=== PATIENT | male | born 1950 | race Caucasian/White ===

== ENCOUNTER → 2017-04-04 09:40 | Outpatient (CLI) | payer MEDICARE, SELFPAY ==
[2017-04-04 11:08] LABS: PSA,Total- Diagnostic < 0.01 ng/mL (0.0-4.0)
== END ==
PROVIDERS: Family Provider Internal Medicine; PCP Internal Medicine; Visit Provider Urology
DX: C61 Malignant neoplasm of prostate (principal)
CPT/HCPCS: 36415; 84153

== ENCOUNTER 2017-09-04 20:20 | Emergency (ER) | payer MEDICARE, SELFPAY ==
[2017-09-04 20:21] VITALS: BP 163/95; PULSE 93; RESP 18; TEMP 36.6; O2SAT 98; BMI 36.1
[2017-09-04 20:43] VITALS: BP 152/93; PULSE 95; RESP 20; O2SAT 98
--- NOTE | 2017-09-04 20:49 | EKG12_ITS ---
Test Reason : Blood Pressure : / mmHG Vent. Rate : 076 BPM Atrial Rate : 076 BPM P-R Int : 134 ms QRS Dur : 102 ms QT Int : 388 ms P-R-T Axes : 057 -06 045 degrees QTc Int : 436 ms Normal sinus rhythm Normal ECG Confirmed by RAUL GRUBER MD ([id number]), publishing editor MELISSA GONZALES ([id number]) on 09/05/2017 1:02:31 PM Referred By: FRANCO Confirmed By:RAUL GRUBER MD
[2017-09-04] MEDS: 0.9% Normal Saline 1,000 ML 150 ML IV (21:49)
[2017-09-04 22:05] LABS: Absolute Lymphocyte Count 2.22 X10^3/ul (0.83-4.51); Absolute Neutrophil Count 6.3 X10^3/uL (2.0-7.7); Basophil# 0.04 X10^3/uL; Basophil% 0.4 % (0-1); Eosinophil# 0.37 X10^3/uL; Eosinophils% 3.8 % (0-5); Hematocrit 44.2 % (40-54); Hemoglobin 14.3 g/dl (13.0-16.5); Lymphocyte # 2.22 X10^3/ul (4.0); Lymphocyte % 22.9 % (19-41); Mean Corp Hgb Conc 32.4 g/gl (32-36); Mean Corpuscular Hgb 28.8 pg (27.0-32.0); Mean Corpuscular Volume 88.9 fL (80-94); Mean Platelet Vol. 10.8 fl (6.2-12.0); Monocyte# 0.81 X10^3/uL; Monocyte% 8.3 % (0-10); Neutrophil # 6.26 X10^3/uL (2.7-7.7); Neutrophil % 64.5 % (47-70); POSITIVE COUNT NO; POSITIVE DIFFERENTIAL NO; POSITIVE MORPHOLOGY NO; Platelet Count 160 K/mm3 (150-450); RBC Distribution Width CV 13.2 % (11.6-14.6); RBC Distribution Width SD 42.7 fl (35.1-43.9); Red Blood Count 4.97 M/mm3 (4.6-6.2); White Blood Count 9.7 K/mm3 (4.4-11.0)
[2017-09-04 22:12] LABS: ALB/GLOB Ratio 1.1 RATIO (0.9-2.4); AST(SGOT) 42 U/L (15-37); Alanine Aminotransfer ALT/SGPT 56 U/L (16-61); Albumin, Serum 3.9 g/dL (3.2-5.0); Alkaline Phosphatase 80 U/L (45-117); Anion Gap 8 (5-15); BUN 21 mg/dL (7-18); BUN/Creat Ratio 14.6 RATIO (10-20); Calcium,Total 9.6 mg/dL (8.5-10.1); Chloride 107 mmol/L (98-107); Creatinine, Serum 1.44 mg/dL (0.70-1.30); EST Glomerular Filtration Rate 52 mL/min (>60); Est Glom Filt Rate - Afr Amer 63 mL/min (>60); Estimated Creatinine Clearance 47.18 ml/min; Globulin 3.7 g/dL (2.2-4.2); Glucose 120 mg/dL (74-106); Potassium 3.8 mmol/L (3.5-5.1); Protein, Total 7.6 g/dL (6.4-8.2); Sodium Level 141 mmol/L (136-145)
[2017-09-04 22:21] VITALS: BP 141/88; PULSE 78; RESP 18; O2SAT 98
--- NOTE | 2017-09-04 22:26 | ED.VISSUMM ---
- ER Visit Summary Date of Service: 09/04/17 Chief Complaint: [Abnormal labs] History of Present Illness: The patient is a 67 M [presents to the emergency department at the request of his primary care physician for abnormal lab values. Patient had routine blood work done today which showed a sodium of 118 and a low calcium. Patient states that he has had chronic fatigue for about a year without any etiology being found. Patient's had significant workup including CAT scans of his head and MRIs of his head. Patient denies recent illness. Patient does drink alcohol moderately. He denies any new medications.] Physical Examination: [HEENT-PERRLA, EOMI. Cranial nerves II through XII grossly intact. TMs clear. Mucous membranes moist. No adenopathy. Cardiovascular-regular rate and rhythm without murmur or ectopy Lungs-clear to auscultation, chest wall stable without crepitus or subcu emphysema Abdomen-normoactive bowel sounds, soft, nontender, no rebound or rigidity, no peritoneal signs. Extremities-intact ?4, normal range of motion, normal pulses, atraumatic] Test Results: [CBC with differential obtained showed a white blood cell count of 9.7, heme globin 14, hematocrit 44, platelets 160. Chemistries here showed a sodium 141, potassium 3.8, chloride 107, CO2 26, glucose 120, BUN 21, creatinine 1.44. Troponin was less than 0.015. EKG obtained arrival shows sinus rhythm with a ventricular rate 76 bpm with no acute ST segment changes.] Emergency Department Course and Treatment: [Patient given normal saline 1 25 cc an hour.] Treatment Plan: [Case was discussed with Dr. Montero and patient will be discharged home as I suspect likely lab error or possibly erroneous labeling.] Disposition: [Discharged home in stable condition] Impression: [Concern for abnormal labs-normal on repeat Chronic fatigue] This note was generated with [employer] dictation software. It may contain incorrect words, spelling, and punctuation that were not noted in review of the chart prior to signing ED Disposition - Plan for ED Patient: Chief Complaint: Abn Labs Referrals: Marzena Montero MD [Primary Care Provider] -
--- NOTE | 2017-09-04 22:29 | ED.DCSUM_ITS ---
- ER Visit Summary Date of Service: 09/04/17 Chief Complaint: [Abnormal labs] History of Present Illness: The patient is a 67 M [presents to the emergency department at the request of his primary care physician for abnormal lab values. Patient had routine blood work done today which showed a sodium of 118 and a low calcium. Patient states that he has had chronic fatigue for about a year without any etiology being found. Patient's had significant workup including CAT scans of his head and MRIs of his head. Patient denies recent illness. Patient does drink alcohol moderately. He denies any new medications. ] Physical Examination: [HEENT-PERRLA, EOMI. Cranial nerves II through XII grossly intact. TMs clear. Mucous membranes moist. No adenopathy. Cardiovascular-regular rate and rhythm without murmur or ectopy Lungs-clear to auscultation, chest wall stable without crepitus or subcu emphysema Abdomen-normoactive bowel sounds, soft, nontender, no rebound or rigidity, no peritoneal signs. Extremities-intact ?4, normal range of motion, normal pulses, atraumatic] Test Results: [CBC with differential obtained showed a white blood cell count of 9.7, heme globin 14, hematocrit 44, platelets 160. Chemistries here showed a sodium 141, potassium 3.8, chloride 107, CO2 26, glucose 120, BUN 21, creatinine 1.44. Troponin was less than 0.015. EKG obtained arrival shows sinus rhythm with a ventricular rate 76 bpm with no acute ST segment changes.] Emergency Department Course and Treatment: [Patient given normal saline 1 25 cc an hour.] Treatment Plan: [Case was discussed with Dr. Montero and patient will be discharged home as I suspect likely lab error or possibly erroneous labeling.] Disposition: [Discharged home in stable condition] Impression: [Concern for abnormal labs-normal on repeat Chronic fatigue] This note was generated with [employer] dictation software. It may contain incorrect words, spelling, and punctuation that were not noted in review of the chart prior to signing ED Disposition - Plan for ED Patient: Chief Complaint: Abn Labs Referrals: Marzena Montero MD [Primary Care Provider] -
--- NOTE | 2017-09-04 22:29 | ED.DEP ---
ED Disposition - Plan for ED Patient: Chief Complaint: Abn Labs Instructions: ED Weakness [facility] Referrals: Marzena Montero MD [Primary Care Provider] - As Needed
== END 2017-09-04 22:39 | disposition home or self-care (01) ==
LOC: ED 21:02
PROVIDERS: Emergency Provider Emergency Medicine; Family Provider Internal Medicine; PCP Internal Medicine
DX: R53.82 Chronic fatigue, unspecified (principal); E11.9 Type 2 diabetes mellitus without complications; E78.00 Pure hypercholesterolemia, unspecified; I10 Essential (primary) hypertension; Z85.46 Personal history of malignant neoplasm of prostate; Z79.84 Long term (current) use of oral hypoglycemic drugs; Z79.899 Other long term (current) drug therapy
CPT/HCPCS: 80053; 84484; 85025; 93005; 96360; 99285; J7030; A4216

== ENCOUNTER → 2017-09-29 09:33 | Outpatient (CLI) | payer MEDICARE, SELFPAY ==
[2017-10-02 14:44] LABS: ACHR Recep AB, Blocking 10 % (0-25); Acetylcholine Receptor Binding < 0.03 nmol/L (0.00-0.24)
== END ==
PROVIDERS: Family Provider Internal Medicine; PCP Internal Medicine; Visit Provider Psychiatry & Neurology Neurology
DX: H53.2 Diplopia (principal)
CPT/HCPCS: 36415; 83519; 84238

== ENCOUNTER → 2017-10-06 09:57 | Outpatient (CLI) | payer MEDICARE, SELFPAY ==
[2017-10-06 11:18] LABS: PSA,Total- Diagnostic 0.01 ng/mL (0.0-4.0)
== END ==
PROVIDERS: Family Provider Internal Medicine; PCP Internal Medicine; Visit Provider Urology
DX: C61 Malignant neoplasm of prostate (principal)
CPT/HCPCS: 36415; 84153

== ENCOUNTER → 2018-04-08 08:37 | Outpatient (CLI) | payer MEDICARE, SELFPAY ==
[2018-04-08 10:21] LABS: PSA,Total- Diagnostic 0.01 ng/mL (0.0-4.0)
== END ==
PROVIDERS: Family Provider Internal Medicine; PCP Internal Medicine; Referring Provider Urology; Visit Provider Urology
DX: C61 Malignant neoplasm of prostate (principal)
CPT/HCPCS: 36415; 84153

== ENCOUNTER → 2018-08-12 | Outpatient (CLI) | payer MEDICARE, SELFPAY ==
[2018-08-12 11:51] LABS: Microalbumin,Random Urine 9.6 mg/L (NO RANGE EST.); Microalbumin:Creatinine Ratio 11.7 mg/g CRE (<30 mg/g CRE)
[2018-08-12 11:56] LABS: Anion Gap 2 (5-15); BUN 18 mg/dL (7-18); Calcium,Total 9.4 mg/dL (8.5-10.1); Chloride 106 mmol/L (98-107); Cholesterol 190 mg/dL (200); Creatinine, Serum 0.86 mg/dL (0.70-1.30); EST Glomerular Filtration Rate 94 mL/min (>60); Est Glom Filt Rate - Afr Amer 114 mL/min (>60); Glucose 136 mg/dL (74-106); High Density Lipoprotein 39 mg/dL; Potassium 4.6 mmol/L (3.5-5.1); Sodium Level 139 mmol/L (136-145); Triglycerides 181 mg/dL; Very Low Density Lipoprotein 36 mg/dL (5-40)
[2018-08-12 11:58] LABS: Hemoglobin A1c 7.1 % (4.2-6.3)
== END | disposition home or self-care (01) ==
PROVIDERS: Family Provider Internal Medicine; PCP Internal Medicine; Referring Provider Internal Medicine; Visit Provider Internal Medicine
DX: E11.9 Type 2 diabetes mellitus without complications (principal); E78.00 Pure hypercholesterolemia, unspecified
CPT/HCPCS: 36415; 80048; 80061; 82043; 82570; 83036

== ENCOUNTER → 2018-10-08 | Outpatient (CLI) | payer MEDICARE, SELFPAY ==
[2018-10-08 12:21] LABS: PSA,Total- Diagnostic < 0.01 ng/mL (0.0-4.0)
== END | disposition home or self-care (01) ==
LOC: LAB 11:26
PROVIDERS: Family Provider Internal Medicine; PCP Internal Medicine; Referring Provider Urology; Visit Provider Urology
DX: C61 Malignant neoplasm of prostate (principal)
CPT/HCPCS: 36415; 84153

== ENCOUNTER → 2018-11-19 | Outpatient (CLI) | payer MEDICARE, SELFPAY ==
[2018-11-19 12:00] LABS: AST(SGOT) 38 U/L (15-37); Alanine Aminotransfer ALT/SGPT 59 U/L (16-61); Albumin, Serum 3.8 g/dL (3.2-5.0); Alkaline Phosphatase 102 U/L (45-117); Bilirubin, Direct 0.22 mg/dL (0.00-0.30); Globulin 3.7 g/dL (2.2-4.2); Protein, Total 7.5 g/dL (6.4-8.2)
== END | disposition home or self-care (01) ==
LOC: LAB 10:57
PROVIDERS: Family Provider Internal Medicine; PCP Internal Medicine; Referring Provider Internal Medicine; Visit Provider Internal Medicine
DX: R74.8 Abnormal levels of other serum enzymes (principal)
CPT/HCPCS: 36415; 80076

== ENCOUNTER → 2019-04-12 | Outpatient (CLI) | payer MEDICARE, SELFPAY ==
[2019-04-12 10:58] LABS: PSA,Total- Diagnostic 0.01 ng/mL (0.0-4.0)
== END | disposition home or self-care (01) ==
LOC: LAB 09:39
PROVIDERS: PCP Internal Medicine; Visit Provider Urology
DX: C61 Malignant neoplasm of prostate (principal)
CPT/HCPCS: 36415; 84153

== ENCOUNTER → 2019-08-10 | Outpatient (CLI) | payer MEDICARE, SELFPAY ==
[2019-08-10 08:22] LABS: AST(SGOT) 41 U/L (15-37); Alanine Aminotransfer ALT/SGPT 60 U/L (16-61); Albumin, Serum 3.6 g/dL (3.2-5.0); Alkaline Phosphatase 68 U/L (45-117); Anion Gap 7 (5-15); BUN 11 mg/dL (7-18); BUN/Creat Ratio 12.5 RATIO (10-20); Chloride 105 mmol/L (98-107); Creatinine, Serum 0.88 mg/dL (0.70-1.30); EST Glomerular Filtration Rate 92 mL/min (>60); Est Glom Filt Rate - Afr Amer 111 mL/min (>60); Globulin 3.5 g/dL (2.2-4.2); Glucose 150 mg/dL (74-106); Potassium 4.4 mmol/L (3.5-5.1); Protein, Total 7.1 g/dL (6.4-8.2); Sodium Level 142 mmol/L (136-145)
[2019-08-10 09:42] LABS: Hemoglobin A1c 6.9 % (3.8-5.6)
[2019-08-10 11:13] LABS: Absolute Lymphocyte Count 1.99 X10^3/uL (0.83-4.51); Absolute Neutrophil Count 5.3 X10^3/uL (2.0-7.7); Basophil# 0.06 X10^3/uL; Basophil% 0.7 % (0-1); Eosinophil# 0.28 X10^3/uL; Eosinophils% 3.4 % (0-5); Hematocrit 46.5 % (40-54); Hemoglobin 14.8 g/dL (13.0-16.5); Lymphocyte # 1.99 X10^3/ul (4.0); Lymphocyte % 24.4 % (19-41); Mean Corp Hgb Conc 31.8 g/dL (32-36); Monocyte# 0.48 X10^3/uL; Monocyte% 5.9 % (0-10); NRBC Flagged by Analyzer 0 % (0-5); Neutrophil # 5.32 X10^3/uL (2.7-7.7); Neutrophil % 65.2 % (47-70); Platelet Count 138 K/mm3 (150-450); RBC Distribution Width CV 12.6 % (11.6-14.6); RBC Distribution Width SD 41.3 fl (35.1-43.9); Red Blood Count 5.11 M/mm3 (4.6-6.2); White Blood Count 8.2 K/mm3 (4.4-11.0)
== END | disposition home or self-care (01) ==
LOC: LAB 07:14
PROVIDERS: PCP Internal Medicine; Referring Provider Internal Medicine; Visit Provider Nurse Practitioner Primary Care
DX: E11.9 Type 2 diabetes mellitus without complications (principal); K92.1 Melena
CPT/HCPCS: 36415; 80053; 83036; 85025

== ENCOUNTER → 2020-04-05 10:10 | Outpatient (CLI) | payer MEDICARE, SELFPAY ==
[2020-04-05 12:28] LABS: PSA,Total- Diagnostic 0.01 ng/mL (0.0-4.0)
[2020-04-05 12:45] LABS: ALB/GLOB Ratio 1.1 RATIO (0.9-2.4); AST(SGOT) 32 U/L (15-37); Alanine Aminotransfer ALT/SGPT 40 U/L (16-61); Albumin, Serum 3.8 g/dL (3.2-5.0); Alkaline Phosphatase 87 U/L (45-117); Anion Gap 7 (5-15); BUN 17 mg/dL (7-18); BUN/Creat Ratio 21.2 RATIO (10-20); Calcium,Total 9.5 mg/dL (8.5-10.1); Chloride 102 mmol/L (98-107); Cholesterol 201 mg/dL (200); EST Glomerular Filtration Rate 102 mL/min (>60); Est Glom Filt Rate - Afr Amer 123 mL/min (>60); GGTP 56 U/L (15-85); Globulin 3.6 g/dL (2.2-4.2); Glucose 113 mg/dL (74-106); High Density Lipoprotein 44 mg/dL; Potassium 4.2 mmol/L (3.5-5.1); Protein, Total 7.4 g/dL (6.4-8.2); Sodium Level 136 mmol/L (136-145); Triglycerides 165 mg/dL; Very Low Density Lipoprotein 33 mg/dL (5-40)
[2020-04-05 12:53] LABS: Hemoglobin A1c 6.7 % (3.8-5.6)
== END ==
PROVIDERS: PCP Internal Medicine; Referring Provider Urology; Visit Provider Urology
DX: C61 Malignant neoplasm of prostate (principal); E11.9 Type 2 diabetes mellitus without complications; K76.0 Fatty (change of) liver, not elsewhere classified; Z85.46 Personal history of malignant neoplasm of prostate
CPT/HCPCS: 36415; 80053; 80061; 82977; 83036; 84153

== ENCOUNTER 2020-04-25 13:18 | Outpatient (RCR) | payer MEDICARE, SELFPAY ==
[2020-04-25] MEDS: COVID-19 VACC, MRNA(PFIZER)/PF 30 MCG/0.3 ML SYRINGE IM (15:39)
[2020-05-16] MEDS: COVID-19 VACC, MRNA(PFIZER)/PF 30 MCG/0.3 ML SYRINGE IM (15:24)
== END 2020-07-25 23:59 ==
LOC: IMMUN 13:18
PROVIDERS: PCP Internal Medicine; Referring Provider Family Medicine; Visit Provider Family Medicine
DX: Z23 Encounter for immunization (principal)
CPT/HCPCS: 0001A; 0002A; 91300

== ENCOUNTER → 2020-06-19 12:23 | Outpatient (CLI) | payer MEDICARE, SELFPAY ==
[2020-06-19 13:26] LABS: AST(SGOT) 24 U/L (15-37); Alanine Aminotransfer ALT/SGPT 35 U/L (16-61); Albumin, Serum 3.7 g/dL (3.2-5.0); Alkaline Phosphatase 90 U/L (45-117); Anion Gap 5 (5-15); BUN 12 mg/dL (7-18); BUN/Creat Ratio 14.7 RATIO (10-20); Calcium,Total 8.9 mg/dL (8.5-10.1); Chloride 105 mmol/L (98-107); Creatinine, Serum 0.82 mg/dL (0.70-1.30); EST Glomerular Filtration Rate 100 mL/min (>60); Est Glom Filt Rate - Afr Amer 121 mL/min (>60); Free T3 2.3 pg/mL (2.18-3.98); Globulin 3.6 g/dL (2.2-4.2); Glucose 109 mg/dL (74-106); Potassium 4.7 mmol/L (3.5-5.1); Protein, Total 7.3 g/dL (6.4-8.2); Sodium Level 140 mmol/L (136-145); T4 Free Direct 0.97 ng/dL (0.76-1.46)
== END ==
PROVIDERS: PCP Internal Medicine; Referring Provider Internal Medicine; Visit Provider Internal Medicine
DX: E03.9 Hypothyroidism, unspecified (principal); E78.00 Pure hypercholesterolemia, unspecified
CPT/HCPCS: 36415; 80053; 84439; 84443; 84481

== ENCOUNTER 2020-12-30 12:22 | Emergency (ER) | payer MEDICARE, SELFPAY ==
[2020-12-30 12:24] VITALS: BP 143/70; PULSE 78; RESP 16; TEMP 37.1; O2SAT 99; BMI 34.4
--- NOTE | 2020-12-30 12:30 | EKG12_ITS ---
Test Reason : CP Blood Pressure : / mmHG Vent. Rate : 074 BPM Atrial Rate : 074 BPM P-R Int : 134 ms QRS Dur : 104 ms QT Int : 398 ms P-R-T Axes : 048 -15 045 degrees QTc Int : 441 ms Normal sinus rhythm Normal ECG Confirmed by ALLYN LEE, RAUL ([id number]), avid editor ESMER JACOBSEN ([id number]) on 01/01/2021 10:55:54 AM Referred By: LUCIA/FRANCO Confirmed By:RAUL GRUBER MD
--- NOTE | 2020-12-30 12:30 | RAD_ITS ---
STUDY: X-RAY CHEST REASON FOR EXAM: Male, 70 years old. chest pain TECHNIQUE: Single AP portable view of the chest. COMPARISON: None. FINDINGS: The lungs are clear and expanded. There is no demonstrated pleural abnormality. Normal size heart. Normal mediastinum and tim. Normal visualized pulmonary arteries. Normal visualized aortic arch and descending thoracic aorta. Normal visualized thoracic spine. Normal visualized ribs, clavicles, and shoulders. There is no demonstrated abnormality of the visualized soft tissue structures of the upper abdomen. RAD/Chest 1 View (Portable) IMPRESSION: Normal x-ray examination of the chest. Electronically Signed: Sourav Zuniga MD at 13:32 EST Tel , Service support ,
[2020-12-30 12:34] VITALS: PULSE 82; RESP 20; O2SAT 98
[2020-12-30] MEDS: Aspirin 81 MG TAB.CHEW 324 MG PO (12:39)
--- NOTE | 2020-12-30 12:53 | ED.VIS.CHEST ---
HPI History of Present Illness Chief Complaint: Chest Pain Narrative Narrative: 70-year-old male presenting with chest pain and palpitations which have been occurring intermittently for about a month. He denies any syncope or near syncopal events. He states this started after he got his Covid booster shot. Patient states it happens at rest and he can exert himself fully and it does not change his palpitations. He does not have any fever, chills, cough or shortness of breath. He states he has no known cardiac history but does have hypertension and diabetes. No lower extremity edema. No history of DVT/PE and no risk factors. PFSH PFS Home Medications losartan 100 mg PO DAILY 04/23/16 [History Last Taken 11/06/16 06:00] meloxicam 15 mg PO DAILY 04/23/16 [History Last Taken 04/23/16] metformin 500 mg PO BIDCM 04/23/16 [History Last Taken 04/23/16] omeprazole 20 mg PO BID 04/23/16 [History Last Taken 11/06/16 06:00] simvastatin 20 mg PO QHS 04/23/16 [History Last Taken 04/22/16] Allergy/AdvReac Type Severity Reaction Status Date / Time lisinopril AdvReac cough Verified 12/30/20 12:23 Social History Smoking Status: Former smoker ROS ROS ED Constitutional Constitutional ED: Denies chills or fever(s) Eyes Eyes: Denies blurry vision or change in vision ENT ENT ED: Denies rhinorrhea or sore throat Cardiovascular Cardiovascular: Reports chest pain and palpitations; Denies as per HPI Respiratory/Chest Respiratory/Chest: Denies cough or dyspnea Gastrointestinal Gastrointestinal: Denies abdominal pain, nausea or vomiting Genitourinary Genitourinary ED: Denies dysuria or hematuria Musculoskeletal Musculoskeletal: Denies myalgias Integumentary Denies Abrasions or rash Neurologic Neurologic: Denies headache(s) or weakness Psychiatric Psychiatric: Denies anxiety or depression EXAM Physical Exam Const Vital Signs: 12/30/20 12:24 12/30/20 12:30 12/30/20 12:34 Temperature 98.7 F Temperature Source Temporal Pulse Rate 78 82 Respiratory Rate 16 20 H Respiratory Effort Normal Non-Labored Respiratory Pattern Normal Blood Pressure 143/70 H Blood Pressure Mean 94 Pulse Ox 99 98 Oxygen Delivery Method Room Air Room Air 12/30/20 13:52 Temperature Temperature Source Pulse Rate 77 Respiratory Rate 16 Respiratory Effort Respiratory Pattern Blood Pressure 114/72 Blood Pressure Mean 86 Pulse Ox 93 Oxygen Delivery Method Room Air Positive well nourished and well developed General Appearance ED: well developed and NAD; Negative for pallor HEENT Reports moist mucous membranes normocephalic and atraumatic Eyes EOMs intact bilaterally Chest Wall inspection of chest normal and palpation of chest normal Resp normal respiratory effort Effort and Inspection: respiratory distress Cardio regular rate GI normal to inspection, nondistended, normoactive bowel sounds Psych mental status grossly normal Skin General Skin Exam: Negative for jaundice or pallor Heart Score History: Slightly/Non-Suspicious ECG: Normal Age: >/= 65 years Risk Factors: >/= 3 Risk Factors or History of CAD Troponin: </= Normal Limit Score: 4 MDM MDM MDM Narrative Medical decision making narrative: Patient is presenting with chest pain and palpitations. Describes the pain as a slight pressure and it occurs when the palpitations occur.The palpitations are last for hours at other times the last for minutes. His EKG on arrival shows a normal sinus rhythm with a ventricular rate of 74 bpm without signs of ischemia or dysrhythmia. While examining him in the room I could visibly see multiple PVCs occurring. He states that the PVCs do correlate with his palpitations. Patient not tachycardic or diaphoretic. He does not appear to be in distress. Will obtain chest x-ray and blood work. Patient CBC is unremarkable. BMP is also normal. Electrolytes are normal. Magnesium is normal. TSH within normal limits. Initial troponin is 33. Delta troponin 32. chest x-ray on my interpretation shows no acute cardiopulmonary process and the radiologist does agree. Impression: 1. PVCs 2. Palpitations 3. Chest pain Lab Data Attestation: I reviewed the patient's lab results. Labs: Laboratory Results - last 24 hr 12/30/20 12/30/20 12/30/20 12:30 12:45 12:45 WBC 9.5 RBC 4.96 Hgb 14.2 Hct 43.8 MCV 88.3 MCH 28.6 MCHC 32.4 RDW Std Deviation 39.6 RDW Coeff of Tricia 12.2 Plt Count 147 L MPV 11.5 Immature Gran % (Auto) 0.300 Neut % (Auto) 56.5 Lymph % (Auto) 32.3 [place] % (Auto) 6.5 Eos % (Auto) 3.9 Baso % (Auto) 0.5 Absolute Neuts (auto) 5.3 Absolute Lymphs (auto) 3.05 Nucleated RBC % 0 Sodium 140 Potassium 4.1 Chloride 107 Carbon Dioxide 28.0 Anion Gap 5 BUN 12 Creatinine 0.96 Estim Creat Clear Calc 67.90 Est GFR (MDRD) Af Amer 100 Est GFR (MDRD) Non-Af 82 BUN/Creatinine Ratio 12.5 Glucose 142 H Calcium 9.3 Magnesium 1.9 Troponin I High Sens 33 TSH 1.05 12/30/20 14:30 WBC RBC Hgb Hct MCV MCH MCHC RDW Std Deviation RDW Coeff of Tricia Plt Count MPV Immature Gran % (Auto) Neut % (Auto) Lymph % (Auto) [place] % (Auto) Eos % (Auto) Baso % (Auto) Absolute Neuts (auto) Absolute Lymphs (auto) Nucleated RBC % Sodium Potassium Chloride Carbon Dioxide Anion Gap BUN Creatinine Estim Creat Clear Calc Est GFR (MDRD) Af Amer Est GFR (MDRD) Non-Af BUN/Creatinine Ratio Glucose Calcium Magnesium Troponin I High Sens 32 TSH Radiography Diagnostic Testing: Clinical Impression(s) from Imaging Studies Chest X-Ray 12/30/20 12:30 IMPRESSION: Normal x-ray examination of the chest. Electronically Signed: Sourav Zuniga MD at 13:32 EST Tel , Service support , Discharge Plan Triage Chief Complaint: Chest Pain Other Complaint: Palpitations ED Provider: Modesto Brown Dx/Rx/DC Orders Instructions: PVCs, ED Palpitations Prescriptions: No Action metformin 500 MG tablet 500 mg PO BIDCM RF: 0 meloxicam 15 MG tablet 15 mg PO DAILY RF: 0 simvastatin 20 MG tablet 20 mg PO QHS RF: 0 omeprazole 20 MG capsule 20 mg PO BID RF: 0 losartan 100 MG tablet 100 mg PO DAILY RF: 0 Primary Care Provider: Marzena Montero Referrals: Marzena Montero MD [Primary Care Provider] - Evangelista Montoya MD [STAFF PHYSICIAN] - As Needed Disposition Disposition: Home, Self Care
[2020-12-30 12:57] LABS: Absolute Lymphocyte Count 3.05 X10^3/uL (0.83-4.51); Absolute Neutrophil Count 5.3 X10^3/uL (2.0-7.7); Basophil# 0.05 X10^3/uL; Basophil% 0.5 % (0-1); Eosinophil# 0.37 X10^3/uL; Eosinophils% 3.9 % (0-5); Hematocrit 43.8 % (40-54); Hemoglobin 14.2 g/dL (13.0-16.5); Lymphocyte # 3.05 X10^3/ul (0.83-4.51); Lymphocyte % 32.3 % (19-41); Mean Corp Hgb Conc 32.4 g/dL (32-36); Mean Corpuscular Hgb 28.6 pg (27.0-32.0); Mean Corpuscular Volume 88.3 fL (80-94); Mean Platelet Vol. 11.5 fl (6.2-12.0); Monocyte# 0.61 X10^3/uL; Monocyte% 6.5 % (0-10); NRBC Flagged by Analyzer 0 % (0-5); Neutrophil # 5.34 X10^3/uL (2.7-7.7); Neutrophil % 56.5 % (47-70); Platelet Count 147 K/mm3 (150-450); RBC Distribution Width CV 12.2 % (11.6-14.6); RBC Distribution Width SD 39.6 fl (35.1-43.9); Red Blood Count 4.96 M/mm3 (4.6-6.2); White Blood Count 9.5 K/mm3 (4.4-11.0)
[2020-12-30 13:18] LABS: Anion Gap 5 (5-15); BUN 12 mg/dL (7-18); BUN/Creat Ratio 12.5 RATIO (10-20); Calcium,Total 9.3 mg/dL (8.5-10.1); Chloride 107 mmol/L (98-107); Creatinine, Serum 0.96 mg/dL (0.70-1.30); EST Glomerular Filtration Rate 82 mL/min (>60); Est Glom Filt Rate - Afr Amer 100 mL/min (>60); Glucose 142 mg/dL (74-106); Potassium 4.1 mmol/L (3.5-5.1); Sodium Level 140 mmol/L (136-145); Troponin-I HS 33 pg/mL (3.0-78.0)
[2020-12-30 13:28] LABS: Magnesium 1.9 mg/dL (1.6-2.6); Thyroid Stim Hormone (TSH) 1.05 uIU/mL (0.358-3.74)
[2020-12-30 13:52] VITALS: BP 114/72; PULSE 77; RESP 16; O2SAT 93
[2020-12-30 15:00] LABS: Troponin-I HS 32 pg/mL (3.0-78.0)
== END 2020-12-30 15:23 | disposition home or self-care (01) ==
PROVIDERS: Emergency Provider Student in an Organized Health Care Education/Training Program; PCP Internal Medicine
DX: I49.3 Ventricular premature depolarization (principal); R07.9 Chest pain, unspecified; R00.2 Palpitations; E11.9 Type 2 diabetes mellitus without complications; I10 Essential (primary) hypertension; Z79.899 Other long term (current) drug therapy; Z87.891 Personal history of nicotine dependence
CPT/HCPCS: 71045; 80048; 83735; 84443; 84484; 85025; 93005; 99285; A4216

== ENCOUNTER → 2021-02-27 07:46 | Outpatient (CLI) | payer MEDICARE, SELFPAY ==
[2021-02-27 08:04] LABS: Hematocrit 46.3 % (40-54); Hemoglobin 14.9 g/dL (13.0-16.5); Mean Corp Hgb Conc 32.2 g/dL (32-36); Mean Corpuscular Hgb 28.4 pg (27.0-32.0); Mean Corpuscular Volume 88.2 fL (80-94); Mean Platelet Vol. 11.3 fl (6.2-12.0); Platelet Count 156 K/mm3 (150-450); RBC Distribution Width CV 12.7 % (11.6-14.6); RBC Distribution Width SD 40.9 fl (35.1-43.9); Red Blood Count 5.25 M/mm3 (4.6-6.2)
[2021-02-27 08:33] LABS: Anion Gap 6 (5-15); BUN 12 mg/dL (7-18); BUN/Creat Ratio 13.5 RATIO (10-20); Calcium,Total 9.4 mg/dL (8.5-10.1); Chloride 103 mmol/L (98-107); Creatinine, Serum 0.89 mg/dL (0.70-1.30); EST Glomerular Filtration Rate 90 mL/min (>60); Est Glom Filt Rate - Afr Amer 109 mL/min (>60); Glucose 155 mg/dL (74-106); Potassium 4.3 mmol/L (3.5-5.1); Sodium Level 139 mmol/L (136-145)
== END ==
DX: R94.39 Abnormal result of other cardiovascular function study (principal)
CPT/HCPCS: 36415; 80048; 85027

== ENCOUNTER 2021-04-04 10:39 | Outpatient (CLI) | payer MEDICARE, SELFPAY ==
[2021-04-04 13:10] LABS: PSA,Total- Diagnostic < 0.01 ng/mL (0.0-4.0)
== END 2021-04-04 23:59 | disposition home or self-care (01) ==
LOC: LAB 10:41
PROVIDERS: Referring Provider Urology; Visit Provider Urology
DX: C61 Malignant neoplasm of prostate (principal)
CPT/HCPCS: 36415; 84153

== ENCOUNTER → 2021-06-19 | Outpatient (CLI) | payer MEDICARE, SELFPAY ==
[2021-06-19 11:35] LABS: Anion Gap 6 (5-15); BUN 11 mg/dL (7-18); BUN/Creat Ratio 14.3 RATIO (10-20); Calcium,Total 8.9 mg/dL (8.5-10.1); Chloride 104 mmol/L (98-107); Creatinine, Serum 0.77 mg/dL (0.70-1.30); EST Glomerular Filtration Rate 106 mL/min (>60); Est Glom Filt Rate - Afr Amer 128 mL/min (>60); Glucose 113 mg/dL (74-106); Potassium 4.7 mmol/L (3.5-5.1); Sodium Level 139 mmol/L (136-145)
== END | disposition home or self-care (01) ==
LOC: LAB 10:08
DX: I50.20 Unspecified systolic (congestive) heart failure (principal)
CPT/HCPCS: 36415; 80048

== ENCOUNTER → 2021-11-19 | Outpatient (CLI) | payer MEDICARE, SELFPAY ==
--- NOTE | 2021-11-19 10:52 | RAD_ITS ---
STUDY: X-RAY CHEST REASON FOR EXAM: Male, 71 years old. Muscle strain. TECHNIQUE: PA and lateral views of the chest. COMPARISON: 12/30/2020 FINDINGS: The lungs are clear and expanded. There is no demonstrated pleural abnormality. Normal size heart. Normal mediastinum and tim. Normal visualized pulmonary arteries. Normal visualized aortic arch and descending thoracic aorta. Normal visualized thoracic spine. Normal visualized ribs, clavicles, and shoulders. There is no demonstrated abnormality of the visualized soft tissue structures of the upper abdomen. RAD/Chest PA and Lateral IMPRESSION: No acute cardiopulmonary disease or major interval change. Electronically Signed: Panchito Hall DO at 17:07 EDT ,
== END | disposition home or self-care (01) ==
LOC: RAD 10:51
PROVIDERS: Referring Provider Specialist; Visit Provider Specialist
DX: S46.011D Strain of muscle(s) and tendon(s) of the rotator cuff of right shoulder, subsequent encounter (principal); R93.6 Abnormal findings on diagnostic imaging of limbs
CPT/HCPCS: 71046

== ENCOUNTER → 2021-12-06 | Outpatient (CLI) | payer MEDICARE, SELFPAY ==
--- NOTE | 2021-12-06 13:36 | MRI_ITS ---
INDICATION: BICIPITAL TENDINITIS, STRAIN ROTATOR CUFF EXAMINATION: MRI - RIGHT MR Shoulder W/O Contrast TECHNIQUE: Multiplanar and multisequence MR images of the right shoulder. IV Contrast Dosage and Agent: None. COMPARISON: Chest radiograph November 19, 2021. FINDINGS: BONE: No fracture or abnormal bone marrow signal. ACROMIOCLAVICULAR JOINT: Severe degenerative osteophyte formation and subchondral cyst formation. Normal alignment. No inferolateral acromial tilt. Coracoclavicular ligaments are intact. SUBACROMIAL-SUBDELTOID SPACE: Small subacromial subdeltoid bursal fluid collection.. GLENOHUMERAL JOINT: Normal alignment. Articular cartilage intact. No joint effusion. No rotator interval edema. ROTATOR CUFF: Mild increased signal within the distal supraspinatus tendon with localized 2 mm linear T2 signal at the anterior footplate insertion. Infraspinatus, subscapularis, teres minor tendons are intact. There is no cuff muscle atrophy or intramuscular edema. LABRUM: Intact, limited evaluation on non-arthrographic exam. BICEPS TENDON: The extra-articular biceps tendon is in the bicipital groove. The intra-articular biceps tendon is normal in appearance without gross thickening or increased internal signal. OTHER SOFT TISSUES: Unremarkable spinoglenoid and suprascapular notches. MRI/Upper Ext Joint Only(Routine) IMPRESSION: Subacromial subdeltoid bursitis. Distal supraspinatus tendinosis with findings compatible with small rim rent anterior footplate tear. Severe acromioclavicular osteoarthritis. Electronically Signed: Jones Castro MD at 8:18 EDT ,
== END | disposition home or self-care (01) ==
PROVIDERS: PCP Internal Medicine; Visit Provider Specialist
DX: S46.011A Strain of muscle(s) and tendon(s) of the rotator cuff of right shoulder, initial encounter (principal); M75.21 Bicipital tendinitis, right shoulder; R53.1 Weakness
CPT/HCPCS: 73221

== ENCOUNTER → 2022-04-10 | Outpatient (CLI) | payer MEDICARE, SELFPAY ==
[2022-04-10 11:46] LABS: PSA,Total - Annual Screen 0.03 ng/mL (0.00-4.00)
== END | disposition home or self-care (01) ==
LOC: LAB 10:43
PROVIDERS: PCP Internal Medicine; Referring Provider Urology; Visit Provider Urology
DX: Z12.5 Encounter for screening for malignant neoplasm of prostate (principal)
CPT/HCPCS: 36415; 84153; G0103

== ENCOUNTER → 2022-06-12 | Outpatient (CLI) | payer MEDICARE, SELFPAY ==
--- NOTE | 2022-06-12 07:00 | MRI_ITS ---
EXAM: MR LEFT UPPER EXTREMITY WITHOUT INTRAVENOUS CONTRAST, SHOULDER CLINICAL INDICATION: rule out rotator cuff tear-LEFT shoulder pain TECHNIQUE: Multiplanar and multisequence MR images of the left shoulder without intravenous contrast. This report was created using [employer] report [employer] technology. COMPARISON: April 29, 2022 FINDINGS: TENDONS: SUPRASPINATUS: Low to moderate grade articular sided tear involving the posterior fibers of supraspinatus tendon with tear specifically at the footprint of the tendon. INFRASPINATUS: Infraspinatus tendon is intact. SUBSCAPULARIS: Unremarkable. Intact. TERES MINOR: Unremarkable. Intact. BICEPS BRACHII, LONG HEAD: Unremarkable. The extra-articular biceps tendon is in the bicipital groove. The intra-articular biceps tendon is normal. LIGAMENTS: GLENOHUMERAL: Unremarkable. Intact. CORACOACROMIAL: Type II acromion with curved undersurface. No coracoacromial ligament thickening. No subacromial enthesophyte. No os acromiale. MUSCLES: Muscles are normal. No rotator cuff muscle atrophy. FLUID: Small amount of fluid in subacromial/subdeltoid bursa is nonspecific but can be seen with bursitis in the appropriate clinical setting. Picao-kc-[id number] suprapatellar joint effusion with synovitis at the axillary pouch. CARTILAGE: Unremarkable. Articular cartilage intact. GLENOID LABRUM: Unremarkable. No labral tear. BONES/JOINTS: Sdfdbets-py-zoadmu hypertrophic degenerative changes of the acromioclavicular joint with moderate mass effect on the underlying soft tissues. [employer]Sachs deformity of the posterior superior humeral head is suspected with no bone marrow edema. Small cysts at the superior humeral head laterally. OTHER SOFT TISSUES: Unremarkable. No rotator interval edema. OTHER FINDINGS: In the appropriate clinical setting. MRI/Upper Ext Joint Only(Routine) IMPRESSION: 1. Low to moderate grade articular sided tear involving the posterior fibers of supraspinatus tendon with tear specifically at the footprint of the tendon. 2. Small amount of fluid in subacromial/subdeltoid bursa is nonspecific but can be seen with bursitis in the appropriate clinical setting. Electronically Signed: Eleazar Troncoso MD at 21:45 EDT ,
== END | disposition home or self-care (01) ==
LOC: MRI 06-17 13:45
PROVIDERS: PCP Internal Medicine; Referring Provider Orthopaedic Surgery Sports Medicine; Visit Provider Orthopaedic Surgery Sports Medicine
DX: M75.42 Impingement syndrome of left shoulder (principal)
CPT/HCPCS: 73221

== ENCOUNTER → 2022-10-08 | Outpatient (CLI) | payer MEDICARE, SELFPAY ==
[2022-10-08 09:48] LABS: PSA,Total- Diagnostic 0.04 ng/mL (0.0-4.0)
== END | disposition home or self-care (01) ==
LOC: LAB 08:51
PROVIDERS: PCP Internal Medicine; Referring Provider Urology; Visit Provider Urology
DX: C61 Malignant neoplasm of prostate (principal)
CPT/HCPCS: 36415; 84153

== ENCOUNTER 2022-11-13 08:38 | Day surgery (SDC) | payer MEDICARE, SELFPAY ==
--- NOTE | 2022-10-31 09:26 | EKG12_ITS ---
Test Reason : PREOP Blood Pressure : / mmHG Vent. Rate : 068 BPM Atrial Rate : 068 BPM P-R Int : 146 ms QRS Dur : 096 ms QT Int : 420 ms P-R-T Axes : 046 -02 054 degrees QTc Int : 446 ms Normal sinus rhythm Inferior infarct , age undetermined Abnormal ECG When compared with ECG of 30-DEC-2020 12:31, Inferior infarct is now Present Confirmed by ALLYN LEE, RAUL ([id number]), editor sound DELFINO NAGY ([id number]) on 11/06/2022 10:14:49 AM Referred By: Emery Ramirez Confirmed By:RAUL GRUBER MD
[2022-10-31 09:38] LABS: Hemoglobin 14.6 g/dL (13.0-16.5); Mean Corp Hgb Conc 31.1 g/dL (32-36); Mean Platelet Vol. 11.8 fl (6.2-12.0); Platelet Count 171 K/mm3 (150-450); RBC Distribution Width CV 12.3 % (11.6-14.6); RBC Distribution Width SD 39.8 fl (35.1-43.9); Red Blood Count 5.22 M/mm3 (4.6-6.2); White Blood Count 9.4 K/mm3 (4.4-11.0)
[2022-10-31 09:48] LABS: Partial Thromboplast Time 27.6 Seconds (24.1-36.2); Prothrombin Time (Protime)PT. 12.9 SECONDS (11.7-14.9)
[2022-10-31 10:25] LABS: AST(SGOT) 13 U/L (15-37); Alanine Aminotransfer ALT/SGPT 20 U/L (16-61); Albumin, Serum 3.7 g/dL (3.2-5.0); Alkaline Phosphatase 94 U/L (45-117); Anion Gap 1 (5-15); BUN 13 mg/dL (7-18); BUN/Creat Ratio 16.9 RATIO (10-20); Bilirubin, Direct 0.21 mg/dL (0.00-0.30); Calcium,Total 9.1 mg/dL (8.5-10.1); Chloride 105 mmol/L (98-107); Creatinine, Serum 0.77 mg/dL (0.70-1.30); EST Glomerular Filtration Rate 106 mL/min (>60); Est Glom Filt Rate - Afr Amer 128 mL/min (>60); Globulin 3.4 g/dL (2.2-4.2); Glucose 136 mg/dL (74-106); Potassium 4.5 mmol/L (3.5-5.1); Protein, Total 7.1 g/dL (6.4-8.2); Sodium Level 137 mmol/L (136-145)
[2022-10-31 10:42] LABS: Hemoglobin A1c 6.8 % (3.8-5.6)
[2022-11-13] VITALS (9 sets, daily range): BP systolic 130–159; BP diastolic 75–119; PULSE 51–64; RESP 15–18; TEMP 36.1–36.3; O2SAT 92–99; BMI 33.5
[2022-11-13] MEDS: Lactated Ringers 1,000 ML 15 ML IV (09:03)
[2022-11-13 09:40] LABS: Bedside Glucose 118 mg/dL (74-106)
--- NOTE | 2022-11-13 10:44 | PCM.HP.STD ---
HPI - General HPI Narrative DESTINEY OCAMPO, is a 72 M who presents for left shoulder arthroscopy subacromial decompression rotator cuff repair. No changes to H and P. RAB and narcotic counselling and post op discussed. OK to proceed. Plan for pre op block. MR#: [id number] Acct: [id number] Name: DESTINEY OCAMPO Rep #: [id number] : 1950 Provider: Dr. Emery Ramirez MD Age/Sex: 72/M Location: [facility] [place] Status: Signed Intake Vital Signs 04/29/2309:03 Height 5 ft 7 in Intake Visit Reasons: left shoulder Chief Complaint: left shoulder Is patient in pain?: Yes Pain scale (1-10): 6 Allergies lisinopril Adverse Reaction (Verified 10/17/22 10:20) cough Medications metformin 500 mg tablet 500 mg PO BIDCM 04/23/16 [History Confirmed 10/17/22] omeprazole 20 mg capsule,delayed release 20 mg PO BID 04/23/16 [History Confirmed 10/17/22] atorvastatin 40 mg tablet ea PO 04/29/22 [History Confirmed 10/17/22] metoprolol succinate 50 mg tablet,extended release 24 hr ea PO 04/29/22 [History Confirmed 10/17/22] sacubitril 49 mg-valsartan 51 mg tablet (Entresto) 1 tab PO 04/29/22 [History Confirmed 10/17/22] venlafaxine 75 mg capsule,extended release 24 hr cap PO 04/29/22 [History Confirmed 10/17/22] magnesium 250 mg tablet 250 mg PO DAILY 10/17/22 [History Confirmed 10/17/22] PFSH Medical History Internal impingement of left shoulder Left rotator cuff tear Left shoulder pain Prostate cancer Surgical History Hx of prostatectomy Social History Smoking Status: Former smoker alcohol intake: current alcohol intake frequency: a few times a week HPI left shoulder Details: Parts of this documentation were recorded by a scribe, this documentation accurately reflects the service provided and the decisions made by me, Dr. Emery Ramirez MD 10/17/22 0827. DESTINEY OCAMPO is a 72 year old M here today for FU L shoulder pain, PASTA tear. Patient still mostly having pain to left shoulder and some crepitus there. Is mostly located on the lateral side going down the arm worse with lifting. Patient here with his . Ortho Exam General General: Yes no acute distress Neurologic: Yes alert and Yes oriented x3 Psychologic: Yes reasonable and appropriate Left Shoulder Skin/Wound: Yes CDI, No ecchymosis, No erythema and No swelling Testing: Yes Hawkin's, Yes Neer's, No Speed's, No TTP Biceps, No TTP AC Joint, No Drop Arm, Yes AROM-Forward Elevation 0-180, Yes PROM-External Rotation at side 0-60, Yes empty can and No cross arm SHOULDER: strength fe and er 4+ both Supplemental Info [facility] Services [address] [place] [address] Upper Ext Joint Only(Routine) MR#: [id number] Acct: [id number] Name: DESTINEY OCAMPO Rep #: [id number] : 1950 M 72 From: Eleazar Troncoso MD PCP: Dr. Sarah Winkler MD Status: PRE CLI Study: Upper Ext Joint Only(Routine) Date of Exam: 06/12/22 Exam# [id number] Ordering Dr: Emery Ramirez MD EXAM: MR LEFT UPPER EXTREMITY WITHOUT INTRAVENOUS CONTRAST, SHOULDER CLINICAL INDICATION: rule out rotator cuff tear-LEFT shoulder pain TECHNIQUE: Multiplanar and multisequence MR images of the left shoulder without intravenous contrast. This report was created using [employer] report generation technology. COMPARISON: April 29, 2022 FINDINGS: TENDONS: SUPRASPINATUS: Low to moderate grade articular sided tear involving the posterior fibers of supraspinatus tendon with tear specifically at the footprint of the tendon. INFRASPINATUS: Infraspinatus tendon is intact. SUBSCAPULARIS: Unremarkable. Intact. TERES MINOR: Unremarkable. Intact. BICEPS BRACHII, LONG HEAD: Unremarkable. The extra-articular biceps tendon is in the bicipital groove. The intra-articular biceps tendon is normal. LIGAMENTS: GLENOHUMERAL: Unremarkable. Intact. CORACOACROMIAL: Type II acromion with curved undersurface. No coracoacromial ligament thickening. No subacromial enthesophyte. No os acromiale. MUSCLES: Muscles are normal. No rotator cuff muscle atrophy. FLUID: Small amount of fluid in subacromial/subdeltoid bursa is nonspecific but can be seen with bursitis in the appropriate clinical setting. Tnwmg-wv-myszkumj suprapatellar joint effusion with synovitis at the axillary pouch. CARTILAGE: Unremarkable. Articular cartilage intact. GLENOID LABRUM: Unremarkable. No labral tear. BONES/JOINTS: Kldqssyb-oi-kqevbs hypertrophic degenerative changes of the acromioclavicular joint with moderate mass effect on the underlying soft tissues. [place]-Sachs deformity of the posterior superior humeral head is suspected with no bone marrow edema. Small cysts at the superior humeral head laterally. OTHER SOFT TISSUES: Unremarkable. No rotator interval edema. OTHER FINDINGS: In the appropriate clinical setting. MRI/Upper Ext Joint Only(Routine) IMPRESSION: 1. Low to moderate grade articular sided tear involving the posterior fibers of supraspinatus tendon with tear specifically at the footprint of the tendon. 2. Small amount of fluid in subacromial/subdeltoid bursa is nonspecific but can be seen with bursitis in the appropriate clinical setting. Electronically Signed: Eleazar Troncoso MD at 21:45 EDT , Coding Level of Care Code Off vis,est,level 3 Diagnoses Left rotator cuff tear M75.102 Assessment and Plan Assessment and Plan (1) Left rotator cuff tear: Status: Acute Plan: 72-year-old man with a left shoulder partial-thickness undersurface tear supraspinatus as well as bursitis. We have had extensive discussions in the past about the pros and cons risks and benefits of conservative management versus surgical intervention. We discussed the postop recovery 1 to 2 weeks in a sling after 3 to 6 months before going back to heavy overhead lifting. Surgical option would be left shoulder arthroscopy subacromial decompression rotator cuff repair. He wishes to proceed with surgery. 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 We will get preoperative clearance. He does have a diabetes which increases his risk of infection and overall surgical complications as well. Patient is aware of this. Pros and cons risks and benefits were discussed with the patient including but not limited to infection, pain, stiffness, bleeding, damage to surrounding structures, neurovascular injury, recurrence or retear, failure or wear of hardware or fixation, instability, fracture, deep vein thrombosis and pulmonary embolism, anesthetic risks, , patient dissatisfaction, need for further surgery and other risks. Patient understood and wished to proceed with surgery, and signed the informed consent documentation. [facility] Medical History (Updated 10/30/22 @ 14:01 by Carrie Kay) Alcohol use Anxiety Arthritis Back pain Cancer Cardiology follow-up encounter Chest pain Depression Diabetes Excessive bleeding Fatty liver Former smoker Gastric reflux High cholesterol History of diverticulitis History of echocardiogram History of irregular heartbeat History of stress test Hypertension Injury of head and neck Internal impingement of left shoulder Kidney stones Left rotator cuff tear Left shoulder pain Loss of consciousness Prostate cancer Home Medications metformin 500 mg tablet 500 mg PO BIDCM 04/23/16 [History Last Taken 04/23/16] omeprazole 20 mg capsule,delayed release 20 mg PO BID 04/23/16 [History Last Taken 11/13/22] atorvastatin 40 mg tablet 40 mg PO QHS 04/29/22 [History Last Taken Unknown] metoprolol succinate 50 mg tablet,extended release 24 hr 25 mg PO QHS 04/29/22 [History Last Taken Unknown] sacubitril 49 mg-valsartan 51 mg tablet (Entresto) 1 tab PO BID 04/29/22 [History Last Taken 11/13/22] venlafaxine 75 mg capsule,extended release 24 hr 75 mg PO QHS 04/29/22 [History Last Taken Unknown] magnesium 250 mg tablet 250 mg PO DAILY 10/17/22 [History Last Taken Unknown] aspirin 81 mg capsule 81 mg PO DAILY 10/30/22 [History Last Taken 11/12/22] cholecalciferol (vitamin D3) 25 mcg (1,000 unit) capsule (Vitamin D3) 25 mcg PO DAILY 10/30/22 [History Last Taken Unknown] Allergy/AdvReac Type Severity Reaction Status Date / Time lisinopril AdvReac cough Verified 11/13/22 09:03 Surgical History (Updated 10/30/22 @ 14:01 by Carrie Kay) History of cardiac catheterization Hx of colonoscopy Hx of prostatectomy Social History Smoking Status: Former smoker alcohol intake: current alcohol intake frequency: a few times a week Vital Signs Vital Signs Vital Signs: 11/13/22 09:05 11/13/22 09:05 Temperature 97.0 F L Temperature Source Temporal Pulse Rate 63 Respiratory Rate 18 Respiratory Pattern Normal Blood Pressure 159/77 H Blood Pressure Mean 104 Blood Pressure Source Monitor Blood Pressure Position Semi-Fowlers Blood Pressure Location Right Arm Pulse Ox 99 Oxygen Delivery Method Room Air Weight Weight: 213 lb 13.574 oz Body Mass Index (BMI) 33.5 Results Lab / Micro Data 10/31/22 09:16 10/31/22 09:16 Labs: Laboratory Results - last 24 hr 11/13/22 09:11: POC Glucose 118 H
[2022-11-13] MEDS: Cefazolin 2 GM in 0.9% Normal Saline (100mL Bag) 100 ML IV (11:15)
[2022-11-13] MEDS: Epinephrine (1 mg/ml) 1 MG/ML VIAL (11:50)
--- NOTE | 2022-11-13 12:46 | PCM.OPRPT ---
Problems Associated Problem List Diagnoses (1) Left rotator cuff tear: (2) Left shoulder pain: Report of Operation Date of Procedure: 11/13/22 Pre-Operative Diagnosis: left shoulder impingement and rotator cuff repair Post-Operative Diagnosis: same Surgery/Procedure Performed:: left shoulder arthroscopy, subacromial decompression, rotator cuff repair Surgeon: Emery Ramirez Type of Anesthesia: Block,Regional and General Anesthesiologist: Esequiel Martinez Estimated Blood Loss (mL): 30 Description of Procedure: Patient brought to the operating room theater. Placed supine on the table. General anesthesia induced. 2 g IV Ancef given prior to the start of the procedure. Patient transferred to left side up lateral decubitus with the beanbag positioner. Axillary roll placed all bony prominences padded. SCDs on the legs. Upper extremity prepped and draped in the usual sterile fashion with chlorhexidine-based prep solution allowing over 3 minutes drying time prior to draping. 10 pounds in line traction with the arm in 45 degrees of abduction was used. Preoperative timeout performed to confirm the site patient and the surgery. Began by making a posterior arthroscopy portal inserted the arthroscope into the intra-articular portion of the shoulder. Did a diagnostic arthroscopy. Cartilage on the humeral head grade 2 changes cartilage on the glenoid grade 1 changes. No obvious full-thickness defects. Mild fraying of the anterior labrum. Created an anterior portal through the rotator interval just posterior to the biceps tendon using inside-out spinal needle localization. Gently debrided the fraying of the anterior labrum. Biceps root was stable. Mild synovitis of the biceps. Subscapularis upper border very minor fraying but no obvious discrete tears normal lever push. Infraspinatus and posterior rotator cuff muscles were normal. Normal subscapular recess no loose bodies. Minor undersurface 50% fraying of the undersurface the rotator cuff supraspinatus in the mid aspect there. Aligned with MRI findings. Made note of that. Eventually did juan j this with a spinal needle. Then placed the arthroscope into the subacromial space. Made a lateral portal inside out spinal needle localized. Did a bursectomy for a mild to moderate amount of noninflammatory bursitis. Identified the undersurface of the acromion. Released the CA ligament and did subacromial decompression for flat margins by about 4 mm. Identified the area of the tear. This was partial-thickness tearing therefore decided to do a trans tendon 'pasta' repair. Used arthrex 7x7mm cannulas one just anterior and one just posterior to the tear. Used the Arthrex power pick around the area of healing and tearing as well as just lateral to this. Did a number of different trephination's to stimulate healing there. I then used 2 Arthrex self punching 2.6 mm knotless fiber tack anchors. Inserted 1 just anterior to the tear and one just posterior to the tear at the footprint. I used gentle 3-second pulling back to set the anchor. Then I passed the repair stitch from 1 anchor through the looped suture from the other anchor and delivered the repair stitch through this to create a knotless repair. I repeated the process with the other suture. I then brought the sutures out laterally and inserted these into a 4.75 mm Arthrex swivel lock anchor biocomposite. This created good compression at the tear, and a triangular suture configuration. Arthroscopic pictures were taken and saved throughout the case. Wounds thoroughly irrigated and shoulder irrigated. Case terminated. Portal sites closed with 3-0 Monocryl suture. Skin cleaned with wet and dry dressing followed application of Adaptic 4 x 4 gauze ABD dressing and cloth tape with a sling with an abduction pillow for the upper extremity. Patient woken up from the general anesthetic transferred off the operating table and taken to postanesthetic care unit in stable condition. All sponge needle instrument counts were correct no complications. CPT 37453 and 51395 Complications none Admit VTE Documentation VTE Present on Admission: No VTE Mechan Device Prophylaxis: SCD's VTE Pharm Prophylaxis ordered?: No Reason prophylaxis not ordered:: Treatment Not Indicated Procedures Musculoskeletal 20xxx-29xxx: Other Procedure See Report
--- NOTE | 2022-11-13 12:58 | DCINST_ITS ---
Discharge Instructions Diet Discharge Diet: No restrictions Activity Lifting Restrictions: no lifting Additional Activity Instructions:: pendulums ok, hand wrist elbow rom ok, four times a day Dressing / Incision Call your doctor if your incision/area has: Continuous Slow Oozing, Sudden Increased Bleeding, Increased Pain/ Swelling, Increased Redness, Foul Smelling Discharge and Swelling at the incision site Change Dressing in: leave in place till F/U Cleanse incision/area with: Do not get Incision Wet Follow Up Care Please Follow Up With: Emery Ramirez MD When: 2 days Test Results: Test results from this visit will be discussed in further detail at your follow- up appointment, if applicable. Discharge Plan Admission Attending Provider: Emery Ramirez Primary Care Provider: Sarah Winkler Consulting Providers: Prashanth Mullen Discharge Orders/Prescriptions Prescriptions: New oxycodone-acetaminophen [Endocet] 5-325 mg tablet 1 tab PO Q4H MDD 6 PRN (Reason: pain) 5 Days Qty: 30 0RF No Action atorvastatin 40 mg tablet 40 mg PO QHS Patient Comments: TAKE 1 TABLET BY MOUTH EVERY DAY FOR 90 DAYS venlafaxine 75 mg capsule,extended release 24hr 75 mg PO QHS Entresto 49-51 mg tablet 1 tab PO BID Patient Comments: TAKE 1 TABLET BY MOUTH TWICE DAILY FOR 90 DAYS metoprolol succinate 50 mg tablet extended release 24 hr 25 mg PO QHS Patient Comments: TAKE 1 TABLET BY MOUTH EVERY DAY magnesium 250 mg tablet 250 mg PO DAILY metformin 500 MG tablet 500 mg PO BIDCM Patient Comments: DIABETES omeprazole 20 MG capsule 20 mg PO BID Patient Comments: REFLUX aspirin 81 mg capsule 81 mg PO DAILY cholecalciferol (vitamin D3) [Vitamin D3] 25 mcg (1,000 unit) capsule 25 mcg PO DAILY Referrals / Follow Up: Sarah Winkler MD [Primary Care Provider] - Emery Ramirez MD [Med Staff - Active Staff] - Disposition Disposition (needs filled in before D/C Order can be placed): Home, Self Care
[2022-11-13] MEDS: Oxycodone/Apap 5/325 Tablet PO (15:12)
== END 2022-11-13 16:04 | disposition home or self-care (01) ==
LOC: SDC 08:38 → AC 08:39
PROVIDERS: Anesthesiology; PCP Internal Medicine; Referring Provider Orthopaedic Surgery Sports Medicine; Visit Provider Orthopaedic Surgery Sports Medicine
PROC: (CPT 29805; principal; 2022-11-13 10:25)
DX: M75.102 Unspecified rotator cuff tear or rupture of left shoulder, not specified as traumatic (principal); E11.9 Type 2 diabetes mellitus without complications; M25.812 Other specified joint disorders, left shoulder; E78.00 Pure hypercholesterolemia, unspecified; I10 Essential (primary) hypertension; Z79.82 Long term (current) use of aspirin; Z79.84 Long term (current) use of oral hypoglycemic drugs; Z79.899 Other long term (current) drug therapy; Z87.891 Personal history of nicotine dependence
CPT/HCPCS: 29827; 29826; 64415; 01630; 36415; 80048; 80076; 82962; 83036; 85027; 85610; 85730; 93005; J7120

== ENCOUNTER 2023-01-01 10:00 | Outpatient (RCR) | payer MEDICARE, SELFPAY ==
--- NOTE | 2022-11-26 09:59 | HP.PTEVAL_ITS ---
Patient's Visit Information Visit Information Visit Information: DESTINEY OCAMPO is a 72 year old M referred to Physical Therapy by Dr. Emery Ramirez MD with a diagnosis of S/P L RC repair and sub acrom decompression 11/13/22. Date of Evaluation: 11/26/22 Physical Therapist: SHAN Gamez Visit Plan Frequency: 2-3x /Week Duration: 3 Months Subjective Subjective: Pt had shoulder surgery couple of weeks ago and they repaired his RC and took some stuff out of there and some anchors in his bone. His surgery was 2 week tomm. He is not in a sling. He reports that his shoulder is very tender and kept him up aching this morning. Not sleeping very good. He is sleeping in bed until it aches and then sleeps in the recliner. Pt reports that he has been using his L arm some as he was not told not too. He has not been using his sling either. Pain L shoulder pain: Pain Intensity (Out of 10): 7 Objective Objective: R handed L shoulder PROM: flexion approx 120, ER approx 30 degrees Pendulums...had pt demonstrate and had him not use his muscles as much and more momentum Balance/Special Test Scores Quick DASH Score: 56.8175 Goals Goal 1:: I HEP Goal Time Frame: 6-8 Weeks Goal 2:: Increase L shoulder AROM to 160 degrees elevation and full IR/ER Goal Time Frame: 4-6 Weeks Goal 3:: Decrease L shoulder pain to 1/10 with ADL's Goal Time Frame: 4-6 Weeks Goal 4:: Set strength goal when able to do strengthening Rehabilitation Potential Rehabilitation Potential: Good Anticipated Interventions Patient/Client Instruction: Educate patient on: Condition and Plan of Care For the Purpose of:: To decrease pain, To increase ROM, To improve nutrient delivery to tissue, To improve muscle performance and motor function, To improve ability to perform ADL's, To increase tolerance to activity/condition/position, To improve performance and independence with ADL's, To improve ability of phy sical actions for home/community/work/leisure, To improve health of tissue, To decrease soft tissue restriction and To increase flexibility/ROM Therapeutic Exercise to Include: Strength training, Postural training, Flexibilty training, Passive ROM, Active ROM and Scapular Strength/Stabilization For the Purpose of:: To decrease pain, To increase ROM, To improve nutrient delivery to tissue, To improve muscle performance and motor function, To improve ability to perform ADL's, To increase tolerance to activity/condition/position, To improve performance and independence with ADL's, To improve health of tissue, To decrease soft tissue restriction and To increase flexibility/ROM Manual Therapy Techniques to Include: Passive ROM For the Purpose of:: To increase ROM IF ES: Yes Cryotherapy (ice pack, ice massage): Yes Thermo therapy (hot pack): Yes For the Purpose of:: To decrease pain, To decrease swelling/inflammation, To increase ROM, To improve nutrient delivery to tissue, To improve muscle perform ance and motor function and To improve ability to perform ADL's Text: Thank you for the opportunity to evaluate your patient. For Medicare and Medicare HMO plans, please review the plan of care and approve it. It will need to be FAXED BACK to us at [phone] for Medicare purposes. For Medicare only, by signing this I certify the plan of care. Please let me know if there are questions or concerns regarding this plan of care. Physician Signature: Date:
--- NOTE | 2022-11-28 11:54 | HP.PTEVAL_ITS ---
Patient's Visit Information Visit Information Visit Information: DESTINEY OCAMPO is a 72 year old M referred to Physical Therapy by Dr. Emery Ramirez MD with a diagnosis of S/P L RC repair and sub acrom decompression 11/13/22. Date of Evaluation: 11/26/22 Physical Therapist: SHAN Gamez Visit Plan Frequency: 2-3x /Week Duration: 3 Months Plan: 2-3X/ week for 12 weeks for PROM only until week 4 (12-11-22) then may begin AAROM and progress to AROM. May begin strengthening at week 6 with HEP per clinical note. Subjective Subjective: Pt had shoulder surgery couple of weeks ago and they repaired his RC and took some stuff out of there and some anchors in his bone. His surgery was 2 week tomm. He is not in a sling. He reports that his shoulder is very tender and kept him up aching this morning. Not sleeping very good. He is sleeping in bed until it aches and then sleeps in the recliner. Pt reports that he has been using his L arm some as he was not told not too. He has not been using his sling either. Pain L shoulder pain: Pain Intensity (Out of 10): 7 Objective Objective: R handed L shoulder PROM: flexion approx 120, ER approx 30 degrees Pendulums...had pt demonstrate and had him not use his muscles as much and more momentum Balance/Special Test Scores Quick DASH Score: 56.8175 Goals Goal 1:: I HEP Goal Time Frame: 6-8 Weeks Goal 2:: Increase L shoulder AROM to 160 degrees elevation and full IR/ER Goal Time Frame: 4-6 Weeks Goal 3:: Decrease L shoulder pain to 1/10 with ADL's Goal Time Frame: 4-6 Weeks Goal 4:: Set strength goal when able to do strengthening Goal Time Frame: 8-12 Weeks Rehabilitation Potential Rehabilitation Potential: Good Anticipated Interventions Patient/Client Instruction: Educate patient on: Condition and Plan of Care For the Purpose of:: To decrease pain, To increase ROM, To improve nutrient delivery to tissue, To improve muscle performance and motor function, To improve ability to perform ADL's, To increase tolerance to activity/condition/position, To improve performance and independence with ADL's, To improve ability of physical actions for home/community/work/leisure, To improve health of tissue, To decrease soft tissue restriction and To increase flexibility/ROM Therapeutic Exercise to Include: Strength training, Postural training, Flexibilty training, Passive ROM, Active ROM and Scapular Strength/Stabilization For the Purpose of:: To decrease pain, To increase ROM, To improve nutrient delivery to tissue, To improve muscle performance and motor function, To improve ability to perform ADL's, To increase tolerance to activity/condition/position, To improve performance and independence with ADL's, To improve health of tissue, To decrease soft tissue restriction and To increase flexibility/ROM Manual Therapy Techniques to Include: Passive ROM For the Purpose of:: To increase ROM IF ES: Yes Cryotherapy (ice pack, ice massage): Yes Thermo therapy (hot pack): Yes For the Purpose of:: To decrease pain, To decrease swelling/inflammation, To increase ROM, To improve nutrient delivery to tissue, To improve muscle performance and motor function and To improve ability to perform ADL's Text: Thank you for the opportunity to evaluate your patient. For Medicare and Medicare HMO plans, please review the plan of care and approve it. It will need to be FAXED BACK to us at [phone] for Medicare purposes. For Medicare only, by signing this I certify the plan of care. Please let me know if there are questions or concerns regarding this plan of care. Physician Signature: Date:
--- NOTE | 2023-01-01 10:23 | HP.PTDCSUM ---
Discharge Summary D/C summary: It has been my pleasure to treat DESTINEY OCAMPO referred by Dr. Emery Ramirez MD, with the diagnosis of S/P L RC repair and sub acrom decompression 11/13/22 for a total of 8 visit(s). Discharge Date: 01/01/23 Please see the following information for a summary of their discharge status. Subjective Subjective: Pt saw Dr and he said that he looked good. He gave him a cortizone shot a few weeks ago and he is using his arm some. He has no pain. Dr said that he could do his own PT at home. He feels comfortable with that. Pt reports that Pain L shoulder pain: Pain Intensity (Out of 10): 5 Overall Improvement % Improvement: 60 Objective Objective/Function: L shoulder AROM: Flexion 155 ABD 160 ER 37 IR T12 Goals Goal 1:: I HEP Goal Progress: Goal Met Goal 2:: Increase L shoulder AROM to 160 degrees elevation and full IR/ER Goal Progress: Progressing Goal 3:: Decrease L shoulder pain to 1/10 with ADL's Goal Progress: Progressing Goal 4:: Set strength goal when able to do strengthening Plan Plan: DC PT to HEP per pt stating Dr said to continue on his own and just move his arm. D/C Information Discharge Comments: DC PT to HEP per pt request d/c sentence: If there are questions or concerns regarding this patient's physical therapy, please feel free to call me at [phone]. Thank you for the referral of this patient. Sincerely, Rosana Osorio, MPT Balance/Gait/Functional tests Balance/Special Test Scores Quick DASH Score: 9.0900 Improvement % Improvement: 60
== END 2023-01-01 10:37 | disposition home or self-care (01) ==
LOC: PT 10:00
PROVIDERS: PCP Internal Medicine; Visit Provider Orthopaedic Surgery Sports Medicine
DX: M75.102 Unspecified rotator cuff tear or rupture of left shoulder, not specified as traumatic (principal)
CPT/HCPCS: 97110; 97140; 97161; 97530

== ENCOUNTER → 2023-02-27 | Outpatient (CLI) | payer MEDICARE, SELFPAY ==
--- NOTE | 2023-02-27 12:29 | MRI_ITS ---
STUDY: MRI LEFT SHOULDER REASON FOR EXAM: Male, 73 years old. Post op pain after trans tendon cuff repair. TECHNIQUE: Standardized fat and water weighted pulse sequences were obtained in all 3 orthogonal planes. COMPARISON: Left shoulder MRI dated 06/12/2022. FINDINGS: There are new postoperative changes related to rotator cuff repair surgery, with new anchors in the humeral head. There is mild supraspinatus tendinosis without a full-thickness tear. Normal infraspinatus tendon. Normal subscapularis tendon. Normal teres minor tendon. Normal supraspinatus muscle. Normal infraspinatus muscle. Normal subscapularis muscle. Normal teres minor muscle. Normal glenohumeral articulation. Normal humeral head and visualized proximal humerus. Normal biceps labral complex. Normal intracapsular long biceps tendon. Normal labrum. Normal capsulo-ligamentous complex. Normal rotator interval. There is hypertrophic acromioclavicular arthrosis, with inferior osteophyte formation, with mild effacement of the supraspinatus myotendinous junction (coronal PD series 4 image 8). There is a Type II morphology (curved), with a neutral orientation. There is a small amount of subacromial-subdeltoid bursal fluid. Normal visualized coracohumeral and coracoacromial ligaments. Normal quadrilateral space. Normal axillary space. Normal deltoid muscle. Normal trapezius muscle. MRI/Upper Ext Joint Only(Routine) IMPRESSION: Mild supraspinatus tendinosis without a full-thickness rotator cuff tear. Hypertrophic acromioclavicular arthrosis, with inferior osteophyte formation, with mild effacement of the supraspinatus myotendinous junction. Mild subacromial-subdeltoid bursitis. Electronically Signed: Martín Coombs MD at 16:12 EST ,
== END | disposition home or self-care (01) ==
LOC: MRI 12:20
PROVIDERS: PCP Internal Medicine; Referring Provider Orthopaedic Surgery Sports Medicine; Visit Provider Orthopaedic Surgery Sports Medicine
DX: M75.102 Unspecified rotator cuff tear or rupture of left shoulder, not specified as traumatic (principal)
CPT/HCPCS: 73221

== ENCOUNTER → 2023-10-15 | Outpatient (CLI) | payer MEDICARE, SELFPAY ==
[2023-10-15 10:33] LABS: PSA,Total- Diagnostic 0.05 ng/mL (0.0-4.0)
== END | disposition home or self-care (01) ==
LOC: LAB 09:16
PROVIDERS: PCP Internal Medicine; Referring Provider Urology; Visit Provider Urology
DX: C61 Malignant neoplasm of prostate (principal)
CPT/HCPCS: 36415; 84153

== ENCOUNTER → 2024-04-28 | Outpatient (CLI) | payer MEDICARE, SELFPAY ==
[2024-04-28 12:58] LABS: PSA,Total- Diagnostic 0.04 ng/mL (0.00-4.00)
== END | disposition home or self-care (01) ==
LOC: LAB 11:44
PROVIDERS: PCP Internal Medicine; Referring Provider Nurse Practitioner; Visit Provider Nurse Practitioner
DX: C61 Malignant neoplasm of prostate (principal)
CPT/HCPCS: 36415; 84153

== ENCOUNTER 2024-08-05 06:39 | Day surgery (SDC) | payer MEDICARE, SELFPAY ==
--- NOTE | 2024-08-04 16:44 | PAT.ANESEVAL ---
Pre-Assessment Diagnosis/Proposed Procedure Planned Operative Procedure(s): EGD, COLONOSCOPY Anesthesia History Anesthesia History - resume writer: Anesthesia History - resume writer Hx Hospitalization Yes: HIP SURGERY 08/04/24 09:21 Any Problems With Anesthesia No 08/04/24 09:21 Cholinesterase deficiency No 08/04/24 09:21 You/Your Family Experience No 08/04/24 09:21 fever (hyperthermia) with Relationship Recent Exposure to Contagious No 11/13/22 09:05 Disease Does patient have nerve No 08/04/24 09:21 stimulator Patient instructed to have device shut off --Does patient have Pacemaker or ICD? When Was Last Pacemaker Check QUESTION #4 FULL TEXT: You/Your Family Experience fever (hyperthermia) with Anesthesia Last Oral Intake Last Oral intake: Last Oral Intake NPO since Meds taken in AM with sips of water? Meds patient instructed to take am of surgery PONV PONV - resume writer: PONV - resume writer Female No 08/04/24 09:21 HX of Motion Sickness No 08/04/24 09:21 HX of N/V After Surgery No 08/04/24 09:21 Non-Smoker Yes 08/04/24 09:21 Duration of Surgery greater No 08/04/24 09:21 than 60 minutes Number of Risk Factors 1 08/04/24 09:21 PONV Score Low Risk 08/04/24 09:21 Height & Weight Height & Weight: Anesthesia: Height & Weight Height 5 ft 7 in 11/10/23 08:27 Respiratory Assessment Respiratory Assessment - resume writer: Respiratory Tract Infection Hx - resume writer Hx Respiratory Tract Infection No 08/04/24 09:21 STOP Sleep Apnea STOP Sleep Apnea - resume writer: STOP Sleep Apnea - resume writer Hx Hypertension Yes 08/04/24 09:21 Hx Sleep Apnea Yes 08/04/24 09:21 CPAP Yes: TRIED FOR A COUPLE YRS 08/04/24 09:21 AND DIDN'T MAKE A DIFFERENCE BIPAP No 08/04/24 09:21 Do you snore loudly (louder No 08/04/24 09:21 than talking or can be heard Do you often feel tired/ No 08/04/24 09:21 fatigued/ sleepy during daytime? Has anyone observed you stop No 08/04/24 09:21 breathing during sleep? STOP Results Positive 08/04/24 09:21 QUESTION #5 FULL TEXT : Do you snore loudly (louder than talking or can be heard through closed doors)? 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 Specify any problems Hx of Preganancy in last 3 N/A 08/04/24 09:21 Months Nurse Filling Out Transfusion [facility] 08/04/24 09:21 & Questions: Date: 08/04/24 08/04/24 09:21 Time: 09:33 08/04/24 09:21 Patient unable to answer at this time (ie. confused, unrespo /Reproduction History /Reproductive History - resume writer: /Reproductive Hx- resume writer Hx Now Gestational Age (in weeks): EDC: Hx Hx Para Hx [facility] Medical History (Updated 08/04/24 @ 09:32 by Carolyn Aponte) Heartburn History of atrial fibrillation Cancer Depression Anxiety Alcohol use Diabetes Arthritis Kidney stones Fatty liver High cholesterol Excessive bleeding Back pain Injury of head and neck Loss of consciousness History of diverticulitis Gastric reflux Former smoker History of echocardiogram History of stress test Hypertension Cardiology follow-up encounter History of irregular heartbeat Left rotator cuff tear Internal impingement of left shoulder Prostate cancer Left shoulder pain Home Medications ?Medication ?Instructions ?Recorded ?Last Taken ?Type atorvastatin 40 mg tablet 40 mg PO QHS 04/29/22 Unknown History metoprolol succinate 50 mg 25 mg PO QHS 04/29/22 Unknown History tablet,extended release 24 hr sacubitril 49 mg-valsartan 51 mg 1 tab PO BID 04/29/22 11/13/22 History tablet (Entresto) magnesium 250 mg tablet 250 mg PO BID 10/17/22 Unknown History aspirin 81 mg capsule 81 mg PO DAILY 10/30/22 08/01/24 History cholecalciferol (vitamin D3) 25 50 mcg PO DAILY 10/30/22 Unknown History mcg (1,000 unit) capsule (Vitamin D3) famotidine 20 mg tablet (Pepcid) 20 mg PO QHS 05/24/24 Unknown History metformin 500 mg tablet 500 mg PO BID 05/24/24 Unknown History pantoprazole 40 mg tablet,delayed 40 mg PO BID #60 tabs 05/24/24 Unknown Rx release venlafaxine 37.5 mg 75 mg PO QHS 05/24/24 Unknown History capsule,extended release 24 hr Allergy/AdvReac Type Severity Reaction Status Date / Time lisinopril AdvReac cough Verified 08/04/24 09:13 Surgical History (Updated 08/04/24 @ 10:26 by Carolyn Aponte) History of right hip replacement History of shoulder surgery History of cardiac catheterization Hx of colonoscopy Hx of prostatectomy Social History (Updated 11/10/23 @ 09:27 by Bren Jimenez) Smoking Status: Former smoker alcohol intake: current alcohol intake frequency: a few times a week substance use type: does not use what type of physical activity do you participate in: none Audit: Pertinent Findings Pertinent Findings EKG Perinent findings: October 31, 2022. Normal sinus rhythm. Inferior infarct, age undetermined. Compared to EKG of December 30, 2020 the inferior infarct is not present. (See echo below) Echo (EF%) pertinent findings: July 22, 2024. EF 55 to 60%. RVSP is 26 mmHg. No aortic stenosis. Heart catheterization pertinent findings: March 01, 2021. Proximal LAD 40% stenosis. Right posterior descending ostial lesion of 60% stenosis. Recommend aggressive medical therapy. Consult pertinent findings: July 02, 2024. 1. Coronary artery disease in unga artery-mild to moderate CAD on heart cath in 2021. Currently denies an angina. 2. Cardiomyopathy-EF is improved to 45 to 50% after Entresto. However worsening dyspnea over the last few months. Will repeat echo. (See above) 3. Dyspnea?chronic?see echo (see above) Additional pertinent findings: Holter monitor. September 16, 2023. Predominant rhythm is sinus. No evidence of atrial fibrillation or flutter. No evidence of atrial tachycardia. PAC burden is less than 1%. PVC burden is less than 1%. No reported symptoms. Recommendation Anesthesia Recommendation Anesthesia recommendation: OPTIMIZED for anesthesia
[2024-08-05] VITALS (7 sets, daily range): BP systolic 96–132; BP diastolic 64–82; PULSE 63–78; RESP 16; TEMP 36.1–36.8; O2SAT 95–100; BMI 33.7
--- OUTSIDE RECORDS SUMMARY | 2024-08-05 06:44 | XMS RPT_ITS | CCD ---
Author Organization [facility] Care Team Providers Care Lead Javascript Developer Name Role Phone EARLENE LEE, DR ETHAN Bush Primary Care Physician Ethan Montero MD Primary Care Provider Keren Arce MD Primary Care Provider YAZMIN LEE, DR VELIZ Primary Care Physician Keren Arce MD Primary Care Provider Dr. Keren Arce Primary Care Provider Dr. Keren Arce Referring Provider MD Emery Ramirez Attending Provider Dr. Keren Arce Primary Care Provider Dr. Keren Arce Referring Provider MD Emery Ramirez Attending Provider MD Emery Ramirez Referring Provider MD Emery Ramirez Other Provider Dr. Prashanth Mullen Other Provider Keren Arce MD Primary Care Provider ASHTYN TAVAREZ Attending Franchesca ARCE MD, DR VELIZ Primary Care Unavailable LUZ SPENCER MD Attending Virginia ARCE MD, DR VELIZ Primary Care Unavailable ASHTYN TAVAREZ Attending Unavail jeyson ARCE MD, DR VELIZ Primary Care Unavailable ROMEO LEE, DR BERNY Arechiga Attending Rebecca ARCE MD, DR VELIZ Primary Care Unavailable EDITH VINCENT Attending Virginia ARCE MD, DR VELIZ Primary Care Unavailable Ethan Montero MD Primary Care Provider Sissen PSS, Melquiades Unavailable Unavailable Grimes INTEGRATION MANAGER.ELECTRIC LOCOMOTIVE CRANE OPERATOR, Rashid Unavailable Radha INTEGRATION MANAGER.LEISURE TRAVEL AGENT, Lon Unavailable Sissen PSS, Melquiades Unavailable Unavailable Dominique PT, Gwen Unavailable Radha INTEGRATION MANAGER.LEISURE TRAVEL AGENT, Lon Bekah Unavailable Radha INTEGRATION MANAGER.LEISURE TRAVEL AGENT, Lon Unavailable PROVIDER, UNKNOWN Referring Unavailable TALAMPAS, KEREN D Primary Care Unavailable TALAMPAS, KEREN D Primary Care Unavailable NAKUL MADDOX Admitting Unavail able NAKUL MADDOX Attending Unavail able TALAMPAS, KEREN D Primary Care Unavailable ANTOINE LOU Consulting Unavailable Radha INTEGRATION MANAGER.LEISURE TRAVEL AGENT, Lon Unavailable RASHID GRIMES Attending Unavailable TALAMPAS, KEREN D Primary Care Unavailable RASHID GRIMES Referring Unavailable TALAMPAS, KEREN D Primary Care Unavailable TALAMPAS, KEREN D Primary Care Unavailable LON GARCIA Referring Unavailable TALAMPAS, KEREN D Primary Care Unavailable NAKUL MADDOX Referring Unavail able TALAMPAS, KEREN D Primary Care Unavailable GEOVANNA HOFFMAN Attending Unavailable RADHALON Referring Unavailable TALAMPAS, KEREN D Primary Care Unavailable GEOVANNA HOFFMAN Attending Unavailable LON GARCIA Referring Unavailable TALAMPAS, KEREN D Primary Care Unavailable BREONNA POLK Attending Unavailable TALAMPAS, KEREN D Primary Care Unavailable GEOVANNA HOFFMAN Referring Unavailable TALAMPAS, KEREN D Primary Care Unavailable NAKUL MADDOX Referring Unavail able TALAMPAS, KEREN D Primary Care Unavailable NAKUL MADDOX Referring Unavail able TALAMPAS, KEREN D Primary Care Unavailable NAKUL MADDOX Attending Unavail able TALAMPAS, KEREN D Primary Care Unavailable GEOVANNA HOFFMNA Referring Unavailable TALAMPAS, KEREN D Primary Care Unavailable NAKUL MADDOX Attending Unavail able TALAMPAS, KEREN D Primary Care Unavailable RADHALON Attending Unavailable TALAMPAS, KEREN D Primary Care Unavailable TALAMPAS, KEREN D Referring Unavailable TALAMPAS, KEREN D Primary Care Unavailable Talampas, Keren D Primary Care Unavailable Fuentes Youssef Attending Unavailable Fuentes Youssef Referring Unavailable Talampas, Keren D Referring Unavailable Kera Orr Attending Unavailable Talampas, Keren D Primary Care Unavailable Talampas, Keren D Primary Care Unavailable RoanokeJosselin Attending Unavailable [place], Josselin Referring Unavailable Manuel Rashad Attending Unavailable Talampas, Keren D Primary Care Unavailable Talampas, Keren D Primary Care Unavailable Yadi Stafford Attending Unavailable Talampas, Keren D Primary Care Unavailable GEOVANNA HOFFMAN Attending Unavailable GEOVANNA HOFFMAN Referring Unavailable YAZMIN LEE, DR VELIZ Primary Care Unavailable ROMEO LEE, DR BERNY Arechiga Attending [facility] Allergies Allergy Classification Reported Allergen(s) Allergy Type Date of Onset Reaction(s) Facility (20 sources) Lisinopril; Translations: [lisinopril] Drug Allergy 3 Cough (finding), Cough [facility] (1 source) Lisinopril Drug Allergy 5 [facility] Repository Medications Current Medications Medication Drug Class(es) Dates Sig (Normalized) Sig (Original) acetaminophen 500 mg oral tablet (20 sources) Start: 04-09-2024 take 2 tablets by mouth every eight hours as needed acetaminophen (TYLENOL) 500 mg tablet Take 2 tablets by mouth every 8 hours as needed for pain. 90 tablet 04/09/2024 3:35 PM EST 04/09/2024 Active amoxicillin 500 mg oral capsule (1 source) Penicillin-class Antibacterial Start: 06-30-2024 amoxicillin (AMOXIL) 500 mg capsule Take 2 capsules three times a day, starting one day prior dental appointments/proce dures and on the day of the dental procedure (two days for 6 doses total) 12 capsule 3 06/30/2024 Active Start: 06-30-2024 amoxicillin (A MOXIL) 500 mg capsule Take 2 capsules three times a day, starting one day prior dental appointments/procedures and on the day of the dental procedure (two days for 6 doses total) 12 capsule 3 06/30/2024 Active amoxicillin 875 mg / clavulanate 125 mg oral tablet (2 sources) Penicillin-class Antibacterial Start: 03-30-2023 End: 04-06-2023 take 1 tablet by mouth twice daily amoxicillin-clavulanate potassium (AUGMENTIN) 875-125 mg per tablet Take 1 tablet by mouth two times a day for 7 days. 14 tablet 0 03/30/2023 04/06/2023 Active Comment on above: Take 1 tablet by mouth two times a day f or 7 days. ascorbic acid 500 mg oral tablet (20 sources) Vitamin C Start: 04-09-2024 End: 04-23-2024 take 1 tablet by mouth twice daily at mealtime ascorbic acid, vitamin C, (VITAMIN C) 500 mg tablet Take 1 tablet by mouth two times a day with meals for 27 doses. 27 tablet 04/09/2024 3:35 PM EST 04/09/2024 Active aspirin 81 mg delayed release oral tablet (20 sources) Platelet Aggregation Inhibitor, Nonsteroidal Anti-inflammatory Drug Start: 04-09-2024 End: 05-07-2024 take 1 tablet by mouth twice daily in the evening aspirin, enteric coated (ASPIRIN, ENTERIC COATED) 81 mg EC tablet Take 1 tablet by mouth two times a day for 28 days. 56 tablet 04/09/2024 3:35 PM EST 04/09/2024 Active Start: 10-30-2022 take 81 mg by mouth once daily Aspirin Active 81 MG PO DAILY October 29, 2022 11:00pm Start: 02-12-2021 End: 11-09-2021 aspirin 81 mg oral tablet, c hewable Dose : 81 mg = 1 tab(s), Oral, Daily, # 90 tab(s), 2 Refill(s), Pharmacy: [facility], 170.2, cm, 01/23/21 10:52:00 EST, Height, kg, 01/23/21 10:52:00 EST, Dosing Weight Start Date: 02/12/21 Stop Date: 11/09/21 Status: Ordered Start: 02-12-2021 End: 11-09-2021 aspirin 81 mg oral tablet, c hewable Dose : 81 mg = 1 tab(s), Oral, Daily, # 90 tab(s), 2 Refill(s), Pharmacy: [facility], 170.2, cm, 01/23/21 10:52:00 EST, Height, kg, 01/23/21 10:52:00 EST, Dosing Weight Start Date: 02/12/21 Stop Date: 11/09/21 Status: Ordered Quantity: 90.0 Unit: tab(s) Repeat number: 3 Comment on above: Take 81 mg by mouth. atorvastatin 40 mg oral tablet (20 sources) HMG-CoA Reductase Inhibitor Start: 2 End: 5 take 1 tablet by mouth once daily atorvastatin 40 mg oral tablet 1 tab(s), Oral, qDay, # 90 tab(s), 0 Refill(s), Pharmacy: [facility], 170, cm, 12/19/23 10:06:00 EDT, Height, kg, 12/19/23 10:06:00 EDT, Dosing Weight Start Date: 05/13/24 Status: Ordered Quantity: 90.0 Unit: tab(s) Repeat number: 1 Start: 03-01-2021 atorvastatin 4 0 mg oral tablet Dose : 40 mg = 1 tab(s), Oral, qDay, # 30 tab(s), 7 Refill(s), Pharmacy: [facility], 170.2, cm, 03/01/21 6:19:00 EST, Height, kg, 03/01/21 6:19:00 EST, Dosing Weight Start Date: 03/01/21 Status: Ordered Comment on above: TAKE 1 TABLET BY MARYCARMEN TH EVERY DAY FOR 90 DAYS Blood-Glucose Meter monitoring kit (20 sources) Start: 016 Blood-Glucose Meter monitoring kit Glucose Meter of Choice (per insurance coverage)- Kit - Dx: Type 2 DM - Controlled E11.9, Test 1-2 times a day or as directed. No insulin 1 Each 0 10/05/2015 Active Comment on above: Glucose Meter of Cho ice (per insurance coverage)- Kit - Dx: Type 2 DM - Controlled E11.9, Test 1-2 times a day or as directed. No insulin cefadroxil 500 mg oral capsule (15 sources) Cephalosporin Antibacterial Start: 025 End: 025 take 1 capsule by mouth every twelve hours in the evening cefADROxil (DURICEF) 500 mg capsule Take 1 capsule by mouth every 12 hours for 14 days. 28 capsule 04/09/2024 3:35 PM EST 04/09/2024 04/23/2024 Active cholecalciferol 0.025 mg oral capsule (20 sources) Vitamin D Start: 023 take 1 capsule by mouth once daily Cholecalciferol (Vitamin D3) (Vitamin D3) 25 mcg (1,000 unit) capsule Active 25 MCG PO DAILY October 29, 2022 11:00pm Start: 04-01-2022 take 1 capsule by mo uth once daily Cholecalciferol, Vitamin D3, 50 mcg (2,000 unit) cap Take 1 capsule by mouth once daily. 04/01/2022 Active Comment on above: Take 1 capsule by mo uth once daily. cyanocobalamin, vitamin B-12, (VITAMIN B-12 ORAL) (20 sources) Start: 01-30-2024 take 1 tablet by mouth once daily cyanocobalamin, vitamin B-12, (VITAMIN B-12 ORAL) Take 1 tablet by mouth once daily. 01/30/2024 Active cyanocobalamin, vitamin B-12, (VITAMIN B-12 ORAL) Take by mouth. Active 24 hr dilTIAZem hydrochloride 120 mg extended release oral tablet (2 sources) Calcium Channel Gino Start: 01-23-2021 End: 02-22-2021 Cardizem CD 120 mg/24 hours oral capsule, extended release Dose : 120 mg = 1 cap(s), Oral, qDay, # 30 cap(s), 0 Refill(s), Pharmacy: [facility], 170.2, cm, 01/23/21 10:52:00 EST, Height, kg, 01/23/21 10:52:00 EST, Dosing Weight Start Date: 01/23/21 Stop Date: 02/22/21 Status: Ordered docusate sodium 100 mg oral capsule (20 sources) Start: 04-09-2024 End: 05-09-2024 take 1 capsule by mouth every twelve hours as needed docusate sodium (COLACE) 100 mg capsule Take 1 capsule by mouth two times a day as needed for constipation. 60 capsule 04/09/2024 3:35 PM EST 04/09/2024 05/09/2024 Active DOCUSATE CALCIUM (STOOL SOFTENER ORAL) Take by mouth as needed. Active DOCUSATE CALCIUM (STOOL SOFTENER ORAL) Take by mouth as needed. 0 Active Comment on above: Take by mouth as nee ded. doxycycline hyclate 100 mg oral tablet (2 sources) Tetracycline-clas s Drug Start: 04-09-2023 End: 04-14-2023 take 1 tablet by mouth twice daily doxycycline (VIBRA-TABS) 100 mg tablet Take 1 tablet by mouth two times a day for 5 days. 10 tablet 0 04/09/2023 04/14/2023 Active Start: 04-02-2023 End: 04-07-2023 take 1 tablet by mouth twice daily doxycycline (VIBRA-TABS) 100 mg tablet Take 1 tablet by mouth two times a day for 5 days. 10 tablet 0 04/02/2023 04/07/2023 Active Comment on above: Take 1 tablet by marycarmen th two times a day for 5 days. famotidine 20 mg oral tablet (20 sources) Histamine-2 Receptor Antagonist Start: 04-16-2023 famotidine (PEPCID) 20 mg tablet Indications: Hoarseness [The details of the medication are not available because there are pending changes by a home health clinician.] 30 tablet 2 04/16/2023 Active Start: 05-09-2022 End: 05-11-2024 take 1 tablet by mouth at bedtime as needed famotidine (PEPCID) 20 mg tablet Indications: Hoarseness Take 1 tablet by mouth at bedtime as needed. 30 tablet 2 05/11/2024 Active Comment on above: Take 1 tablet by marycarmen th at bedtime as needed. fluticasone (20 sources) Corticosteroid Start: 04-11-2024 fluticasone propionate (FLONASE NASAL) Use 1 [place] in the nose two times a day as needed (congestion). Patient should start on April 11, 2024. 04/11/2024 Active Start: 04-11-2024 fluticasone pr opionate (FLONASE NASAL) Use 1 [place] in the nose as needed (stuffy nose). Patient should start on April 11, 2024. 04/11/2024 Active fluticasone prop ionate (FLONASE NASAL) Use in the nose. Active Folic Acid (20 sources) Start: 01-30-2024 take 1 tablet by marycarmen th once daily FOLIC ACID ORAL Take 1 tablet by mouth once daily. 01/30/2024 Active FOLIC ACID ORAL Take by mouth. Active ketoconazole 20 mg/ml topical cream (20 sources) Azole Antifungal Start: 04-16-2023 End: 10-15-2023 ketoconazole (NIZORAL) 2 % cream Apply 1 application to affected area two times a day. Continue for 1 week after rash resolves. 60 g 1 10/15/2023 Active Comment on above: Apply 1 application to affected area two times a day. Continue for 1 week after rash resolves. Magnesium (20 sources) Start: 05-11-2024 take 1 tablet by mouth twice daily Magnesium 250 mg tab Indications: Hypomagnesemia Take 1 tablet by mouth two times a day. 180 tablet 3 05/11/2024 Active Start: 09-10-2023 take 1 tablet by marycarmen th twice daily magnesium 250 mg tablet magnesium 250 mg tablet, Take 1 tablet by mouth two times a day. Start Date: 09/10/23 Status: Ordered Repeat number: 1 Start: 04-16-2023 End: 05-11-2024 take 1 tablet by mouth twice daily Magnesium 250 mg tab Indications: Hypomagnesemia Take 1 tablet by mouth two times a day. 180 tablet 3 04/16/2023 05/11/2024 Discontinued Start: 04-16-2023 take 1 tablet by marycarmen th twice daily Magnesium 250 mg tab Indications: Hypomagnesemia Take 1 tablet by mouth two times a day. 180 tablet 3 04/16/2023 Active Start: 03-26-2023 End: 04-16-2023 take 1 tablet by mouth once daily Magnesium 250 mg tab Indications: Hypomagnesemia Take 1 tablet by mouth once daily. 90 tablet 1 03/26/2023 04/16/2023 Discontinued Start: 03-26-2023 take 1 tablet by marycarmen th once daily Magnesium 250 mg tab Indications: Hypomagnesemia Take 1 tablet by mouth once daily. 90 tablet 1 03/26/2023 Active Start: 10-17-2022 take 250 mg by mouth once daily Magnesium Active 250 MG PO DAILY October 16, 2022 11:00pm Start: 10-02-2022 End: 03-26-2023 take 1 tablet by mouth once daily Magnesium 250 mg tab Indications: Hypomagnesemia Take 1 tablet by mouth once daily. 90 tablet 1 10/02/2022 03/26/2023 Discontinued Start: 10-02-2022 take 1 tablet by marycarmen th once daily Magnesium 250 mg tab Indications: Hypomagnesemia Take 1 tablet by mouth once daily. 90 tablet 1 10/02/2022 Active Comment on above: Take 1 tablet by marycarmen th once daily. Take 1 tablet by marycarmen th two times a day. magnesium oxide 250 mg oral tablet (20 sources) Start: 07-02-2024 Magnesium 250 mg tablet Dose : 250 mg = 1 tab(s), Oral, qDay, 0 Refill(s) Start Date: 07/02/24 Status: Ordered Repeat number: 1 Start: 04-09-2024 End: 04-14-2024 take 1 tablet by mouth twice daily in the evening magnesium oxide (MAG-OX) 400 mg (241.3 mg magnesium) tablet Take 1 tablet by mouth two times a day for 10 doses. 10 tablet 04/09/2024 3:35 PM EST 04/09/2024 Active meloxicam 7.5 mg oral tablet (20 sources) Nonsteroidal Anti-inflammatory Drug Start: 04-09-2024 End: 04-23-2024 take 1 tablet by mouth once daily in the evening meloxicam (MOBIC) 7.5 mg tablet Take 1 tablet by mouth once daily for 14 days. 14 tablet 04/09/2024 3:35 PM EST 04/09/2024 04/23/2024 Active Start: 12-10-2023 End: 03-09-2024 take 1 tablet by mouth once daily meloxicam (MOBIC) 15 mg tablet Take 1 tablet by mouth once daily. 30 tablet 2 12/10/2023 03/09/2024 Active Start: 04-23-2016 MELOXICAM ORAL DAILY 04/23/2016 Active Start: 04-23-2016 End: 04-29-2022 take 15 mg by mouth once daily Meloxicam Discontinued 15 MG PO DAILY April 23, 2016 12:00am April 29, 2022 9:05am Comment on above: Take 1 tablet by marycarmen once daily. 24 hr metFORMIN hydrochloride 500 mg extended release oral tablet (20 sources) Biguanide Start: take 1 tablet by mouth twice daily at mealtime metFORMIN ER (GLUCOPHAGE XR) 500 mg 24 hr tablet Indications: Controlled type 2 diabetes mellitus with hypoglycemia, without long-term current use of insulin (HCC) Take 1 tablet by mouth two times a day with meals. with breakfast and dinner 180 tablet 3 03/30/2024 Active Start: 10-15-2023 End: 03-29-2024 take 1 tablet by mouth once daily at breakfast metFORMIN ER (GLUCOPHAGE XR) 500 mg 24 hr tablet Indications: Controlled type 2 diabetes mellitus with hypoglycemia, without long-term current use of insulin (HCC) Take 1 tablet by mouth daily with breakfast. 90 tablet 3 10/15/2023 03/29/2024 Discontinued Start: 10-02-2022 End: 10-15-2023 take 1 tablet by mouth twice daily metFORMIN ER (GLUCOPHAGE XR) 500 mg 24 hr tablet Indications: Controlled type 2 diabetes mellitus without complication, without long-term current use of insulin (HCC) Take 1 tablet by mouth two times a day. 180 tablet 1 04/17/2023 10/15/2023 Discontinued Start: 07-26-2022 End: 10-02-2022 take 1 tablet by mouth once daily at breakfast, then take 2 tablets by mouth once daily at dinner metFORMIN ER (GLUCOPHAGE XR) 500 mg 24 hr tablet Indications: Controlled type 2 diabetes mellitus without complication, without long-term current use of insulin ([facility] [place]) Take 1 tablet by mouth daily with breakfast AND 2 tablets daily with dinner. 270 tablet 3 07/26/2022 10/02/2022 Discontinued Start: 01-01-2021 End: 06-28-2022 take 1 tablet by mouth once daily at breakfast, then take 2 tablets by mouth once daily at dinner metFORMIN ER (GLUCOPHAGE XR) 500 mg 24 hr tablet Indications: Controlled type 2 diabetes mellitus without complication, without long-term current use of insulin ([facility] [place]) Take 1 tablet by mouth daily with breakfast AND 2 tablets daily with dinner. 270 tablet 3 04/01/2022 06/28/2022 Discontinued Start: 01-14-2020 End: 01-01-2021 metFORMIN ER (GLUCOPHAGE XR) 500 mg 24 hr tablet Indications: Controlled type 2 diabetes mellitus without complication, without long-term current use of insulin ([facility] [place]) Take 750mg at breakfast and 1000mg at dinner 270 tablet 3 01/14/2020 01/01/2021 Discontinued Start: 01-14-2020 End: 01-01-2021 take 0.5 tablet by mouth once daily at breakfast metFORMIN (GLUCOPHAGE) 500 mg tablet Take 0.5 tablets by mouth daily with breakfast. Take 750 in the morning by adding a half pill to 500 mgs. 45 tablet 3 01/14/2020 01/01/2021 Discontinued Start: 04-07-2019 End: 01-12-2020 metFORMIN ER (GLUCOPHAGE XR) 500 mg 24 hr tablet Indications: Controlled type 2 diabetes mellitus without complication, without long-term current use of insulin (HCC) Take 750mg at breakfast and 1000mg at dinner 04/07/2019 01/12/2020 Discontinued Start: 04-23-2016 metFORMIN 500 mg oral tablet (IR) mg = tab(s), Oral, BID, start back on 03/02, 0 Refill(s) Start Date: 01/23/21 Status: Ordered Repeat number: 1 Comment on above: Take 1 tablet by marycarmen th daily with breakfast AND 2 tablets daily with dinner. Take 1 tablet by marycarmen th twice daily. Take 1 tablet by marycarmen th two times a day. metoprolol tartrate 25 mg oral tablet (20 sources) beta-Adrenergic Gino Start: 11-19-2022 take 1 tablet by mouth once daily Metoprolol Succinate ER 25 mg oral TABLET extended release 1 tab(s), Oral, qDay, do not crush or chew., # 90 tab(s), 2 Refill(s), Pharmacy: [facility], 170.2, cm, 06/26/22 9:56:00 EDT, Height, kg, 06/26/22 9:56:00 EDT, Dosing Weight Start Date: 11/19/22 Status: Ordered Quantity: 90.0 Unit: tab(s) Repeat number: 1 Start: 06-04-2022 End: 10-15-2023 take 1 tablet by mouth once daily metoprolol succinate ER (TOPROL XL) 25 mg 24 hr tablet Take 1 tablet by mouth once daily. 90 tablet 3 10/15/2023 Active Start: 04-29-2022 take 25 mg by mouth at bedtime Metoprolol Succinate Active 25 MG PO AT BEDTIME April 28, 2022 11:00pm Start: 04-29-2022 Metoprolol Suc cinate Active EACH PO April 29, 2022 12:00am Start: 08-10-2021 take 1 tablet by marycarmen th once daily metoprolol succinate ER (TOPROL XL) 50 mg 24 hr tablet Take 1 tablet by mouth once daily. 0 08/10/2021 Active Start: 06-11-2021 End: 03-08-2022 Toprol-XL 50 mg oral tablet, extended release Dose : 50 mg = 1 tab(s), Oral, qDay, dose change, # 90 tab(s), 2 Refill(s), Pharmacy: [facility], 170.2, cm, 06/11/21 13:15:00 EDT, Height, kg, 06/11/21 13:15:00 EDT, Dosing Weight Start Date: 06/11/21 Stop Date: 03/08/22 Status: Ordered Start: 04-09-2021 End: 07-08-2021 Toprol-XL 50 mg oral tablet, extended release Dose : 50 mg = 1 tab(s), Oral, BID, # 60 tab(s), 2 Refill(s), Pharmacy: [facility], 170.2, cm, 04/09/21 12:53:00 EST, Height, kg, 04/09/21 12:53:00 EST, Dosing Weight Start Date: 04/09/21 Stop Date: 07/08/21 Status: Ordered Start: 03-01-2021 Toprol-XL 50 m g oral tablet, extended release Dose : 50 mg = 1 tab(s), Oral, qDay, # 30 tab(s), 6 Refill(s), Pharmacy: [facility], 170.2, cm, 03/01/21 6:19:00 EST, Height, kg, 03/01/21 6:19:00 EST, Dosing Weight Start Date: 03/01/21 Status: Ordered Start: 01-01-2021 End: 08-10-2021 take 0.5 tablet by mouth twice daily metoprolol tartrate, short acting, (LOPRESSOR) 25 mg tablet Indications: PVC's (premature ventricular contractions) Take 0.5 tablets by mouth twice daily. 30 tablet 1 01/01/2021 08/10/2021 Discontinued Comment on above: Take 0.5 tablets by mouth twice daily. Take 1 tablet by marycarmen once daily. mupirocin 0.02 mg/mg topical ointment (7 sources) RNA Synthetase Inhibitor Antibacterial Start: 03-22-2024 End: 04-07-2024 mupirocin (BACTROBAN) 2 % ointment Indications: Pre-operative examination Apply 0.5 inch with cotton swab (Q-tip) to each nostril in the morning and evening for 5 days prior to and including day of surgery. 22 g 03/22/2024 04/07/2024 Active Start: 01-30-2024 End: 02-15-2024 mupirocin (BACTROBAN) 2 % oi ntment Apply 0.5 inch with cotton swab (Q-tip) to each nostril in the morning and evening for 5 days prior to and including day of surgery. 22 g 01/30/2024 02/15/2024 Active nystatin 100 unt/mg topical powder (20 sources) Polyene Antifungal Start: 05-07-2023 nystatin (M YCOSTATIN) powder Apply 1 application to affected area four times daily. Continue to use for a week after rash resolves. Use as needed for recurrences 60 g 1 05/07/2023 Active Start: 05-07-2023 nystatin (MYCO STATIN) powder [The details of the medication are not available because there are pending changes by a home health clinician.] 60 g 1 05/07/2023 Active Comment on above: Apply 1 application to affected area four times daily. Continue to use for a week after rash resolves. Use as needed for recurrences omeprazole 20 mg delayed release oral capsule (20 sources) Proton Pump Inhibitor Start: 11-05-19 23 End: 10-15-19 24 take 1 capsule by mouth twice daily omeprazole (PRILOSEC) 20 mg capsule Indications: Gastroesophageal reflux disease without esophagitis Take 1 capsule by mouth two times a day. 180 capsule 3 10/15/2023 Active Start: 06-24-2012 End: 10-02-2022 take 1 capsule by mouth twice daily omeprazole (PRILOSEC) 20 mg capsule Indications: Gastroesophageal reflux disease without esophagitis Take 1 capsule by mouth twice daily. 180 capsule 3 08/26/2019 06/26/2020 Discontinued Comment on above: Take 1 capsule by [facility] twice daily. oxyCODONE hydrochloride 5 mg oral tablet (15 sources) Opioid Agonist Start: 5 End: 5 take 1 tablet by mouth every six hours as needed oxyCODONE IR (ROXICODONE) 5 mg immediate release tablet Indications: S/P total right hip arthroplasty Take 1-2 tablets by mouth every 6 hours as needed for pain for up to 7 days. 30 tablet 04/19/2024 04/26/2024 Active pantoprazole 40 mg delayed release oral tablet (7 sources) Proton Pump Inhibitor Start: pantoprazole 40 mg oral enteric coated tablet Dose : 40 mg = 1 tab(s), Oral, BID, 0 Refill(s) Start Date: 07/02/24 Status: Ordered Repeat number: 1 Start: 10-02-2022 End: 11-04-2022 take 1 tablet by mouth once daily before breakfast pantoprazole DR (PROTONIX) 40 mg tablet Indications: Gastroesophageal reflux disease with esophagitis without hemorrhage Take 1 tablet by mouth daily before breakfast. Take on empty stomach, 1/2 hr before meal. 90 tablet 3 10/02/2022 11/04/2022 Discontinued take 40 mg by mouth twice daily pantoprazole sodium (PANTOPRAZOLE ORAL) Take 40 mg by mouth two times a day. Active Comment on above: Take 1 tablet by marycarmen th daily before breakfast. Take on empty stomach, 1/2 hr before meal. polyethylene glycol 3350 60113 mg powder for oral solution (20 sources) Osmotic Laxative Start: 05-18-2024 polyethylene glycol 3350 17 gram/dose powder Drink a mix of 1 scoop in 8oz of water/beverage once daily as needed for constipation. May repeat once daily as needed. 05/18/2024 Active Start: 04-09-2024 End: 04-23-2024 polyethylene glycol 3350 (ID RALAX) 17 gram/dose powder Take 17 g by mouth once daily as needed for constipation for up to 10 days. Dissolve dose in 4 - 8 ounces of liquid and take as directed. 238 g 04/09/2024 3:35 PM EST 04/09/2024 04/23/2024 Active Start: 05-27-2011 End: 04-01-2022 Polyethylene Glycol 3350 (ID RALAX) 17 gram/dose ORAL powder Indications: Abdominal pain, other specified site Take by mouth. use as directed 1 Bottle 2 05/27/2011 04/01/2022 Discontinued Comment on above: Take by mouth. use a s directed predniSONE 2.5 mg oral tablet (2 sources) Start: 05-27-19 End: 06-08-19 take 1 tablet by mouth twice daily predniSONE (DELTASONE) 2.5 mg tablet Take 1 tablet by mouth two times a day for 12 days. 24 tablet 05/26/2024 06/07/2024 Active saccharomyces boulardii 250 mg oral capsule (6 sources) Start: 05-19-19 End: 08-17-19 take 1 capsule by mouth twice daily Saccharomyces boulardii (FLORASTOR) 250 mg capsule Take 1 capsule by mouth two times a day. 60 capsule 2 05/18/2024 08/16/2024 Active sacubitril 49 mg / valsartan 51 mg oral tablet (20 sources) Angiotensin 2 Receptor Gino Start: 01-19-20 take 1 tablet by mouth twice daily sacubitril-valsartan 49 mg-51 mg oral tablet Dose = 1 tab(s), Oral, BID, # 180 tab(s), 3 Refill(s), Pharmacy: [facility], 170, cm, 12/19/23 10:06:00 EDT, Height, kg, 12/19/23 10:06:00 EDT, Dosing Weight Start Date: 01/19/24 Status: Ordered Quantity: 180.0 Unit: tab(s) Repeat number: 4 Start: 04-29-2022 Sacubitril-Sherry sartan (Entresto) 49-51 mg tablet Active 1 TABLET PO April 29, 2022 12:00am Start: 03-12-2022 End: 04-16-2023 take 1 tablet by mouth twice daily ENTRESTO 49-51 mg tablet Indications: Coronary artery 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 angina pectoris Take 1 tablet by mouth two times a day. (getting from patient assistance) 04/16/2023 Active Start: 06-11-2021 End: 04-01-2022 take 1 tablet by mouth twice daily ENTRESTO 24-26 mg tablet Take 1 tablet by mouth twice daily. 0 07/09/2021 04/01/2022 Discontinued Comment on above: Take 1 tablet by marycarmen th twice daily. Take 0.5 tablets by mouth twice daily. Take 1 tablet by marycarmen th two times a day. (getting from patient assistance) 24 hr venlafaxine 75 mg extended release oral capsule (20 sources) Serotonin and Norepinephrine Reuptake Inhibitor Start: 07-02-2024 Effexor XR 75 mg oral capsule, extended release Dose : 75 mg = 1 cap(s), Oral, qDay, # 30 cap(s), 0 Refill(s) Start Date: 07/02/24 Status: Ordered Quantity: 30.0 Unit: cap(s) Repeat number: 1 Start: 06-25-2024 take 1 capsule by [facility] once daily at bedtime venlafaxine ER (EFFEXOR XR) 75 mg 24 hr capsule Indications: Recurrent major depressive disorder, in full remission Take 1 capsule by mouth daily at bedtime. 90 capsule 3 06/25/2024 Active Start: 01-23-2021 venlafaxine 75 mg oral tablet Dose : 75 mg = 1 tab(s), Oral, BID, 0 Refill(s) Start Date: 01/23/21 Status: Ordered Start: 01-04-2021 End: 01-30-2024 take 1 capsule by mouth once daily at bedtime venlafaxine ER (EFFEXOR XR) 75 mg 24 hr capsule Indications: Recurrent major depressive disorder, in full remission (HCC) Take 1 capsule by mouth daily at bedtime. 90 capsule 3 04/16/2023 01/30/2024 Discontinued Comment on above: Take 75 mg by mouth daily at bedtime. Take 1 capsule by [facility] daily at bedtime. Completed/Discontinued Medications Medication Drug Class(es) Dates Sig (Normalized) Sig (Original) acetaminophen 325 mg / oxyCODONE hydrochloride 5 mg oral tablet (1 source) Opioid Agonist Start: 11-13-2022 End: 11-26-2022 take 1 tablet by mouth every four hours Oxycodone-Acetamin ophen (Endocet) 5-325 mg tablet Discontinued 1 TABLET PO Q4H 30 5 November 13, 2022 November 26, 2022 8:54am 24 hr buPROPion hydrochloride 150 mg extended release oral tablet (2 sources) Aminoketone Start: 06-28-2022 End: 07-26-2022 take 1 tablet by mouth once daily buPROPion XL (WELLBUTRIN XL) 150 mg 24 hr tablet Indications: Major depressive disorder, recurrent episode, moderate (HCC) Take 1 tablet by mouth once daily. 30 tablet 2 06/28/2022 07/26/2022 Discontinued Comment on above: Take 1 tablet by marycarmen th once daily. carbamide peroxide 65 mg/ml otic solution (11 sources) Start: 06-26-2020 carbamide peroxide (DEBROX) 6.5 % otic solution Use 5 Drops in both ears twice daily. 18 mL 2 06/26/2020 Active Comment on above: Use 5 Drops in both ears twice daily. cetirizine hydrochloride 10 mg oral tablet (2 sources) Histamine-1 Receptor Antagonist Start: 05-09-2022 take 1 tablet by mouth once daily cetirizine (ZYRTEC) 10 mg tablet Indications: Nasal drainage Take 1 tablet by mouth once daily. for runny nose and post nasal drip 30 tablet 2 05/09/2022 Active Comment on above: Take 1 tablet by marycarmen th once daily. for runny nose and post nasal drip COMPOUNDED PRESCRIPTION (4 sources) Start: 06-17-2017 End: 01-01-2021 COMPOUNDED PRESCRIPTION Consult Endo: Re:Patient feels he has symptoms of low testosterone, his tests are equivocal, wants to seek expert opinion whether he needs testosterone supplementation. 1 Each 2 06/17/2017 01/01/2021 Discontinued Start: 05-21-2017 End: 01-01-2021 COMPOUNDED PRESCRIPTION Maria E cations: Tubular adenoma of colon Consult GI Dr. Stringer Re: Tubular adenoma, 5 year colonoscopy follow up 1 Each 05/21/2017 01/01/2021 Discontinued diphenhydrAMINE hydrochloride 25 mg oral capsule (9 sources) Histamine-1 Receptor Antagonist Start: 08-17-2020 End: 04-01-2022 take 2 capsules by mouth every six hours as needed diphenhydrAMINE (BENADRYL) 25 mg capsule Take 2 capsules by mouth every 6 hours as needed. 20 capsule 0 08/17/2020 04/01/2022 Discontinued Comment on above: Take 2 capsules by m outh every 6 hours as needed. fluconazole 100 mg oral tablet (1 source) Azole Antifungal Start: 05-07-2023 End: 05-10-2023 take 1 tablet by mouth once daily fluconazole (DIFLUCAN) 100 mg tablet Take 1 tablet by mouth once daily for 3 days. 3 tablet 0 05/07/2023 05/10/2023 Comment on above: Take 1 tablet by marycarmen th once daily for 3 days. glipiZIDE 5 mg oral tablet (2 sources) Sulfonylurea Start: 06-28-2022 End: 07-26-2022 take 1 tablet by mouth twice daily before mealtime glipiZIDE (GLUCOTROL) 5 mg tablet Indications: Controlled type 2 diabetes mellitus without complication, without long-term current use of insulin (HCC) Take 1 tablet by mouth twice daily before meals. 60 tablet 2 06/28/2022 07/26/2022 Discontinued Comment on above: Take 1 tablet by marycarmen th twice daily before meals. losartan potassium 100 mg oral tablet (20 sources) Angiotensin 2 Receptor Gino Start: 04-23-2016 End: 04-29-2022 take 1 tablet by mouth once daily losartan (COZAAR) 100 mg tablet Indications: Essential hypertension Take 1 tablet by mouth once daily. 90 tablet 3 08/26/2019 06/26/2020 Discontinued Comment on above: Take 1 tablet by marycarmen th once daily. simvastatin 20 mg oral tablet (19 sources) HMG-CoA Reductase Inhibitor Start: 04-23-2016 End: 04-29-2022 take 1 tablet by mouth once daily at bedtime simvastatin (ZOCOR) 20 mg tablet Indications: Pure hypercholesterolemia Take 1 tablet by mouth daily at bedtime. 90 tablet 3 08/26/2019 06/26/2020 Discontinued Comment on above: Take 1 tablet by marycarmen th daily at bedtime. traZODone hydrochloride 50 mg oral tablet (20 sources) Serotonin Reuptake Inhibitor Start: 05-07-2023 End: 03-22-2024 take 25-50 mg by mouth every twenty-four hours as needed traZODone (DESYREL) 50 mg tablet Take 0.5-1 tablets by mouth at bedtime as needed (sedation). 30 tablet 1 05/07/2023 03/22/2024 Discontinued Comment on above: Take 0.5-1 tablets b y mouth at bedtime as needed (sedation). triamcinolone acetonide 5 mg/ml topical cream (2 sources) Corticosteroid Start: 09-10-2017 End: 08-22-2020 triamcinolone acetonide (KENALOG) 0.5 % cream Apply 1 application to affected area twice daily. For rash/itching. Apply sparingly. Avoid face/skin fold. 2 Tube 2 09/10/2017 08/22/2020 Discontinued Problems Active Problems Problem Classification Problem Date Documented Da te Episodic/Chronic Calculus of urinary tract (8 sources) Kidney stone 01-17-2021 Episodic Cancer of prostate (20 sources) Malignant tumor of prostate; Translations: [Malignant neoplasm of prostate] Onset: 01-16-2017 01-16-2017 Chronic Cardiac dysrhythmias (1 source) Ventricular premature beats; Translations: [Ventricular premature depolarization] Chronic Cardiac dysrhythmias (7 sources) Palpitations; Translations: [Palpitations] 02-13-2021 Episodic Congestive heart failure; nonhypertensive (8 sources) Left ventricular cardiac dysfunction 01-17-2021 Chronic Coronary atherosclerosis and other heart disease (20 sources) Coronary arteriosclerosis; Translations: [Coronary atherosclerosis] Onset: 02-02-2024 04-04-2021 Chronic Diabetes mellitus with complications (4 sources) Hypoglycemia due to type 2 diabetes mellitus; Translations: [Type 2 diabetes mellitus with hypoglycemia without coma] Onset: 03-22-2024 10-15-2023 Chronic Diabetes mellitus without complication (20 sources) Type 2 diabetes mellitus without complication; Translations: [Type 2 diabetes mellitus without complications] Onset: 08-15-2014 Chronic Disorders of lipid metabolism (20 sources) Hyperlipidemia; Translations: [Pure hypercholesterolemia ] Onset: 10-26-2004 01-17-2021 Chronic Diverticulosis and diverticulitis (20 sources) Diverticulitis; Translations: [Diverticulosis of colon] 01-17-2021 Chronic Esophageal disorders (20 sources) Gastro-esophageal reflux disease with esophagitis; Translations: [Reflux esophagitis] Onset: 04-24-2007 04-24-2007 Chronic Esophageal disorders (1 source) Esophageal disorders; Translations: [Gastroesophageal reflux disease with esophagitis without hemorrhage] Onset: 04-24-2007 Essential hypertension (20 sources) Hypertensive disorder; Translations: [Essential (primary) hypertension] Onset: 07-24-2011 01-17-2021 Chronic Immunizations and screening for infectious disease (1 source) Requires varicella vaccination; Translations: [Encounter for immunization] 04-16-2023 Episodic Malaise and fatigue (20 sources) Fatigue; Translations: [Chronic fatigue, unspecified] Onset: 05-22-2023 Chronic Malaise and fatigue (20 sources) Fatigue; Translations: [Other fatigue] Onset: 06-18-2017 Resolved: 01-03-2021 01-17-2021 Episodic Mycoses (2 sources) Candidal intertrigo; Translations: [Candidiasis of skin and nail] 05-07-2023 Episodic Nutritional deficiencies (3 sources) Vitamin D deficiency; Translations: [Vitamin D deficiency, unspecified] Onset: 10-07-2023 Chronic Osteoarthritis (20 sources) Arthritis of shoulder region joint; Translations: [Primary osteoarthritis, unspecified shoulder] Onset: 10-05-2015 02-13-2021 Chronic Other aftercare (7 sources) Patient encounter status; Translations: [Other penitentiary (current) drug therapy] Episodic Other connective tissue disease (20 sources) History of total hip arthroplasty; Translations: [Presence of right artificial hip joint] Onset: 04-09-2024 04-09-2024 Chronic Other connective tissue disease (6 sources) History of repair of hip joint; Translations: [Presence of right artificial hip joint] 04-14-2024 Chronic Other connective tissue disease (3 sources) Presence of right artificial hip joint; Translations: [Status post right hip replacement] Onset: 04-09-2024 Chronic Other connective tissue disease (8 sources) Unspecified rotator cuff tear or rupture of left shoulder, not specified as traumatic; Translations: [Tear of left rotator cuff] 06-27-2022 Episodic Other connective tissue disease (2 sources) Internal impingement of left shoulder; Translations: [Impingement syndrome of left shoulder] 04-29-2022 Episodic Other connective tissue disease (4 sources) Impingement syndrome of left shoulder; Translations: [Other affections of shoulder region, not elsewhere classified] 06-27-2022 Episodic Other connective tissue disease (1 source) Tear of left rotator cuff; Translations: [Unspecified rotator cuff tear or rupture of left shoulder, not specified as traumatic] 06-27-2022 Episodic Other gastrointestinal disorders (1 source) Functional bloating; Translations: [Abdominal distension (gaseous)] Episodic Other liver diseases (1 source) Steatosis of liver; Translations: [Fatty (change of) liver, not elsewhere classified] Chronic Other liver diseases (1 source) Elevated liver enzymes level; Translations: [Abnormal levels of other serum enzymes] 05-11-2024 Episodic Other lower respiratory disease (1 source) Multiple nodules of lung; Translations: [Other nonspecific abnormal finding of lung field] Episodic Other lower respiratory disease (1 source) Wheezing; Translations: [Wheezing] 12-02-2019 Episodic Other nervous system disorders (2 sources) Impaired cognition; Translations: [Other symptoms and signs involving cognitive functions and awareness] 12-24-2023 Episodic Other non-traumatic joint disorders (5 sources) Pain in left shoulder; Translations: [Left shoulder pain] 04-29-2022 Episodic Other non-traumatic joint disorders (1 source) Chronic pain of left upper limb; Translations: [Pain in left shoulder] 05-22-2023 Episodic Other non-traumatic joint disorders (4 sources) Hip pain; Translations: [Pain in unspecified hip] 05-22-2023 Episodic Other nutritional; endocrine; and metabolic disorders (4 sources) Hypomagnesemia; Translations: [Hypomagnesemia] 10-02-2022 Chronic Other nutritional; endocrine; and metabolic disorders (1 source) Hypomagnesemia; Translations: [Hypomagnesemia] Onset: 10-07-2023 Chronic Other screening for suspected conditions (not mental disorders or infectious disease) (20 sources) Plain X-ray result abnormal; Translations: [Abnormal findings on diagnostic imaging of other specified body structures] Onset: 11-20-2021 Chronic Other screening for suspected conditions (not mental disorders or infectious disease) (13 sources) Echocardiogram abnormal; Translations: [Decreased vitamin B12 level] Onset: 01-27-2024 01-17-2021 Episodic Other upper respiratory disease (3 sources) Hoarse; Translations: [Dysphonia] Episodic Other upper respiratory disease (1 source) Nasal discharge; Translations: [Other specified disorders of nose and nasal sinuses] Episodic Other upper respiratory infections (1 source) Acute pansinusitis; Translations: [Acute pansinusitis, unspecified] 03-30-2023 Episodic Michelle-; endo-; and myocarditis; cardiomyopathy (except that caused by tuberculosis or sexually transmitted disease) (20 sources) Cardiomyopathy; Translations: [Cardiomyopathy, unspecified] Onset: 02-02-2024 02-02-2024 Chronic Residual codes; unclassified (20 sources) Obstructive sleep apnea syndrome; Translations: [Obstructive sleep apnea (adult) (pediatric)] Onset: 06-15-2017 06-15-2017 Chronic Residual codes; unclassified (3 sources) Amnesia; Translations: [Other amnesia] 12-24-2023 Episodic Spondylosis; intervertebral disc disorders; other back problems (20 sources) Cervical spondylosis without myelopathy; Translations: [Spondylosis without myelopathy or radiculopathy, cervical region] Onset: 09-01-2014 09-01-2014 Chronic Thyroid disorders (1 source) Hypothyroidism; Translations: [Hypothyroidism, unspecified] Chronic Unclassified (5 sources) Polyvinyl chloride (substance) 04-04-2021 Unclassified (2 sources) Patient encounter status 05-11-2024 Past or Other Problems Problem Classification Problem Date Documented Date Episodic/Chronic Abdominal hernia (20 sources) Diaphragmatic hernia; Translations: [Diaphragmatic hernia without obstruction or gangrene] Onset: 04-24-2007 04-24-2007 Episodic Abdominal pain (20 sources) Abdominal pain; Translations: [Unspecified abdominal pain] Onset: 12-17-2006 Resolved: 11-21-2014 11-21-2014 Episodic Blindness and vision defects (20 sources) Diplopia; Translations: [Diplopia] Onset: 05-22-2023 05-22-2023 Episodic Gastritis and duodenitis (20 sources) Acute gastritis; Translations: [Acute gastritis without bleeding] Onset: 04-24-2007 Resolved: 11-21-2014 10-05-2015 Episodic Headache; including migraine (20 sources) Headache; Translations: [Headaches] Onset: 01-17-2006 Resolved: 11-21-2014 05-22-2023 Episodic Hemorrhoids (20 sources) Internal hemorrhoids; Translations: [Other hemorrhoids] Onset: 04-24-2007 Resolved: 11-21-2014 11-21-2014 Episodic Hyperplasia of prostate (20 sources) Benign prostatic hyperplasia; Translations: [Benign prostatic hyperplasia with lower urinary tract symptoms] Onset: 11-21-2014 Resolved: 02-02-2024 11-21-2014 Chronic Intracranial injury (20 sources) History of concussion injury of brain; Translations: [Personal history of traumatic brain injury] Onset: 06-18-2017 Resolved: 08-26-2019 08-26-2019 Episodic Mood disorders (20 sources) Recurrent major depressive episodes, moderate ; Translations: [Major depressive disorder, recurrent, moderate] Onset: 01-17-2006 Resolved: 05-22-2023 01-16-2017 Chronic Other aftercare (1 source) Encounter for therapeutic drug level monitoring; Translations: [Encounter for therapeutic drug monitoring] Onset: 03-22-2024 Episodic Other and unspecified benign neoplasm (20 sources) Benign neoplasm of colon; Translations: [Benign neoplasm of colon, unspecified] Onset: 04-24-2007 04-24-2007 Episodic Other connective tissue disease (20 sources) Triggering of digit; Translations: [Trigger finger, right middle finger] Onset: 08-29-2011 Resolved: 01-03-2021 01-03-2021 Episodic Other lower respiratory disease (4 sources) Nodule of lung; Translations: [Solitary pulmonary nodule] Onset: 01-16-2017 01-16-2017 Episodic Other lower respiratory disease (20 sources) Solitary nodule of lung; Translations: [Solitary pulmonary nodule] Onset: 01-16-2017 Episodic Other nervous system disorders (20 sources) Paresthesia of upper limb; Translations: [Anesthesia of skin] Onset: 09-01-2014 09-01-2014 Episodic Other nervous system disorders (2 sources) Other symptoms and signs involving cognitive functions and awareness; Translations: [Brain fog] Onset: 12-24-2023 Episodic Other non-traumatic joint disorders (20 sources) Arthralgia of the pelvic region and thigh; Translations: [Pain in unspecified hip] Onset: 01-17-2006 01-17-2006 Episodic Other non-traumatic joint disorders (1 source) Pain in right hip; Translations: [Bilateral hip pain] Onset: 12-10-2023 Episodic Other non-traumatic joint disorders (1 source) Pain in left hip; Translations: [Bilateral hip pain] Onset: 12-10-2023 Episodic Residual codes; unclassified (17 sources) Other amnesia; Translations: [Memory loss] Onset: 06-18-2017 06-18-2017 Episodic Residual codes; unclassified (20 sources) Memory impairment; Translations: [Other amnesia] Onset: 06-18-2017 06-18-2017 Episodic Residual codes; unclassified (20 sources) Disturbance of consciousness; Translations: [Transient alteration of awareness] Onset: 01-17-2006 Resolved: 01-03-2021 02-12-2021 Episodic Spondylosis; intervertebral disc disorders; other back problems (20 sources) Neck pain; Translations: [Cervicalgia] Onset: 08-16-2014 Resolved: 01-03-2021 08-16-2014 Episodic Unclassified (1 source) History of repair of hip joint 04-19-2024 Results Test Name Value Interpretation Reference Range Facility [facility] 06-29-2024 JOHNN Telephone (ARONMDNA) DESTINEY OCAMPO ([id number]) 1950 M Date Time Provider Department 06/29/24 NAKUL MADDOX During your visit today, we recorded the following information about you: [place] Christian 06/29/2024 4:15 PM Signed Patient needs antibiotic for a dental cleaning sent to [facility]. Thank you Allergies As of Date: 06/29/2024 Noted Allergy Reaction LISINOPRIL 08/25/2012 3 - Cough Date Reviewed: 05/26/2024 Reviewed by: Liliane Linares LPN - Fully Assessed Primary Visit Diagnosis:Status post right hip replacement [Z96.641] Order(s):amoxicillin (AMOXIL) 500 mg capsuleTake 2 capsules three times a day, starting one day prior dental appointments/procedures and on the day of the dental procedure (two days for 6 doses total)Disp: 12 capsuleRfl: 3 Prescriptions as of 06/30/2024 - amoxicillin (AMOXIL) 500 mg capsule Take 2 capsules three times a day, starting one day prior dental appointments/procedures and on the day of the dental procedure (two days for 6 doses total) - venlafaxine ER (EFFEXOR XR) 75 mg 24 hr capsule Take 1 capsule by mouth daily at bedtime. - pantoprazole sodium (PANTOPRAZOLE ORAL) Take 40 mg by mouth two times a day. - Saccharomyces boulardii (FLORASTOR) 250 mg capsule Take 1 capsule by mouth two times a day. - polyethylene glycol 3350 17 gram/dose powder Drink a mix of 1 scoop in 8oz of water/beverage once daily as needed for constipation. May repeat once daily as needed. - atorvastatin (LIPITOR) 40 mg tablet Take 1 tablet by mouth once daily. - Magnesium 250 mg tab Take 1 tablet by mouth two times a day. - famotidine (PEPCID) 20 mg tablet Take 1 tablet by mouth at bedtime as needed. - aspirin, enteric coated (ASPIRIN, ENTERIC COATED) 81 mg EC tablet Take 1 tablet by mouth two times a day for 28 days. - magnesium oxide (MAG-OX) 400 mg (241.3 mg magnesium) tablet Take 1 tablet by mouth two times a day for 10 doses. - acetaminophen (TYLENOL) 500 mg tablet Take 2 tablets by mouth every 8 hours as needed for pain. - ascorbic acid, vitamin C, (VITAMIN C) 500 mg tablet Take 1 tablet by mouth two times a day with meals for 27 doses. - metFORMIN ER (GLUCOPHAGE XR) 500 mg 24 hr tablet Take 1 tablet by mouth two times a day with meals. with breakfast and dinner - cyanocobalamin, vitamin B-12, (VITAMIN B-12 ORAL) Take 1 tablet by mouth once daily. - FOLIC ACID ORAL Take 1 tablet by mouth once daily. - fluticasone propionate (FLONASE NASAL) Use 1 [place] in the nose two times a day as needed (congestion). Patient should start on April 11, 2024. - ketoconazole (NIZORAL) 2 % cream Apply 1 application to affected area two times a day. Continue for 1 week after rash resolves. - metoprolol succinate ER (TOPROL XL) 25 mg 24 hr tablet Take 1 tablet by mouth once daily. - omeprazole (PRILOSEC) 20 mg capsule Take 1 capsule by mouth two times a day. - nystatin (MYCOSTATIN) powder Apply 1 application to affected area four times daily. Continue to use for a week after rash resolves. Use as needed for recurrences - ENTRESTO 49-51 mg tablet Take 1 tablet by mouth two times a day. (getting from patient assistance) - Cholecalciferol, Vitamin D3, 50 mcg (2,000 unit) cap Take 1 capsule by mouth once daily. - COMPOUNDED PRESCRIPTION Generic Glucometer - I each 50 strips and lancets. Re: Diabetes mellitus controlled with hypoglycemia. - Lancets lancets Test blood sugar(s) 1-2 times daily or as directed. Dx: Type 2 DM - Controlled E11.9 Insulin: No - blood sugar diagnostic (BLOOD GLUCOSE TEST) test strip Test blood sugar(s) 1-2 times daily or as directed. Dx: Type 2 DM - Controlled E11.9 Insulin: No - Blood-Glucose Meter monitoring kit Glucose Meter of Choice (per insurance coverage)- Kit - Dx: Type 2 DM - Controlled E11.9, Test 1-2 times a day or as directed. No insulin Problem List As Of Date 06/29/2024 Noted Resolved PURE HYPERCHOLESTEROLEM [E78.00] DIVERTICULOSIS OF COLON W/O BLEED [K57.30] Dysthymic disorder [F34.1] 01/03/2021 PAIN HIP JOINT [M25.559] 01/17/2006 DEPRESSION RECURRENT( Moderate) [F33.1] 01/17/2006 05/22/2023 SOMNOLENCE [R40.4] 01/17/2006 01/03/2021 Headache(784.0) [R51] 01/17/2006 11/21/2014 Abdominal pain, other specified site [R10.9] 12/17/2006 11/21/2014 Diaphragmatic hernia [K44.9] 04/24/2007 GASTRITIS ANTRAL( W/O Hemorrhage) [K29.60] 04/24/2007 11/21/2014 ESOPHAGITIS REFLUX [K21.00] 04/24/2007 HEMORRHOIDS INTERNAL [K64.8] 04/24/2007 11/21/2014 ACUTE GASTRITIS W/O HEMORRHAGE [K29.00] 04/24/2007 BENIGN NEOPLASM LG BOWEL [D12.6] 04/24/2007 Hypertension [I10] 07/24/2011 Trigger middle finger of right hand [M65.331] 08/29/2011 01/03/2021 Trigger index finger of right hand [M65.321] 08/29/2011 07/16/2016 Diabetes mellitus type 2, controlled, without c*08/15/2014 Neck pain [M54.2] 08/16/2014 (more content not included)... Normal [facility] Renee 05-28-2024 JOHNN Telephone (INTMWS) TERRENCEDESTINEY Keegan ([id number]) 1950 M Date Time Provider Department 05/28/24 KEREN ARCE During your visit today, we recorded the following information about you: Leilani Mathis RN 05/28/2024 8:33 AM Signed Patient's calls and states that patient has not had any appetite since surgery. Patient has lost around 20 pounds since surgery. is worried that patient is not as strong as what he was prior to surgery. asking for recommendations on building patient's strength? Patient continues with abdominal pain. Patient did see general surgery and has a colonoscopy/EGD scheduled for July. is asking if any of patient's medications could be causing abdominal pain? Please review and advise, CHRISTOPH Calle Terri, APRN.ELECTRIC LOCOMOTIVE CRANE OPERATOR 05/28/2024 10:50 AM Signed He was seen by Dr. Maddox his orthopedic surgeon on . He recommended therapy and home exercises, this should help build strength. If he is not eating and drinking normally this can also make him feel weak can cause weight loss. Recommend 3 meals a day, if not not consuming consider meal replacement such as Boost. Drink 64 ounces of fluid daily. He reported not taking omeprazole and famotidine at his office visit for 05/26/2024, would recommend resuming omeprazole twice daily if he has stopped. Resume famotidine if omeprazole is not sufficient to help with abdominal pain. If he is noting constipation recommend MiraLAX as previously discussed. Tamera Mahoney MA 05/28/2024 12:39 PM Signed Pt and notified. Tamera Mahoney MA Allergies As of Date: 05/28/2024 Noted Allergy Reaction LISINOPRIL 08/25/2012 3 - Cough Date Reviewed: 05/26/2024 Reviewed by: Liliane Linares LPN - Fully Assessed Reason for Visit: Patient Question [9727] Prescriptions as of 05/28/2024 - pantoprazole sodium (PANTOPRAZOLE ORAL) Take 40 mg by mouth two times a day. - predniSONE (DELTASONE) 2.5 mg tablet Take 1 tablet by mouth two times a day for 12 days. - Saccharomyces boulardii (FLORASTOR) 250 mg capsule Take 1 capsule by mouth two times a day. - polyethylene glycol 3350 17 gram/dose powder Drink a mix of 1 scoop in 8oz of water/beverage once daily as needed for constipation. May repeat once daily as needed. - atorvastatin (LIPITOR) 40 mg tablet Take 1 tablet by mouth once daily. - Magnesium 250 mg tab Take 1 tablet by mouth two times a day. - famotidine (PEPCID) 20 mg tablet Take 1 tablet by mouth at bedtime as needed. - aspirin, enteric coated (ASPIRIN, ENTERIC COATED) 81 mg EC tablet Take 1 tablet by mouth two times a day for 28 days. - magnesium oxide (MAG-OX) 400 mg (241.3 mg magnesium) tablet Take 1 tablet by mouth two times a day for 10 doses. - acetaminophen (TYLENOL) 500 mg tablet Take 2 tablets by mouth every 8 hours as needed for pain. - ascorbic acid, vitamin C, (VITAMIN C) 500 mg tablet Take 1 tablet by mouth two times a day with meals for 27 doses. - metFORMIN ER (GLUCOPHAGE XR) 500 mg 24 hr tablet Take 1 tablet by mouth two times a day with meals. with breakfast and dinner - cyanocobalamin, vitamin B-12, (VITAMIN B-12 ORAL) Take 1 tablet by mouth once daily. - FOLIC ACID ORAL Take 1 tablet by mouth once daily. - fluticasone propionate (FLONASE NASAL) Use 1 [place] in the nose two times a day as needed (congestion). Patient should start on April 11, 2024. - ketoconazole (NIZORAL) 2 % cream Apply 1 application to affected area two times a day. Continue for 1 week after rash resolves. - metoprolol succinate ER (TOPROL XL) 25 mg 24 hr tablet Take 1 tablet by mouth once daily. - omeprazole (PRILOSEC) 20 mg capsule Take 1 capsule by mouth two times a day. - nystatin (MYCOSTATIN) powder Apply 1 application to affected area four times daily. Continue to use for a week after rash resolves. Use as needed for recurrences - ENTRESTO 49-51 mg tablet Take 1 tablet by mouth two times a day. (getting from patient assistance) - Cholecalciferol, Vitamin D3, 50 mcg (2,000 unit) cap Take 1 capsule by mouth once daily. - COMPOUNDED PRESCRIPTION Generic Glucometer - I each 50 strips and lancets. Re: Diabetes mellitus controlled with hypoglycemia. - Lancets lancets Test blood sugar(s) 1-2 times daily or as directed. Dx: Type 2 DM - Controlled E11.9 Insulin: No - blood sugar diagnostic (BLOOD GLUCOSE TEST) test strip Test blood sugar(s) 1-2 times daily or as directed. Dx: Type 2 DM - Controlled E11.9 Insulin: No - Blood-Glucose Meter monitoring kit Glucose Meter of Choice (per insurance coverage)- Kit - Dx: Type 2 DM - Controlled E11.9, Test 1-2 times a day or as directed. No insulin Problem List As Of Date 05/28/2024 Noted Resolved PURE HYPERCHOLESTEROLEM [E78.00] DIVERTICULOSIS OF COLON W/O BLEED [K57.30] Dysthymic disorder [F34.1] 01/03/2021 PAIN HIP JOINT [M25.559] (more content not included)... Normal [facility] CNOVon 05-26-2024 CNOV Office Visit (ORNA ) DESTINEY OCAMPO ([id number]) 1950 M Date Time Provider Department 05/26/24 10:20 AM NAKUL MADDOX During your visit today, we recorded the following information about you: Nakul Maddox MD 05/26/2024 10:23 AM Signed Post-op Office Visit Destiney Ocampo 74 year old May 26, 2024 7:48 AM History: Destiney Ocampo Is now 6 week s/p right ABMS NIES Post-operative course has been without complication. no readmission/complicatio ns Subjective: Patient reports mild pain mostly at night . Overall is doing well. no ambulatory aid no opioid pain medication Objective: Ambulates with no device Incision well-approximated, no drainage, normal michelle-incisional erythema Arcs of motion at hip are comfortable and fluid Distally DP/PT palpable Distally S/S/SP/DP/T intact at baseline Distally DF/EHL/PF/KE intact at baseline Negative teresita/calf tenderness Xrays: No new today Assessment and Plan: Destiney Ocampo Is here for a second post-op appointment, overall doing well -continued ice, rest, and use of non-narcotic analgesia as needed -wean off ambulatory aids -discussed home exercises and therapy -WBAT on operative extremity -will see back at month appointment for clinical exam and post-op xrays--can see earlier if needed -discussed red flag symptoms of acutely increasing pain, new erythema, new swelling, drainage, shortness of breath Nakul Maddox MD Allergies As of Date: 05/26/2024 Noted Allergy Reaction LISINOPRIL 08/25/2012 3 - Cough Date Reviewed: 05/26/2024 Reviewed by: Liliane Linares LPN - Fully Assessed Reason for Visit: Established Patient [175] Pre-Op Visit [1235] Follow Up [171] Pain [78] Primary Visit Diagnosis:Status post right hip replacement [Z96.641] Order(s):predniSONE (DELTASONE) 2.5 mg tabletTake 1 tablet by mouth two times a day for 12 days.Disp: 24 tabletRfl: 0 Prescriptions as of 05/26/2024 - pantoprazole sodium (PANTOPRAZOLE ORAL) Take 40 mg by mouth two times a day. - predniSONE (DELTASONE) 2.5 mg tablet Take 1 tablet by mouth two times a day for 12 days. - Saccharomyces boulardii (FLORASTOR) 250 mg capsule Take 1 capsule by mouth two times a day. - polyethylene glycol 3350 17 gram/dose powder Drink a mix of 1 scoop in 8oz of water/beverage once daily as needed for constipation. May repeat once daily as needed. - atorvastatin (LIPITOR) 40 mg tablet Take 1 tablet by mouth once daily. - Magnesium 250 mg tab Take 1 tablet by mouth two times a day. - famotidine (PEPCID) 20 mg tablet Take 1 tablet by mouth at bedtime as needed. - aspirin, enteric coated (ASPIRIN, ENTERIC COATED) 81 mg EC tablet Take 1 tablet by mouth two times a day for 28 days. - magnesium oxide (MAG-OX) 400 mg (241.3 mg magnesium) tablet Take 1 tablet by mouth two times a day for 10 doses. - acetaminophen (TYLENOL) 500 mg tablet Take 2 tablets by mouth every 8 hours as needed for pain. - ascorbic acid, vitamin C, (VITAMIN C) 500 mg tablet Take 1 tablet by mouth two times a day with meals for 27 doses. - metFORMIN ER (GLUCOPHAGE XR) 500 mg 24 hr tablet Take 1 tablet by mouth two times a day with meals. with breakfast and dinner - cyanocobalamin, vitamin B-12, (VITAMIN B-12 ORAL) Take 1 tablet by mouth once daily. - FOLIC ACID ORAL Take 1 tablet by mouth once daily. - fluticasone propionate (FLONASE NASAL) Use 1 [place] in the nose two times a day as needed (congestion). Patient should start on April 11, 2024. - ketoconazole (NIZORAL) 2 % cream Apply 1 application to affected area two times a day. Continue for 1 week after rash resolves. - metoprolol succinate ER (TOPROL XL) 25 mg 24 hr tablet Take 1 tablet by mouth once daily. - omeprazole (PRILOSEC) 20 mg capsule Take 1 capsule by mouth two times a day. - nystatin (MYCOSTATIN) powder Apply 1 application to affected area four times daily. Continue to use for a week after rash resolves. Use as needed for recurrences - ENTRESTO 49-51 mg tablet Take 1 tablet by mouth two times a day. (getting from patient assistance) - Cholecalciferol, Vitamin D3, 50 mcg (2,000 unit) cap Take 1 capsule by mouth once daily. - COMPOUNDED PRESCRIPTION Generic Glucometer - I each 50 strips and lancets. Re: Diabetes mellitus controlled with hypoglycemia. - Lancets lancets Test blood sugar(s) 1-2 times daily or as directed. Dx: Type 2 DM - Controlled E11.9 Insulin: No - blood sugar diagnostic (BLOOD GLUCOSE TEST) test strip Test blood sugar(s) 1-2 times daily or as directed. Dx: Type 2 DM - Controlled E11.9 Insulin: No - Blood-Glucose Meter monitoring kit Glucose Meter of Choice (per insurance coverage)- Kit - Dx: Type 2 DM - Controlled E11.9, Test 1-2 times a day or as directed. No insulin Problem List As Of Date 05/26/2024 Noted Resolved PURE HYPERCHOLESTEROLEM [E78 (more content not included)... [facility] (INTMWS) DESTINEY OCAMPO ([id number]) 1950 M Date Time Provider Department 05/25/24 KEREN ARCE INTMWS During your visit today, we recorded the following information about you: Gogo Stinson LPN 05/25/2024 1:33 PM Signed Note from payer: TOREY Case: [id number], Status: Denied. Notification: Completed. Payer: Evon Electronic appeal: Not supported View History Notes Time User Attachment Attachment received from payer. 05/25/2024 1:22 PM Cchs, Rx Prioraut In Document Medication Being Authorized Saccharomyces boulardii (FLORASTOR) 250 mg capsule Take 1 capsule by mouth two times a day. Dispense: 60 capsule Refills: 2 Start: 05/18/2024 End: 08/16/2024 Class: Normal This order has been released to its destination. To be filled at: [email or web address] [address] [place] [address] - [phone] - [phone] Allergies As of Date: 05/25/2024 Noted Allergy Reaction LISINOPRIL 08/25/2012 3 - Cough Date Reviewed: 05/11/2024 Reviewed by: Rashid Grimes APRN.ELECTRIC LOCOMOTIVE CRANE OPERATOR - Fully Assessed Reason for Visit: Insurance Authorization [1693] Prescriptions as of 05/25/2024 - Saccharomyces boulardii (FLORASTOR) 250 mg capsule Take 1 capsule by mouth two times a day. - polyethylene glycol 3350 17 gram/dose powder Drink a mix of 1 scoop in 8oz of water/beverage once daily as needed for constipation. May repeat once daily as needed. - atorvastatin (LIPITOR) 40 mg tablet Take 1 tablet by mouth once daily. - Magnesium 250 mg tab Take 1 tablet by mouth two times a day. - famotidine (PEPCID) 20 mg tablet Take 1 tablet by mouth at bedtime as needed. - aspirin, enteric coated (ASPIRIN, ENTERIC COATED) 81 mg EC tablet Take 1 tablet by mouth two times a day for 28 days. - magnesium oxide (MAG-OX) 400 mg (241.3 mg magnesium) tablet Take 1 tablet by mouth two times a day for 10 doses. - acetaminophen (TYLENOL) 500 mg tablet Take 2 tablets by mouth every 8 hours as needed for pain. - ascorbic acid, vitamin C, (VITAMIN C) 500 mg tablet Take 1 tablet by mouth two times a day with meals for 27 doses. - metFORMIN ER (GLUCOPHAGE XR) 500 mg 24 hr tablet Take 1 tablet by mouth two times a day with meals. with breakfast and dinner - cyanocobalamin, vitamin B-12, (VITAMIN B-12 ORAL) Take 1 tablet by mouth once daily. - FOLIC ACID ORAL Take 1 tablet by mouth once daily. - fluticasone propionate (FLONASE NASAL) Use 1 [place] in the nose two times a day as needed (congestion). Patient should start on April 11, 2024. - ketoconazole (NIZORAL) 2 % cream Apply 1 application to affected area two times a day. Continue for 1 week after rash resolves. - metoprolol succinate ER (TOPROL XL) 25 mg 24 hr tablet Take 1 tablet by mouth once daily. - omeprazole (PRILOSEC) 20 mg capsule Take 1 capsule by mouth two times a day. - nystatin (MYCOSTATIN) powder Apply 1 application to affected area four times daily. Continue to use for a week after rash resolves. Use as needed for recurrences - ENTRESTO 49-51 mg tablet Take 1 tablet by mouth two times a day. (getting from patient assistance) - Cholecalciferol, Vitamin D3, 50 mcg (2,000 unit) cap Take 1 capsule by mouth once daily. - COMPOUNDED PRESCRIPTION Generic Glucometer - I each 50 strips and lancets. Re: Diabetes mellitus controlled with hypoglycemia. - Lancets lancets Test blood sugar(s) 1-2 times daily or as directed. Dx: Type 2 DM - Controlled E11.9 Insulin: No - blood sugar diagnostic (BLOOD GLUCOSE TEST) test strip Test blood sugar(s) 1-2 times daily or as directed. Dx: Type 2 DM - Controlled E11.9 Insulin: No - Blood-Glucose Meter monitoring kit Glucose Meter of Choice (per insurance coverage)- Kit - Dx: Type 2 DM - Controlled E11.9, Test 1-2 times a day or as directed. No insulin Problem List As Of Date 05/25/2024 Noted Resolved PURE HYPERCHOLESTEROLEM [E78.00] DIVERTICULOSIS OF COLON W/O BLEED [K57.30] Dysthymic disorder [F34.1] 01/03/2021 PAIN HIP JOINT [M25.559] 01/17/2006 DEPRESSION RECURRENT( Moderate) [F33.1] 01/17/2006 05/22/2023 SOMNOLENCE [R40.4] 01/17/2006 01/03/2021 Headache(784.0) [R51] 01/17/2006 11/21/2014 Abdominal pain, other specified site [R10.9] 12/17/2006 11/21/2014 Diaphragmatic hernia [K44.9] 04/24/2007 GASTRITIS ANTRAL( W/O Hemorrhage) [K29.60] 04/24/2007 11/21/2014 ESOPHAGITIS REFLUX [K21.00] 04/24/2007 HEMORRHOIDS INTERNAL [K64.8] 04/24/2007 11/21/2014 ACUTE GASTRITIS W/O HEMORRHAGE [K29.00] 04/24/2007 BENIGN NEOPLASM LG BOWEL [D12.6] 04/24/2007 Hypertension [I10] 07/24/2011 Trigger middle finger of right hand [M65.331] 08/29/2011 01/03/2021 Trigger index finger of right hand [M65.321] 08/29/2011 07/16/2016 Diabetes mellitus type 2, controlled, without c*08/15/2014 Neck pain [M54.2] 08/16/2014 Cervical radiculopathy [M54.12] 08/16/2014 Midline thoracic back pain [M54.6] (more content not included)... Normal [facility] Gastroenterology Visit Repor ton 05-24-2024 Gastroenterology Visit Report [facility]enter[facility] [address] [place] [address] OFFICE VISIT Date of Service: 05/24/24 MR#: [id number] Acct: [id number] Name: DESTINEY OCAMPO Rep #: [id number] : 1950 Provider: MIRA marin Age/Sex: 74/M [facility] Status: Signed Intake Vital Signs 11/10/23 08:27 Height 5 ft 7 in Weight: 215 lb BMI 33.6 BP 108/67 Respiration 16 Pulse 72 Pulse Oximetry (%) 97 Intake Visit Reasons: Gastritis Acquisitions Analyst Required: No Accompanied by: Allergies lisinopril Adverse Reaction (Verified 05/24/24 09:15) cough Medications ???Medication ???Instructions ???Recorded ???Confirmed ???Type atorvastatin 40 mg tablet 40 mg PO QHS 04/29/22 05/24/24 His tory metoprolol succinate 50 mg 25 mg PO QHS 04/29/22 05/24/24 His tory tablet,extended release 24 hr sacubitril 49 mg-valsartan 51 mg 1 tab PO BID 04/29/22 05/24/24 His tory tablet (Entresto) magnesium 250 mg tablet 250 mg PO DAILY 10/17/22 05/24/24 History aspirin 81 mg capsule 81 mg PO DAILY 10/30/22 05/24/24 H istory cholecalciferol (vitamin D3) 25 25 mcg PO DAILY 10/30/22 05/24/24 History mcg (1,000 unit) capsule (Vitamin D3) Lactobacillus acidophilus 20 100 mmu cells PO QDAY 05/24/2409/10 History billion cell capsule (Florajen Acidophilus) famotidine 20 mg tablet (Pepcid) 20 mg PO QDAY 05/24/24 05/24/24 Hi story folic acid 800 mcg tablet 0.8 mg PO QDAY 05/24/24 05/24/24 H istory mecobalamin (vitamin B12) 1,000 1,000 mcg PO QDAY 05/24/24 5 History mcg chewable tablet (B12 Active) metformin 500 mg tablet 250 mg PO QDAY 05/24/24 05/24/24 H istory pantoprazole 40 mg tablet,delayed 40 mg PO BID #60 tabs 05/24/24 Rx release venlafaxine 37.5 mg 75 mg PO QHS 05/24/24 History capsule,extended release 24 hr Have you fallen in the past year?: No Nurse's Note: Has been feeling better but not completely better yet. [facility] Medical History Cancer Depression Anxiety Alcohol use Diabetes Arthritis Kidney stones Fatty liver High cholesterol Excessive bleeding Back pain Injury of head and neck Loss of consciousness History of diverticulitis Gastric reflux Former smoker History of echocardiogram History of stress test Hypertension Cardiology follow-up encounter History of irregular heartbeat Chest pain Left rotator cuff tear Internal impingement of left shoulder Prostate cancer Left shoulder pain Surgical History History of cardiac catheterization Hx of colonoscopy Hx of prostatectomy Social History (Updated 11/10/23 @ 09:27 by Bren Jimenez) Smoking Status: Former smoker alcohol intake: current alcohol intake frequency: a few times a week substance use type: does not use what type of physical activity do you participate in: none HPI HPI Details: DESTINEY OCAMPO, is a 74 M who presents to the office today for establishment with [facility] for complaints of gastritis. Recent labs from 05.07.24: AlkPh 118, AST 13, amylase/lipase/CBC OK; c/o occasional heartburn with difficulty swallowing about once a week, takes omeprazole 20mg BID and just started taking famotidine; constipation-takes Miralax daily; HLD, DM-A1c 6.9. c/o LUQ pinch, takes Advil/Aleve frequently s/p right total hip replacement surgery 6 weeks ago. Last colonoscopy/EGD done more than 15 years ago, known gastritis. Former smoker and chronic ETOH use. Diet mostly consists of pasta, red meats and potatoes, limited dietary fiber intake. He reports excessive gas, bloating, and external hemorrhoids. He denies difficulty chewing, diarrhea, hematochezia, and melena. ROS Const Constitutional: Positive for fatigue; No chills, fever(s) or weight change Eyes Eyes: No blurry vision or change in vision ENT ENT: Positive for difficulty swallowing; No abnormal hearing Resp Respiratory: No cough Cardio Cardiology: No chest pain at rest, chest pain with exertion or leg pain with exertion Gastro GI: Positive for abdominal pain, bloating, constipation, heartburn, difficulty swallowing and excessive flatus; No belching, change in bowel habits, change in stool character, coffee ground emesis, cramping, diarrhea, feeling full early, incontinent of stools, Vomiting blood/hematemesis, Blood in stool, loose stools, Black,tarry stools, nausea/dyspepsia, pain with swallowing, vomiting or other Genitourinary Male: No difficulty urinating Musc Musculoskeletal: No abnormal gait, joint pain or leg pain with exertion Skin Skin: No yellowing of the eye or itchy eyes Neuro Neurology: No abnormal gait or abnormal hearing Psych Psychiatric: No anxiety and Positive for de (more content not included)... Normal [facility] 05-18-2024 [facility] Telephone (INTMWS) DESTINEY OCAMPO ([id number]) 1950 M Date Time Provider Department 05/18/24 KEREN ARCE INTMWS During your visit today, we recorded the following information about you: Sasha Kamara RN 05/18/2024 9:51 AM Signed Patient calling and states he saw Rashid العراقي last week and discussed his abdominal discomfort. Reports he has been taking the Pepcid as ordered but no improvement yet. Denies worsening sx's. Feels that he is having gastritis possibly. States he has been on recent antibiotic treatment and the medication has worsened his stomach issues. States he does not plan to see General Surgery until his hip heals more, as he is 6 weeks post left hip arthroplasty. Denies nausea, vomiting, fever. No changes in bowel function. 1) Pt asking if Rashid would send probiotic order to his pharmacy, if she feels this would help. 2) Asking if Rashid العراقي would recommend anything else at this time. CHRISTOPH Dumont Terri, APRN.CNS 05/18/2024 12:01 PM Signed If any constipation and current daily MiraLAX is not helping enough can increase to twice daily dosing. Will send probiotic to pharmacy. Juana Jenkins LPN 05/18/2024 1:41 PM Signed No answer. Left message for patient to call office and ask to speak to a nurse regarding current treatment of stomach issures Iza Colon LPN 05/18/2024 4:22 PM Signed Pt notified of provider message. Pt reports he is not having an issue with constipation but does need the probiotic. Iza Colon LPN Allergies As of Date: 05/18/2024 Noted Allergy Reaction LISINOPRIL 08/25/2012 3 - Cough Date Reviewed: 05/11/2024 Reviewed by: Rashid Grimes APRN.ELECTRIC LOCOMOTIVE CRANE OPERATOR - Fully Assessed Reason for Visit: Patient Update [1234] Order(s):Saccharomyces boulardii (FLORASTOR) 250 mg capsuleTake 1 capsule by mouth two times a day.Disp: 60 capsuleRfl: 2 polyethylene glycol 3350 17 gram/dose powderDrink a mix of 1 scoop in 8oz of water/beverage once daily as needed for constipation. May repeat once daily as needed.Disp: Rfl: Prescriptions as of 05/18/2024 - Saccharomyces boulardii (FLORASTOR) 250 mg capsule Take 1 capsule by mouth two times a day. - polyethylene glycol 3350 17 gram/dose powder Drink a mix of 1 scoop in 8oz of water/beverage once daily as needed for constipation. May repeat once daily as needed. - atorvastatin (LIPITOR) 40 mg tablet Take 1 tablet by mouth once daily. - Magnesium 250 mg tab Take 1 tablet by mouth two times a day. - famotidine (PEPCID) 20 mg tablet Take 1 tablet by mouth at bedtime as needed. - aspirin, enteric coated (ASPIRIN, ENTERIC COATED) 81 mg EC tablet Take 1 tablet by mouth two times a day for 28 days. - magnesium oxide (MAG-OX) 400 mg (241.3 mg magnesium) tablet Take 1 tablet by mouth two times a day for 10 doses. - acetaminophen (TYLENOL) 500 mg tablet Take 2 tablets by mouth every 8 hours as needed for pain. - ascorbic acid, vitamin C, (VITAMIN C) 500 mg tablet Take 1 tablet by mouth two times a day with meals for 27 doses. - metFORMIN ER (GLUCOPHAGE XR) 500 mg 24 hr tablet Take 1 tablet by mouth two times a day with meals. with breakfast and dinner - cyanocobalamin, vitamin B-12, (VITAMIN B-12 ORAL) Take 1 tablet by mouth once daily. - FOLIC ACID ORAL Take 1 tablet by mouth once daily. - fluticasone propionate (FLONASE NASAL) Use 1 [place] in the nose two times a day as needed (congestion). Patient should start on April 11, 2024. - ketoconazole (NIZORAL) 2 % cream Apply 1 application to affected area two times a day. Continue for 1 week after rash resolves. - metoprolol succinate ER (TOPROL XL) 25 mg 24 hr tablet Take 1 tablet by mouth once daily. - omeprazole (PRILOSEC) 20 mg capsule Take 1 capsule by mouth two times a day. - nystatin (MYCOSTATIN) powder Apply 1 application to affected area four times daily. Continue to use for a week after rash resolves. Use as needed for recurrences - ENTRESTO 49-51 mg tablet Take 1 tablet by mouth two times a day. (getting from patient assistance) - Cholecalciferol, Vitamin D3, 50 mcg (2,000 unit) cap Take 1 capsule by mouth once daily. - COMPOUNDED PRESCRIPTION Generic Glucometer - I each 50 strips and lancets. Re: Diabetes mellitus controlled with hypoglycemia. - Lancets lancets Test blood sugar(s) 1-2 times daily or as directed. Dx: Type 2 DM - Controlled E11.9 Insulin: No - blood sugar diagnostic (BLOOD GLUCOSE TEST) test strip Test blood sugar(s) 1-2 times daily or as directed. Dx: Type 2 DM - Controlled E11.9 Insulin: No - Blood-Glucose Meter monitoring kit Glucose Meter of Choice (per insurance coverage)- Kit - Dx: Type 2 DM - Controlled E11.9, Test 1-2 times a day or as directed. No insulin Problem List As Of Date 05/18/2024 Noted Resolved PURE HYPERCHOLESTEROLEM [E78.00] DIVERTICULOSIS OF COLON W/O BLEED [K5 (more content not included)... Normal [facility] CNOVon 05-11-2024 CNOV Office Visit (INTMWS ) DESTINEY OCAMPO ([id number]) 1950 M Date Time Provider Department 05/11/24 1:20 PM RASHID GRIMES During your visit today, we recorded the following information about you: Pulse Respiration Blood pressure Weight 75/minute 16/minute 109/71 93 kg Rashid Grimes APRN.ELECTRIC LOCOMOTIVE CRANE OPERATOR 05/11/2024 2:33 PM Signed Subjective Patient ID: Destiney is a 74 year old male who presents for F/U 6 Month. HPI Presents with , she helps with HPI. Destiney Ocampo is s/p left total hip arthroplsty Dr. Maddox 04/08/2024. Discharge to home with home health care 04/09/2024. Abdominal Pain: - Intermittent abdominal pain, described as a pinch in the soft part of the left upper abdomen, worse when lying on the left side. - Pain present before hip surgery, but worsened postoperatively. - Can elicit pain by palpating the area. - Denies hematochezia, melena, nausea, or emesis. - Occasional heartburn, approximately once a week, managed with omeprazole BID. - Recent blood work ordered by Dr. Naranjo urologist and reported to abdominal pain which he thought ws constipation related; amylase and lipase levels were normal. Hip Surgery Recovery: - Underwent hip surgery 5 weeks ago. - Recovery described as average, with ongoing pain at the surgical site. - Mobility improving; now using a cane. - No drainage from the surgical site. - Taking Advil and Aleve for pain management, ensuring intake with food. - Upcoming follow-up appointment with Dr. Maddox in about two weeks. Constipation: - Chronic constipation managed with Miralax, resulting in bowel movements every other day. - If Miralax is not taken, bowel movements may be delayed up to four days. Diabetes Mellitus: - Monitoring blood glucose levels at home daily or every other day before breakfast. - Recent blood glucose reading was 123 mg/dL. - Reports higher readings if consuming sweets before bedtime. Hyperlipidemia: - Managed with medication; unsure if current supply is sufficient. Memory Loss: - Reports persistent foggy feeling and difficulty with memory recall. - Extensive workup including CT, MRI, and evaluation at [facility] and [facility]. 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 - Neurology recommended neuropsychiatric testing, but Destiney declined further testing. DIABETES MELLITUS: Since our last visit he denies excessive thirst or increased frequency of urination, chest pain or dyspnea , numbness, tingling or pain in extremities, new or unusual visual symptoms, low sugar/hypoglycemic reactions, weight loss/gain, lightheadedness/dizzine ss, and bowel changes/loose stools. . Patient's last HgA1C was Hemoglobin A1C (%) Date Value 03/22/2024 6.9 01/30/2024 8.2 10/11/2020 7.5 02/11/2018 6.2 Hemoglobin A1C (POCT) (%) Date Value 06/26/2020 7.0 02/24/2019 7.1 ) Cardiomyopathy: Followed at [facility] Gastrointestinal: (+) left-sided abdominal pain, (+) occasional heartburn, (+) constipation, (-) nausea, (-) vomiting, (-) melena, (-) hematochezia Musculoskeletal: (+) hip pain Skin: (-) wound drainage Neurological: (+) memory impairment, (+) brain fog, (+) daytime sleepiness Objective BP 109/71 Pulse 75 Resp 16 Wt 93 kg (205 lb 0.4 oz) BMI 33.09 kg/m? Physical Exam Vitals and nursing note reviewed. Constitutional: Appearance: Normal appearance. HENT: Head: Normocephalic and atraumatic. Eyes: Conjunctiva/sclera: Conjunctivae normal. Neck: Thyroid: No thyromegaly. Vascular: Normal carotid pulses. No carotid bruit or JVD. Cardiovascular: Rate and Rhythm: Normal rate and regular rhythm. Pulses: Carotid pulses are 2+ on the right side and 2+ on the left side. Radial pulses are 2+ on the right side. Heart sounds: Normal heart sounds. Pulmonary: Effort: Pulmonary effort is normal. Breath sounds: Normal breath sounds. Abdominal: General: Bowel sounds are normal. Palpations: Abdomen is soft. Tenderness: There is abdominal tenderness (mild LUQ). Musculoskeletal: Right lower leg: No edema. Left lower leg: No edema. Skin: General: Skin is warm and dry. Neurological: General: No focal deficit present. Mental Status: He is alert. Latest Ref Rng 03/22/2024 05/07/2024 WBC 3.70 - 11.00 k/uL 8.32 9.58 RBC 4.20 - 6.00 m/uL 5.43 5.06 Hemoglobin 13.0 - 17.0 g/dL 14.7 13.6 Hematocrit 39.0 - 51.0 % 45.9 42.9 MCV 80.0 - 100.0 fL 84.5 84.8 MCH 26.0 - 34.0 pg 27.1 26.9 MCHC 30.5 - 36.0 g/dL 32.0 31.7 RDW-CV 11.5 - 15.0 % 13.1 13.8 Platelet Count 150 - 400 k/uL 144 (L) 196 MPV 9.0 - 12.7 fL 11.6 11.4 Neut% % 58.3 Abs Neut (ANC) 1.45 - 7.50 k/uL 4.85 Lymph% % 29.1 Abs Lymph 1.00 - 4.00 k/uL 2.42 O'Brien% % 6.6 Abs O'Brien <0.87 k/uL 0.55 Eosin% % 5.0 Abs Eosin <0.46 k/uL 0.42 Baso% % 0.6 Abs Baso <0.11 k/uL 0.05 Immature Gr (more content not included)... Normal [facility] Amylase SerPl-cCncon 025 Amylase [Catalytic activity/Vol] 43 U/L Normal 30-104 [facility] Comment on above: Order Comment: Speci men Type: BLOOD SPECIMENOrdering Facility: [facility] Address: [facility] [place] [address] Performed By: #### 3 040-3, 1798-8 ####[facility] LABCLIA [id number] [place] [address] [place] CBC panel Auto (Bld)on 05-07 Erythrocyte distribution width (RBC) [Ratio] 13.8 % 11.5 - 15.0 % [facility] Hematocrit (Bld) [Volume fraction] 42.9 % 39.0 - 51.0 % [facility] Hemoglobin (Bld) [Mass/Vol] 13.6 g/dL 13.0 - 17.0 g/dL [facility] Interpretation and review of laboratory results Normal [facility] MCH (RBC) [Entitic mass] 26.9 pg 26.0 - 34.0 pg [facility] MCHC (RBC) [Mass/Vol] 31.7 g/dL 30.5 - 36.0 g/dL [facility] MCV (RBC) [Entitic vol] 84.8 fL 80.0 - 100.0 fL [facility] Nucleated RBC (Bld) [#/Vol] NINF [facility] Platelet mean volume (Bld) [Entitic vol] 11.4 fL 9.0 - 12.7 fL [facility] Platelets (Bld) [#/Vol] 196 10*3/uL [facility] RBC (Bld) [#/Vol] 5.06 10*6/uL 4.20 - 6.0 0 m/uL [facility] WBC (Bld) [#/Vol] 9.58 10*3/uL [facility] Erythrocyte distribution width (RBC) [Ratio] 13.8 % Normal 11.5-15.0 [facility] Comment on above: Order Comment: Speci men Type: BLOOD SPECIMENOrdering Facility: [facility] Address: [address] [place] [address] Performed By: #### 5 8410-2 ####[facility] [id number] [place] [address] [place] Hematocrit (Bld) [Volume fraction] 42.9 % Normal 39.0-51.0 [facility] Comment on above: Order Comment: Speci men Type: BLOOD SPECIMENOrdering Facility: [facility] Address: [address] [place], [place] [address] Performed By: #### 5 8410-2 ####[facility] [id number] [place] [address] [place] Hemoglobin (Bld) [Mass/Vol] 13.6 g/dL Normal 13.0-17.0 [facility] Comment on above: Order Comment: Speci men Type: BLOOD SPECIMENOrdering Facility: [facility] Address: [address] [place] [address] Performed By: #### 5 8410-2 ####[facility] DANELLELIA [id number] [place] [address] [place] [facility] MCH (RBC) [Entitic mass] 26.9 pg Normal 26.0-34.0 [facility] Comment on above: Order Comment: Speci men Type: BLOOD SPECIMENOrdering Facility: [facility] Address: [address] [place] [address] Performed By: #### 5 8410-2 ####[facility] [id number] [place] [address] [place] MCHC (RBC) [Mass/Vol] 31.7 g/dL Normal 30.5-36.0 [facility] Comment on above: Order Comment: Speci men Type: BLOOD SPECIMENOrdering Facility: [facility] Address: [address] [place] [address] Performed By: #### 5 8410-2 ####[facility] [id number] [place] [address] [place] MCV (RBC) [Entitic vol] 84.8 fL Normal 80.0-100.0 [facility] Comment on above: Order Comment: Speci men Type: BLOOD SPECIMENOrdering Facility: [facility] Address: [address] [place] [address] Performed By: #### 5 8410-2 ####[facility] [id number] [place] [address] [place] Nucleated RBC (Bld) [#/Vol] 10*3/uL Normal <0.01 [facility] Comment on above: Order Comment: Speci men Type: BLOOD SPECIMENOrdering Facility: [facility] Address: [address] [place] [address] Performed By: #### 5 8410-2 ####[facility] [id number] [place] [address] [place] Platelet mean volume (Bld) [Entitic vol] 11.4 fL Normal 9.0-12.7 [facility] Comment on above: Order Comment: Speci men Type: BLOOD SPECIMENOrdering Facility: [facility] Address: [address] [place] [address] Performed By: #### 5 8410-2 ####[facility] LIVIERARBOLESLINDALIA [id number] [place] [address] [place] Platelets (Bld) [#/Vol] 196 10*3/uL Normal 150-400 [facility] Comment on above: Order Comment: Speci men Type: BLOOD SPECIMENOrdering Facility: [facility] Address: [address] [place] [address] Performed By: #### 5 8410-2 ####[facility]ITALANA[facility]EL[facility] [id number] [place] [address] [place] RBC (Bld) [#/Vol] 5.06 10*6/uL Normal 4.20-6.00 [facility] Comment on above: Order Comment: Speci men Type: BLOOD SPECIMENOrdering Facility: [facility] Address: [address] [place] [address] Performed By: #### 5 8410-2 ####[facility] [id number] [place] [address] [place] WBC (Bld) [#/Vol] 9.58 10*3/uL Normal 3.70-11.00 [facility] Comment on above: Order Comment: Speci men Type: BLOOD SPECIMENOrdering Facility: [facility] Address: [address] [place] [address] Performed By: #### 5 8410-2 ####[facility]ITALNCLIA [id number] [address] [place] Renee 05-07-2024 CNPN Telephone (ORMDNA) DESTINEY OCAMPO ([id number]) 1950 M Date Time Provider Department 05/07/24 NAKUL MADDOX ORODALYS During your visit today, we recorded the following information about you: Katie Carolina, RN 05/07/2024 10:33 AM Signed Patient called with concern that he is still having pain and swelling from hip replacement 4 weeks ago. Explained it is not unusual to experience these symptoms for 3-6 months. He had been comparing with his friends in conversation and was told he should be fine at this time. Again explained this is normal, people heal differently. Advised to continue small walks, do not increase activity at this time, rest, ice and elevate. Suggested taking NSAID for the next week, if it helps continue for another week until he sees Dr Maddox for his 6 week f/u. Can discuss further at that time. Patient verbalized understanding. Allergies As of Date: 05/07/2024 Noted Allergy Reaction LISINOPRIL 08/25/2012 3 - Cough Date Reviewed: 04/28/2024 Reviewed by: Gwen Fox, PT - Fully Assessed Prescriptions as of 05/07/2024 - aspirin, enteric coated (ASPIRIN, ENTERIC COATED) 81 mg EC tablet Take 1 tablet by mouth two times a day for 28 days. - magnesium oxide (MAG-OX) 400 mg (241.3 mg magnesium) tablet Take 1 tablet by mouth two times a day for 10 doses. - docusate sodium (COLACE) 100 mg capsule Take 1 capsule by mouth two times a day as needed for constipation. - acetaminophen (TYLENOL) 500 mg tablet Take 2 tablets by mouth every 8 hours as needed for pain. - ascorbic acid, vitamin C, (VITAMIN C) 500 mg tablet Take 1 tablet by mouth two times a day with meals for 27 doses. - metFORMIN ER (GLUCOPHAGE XR) 500 mg 24 hr tablet Take 1 tablet by mouth two times a day with meals. with breakfast and dinner - cyanocobalamin, vitamin B-12, (VITAMIN B-12 ORAL) Take 1 tablet by mouth once daily. - FOLIC ACID ORAL Take 1 tablet by mouth once daily. - fluticasone propionate (FLONASE NASAL) Use 1 [place] in the nose two times a day as needed (congestion). Patient should start on April 11, 2024. - ketoconazole (NIZORAL) 2 % cream Apply 1 application to affected area two times a day. Continue for 1 week after rash resolves. - metoprolol succinate ER (TOPROL XL) 25 mg 24 hr tablet Take 1 tablet by mouth once daily. - omeprazole (PRILOSEC) 20 mg capsule Take 1 capsule by mouth two times a day. - nystatin (MYCOSTATIN) powder Apply 1 application to affected area four times daily. Continue to use for a week after rash resolves. Use as needed for recurrences - ENTRESTO 49-51 mg tablet Take 1 tablet by mouth two times a day. (getting from patient assistance) - famotidine (PEPCID) 20 mg tablet Take 1 tablet by mouth at bedtime as needed. - Magnesium 250 mg tab Take 1 tablet by mouth two times a day. - Cholecalciferol, Vitamin D3, 50 mcg (2,000 unit) cap Take 1 capsule by mouth once daily. - atorvastatin (LIPITOR) 40 mg tablet TAKE 1 TABLET BY MOUTH EVERY DAY FOR 90 DAYS - COMPOUNDED PRESCRIPTION Generic Glucometer - I each 50 strips and lancets. Re: Diabetes mellitus controlled with hypoglycemia. - Lancets lancets Test blood sugar(s) 1-2 times daily or as directed. Dx: Type 2 DM - Controlled E11.9 Insulin: No - blood sugar diagnostic (BLOOD GLUCOSE TEST) test strip Test blood sugar(s) 1-2 times daily or as directed. Dx: Type 2 DM - Controlled E11.9 Insulin: No - Blood-Glucose Meter monitoring kit Glucose Meter of Choice (per insurance coverage)- Kit - Dx: Type 2 DM - Controlled E11.9, Test 1-2 times a day or as directed. No insulin Problem List As Of Date 05/07/2024 Noted Resolved PURE HYPERCHOLESTEROLEM [E78.00] DIVERTICULOSIS OF COLON W/O BLEED [K57.30] Dysthymic disorder [F34.1] 01/03/2021 PAIN HIP JOINT [M25.559] 01/17/2006 DEPRESSION RECURRENT( Moderate) [F33.1] 01/17/2006 05/22/2023 SOMNOLENCE [R40.4] 01/17/2006 01/03/2021 Headache(784.0) [R51] 01/17/2006 11/21/2014 Abdominal pain, other specified site [R10.9] 12/17/2006 11/21/2014 Diaphragmatic hernia [K44.9] 04/24/2007 GASTRITIS ANTRAL( W/O Hemorrhage) [K29.60] 04/24/2007 11/21/2014 ESOPHAGITIS REFLUX [K21.00] 04/24/2007 HEMORRHOIDS INTERNAL [K64.8] 04/24/2007 11/21/2014 ACUTE GASTRITIS W/O HEMORRHAGE [K29.00] 04/24/2007 BENIGN NEOPLASM LG BOWEL [D12.6] 04/24/2007 Hypertension [I10] 07/24/2011 Trigger middle finger of right hand [M65.331] 08/29/2011 01/03/2021 Trigger index finger of right hand [M65.321] 08/29/2011 07/16/2016 Diabetes mellitus type 2, controlled, without c*08/15/2014 Neck pain [M54.2] 08/16/2014 Cervical radiculopathy [M54.12] 08/16/2014 Midline thoracic back pain [M54.6] 09/01/2014 Neck pain on left side [M54.2] 09/01/2014 01/03/2021 Numbness and tingling of right upper extremity *09/01/2014 Numbness and tingling in left upper extremity [*09/01/2014 (more content not included)... Normal [facility] Comprehensive metabolic 2000 panelOrdered By: Eliza Jenkins on 05-07-2024 Albumin [Mass/Vol] 4.4 g/dL 3.9 - 4.9 g/dL [facility] ALP [Catalytic activity/Vol] 118 U/L High 38 - 113 U/L [facility] ALT [Catalytic activity/Vol] 11 U/L 10 - 54 U/L [facility] Anion gap [Moles/Vol] 12 mmol/L 8 - 15 mmol/L [facility] AST [Catalytic activity/Vol] 13 U/L Low 14 - 40 U/L [facility] Bilirubin [Mass/Vol] 0.7 mg/dL 0.2 - 1 .3 mg/dL [facility] Calcium [Mass/Vol] 10 mg/dL 8.5 - 10. 2 mg/dL [facility] Chloride [Moles/Vol] 103 mmol/L 98 - 10 7 mmol/L [facility] CO2 [Moles/Vol] 28 mmol/L 22 - 30 mmol/L [facility] Creatinine [Mass/Vol] 0.69 mg/dL Low 0.73 - 1.22 mg/dL [facility] GFR/1.73 sq M.predicted among non-blacks MDRD (S/P/Bld) [Vol rate/Area] 98 mL/min/{1.73_m2} - PINF [facility] Comment on above: Estimated Glomerular Filtration Rate (eGFR) is calculated using the 2020 CKD-EPI creatinine equation. This equation utilizes serum creatinine, sex, and age as parameters. The creatinine assay has traceable calibration to isotope dilution-mass spectrometry. Refer to KDIGO guidelines for clinical interpretation. In patients with unstable renal function, e.g. those with acute kidney injury, the eGFR may not accurately reflect actual GFR. Glucose [Mass/Vol] 126 mg/dL High 74 - 99 mg/dL [facility] Comment on above: The [place] Diabete s Association (ADA) provides guidance for cutoff values for fasting glucose and random glucose. The ADA defines fasting as no caloric intake for at least 8 hours. Fasting plasma glucose results between 100 to 125 mg/dL indicate increased risk for diabetes (prediabetes). Fasting plasma glucose results greater than or equal to 126 mg/dL meet the criteria for diagnosis of diabetes. In the absence of unequivocal hyperglycemia, results should be confirmed by repeat testing. In a patient with classic symptoms of hyperglycemia or hyperglycemic crisis, random plasma glucose results greater than or equal to 200 mg/dL meet the criteria for diagnosis of diabetes. Reference: Standards of Medical Care in Diabetes 2016, [place] Diabetes Association. Diabetes Care. 2016.39(Suppl 1). Interpretation and review of laboratory results Abnormal [facility] Potassium [Moles/Vol] 4.6 mmol/L 3.7 - 5.1 mmol/L [facility] Protein [Mass/Vol] 7.2 g/dL 6.3 - 8.0 g/dL [facility] Sodium [Moles/Vol] 143 mmol/L 136 - 144 mmol/L [facility] Urea nitrogen [Mass/Vol] 15 mg/dL 9 - 24 mg/dL [facility] Comprehensive metabolic 2000 panelon 05-07-2024 Albumin [Mass/Vol] 4.4 g/dL Normal 3.9-4.9 [facility] Comment on above: Order Comment: Speci men Type: BLOOD SPECIMENOrdering Facility: [facility] Address: [address] [place] [address] Performed By: #### 2 4323-8 ####[facility] AYSHA MILLTOWNCLIA [id number] [place] [address] [place] ALP [Catalytic activity/Vol] 118 U/L High 38-113 [facility] Comment on above: Order Comment: Speci men Type: BLOOD SPECIMENOrdering Facility: [facility] Address: [address] [place] [address] Performed By: #### 2 4323-8 ####[facility] MILLTOWNCLIA [id number] [place] [address] [place] ALT [Catalytic activity/Vol] 11 U/L Normal 10-54 [facility] Comment on above: Order Comment: Speci men Type: BLOOD SPECIMENOrdering Facility: [facility] Address: [address] [place] [address] Performed By: #### 2 4323-8 ####[facility] AYSHA MILLTOWNCLIA [id number] [place] [address] [place] Anion gap [Moles/Vol] 12 mmol/L Normal 8-15 [facility] Comment on above: Order Comment: Speci men Type: BLOOD SPECIMENOrdering Facility: [facility] Address: [address] [place] [address] Performed By: #### 2 4323-8 ####[facility] AYSHA MILLTOWNCLIA [id number] [place] [address] [place] AST [Catalytic activity/Vol] 13 U/L Low 14-40 [facility] Comment on above: Order Comment: Speci men Type: BLOOD SPECIMENOrdering Facility: [facility] Address: [address] [place] [address] Performed By: #### 2 4323-8 ####[facility] PORT ORANGEWNCLIA [id number] [place] [address] [place] Bilirubin [Mass/Vol] 0.7 mg/dL Normal 0.2-1.3 [facility] Comment on above: Order Comment: Speci men Type: BLOOD SPECIMENOrdering Facility: [facility] Address: [address] [place] [address] Performed By: #### 2 4323-8 ####[facility]PITALL[facility]AL[facility] [id number] [place] [address] [place] Calcium [Mass/Vol] 10.0 mg/dL Normal 8.5-10.2 [facility] Comment on above: Order Comment: Speci men Type: BLOOD SPECIMENOrdering Facility: [facility] Address: [address] [place] [address] Performed By: #### 2 4323-8 ####[facility]PITALNCLIA [id number] [place] [address] [place] Chloride [Moles/Vol] 103 mmol/L Normal 98-107 [facility] Comment on above: Order Comment: Speci men Type: BLOOD SPECIMENOrdering Facility: [facility] Address: [address] [place] [address] Performed By: #### 2 4323-8 ####[facility] AYSHAUNIVERSITY OF VERMONT MEDICAL CENTERNCLIA [id number] [place] [address] [place] CO2 [Moles/Vol] 28 mmol/L Normal 22-30 [facility] Comment on above: Order Comment: Speci men Type: BLOOD SPECIMENOrdering Facility: [facility] Address: [address] [place] [address] Performed By: #### 2 4323-8 ####[facility] LIVIERELBOW LAKE MEDICAL CENTERVladimir [id number] [place] [address] [place] Creatinine [Mass/Vol] 0.69 mg/dL Low 0.73-1.22 [facility] Comment on above: Order Comment: Speci men Type: BLOOD SPECIMENOrdering Facility: [facility] Address: [address] [place] [address] Performed By: #### 2 4323-8 ####[facility] [id number] [place] [address] [place] Creatinine and Glomerular filtration rate.predicted panel (S/P/Bld) 98 mL/min/1.73m??? Normal >=60 [facility] Comment on above: Order Comment: Speci men Type: BLOOD SPECIMENOrdering Facility: [facility] Address: [address] [place] [address] Result Comment: Kemi mated Glomerular Filtration Rate (eGFR) is calculated using the 2020 CKD-EPI creatinine equation. This equation utilizes serum creatinine, sex, and age as parameters. The creatinine assay has traceable calibration to isotope dilution-mass spectrometry. Refer to KDIGO guidelines for clinical interpretation. In patients with unstable renal function, e.g. those with acute kidney injury, the eGFR may not accurately reflect actual GFR. Performed By: #### 2 4323-8 ####[facility] HOSPITALNCLI [id number] [place] [address] [place] Glucose [Mass/Vol] 126 mg/dL High 74-99 [facility] Comment on above: Order Comment: Speci men Type: BLOOD SPECIMENOrdering Facility: [facility] Address: [address] [place] [address] Result Comment: The [place] Diabetes Association (ADA) provides guidance for cutoff values for fasting glucose and random glucose. The ADA defines fasting as no caloric intake for at least 8 hours. Fasting plasma glucose results between 100 to 125 mg/dL indicate increased risk for diabetes (prediabetes). Fasting plasma glucose results greater than or equal to 126 mg/dL meet the criteria for diagnosis of diabetes. In the absence of unequivocal hyperglycemia, results should be confirmed by repeat testing. In a patient with classic symptoms of hyperglycemia or hyperglycemic crisis, random plasma glucose results greater than or equal to 200 mg/dL meet the criteria for diagnosis of diabetes. Reference: Standards of Medical Care in Diabetes 2016, [place] Diabetes Association. Diabetes Care. 2016.39(Suppl 1). Performed By: #### 2 4323-8 ####[facility] MILLTOWNCLIA [id number] [place] [address] [place] Potassium [Moles/Vol] 4.6 mmol/L Normal 3.7-5.1 [facility] Comment on above: Order Comment: Speci men Type: BLOOD SPECIMENOrdering Facility: [facility] Address: [address] [place] [address] Performed By: #### 2 4323-8 ####[facility]EL[facility] [id number] [place] [address] [place] Protein [Mass/Vol] 7.2 g/dL Normal 6.3-8.0 [facility] Comment on above: Order Comment: Speci men Type: BLOOD SPECIMENOrdering Facility: [facility] Address: [address] [place] [address] Performed By: #### 2 4323-8 ####[facility] MILLWNCLIA [id number] [place] [address] [place] Sodium [Moles/Vol] 143 mmol/L Normal 136-144 [facility] Comment on above: Order Comment: Speci men Type: BLOOD SPECIMENOrdering Facility: [facility] Address: [address] [place], [place] [address] Performed By: #### 2 4323-8 ####[facility] MILLTOWNCLIA [id number] [place] [address] [place] Urea nitrogen [Mass/Vol] 15 mg/dL Normal 9-24 [facility] Comment on above: Order Comment: Speci men Type: BLOOD SPECIMENOrdering Facility: [facility] Address: [address] [place] [address] Performed By: #### 2 4323-8 ####[facility] HOS[facility]ITALNCLIA [id number] [place] [address] [place] Lipase SerPl-cCncon 05-08-19 25 Lipase [Catalytic activity/Vol] 21 U/L Normal 16-61 [facility] Comment on above: Order Comment: Speci men Type: BLOOD SPECIMENOrdering Facility: [facility] Address: [address] [place] [address] Performed By: #### 3 040-3, 1798-8 ####[facility] LABCLIA [id number] [address] [place] CNPNon 05-06-2024 CNPN Telephone (INTMWS) DESTINEY OCAMPO ([id number]) 1950 M Date Time Provider Department 05/06/24 KEREN ARCE INTMWS During your visit today, we recorded the following information about you: Mansi Hardy 05/06/2024 10:33 AM Signed Pt's came in and stated that patients urologist Dr. Youssef wanted him to have labs.. indicated that she would perfer if Dr. Arce placed labs? CBC, CMP, Amylase, Lipase. Please advise Juana Jenkins LPN 05/06/2024 2:17 PM Signed Labs pending if appropriate. Hannah Cotton, RN 05/07/2024 9:04 AM Signed Spouse calls to check on status of labs that were requested. Notified pending review. Spouse wants them available for 6 month follow up appt with provider on 05/11/2024. Patient is seeing Rashid Grimes. Pat requesting to be sent to Rashid for review and orders to be placed. CHRISTOPH Alegre Terri, INTEGRATION MANAGER.ELECTRIC LOCOMOTIVE CRANE OPERATOR 05/07/2024 9:17 AM Signed Juana Mccullough LPN 05/07/2024 9:27 AM Signed Patient notified that labs have been placed Allergies As of Date: 05/06/2024 Noted Allergy Reaction LISINOPRIL 08/25/2012 3 - Cough Date Reviewed: 04/28/2024 Reviewed by: Gwen Fox, PT - Fully Assessed Reason for Visit: Orders [681] Primary Visit Diagnosis:Gastroesophag eal reflux disease with esophagitis without hemorrhage [K21.00] Other Visit Diagnoses:Controlled type 2 diabetes mellitus without complication, without long-term current use of insulin (HCC) [E11.9] Pure hypercholesterolemia [E78.00] Primary hypertension [I10] Coronary artery 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 angina pectoris [I25.10] Order(s):COMPLETE BLOOD COUNT [SQCBC] Order #: [id number] FUTURE COMPREHENSIVE METABOLIC PANEL [SQCMP] Order #: [id number] FUTURE AMYLASE [SQAMYL] Order #: [id number] FUTURE LIPASE [SQLIPA] Order #: [id number] FUTURE Prescriptions as of 05/07/2024 - aspirin, enteric coated (ASPIRIN, ENTERIC COATED) 81 mg EC tablet Take 1 tablet by mouth two times a day for 28 days. - magnesium oxide (MAG-OX) 400 mg (241.3 mg magnesium) tablet Take 1 tablet by mouth two times a day for 10 doses. - docusate sodium (COLACE) 100 mg capsule Take 1 capsule by mouth two times a day as needed for constipation. - acetaminophen (TYLENOL) 500 mg tablet Take 2 tablets by mouth every 8 hours as needed for pain. - ascorbic acid, vitamin C, (VITAMIN C) 500 mg tablet Take 1 tablet by mouth two times a day with meals for 27 doses. - metFORMIN ER (GLUCOPHAGE XR) 500 mg 24 hr tablet Take 1 tablet by mouth two times a day with meals. with breakfast and dinner - cyanocobalamin, vitamin B-12, (VITAMIN B-12 ORAL) Take 1 tablet by mouth once daily. - FOLIC ACID ORAL Take 1 tablet by mouth once daily. - fluticasone propionate (FLONASE NASAL) Use 1 [place] in the nose two times a day as needed (congestion). Patient should start on April 11, 2024. - ketoconazole (NIZORAL) 2 % cream Apply 1 application to affected area two times a day. Continue for 1 week after rash resolves. - metoprolol succinate ER (TOPROL XL) 25 mg 24 hr tablet Take 1 tablet by mouth once daily. - omeprazole (PRILOSEC) 20 mg capsule Take 1 capsule by mouth two times a day. - nystatin (MYCOSTATIN) powder Apply 1 application to affected area four times daily. Continue to use for a week after rash resolves. Use as needed for recurrences - ENTRESTO 49-51 mg tablet Take 1 tablet by mouth two times a day. (getting from patient assistance) - famotidine (PEPCID) 20 mg tablet Take 1 tablet by mouth at bedtime as needed. - Magnesium 250 mg tab Take 1 tablet by mouth two times a day. - Cholecalciferol, Vitamin D3, 50 mcg (2,000 unit) cap Take 1 capsule by mouth once daily. - atorvastatin (LIPITOR) 40 mg tablet TAKE 1 TABLET BY MOUTH EVERY DAY FOR 90 DAYS - COMPOUNDED PRESCRIPTION Generic Glucometer - I each 50 strips and lancets. Re: Diabetes mellitus controlled with hypoglycemia. - Lancets lancets Test blood sugar(s) 1-2 times daily or as directed. Dx: Type 2 DM - Controlled E11.9 Insulin: No - blood sugar diagnostic (BLOOD GLUCOSE TEST) test strip Test blood sugar(s) 1-2 times daily or as directed. Dx: Type 2 DM - Controlled E11.9 Insulin: No - Blood-Glucose Meter monitoring kit Glucose Meter of Choice (per insurance coverage)- Kit - Dx: Type 2 DM - Controlled E11.9, Test 1-2 times a day or as directed. No insulin Problem List As Of Date 05/06/2024 Noted Resolved PURE HYPERCHOLESTEROLEM [E78.00] DIVERTICULOSIS OF COLON W/O BLEED [K57.30] Dysthymic disorder [F34.1] 01/03/2021 PAIN HIP JOINT [M25.559] 01/17/2006 DEPRESSION RECURRENT( Moderate) [F33.1] 01/17/2006 05/22/2023 SOMNOLENCE [R40.4] 01/17/2006 01/03/2021 Headache(784.0) [R51] 01/17/2006 11/21/2014 Abdominal pain, other specified site [R10.9] 12/17/2006 11/21/2014 Diaph (more content not included)... Normal [facility] PSA,Total- Diagnosticon 04-17 PSA, DIAGNOSTIC 0.04 ng/mL Normal 0.00-4.00 [facility] Comment on above: Result Comment: This test was performed using the Carlin Ranker tPSA method. Measured values of a patient??sample can vary depending on the testing procedure used. PSA values determined on patient samples by different testing procedures cannot be used interchangeably. If there is a change in PSA assays while monitoring therapy, sequential testing should be performed to confirm baseline values. Performed By: #### L 501.9940 #### [facility] Laboratory [facility] [place], [address] 102on 04-23-2024 102 HNO ID: [id number] Author: CAPO CARRANZA HDA Service: ? Author Type: ? Type: 102 Filed: 04/23/2024 11:01 Note Text: Code Status: Full Code Normal [facility] CNNURSEon 04-22-2024 CNNURSE Nurse Visit (ORMDNA) DESTINEY OCAMPO ([id number]) 1950 M Date Time Provider Department 04/22/24 11:00 AM KATIE CAROLINA During your visit today, we recorded the following information about you: Katie Carolina RN 04/22/2024 11:20 AM Signed Post-op Office Visit Destiney Ocampo 74 year old April 22, 2024 10:38 AM Surgery Date: 04/08/24 History: Destiney Ocampo Is now 2 weeks out from right Anterior-Based INES. Post-operative course has been without complication. No readmission/complicatio ns Subjective: Patient reports 4/10 pain. Overall is doing well. + ambulatory aid Oxycodone opioid pain medication Objective: Ambulates with walker. Incision well-approximated, no drainage, normal michelle-incisional erythema Full ROM not tested do to early post-operative period, but smaller arcs of motion fluid and comfortable Distally DP/PT palpable Distally S/S/SP/DP/T intact at baseline Distally DF/EHL/PF intact at baseline Negative teresita/calf tenderness Xrays: Well aligned total hip replacement in appropriate position with no evidence of loosening. Assessment and Plan: Destiney Ocampo is here for a first post-op appointment, overall doing well. Patient is accompanied by . -continued ice, rest, and use of non-narcotic analgesia as needed -wean off ambulatory aids -discussed home exercises and therapy -WBAT on operative extremity -reinforced posterior precautions through 8 weeks: avoid extremes of flexion, internal rotation, and adduction -continue ankle pumps and dvt ppx through 4 weeks -discussed driving requirement: 4 weeks post-op, off narcotic pain medication, adequate brake time -will see back at 6 week appointment for clinical exam -discussed red flag symptoms of acutely increasing pain, new erythema, new swelling, drainage, shortness of breath Katie Carolina RN (Under Nakul Maddox MD) Orthopaedic Surgery Allergies As of Date: 04/22/2024 Noted Allergy Reaction LISINOPRIL 08/25/2012 3 - Cough Date Reviewed: 04/22/2024 Reviewed by: Katie Carolina RN - Fully Assessed Reason for Visit: Post Op [174] Hip Replacement [324] Primary Visit Diagnosis:Status post right hip replacement [Z96.641] Prescriptions as of 04/22/2024 - oxyCODONE IR (ROXICODONE) 5 mg immediate release tablet Take 1-2 tablets by mouth every 6 hours as needed for pain for up to 7 days. - aspirin, enteric coated (ASPIRIN, ENTERIC COATED) 81 mg EC tablet Take 1 tablet by mouth two times a day for 28 days. - magnesium oxide (MAG-OX) 400 mg (241.3 mg magnesium) tablet Take 1 tablet by mouth two times a day for 10 doses. - docusate sodium (COLACE) 100 mg capsule Take 1 capsule by mouth two times a day as needed for constipation. - meloxicam (MOBIC) 7.5 mg tablet Take 1 tablet by mouth once daily for 14 days. - acetaminophen (TYLENOL) 500 mg tablet Take 2 tablets by mouth every 8 hours as needed for pain. - ascorbic acid, vitamin C, (VITAMIN C) 500 mg tablet Take 1 tablet by mouth two times a day with meals for 27 doses. - cefADROxil (DURICEF) 500 mg capsule Take 1 capsule by mouth every 12 hours for 14 days. - polyethylene glycol 3350 (MIRALAX) 17 gram/dose powder Take 17 g by mouth once daily as needed for constipation for up to 10 days. Dissolve dose in 4 - 8 ounces of liquid and take as directed. - metFORMIN ER (GLUCOPHAGE XR) 500 mg 24 hr tablet Take 1 tablet by mouth two times a day with meals. with breakfast and dinner - cyanocobalamin, vitamin B-12, (VITAMIN B-12 ORAL) Take 1 tablet by mouth once daily. - FOLIC ACID ORAL Take 1 tablet by mouth once daily. - fluticasone propionate (FLONASE NASAL) Use 1 [place] in the nose two times a day as needed (congestion). Patient should start on April 11, 2024. - ketoconazole (NIZORAL) 2 % cream Apply 1 application to affected area two times a day. Continue for 1 week after rash resolves. - metoprolol succinate ER (TOPROL XL) 25 mg 24 hr tablet Take 1 tablet by mouth once daily. - omeprazole (PRILOSEC) 20 mg capsule Take 1 capsule by mouth two times a day. - nystatin (MYCOSTATIN) powder Apply 1 application to affected area four times daily. Continue to use for a week after rash resolves. Use as needed for recurrences - ENTRESTO 49-51 mg tablet Take 1 tablet by mouth two times a day. (getting from patient assistance) - famotidine (PEPCID) 20 mg tablet Take 1 tablet by mouth at bedtime as needed. - Magnesium 250 mg tab Take 1 tablet by mouth two times a day. - Cholecalciferol, Vitamin D3, 50 mcg (2,000 unit) cap Take 1 capsule by mouth once daily. - atorvastatin (LIPITOR) 40 mg tablet TAKE 1 TABLET BY MOUTH EVERY DAY FOR 90 DAYS - COMPOUNDED PRESCRIPTION Generic Glucometer - I each 50 strips and lancets. Re: Diabetes mellitus controlled with hypoglycemia. - Lancets lancets Test blood sugar(s) 1-2 times deya (more content not included)... Normal [facility] XR HIP 3V PELV+ AP/LAT RTon 04-22-2024 XR HIP 3V PELV+ AP/LAT RT * * *Final Report* * * DATE OF EXAM: Apr 22 2024 10:24AM O 5352 - XR HIP 3V PELV+ AP/LAT RT / PROCEDURE REASON: Z96.641-Status post right hip replacement * * * * Physician Interpretation * * * * Pelvis and right hip HISTORY: Indication: Status post right hip replacement TECHNIQUE: Images: XR HIP 3V PELV+ AP/LAT RT Comparison: 04/08/2024 RESULT: Findings: Pelvis: No fractures or dislocations are seen. Right hip: No fractures or dislocations are seen. The components of the RIGHT total hip arthroplasty appear stable.. There is no evidence of loosening of the components. IMPRESSION: Findings as discussed under Results portion of report. Manager Flight: HELADIO Transcribe Date/Time: Apr 23 2024 4:12P Dictated by : TWYLA HANSEN DO This examination was interpreted and the report reviewed and electronically signed by: TWYLA HANSEN DO on Apr 23 2024 4:13PM EST [id number] [facility] 04-15-2024 [facility] Telephone (HCSIND) DESTINEY OCAMPO ([id number]) 1950 M Date Time Provider Department 04/15/24 ASHLEY LANIER HCSIND During your visit today, we recorded the following information about you: Ashley Lanier PTA 04/15/2024 5:29 PM Signed Removeed ABD dressing today. No concerns. Picture uploaded to chart. Thanks Allergies As of Date: 04/15/2024 Noted Allergy Reaction LISINOPRIL 08/25/2012 3 - Cough Date Reviewed: 04/15/2024 Reviewed by: Ashley Lanier PTA - Fully Assessed Reason for Visit: Home Care [4073] Cmt: Bandage removal Prescriptions as of 04/15/2024 - oxyCODONE IR (ROXICODONE) 5 mg immediate release tablet Take 1-2 tablets by mouth every 6 hours as needed for pain for up to 7 days. - aspirin, enteric coated (ASPIRIN, ENTERIC COATED) 81 mg EC tablet Take 1 tablet by mouth two times a day for 28 days. - magnesium oxide (MAG-OX) 400 mg (241.3 mg magnesium) tablet Take 1 tablet by mouth two times a day for 10 doses. - docusate sodium (COLACE) 100 mg capsule Take 1 capsule by mouth two times a day as needed for constipation. - meloxicam (MOBIC) 7.5 mg tablet Take 1 tablet by mouth once daily for 14 days. - acetaminophen (TYLENOL) 500 mg tablet Take 2 tablets by mouth every 8 hours as needed for pain. - ascorbic acid, vitamin C, (VITAMIN C) 500 mg tablet Take 1 tablet by mouth two times a day with meals for 27 doses. - cefADROxil (DURICEF) 500 mg capsule Take 1 capsule by mouth every 12 hours for 14 days. - polyethylene glycol 3350 (MIRALAX) 17 gram/dose powder Take 17 g by mouth once daily as needed for constipation for up to 10 days. Dissolve dose in 4 - 8 ounces of liquid and take as directed. - metFORMIN ER (GLUCOPHAGE XR) 500 mg 24 hr tablet Take 1 tablet by mouth two times a day with meals. with breakfast and dinner - cyanocobalamin, vitamin B-12, (VITAMIN B-12 ORAL) Take 1 tablet by mouth once daily. - FOLIC ACID ORAL Take 1 tablet by mouth once daily. - fluticasone propionate (FLONASE NASAL) Use 1 [place] in the nose two times a day as needed (congestion). Patient should start on April 11, 2024. - ketoconazole (NIZORAL) 2 % cream Apply 1 application to affected area two times a day. Continue for 1 week after rash resolves. - metoprolol succinate ER (TOPROL XL) 25 mg 24 hr tablet Take 1 tablet by mouth once daily. - omeprazole (PRILOSEC) 20 mg capsule Take 1 capsule by mouth two times a day. - nystatin (MYCOSTATIN) powder Apply 1 application to affected area four times daily. Continue to use for a week after rash resolves. Use as needed for recurrences - ENTRESTO 49-51 mg tablet Take 1 tablet by mouth two times a day. (getting from patient assistance) - famotidine (PEPCID) 20 mg tablet Take 1 tablet by mouth at bedtime as needed. - Magnesium 250 mg tab Take 1 tablet by mouth two times a day. - Cholecalciferol, Vitamin D3, 50 mcg (2,000 unit) cap Take 1 capsule by mouth once daily. - atorvastatin (LIPITOR) 40 mg tablet TAKE 1 TABLET BY MOUTH EVERY DAY FOR 90 DAYS - COMPOUNDED PRESCRIPTION Generic Glucometer - I each 50 strips and lancets. Re: Diabetes mellitus controlled with hypoglycemia. - Lancets lancets Test blood sugar(s) 1-2 times daily or as directed. Dx: Type 2 DM - Controlled E11.9 Insulin: No - blood sugar diagnostic (BLOOD GLUCOSE TEST) test strip Test blood sugar(s) 1-2 times daily or as directed. Dx: Type 2 DM - Controlled E11.9 Insulin: No - Blood-Glucose Meter monitoring kit Glucose Meter of Choice (per insurance coverage)- Kit - Dx: Type 2 DM - Controlled E11.9, Test 1-2 times a day or as directed. No insulin Problem List As Of Date 04/15/2024 Noted Resolved PURE HYPERCHOLESTEROLEM [E78.00] DIVERTICULOSIS OF COLON W/O BLEED [K57.30] Dysthymic disorder [F34.1] 01/03/2021 PAIN HIP JOINT [M25.559] 01/17/2006 DEPRESSION RECURRENT( Moderate) [F33.1] 01/17/2006 05/22/2023 SOMNOLENCE [R40.4] 01/17/2006 01/03/2021 Headache(784.0) [R51] 01/17/2006 11/21/2014 Abdominal pain, other specified site [R10.9] 12/17/2006 11/21/2014 Diaphragmatic hernia [K44.9] 04/24/2007 GASTRITIS ANTRAL( W/O Hemorrhage) [K29.60] 04/24/2007 11/21/2014 ESOPHAGITIS REFLUX [K21.00] 04/24/2007 HEMORRHOIDS INTERNAL [K64.8] 04/24/2007 11/21/2014 ACUTE GASTRITIS W/O HEMORRHAGE [K29.00] 04/24/2007 BENIGN NEOPLASM LG BOWEL [D12.6] 04/24/2007 Hypertension [I10] 07/24/2011 Trigger middle finger of right hand [M65.331] 08/29/2011 01/03/2021 Trigger index finger of right hand [M65.321] 08/29/2011 07/16/2016 Diabetes mellitus type 2, controlled, without c*08/15/2014 Neck pain [M54.2] 08/16/2014 Cervical radiculopathy [M54.12] 08/16/2014 Midline thoracic back pain [M54.6] 09/01/2014 Neck pain on left side [M54.2] 09/01/2014 01/03/2021 Numbness and tingling of right upper extremity *09/01/2014 Numbness and tingling in left upper extremity [*09/01/2014 Cervical (more content not included)... Normal [facility] CNCOon 04-12-2024 CNCO Letter Text Normal [facility] CNPNon 04-12-2024 CNPN Telephone (ORMDNA) DESTINEY OCAMPO ([id number]) 1950 M Date Time Provider Department 04/12/24 NAKUL MADDOX During your visit today, we recorded the following information about you: Maria Fernanda Win 04/12/2024 2:54 PM Signed Patient's , Briseida, calling in asking for a script to be faxed to [facility] on [facility] in [place]. Fax number is [phone]. Maria Fernanda Ferreira [facility] Katie Carolina, CHRISTOPH 04/14/2024 10:15 AM Addendum Spoke with Pat- she was referring to new walker. Waist size 38 Wider walker Rx request and then fax order to listen number. Breonna Polk PA-C 04/14/2024 10:26 AM Signed Addended by: BREONNA POLK on: 04/14/2024 10:26 AM Modules accepted: Orders Katie Carolina RN 04/14/2024 11:10 AM Signed Faxed to number provided. Allergies As of Date: 04/12/2024 Noted Allergy Reaction LISINOPRIL 08/25/2012 3 - Cough Date Reviewed: 04/11/2024 Reviewed by: Miguelito Smith PT - Fully Assessed Reason for Visit: Orders [681] Cmt: Walker Primary Visit Diagnosis:Status post hip replacement, right [Z96.641] Order(s):WALKER FOLDING WHEELED W/O S [[id number]] Order #: [id number] Prescriptions as of 04/14/2024 - oxyCODONE IR (ROXICODONE) 5 mg immediate release tablet Take 1-2 tablets by mouth every 6 hours as needed for pain for up to 7 days. - aspirin, enteric coated (ASPIRIN, ENTERIC COATED) 81 mg EC tablet Take 1 tablet by mouth two times a day for 28 days. - magnesium oxide (MAG-OX) 400 mg (241.3 mg magnesium) tablet Take 1 tablet by mouth two times a day for 10 doses. - docusate sodium (COLACE) 100 mg capsule Take 1 capsule by mouth two times a day as needed for constipation. - meloxicam (MOBIC) 7.5 mg tablet Take 1 tablet by mouth once daily for 14 days. - acetaminophen (TYLENOL) 500 mg tablet Take 2 tablets by mouth every 8 hours as needed for pain. - ascorbic acid, vitamin C, (VITAMIN C) 500 mg tablet Take 1 tablet by mouth two times a day with meals for 27 doses. - cefADROxil (DURICEF) 500 mg capsule Take 1 capsule by mouth every 12 hours for 14 days. - polyethylene glycol 3350 (MIRALAX) 17 gram/dose powder Take 17 g by mouth once daily as needed for constipation for up to 10 days. Dissolve dose in 4 - 8 ounces of liquid and take as directed. - metFORMIN ER (GLUCOPHAGE XR) 500 mg 24 hr tablet Take 1 tablet by mouth two times a day with meals. with breakfast and dinner - cyanocobalamin, vitamin B-12, (VITAMIN B-12 ORAL) Take 1 tablet by mouth once daily. - FOLIC ACID ORAL Take 1 tablet by mouth once daily. - fluticasone propionate (FLONASE NASAL) Use 1 [place] in the nose two times a day as needed (congestion). Patient should start on April 11, 2024. - ketoconazole (NIZORAL) 2 % cream Apply 1 application to affected area two times a day. Continue for 1 week after rash resolves. - metoprolol succinate ER (TOPROL XL) 25 mg 24 hr tablet Take 1 tablet by mouth once daily. - omeprazole (PRILOSEC) 20 mg capsule Take 1 capsule by mouth two times a day. - nystatin (MYCOSTATIN) powder Apply 1 application to affected area four times daily. Continue to use for a week after rash resolves. Use as needed for recurrences - ENTRESTO 49-51 mg tablet Take 1 tablet by mouth two times a day. (getting from patient assistance) - famotidine (PEPCID) 20 mg tablet Take 1 tablet by mouth at bedtime as needed. - Magnesium 250 mg tab Take 1 tablet by mouth two times a day. - Cholecalciferol, Vitamin D3, 50 mcg (2,000 unit) cap Take 1 capsule by mouth once daily. - atorvastatin (LIPITOR) 40 mg tablet TAKE 1 TABLET BY MOUTH EVERY DAY FOR 90 DAYS - COMPOUNDED PRESCRIPTION Generic Glucometer - I each 50 strips and lancets. Re: Diabetes mellitus controlled with hypoglycemia. - Lancets lancets Test blood sugar(s) 1-2 times daily or as directed. Dx: Type 2 DM - Controlled E11.9 Insulin: No - blood sugar diagnostic (BLOOD GLUCOSE TEST) test strip Test blood sugar(s) 1-2 times daily or as directed. Dx: Type 2 DM - Controlled E11.9 Insulin: No - Blood-Glucose Meter monitoring kit Glucose Meter of Choice (per insurance coverage)- Kit - Dx: Type 2 DM - Controlled E11.9, Test 1-2 times a day or as directed. No insulin Problem List As Of Date 04/12/2024 Noted Resolved PURE HYPERCHOLESTEROLEM [E78.00] DIVERTICULOSIS OF COLON W/O BLEED [K57.30] Dysthymic disorder [F34.1] 01/03/2021 PAIN HIP JOINT [M25.559] 01/17/2006 DEPRESSION RECURRENT( Moderate) [F33.1] 01/17/2006 05/22/2023 SOMNOLENCE [R40.4] 01/17/2006 01/03/2021 Headache(784.0) [R51] 01/17/2006 11/21/2014 Abdominal pain, other specified site [R10.9] 12/17/2006 11/21/2014 Diaphragmatic hernia [K44.9] 04/24/2007 GASTRITIS ANTRAL( W/O Hemorrhage) [K29.60] 04/24/2007 11/21/2014 ESOPHAGITIS REFLUX [K21.00] 04/24/2007 HEMORRHOIDS INTERNAL [K64.8] 04/24/2007 11/21/2014 ACUTE GASTRITIS W/O HE (more content not included)... Normal [facility] CBC panel Auto (Bld)on 04-09 Erythrocyte distribution width (RBC) [Ratio] 13.0 % Normal 11.5-15.0 [facility] Comment on above: Order Comment: Joanna yoo Type: BLOOD SPECIMENOrdering Facility: [facility] Address: [address] [place] [address] Performed By: #### 5 8410-2 ####[facility] LABORATORYCLIA [id number] [address] [place] Hematocrit (Bld) [Volume fraction] 35.4 % Low 39.0-51.0 [facility] Comment on above: Order Comment: Joanna yoo Type: BLOOD SPECIMENOrdering Facility: [facility] Address: [address] [place] [address] Performed By: #### 5 8410-2 ####[facility] LABORATORYCLIA [id number] [place] [address] [place] Hemoglobin (Bld) [Mass/Vol] 11.3 g/dL Low 13.0-17.0 [facility] Comment on above: Order Comment: Joanna yoo Type: BLOOD SPECIMENOrdering Facility: [facility] Address: [address] [place] [address] Performed By: #### 5 8410-2 ####[facility]IC[facility] LABORATORYCLIA [id number] [address] MCH (RBC) [Entitic mass] 27.2 pg Normal 26.0-34.0 [facility] Comment on above: Order Comment: Speci men Type: BLOOD SPECIMENOrdering Facility: [facility] Address: [address] [place] [address] Performed By: #### 5 8410-2 ####RICHEY LABORATORYCLIA [id number] [address] MCHC (RBC) [Mass/Vol] 31.9 g/dL Normal 30.5-36.0 [facility] Comment on above: Order Comment: Speci men Type: BLOOD SPECIMENOrdering Facility: [facility] Address: [address] [place] [address] Performed By: #### 5 8410-2 ####RICHEY LABORATORYCLIA [id number] [address] MCV (RBC) [Entitic vol] 85.1 fL Normal 80.0-100.0 [facility] Comment on above: Order Comment: Speci men Type: BLOOD SPECIMENOrdering Facility: [facility] Address: [address] [place] [address] Performed By: #### 5 8410-2 ####RICHEY LABORATORYCLIA [id number] [address] Nucleated RBC (Bld) [#/Vol] 10*3/uL Normal <0.01 [facility] Comment on above: Order Comment: Speci men Type: BLOOD SPECIMENOrdering Facility: [facility] Address: [address] [place] [address] Performed By: #### 5 8410-2 ####RICHEY LABORATORYCLIA [id number] [address] Platelet mean volume (Bld) [Entitic vol] 10.4 fL Normal 9.0-12.7 [facility] Comment on above: Order Comment: Speci men Type: BLOOD SPECIMENOrdering Facility: [facility] Address: [address] [place] [address] Performed By: #### 5 8410-2 ####RICHEY LABORATORYCLIA [id number] [address] Platelets (Bld) [#/Vol] 139 10*3/uL Low 150-400 [facility] Comment on above: Order Comment: Speci men Type: BLOOD SPECIMENOrdering Facility: [facility] Address: [address] [place] [address] Performed By: #### 5 8410-2 ####[place] LABORATORYCLIA [id number] [address] [place] RBC (Bld) [#/Vol] 4.16 10*6/uL Low 4.20-6.00 [facility] Comment on above: Order Comment: Speci men Type: BLOOD SPECIMENOrdering Facility: [facility] Address: [address] [place] [address] Performed By: #### 5 8410-2 ####RICHYE LABORATORYCLIA [id number] [address] [place] WBC (Bld) [#/Vol] 10.12 10*3/uL Normal 3.70-11.00 [facility] Comment on above: Order Comment: Speci men Type: BLOOD SPECIMENOrdering Facility: [facility] Address: [facility] [place] [address] Performed By: #### 5 8410-2 ####LA PLATA LABORATORYCLIA [id number] [address] CNDSon 04-09-2024 [facility] HNO ID: [id number] Author: NAKUL MADDOX MD Service: Orthopaedic Surgery Author Type: Physician 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 Some of the information contained on this summary may be confidential. This information should be kept in your records and should be shared with your regular doctor. These instructions explain what you or your home care attendant need to do to continue your care at home or at another healthcare facility Please go over these instructions with your nurse and home care attendant. If you are not sure about something, please ask. Highest Readmission Risk Score: 8 The 30 day readmissions risk score is derived from an internally validated risk model which evaluates patient level characteristics, utilization history, medication orders and lab results up until the day of discharge. Patients with a score of 39 or above are considered highest risk for readmission. Specific patient level drivers will be listed at the bottom of the summary. The 30 day readmissions risk score is derived from an internally validated risk model which evaluates patient level characteristics, utilization history, medication orders and lab results up until the day of discharge. Patients with a score of 40 or above are considered highest risk for readmission. Where I Will be Going after Discharge: Home with Home Health My Condition at Discharge: Stable PRINCIPAL DIAGNOSIS: (Reason after study for this admission): Procedure(s): ARTHROPLASTY ACETABULAR AND PROX FEM PROSTH TOTAL HIP ANTERIOR APPROACH OTHER DIAGNOSES: Patient Active Hospital Problem List: Primary osteoarthritis of both hips Date Noted: 04/08/2024 OPERATIONS PERFORMED: Procedure(s): ARTHROPLASTY ACETABULAR AND PROX FEM PROSTH TOTAL HIP ANTERIOR APPROACH My Doctors and Medical Team: My Main Hospital Doctor: Doctor Maddox, Nakul Castro MD PHYSICAL EXAM: See daily progress note Vitals: BP 102/55 Pulse (!) 56 Temp 36.5 ?C (97.7 ?F) (Oral) Resp 18 SpO2 95% SUMMARY OF WHAT HAPPENED WHILE PATIENT WAS IN THE HOSPITAL: The patient was followed by Dr. Maddox in clinic for right hip osteoarthritis. It was determined the patient would benefit from right total hip arthroplasty. The procedure, its risks, benefits, and potential complications were discussed in detail prior to surgery. The patient conveyed understanding of all topics and consented to surgery. The patient was admitted to the hospital. Underwent an elective right total hip arthroplasty on 04/08/[address] Maddox. The patient tolerated the procedure well and was returned to the Post Anesthesia Care Unit in stable condition. Vital signs per PACU protocol. VTE risk assessment performed. O2 therapy monitored by Respiratory Therapy to include incentive spirometry, ADL, wound and support per physician order set postop protocol. PT and OT to evaluate and treat. IV antibiotics, antiemetics, DVT prophylaxis and pain medication were given. The patient progressed with physical therapy. Lab values and vital signs were monitored and remained stable. The incision remained clean, dry and intact. Thigh and calf are not swollen. No signs of DVT or infection. The patient progressed with physical therapy towards goal of safety and independence. Patient was determined safe for discharge to home with home health care on 04/09/2024. TREATMENT / WOUND CARE: If you have any concerns about your wound, please contact the office. Keep wound and incision area clean and dry. You may remove your dressing on POD #7-10 (7 to 10 days after surgery). If it remains drainage-free, you may leave the dressing off, keeping the wound open to air. If there is any drainage please contact the office You may not submerge the wound under standing water for 6 weeks time after surgery (i.e. no baths, no hot tubs, no swimming pools). Do not rub the wound, but rather pat dry. If you have non-absorbable sutures in place, these will be taken out on your 1st follow-up appointment. Observe the wound for signs of infection, including increased redness, swelling, or persistent drainage around the incision site. It is normal for your wound to be warmer immediately after surgery (even up to 4-6 weeks aft (more content not included)... [facility] 04-09-2024 [facility] Telephone (HCSIND) DESTINEY OCAMPO ([id number]) 1950 Date Time Provider Department 04/09/24 BETTY LINARES HCSIND During your visit today, we recorded the following information about you: Betty Linares PSS 04/09/2024 10:53 AM Signed Date/Time: 04/09/2024 10:51 AM Spoke with patient @ phone #: [phone] - Preferred # for contact: [phone] Have you received help from a home care company in the last 60 days? No Are you agreeable to [facility] services? Yes What address will we be seeing you at? [facility] [place] [address] Do you have any upcoming appointments or things we need to schedule around? No Do you have a teachable CG or can you manage your care independently? yes Who? spouse Have you received the flu shot? Yes If so, when and where? [facility] Dec 2023 Allergies As of Date: 04/09/2024 Noted Allergy Reaction LISINOPRIL 08/25/2012 3 - Cough Date Reviewed: 04/08/2024 Reviewed by: Cristiane Acevedo RN - Fully Assessed Reason for Visit: Home Care [4073] Cmt: Confirmation Call Prescriptions as of 04/09/2024 - aspirin, enteric coated (ASPIRIN, ENTERIC COATED) 81 mg EC tablet Take 1 tablet by mouth two times a day for 28 days. - magnesium oxide (MAG-OX) 400 mg (241.3 mg magnesium) tablet Take 1 tablet by mouth two times a day for 10 doses. - docusate sodium (COLACE) 100 mg capsule Take 1 capsule by mouth two times a day as needed for constipation. - meloxicam (MOBIC) 7.5 mg tablet Take 1 tablet by mouth once daily for 14 days. - acetaminophen (TYLENOL) 500 mg tablet Take 2 tablets by mouth every 8 hours as needed for pain. - ascorbic acid, vitamin C, (VITAMIN C) 500 mg tablet Take 1 tablet by mouth two times a day with meals for 27 doses. - cefADROxil (DURICEF) 500 mg capsule Take 1 capsule by mouth every 12 hours for 14 days. - oxyCODONE IR (ROXICODONE) 5 mg immediate release tablet Take 1-2 tablets by mouth every 6 hours as needed for pain for up to 7 days. - polyethylene glycol 3350 (MIRALAX) 17 gram/dose powder Take 17 g by mouth once daily as needed for constipation for up to 10 days. Dissolve dose in 4 - 8 ounces of liquid and take as directed. - metFORMIN ER (GLUCOPHAGE XR) 500 mg 24 hr tablet Take 1 tablet by mouth two times a day with meals. with breakfast and dinner - cyanocobalamin, vitamin B-12, (VITAMIN B-12 ORAL) Take by mouth. - FOLIC ACID ORAL Take by mouth. - fluticasone propionate (FLONASE NASAL) Use in the nose. - ketoconazole (NIZORAL) 2 % cream Apply 1 application to affected area two times a day. Continue for 1 week after rash resolves. - metoprolol succinate ER (TOPROL XL) 25 mg 24 hr tablet Take 1 tablet by mouth once daily. - omeprazole (PRILOSEC) 20 mg capsule Take 1 capsule by mouth two times a day. - nystatin (MYCOSTATIN) powder Apply 1 application to affected area four times daily. Continue to use for a week after rash resolves. Use as needed for recurrences - ENTRESTO 49-51 mg tablet Take 1 tablet by mouth two times a day. (getting from patient assistance) - famotidine (PEPCID) 20 mg tablet Take 1 tablet by mouth at bedtime as needed. - Magnesium 250 mg tab Take 1 tablet by mouth two times a day. - Cholecalciferol, Vitamin D3, 50 mcg (2,000 unit) cap Take 1 capsule by mouth once daily. - atorvastatin (LIPITOR) 40 mg tablet TAKE 1 TABLET BY MOUTH EVERY DAY FOR 90 DAYS - COMPOUNDED PRESCRIPTION Generic Glucometer - I each 50 strips and lancets. Re: Diabetes mellitus controlled with hypoglycemia. - Lancets lancets Test blood sugar(s) 1-2 times daily or as directed. Dx: Type 2 DM - Controlled E11.9 Insulin: No - blood sugar diagnostic (BLOOD GLUCOSE TEST) test strip Test blood sugar(s) 1-2 times daily or as directed. Dx: Type 2 DM - Controlled E11.9 Insulin: No - Blood-Glucose Meter monitoring kit Glucose Meter of Choice (per insurance coverage)- Kit - Dx: Type 2 DM - Controlled E11.9, Test 1-2 times a day or as directed. No insulin Facility-Administered Medications as of 04/09/2024 - NaCl 0.9% 1,000 mL iv bolus - metoprolol succinate ER 25 mg tab(s) (TOPROL XL) - magnesium oxide 400 mg tab(s) (MAG-OX) - keTORolac 15 mg injection (Toradol) - atorvastatin 40 mg tab(s) (LIPITOR) - metFORMIN ER 500 mg tab(s) (GLUCOPHAGE XR) - pantoprazole DR 40 mg tab(s) (PROTONIX) - acetaminophen 1,000 mg tab(s) (TYLENOL) - oxyCODONE IR 5-10 mg tab(s) (ROXICODONE) - HYDROmorphone 0.4 mg injection (DILAUDID) - ondansetron orally disintegrating 4 mg tab(s) (ZOFRAN ODT) - ondansetron (PF) 4 mg injection (ZOFRAN) - magnesium hydroxide 400 mg/5 mL 30 mL (MOM) - bisacodyl EC 10 mg tab(s) (DULCOLAX) - aluminum-magnesium hydroxide-simethicone 200-200-20 mg/5 mL 30 mL - ferrous sulfate 325 mg tab(s) - ascorbic acid (vitamin C) 500 mg tab(s) (VITAMIN C) - senna 17.2 mg tab(s) (SENOKOT) - dextrose 40 % 15 g - glucagon (more content not included)... Normal [facility] metabolic 2000 panelon 04-09-2024 Albumin [Mass/Vol] 3.4 g/dL Low 3.9-4.9 [facility] Comment on above: Order Comment: Speci men Type: BLOOD SPECIMENOrdering Facility: [facility] Address: [address] [place] [address] Performed By: #### 1 9123-9, 25384-4 ####RICHEY LABORATORYCLIA [id number] [place] [address] [place] ALP [Catalytic activity/Vol] 65 U/L Normal 38-113 [facility] Comment on above: Order Comment: Speci men Type: BLOOD SPECIMENOrdering Facility: [facility] Address: [address] [place] [address] Performed By: #### 1 9123-9, 35062-4 ####RICHEY LABORATORYCLIA [id number] [place] [address] [place] ALT [Catalytic activity/Vol] 12 U/L Normal 10-54 [facility] Comment on above: Order Comment: Speci men Type: BLOOD SPECIMENOrdering Facility: [facility] Address: [address] [place] [address] Performed By: #### 1 9123-9, 17380-6 ####RICHEY LABORATORYCLIA [id number] [address] [place] [facility] Anion gap [Moles/Vol] 9 mmol/L Normal 8-15 [facility] Comment on above: Order Comment: Speci men Type: BLOOD SPECIMENOrdering Facility: [facility] Address: [address] [place] [address] Performed By: #### 1 9123-9, 73887-4 ####RICHEY LABORATORYCLIA [id number] [place] [address] [place] AST [Catalytic activity/Vol] 20 U/L Normal 14-40 [facility] Comment on above: Order Comment: Speci men Type: BLOOD SPECIMENOrdering Facility: [facility] Address: [address] [place] [address] Performed By: #### 1 23-9, 24532-3 ####RICHEY LABORATORYCLIA [id number] [place] [address] [place] Bilirubin [Mass/Vol] 0.8 mg/dL Normal 0.2-1.3 [facility] Comment on above: Order Comment: Speci men Type: BLOOD SPECIMENOrdering Facility: [facility] Address: [address] [place] [address] Performed By: #### 1 23-9, ####RICHEY LABORATORYCLIA [id number] [place] [address] [place] Calcium [Mass/Vol] 8.6 mg/dL Normal 8.5-10.2 [facility] Comment on above: Order Comment: Speci men Type: BLOOD SPECIMENOrdering Facility: [facility] Address: [address] [place] [address] Performed By: #### 1 9, ####RICHEY LABORATORYCLIA [id number] [place] [address] [place] Chloride [Moles/Vol] 102 mmol/L Normal 98-107 [facility] Comment on above: Order Comment: Speci men Type: BLOOD SPECIMENOrdering Facility: [facility] Address: [address] [place] [address] Performed By: #### 1 239, 63772-9 ####RICHEY LABORATORYCLIA [id number] [place] [address] [place] CO2 [Moles/Vol] 26 mmol/L Normal 22-30 [facility] Comment on above: Order Comment: Speci men Type: BLOOD SPECIMENOrdering Facility: [facility] Address: [address] [place] [address] Performed By: #### 1 23-9, 14738-8 ####RICHEY LABORATORYCLIA [id number] [place] [address] [place] Creatinine [Mass/Vol] 0.81 mg/dL Normal 0.73-1.22 [facility] Comment on above: Order Comment: Speci men Type: BLOOD SPECIMENOrdering Facility: [facility] Address: [address] [place] [address] Performed By: #### 1 9123-9, 20719-6 ####RICHEY LABORATORYCLIA [id number] [place] [id number] [place] Creatinine and Glomerular filtration rate.predicted panel (S/P/Bld) 93 mL/min/1.73m??? Normal >=60 [facility] Comment on above: Order Comment: Joanna yoo Type: BLOOD SPECIMENOrdering Facility: [facility] Address: [address] [place] [address] Result Comment: Kemi mated Glomerular Filtration Rate (eGFR) is calculated using the 2020 CKD-EPI creatinine equation. This equation utilizes serum creatinine, sex, and age as parameters. The creatinine assay has traceable calibration to isotope dilution-mass spectrometry. Refer to KDIGO guidelines for clinical interpretation. In patients with unstable renal function, e.g. those with acute kidney injury, the eGFR may not accurately reflect actual GFR. Performed By: #### 1 9123-9, 70530-6 ####RICHEY LABORATORYCLIA [id number] [place] [id number] [place] Glucose [Mass/Vol] 147 mg/dL High 74-99 [facility] Comment on above: Order Comment: Joanna yoo Type: BLOOD SPECIMENOrdering Facility: [facility] Address: [address] [place] [address] Result Comment: The [place] Diabetes Association (ADA) provides guidance for cutoff values for fasting glucose and random glucose. The ADA defines fasting as no caloric intake for at least 8 hours. Fasting plasma glucose results between 100 to 125 mg/dL indicate increased risk for diabetes (prediabetes). Fasting plasma glucose results greater than or equal to 126 mg/dL meet the criteria for diagnosis of diabetes. In the absence of unequivocal hyperglycemia, results should be confirmed by repeat testing. In a patient with classic symptoms of hyperglycemia or hyperglycemic crisis, random plasma glucose results greater than or equal to 200 mg/dL meet the criteria for diagnosis of diabetes. Reference: Standards of Medical Care in Diabetes 2016, [place] Diabetes Association. Diabetes Care. 2016.39(Suppl 1). Performed By: #### 1 239, ####RICHEY LABORATORYCLIA [id number] [place] [address] [place] Potassium [Moles/Vol] 4.0 mmol/L Normal 3.7-5.1 [facility] Comment on above: Order Comment: Speci men Type: BLOOD SPECIMENOrdering Facility: [facility] Address: [address] [place] [address] Performed By: #### 1 239, ####RICHEY LABORATORYCLIA [id number] [place] [address] [place] Protein [Mass/Vol] 5.5 g/dL Low 6.3-8.0 [facility] Comment on above: Order Comment: Speci men Type: BLOOD SPECIMENOrdering Facility: [facility] Address: [address] [place] [address] Performed By: #### 1 239, ####RICHEY LABORATORYCLIA [id number] [place] [address] [place] Sodium [Moles/Vol] 137 mmol/L Normal 136-144 [facility] Comment on above: Order Comment: Speci men Type: BLOOD SPECIMENOrdering Facility: [facility] Address: [address] [place] [address] Performed By: #### 1 23-9, 82738-3 ####RICHEY LABORATORYCLIA [id number] [place] [address] [place] Urea nitrogen [Mass/Vol] 14 mg/dL Normal 9-24 [facility] Comment on above: Order Comment: Speci men Type: BLOOD SPECIMENOrdering Facility: [facility] Address: [address] [place] [address] Performed By: #### 1 23-9, 63947-8 ####RICHEY LABORATORYCLIA [id number] [place] [address] [place] Magnesium SerPl-mCncon 04-09 Magnesium [Mass/Vol] 1.4 mg/dL Low 1.7-2.3 [facility] Comment on above: Order Comment: Speci men Type: BLOOD SPECIMENOrdering Facility: [facility] Address: [address], [place] [address] Performed By: #### 1 9123-9, 40025-5 ####[facility]ORYMA[facility] [id number] [place] [address] [facility] THERAPY NTon 04-09-2024 THERAPY NT HNO ID: [id number] Author: BHAVIK PAINTING PTA Service: Physical Therapy Author Type: Fraud Examiner Type: Therapy (PT/OT/Speech/Resp) Filed: 04/09/2024 12:31 Note Text: Attestation signed by Ellen Khan PT, DPT at 04/09/2024 4:58 PM I reviewed and agree with the documentation corresponding to this therapy visit. SIGNATURE: Ellen Khan PT, DPT DATE: April 09, 2024 TIME: 4:57 PM Summary: PT Treat Physical Therapy Treatment Summary SERVICE DATE: 04/09/2024 SERVICE TIME: 1137 to 1218 ROOM: [id number] PT 6 Clicks Score: 18 Total Joint Replacement Discharge Readiness: Cleared from Physical Therapy DISCHARGE RECOMMENDATIONS Home PT Recommended Discharge Disposition Comments: Patient with new onset of pain, weakness, limited ROM, impaired balance, and impaired safety awareness,causing him to require assistance with mobility. Home health PT is indicated to address his impairments and promote return to prior level of independence and mobility. Recommended Discharge Equipment: No equipment needs anticipated ASSESSMENT Response to Therapy Interventions: Good Participation in Activities, Improved Tolerance for Activity, On-Track to Achieve Discharge Goals, Pain, Notable Progression with Functional Activities/Skills, Needs Frequent Redirection or Reinstruction, Requires Additional Time to Complete Activities pt tolerated session well. pt slow paced with activity and increased time to explain gait sequencing to maintain WB. pt able to follow commands and complete cueb step training. pt is safe to go home with home PT following hospital d/c PRECAUTIONS Bed/Chair Alarm, Fall Risk, Lines/Tubes/Drains, Weight Bearing Restrictions, Anterior Hip Precautions no flexion past 90 degrees, no hip abduction, no hip extension, no ER Right Lower Extremity Weight Bearing Status: 50% PWB CURRENT HOSPITAL COURSE s/p R INES anterior approach Relevant Past Medical History: Diverticulosis of colon, HLD, RAJI, CAD, cardiomyopathy, prostate Ca, pulmonary nodule, cervical spondylosis, DM, HTN, HLD HOME LIVING Patient Lives With: Spouse, Other: See Comment Comments: and dog Assistance Available: 24-Hour Entry To Home: Stairs, Without Rail Number Of Stairs Into Home: 2 (curb steps) Number Of Stairs To Bed/Bath: 0 Tub/Shower Type: tub/shower combo with shower chair and hand held shower Laundry: in basement, spouse completes. Equipment Owned: Walker- Wheeled, Commode- Raised, Lift Chair, Shower Chair, Hand Held Shower, Cane, Grab Bars- Toilet PRIOR FUNCTIONAL LEVEL Within Functional Limits Indep with mobility and ADL tasks without device. Spouse completes IADL tasks. Denies falls in the last 6 months. +driving. SUBJECTIVE Pt agreeable to PT okay per RN to see THERAPY DIAGNOSIS Reduced mobility-other, Muscle Weakness (generalized) TREATMENT INTERVENTIONS Therapeutic Activity (10067), Gait Training (26063) Timed Code Treatment (minutes): 41 Skilled Treatment Time (minutes): 41 Therapeutic Activity (54103) Treatment Minutes: 30 $ Therapeutic Activity (82979) Billed Units: 2 units Gait Training (79598) Treatment Minutes: 11 $ Gait Training (90034) Billed Units: 1 unit TRAINING AND EDUCATION PROVIDED Advanced Balance Activities, Assistive Device Use, Bed Mobility, Benefits of In-Hospital Mobility, Discharge Planning, Energy Conservation, Expected Functional Level, Falls Prevention, Gait Pattern, Reduction of Deviations, Home Safety, Role of Physical Therapy, Standing Balance, Transfers, Positioning, Handout Issued THERAPEUTIC SKILLS USED Activity Dosing, Cuing Tactile, Cuing Verbal, Facilitation of Joint Range of Motion, Movement Facilitation, Physical Assist, Postural Alignment Correction, Assessment of Tolerance Including Vitals Response to Activity, Management of Critical Lines, Tubes and/or Drains FUNCTIONAL STATUS Bed Mobility Supine To Sit: Minimal Assistance, Additional Information HOB elevated. pt able to bring BLE towards EOB and assist with trunk towards EOB. pt reports he will be sleeping in a reacliner at home Sit to Supine: Contact Guard Assistance, Additional Information assist with BLE back into bed Scooting: Contact Guard Assistance, Additional Information forward retro in bed Transfers Sit To Stand: Contact Guard Assistance, Additional Information cues for hand placement as well as RLE placement. review of WB and hip precautions Stand To Sit: Contact Guard Assistance, Additional Information cues for safe approach, hand placement as well as RLE placement. assist with controlled descen t (more content not included)... [facility] THERAPY NT HNO ID: [id number] Author: GALLITO AGUILAR OT/L Service: ? Author Type: Occupational Therapist Type: Therapy (PT/OT/Speech/Resp) Filed: 04/09/2024 08:37 Note Text: Summary: OT Evaluation Occupational Therapy Evaluation Summary SERVICE DATE: 04/09/2024 SERVICE TIME: 0734 to 0820 ROOM: [place] [address] OT 6 Clicks Score: 18 Total Joint Replacement Discharge Readiness: Cleared from Occupational Therapy DISCHARGE RECOMMENDATIONS Home OT Anticipated Discharge Needs: Physical Assist at Home, Supervision at Home Physical Assist at Home for: Cleaning, Laundry, Meals, Safety, Self Care, Shopping, Transportation Supervision at Home due to: Decreased safety awareness Recommended Discharge Equipment: Patient to Obtain, ADL Kit ASSESSMENT Response to Therapy Interventions: Good Participation in Activities, On-Track to Achieve Discharge Goals, Pain, Low Activity Tolerance, Labile Vital Signs OT reviewed anterior hip handout and introduced use of DME/adapative equipment, patient c/o dizziness during session and noted to be hypotensive - RN notified. Patient safely returned to bed and symptoms improved, painful throughout - RN notified, OT educated pt/spouse on recommended d/c equipment for safe home-going, patient and spouse report no questions/concerns for d/c home, cleared from OT standpoint pending medical appropriateness for d/c PRECAUTIONS Bed/Chair Alarm, Fall Risk, Lines/Tubes/Drains, Weight Bearing Restrictions, Anterior Hip Precautions no flexion past 90 degrees, no hip abduction, no hip extension, no ER Right Lower Extremity Weight Bearing Status: 50% PWB CURRENT HOSPITAL COURSE s/p R INES anterior approach Relevant Past Medical History: Diverticulosis of colon, HLD, RAJI, CAD, cardiomyopathy, prostate Ca, pulmonary nodule, cervical spondylosis, DM, HTN, HLD HOME LIVING Patient Lives With: Spouse, Other: See Comment Comments: and dog Assistance Available: 24-Hour Entry To Home: Stairs, Without Rail Number Of Stairs Into Home: 2 (curb steps) Number Of Stairs To Bed/Bath: 0 Tub/Shower Type: tub/shower combo with shower chair and hand held shower Laundry: in basement, spouse completes. Equipment Owned: Walker- Wheeled, Commode- Raised, Lift Chair, Shower Chair, Hand Held Shower, Cane, Grab Bars- Toilet PRIOR FUNCTIONAL LEVEL Within Functional Limits Indep with mobility and ADL tasks without device. Spouse completes IADL tasks. Denies falls in the last 6 months. +driving. Baseline Cognition: Oriented to place, Oriented to self, Oriented to situation, Oriented to time SUBJECTIVE RN cleared to work with, patient pleasant and agreeable to this session COGNITION Orientation Deficits: (AOx4) Responsiveness: Alert, Awake Follows Commands: 3-step Commands THERAPY DIAGNOSIS Reduced mobility-other, Decreased activities of daily living (ADL), Muscle Weakness (generalized) TREATMENT INTERVENTIONS Evaluation, Self Chcf Management (39695), Therapeutic Activity (94730) Timed Code Treatment (minutes): 27 Skilled Treatment Time (minutes): 42 TRAINING AND EDUCATION PROVIDED Activity Adaptation/Compensatory Strategies, Adaptive Equipment/DME, Assistive Device Use, Bed Mobility, Benefits of In-Hospital Mobility, Command Following, Discharge Planning, Expected Functional Level, Functional Mobility Involving ADLs, Grooming Tasks, Insight into Deficits, Lower Extremity Dressing, Lower Extremity Bathing, Memory/Attention, Positioning, Precautions/Restriction s, Pain Management, Role of Occupational Therapy, Safety/Judgment, Sitting Balance to Improve [place] with ADLs/Self-Care, Standing Balance to Improve [place] with ADLs/Self-Care, Toileting , Transfer - Bed to Chair, Transfer - Sit to Stand, Transfer - Toilet/Commode, Upper Extremity Dressing THERAPEUTIC SKILLS USED Assessment of Tolerance Including Vitals Response to Activity, Activity Dosing, Cues for Sequencing/Proper Technique for Activity, Cuing Tactile, Cuing Verbal, Cuing Visual, Facilitation of Joint Range of Motion, Management of Critical Lines, Tubes and/or Drains, Movement Facilitation, Muscle Activation Facilitation, Family Training, Physical Assist, Task Analysis Learning, Teach-Back for Education, Therapeutic Use of Self FUNCTIONAL STATUS Activities of Daily Living Assist Level Additional Information Feeding Independent Grooming Contact Guard Assistance, Additional Information Standing at the sink to wash hands Bathing Upper Body Stand By Assistance, Additional Information Seated Bathing Lower Body Additional Information, Moderate Assistance Educated on use of long-handled sponge Dressing Upper Body Set Up Dressing Lower Body Minimal Assistance, Additional Information educated on use of non morse intercept technician and sockai (more content not included)... [facility] ANES POSTPROC EVALon 025 ANES POSTPROC EVAL HNO ID: [id number] Author: NAKUL FIGUEREDO MD Service: Anesthesiology Author Type: Anesthesiologist Type: Anesthesia Postprocedure Evaluation Filed: 04/08/2024 09:43 Note Text: POST ANESTHESIA EVALUATION NOTE : 1950 Procedure Summary Date: 04/08/24 Room / Location: [place]06 [place] Anesthesia Start: 730 Anesthesia Stop: 930 Procedure: ARTHROPLASTY ACETABULAR AND PROX FEM PROSTH TOTAL HIP ANTERIOR APPROACH (Right: Hip) Diagnosis: Primary osteoarthritis of both hips (Primary osteoarthritis of both hips [M16.0]) Surgeons: Nakul Maddox MD Responsible Provider: Nakul Figueredo MD Anesthesia Type: spinal ASA Status: 3 Anesthesia Type: spinal Last Vitals Vitals Value Taken Time BP 103/52 04/08/24 0935 Temp 36 ?C (96.8 ?F) 04/08/24 0935 Pulse 82 04/08/24 0941 Resp 22 04/08/24 0941 SpO2 96 % 04/08/24 0941 Vitals shown include unfiled device data. Post Anesthesia Patient Status Patient Evaluation: bedside. Anticipated Disposition: inpatient floor planned admission. Neurological Status: aware and responsive. Pulmonary Status: breathing comfortably on room air Airway Control: returned to baseline unsupported. Cardiovascular Status: stable. Pain Management: clinically adequate Postoperative Hydration: acceptable. Intraoperative Events: no significant anesthesia events Post Operative Nausea/Vomiting Status: no significant post operative nausea or vomiting Recommendation: continue current plan of care. Anesthesia Observations No Documentation SIGNATURE: Nakul Figueredo MD PATIENT NAME: Destiney Ocampo DATE: April 08, 2024 TIME: 9:42 AM CSN: [id number] [facility] ANES PRE-OPon 04-08-2024 ANES PRE-OP HNO ID: [id number] Author: NAKUL FIGUEREDO MD Service: Anesthesiology Author Type: Anesthesiologist Type: Anesthesia Preprocedure Evaluation Filed: 04/08/2024 06:57 Note Text: ANESTHESIOLOGY DAY OF SURGERY NOTE : 1950 Procedure Information Date/Time: 04/08/24 0730 Procedure: ARTHROPLASTY ACETABULAR AND PROX FEM PROSTH TOTAL HIP ANTERIOR APPROACH (Right) Location: [place] [address] / [place] Surgeons: Nakul Maddox MD Estimated body mass index is 34.7 kg/m? as calculated from the following: Height as of 03/22/24: 167.6 cm (5' 6). Weight as of 03/22/24: 97.5 kg (215 lb). Most recent hematocrit and potassium results: Hematocrit 45.9 03/22/2024 Potassium 5.0 03/22/2024 Relevant Problems ANESTHESIA (+) RAJI (obstructive sleep apnea) AHI 39 CARDIO (+) Coronary artery 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 angina pectoris (+) Hypertension ENDO (+) Diabetes mellitus type 2, controlled, without complications (HCC) NEURO-PSYCH (+) Headaches PULMONARY (+) RAJI (obstructive sleep apnea) AHI 39 Other (+) Shoulder arthritis I - PHYSICAL EVALUATION AIRWAY Patient intubated: No. Tracheostomy tube not present Mallampati: II. TM distance: >3 FB. Neck ROM: full ROM without neurological symptoms. Mouth opening: adequate. Short neck: no. Thick neck: no DENTAL Normal dental observations. Dental findings: teeth intact. II - ANESTHESIA PLAN ASA Score: 3 Anesthetic Plan: spinal The patient is not a current smoker. NPO Status: adequate Beta Gino Monitoring Plan Monitoring plan: standard ASA. Post Procedure Analgesic Plan Postoperative analgesic plan: parenteral or oral opioids and multimodal analgesia. Informed Consent Anesthetic risks, benefits, alternatives, personnel and consent discussed: yes. Patient / Responsible Constitution Party agrees to proceed: yes Patient / Surrogate agrees to blood products: blood products not planned DNR status not reviewed with patient and/or family prior to surgery. Significant changes in the patient condition since the History and Physical, not otherwise documented in primary service progress note: no. Potential Anesthesia issues that may suggest increased risk of complications or contraindication to planned procedure: none. Discussed the possibility of lip / dental damage: yes Vitals Value Taken Time BP 144/79 04/08/24 0632 Pulse 75 04/08/24 0632 Resp 18 04/08/24 0632 Temp 36.1 ?C (97 ?F) 04/08/24 0632 SpO2 93 % 04/08/24 0632 Facility-Administered Medications as of 04/08/2024 Medication Dose Route Frequency lidocaine (PF) 10 mg/mL (1 %) 1-2 mg injection (XYLOCAINE) 0.1-0.2 mL INTRADERMAL PRN NaCl 0.9% iv flush bag 20 mL INTRAVENOUS PRN ceFAZolin iv piggyback 2 g in D5W (iso-osmotic) 100 mL (ANCEF) 2 g INTRAVENOUS Pre-Op Once tranexamic acid (CYKLOKAPRON) in NaCl 0.7% 1,000 mg 100 mL 1,000 mg INTRAVENOUS Pre-Op Once tranexamic acid (CYKLOKAPRON) in NaCl 0.7% 1,000 mg 100 mL 1,000 mg INTRAVENOUS ONCE [COMPLETED] acetaminophen 1,000 mg tab(s) (TYLENOL) 1,000 mg ORAL Pre-Op Once lactated ringers iv infusion 30 mL/hr INTRAVENOUS CONTINUOUS [COMPLETED] celecoxib 200 mg cap(s) (CeleBREX) 200 mg ORAL Pre-Op Once [COMPLETED] oxyCODONE ER 10 mg tab(s) (OxyCONTIN) 10 mg ORAL Pre-Op Once scopolamine (delivers 1 mg over 3 days) 1 Patch (TRANSDERM-SCOP) 1 Patch TRANSDERMAL ONCE scopolamine - VERIFY patch OTHER q 8 H [START ON 04/09/2024] scopolamine - REMOVE PATCH OTHER ONCE Outpatient Medications as of 04/08/2024 Medication Sig metoprolol succinate ER (TOPROL XL) 25 mg 24 hr tablet Take 1 tablet by mouth once daily. omeprazole (PRILOSEC) 20 mg capsule Take 1 capsule by mouth two times a day. ENTRESTO 49-51 mg tablet Take 1 tablet by mouth two times a day. (getting from patient assistance) Magnesium 250 mg tab Take 1 tablet by mouth two times a day. Cholecalciferol, Vitamin D3, 50 mcg (2,000 unit) cap Take 1 capsule by mouth once daily. atorvastatin (LIPITOR) 40 mg tablet TAKE 1 TABLET BY MOUTH EVERY DAY FOR 90 DAYS MELOXICAM ORAL DAILY [] meloxicam (MOBIC) 15 mg tablet Take 1 tablet by mouth once daily. ketoconazole (NIZORAL) 2 % cream Apply 1 application to affected area two times a day. Continue for 1 week after rash resolves. nystatin (MYCOSTATIN) powder Apply 1 application to affected area four times daily. Continue to use for a week after rash resolves. Use as needed for recurrences famotidine (PEPCID) 20 mg tablet Take 1 tablet by mouth at bedtime as needed. aspirin 81 mg chewable tablet Take 81 mg by mouth. COMPOUNDED PRESCRIPTION Generic Glucometer - I each 50 strips and lancets. Re: Diabetes mellitus controlled with hypoglycemia. Lancets lancets Test blood sugar(s) 1-2 times daily or as directed. Dx: Type 2 DM - Controlled E11.9 Insulin: No blood sugar diagnostic (BLOOD GLUCOSE TEST) test strip Test blood sugar(s) 1-2 times daily or a (more content not included)... [facility] CONSULTon 04-08-2024 CONSULT HNO ID: [id number] Author: ANTOINE LOU MD Service: General Internal Medicine Author Type: Physician Type: Consults Filed: 04/08/2024 21:22 Note Text: [facility]- Consultation DESTINEY OCAMPO : 1950 AGE: 74 SEX: M ACCTNUM: [id number] [facility]: [facility] LOCATION: [facility] ATTENDING PHYSICIAN: NAKUL MADDOX DATE OF SERVICE: 04/08/2024 TIME OF SERVICE: 04:34 PM REASON FOR CONSULTATION: Postop medical management. HISTORY: This is a 74-year-old gentleman whose significant medical history includes osteoarthritis, coronary artery disease, cardiomyopathy with last EF of 45%, hypertension, hyperlipidemia, obstructive sleep apnea, nonadherent with CPAP, GERD, DM type 2 fairly controlled, prostate cancer status post prostatectomy. The patient underwent elective right total hip arthroplasty under spinal anesthesia. The patient had an uneventful intraoperative course. Estimated blood loss was 200 mL. The patient did well with the first round of physical therapy without experiencing any nausea, vomiting, lightheadedness, dizziness. During initial evaluation, patient is alert oriented and his pain is well controlled. PAST MEDICAL HISTORY: As mentioned above and also has a history of depression and chronic back pain. PAST SURGICAL HISTORY: Includes endoscopy, cardiac catheterization, lithotripsy. FAMILY HISTORY: Father has psychiatric problem. Mother had diabetes and COPD. SOCIAL HISTORY: Smoked 1 pack for 30 years, quit in 2004. He is . He drinks alcohol rarely. MEDICATIONS: His current home medication list reviewed. ALLERGIES: To lisinopril, caused cough. REVIEW OF SYSTEMS: HEENT/Neck: Patient has no history of glaucoma. No history of TIA or CVA. No history of seizure disorder. No history of Parkinson disease. No history of asthma, COPD. Does have a history of obstructive sleep apnea, nonadherent with CPAP. No history of recent pulmonary infection. History of coronary artery disease, hypertension, hyperlipidemia. No syncopal episode. History of cardiomyopathy/congesti ve heart failure. No PND or orthopnea. No syncopal episode. No history of bleeding peptic ulcer disease, hepatitis, colitis. Does have mild GERD. He takes medicine on as needed basis. No melenic stools. Good appetite. Regular bowel movement. No chronic dysuria, hematuria, renal calculi. At least twice a night micturition. History of diabetes without diabetic retinopathy or neuropathy. No history of DVTs, paresthesia of feet, or bleeding diathesis. History of depression. History of prostate cancer, status post prostatectomy. PHYSICAL EXAM: GENERAL: Elderly gentleman, the patient is alert and oriented. HEENT: Sclerae anicteric. Neck: No thyromegaly appreciated. No carotid bruit. No lymphadenopathy of neck. Good carotid pulse felt. Lungs: Clear to auscultation bilaterally. No wheezing, rales present. Cardiovascular: S1, S2. Regular rhythm. No murmur, gallop, or rub appreciated. Abdomen: Soft, obese, nontender, nondistended. No mass felt. Lower extremities: No ankle edema noted. IMPRESSION: 1. Osteoarthritis, status post right total hip arthroplasty. Deep venous thrombosis prophylaxis with aspirin 81 mg twice a day. 2. Hyperlipidemia. Continue statins. 3. Diabetes mellitus type 2. Continue oral hypoglycemic medication and sliding scale. 4. Coronary artery disease. Continue metoprolol. 5. GI prophylaxis with Protonix. 6. Obstructive sleep apnea, nonadherent with CPAP. 7. Hold other medication for now. Thank you very much for kind referral. Continue to follow him while in the hospital. Antoine Lou M.D. Internal Medicine KAREN:[id number] [facility] OPERATIVE NOon 04-08-2024 OPERATIVE NO HNO ID: [id number] Author: NAKUL MADDOX MD Service: Orthopaedic Surgery Author Type: Physician Type: Operative Report Filed: 04/08/2024 09:16 Note Text: PATIENT NAME: Destiney Ocampo CSN: [id number] LOG ID: [id number] Surgery Date: 04/08/2024 Surgeon(s) and Steam Heating Installer(s): Breonna LEMA - Assisting Surgeons and Role: * Nakul Maddox MD - Primary * Ryan Navarro MD - Resident - Assisting * Rick Tucker MD - Resident - Assisting 22 modifier none BMI: Estimated body mass index is 34.7 kg/m? as calculated from the following: Height as of 03/22/24: 167.6 cm (5' 6). Weight as of 03/22/24: 97.5 kg (215 lb). Procedure(s): Procedure(s) (LRB): ARTHROPLASTY ACETABULAR AND PROX FEM PROSTH TOTAL HIP ANTERIOR APPROACH (Right) Anesthesia: Spinal Incision Start: 8:06 AM Incision Stop: 9:16 AM Attestation: I was present for and performed all critical portions of the case. Residents were present and necessary for safe patient positioning, sterile prepping and draping, assistance, positioning and protection, soft tissue retraction, protection of vital structures and suture management during the case, and superficial wound closure. Also critical for safe transit to the recovery room in stable condition. Preop Diagnosis: Pre-Op Diagnosis Codes: * Primary osteoarthritis of both hips [M16.0] Postop Diagnosis: Same as Pre-Op Diagnosis Codes: * Primary osteoarthritis of both hips [M16.0] Implants: Barbara G7 52mm, 36 neutral liner poly, Z1 stem high offset 36 + 0mm ceramic head Problem List: ACTIVE PROBLEM LIST Pure Hypercholesterolemia Diverticulosis of Colon (Without Mention of Hemorrhage) PAIN HIP JOINT Diaphragmatic Hernia ESOPHAGITIS REFLUX Acute Gastritis Without Mention of Hemorrhage Benign Neoplasm of Colon Hypertension Diabetes Mellitus Type 2, Controlled, Without Complications (Hcc) Neck Pain Cervical Radiculopathy Midline Thoracic Back Pain Numbness and Tingling of Right Upper Extremity Numbness and Tingling in Left Upper Extremity Cervical Spondylosis Without Myelopathy Shoulder Arthritis Prostate Cancer (Hcc) Pulmonary Nodule/Lesion, Solitary RAJI (obstructive sleep apnea) AHI 39 Complaints of Memory Disturbance Abnormal X-Ray Chronic Fatigue Headaches Diplopia Cardiomyopathy (Hcc) Coronary Artery Disease Involving [place] Coronary Artery of [place] Heart Without Angina Pectoris Primary Osteoarthritis of Both Hips OPERATIVE INDICATIONS: The patient has a history of progressive right hip pain and arthritis. Their hip pain is severe with activity and has progressed significantly over time . X-rays reveal [id number] loss of articular cartilage of the hip with osteophytes consistent with advanced hip osteoarthritis. Non-operative treatment has been attempted, but is now ineffective at controlling symptoms during normal daily activities. Motion has become limited and rotation severely restricted. A total hip arthroplasty was recommended at this time. The risks, benefits and potential complications of the arthroplasty surgery were discussed with the patient in detail. Specific details of the procedure, hospitalization, recovery, rehabilitation, and long-term precautions were also provided. Pre-operative teaching was provided. Implant/prosthesis selection was outlined, and the many options available were explained; the final choice will be made at the time of the procedure to match the anatomy and condition of the bone, ligaments, tendons, and muscles. Understanding of all topics was conveyed to me by the patient, and consent was given to proceed with a right total hip arthroplasty. The patient was evaluated medically for pre-operative optimization. Michelle-operative blood management and the potential for blood transfusion were discussed with risks and options clearly outlined. OPERATIVE PROCEDURE: The patient was identified and brought into the Operating Room by the anesthesia and nursing team. Satisfactoryl anesthesia was successfully performed. Intravenous antibiotic prophylaxis dosing was confirmed. The patient was then positioned in the lateral decubitus position with the assistance of a pegboard. An axillary roll was placed, and all other pressure points were checked and padded. The hip was then examined and restrictions noted. A relative leg length assessment was carried out. The leg was then prepped and draped in the usual sterile fashion. A surgical time-out was performed immediately preceding the incision with all personnel in the operating room; the patient identity was again confirmed, the surgical site and extremity were identified and confirmed, X-rays were reviewed, and availability of the appropriate surgical equipment was established. The hip was then exposed through a skin incision that was just anterior to the proximal femur. Skin incision was carried through subcutaneou (more content not included)... [facility] Pathology biopsy report Phill (Tiss)on 04-08-2024 CASE REPORT [facility] Comment on above: Order Comment: Speci men Type: TISSUE SPECIMENOrdering Facility: [facility] Address: [address] [place] [address] Result Comment: [facility] Pathology Report Case: [id number] Authorizing Provider: Nakul Maddox, Collected: 04/08/2024 08:16 AM Ordering Location: [facility] Surgery Received: 04/08/2024 10:21 AM Pathologist: Diana Gonzalez MD Specimen: Femoral Head, Right Performed By: #### 6 6121-5 ####[facility] LABCLIA [id number] [address] [place] [address] [place] CLINICAL HISTORY Normal [facility] Comment on above: Order Comment: Speci men Type: TISSUE SPECIMENOrdering Facility: [facility] Address: [address] [place] [address] Result Comment: Pre- op diagnosis: Primary osteoarthritis of both hips [M16.0] Performed By: #### 6 6121-5 ####[facility] LABCLIA [id number] [address] [place] FINAL DIAGNOSIS [facility] Comment on above: Order Comment: Speci men Type: TISSUE SPECIMENOrdering Facility: [facility] Address: [address] [place] [address] Result Comment: A. F emoral head, right, arthroplasty: - Degenerative joint disease. at 1503 EST Performed By: #### 6 6121-5 ####[facility] LABCLIA [id number] [address], [place] [address] [place] [address] [place] FINAL PERFORMING LAB Normal [facility] Comment on above: Order Comment: Speci men Type: TISSUE SPECIMENOrdering Facility: [facility] Address: [address] [place] [address] Result Comment: Diag nostic interpretation performed at: [facility], [address] [place] [address] CLIA# [id number] Blood Typer: Thom Vidales MD Performed By: #### 6 6121-5 ####[facility] LABCLIA [id number] [address] [place] [address] [place] GROSS DESCRIPTION Normal [facility] Comment on above: Order Comment: Speci men Type: TISSUE SPECIMENOrdering Facility: [facility] Address: [address] [place] [address] Result Comment: A. F emoral Head, Right Received in formalin labeled femoral head, right is a 5.3 x 4.1 x 3.7 cm femoral head. The articular surface displays granularity. Moderate osteophyte formation is present along the periphery. Sectioning reveals hard trabecular bone beneath the areas of granularity. No subchondral cysts or necrosis are grossly identified. Industrial Waste Inspector sections are submitted in cassette A1 after decalcification in formic acid. [place] [address] JXM 04/08/24 3:55 PM Performed By: #### 6 6121-5 ####[facility] LABCLIA [id number] [address] THERAPY NTon 04-08-2024 THERAPY NT HNO ID: [id number] Author: DONNELL RAMSEY PT Service: Physical Therapy Author Type: Physical Therapist Type: Therapy (PT/OT/Speech/Resp) Filed: 04/08/2024 16:46 Note Text: Summary: PT evaluation Physical Therapy Evaluation Summary SERVICE DATE: 04/08/2024 SERVICE TIME: 1546 to 1627 ROOM: [place] [address] PT 6 Clicks Score: 18 Total Joint Replacement Discharge Readiness: Pending Physical Therapy Clearance DISCHARGE RECOMMENDATIONS Home PT Recommended Discharge Disposition Comments: Patient with new onset of pain, weakness, limited ROM, impaired balance, and impaired safety awareness,causing him to require assistance with mobility. Home health PT is indicated to address his impairments and promote return to prior level of independence and mobility. Recommended Discharge Equipment: No equipment needs anticipated ASSESSMENT Response to Therapy Interventions: Good Participation in Activities, Improved Tolerance for Activity, On-Track to Achieve Discharge Goals, Pain, Notable Progression with Functional Activities/Skills, Needs Frequent Redirection or Reinstruction, Requires Additional Time to Complete Activities Patient functioning below baseline, requiring CGA/Andrey and use of a wheeled walker for mobility. Good carryover with techniques to maintain hip precautions and WB restrictions throughout PT session. PRECAUTIONS Bed/Chair Alarm, Fall Risk, Lines/Tubes/Drains, Weight Bearing Restrictions, Anterior Hip Precautions no flexion past 90 degrees, no hip abduction, no hip extension, no ER Right Lower Extremity Weight Bearing Status: 50% PWB CURRENT HOSPITAL COURSE RLE anterior INES Relevant Past Medical History: Diverticulosis of colon, HLD, RAJI, CAD, cardiomyopathy, prostate Ca, pulmonary nodule, cervical spondylosis, DM, HTN, HLD HOME LIVING Patient Lives With: Spouse, Other: See Comment Comments: and dog Assistance Available: 24-Hour Entry To Home: Stairs, Without Rail Number Of Stairs Into Home: 2 (2 curb steps) Number Of Stairs To Bed/Bath: 0 Tub/Shower Type: tub/shower combo with shower chair and hand held shower Laundry: in basement, spouse completes. Equipment Owned: Walker- Wheeled, Commode- Raised, Lift Chair, Shower Chair, Hand Held Shower, Cane PRIOR FUNCTIONAL LEVEL Within Functional Limits Indep with mobility and ADL tasks without device. Spouse completes IADL tasks. Denies falls in the last 6 months. +driving. SUBJECTIVE Patient resting in bed upon approach. Alert and agreeable to PT evaluation THERAPY DIAGNOSIS Reduced mobility-other, Muscle Weakness (generalized) TREATMENT INTERVENTIONS Evaluation, Therapeutic Activity (40492), Gait Training (35175) Timed Code Treatment (minutes): 25 Skilled Treatment Time (minutes): 41 $ Evaluation-Low (63687) Billed Units: 1 unit Therapeutic Activity (93733) Treatment Minutes: 11 $ Therapeutic Activity (11106) Billed Units: 1 unit Gait Training (16020) Treatment Minutes: 14 $ Gait Training (11596) Billed Units: 1 unit TRAINING AND EDUCATION PROVIDED Advanced Balance Activities, Assistive Device Use, Bed Mobility, Benefits of In-Hospital Mobility, Discharge Planning, Energy Conservation, Expected Functional Level, Falls Prevention, Gait Pattern, Reduction of Deviations, Home Safety, Role of Physical Therapy, Standing Balance, Transfers, Positioning, Handout Issued THERAPEUTIC SKILLS USED Activity Dosing, Cuing Tactile, Cuing Verbal, Facilitation of Joint Range of Motion, Movement Facilitation, Physical Assist, Postural Alignment Correction, Assessment of Tolerance Including Vitals Response to Activity, Management of Critical Lines, Tubes and/or Drains FUNCTIONAL STATUS Bed Mobility Supine To Sit: Minimal Assistance, Additional Information HOB elevated to 30 degrees with assist to RLE and cues for positioning. Sit to Supine: Minimal Assistance, Additional Information HOB flat with assistance to RLE and cues for positioning. Scooting: Contact Guard Assistance, Additional Information cues for hand and foot placement. Transfers Sit To Stand: Minimal Assistance, Contact Guard Assistance, Additional Information cues for hand and foot placement. Progression from Andrey to CGA with repetition. Education on the selecting elevated chairs and chairs with arms. Stand To Sit: Contact Guard Assistance, Additional Information cues for hand and foot placement and eccentric control Bed to Chair Contact Guard Assistance, Additional Information Bed To Chair Transfer Type: Stepping Bed To Chair Transfer Equipment: Wheeled Walker Cues for safe approach with walker and safe hand and foot placement. Gait Contact Guard Assistance, Additional Information pre-gait with heel raises and cues for UE support CGA 1 x 10. Gait training (more content not included)... [facility] XR PELVIS 1V APon 04-08-2024 XR PELVIS 1V AP * * *Final Report* * * DATE OF EXAM: Apr 08 2024 10:08AM MDX 5239 - XR PELVIS 1V AP / PROCEDURE REASON: Post-operative / post-procedure assessment * * * * Physician Interpretation * * * * PROCEDURE: Pelvis INDICATION: Post-operative / post-procedure assessment.POST OP TECHNIQUE: XR PELVIS 1V AP COMPARISON: 12/10/2023 FINDINGS: There is a new right total hip arthroplasty in satisfactory position with associated postoperative soft tissue changes. No fracture. IMPRESSION: Postop right INES without radiographic complication Manager Flight: HELADIO Transcribe Date/Time: Apr 08 2024 10:11A Dictated by : AVA ADAM MD This examination was interpreted and the report reviewed and electronically signed by: AVA ADAM MD on Apr 08 2024 10:11AM EST [id number] [facility] XR PELVIS 1V AP * * *Final Report* * * DATE OF EXAM: Apr 08 2024 9:09AM MDR 5239 - XR PELVIS 1V AP / PROCEDURE REASON: TOTAL RIGHT HIP REPLACEMENT * * * * Physician Interpretation * * * * PROCEDURE: Pelvis INDICATION: TOTAL RIGHT HIP REPLACEMENT.total right hip replacement per care team TECHNIQUE: XR PELVIS 1V AP COMPARISON: 12/10/2023 FINDINGS/ IMPRESSION: AP image was obtained in the operating room during right total hip arthroplasty. Acetabular component and trial femoral component appear in satisfactory position. No acute fracture. Manager Flight: PSCB Transcribe Date/Time: Apr 08 2024 9:12A Dictated by : AVA ADAM MD This examination was interpreted and the report reviewed and electronically signed by: AVA ADAM MD on Apr 08 2024 9:14AM EST [id number] [facility] 03-31-2024 JOHNN Telephone (ORMDNA) DESTINEY OCAMPO ([id number]) 1950 M Date Time Provider Department 03/31/24 NAKUL MADDOX During your visit today, we recorded the following information about you: Maria Fernanda Win 03/31/2024 11:32 AM Signed Patient scheduled for surgery on 04-08-2024 and still plans on and wants to proceed. He is getting over the flu. His was diagnosed with influenza A. He needs to make sure that it is okay that he still proceed because he needs to start changing some of his medications and stopping some etc. If you could call him back today he would appreciate it. He can be reached at [phone]. Katie Spring, CHRISTOPH 03/31/2024 2:08 PM Signed Informed pt. Allergies As of Date: 03/31/2024 Noted Allergy Reaction LISINOPRIL 08/25/2012 3 - Cough Date Reviewed: 03/22/2024 Reviewed by: Siomara Luong APRN.LEISURE TRAVEL AGENT - Fully Assessed Reason for Visit: Patient Question [6917] Prescriptions as of 03/31/2024 - metFORMIN ER (GLUCOPHAGE XR) 500 mg 24 hr tablet Take 1 tablet by mouth two times a day with meals. with breakfast and dinner - MELOXICAM ORAL DAILY - mupirocin (BACTROBAN) 2 % ointment Apply 0.5 inch with cotton swab (Q-tip) to each nostril in the morning and evening for 5 days prior to and including day of surgery. - cyanocobalamin, vitamin B-12, (VITAMIN B-12 ORAL) Take by mouth. - FOLIC ACID ORAL Take by mouth. - fluticasone propionate (FLONASE NASAL) Use in the nose. - ketoconazole (NIZORAL) 2 % cream Apply 1 application to affected area two times a day. Continue for 1 week after rash resolves. - metoprolol succinate ER (TOPROL XL) 25 mg 24 hr tablet Take 1 tablet by mouth once daily. - omeprazole (PRILOSEC) 20 mg capsule Take 1 capsule by mouth two times a day. - nystatin (MYCOSTATIN) powder Apply 1 application to affected area four times daily. Continue to use for a week after rash resolves. Use as needed for recurrences - ENTRESTO 49-51 mg tablet Take 1 tablet by mouth two times a day. (getting from patient assistance) - famotidine (PEPCID) 20 mg tablet Take 1 tablet by mouth at bedtime as needed. - Magnesium 250 mg tab Take 1 tablet by mouth two times a day. - Cholecalciferol, Vitamin D3, 50 mcg (2,000 unit) cap Take 1 capsule by mouth once daily. - atorvastatin (LIPITOR) 40 mg tablet TAKE 1 TABLET BY MOUTH EVERY DAY FOR 90 DAYS - aspirin 81 mg chewable tablet Take 81 mg by mouth. - COMPOUNDED PRESCRIPTION Generic Glucometer - I each 50 strips and lancets. Re: Diabetes mellitus controlled with hypoglycemia. - Lancets lancets Test blood sugar(s) 1-2 times daily or as directed. Dx: Type 2 DM - Controlled E11.9 Insulin: No - blood sugar diagnostic (BLOOD GLUCOSE TEST) test strip Test blood sugar(s) 1-2 times daily or as directed. Dx: Type 2 DM - Controlled E11.9 Insulin: No - Blood-Glucose Meter monitoring kit Glucose Meter of Choice (per insurance coverage)- Kit - Dx: Type 2 DM - Controlled E11.9, Test 1-2 times a day or as directed. No insulin - DOCUSATE CALCIUM (STOOL SOFTENER ORAL) Take by mouth as needed. Problem List As Of Date 03/31/2024 Noted Resolved PURE HYPERCHOLESTEROLEM [E78.00] DIVERTICULOSIS OF COLON W/O BLEED [K57.30] Dysthymic disorder [F34.1] 01/03/2021 PAIN HIP JOINT [M25.559] 01/17/2006 DEPRESSION RECURRENT( Moderate) [F33.1] 01/17/2006 05/22/2023 SOMNOLENCE [R40.4] 01/17/2006 01/03/2021 Headache(784.0) [R51] 01/17/2006 11/21/2014 Abdominal pain, other specified site [R10.9] 12/17/2006 11/21/2014 Diaphragmatic hernia [K44.9] 04/24/2007 GASTRITIS ANTRAL( W/O Hemorrhage) [K29.60] 04/24/2007 11/21/2014 ESOPHAGITIS REFLUX [K21.00] 04/24/2007 HEMORRHOIDS INTERNAL [K64.8] 04/24/2007 11/21/2014 ACUTE GASTRITIS W/O HEMORRHAGE [K29.00] 04/24/2007 BENIGN NEOPLASM LG BOWEL [D12.6] 04/24/2007 Hypertension [I10] 07/24/2011 Trigger middle finger of right hand [M65.331] 08/29/2011 01/03/2021 Trigger index finger of right hand [M65.321] 08/29/2011 07/16/2016 Diabetes mellitus type 2, controlled, without c*08/15/2014 Neck pain [M54.2] 08/16/2014 Cervical radiculopathy [M54.12] 08/16/2014 Midline thoracic back pain [M54.6] 09/01/2014 Neck pain on left side [M54.2] 09/01/2014 01/03/2021 Numbness and tingling of right upper extremity *09/01/2014 Numbness and tingling in left upper extremity [*09/01/2014 Cervical spondylosis without myelopathy [M47.81*09/01/2014 Benign non-nodular prostatic hyperplasia with l*11/21/2014 02/02/2024 Shoulder arthritis [M19.019] 10/05/2015 Prostate cancer (HCC) [C61] 01/16/2017 Pulmonary nodule/lesion, solitary [R91.1] 01/16/2017 RAJI (obstructive sleep apnea) AHI 39 [G47.33] 06/15/2017 Malaise and fatigue [R53.81, R53.83] 06/18/2017 01/03/2021 Complaints of memory disturbance [R41.3] 06/18/2017 H/O concussion [Z87.820] 06/18/2017 (more content not included)... [facility] (ME2E[facility] DESTINEY OCAMPO ([id number]) 1950 Date Time Provider Department 03/25/24 NAKUL MADDOX TN2E During your visit today, we recorded the following information about you: Melquiades Almazan PSS 03/25/2024 11:48 AM Signed TOTAL JOINT COMPLETE CARE PROGRAM PRE-OPERATIVE TEACHING Service Date: 03/25/2024 Service Time: 11:45 AM Date of : 1950 Gender: male Date of Surgery: 04/08/24 Procedure: Right Total Hip Replacement ant. Complete Care Program was discussed with the patient: Inspector Eyeglass Identification: Patient identified a home care attendant to help when discharged to home: Home Environment: Home Layout: Ranch, Entry Steps: 0, Bedroom Location: 1st floor, Bathroom Location: 1st floor, and tub shower. Pt owns walker, crutches, cane, tall toilets and shower chair, lift chair. Discussed with patient importance of attending joint education class and provided date and times of class: YES declined. Patient received Joint Education Binder: Yes Patient plans discharge home with [facility]. SIGNATURE: MEGHA Rodas PATIENT NAME: Destiney Ocampo DATE: March 25, 2024 TIME: 6:31 AM Allergies As of Date: 03/25/2024 Noted Allergy Reaction LISINOPRIL 08/25/2012 3 - Cough Date Reviewed: 03/22/2024 Reviewed by: Siomara Luong APRN.LEISURE TRAVEL AGENT - Fully Assessed Reason for Visit: Pre-Op Teaching [134] Prescriptions as of 03/25/2024 - MELOXICAM ORAL DAILY - mupirocin (BACTROBAN) 2 % ointment Apply 0.5 inch with cotton swab (Q-tip) to each nostril in the morning and evening for 5 days prior to and including day of surgery. - cyanocobalamin, vitamin B-12, (VITAMIN B-12 ORAL) Take by mouth. - FOLIC ACID ORAL Take by mouth. - fluticasone propionate (FLONASE NASAL) Use in the nose. - ketoconazole (NIZORAL) 2 % cream Apply 1 application to affected area two times a day. Continue for 1 week after rash resolves. - metFORMIN ER (GLUCOPHAGE XR) 500 mg 24 hr tablet Take 1 tablet by mouth daily with breakfast. - metoprolol succinate ER (TOPROL XL) 25 mg 24 hr tablet Take 1 tablet by mouth once daily. - omeprazole (PRILOSEC) 20 mg capsule Take 1 capsule by mouth two times a day. - nystatin (MYCOSTATIN) powder Apply 1 application to affected area four times daily. Continue to use for a week after rash resolves. Use as needed for recurrences - ENTRESTO 49-51 mg tablet Take 1 tablet by mouth two times a day. (getting from patient assistance) - famotidine (PEPCID) 20 mg tablet Take 1 tablet by mouth at bedtime as needed. - Magnesium 250 mg tab Take 1 tablet by mouth two times a day. - Cholecalciferol, Vitamin D3, 50 mcg (2,000 unit) cap Take 1 capsule by mouth once daily. - atorvastatin (LIPITOR) 40 mg tablet TAKE 1 TABLET BY MOUTH EVERY DAY FOR 90 DAYS - aspirin 81 mg chewable tablet Take 81 mg by mouth. - COMPOUNDED PRESCRIPTION Generic Glucometer - I each 50 strips and lancets. Re: Diabetes mellitus controlled with hypoglycemia. - Lancets lancets Test blood sugar(s) 1-2 times daily or as directed. Dx: Type 2 DM - Controlled E11.9 Insulin: No - blood sugar diagnostic (BLOOD GLUCOSE TEST) test strip Test blood sugar(s) 1-2 times daily or as directed. Dx: Type 2 DM - Controlled E11.9 Insulin: No - Blood-Glucose Meter monitoring kit Glucose Meter of Choice (per insurance coverage)- Kit - Dx: Type 2 DM - Controlled E11.9, Test 1-2 times a day or as directed. No insulin - DOCUSATE CALCIUM (STOOL SOFTENER ORAL) Take by mouth as needed. Problem List As Of Date 03/25/2024 Noted Resolved PURE HYPERCHOLESTEROLEM [E78.00] DIVERTICULOSIS OF COLON W/O BLEED [K57.30] Dysthymic disorder [F34.1] 01/03/2021 PAIN HIP JOINT [M25.559] 01/17/2006 DEPRESSION RECURRENT( Moderate) [F33.1] 01/17/2006 05/22/2023 SOMNOLENCE [R40.4] 01/17/2006 01/03/2021 Headache(784.0) [R51] 01/17/2006 11/21/2014 Abdominal pain, other specified site [R10.9] 12/17/2006 11/21/2014 Diaphragmatic hernia [K44.9] 04/24/2007 GASTRITIS ANTRAL( W/O Hemorrhage) [K29.60] 04/24/2007 11/21/2014 ESOPHAGITIS REFLUX [K21.00] 04/24/2007 HEMORRHOIDS INTERNAL [K64.8] 04/24/2007 11/21/2014 ACUTE GASTRITIS W/O HEMORRHAGE [K29.00] 04/24/2007 BENIGN NEOPLASM LG BOWEL [D12.6] 04/24/2007 Hypertension [I10] 07/24/2011 Trigger middle finger of right hand [M65.331] 08/29/2011 01/03/2021 Trigger index finger of right hand [M65.321] 08/29/2011 07/16/2016 Diabetes mellitus type 2, controlled, without c*08/15/2014 Neck pain [M54.2] 08/16/2014 Cervical radiculopathy [M54.12] 08/16/2014 Midline thoracic back pain [M54.6] 09/01/2014 Neck pain on left side [M54.2] 09/01/2014 01/03/2021 Numbness and tingling of right upper extremity *09/01/2014 Numbness and tingling in left upper extremity [*09/01/2014 Cervical spondylosis without myelopathy [M47.81*09/01/2014 Benign non-nodular prostatic hyperplasi (more content not included)... Normal [facility] CBC W Auto Differential pane l (Bld)on 03-22-2024 Basophils (Bld) [#/Vol] 0.05 10*3/uL Normal <0.11 [facility] Comment on above: Order Comment: Speci men Type: BLOOD SPECIMENOrdering Facility: [facility] Address: [address] [place] [address] Performed By: #### 5 7021-8 ####[facility] [id number] [place] [address] [place] Basophils/100 WBC (Bld) 0.6 % Normal [facility] Comment on above: Order Comment: Speci men Type: BLOOD SPECIMENOrdering Facility: [facility] Address: [address] [place] [address] Performed By: #### 5 7021-8 ####[facility] [id number] [place] [address] [place] Differential cell count method Nom (Bld) Auto Normal [facility] Comment on above: Order Comment: Speci men Type: BLOOD SPECIMENOrdering Facility: [facility] Address: [address] [place] [address] Performed By: #### 5 7021-8 ####[facility] [id number] [place] [address] [place] Eosinophils (Bld) [#/Vol] 0.42 10*3/uL Normal <0.46 [facility] Comment on above: Order Comment: Speci men Type: BLOOD SPECIMENOrdering Facility: [facility] Address: [address] [place] [address] Performed By: #### 5 7021-8 ####[facility] AMINA [id number] [place] [address] [place] Eosinophils/100 WBC (Bld) 5.0 % Normal [facility] Comment on above: Order Comment: Speci men Type: BLOOD SPECIMENOrdering Facility: [facility] Address: [address] [place] [address] Performed By: #### 5 7021-8 ####[facility] LIVIERARBOLESLINDADAVY [id number] [place] [address] [place] Erythrocyte distribution width (RBC) [Ratio] 13.1 % Normal 11.5-15.0 [facility] Comment on above: Order Comment: Speci men Type: BLOOD SPECIMENOrdering Facility: [facility] Address: [address] [place] [address] Performed By: #### 5 7021-8 ####[facility] LIVIERARBOLESBRANDON [id number] [place] [address] [place] Hematocrit (Bld) [Volume fraction] 45.9 % Normal 39.0-51.0 [facility] Comment on above: Order Comment: Speci men Type: BLOOD SPECIMENOrdering Facility: [facility] Address: [address] [place] [address] Performed By: #### 5 7021-8 ####[facility] LIVIERARBOLESANABELA [id number] [place] [address] [place] Hemoglobin (Bld) [Mass/Vol] 14.7 g/dL Normal 13.0-17.0 [facility] Comment on above: Order Comment: Speci men Type: BLOOD SPECIMENOrdering Facility: [facility] Address: [address] [place] [address] Performed By: #### 5 7021-8 ####[facility] MILLWNCLIA [id number] [place] [address] [place] Immature granulocytes (Bld) [#/Vol] 0.03 10*3/uL Normal <0.10 [facility] Comment on above: Order Comment: Speci men Type: BLOOD SPECIMENOrdering Facility: [facility] Address: [address] [place] [address] Performed By: #### 5 7021-8 ####[facility] [id number] [place] [address] [place] Immature granulocytes/100 WBC (Bld) 0.4 % Normal [facility] Comment on above: Order Comment: Speci men Type: BLOOD SPECIMENOrdering Facility: [facility] Address: [address] [place] [address] Performed By: #### 5 7021-8 ####[facility] [id number] [place] [address] [place] Lymphocytes (Bld) [#/Vol] 2.42 10*3/uL Normal 1.00-4.00 [facility] Comment on above: Order Comment: Speci men Type: BLOOD SPECIMENOrdering Facility: [facility] Address: [address] [place] [address] Performed By: #### 5 7021-8 ####[facility] PORT ORANGEWNCLIA [id number] [place] [address] [place] Lymphocytes/100 WBC (Bld) 29.1 % Normal [facility] Comment on above: Order Comment: Speci men Type: BLOOD SPECIMENOrdering Facility: [facility] Address: [address] [place] [address] Performed By: #### 5 7021-8 ####[facility]ITALNCL[facility] [id number] [place] [address] [place] MCH (RBC) [Entitic mass] 27.1 pg Normal 26.0-34.0 [facility] Comment on above: Order Comment: Speci men Type: BLOOD SPECIMENOrdering Facility: [facility] Address: [address] [place] [address] Performed By: #### 5 7021-8 ####[facility] HOSPITALNCDAISY [id number] [place] [address] [place] MCHC (RBC) [Mass/Vol] 32.0 g/dL Normal 30.5-36.0 [facility] Comment on above: Order Comment: Speci men Type: BLOOD SPECIMENOrdering Facility: [facility] Address: [address] [place] [address] Performed By: #### 5 7021-8 ####[facility] [id number] [place] [address] [place] MCV (RBC) [Entitic vol] 84.5 fL Normal 80.0-100.0 [facility] Comment on above: Order Comment: Speci men Type: BLOOD SPECIMENOrdering Facility: [facility] Address: [address] [place] [address] Performed By: #### 5 7021-8 ####[facility] [id number] [place] [address] [place] Monocytes (Bld) [#/Vol] 0.55 10*3/uL Normal <0.87 [facility] Comment on above: Order Comment: Speci men Type: BLOOD SPECIMENOrdering Facility: [facility] Address: [address] [place] [address] Performed By: #### 5 7021-8 ####[facility]ITALNCL[facility] [id number] [place] [address] [place] Monocytes/100 WBC (Bld) 6.6 % Normal [facility] Comment on above: Order Comment: Speci men Type: BLOOD SPECIMENOrdering Facility: [facility] Address: [address] [place] [address] Performed By: #### 5 7021-8 ####[facility] LIVIERVICKEYLIA [id number] [place] [address] [place] Neutrophils (Bld) [#/Vol] 4.85 10*3/uL Normal 1.45-7.50 [facility] Comment on above: Order Comment: Speci men Type: BLOOD SPECIMENOrdering Facility: [facility] Address: [address] [place] [address] Performed By: #### 5 7021-8 ####[facility] [id number] [place] [address] [place] Neutrophils/100 WBC (Bld) 58.3 % Normal [facility] Comment on above: Order Comment: Speci men Type: BLOOD SPECIMENOrdering Facility: [facility] Address: [address] [place] [address] Performed By: #### 5 7021-8 ####[facility] [id number] [place] [address] [place] Nucleated RBC (Bld) [#/Vol] 10*3/uL Normal <0.01 [facility] Comment on above: Order Comment: Speci men Type: BLOOD SPECIMENOrdering Facility: [facility] Address: [address] [place] [address] Performed By: #### 5 7021-8 ####[facility] [id number] [place] [address] [place] Nucleated RBC/100 WBC (Bld) [Ratio] 0.0 /100 WBC Normal [facility] Comment on above: Order Comment: Speci men Type: BLOOD SPECIMENOrdering Facility: [facility] Address: [address] [place] [address] Performed By: #### 5 7021-8 ####[facility] LIVIERWNCLIA [id number] [place] [address] [place] Platelet mean volume (Bld) [Entitic vol] 11.6 fL Normal 9.0-12.7 [facility] Comment on above: Order Comment: Speci men Type: BLOOD SPECIMENOrdering Facility: [facility] Address: [address] [place] [address] Performed By: #### 5 7021-8 ####[facility]ITALNCL[facility] [id number] [place] [address] [place] Platelets (Bld) [#/Vol] 144 10*3/uL Low 150-400 [facility] Comment on above: Order Comment: Speci men Type: BLOOD SPECIMENOrdering Facility: [facility] Address: [address] [place] [address] Performed By: #### 5 7021-8 ####[facility]ITALN[facility] [id number] [place] [address] [place] RBC (Bld) [#/Vol] 5.43 10*6/uL Normal 4.20-6.00 [facility] Comment on above: Order Comment: Speci men Type: BLOOD SPECIMENOrdering Facility: [facility] [facility] Address: [address] [place] [address] Performed By: #### 5 7021-8 ####JAY HOSPITALNCLIA [id number] [place] [address] [place] WBC (Bld) [#/Vol] 8.32 10*3/uL Normal 3.70-11.00 [facility] Comment on above: Order Comment: Speci men Type: BLOOD SPECIMENOrdering Facility: [facility] Address: [address] [place] [address] Performed By: #### 5 7021-8 ####JAY HOSPITALNCLIA [id number] [place] [address] [place] Comprehensive metabolic 2000 panelon 03-22-2024 Albumin [Mass/Vol] 4.3 g/dL Normal 3.9-4.9 [facility] Comment on above: Order Comment: Speci men Type: BLOOD SPECIMENOrdering Facility: [facility] Address: [address] [place] [address] Performed By: #### 1 9123-9, 95704-6 ####JAY HOSPITALNCLIA [id number] [place] [address] [place] ALP [Catalytic activity/Vol] 79 U/L Normal 38-113 [facility] Comment on above: Order Comment: Speci men Type: BLOOD SPECIMENOrdering Facility: [facility] Address: [address] [place] [address] Performed By: #### 1 9123-9, 29583-5 ####[facility] HEALTHCARELIA [id number] [place] [address] [place] ALT [Catalytic activity/Vol] 14 U/L Normal 10-54 [facility] Comment on above: Order Comment: Speci men Type: BLOOD SPECIMENOrdering Facility: [facility] Address: [address] [place] [address] Performed By: #### 1 9123-9, 85362-2 ####[facility] [id number] [place] [address] [place] Anion gap [Moles/Vol] 7 mmol/L Low 8-15 [facility] Comment on above: Order Comment: Speci men Type: BLOOD SPECIMENOrdering Facility: [facility] Address: [address] [place] [address] Performed By: #### 1 9123-9, 34211-2 ####JAY HOSPITALNCLIA [id number] [place] [address] [place] AST [Catalytic activity/Vol] 15 U/L Normal 14-40 [facility] Comment on above: Order Comment: Speci men Type: BLOOD SPECIMENOrdering Facility: [facility] Address: [address] [place] [address] Performed By: #### 1 9123-9, 27679-2 ####[facility] MILLTOWNCLIA [id number] [place] [address] [place] Bilirubin [Mass/Vol] 1.1 mg/dL Normal 0.2-1.3 [facility] Comment on above: Order Comment: Speci men Type: BLOOD SPECIMENOrdering Facility: [facility] Address: [address] [place] [address] Performed By: #### 1 9123-9, 31667-8 ####[facility] PORT ORANGEWNCLIA [id number] [place] [address] [place] Calcium [Mass/Vol] 9.6 mg/dL Normal 8.5-10.2 [facility] Comment on above: Order Comment: Speci men Type: BLOOD SPECIMENOrdering Facility: [facility] Address: [address] [place] [address] Performed By: #### 1 9123-9, 59847-8 ####JAY HOSPITALNCLIA [id number] [place] [address] [place] Chloride [Moles/Vol] 105 mmol/L Normal 98-107 [facility] Comment on above: Order Comment: Speci men Type: BLOOD SPECIMENOrdering Facility: [facility] Address: [address] [place] [address] Performed By: #### 1 9123-9, ####[facility] MILLTOWNCLIA [id number] [place] [address] [place] CO2 [Moles/Vol] 27 mmol/L Normal 22-30 [facility] Comment on above: Order Comment: Speci men Type: BLOOD SPECIMENOrdering Facility: [facility] Address: [address] [place] [address] Performed By: #### 1 9123-9, ####[facility] AYSHA JERSONNCLIA [id number] [place] [address] [place] Creatinine [Mass/Vol] 0.66 mg/dL Low 0.73-1.22 [facility] Comment on above: Order Comment: Speci men Type: BLOOD SPECIMENOrdering Facility: [facility] Address: [address] [place] [address] Performed By: #### 1 9123-9, ####JAY HOSPITALNCLIA [id number] [place] [address] [place] Creatinine and Glomerular filtration rate.predicted panel (S/P/Bld) 99 mL/min/1.73m??? Normal >=60 [facility] Comment on above: Order Comment: Speci men Type: BLOOD SPECIMENOrdering Facility: [facility] Address: [address] [place] [address] Result Comment: Kemi mated Glomerular Filtration Rate (eGFR) is calculated using the 2020 CKD-EPI creatinine equation. This equation utilizes serum creatinine, sex, and age as parameters. The creatinine assay has traceable calibration to isotope dilution-mass spectrometry. Refer to KDIGO guidelines for clinical interpretation. In patients with unstable renal function, e.g. those with acute kidney injury, the eGFR may not accurately reflect actual GFR. Performed By: #### 1 9123-9, ####JAY HOSPITALNCLIA [id number] [place] [address] [place] Glucose [Mass/Vol] 107 mg/dL High 74-99 [facility] Comment on above: Order Comment: Speci men Type: BLOOD SPECIMENOrdering Facility: [facility] Address: [address] [place] [address] Result Comment: The [place] Diabetes Association (ADA) provides guidance for cutoff values for fasting glucose and random glucose. The ADA defines fasting as no caloric intake for at least 8 hours. Fasting plasma glucose results between 100 to 125 mg/dL indicate increased risk for diabetes (prediabetes). Fasting plasma glucose results greater than or equal to 126 mg/dL meet the criteria for diagnosis of diabetes. In the absence of unequivocal hyperglycemia, results should be confirmed by repeat testing. In a patient with classic symptoms of hyperglycemia or hyperglycemic crisis, random plasma glucose results greater than or equal to 200 mg/dL meet the criteria for diagnosis of diabetes. Reference: Standards of Medical Care in Diabetes 2016, [place] Diabetes Association. Diabetes Care. 2016.39(Suppl 1). Performed By: #### 1 9123-9, 28416-9 ####[facility] HOSPITALVladimir [id number] [place] [address] [place] Potassium [Moles/Vol] 5.0 mmol/L Normal 3.7-5.1 [facility] Comment on above: Order Comment: Speci men Type: BLOOD SPECIMENOrdering Facility: [facility] Address: [address] [place] [address] Performed By: #### 1 9123-9, 93928-4 ####[facility] HOSPITALVladimir [id number] [place] [address] [place] Protein [Mass/Vol] 6.6 g/dL Normal 6.3-8.0 [facility] Comment on above: Order Comment: Speci men Type: BLOOD SPECIMENOrdering Facility: [facility] Address: [address] [place] [address] Performed By: #### 1 9123-9, 62656-5 ####[facility] HEALTHCAREDAISYA [id number] [place] [address] [place] Sodium [Moles/Vol] 139 mmol/L Normal 136-144 [facility] Comment on above: Order Comment: Speci men Type: BLOOD SPECIMENOrdering Facility: [facility] Address: [address] [place] [address] Performed By: #### 1 9123-9, 95864-3 ####[facility] AYSHA ARTHURWNCLIA [id number] [address] [place] Urea nitrogen [Mass/Vol] 17 mg/dL Normal 9-24 [facility] Comment on above: Order Comment: Speci men Type: BLOOD SPECIMENOrdering Facility: [facility] Address: [address] [place] [address] Performed By: #### 1 9123-9, 04119-6 ####[facility] AYSHA ARTHURWNCLIA [id number] [address] [place] HISTORY PHYSICALon HISTORY PHYSICAL HNO ID: [id number] Author: SIOMARA LUONG APRN.LEISURE TRAVEL AGENT Service: ? Author Type: Nurse Practitioner Type: H&P Filed: 03/25/2024 14:34 Note Text: [facility] HISTORY AND PHYSICAL EXAMINATION SERVICE DATE: 03/22/2024 SERVICE TIME: 2:33 PM PRIMARY CARE PHYSICIAN: Keren Arce MD Assessment Patient has the following medical conditions which may affect michelle-operative course: Cardiomyopathy (HCC) Assessment: controlled on rx, improved EF 45-% to 55% (echo 2021 per warehouse attendant note) after Entresto. Following [facility], last OV scanned into [facility] Coronary artery 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 angina pectoris Assessment: mild to moderate 2021 heart cath, c/w daily ASA, statin and BB. Denies CP, palpitations, sob, new or worsening cardiac symptoms Hypertension Assessment: controlled on rx Last 14 BP Last 14 Encounter BP Readings: Date: BP: 03/22/2024 128/80 01/30/2024 118/74 01/27/2024 105/78 12/24/2023 111/69 10/15/2023 106/68 03/30/2023 135/85 10/02/2022 110/72 07/26/2022 130/76 06/04/2022 91/73 05/09/2022 130/88 04/01/2022 110/72 11/20/2021 100/54 08/10/2021 118/72 01/01/2021 148/74 PURE HYPERCHOLESTEROLEM Assessment: c/w statin Diaphragmatic hernia Assessment: no hx surgical interventions RAJI (obstructive sleep apnea) AHI 39 Assessment: non-compliant with CPAP Pulmonary nodule/lesion, solitary Assessment: surveillance, last CT chest 2021 showing calcified granuloma ESOPHAGITIS REFLUX Assessment: controlled on rx Diabetes mellitus type 2, controlled, without complications (HCC) Assessment: controlled with oral agent, surgery initially Cx due to elevated A1c, new A1c pending Hemoglobin A1C (%) Date Value 03/22/2024 6.9 10/11/2020 7.5 Prostate cancer (HCC) Assessment: s/p prostatectomy, denies radiation Complaints of memory disturbance Assessment: following neurology Rizzo Activity Status Index: METS: Climb a flight of stairs or walk up a hill (5.50 METs) DASI Score: 5.5 Patient denies any chest pain or undue shortness of breath with the above physical activity. Clinical Frailty Scale: 3. Well, with treated comorbid disease STOP-Bang Score: Has or is being treated for high blood pressure Patient over 50 years old Has a large neck Male patient Denies snoring loudly Denies feeling tired, fatigued, or sleepy during the daytime Has not been observed to stop breathing or choking/gasping during sleep BMI less than or equal to 35 kg/m2 STOP-Bang Score: 4 [id number] Score: Age: 65-74 Sex: male CHF history: No Hypertension history: Yes Stroke/TIA/thromboembol ism history: No Vascular disease history: No Diabetes history: Yes [id number] Score: 3 ARISCAT Score: Age: 51-80 Preoperative SpO2: >=96% Respiratory infection in the last month: No Preoperative anemia: No Surgical incision: peripheral Duration of surgery: 2-3 hrs Emergency procedure: No ARISCAT Score: 19 ANESTHESIA FINDINGS: Intubation History: No history of difficult intubation Significant Anesthesia Considerations: none Airway History: No history of difficult airway I - PHYSICAL EVALUATION AIRWAY Patient intubated: No. Tracheostomy tube not present Mallampati: III. TM distance: >3 FB. Neck ROM: full ROM without neurological symptoms. Mouth opening: adequate. Short neck: no. Thick neck: yes Vigil present: yes Lip Bite Test: I Microretrognathia/Micro nagthia/Recessed Chin: No DENTAL Dental findings: teeth intact. Additional comments: +crowns/back. II - ANESTHESIA PLAN Anesthetic Plan: other Anesthetic plan additional comments: *PACC/TCI - anesthesia choice. Beta Gino Monitoring Plan Post Procedure Analgesic Plan Prepared for Surgery: optimally prepared for surgery. Labs-reviewed, okay to proceed-JL CONSULTS: Patient does not require consults for optimization at this time Planned Anesthetic: other anesthesia choice The Following Tests/Procedures Have Been Initiated: Orders Placed This Encounter >CBC + AUTO DIFF Standing Status: Future Number of Occurrences: 1 Standing Expiration Date: 06/21/2024 >CMP Standing Status: Future Number of Occurrences: 1 Standing Expiration Date: 06/21/2024 >HGB A1c (Today or soon) Standing Status: Future Number of Occurrences: 1 Standing Expiration Date: 06/21/2024 Type and Screen, 30 day Standing Status: Future Number of Occurrences: 1 Standing Expiration Date: 06/21/2024 Scheduling Instructions: A 30-day Type and Screen test has been ordered for you. This should be scheduled to be collected no earlier than 29 days before your scheduled procedure. If you receive blood products (red blood cells, platelets, plasma, cryoprecipitate) at any point before your procedure or are a female and become , please inform your provider. This test will be (more content not included)... Normal [facility] HbA1c (Bld)on 03-22-2024 Average glucose Estimated from glycated hemoglobin (Bld) [Mass/Vol] 151 mg/dL Normal [facility] Comment on above: Order Comment: Joanna yoo Type: BLOOD SPECIMENOrdering Facility: [facility] Address: [address] [place] [address] Result Comment: eAG: (Estimated average glucose) is a calculated value from HgbA1c and is ocean import representative of the average blood glucose level in the last 2-3 month period. Performed By: #### 5 5454-3 ####[facility] LABCLIA [id number] [place] [address] [place] HbA1c (Bld) [Mass fraction] 6.9 % High 4.3-5.6 [facility] Comment on above: Order Comment: Speci men Type: BLOOD SPECIMENOrdering Facility: [facility] Address: [address] [place] [address] Result Comment: Amer [place] Diabetes Association guidelines indicate that patients with HgbA1c in the range 5.7-6.4% are at increased risk for development of diabetes, and intervention by lifestyle modification may be beneficial. HgbA1c greater or equal to 6.5% is considered diagnostic of diabetes. Performed By: #### 5 5454-3 ####[facility] LABCLIA [id number] [place] [address] [place] Lipid 1996 panelon 5 Cholesterol [Mass/Vol] 138 mg/dL Normal <200 [facility] Comment on above: Order Comment: Joanna naila Type: BLOOD SPECIMENOrdering Facility: [facility] Address: [address] [place] [address] Result Comment: <200 mg/dL, Desirable 200-239 mg/dL, Borderline high >239 mg/dL, High Performed By: #### 2 4331-1 ####[facility] LABCLIA [id number] [id number] [place] [address] [place] Cholesterol in HDL [Mass/Vol] 36 mg/dL Low >39 [facility] Comment on above: Order Comment: Joanna yoo Type: BLOOD SPECIMENOrdering Facility: [facility] Address: [address] [place] [address] Result Comment: 40-5 9 mg/dL, Acceptable >59 mg/dL, High: Negative risk factor for coronary heart disease <40 mg/dL, Low: Positive risk factor for coronary heart disease Performed By: #### 2 4331-1 ####[facility] LABCLIA [id number] [address] [id number] [address] [place] Cholesterol in LDL [Mass/Vol] 86 mg/dL Normal <100 [facility] Comment on above: Order Comment: Joanna yoo Type: BLOOD SPECIMENOrdering Facility: [facility] Address: [address] [place] [address] Result Comment: <100 mg/dL, Optimal 100-129 mg/dL, Near optimal/above optimal 130-159 mg/dL, Borderline high 160-189 mg/dL, High >189 mg/dL, Very high Secondary prevention optimal LDL Cholesterol levels are recommended to be < 70 mg/dL Performed By: #### 2 4331-1 ####[facility] LABCLIA [id number] [id number] [place] [address] Cholesterol in LDL/Cholesterol in HDL [Mass ratio] 2.39 {ratio} Normal <2.54 [facility] Comment on above: Order Comment: Joanna yoo Type: BLOOD SPECIMENOrdering Facility: [facility] Address: [address] [place] [address] Result Comment: Nilesh escobar: 1. National Cholesterol Education Program ATP III Guideline At-A-Glance Quick Desk Reference: National Heart, Lung, and Blood [place]. National Institutes of Health. 2001: NIH Publication No. 01-3305. 2. An International Atherosclerosis Society position paper: global recommendations for the management of dyslipidemia: executive summary, Atherosclerosis. 2014: 232(2):410-413. Performed By: #### 2 4331-1 ####[facility] LABCLIA [id number] [address] [id number] [address] STATES [facility] Cholesterol in VLDL [Mass/Vol] 16 mg/dL Normal <30 [facility] Comment on above: Order Comment: Joanna naila Type: BLOOD SPECIMENOrdering Facility: [facility] Address: [address] [place] [address] Performed By: #### 2 4331-1 ####[facility] LABCLIA [id number] [place] [id number] [facility] [id number] [place] [address] [place] Cholesterol non HDL [Mass/Vol] 102 mg/dL Normal <130 [facility] Comment on above: Order Comment: Speci men Type: BLOOD SPECIMENOrdering Facility: [facility] Address: [address] [place] [address] Result Comment: <130 mg/dL, Optimal 130-159 mg/dL, Near optimal/above optimal 160-189 mg/dL, Borderline high 190-219 mg/dL, High >219 mg/dL, Very high Secondary prevention optimal non HDL Cholesterol levels are recommended to be <100 mg/dL Performed By: #### 2 4331-1 ####[facility] LABCLIA [id number] [address] [id number] [place] [address] [place] Cholesterol.total/Cho lesterol in HDL [Mass ratio] 3.83 {ratio} Normal <5.10 [facility] Comment on above: Order Comment: Speci men Type: BLOOD SPECIMENOrdering Facility: [facility] Address: [address] [place] [address] Performed By: #### 2 4331-1 ####[facility] LABCLIA [id number] [place] [id number] [facility] [id number] [place] [address] [place] FASTING TIME 18 hrs Normal [facility] Comment on above: Order Comment: Speci men Type: BLOOD SPECIMENOrdering Facility: [facility] Address: [address] [place] [address] Performed By: #### 2 4331-1 ####[facility] LABCLIA [id number] [address] [id number] [place] [address] [place] Triglyceride [Mass/Vol] 80 mg/dL Normal <150 [facility] Comment on above: Order Comment: Speci men Type: BLOOD SPECIMENOrdering Facility: [facility] Address: [address] [place] [address] Result Comment: <150 mg/dL, Normal 150-199 mg/dL, Borderline high 200-499 mg/dL, High >499 mg/dL, Very high Performed By: #### 2 4331-1 ####[facility] LABCLIA [id number] [id number] [place] [address] [place] Magnesium SerPl-mCncon 03-22 Magnesium [Mass/Vol] 1.7 mg/dL Normal 1.7-2.3 [facility] Comment on above: Order Comment: Speci men Type: BLOOD SPECIMENOrdering Facility: [facility] Address: [address] [place] [address] Performed By: #### 1 9123-9, 54533-4 ####[facility]ITALA [id number] [place] [address] [place] [facility] TYPE AND SCREEN,30 DAYon ABO O Normal [facility] Comment on above: Order Comment: Speci men Type: BLOOD SPECIMENOrdering Facility: [facility] Address: [address] [place] [address] Performed By: #### T SCR30 ####[facility] BLOOD BANKCLIA [id number] [place] [address] [place] Rh Nom (Bld) Positive Normal [facility] Comment on above: Order Comment: Speci men Type: BLOOD SPECIMENOrdering Facility: [facility] Address: [address] [place] [address] Performed By: #### T SCR30 ####[facility] BLOOD BANKCLIA [id number] [address] [id number] [address] [place] CNPNon 02-19-2024 CNPN Telephone (SLEWST) DESTINEY OCAMPO ([id number]) 1950 M Date Time Provider Department 02/19/24 GEOVANNA HOFFMAN During your visit today, we recorded the following information about you: Leigh Casillas, RN 02/19/2024 12:00 PM Signed phoned to ask Jabier Hoffman- how much and how often, should pt take B12 and folic acid? Reports she has B12 1000 mcg. Reports she has folic acid 800 mcg. Please advise and phone with reply. Dana Demarco LPN 02/20/2024 10:07 AM Signed Advised patient of MQ messages below, pt verbalized understanding. Geovanna Hoffman PA-C You58 minutes ago (9:05 AM) MQ Take 1000mcg once daily with folate for 6 months. Geovanna Hoffman PA-C You Geovanna Hoffman PA-C2 hours ago (7:36 AM) SB Patient is wanting to know how often would you recommend them taking this medication? Those are the dosage amounts they have but how should they take medication. Dana Demarco LPN February 20, 2024 7:36 AM Geovanna Hoffman PA-C You17 hours ago (4:17 PM) MQ This is correct. Complete this for a total of 6 months, we will then redraw again after 6 months. Geovanna Hoffman PA-C Allergies As of Date: 02/19/2024 Noted Allergy Reaction LISINOPRIL 08/25/2012 3 - Cough Date Reviewed: 02/02/2024 Reviewed by: Siomara Luong APRN.LEISURE TRAVEL AGENT - Fully Assessed Reason for Visit: Patient Question [4027] Prescriptions as of 02/20/2024 - cyanocobalamin, vitamin B-12, (VITAMIN B-12 ORAL) Take by mouth. - FOLIC ACID ORAL Take by mouth. - fluticasone propionate (FLONASE NASAL) Use in the nose. - meloxicam (MOBIC) 15 mg tablet Take 1 tablet by mouth once daily. - ketoconazole (NIZORAL) 2 % cream Apply 1 application to affected area two times a day. Continue for 1 week after rash resolves. - metFORMIN ER (GLUCOPHAGE XR) 500 mg 24 hr tablet Take 1 tablet by mouth daily with breakfast. - metoprolol succinate ER (TOPROL XL) 25 mg 24 hr tablet Take 1 tablet by mouth once daily. - omeprazole (PRILOSEC) 20 mg capsule Take 1 capsule by mouth two times a day. - traZODone (DESYREL) 50 mg tablet Take 0.5-1 tablets by mouth at bedtime as needed (sedation). - nystatin (MYCOSTATIN) powder Apply 1 application to affected area four times daily. Continue to use for a week after rash resolves. Use as needed for recurrences - ENTRESTO 49-51 mg tablet Take 1 tablet by mouth two times a day. (getting from patient assistance) - famotidine (PEPCID) 20 mg tablet Take 1 tablet by mouth at bedtime as needed. - Magnesium 250 mg tab Take 1 tablet by mouth two times a day. - Cholecalciferol, Vitamin D3, 50 mcg (2,000 unit) cap Take 1 capsule by mouth once daily. - atorvastatin (LIPITOR) 40 mg tablet TAKE 1 TABLET BY MOUTH EVERY DAY FOR 90 DAYS - aspirin 81 mg chewable tablet Take 81 mg by mouth. - COMPOUNDED PRESCRIPTION Generic Glucometer - I each 50 strips and lancets. Re: Diabetes mellitus controlled with hypoglycemia. - Lancets lancets Test blood sugar(s) 1-2 times daily or as directed. Dx: Type 2 DM - Controlled E11.9 Insulin: No - blood sugar diagnostic (BLOOD GLUCOSE TEST) test strip Test blood sugar(s) 1-2 times daily or as directed. Dx: Type 2 DM - Controlled E11.9 Insulin: No - Blood-Glucose Meter monitoring kit Glucose Meter of Choice (per insurance coverage)- Kit - Dx: Type 2 DM - Controlled E11.9, Test 1-2 times a day or as directed. No insulin - DOCUSATE CALCIUM (STOOL SOFTENER ORAL) Take by mouth as needed. Problem List As Of Date 02/19/2024 Noted Resolved PURE HYPERCHOLESTEROLEM [E78.00] DIVERTICULOSIS OF COLON W/O BLEED [K57.30] Dysthymic disorder [F34.1] 01/03/2021 PAIN HIP JOINT [M25.559] 01/17/2006 DEPRESSION RECURRENT( Moderate) [F33.1] 01/17/2006 05/22/2023 SOMNOLENCE [R40.4] 01/17/2006 01/03/2021 Headache(784.0) [R51] 01/17/2006 11/21/2014 Abdominal pain, other specified site [R10.9] 12/17/2006 11/21/2014 Diaphragmatic hernia [K44.9] 04/24/2007 GASTRITIS ANTRAL( W/O Hemorrhage) [K29.60] 04/24/2007 11/21/2014 ESOPHAGITIS REFLUX [K21.00] 04/24/2007 HEMORRHOIDS INTERNAL [K64.8] 04/24/2007 11/21/2014 ACUTE GASTRITIS W/O HEMORRHAGE [K29.00] 04/24/2007 BENIGN NEOPLASM LG BOWEL [D12.6] 04/24/2007 Hypertension [I10] 07/24/2011 Trigger middle finger of right hand [M65.331] 08/29/2011 01/03/2021 Trigger index finger of right hand [M65.321] 08/29/2011 07/16/2016 Diabetes mellitus type 2, controlled, without c*08/15/2014 Neck pain [M54.2] 08/16/2014 Cervical radiculopathy [M54.12] 08/16/2014 Midline thoracic back pain [M54.6] 09/01/2014 Neck pain on left side [M54.2] 09/01/2014 01/03/2021 Numbness and tingling of right upper extremity *09/01/2014 Numbness and tingling in left upper extremity [*09/01/2014 Cervical spondylosis without myelopathy [M47.81*09/01/2014 Benign non-nodular prostatic hyperplasia with l*11/21/2014 02/02/2024 Shoulder arth (more content not included)... Normal [facility] CNPNon 02-02-2024 CNPN Telephone (ORMDNA) DESTINEY OCAMPO ([id number]) 1950 M Date Time Provider Department 02/02/24 NAKUL MADDOX During your visit today, we recorded the following information about you: Katie Carolina RN 02/02/2024 9:46 AM Signed Pt A1C resulted high. Patient informed via phone all. Explained that it increases risk for complications post op and it is a significant change that the last 3 A1Cs he has had drawn. Suggested reschedule surgery and see PCP. Patient verbalized understanding. Surgery will be rescheduled to 04/08/24 pending results of A1C preop. Allergies As of Date: 02/02/2024 Noted Allergy Reaction LISINOPRIL 08/25/2012 3 - Cough Date Reviewed: 01/30/2024 Reviewed by: Siomara Luong, MARCIN.LEISURE TRAVEL AGENT - Fully Assessed Prescriptions as of 02/02/2024 - cyanocobalamin, vitamin B-12, (VITAMIN B-12 ORAL) Take by mouth. - FOLIC ACID ORAL Take by mouth. - fluticasone propionate (FLONASE NASAL) Use in the nose. - mupirocin (BACTROBAN) 2 % ointment Apply 0.5 inch with cotton swab (Q-tip) to each nostril in the morning and evening for 5 days prior to and including day of surgery. - meloxicam (MOBIC) 15 mg tablet Take 1 tablet by mouth once daily. - ketoconazole (NIZORAL) 2 % cream Apply 1 application to affected area two times a day. Continue for 1 week after rash resolves. - metFORMIN ER (GLUCOPHAGE XR) 500 mg 24 hr tablet Take 1 tablet by mouth daily with breakfast. - metoprolol succinate ER (TOPROL XL) 25 mg 24 hr tablet Take 1 tablet by mouth once daily. - omeprazole (PRILOSEC) 20 mg capsule Take 1 capsule by mouth two times a day. - traZODone (DESYREL) 50 mg tablet Take 0.5-1 tablets by mouth at bedtime as needed (sedation). - nystatin (MYCOSTATIN) powder Apply 1 application to affected area four times daily. Continue to use for a week after rash resolves. Use as needed for recurrences - ENTRESTO 49-51 mg tablet Take 1 tablet by mouth two times a day. (getting from patient assistance) - famotidine (PEPCID) 20 mg tablet Take 1 tablet by mouth at bedtime as needed. - Magnesium 250 mg tab Take 1 tablet by mouth two times a day. - Cholecalciferol, Vitamin D3, 50 mcg (2,000 unit) cap Take 1 capsule by mouth once daily. - atorvastatin (LIPITOR) 40 mg tablet TAKE 1 TABLET BY MOUTH EVERY DAY FOR 90 DAYS - aspirin 81 mg chewable tablet Take 81 mg by mouth. - COMPOUNDED PRESCRIPTION Generic Glucometer - I each 50 strips and lancets. Re: Diabetes mellitus controlled with hypoglycemia. - Lancets lancets Test blood sugar(s) 1-2 times daily or as directed. Dx: Type 2 DM - Controlled E11.9 Insulin: No - blood sugar diagnostic (BLOOD GLUCOSE TEST) test strip Test blood sugar(s) 1-2 times daily or as directed. Dx: Type 2 DM - Controlled E11.9 Insulin: No - Blood-Glucose Meter monitoring kit Glucose Meter of Choice (per insurance coverage)- Kit - Dx: Type 2 DM - Controlled E11.9, Test 1-2 times a day or as directed. No insulin - DOCUSATE CALCIUM (STOOL SOFTENER ORAL) Take by mouth as needed. Problem List As Of Date 02/02/2024 Noted Resolved PURE HYPERCHOLESTEROLEM [E78.00] DIVERTICULOSIS OF COLON W/O BLEED [K57.30] Dysthymic disorder [F34.1] 01/03/2021 PAIN HIP JOINT [M25.559] 01/17/2006 DEPRESSION RECURRENT( Moderate) [F33.1] 01/17/2006 05/22/2023 SOMNOLENCE [R40.4] 01/17/2006 01/03/2021 Headache(784.0) [R51] 01/17/2006 11/21/2014 Abdominal pain, other specified site [R10.9] 12/17/2006 11/21/2014 HIATAL HERNIA [K44.9] 04/24/2007 GASTRITIS ANTRAL( W/O Hemorrhage) [K29.60] 04/24/2007 11/21/2014 ESOPHAGITIS REFLUX [K21.00] 04/24/2007 HEMORRHOIDS INTERNAL [K64.8] 04/24/2007 11/21/2014 ACUTE GASTRITIS W/O HEMORRHAGE [K29.00] 04/24/2007 BENIGN NEOPLASM LG BOWEL [D12.6] 04/24/2007 Hypertension [I10] 07/24/2011 Trigger middle finger of right hand [M65.331] 08/29/2011 01/03/2021 Trigger index finger of right hand [M65.321] 08/29/2011 07/16/2016 Diabetes mellitus type 2, controlled, without c*08/15/2014 Neck pain [M54.2] 08/16/2014 Cervical radiculopathy [M54.12] 08/16/2014 Midline thoracic back pain [M54.6] 09/01/2014 Neck pain on left side [M54.2] 09/01/2014 01/03/2021 Numbness and tingling of right upper extremity *09/01/2014 Numbness and tingling in left upper extremity [*09/01/2014 Cervical spondylosis without myelopathy [M47.81*09/01/2014 Benign non-nodular prostatic hyperplasia with l*11/21/2014 Shoulder arthritis [M19.019] 10/05/2015 Prostate cancer (HCC) [C61] 01/16/2017 Pulmonary nodule/lesion, solitary [R91.1] 01/16/2017 RAJI (obstructive sleep apnea) AHI 39 [G47.33] 06/15/2017 Malaise and fatigue [R53.81, R53.83] 06/18/2017 01/03/2021 Complaints of memory disturbance [R41.3] 06/18/2017 H/O concussion [Z87.820] 06/18/2017 08/26/2019 Abnormal x-ray [R93.89] 11/20/2021 Chronic fatigue [R53.82] 05/22/2023 Headaches [R51.9] 05/21 (more content not included)... [facility] DEST[facility] ([id number]) 1950 M Date Time Provider Department 02/02/24 KEREN ARCE INTMWS During your visit today, we recorded the following information about you: Leigh Casillas, RN 02/02/2024 10:44 AM Signed Patient reports he was scheduled for hip replacement with [facility] on 02-18-23, but his A1C is too high at 8.2, and surgeon moved surgery to 04-08-24, and advised patient to report the A1c to pcp. Asking pcp to advise. States he has been eating holiday foods, but can cut back and re-check labs. Keren Arce MD 02/02/2024 7:59 PM Signed Verify if he is checking sugars routinely to make sure keeps fasting sugars under 150 and nonfasting sugars (at least 90 minutes after a meal) under 180. If having trouble keeping sugars down, can work with pharmD to make sure gets HgA1C to goal--verify what his orthopedist wants his HgA1C to be under. In the meanwhile, diet should be mostly protein and veggies, limit processed carbs and starchy foods, plus stay as active as able and drink enough water to control sugars better. Follow up with me if needed--noted HgA1C jumped up from 6 range to 8 range. Hemoglobin A1C (%) Date Value 01/30/2024 8.2 10/07/2023 6.8 04/07/2023 6.7 09/26/2022 6.5 03/26/2022 7.2 10/11/2020 7.5 02/11/2018 6.2 09/04/2017 6.2 05/09/2017 6.9 01/07/2017 6.0 Hemoglobin A1C (POCT) (%) Date Value 06/26/2020 7.0 02/24/2019 7.1 11/19/2018 7.4 Leena Wright RN 02/03/2024 8:33 AM Signed Pt called and is notified of providers results and instructions. Pt voices understanding. Pt states he was told his A1C has to be under [address] Nakul Maddox is doing the surgery. They have it rescheduled for April 08. Pt reports his fasting BS has been running around 180 when it used to run around 150. Pt states provider decreased his Metformin ER 500 mg from take 1 tablet BID with meals to take 1 tablet daily with breakfast. He didn't know if provider would want to increase medication back up. Please call and advise. CHRISTOPH Barrett Liza D, MD 02/03/2024 3:40 PM Signed Why did he decrease the dose of metformin? If because of side effects (like diarrhea), we can try adding another med to control sugars to avoid adverse effects. If no adverse effects, then increase back to BID. If sugars not improving with 1 twice daily, can increase to 3 per day then 4 per day as needed. (2-1 or 1-2, then 2-2 for dosing twice daily). Desiree Orlando LPN 02/03/2024 4:04 PM Signed Blood sugar were dropping low and was having episodes of weak and shakiness. He discussed it with office and it was agreed to try just one a day. He mentioned that he has no problem going back to two a day or switching medications all together. Keren Arce MD 02/05/2024 5:44 PM Signed May resume 2 pills per day since sugars went up. Metformin does not usually cause low sugars but if has lows again, can go back to 1 pill daily and let me know. Will send new RX for twice daily if tolerates well--let me know if wants RX sent now Leigh Casillas RN 02/06/2024 8:20 AM Signed Phoned patient and given provider's message below with verbalized understanding. Pt agreeable. Allergies As of Date: 02/02/2024 Noted Allergy Reaction LISINOPRIL 08/25/2012 3 - Cough Date Reviewed: 02/02/2024 Reviewed by: Siomara Luong APRN.LEISURE TRAVEL AGENT - Fully Assessed Reason for Visit: Patient Question [1537] Visit Diagnosis:Controlled type 2 diabetes mellitus with hypoglycemia, without long-term current use of insulin (HCC) [E11.649] Prescriptions as of 02/06/2024 - cyanocobalamin, vitamin B-12, (VITAMIN B-12 ORAL) Take by mouth. - FOLIC ACID ORAL Take by mouth. - fluticasone propionate (FLONASE NASAL) Use in the nose. - mupirocin (BACTROBAN) 2 % ointment Apply 0.5 inch with cotton swab (Q-tip) to each nostril in the morning and evening for 5 days prior to and including day of surgery. - meloxicam (MOBIC) 15 mg tablet Take 1 tablet by mouth once daily. - ketoconazole (NIZORAL) 2 % cream Apply 1 application to affected area two times a day. Continue for 1 week after rash resolves. - metFORMIN ER (GLUCOPHAGE XR) 500 mg 24 hr tablet Take 1 tablet by mouth daily with breakfast. - metoprolol succinate ER (TOPROL XL) 25 mg 24 hr tablet Take 1 tablet by mouth once daily. - omeprazole (PRILOSEC) 20 mg capsule Take 1 capsule by mouth two times a day. - traZODone (DESYREL) 50 mg tablet Take 0.5-1 tablets by mouth at bedtime as needed (sedation). - nystatin (MYCOSTATIN) powder Apply 1 application to affected area four times daily. Continue to use for a week after rash resolves. Use as needed for recurrences - ENTRESTO 49-51 mg tablet Take 1 tablet by mouth two times a day. (getting from patient assistance) - famotidine (PEPCID) 20 mg tablet Take 1 tablet by mouth at b (more content not included)... Normal [facility] CBC W Auto Differential pane l (Bld)on 01-30-2024 Basophils (Bld) [#/Vol] 0.07 10*3/uL Normal <0.11 [facility] Comment on above: Order Comment: Speci men Type: BLOOD SPECIMENOrdering Facility: [facility] Address: [address] [place] [address] Performed By: #### 5 7021-8 ####[facility] MILLWNCLIA [id number] [place] [address] [place] Basophils/100 WBC (Bld) 0.9 % Normal [facility] Comment on above: Order Comment: Speci men Type: BLOOD SPECIMENOrdering Facility: [facility] Address: [address] [place] [address] Performed By: #### 5 7021-8 ####[facility] [id number] [place] [address] [place] Differential cell count method Nom (Bld) Auto Normal [facility] Comment on above: Order Comment: Speci men Type: BLOOD SPECIMENOrdering Facility: [facility] Address: [address] [place] [address] Performed By: #### 5 7021-8 ####[facility] PORT ORANGEWLINDALIA [id number] [place] [address] [place] Eosinophils (Bld) [#/Vol] 0.38 10*3/uL Normal <0.46 [facility] Comment on above: Order Comment: Speci men Type: BLOOD SPECIMENOrdering Facility: [facility] Address: [address] [place] [address] Performed By: #### 5 7021-8 ####[facility] ORANGEWNCLIA [id number] [place] [address] [place] Eosinophils/100 WBC (Bld) 4.8 % Normal [facility] Comment on above: Order Comment: Speci men Type: BLOOD SPECIMENOrdering Facility: [facility] Address: [address] [place] [address] Performed By: #### 5 7021-8 ####[facility]ITALNCL[facility] [id number] [place] [address] [place] Erythrocyte distribution width (RBC) [Ratio] 12.8 % Normal 11.5-15.0 [facility] Comment on above: Order Comment: Speci men Type: BLOOD SPECIMENOrdering Facility: [facility] Address: [address] [place] [address] Performed By: #### 5 7021-8 ####[facility] [id number] [place] [address] [place] Hematocrit (Bld) [Volume fraction] 46.3 % Normal 39.0-51.0 [facility] Comment on above: Order Comment: Speci men Type: BLOOD SPECIMENOrdering Facility: [facility] Address: [address] [place] [address] Performed By: #### 5 7021-8 ####[facility] [id number] [place] [address] [place] Hemoglobin (Bld) [Mass/Vol] 15.0 g/dL Normal 13.0-17.0 [facility] Comment on above: Order Comment: Speci men Type: BLOOD SPECIMENOrdering Facility: [facility] Address: [address] [place] [address] Performed By: #### 5 7021-8 ####[facility]PITALNCLIA [id number] [place] [address] [place] Immature granulocytes (Bld) [#/Vol] 0.03 10*3/uL Normal <0.10 [facility] Comment on above: Order Comment: Speci men Type: BLOOD SPECIMENOrdering Facility: [facility] Address: [address] [place] [address] Performed By: #### 5 7021-8 ####[facility] HOSPITALNCLI [id number] [place] [address] [place] Immature granulocytes/100 WBC (Bld) 0.4 % Normal [facility] Comment on above: Order Comment: Speci men Type: BLOOD SPECIMENOrdering Facility: [facility] Address: [address] [place] [address] Performed By: #### 5 7021-8 ####[facility] LIVIERVICKEYLIA [id number] [place] [address] [place] Lymphocytes (Bld) [#/Vol] 2.86 10*3/uL Normal 1.00-4.00 [facility] Comment on above: Order Comment: Speci men Type: BLOOD SPECIMENOrdering Facility: [facility] Address: [address] [place] [address] Performed By: #### 5 7021-8 ####[facility] HOSPITALLINDAA [id number] [place] [address] [place] Lymphocytes/100 WBC (Bld) 36.2 % Normal [facility] Comment on above: Order Comment: Speci men Type: BLOOD SPECIMENOrdering Facility: [facility] Address: [address] [place] [address] Performed By: #### 5 7021-8 ####[facility]PITALANABELA [id number] [place] [address] [place] MCH (RBC) [Entitic mass] 27.5 pg Normal 26.0-34.0 [facility] Comment on above: Order Comment: Speci men Type: BLOOD SPECIMENOrdering Facility: [facility] Address: [address] [place] [address] Performed By: #### 5 7021-8 ####[facility]PITALNCLIA [id number] [place] [address] [place] MCHC (RBC) [Mass/Vol] 32.4 g/dL Normal 30.5-36.0 [facility] Comment on above: Order Comment: Speci men Type: BLOOD SPECIMENOrdering Facility: [facility] Address: [address] [place] [address] Performed By: #### 5 7021-8 ####[facility] ORANGEWNCLIA [id number] [place] [address] [place] MCV (RBC) [Entitic vol] 85.0 fL Normal 80.0-100.0 [facility] Comment on above: Order Comment: Speci men Type: BLOOD SPECIMENOrdering Facility: [facility] Address: [address] [place] [address] Performed By: #### 5 7021-8 ####[facility] [id number] [place] [address] [place] Monocytes (Bld) [#/Vol] 0.48 10*3/uL Normal <0.87 [facility] Comment on above: Order Comment: Speci men Type: BLOOD SPECIMENOrdering Facility: [facility] Address: [address] [place] [address] Performed By: #### 5 7021-8 ####[facility] [id number] [place] [address] [place] Monocytes/100 WBC (Bld) 6.1 % Normal [facility] Comment on above: Order Comment: Speci men Type: BLOOD SPECIMENOrdering Facility: [facility] Address: [address] [place] [address] Performed By: #### 5 7021-8 ####[facility] [id number] [place] [address] [place] Neutrophils (Bld) [#/Vol] 4.08 10*3/uL Normal 1.45-7.50 [facility] Comment on above: Order Comment: Speci men Type: BLOOD SPECIMENOrdering Facility: [facility] Address: [address] [place] [address] Performed By: #### 5 7021-8 ####[facility]OSPITALNCLIA [id number] [place] [address] [place] Neutrophils/100 WBC (Bld) 51.6 % Normal [facility] Comment on above: Order Comment: Speci men Type: BLOOD SPECIMENOrdering Facility: [facility] Address: [address] [place] [address] Performed By: #### 5 7021-8 ####[facility] [id number] [place] [address] [place] Nucleated RBC (Bld) [#/Vol] 10*3/uL Normal <0.01 [facility] Comment on above: Order Comment: Speci men Type: BLOOD SPECIMENOrdering Facility: [facility] Address: [address] [place] [address] Performed By: #### 5 7021-8 ####[facility] [id number] [place] [address] [place] Nucleated RBC/100 WBC (Bld) [Ratio] 0.0 /100 WBC Normal [facility] Comment on above: Order Comment: Speci men Type: BLOOD SPECIMENOrdering Facility: [facility] Address: [address] [place] [address] Performed By: #### 5 7021-8 ####[facility] [id number] [place] [address] [place] Platelet mean volume (Bld) [Entitic vol] 11.9 fL Normal 9.0-12.7 [facility] Comment on above: Order Comment: Speci men Type: BLOOD SPECIMENOrdering Facility: [facility] Address: [address] [place] [address] Performed By: #### 5 7021-8 ####[facility] [id number] [place] [address] [place] Platelets (Bld) [#/Vol] 146 10*3/uL Low 150-400 [facility] Comment on above: Order Comment: Speci men Type: BLOOD SPECIMENOrdering Facility: [facility] Address: [address] [place] [address] Performed By: #### 5 7021-8 ####[facility]PITALNCLIA [id number] [place] [address] [place] RBC (Bld) [#/Vol] 5.45 10*6/uL Normal 4.20-6.00 [facility] Comment on above: Order Comment: Speci men Type: BLOOD SPECIMENOrdering Facility: [facility] Address: [address] [place] [address] Performed By: #### 5 7021-8 ####[facility]PITALNCL[facility] [id number] [place] [address] [place] WBC (Bld) [#/Vol] 7.90 10*3/uL Normal 3.70-11.00 [facility] Comment on above: Order Comment: Speci men Type: BLOOD SPECIMENOrdering Facility: [facility] Address: [address] [place] [address] Performed By: #### 5 7021-8 ####[facility]PITALNCL[facility] [id number] [place] [address] [place] Comprehensive metabolic 2000 panelon 01-30-2024 Albumin [Mass/Vol] 4.5 g/dL Normal 3.9-4.9 [facility] Comment on above: Order Comment: Speci men Type: BLOOD SPECIMENOrdering Facility: [facility] Address: [address] [place] [address] Performed By: #### 2 4323-8 ####[facility]PITALNCLIA [id number] [place] [address] [place] ALP [Catalytic activity/Vol] 91 U/L Normal 38-113 [facility] Comment on above: Order Comment: Speci men Type: BLOOD SPECIMENOrdering Facility: [facility] Address: [address] [place] [place] [id number] Performed By: #### 2 4323-8 ####[facility] AYSHA MILLTOWNCLIA [id number] [place] [address] [place] ALT [Catalytic activity/Vol] 16 U/L Normal 10-54 [facility] Comment on above: Order Comment: Speci men Type: BLOOD SPECIMENOrdering Facility: [facility] Address: [address] [place] [address] Performed By: #### 2 4323-8 ####[facility] MILLWNCLIA [id number] [place] [address] [place] Anion gap [Moles/Vol] 9 mmol/L Normal 8-15 [facility] Comment on above: Order Comment: Speci men Type: BLOOD SPECIMENOrdering Facility: [facility] Address: [address] [place] [address] Performed By: #### 2 4323-8 ####[facility]PITALNCL[facility] [id number] [place] [address] [place] AST [Catalytic activity/Vol] 19 U/L Normal 14-40 [facility] Comment on above: Order Comment: Speci men Type: BLOOD SPECIMENOrdering Facility: [facility] Address: [address] [place] [address] Performed By: #### 2 4323-8 ####[facility] ORANGEWNCLIA [id number] [place] [address] [place] Bilirubin [Mass/Vol] 1.3 mg/dL Normal 0.2-1.3 [facility] Comment on above: Order Comment: Speci men Type: BLOOD SPECIMENOrdering Facility: [facility] Address: [address] [place], [place] [address] Performed By: #### 2 4323-8 ####[facility] ORANGEWNCLIA [id number] [place] [address] [place] Calcium [Mass/Vol] 9.7 mg/dL Normal 8.5-10.2 [facility] Comment on above: Order Comment: Speci men Type: BLOOD SPECIMENOrdering Facility: [facility] Address: [address] [place] [address] Performed By: #### 2 4323-8 ####[facility] MILLTOWNCLIA [id number] [place] [address] [place] Chloride [Moles/Vol] 102 mmol/L Normal 98-107 [facility] Comment on above: Order Comment: Speci men Type: BLOOD SPECIMENOrdering Facility: [facility] Address: [address] [place] [address] Performed By: #### 2 4323-8 ####[facility]ITALNCL[facility] [id number] [place] [address] [place] CO2 [Moles/Vol] 28 mmol/L Normal 22-30 [facility] Comment on above: Order Comment: Speci men Type: BLOOD SPECIMENOrdering Facility: [facility] Address: [address] [place] [address] Performed By: #### 2 4323-8 ####[facility] [id number] [place] [address] [place] Creatinine [Mass/Vol] 0.77 mg/dL Normal 0.73-1.22 [facility] Comment on above: Order Comment: Speci men Type: BLOOD SPECIMENOrdering Facility: [facility] Address: [address] [place] [address] Performed By: #### 2 4323-8 ####[facility]PITALNCLIA [id number] [place], [place] [address] [place] Creatinine and Glomerular filtration rate.predicted panel (S/P/Bld) 95 mL/min/1.73m??? Normal >=60 [facility] Comment on above: Order Comment: Joanna yoo Type: BLOOD SPECIMENOrdering Facility: [facility] Address: [address] [place] [address] Result Comment: Kemi mated Glomerular Filtration Rate (eGFR) is calculated using the 2020 CKD-EPI creatinine equation. This equation utilizes serum creatinine, sex, and age as parameters. The creatinine assay has traceable calibration to isotope dilution-mass spectrometry. Refer to KDIGO guidelines for clinical interpretation. In patients with unstable renal function, e.g. those with acute kidney injury, the eGFR may not accurately reflect actual GFR. Performed By: #### 2 4323-8 ####[facility] [id number] [place] [address] [place] Glucose [Mass/Vol] 135 mg/dL High 74-99 [facility] Comment on above: Order Comment: Joanna yoo Type: BLOOD SPECIMENOrdering Facility: [facility] Address: [address] [place] [address] Result Comment: The [place] Diabetes Association (ADA) provides guidance for cutoff values for fasting glucose and random glucose. The ADA defines fasting as no caloric intake for at least 8 hours. Fasting plasma glucose results between 100 to 125 mg/dL indicate increased risk for diabetes (prediabetes). Fasting plasma glucose results greater than or equal to 126 mg/dL meet the criteria for diagnosis of diabetes. In the absence of unequivocal hyperglycemia, results should be confirmed by repeat testing. In a patient with classic symptoms of hyperglycemia or hyperglycemic crisis, random plasma glucose results greater than or equal to 200 mg/dL meet the criteria for diagnosis of diabetes. Reference: Standards of Medical Care in Diabetes 2016, [place] Diabetes Association. Diabetes Care. 2016.39(Suppl 1). Performed By: #### 2 4323-8 ####[facility] [id number] [place] [address] [place] Potassium [Moles/Vol] 4.7 mmol/L Normal 3.7-5.1 [facility] Comment on above: Order Comment: Joanna yoo Type: BLOOD SPECIMENOrdering Facility: [facility] Address: [address] [place] [address] Performed By: #### 2 4323-8 ####[facility] MILLTOWNCLIA [id number] [place] [address] [place] Protein [Mass/Vol] 7.1 g/dL Normal 6.3-8.0 [facility] Comment on above: Order Comment: Speci men Type: BLOOD SPECIMENOrdering Facility: [facility] Address: [address] [place] [address] Performed By: #### 2 4323-8 ####[facility] MILLWNCLIA [id number] [place] [address] [place] Sodium [Moles/Vol] 139 mmol/L Normal 136-144 [facility] Comment on above: Order Comment: Speci men Type: BLOOD SPECIMENOrdering Facility: [facility] Address: [address] [place] [address] Performed By: #### 2 4323-8 ####[facility] MILLWNCLIA [id number] [place] [address] [place] Urea nitrogen [Mass/Vol] 13 mg/dL Normal 9-24 [facility] Comment on above: Order Comment: Speci men Type: BLOOD SPECIMENOrdering Facility: [facility] Address: [address] [place] [address] Performed By: #### 2 4323-8 ####[facility]ANGEWNCL[facility] [id number] [place] [address] [place] [id number] 01-30-2024 ECG01 Ventricular Rate : 6 2 BPM Atrial Rate : 62 BPM P-R Interval : 148 ms QRS Duration : 98 ms Q-T Interval : 418 ms QTC Calculation(Bazett) : 424 ms Calculated P Seymour : 44 degrees Calculated R Seymour : -6 degrees Calculated T Seymour : 43 degrees NORMAL SINUS RHYTHM INCOMPLETE RIGHT BUNDLE BRANCH BLOCK BORDERLINE ECG Confirmed by MD RODRIGUEZ GREGORY () on 02/02/2024 10:07:28 AM NAME : DESTINEY OCAMPO PID : [id number] : 1950 Gender : Male Race : ORD : Procedure Date : Jan 30 2024 11:56:48 Edit Date : Feb 02 2024 10:07:29 Diagnosis: NORMAL SINUS RHYTHM INCOMPLETE RIGHT BUNDLE BRANCH BLOCK BORDERLINE ECG Confirmed by MD RODRIGUEZ GREGORY () on 02/02/2024 10:07:28 AM Test Reason : Location : 636 : [facility] Overread By : MD RODRIGUEZ GREGORY Edited By : MD RODRIGUEZ GREGORY Referred By : NAKUL MADDOX Acquired by : Jm angel [facility] HISTORY PHYSICALon HISTORY PHYSICAL HNO ID: [id number] Author: SIOMARA LUONG APRN.CNP Service: ? Author Type: Nurse Practitioner Type: H&P Filed: 02/02/2024 13:44 Note Text: [facility] HISTORY AND PHYSICAL EXAMINATION SERVICE DATE: 01/30/2024 SERVICE TIME: 1:41 PM PRIMARY CARE PHYSICIAN: Keren Arce MD Assessment Patient has the following medical conditions which may affect michelle-operative course: Hypertension Assessment: controlled on rx Last 14 BP Last 14 Encounter BP Readings: Date: BP: 01/30/2024 118/74 01/27/2024 105/78 12/24/2023 111/69 10/15/2023 106/68 03/30/2023 135/85 10/02/2022 110/72 07/26/2022 130/76 06/04/2022 91/73 05/09/2022 130/88 04/01/2022 110/72 11/20/2021 100/54 08/10/2021 118/72 01/01/2021 148/74 08/23/2020 122/78 PURE HYPERCHOLESTEROLEM Assessment: c/w statin Cardiomyopathy (HCC) Assessment: controlled on rx, improved EF 45-% to 55% (echo 2021 per warehouse attendant note) after Entrest[facility]. Following [facility], last OV scanned into [facility] Coronary artery 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 angina pectoris Assessment: mild to moderate 2021 heart cath, c/w daily ASA, statin and BB. Denies CP, palpitations, sob, new or worsening cardiac symptoms RAJI (obstructive sleep apnea) AHI 39 Assessment: non-compliant with CPAP ESOPHAGITIS REFLUX Assessment: controlled on rx Prostate cancer (HCC) Assessment: s/p prostatectomy, denies radiation Diabetes mellitus type 2, controlled, without complications ([facility]) Assessment: controlled with oral agent Hemoglobin A1C (%) Date Value 01/30/2024 8.2 10/11/2020 7.5 Pulmonary nodule/lesion, solitary Assessment: surveillance, last CT chest 2021 showing calcified granuloma Diaphragmatic hernia Assessment: no hx surgical interventions Rizzo Activity Status Index: METS: Climb a flight of stairs or walk up a hill (5.50 METs) DASI Score: 5.5 Patient denies any chest pain or undue shortness of breath with the above physical activity. Clinical Frailty Scale: 3. Well, with treated comorbid disease STOP-Bang Score: Has or is being treated for high blood pressure Patient over 50 years old Has a large neck Male patient Denies snoring loudly Denies feeling tired, fatigued, or sleepy during the daytime Has not been observed to stop breathing or choking/gasping during sleep BMI less than or equal to 35 kg/m2 STOP-Bang Score: 4 [id number] Score: Age: 65-74 Sex: male CHF history: No Hypertension history: Yes Stroke/TIA/thromboembol ism history: No Vascular disease history: No Diabetes history: Yes [id number] Score: 3 ARISCAT Score: Age: 51-80 Preoperative SpO2: >=96% Respiratory infection in the last month: No Preoperative anemia: No Surgical incision: peripheral Duration of surgery: 2-3 hrs Emergency procedure: No ARISCAT Score: 19 ANESTHESIA FINDINGS: Intubation History: No history of difficult intubation Significant Anesthesia Considerations: none Airway History: No history of difficult airway I - PHYSICAL EVALUATION AIRWAY Patient intubated: No. Tracheostomy tube not present Mallampati: III. TM distance: >3 FB. Neck ROM: full ROM without neurological symptoms. Mouth opening: adequate. Short neck: no. Thick neck: yes Vigil present: yes Lip Bite Test: I Microretrognathia/Micro nagthia/Recessed Chin: No DENTAL Dental findings: teeth intact. Additional comments: +crowns/back. II - ANESTHESIA PLAN Anesthetic Plan: other Beta Gino Monitoring Plan Post Procedure Analgesic Plan Prepared for Surgery: NOT optimally prepared for surgery. Labs and EKG-reviewed, okay to proceed-JL, surgery cancelled 2/2 elevated A1c rescheduled 04/08/2024 CONSULTS: Patient does not require consults for optimization at this time Planned Anesthetic: other anesthesia choice The Following Tests/Procedures Have Been Initiated: Orders Placed This Encounter cyanocobalamin, vitamin B-12, (VITAMIN B-12 ORAL) Sig: Take by mouth. FOLIC ACID ORAL Sig: Take by mouth. fluticasone propionate (FLONASE NASAL) Sig: Use in the nose. mupirocin (BACTROBAN) 2 % ointment Sig: Apply 0.5 inch with cotton swab (Q-tip) to each nostril in the morning and evening for 5 days prior to and including day of surgery. Dispense: 22 g Refill: 0 REASON FOR VISIT: Destiney Ocampo is a 74 year old male who is scheduled for Procedure(s): ARTHROPLASTY ACETABULAR AND PROX FEM PROSTH TOTAL HIP ANTERIOR APPROACH (Right) at the request of Dr. Nakul Maddox for consultation. My final recommendation will be communicated back to the requesting physician by way of shared medical record or letter. Subjective The patient has the following: COVID-19 Immunization Status Overdue - Covid-19 Vaccine ( season) Overdue since 10/19/2023 01/07/2023 Imm Admin: COVID-19 vaccine, age 12+ yr, 2022 (more content not included)... Normal [facility] HbA1c (Bld)on 01-30-2024 Average glucose Estimated from glycated hemoglobin (Bld) [Mass/Vol] 189 mg/dL Normal [facility] Comment on above: Order Comment: Speci men Type: BLOOD SPECIMENOrdering Facility: [facility] Address: [address] [place] [address] Result Comment: eAG: (Estimated average glucose) is a calculated value from HgbA1c and is ocean import representative of the average blood glucose level in the last 2-3 month period. Performed By: #### 5 5454-3 ####[facility] LABCLIA [id number] [facility] [id number] [address] [place] HbA1c (Bld) [Mass fraction] 8.2 % High 4.3-5.6 [facility] Comment on above: Order Comment: Speci men Type: BLOOD SPECIMENOrdering Facility: [facility] Address: [address] [place] [address] Result Comment: [place] Diabetes Association guidelines indicate that patients with HgbA1c in the range 5.7-6.4% are at increased risk for development of diabetes, and intervention by lifestyle modification may be beneficial. HgbA1c greater or equal to 6.5% is considered diagnostic of diabetes. Performed By: #### 5 5454-3 ####[facility] LABCLIA [id number] [place] [address] [place] TYPE AND SCREEN,30 DAYon ABO O Normal [facility] Comment on above: Order Comment: Speci men Type: BLOOD SPECIMENOrdering Facility: [facility] Address: [address] [place] [address] Performed By: #### T SCR30 ####[facility] BLOOD BANKCLIA [id number] [place] [address] [place] Rh Nom (Bld) Positive Normal [facility] Comment on above: Order Comment: Speci men Type: BLOOD SPECIMENOrdering Facility: [facility] Address: [address] [place] [address] Performed By: #### T SCR30 ####[facility] BLOOD BANKCLIA [id number] [place] [address] [place] Vit B12 SerPl-mCncon 024 Cobalamin (Vitamin B12) [Mass/Vol] pg/mL High 232-1245 [facility] Comment on above: Order Comment: Speci men Type: BLOOD SPECIMENOrdering Facility: [facility] Address: [address] [place] [address] Performed By: #### 2 132-9 ####[facility] LABCLIA [id number] [address] [place] CNOVon 01-27-2024 CNOV Office Visit (NEMOWS ) DESTINEY OCAMPO ([id number]) 1950 M Date Time Provider Department 01/27/24 1:45 PM GEOVANNA HOFFMAN During your visit today, we recorded the following information about you: Pulse Blood pressure Weight 69/minute 105/78 98.2 kg Geovanna Hoffman PA-C 01/27/2024 2:44 PM Signed ESTABLISHED PATIENT VISIT Last visit: 12/24/23 ASSESSMENT/PLAN: 1. Brain fog - ICD9: 799.59, ICD10: R41.89 (primary diagnosis) 2. Diplopia - ICD9: 368.2, ICD10: H53.2 3. Memory loss - ICD9: 780.93, ICD10: R41.3 4. Other fatigue - ICD9: 780.79, ICD10: R53.83 Patient presents for multiple neurologic concerns that been ongoing for at least 6+ years. Had an MRI done in 2018 for this which did not show any acute abnormality, had repeat CT done a few weeks ago that was again normal. Patient reports symptoms have been constant since they started, unsure if they started gradually or acutely. Notes he has had double vision daily, constantly, described as a slight overlay of objects, no [id number] imaging. Has seen an eye doctor multiple times with no etiology found. MRI of the brain in the past was negative, unclear etiology for this. No associated symptoms with it and notes that it is constant. Discussed it could be muscle atrophy of the eyes as well contributing but will repeat MRI due to this and other neurologic concerns. Patient also with significant fatigue, daily, notes that he tried CPAP for 5 to 6 years with no benefit. Notes that he sleeps well but does not seem to matter, he is fatigued all day long every day. Patient does report chronic history of depression, was on Effexor for many years and recently tried Wellbutrin but states he had side effects so he is not on any medications anymore. Notes he did not experience any benefit with the medications and did not notice any change when he came off the meds. However, will obtain basic blood work looking for common causes of fatigue. Finally, patient with brain fog that has been constant over the last 6+ years, notes it is very frustrating as he has been worked up with no answers found. [place] today was 24/30 and discussed this does fit for mild cognitive impairment, discussed possible pseudodementia with likely depression and possibly untreated deep apnea playing a role. Patient did get frustrated with this. Discussed neuropsychological testing but patient does not want to have this completed as he feels it is not related to his other symptoms including fatigue and double vision. Will complete MRI of the brain with volumetric analysis to look for any signs of neurodegenerative disease. Patient to continue following primary care for depression management. Encouraged conservative therapy for memory including increasing physical and cognitive activity. Patient and agreeable to treatment plan of care at this time, questions were answered. Patient to follow-up after studies are completed. Geovanna Hoffman PA-C CHIEF COMPLAINT: follow up HISTORY OF PRESENT ILLNESS: Destiney Ocampo is a 74 year old male, There were no vitals taken for this visit. with a PMH significant for headaches, hyperlipidemia, hypertension, RAJI, DM type II, prostate cancer, diplopia. Last seen for brain fog, diplopia and fatigue. Ongoing for 6 years, frustrated in appt. MRI brain showing moderate volume loss and hippocampus in the 26th percentile, B12 was 310. Patient presents with his to follow-up appointment. Notes that he has been supplementing B12 for about a month but has not noticed a significant change. Still having regular episode of double vision. Notes that 1 thing that is new is if he covers 1 eye 1 object will look smaller and if he looks through the other eye. No change in fatigue or memory. No falls, no new symptoms or concerns. REVIEW OF SYSTEMS GENERAL:No weight loss, malaise or fevers. HEENT:Negative for frequent or significant headaches, No changes in hearing or vision, no nose bleeds or other nasal problems NECK:Negative for lumps, goiter, pain and significant neck swelling RESPIRATORY: Negative for cough, wheezing or shortness of breath. CARDIOVASCULAR: Negative for chest pain, leg swelling or palpitations. GASTROINTESTINAL: Negative for abdominal discomfort, blood in stools or black stools or change in bowel habits GENITOURINARY: No history of dysuria, frequency or incontinence MUSCULOSKELETAL: Negative for joint pain or swelling, back pain or muscle pain. NEUROLOGIC:Negative for focal numbness or weakness, headaches and dizziness or syncope, vision changes, speech/languag changes - EXCEPT that as per HPI above. SKIN:Negative for lesions, rash, and itching. PSYCHIATRIC: Negative for sleep disturbance, mood disorder and recent psychosocial stressors. HEMATOLOGIC/LYMPHATIC/I MMUNOLOGIC:Negative for prolonged bleeding, bruising easily or (more content not included)... Normal [facility] MR Brain WO contraston 01-17 * * *Final Report* * * DATE OF EXAM: Jan 18 2024 2:31PM QBM 0294 - MRI BRAIN WO IVCON / PROCEDURE REASON: multiple diagnoses * * * * Physician Interpretation * * * * EXAMINATION: MRI BRAIN WO IVCON, MRI 3D POST PROCESSING CLINICAL HISTORY: Diplopia Brain fog Memory loss TECHNIQUE: Axial FAY FLAIR, FAY T2, diffusion and susceptibility weighted imaging without contrast, using the ADNI dementia protocol and 3-D post-processing using the M-DISC software at an independent workstation with concurrent physician supervision and images were created, reviewed and archived. MQ: [id number] COMPARISON: Previous MRI of the brain 07/29/2017. Minimal nonspecific white matter changes and mild parenchymal volume loss by visual inspection reported on that exam. RESULT: QUALITATIVE: Acute Intracranial Process: There is no restricted diffusion on this examination to suggest focal acute ischemia or pathologic brain parenchymal cellularity.. Chronic Intracranial Process: Minimal T2/FLAIR hyperintensity within the cerebral white matter is nonspecific, but likely minimal background chronic microvascular ischemic disease. Number of chronic lacunar infarcts: None Location of chronic lacunar infarcts: Not applicable Age related white matter changes (ARWMC) rating: White matter lesions: 1 Basal ganglia lesions: 0 Prior intracranial hemorrhage: Parenchymal microhemorrhages: 0 Other (siderosis/macrohemorrh ages (>10mm): Not Applicable Amyloid Related Imaging Abnormalities: ARIA-E: N/A ARIA-H Microhemorrhage: N/A ARIA-H Siderosis: N/A Qualitative brain and hippocampal volume loss for age: Cortex: Moderate and symmetric White Matter: Moderate and symmetric Hippocampi: Moderate and Symmetric Ventricles: Commensurate with volume loss. Brain Parenchymal Signal and Morphology: The brain parenchyma is otherwise within normal limits of signal and morphology. There is no evidence of an intracranial mass or extraaxial fluid collection. Other Significant Findings: None. General findings: Based on the axial T2 flow void pattern, proximal intracranial arterial vasculature, major cortical draining veins, and dural venous sinuses are patent. QUANTITATIVE: Exam Quality: Good for volumetric analysis. Segmentation: Negligible mismapping by visual inspection. Quantitative Data: Total Hippocampal Volume: Percentile for Age: 26 Asymmetry Index: -3.96 Inferior Lateral Vent Volume: Percentile for age: 94 Asymmetry Index: 5.89 Superior Lateral Vent Volume: Percentile for age: 94 Asymmetry Index: -6.35 Temporal Lobe Cortex Volume: Temporal Lobe Percentile for Age: 72 Temporal Lobe Asymmetry Index: 0.88 Frontal Lobe Cortex Volume: Frontal Lobe Percentile for Age: 90 Frontal Lobe Asymmetry Index: -3.29 Parietal Lobe Cortex Volume: Parietal Lobe Percentile for Age:38 Occipital Lobe Cortex Volume: Occipital Lobe Percentile for Age: 85 Whole Brain Volume Brain Percentile for Age: 51 Concordance between qualitative and quantitative hippocampal volume assessment: Concordant Change in brain volumes: No previous volumetric study for comparison See below for comparison of brain volumes in relation to the prior volumetric study: Not applicable. The prior study was reprocessed with the current algorithm version for adequate comparison. Please note that small variations may be due to standard measurement error. Brain Volume: Current percentile: N/A Previous percentile: N/A Hippocampal Volume: Current percentile: N/A Previous percentile: N/A Superior Lateral Ventricle Volume Change: Current percentile: N/A Previous percentile: N/A Inferior Lateral Ventricle Volume Change: Current percentile: N/A Previous percentile: N/A Mean hippocampal volume loss among normal elderly: 0.7% per year, (-0.3 to 1.7; Brian 2008; also Farhat 2010). DIVISION OF RADIOLOGY Provider, [facility] - 01/18/2024 * * *Final Report* * * DATE OF EXAM: Jan 18 2024 2:31PM QBM 0294 - MRI BRAIN WO IVCON / PROCEDURE REASON: multiple diagnoses * * * * Physician Interpretation * * * * EXAMINATION: MRI BRAIN WO IVCON, MRI 3D POST PROCESSING CLINICAL HISTORY: Diplopia Brain fog Memory loss TECHNIQUE: Axial FAY FLAIR, FAY T2, diffusion and susceptibility weighted imaging without contrast, using the ADNI dementia protocol and 3-D post-processing using the NeuroQuant software at an independent workstation with concurrent physician supervision and images were created, reviewed and archived. MQ: [id number]_1 COMPARISON: Previous MRI of the brain 07/29/2017. Minimal nonspecific white matter changes and mild parenchymal volume loss by visual inspection reported on that exam. RESULT: QUALITATIVE: Acute Intracranial Process: There is no restricted diffusion on this examination to suggest focal acute ischemia or pathologic brain parenchymal cellularity.. Chronic Intracranial Process: Minimal T2/FLAIR hyperintensity within the cerebral white matter is nonspecific, but likely minimal background chronic microvascular ischemic disease. Number of chronic lacunar infarcts: None Location of chronic lacunar infarcts: Not applicable Age related white matter changes (ARWMC) rating: White matter lesions: 1 Basal ganglia lesions: 0 Prior intracranial hemorrhage: Parenchymal microhemorrhages: 0 Other (siderosis/macrohemorrh ages (>10mm): Not Applicable Amyloid Related Imaging Abnormalities: ARIA-E: N/A ARIA-H Microhemorrhage: N/A ARIA-H Siderosis: N/A Qualitative brain and hippocampal volume loss for age: Cortex: Moderate and symmetric White Matter: Moderate and symmetric Hippocampi: Moderate and Symmetric Ventricles: Commensurate with volume loss. Brain Parenchymal Signal and Morphology: The brain parenchyma is otherwise within normal limits of signal and morphology. There is no evidence of an intracranial mass or extraaxial fluid collection. Other Significant Findings: None. General findings: Based on the axial T2 flow void pattern, proximal intracranial arterial vasculature, major cortical draining veins, and dural venous sinuses are patent. QUANTITATIVE: Exam Quality: Good for volumetric analysis. Segmentation: Negligible mismapping by visual inspection. Quantitative Data: Total Hippocampal Volume: Percentile for Age: 26 Asymmetry Index: -3.96 Inferior Lateral Vent Volume: Percentile for age: 94 Asymmetry Index: 5.89 Superior Lateral Vent Volume: Percentile for age: 94 Asymmetry Index: -6.35 Temporal Lobe Cortex Volume: Temporal Lobe Percentile for Age: 72 Temporal Lobe Asymmetry Index: 0.88 Frontal Lobe Cortex Volume: Frontal Lobe Percentile for Age: 90 Frontal Lobe Asymmetry Index: -3.29 Parietal Lobe Cortex Volume: Parietal Lobe Percentile for Age:38 Occipital Lobe Cortex Volume: Occipital Lobe Percentile for Age: 85 Whole Brain Volume Brain Percentile for Age: 51 Concordance between qualitative and quantitative hippocampal volume assessment: Concordant Change in brain volumes: No previous volumetric study for comparison See below for comparison of brain volumes in relation to the prior volumetric study: Not applicable. The prior study was reprocessed with the current algorithm version for adequate comparison. Please note that small variations may be due to standard measurement error. Brain Volume: Current percentile: N/A Previous percentile: N/A Hippocampal Volume: Current percentile: N/A Previous percentile: N/A Superior Lateral Ventricle Volume Change: Current percentile: N/A Previous percentile: N/A Inferior Lateral Ventricle Volume Change: Current percentile: N/A Previous percentile: N/A Mean hippocampal volume loss among normal elderly: 0.7% per year, (-0.3 to 1.7; Brian 2008; also Farhat 2010). IMPRESSION IMPRESSION: * No evidence of an acute intracranial process or intracranial mass. * Moderate generalized volume loss. * Hippocampal volumes at the 26th percentile when compared to age matched normal controls by quantitative analysis. * Minimal white matter disease which is nonspecific but likely reflective of chronic microvascular ischemia. * No evidence of parenchymal microhemorrhages by MRI. REFERENCES: White Matter Lesions: 0 = No lesions, including symmetrical, well-defined caps or bands 1 = Focal Lesions 2 = Beginning of [place]on 3 = Diffuse Involvement of Entire Region Basal Ganglia Lesions: 0 = No Lesions 1 = 1 Focal Lesion (>5mm) 2 = >1 Focal Lesion (>5mm) 3 = Confluent Lesions Farhat Ortiz, et al. The clinical use of structural MRI in Alzheimer disease. Nature Reviews Neurology 6;67 (2010). Brian et al. Validation of (more content not included)... [facility] MR Unspecified body region 3 D post processingon 01-18-2024 * * *Final Report* * * DATE OF EXAM: Jan 18 2024 2:31PM [facility] 0280 - MRI 3D POST PROCESSING / PROCEDURE REASON: multiple diagnoses * * * * Physician Interpretation * * * * EXAMINATION: MRI BRAIN WO IVCON, MRI 3D POST PROCESSING CLINICAL HISTORY: Diplopia Brain fog Memory loss TECHNIQUE: Axial FAY FLAIR, FAY T2, diffusion and susceptibility weighted imaging without contrast, using the ADNI dementia protocol and 3-D post-processing using the M-DISC software at an independent workstation with concurrent physician supervision and images were created, reviewed and archived. MQ: [id number] COMPARISON: Previous MRI of the brain 07/29/2017. Minimal nonspecific white matter changes and mild parenchymal volume loss by visual inspection reported on that exam. RESULT: QUALITATIVE: Acute Intracranial Process: There is no restricted diffusion on this examination to suggest focal acute ischemia or pathologic brain parenchymal cellularity.. Chronic Intracranial Process: Minimal T2/FLAIR hyperintensity within the cerebral white matter is nonspecific, but likely minimal background chronic microvascular ischemic disease. Number of chronic lacunar infarcts: None Location of chronic lacunar infarcts: Not applicable Age related white matter changes (ARWMC) rating: White matter lesions: 1 Basal ganglia lesions: 0 Prior intracranial hemorrhage: Parenchymal microhemorrhages: 0 Other (siderosis/macrohemorrh ages (>10mm): Not Applicable Amyloid Related Imaging Abnormalities: ARIA-E: N/A ARIA-H Microhemorrhage: N/A ARIA-H Siderosis: N/A Qualitative brain and hippocampal volume loss for age: Cortex: Moderate and symmetric White Matter: Moderate and symmetric Hippocampi: Moderate and Symmetric Ventricles: Commensurate with volume loss. Brain Parenchymal Signal and Morphology: The brain parenchyma is otherwise within normal limits of signal and morphology. There is no evidence of an intracranial mass or extraaxial fluid collection. Other Significant Findings: None. General findings: Based on the axial T2 flow void pattern, proximal intracranial arterial vasculature, major cortical draining veins, and dural venous sinuses are patent. QUANTITATIVE: Exam Quality: Good for volumetric analysis. Segmentation: Negligible mismapping by visual inspection. Quantitative Data: Total Hippocampal Volume: Percentile for Age: 26 Asymmetry Index: -3.96 Inferior Lateral Vent Volume: Percentile for age: 94 Asymmetry Index: 5.89 Superior Lateral Vent Volume: Percentile for age: 94 Asymmetry Index: -6.35 Temporal Lobe Cortex Volume: Temporal Lobe Percentile for Age: 72 Temporal Lobe Asymmetry Index: 0.88 Frontal Lobe Cortex Volume: Frontal Lobe Percentile for Age: 90 Frontal Lobe Asymmetry Index: -3.29 Parietal Lobe Cortex Volume: Parietal Lobe Percentile for Age:38 Occipital Lobe Cortex Volume: Occipital Lobe Percentile for Age: 85 Whole Brain Volume Brain Percentile for Age: 51 Concordance between qualitative and quantitative hippocampal volume assessment: Concordant Change in brain volumes: No previous volumetric study for comparison See below for comparison of brain volumes in relation to the prior volumetric study: Not applicable. The prior study was reprocessed with the current algorithm version for adequate comparison. Please note that small variations may be due to standard measurement error. Brain Volume: Current percentile: N/A Previous percentile: N/A Hippocampal Volume: Current percentile: N/A Previous percentile: N/A Superior Lateral Ventricle Volume Change: Current percentile: N/A Previous percentile: N/A Inferior Lateral Ventricle Volume Change: Current percentile: N/A Previous percentile: N/A Mean hippocampal volume loss among normal elderly: 0.7% per year, (-0.3 to 1.7; Brian 2008; also Farhat 2010). DIVISION OF RADIOLOGY Provider, Thalia Dominique [facility] - 01/18/2024 * * *Final Report* * * DATE OF EXAM: Jan 18 2024 2:31PM [facility] 0280 - MRI 3D POST PROCESSING / PROCEDURE REASON: multiple diagnoses * * * * Physician Interpretation * * * * EXAMINATION: MRI BRAIN WO IVCON, MRI 3D POST PROCESSING CLINICAL HISTORY: Diplopia Brain fog Memory loss TECHNIQUE: Axial FAY FLAIR, FAY T2, diffusion and susceptibility weighted imaging without contrast, using the ADNI dementia protocol and 3-D post-processing using the M-DISC software at an independent workstation with concurrent physician supervision and images were created, reviewed and archived. MQ: [id number] COMPARISON: Previous MRI of the brain 07/29/2017. Minimal nonspecific white matter changes and mild parenchymal volume loss by visual inspection reported on that exam. RESULT: QUALITATIVE: Acute Intracranial Process: There is no restricted diffusion on this examination to suggest focal acute ischemia or pathologic brain parenchymal cellularity.. Chronic Intracranial Process: Minimal T2/FLAIR hyperintensity within the cerebral white matter is nonspecific, but likely minimal background chronic microvascular ischemic disease. Number of chronic lacunar infarcts: None Location of chronic lacunar infarcts: Not applicable Age related white matter changes (ARWMC) rating: White matter lesions: 1 Basal ganglia lesions: 0 Prior intracranial hemorrhage: Parenchymal microhemorrhages: 0 Other (siderosis/macrohemorrh ages (>10mm): Not Applicable Amyloid Related Imaging Abnormalities: ARIA-E: N/A ARIA-H Microhemorrhage: N/A ARIA-H Siderosis: N/A Qualitative brain and hippocampal volume loss for age: Cortex: Moderate and symmetric White Matter: Moderate and symmetric Hippocampi: Moderate and Symmetric Ventricles: Commensurate with volume loss. Brain Parenchymal Signal and Morphology: The brain parenchyma is otherwise within normal limits of signal and morphology. There is no evidence of an intracranial mass or extraaxial fluid collection. Other Significant Findings: None. General findings: Based on the axial T2 flow void pattern, proximal intracranial arterial vasculature, major cortical draining veins, and dural venous sinuses are patent. QUANTITATIVE: Exam Quality: Good for volumetric analysis. Segmentation: Negligible mismapping by visual inspection. Quantitative Data: Total Hippocampal Volume: Percentile for Age: 26 Asymmetry Index: -3.96 Inferior Lateral Vent Volume: Percentile for age: 94 Asymmetry Index: 5.89 Superior Lateral Vent Volume: Percentile for age: 94 Asymmetry Index: -6.35 Temporal Lobe Cortex Volume: Temporal Lobe Percentile for Age: 72 Temporal Lobe Asymmetry Index: 0.88 Frontal Lobe Cortex Volume: Frontal Lobe Percentile for Age: 90 Frontal Lobe Asymmetry Index: -3.29 Parietal Lobe Cortex Volume: Parietal Lobe Percentile for Age:38 Occipital Lobe Cortex Volume: Occipital Lobe Percentile for Age: 85 Whole Brain Volume Brain Percentile for Age: 51 Concordance between qualitative and quantitative hippocampal volume assessment: Concordant Change in brain volumes: No previous volumetric study for comparison See below for comparison of brain volumes in relation to the prior volumetric study: Not applicable. The prior study was reprocessed with the current algorithm version for adequate comparison. Please note that small variations may be due to standard measurement error. Brain Volume: Current percentile: N/A Previous percentile: N/A Hippocampal Volume: Current percentile: N/A Previous percentile: N/A Superior Lateral Ventricle Volume Change: Current percentile: N/A Previous percentile: N/A Inferior Lateral Ventricle Volume Change: Current percentile: N/A Previous percentile: N/A Mean hippocampal volume loss among normal elderly: 0.7% per year, (-0.3 to 1.7; Brian 2008; also Farhat 2010). IMPRESSION IMPRESSION: * No evidence of an acute intracranial process or intracranial mass. * Moderate generalized volume loss. * Hippocampal volumes at the 26th percentile when compared to age matched normal controls by quantitative analysis. * Minimal white matter disease which is nonspecific but likely reflective of chronic microvascular ischemia. * No evidence of parenchymal microhemorrhages by MRI. REFERENCES: White Matter Lesions: 0 = No lesions, including symmetrical, well-defined caps or bands 1 = Focal Lesions 2 = Beginning of [place] 3 = Diffuse Involvement of Entire Region Basal Ganglia Lesions: 0 = No Lesions 1 = 1 Focal Lesion (>5mm) 2 = >1 Focal Lesion (>5mm) 3 = Confluent Lesions Farhat Ortiz, et al. The clinical use of structural MRI in Alzheimer disease. Nature Reviews Neurology 6;67 (2010). Brian et al. Validation (more content not included)... [facility] MRI 3D POST PROCESSINGon MRI 3D POST PROCESSING * * *Final Report* * * DATE OF EXAM: Jan 18 2024 2:31PM [facility] 0280 - MRI 3D POST PROCESSING / PROCEDURE REASON: multiple diagnoses * * * * Physician Interpretation * * * * EXAMINATION: MRI BRAIN WO IVCON, MRI 3D POST PROCESSING CLINICAL HISTORY: Diplopia Brain fog Memory loss TECHNIQUE: Axial FAY FLAIR, FAY T2, diffusion and susceptibility weighted imaging without contrast, using the ADNI dementia protocol and 3-D post-processing using the M-DISC software at an independent workstation with concurrent physician supervision and images were created, reviewed and archived. MQ: [id number] COMPARISON: Previous MRI of the brain 07/29/2017. Minimal nonspecific white matter changes and mild parenchymal volume loss by visual inspection reported on that exam. RESULT: QUALITATIVE: Acute Intracranial Process: There is no restricted diffusion on this examination to suggest focal acute ischemia or pathologic brain parenchymal cellularity.. Chronic Intracranial Process: Minimal T2/FLAIR hyperintensity within the cerebral white matter is nonspecific, but likely minimal background chronic microvascular ischemic disease. Number of chronic lacunar infarcts: None Location of chronic lacunar infarcts: Not applicable Age related white matter changes (ARWMC) rating: White matter lesions: 1 Basal ganglia lesions: 0 Prior intracranial hemorrhage: Parenchymal microhemorrhages: 0 Other (siderosis/macrohemorrh ages (>10mm): Not Applicable Amyloid Related Imaging Abnormalities: ARIA-E: N/A ARIA-H Microhemorrhage: N/A ARIA-H Siderosis: N/A Qualitative brain and hippocampal volume loss for age: Cortex: Moderate and symmetric White Matter: Moderate and symmetric Hippocampi: Moderate and Symmetric Ventricles: Commensurate with volume loss. Brain Parenchymal Signal and Morphology: The brain parenchyma is otherwise within normal limits of signal and morphology. There is no evidence of an intracranial mass or extraaxial fluid collection. Other Significant Findings: None. General findings: Based on the axial T2 flow void pattern, proximal intracranial arterial vasculature, major cortical draining veins, and dural venous sinuses are patent. QUANTITATIVE: Exam Quality: Good for volumetric analysis. Segmentation: Negligible mismapping by visual inspection. Quantitative Data: Total Hippocampal Volume: Percentile for Age: 26 Asymmetry Index: -3.96 Inferior Lateral Vent Volume: Percentile for age: 94 Asymmetry Index: 5.89 Superior Lateral Vent Volume: Percentile for age: 94 Asymmetry Index: -6.35 Temporal Lobe Cortex Volume: Temporal Lobe Percentile for Age: 72 Temporal Lobe Asymmetry Index: 0.88 Frontal Lobe Cortex Volume: Frontal Lobe Percentile for Age: 90 Frontal Lobe Asymmetry Index: -3.29 Parietal Lobe Cortex Volume: Parietal Lobe Percentile for Age:38 Occipital Lobe Cortex Volume: Occipital Lobe Percentile for Age: 85 Whole Brain Volume Brain Percentile for Age: 51 Concordance between qualitative and quantitative hippocampal volume assessment: Concordant Change in brain volumes: No previous volumetric study for comparison See below for comparison of brain volumes in relation to the prior volumetric study: Not applicable. The prior study was reprocessed with the current algorithm version for adequate comparison. Please note that small variations may be due to standard measurement error. Brain Volume: Current percentile: N/A Previous percentile: N/A Hippocampal Volume: Current percentile: N/A Previous percentile: N/A Superior Lateral Ventricle Volume Change: Current percentile: N/A Previous percentile: N/A Inferior Lateral Ventricle Volume Change: Current percentile: N/A Previous percentile: N/A Mean hippocampal volume loss among normal elderly: 0.7% per year, (-0.3 to 1.7; Brian 2008; also Farhat 2010). IMPRESSION: * No evidence of an acute intracranial process or intracranial mass. * Moderate generalized volume loss. * Hippocampal volumes at the 26th percentile when compared to age matched normal controls by quantitative analysis. * Minimal white matter disease which is nonspecific but likely reflective of chronic microvascular ischemia. * No evidence of parenchymal microhemorrhages by MRI. REFERENCES: White Matter Lesions: 0 = No lesions, including symmetrical, well-defined caps or bands 1 = Focal Lesions 2 = Beginning of [place] 3 = Diffuse Involvement of Entire Region Basal Ganglia Lesions: 0 = No Lesions 1 = 1 Focal Lesion (>5mm) 2 = >1 Focal Lesion (>5mm) 3 = Confluent Lesions Farhat Ortiz et al. The clinical use of structural MRI in Alzheimer disease. Nature Reviews Neurology 6;67 (2010). Brian et al. Validation of a fully automated 3D hippocampal segmentation method using subjects with Alzheimer's disease mild cognitive impairment, and elderly controls. Neuroimage 43;59 (2008). (more content not included)... Normal [facility] MRI BRAIN WO IVCONon 024 MRI BRAIN WO IVCON * * *Final Report* * * DATE OF EXAM: Jan 18 2024 2:31PM [facility] 0294 - MRI BRAIN WO IVCON / PROCEDURE REASON: multiple diagnoses * * * * Physician Interpretation * * * * EXAMINATION: MRI BRAIN WO IVCON, MRI 3D POST PROCESSING CLINICAL HISTORY: Diplopia Brain fog Memory loss TECHNIQUE: Axial FAY FLAIR, FAY T2, diffusion and susceptibility weighted imaging without contrast, using the ADNI dementia protocol and 3-D post-processing using the M-DISC software at an independent workstation with concurrent physician supervision and images were created, reviewed and archived. MQ: [id number] COMPARISON: Previous MRI of the brain 07/29/2017. Minimal nonspecific white matter changes and mild parenchymal volume loss by visual inspection reported on that exam. RESULT: QUALITATIVE: Acute Intracranial Process: There is no restricted diffusion on this examination to suggest focal acute ischemia or pathologic brain parenchymal cellularity.. Chronic Intracranial Process: Minimal T2/FLAIR hyperintensity within the cerebral white matter is nonspecific, but likely minimal background chronic microvascular ischemic disease. Number of chronic lacunar infarcts: None Location of chronic lacunar infarcts: Not applicable Age related white matter changes (ARWMC) rating: White matter lesions: 1 Basal ganglia lesions: 0 Prior intracranial hemorrhage: Parenchymal microhemorrhages: 0 Other (siderosis/macrohemorrh ages (>10mm): Not Applicable Amyloid Related Imaging Abnormalities: ARIA-E: N/A ARIA-H Microhemorrhage: N/A ARIA-H Siderosis: N/A Qualitative brain and hippocampal volume loss for age: Cortex: Moderate and symmetric White Matter: Moderate and symmetric Hippocampi: Moderate and Symmetric Ventricles: Commensurate with volume loss. Brain Parenchymal Signal and Morphology: The brain parenchyma is otherwise within normal limits of signal and morphology. There is no evidence of an intracranial mass or extraaxial fluid collection. Other Significant Findings: None. General findings: Based on the axial T2 flow void pattern, proximal intracranial arterial vasculature, major cortical draining veins, and dural venous sinuses are patent. QUANTITATIVE: Exam Quality: Good for volumetric analysis. Segmentation: Negligible mismapping by visual inspection. Quantitative Data: Total Hippocampal Volume: Percentile for Age: 26 Asymmetry Index: -3.96 Inferior Lateral Vent Volume: Percentile for age: 94 Asymmetry Index: 5.89 Superior Lateral Vent Volume: Percentile for age: 94 Asymmetry Index: -6.35 Temporal Lobe Cortex Volume: Temporal Lobe Percentile for Age: 72 Temporal Lobe Asymmetry Index: 0.88 Frontal Lobe Cortex Volume: Frontal Lobe Percentile for Age: 90 Frontal Lobe Asymmetry Index: -3.29 Parietal Lobe Cortex Volume: Parietal Lobe Percentile for Age:38 Occipital Lobe Cortex Volume: Occipital Lobe Percentile for Age: 85 Whole Brain Volume Brain Percentile for Age: 51 Concordance between qualitative and quantitative hippocampal volume assessment: Concordant Change in brain volumes: No previous volumetric study for comparison See below for comparison of brain volumes in relation to the prior volumetric study: Not applicable. The prior study was reprocessed with the current algorithm version for adequate comparison. Please note that small variations may be due to standard measurement error. Brain Volume: Current percentile: N/A Previous percentile: N/A Hippocampal Volume: Current percentile: N/A Previous percentile: N/A Superior Lateral Ventricle Volume Change: Current percentile: N/A Previous percentile: N/A Inferior Lateral Ventricle Volume Change: Current percentile: N/A Previous percentile: N/A Mean hippocampal volume loss among normal elderly: 0.7% per year, (-0.3 to 1.7; Brian 2008; also Farhat 2010). IMPRESSION: * No evidence of an acute intracranial process or intracranial mass. * Moderate generalized volume loss. * Hippocampal volumes at the 26th percentile when compared to age matched normal controls by quantitative analysis. * Minimal white matter disease which is nonspecific but likely reflective of chronic microvascular ischemia. * No evidence of parenchymal microhemorrhages by MRI. REFERENCES: White Matter Lesions: 0 = No lesions, including symmetrical, well-defined caps or bands 1 = Focal Lesions 2 = Beginning of [place] 3 = Diffuse Involvement of Entire Region Basal Ganglia Lesions: 0 = No Lesions 1 = 1 Focal Lesion (>5mm) 2 = >1 Focal Lesion (>5mm) 3 = Confluent Lesions Farhat Ortiz, et al. The clinical use of structural MRI in Alzheimer disease. Nature Reviews Neurology 6;67 (2010). Brian et al. Validation of a fully automated 3D hippocampal segmentation method using subjects with Alzheimer's disease mild cognitive impairment, and elderly controls. Neuroimage 43;59 (2008). Homero (more content not included)... Normal [facility] Panel Informationon 01-17 IMPRESSION: * No evidence of an acute intracranial process or intracranial mass. * Moderate generalized volume loss. * Hippocampal volumes at the 26th percentile when compared to age matched normal controls by quantitative analysis. * Minimal white matter disease which is nonspecific but likely reflective of chronic microvascular ischemia. * No evidence of parenchymal microhemorrhages by MRI. REFERENCES: White Matter Lesions: 0 = No lesions, including symmetrical, well-defined caps or bands 1 = Focal Lesions 2 = Beginning of [place] 3 = Diffuse Involvement of Entire Region Basal Ganglia Lesions: 0 = No Lesions 1 = 1 Focal Lesion (>5mm) 2 = >1 Focal Lesion (>5mm) 3 = Confluent Lesions Farhat Ortiz et al. The clinical use of structural MRI in Alzheimer disease. Nature Reviews Neurology 6;67 (2010). Brian et al. Validation of a fully automated 3D hippocampal segmentation method using subjects with Alzheimer's disease mild cognitive impairment, and elderly controls. Neuroimage 43;59 (2008). Haleigh et al. A New Rating Scale for Age-Related White Matter Changes Applicable to MRI and CT. Stroke. 32:1318 (2001). * Asymmetry index defined as difference between left and right volumes divided by mean or [(L-R/Mean) x 100] (%). Age-matched reference charts measure total hippocampal volume (% of intracranial volume). See results from the analysis charts for details. : Manager Flight: PSC[employer] Transcribe Date/Time: Jan 18 2024 2:56P Dictated by : ROSE MARIE HOLMAN MD This examination was interpreted and the report reviewed and electronically signed by: ROSE MARIE HOLMAN MD on Jan 18 2024 3:21PM [facility] DIVISION OF RADIOLOGY Radiology Study observation (narrative) [facility] No Panel InformationOrdered By: Jose Provider on 01-18-2024 [facility] Renee 01-16-2024 [place] Telephone (SAMIR) DESTINEY OCAMPO ([id number]) 1950 Date Time Provider Department 01/16/24 GEOVANNA HOFFMAN During your visit today, we recorded the following information about you: Leigh Casillas RN 01/16/2024 10:15 AM Signed [place]- [facility]- reports they received an order from Jabier Hoffman for patient for MRI brain wo iv contrast, and MRI 3D Post Procedure 3T only AND MRI 3D postprocessing. Reports they do not do 3D post processing 3T only. Reports patient is scheduled for Friday. Asking office to phone her to discuss this order. [phone] Dana Demarco LPN 01/16/2024 12:42 PM Signed Destiney states he will be willing to go to another [facility] to get MRI done. Nurse will forward message to scheduling team. Dana Demarco LPN January 16, 2024 12:42 PM Allergies As of Date: 01/16/2024 Noted Allergy Reaction LISINOPRIL 08/25/2012 3 - Cough Date Reviewed: 12/29/2023 Reviewed by: Ya Feliciano MA - Fully Assessed Reason for Visit: Problem with MRI order [Other] Prescriptions as of 02/16/2024 - cyanocobalamin, vitamin B-12, (VITAMIN B-12 ORAL) Take by mouth. - FOLIC ACID ORAL Take by mouth. - fluticasone propionate (FLONASE NASAL) Use in the nose. - meloxicam (MOBIC) 15 mg tablet Take 1 tablet by mouth once daily. - ketoconazole (NIZORAL) 2 % cream Apply 1 application to affected area two times a day. Continue for 1 week after rash resolves. - metFORMIN ER (GLUCOPHAGE XR) 500 mg 24 hr tablet Take 1 tablet by mouth daily with breakfast. - metoprolol succinate ER (TOPROL XL) 25 mg 24 hr tablet Take 1 tablet by mouth once daily. - omeprazole (PRILOSEC) 20 mg capsule Take 1 capsule by mouth two times a day. - traZODone (DESYREL) 50 mg tablet Take 0.5-1 tablets by mouth at bedtime as needed (sedation). - nystatin (MYCOSTATIN) powder Apply 1 application to affected area four times daily. Continue to use for a week after rash resolves. Use as needed for recurrences - ENTRESTO 49-51 mg tablet Take 1 tablet by mouth two times a day. (getting from patient assistance) - famotidine (PEPCID) 20 mg tablet Take 1 tablet by mouth at bedtime as needed. - Magnesium 250 mg tab Take 1 tablet by mouth two times a day. - Cholecalciferol, Vitamin D3, 50 mcg (2,000 unit) cap Take 1 capsule by mouth once daily. - atorvastatin (LIPITOR) 40 mg tablet TAKE 1 TABLET BY MOUTH EVERY DAY FOR 90 DAYS - aspirin 81 mg chewable tablet Take 81 mg by mouth. - COMPOUNDED PRESCRIPTION Generic Glucometer - I each 50 strips and lancets. Re: Diabetes mellitus controlled with hypoglycemia. - Lancets lancets Test blood sugar(s) 1-2 times daily or as directed. Dx: Type 2 DM - Controlled E11.9 Insulin: No - blood sugar diagnostic (BLOOD GLUCOSE TEST) test strip Test blood sugar(s) 1-2 times daily or as directed. Dx: Type 2 DM - Controlled E11.9 Insulin: No - Blood-Glucose Meter monitoring kit Glucose Meter of Choice (per insurance coverage)- Kit - Dx: Type 2 DM - Controlled E11.9, Test 1-2 times a day or as directed. No insulin - DOCUSATE CALCIUM (STOOL SOFTENER ORAL) Take by mouth as needed. Problem List As Of Date 01/16/2024 Noted Resolved PURE HYPERCHOLESTEROLEM [E78.00] DIVERTICULOSIS OF COLON W/O BLEED [K57.30] Dysthymic disorder [F34.1] 01/03/2021 PAIN HIP JOINT [M25.559] 01/17/2006 DEPRESSION RECURRENT( Moderate) [F33.1] 01/17/2006 05/22/2023 SOMNOLENCE [R40.4] 01/17/2006 01/03/2021 Headache(784.0) [R51] 01/17/2006 11/21/2014 Abdominal pain, other specified site [R10.9] 12/17/2006 11/21/2014 HIATAL HERNIA [K44.9] 04/24/2007 GASTRITIS ANTRAL( W/O Hemorrhage) [K29.60] 04/24/2007 11/21/2014 ESOPHAGITIS REFLUX [K21.00] 04/24/2007 HEMORRHOIDS INTERNAL [K64.8] 04/24/2007 11/21/2014 ACUTE GASTRITIS W/O HEMORRHAGE [K29.00] 04/24/2007 BENIGN NEOPLASM LG BOWEL [D12.6] 04/24/2007 Hypertension [I10] 07/24/2011 Trigger middle finger of right hand [M65.331] 08/29/2011 01/03/2021 Trigger index finger of right hand [M65.321] 08/29/2011 07/16/2016 Diabetes mellitus type 2, controlled, without c*08/15/2014 Neck pain [M54.2] 08/16/2014 Cervical radiculopathy [M54.12] 08/16/2014 Midline thoracic back pain [M54.6] 09/01/2014 Neck pain on left side [M54.2] 09/01/2014 01/03/2021 Numbness and tingling of right upper extremity *09/01/2014 Numbness and tingling in left upper extremity [*09/01/2014 Cervical spondylosis without myelopathy [M47.81*09/01/2014 Benign non-nodular prostatic hyperplasia with l*11/21/2014 Shoulder arthritis [M19.019] 10/05/2015 Prostate cancer (HCC) [C61] 01/16/2017 Pulmonary nodule/lesion, solitary [R91.1] 01/16/2017 RAJI (obstructive sleep apnea) AHI 39 [G47.33] 06/15/2017 Malaise and fatigue [R53.81, R53.83] 06/18/2017 01/03/2021 Complaints of memory disturbance [R41.3] 06/18/2017 H/O concussion [Z87.820] 06/18/2017 08/26/2019 Abnormal x-ray [R93.89] 10 (more content not included)... Normal [facility] 12-30-2023 [facility] Telephone ([facility]) DESTINEY OCAMPO ([id number]) 1950 M Date Time Provider Department 12/30/23 GEOVANNA HOFFMAN [facility] During your visit today, we recorded the following information about you: Geovanna Hoffman PA-C 12/30/2023 7:12 AM Signed All labs are normal with the exception of low B12. This can contribute to fatigue, and numbness and tinging symptoms. We need you to replace as follows: B12 Replacement B12 <400: Vitamin B12 level <400, which indicates deficiency. You may start vitamin B12 supplements [available [id number]] orally, according to the following regimen: Vitamin B12, 2 mg (or 2000 micrograms) by mouth daily x1 month. Take together with folic acid 1 mg daily. THEN maintenance with 1 mg (or 1000 micrograms) daily thereafter. Your PCP may recheck vitamin B12 levels in about 6 months to ensure adequate repletion. LINA Hedrick Samaria, LPN 12/30/2023 10:21 AM Signed Spoke to patient, verified name and date of . Advised patient of message below, advised patient will mail out letter with Vitamin B12 regimen due to not having mychart. Patient verbalized understanding. Dana Demarco LPN December 30, 2023 10:21 AM Allergies As of Date: 12/30/2023 Noted Allergy Reaction LISINOPRIL 08/25/2012 3 - Cough Date Reviewed: 12/29/2023 Reviewed by: Ya Feliciano MA - Fully Assessed Reason for Visit: Patient Update [1234] Cmt: labs Prescriptions as of 12/30/2023 - meloxicam (MOBIC) 15 mg tablet Take 1 tablet by mouth once daily. - ketoconazole (NIZORAL) 2 % cream Apply 1 application to affected area two times a day. Continue for 1 week after rash resolves. - metFORMIN ER (GLUCOPHAGE XR) 500 mg 24 hr tablet Take 1 tablet by mouth daily with breakfast. - metoprolol succinate ER (TOPROL XL) 25 mg 24 hr tablet Take 1 tablet by mouth once daily. - omeprazole (PRILOSEC) 20 mg capsule Take 1 capsule by mouth two times a day. - traZODone (DESYREL) 50 mg tablet Take 0.5-1 tablets by mouth at bedtime as needed (sedation). - nystatin (MYCOSTATIN) powder Apply 1 application to affected area four times daily. Continue to use for a week after rash resolves. Use as needed for recurrences - ENTRESTO 49-51 mg tablet Take 1 tablet by mouth two times a day. (getting from patient assistance) - famotidine (PEPCID) 20 mg tablet Take 1 tablet by mouth at bedtime as needed. - venlafaxine ER (EFFEXOR XR) 75 mg 24 hr capsule Take 1 capsule by mouth daily at bedtime. - Magnesium 250 mg tab Take 1 tablet by mouth two times a day. - Cholecalciferol, Vitamin D3, 50 mcg (2,000 unit) cap Take 1 capsule by mouth once daily. - atorvastatin (LIPITOR) 40 mg tablet TAKE 1 TABLET BY MOUTH EVERY DAY FOR 90 DAYS - aspirin 81 mg chewable tablet Take 81 mg by mouth. - COMPOUNDED PRESCRIPTION Generic Glucometer - I each 50 strips and lancets. Re: Diabetes mellitus controlled with hypoglycemia. - Lancets lancets Test blood sugar(s) 1-2 times daily or as directed. Dx: Type 2 DM - Controlled E11.9 Insulin: No - blood sugar diagnostic (BLOOD GLUCOSE TEST) test strip Test blood sugar(s) 1-2 times daily or as directed. Dx: Type 2 DM - Controlled E11.9 Insulin: No - Blood-Glucose Meter monitoring kit Glucose Meter of Choice (per insurance coverage)- Kit - Dx: Type 2 DM - Controlled E11.9, Test 1-2 times a day or as directed. No insulin - DOCUSATE CALCIUM (STOOL SOFTENER ORAL) Take by mouth as needed. Problem List As Of Date 12/30/2023 Noted Resolved PURE HYPERCHOLESTEROLEM [E78.00] DIVERTICULOSIS OF COLON W/O BLEED [K57.30] Dysthymic disorder [F34.1] 01/03/2021 PAIN HIP JOINT [M25.559] 01/17/2006 DEPRESSION RECURRENT( Moderate) [F33.1] 01/17/2006 05/22/2023 SOMNOLENCE [R40.4] 01/17/2006 01/03/2021 Headache(784.0) [R51] 01/17/2006 11/21/2014 Abdominal pain, other specified site [R10.9] 12/17/2006 11/21/2014 HIATAL HERNIA [K44.9] 04/24/2007 GASTRITIS ANTRAL( W/O Hemorrhage) [K29.60] 04/24/2007 11/21/2014 ESOPHAGITIS REFLUX [K21.00] 04/24/2007 HEMORRHOIDS INTERNAL [K64.8] 04/24/2007 11/21/2014 ACUTE GASTRITIS W/O HEMORRHAGE [K29.00] 04/24/2007 BENIGN NEOPLASM LG BOWEL [D12.6] 04/24/2007 Hypertension [I10] 07/24/2011 Trigger middle finger of right hand [M65.331] 08/29/2011 01/03/2021 Trigger index finger of right hand [M65.321] 08/29/2011 07/16/2016 Diabetes mellitus type 2, controlled, without c*08/15/2014 Neck pain [M54.2] 08/16/2014 Cervical radiculopathy [M54.12] 08/16/2014 Midline thoracic back pain [M54.6] 09/01/2014 Neck pain on left side [M54.2] 09/01/2014 01/03/2021 Numbness and tingling of right upper extremity *09/01/2014 Numbness and tingling in left upper extremity [*09/01/2014 Cervical spondylosis without myelopathy [M47.81*09/01/2014 Benign non-nodular prostatic hyperplasia with l*11/21/2014 Shoulder arthritis [M19.019] 10/05/2015 Pr (more content not included)... Normal [facility] CNOVon 12-29-2023 CNOV Office Visit ([facility] ) DESTINEY OCAMPO ([id number]) 1950 Date Time Provider Department 12/29/23 11:00 AM NAKUL MADDOX [facility] During your visit today, we recorded the following information about you: Nakul Maddox MD 12/29/2023 11:03 AM Signed CONSULT ORTHOPAEDIC: HIP PRIMARY CARE PHYSICIAN: Keern Arce MD REFERRING PROVIDER: No referring provider defined for this encounter. ASSESSMENT AND PLAN 73-year-old male who presents to the office today for bilateral hip pain right greater than left. He states that the right hip is a 9 out of 10 and the left hip is a 4 out of 10 in severity. He states that he did have a cortisone injection into the right hip approximately 10 years ago which did not provide much relief. Denies using any current medications for pain, physical therapy, or prior surgeries to the hips. Patient does not smoke. Denies any history of blood clots or use of blood thinners. Patient has used meloxicam in the past which seems to provide some benefit in pain. Hx of DM2 last A1c 6.8 Patient has failed conservative treatment for with regards to their R hip degenerative disease. Discussed surgical treatment in the form of a total hip replacement to address their condition. Discussed the benefits of the operation as well as the risks which include infection, dislocation, femoral nerve palsy, sciatic nerve palsy, dislocation, fracture, loosening of the components, DVT/PE, further need for revision surgery, and other complications related to anesthesia. Discussed various approaches used for total hip arthroplasty including posterior and Anterior-Based Muscle Sparing (ABMS). Patient understands the procedure, risks, and benefits and wishes to proceed with a R Anterior-Based Muscle Sparing total hip arthroplasty. Will schedule appointment for Preop Anesthesia Evaluation. The surgery will be scheduled for [facility]. Surgery: R ABMS INES DVT ppx: ASA Abx: ancef + duricef 1 week TXA: IV Nakul Maddox MD Impression: Bilateral Hip Severe Degenerative Osteoarthritis, Primary Diagnoses: No diagnosis found. Based upon the evaluation today and after discussions with Destiney Allison Terrence, Destiney Ocampo has significant, worsening pain at the hip. This pain is increased with activity and weight bearing, and interferes with activities of daily living. These symptoms have continued despite a number of non-surgical measures, including a trial of oral pain medication (for at least 12 weeks). At this point, the patient will not benefit from further PT due to the severity of their condition. The patient's physical examination is consistent with limitations in range of motion, pain with passive range of motion, and an antalgic gait. These examination findings are corroborated by imaging findings of joint space narrowing, periarticular osteophyte formation, and subchondral sclerosis. The patient has been treated by the practice and all reasonable treatments have failed to control the disease, which causes significant pain and limits activities of daily living. The patient has failed conservative treatment and joint replacement surgery was discussed and agreed upon by both provider and patient. The patient has elected to proceed with surgical management to improve function and relieve pain refractory to non-surgical measures: Right Primary Total Hip Arthroplasty as evidenced by six months of unsuccessful non-operative treatment as outlined in the HPI below. Surgery Details Date and Location: At [place] on TBD. Implants: Both Robotic: No The risks and benefits of surgery were discussed at length including but not limited to the risks of infection, bleeding, nerve or blood vessel injury, deep venous thrombosis, pulmonary embolism, , paralysis, hip dislocation, leg length discrepancy (including requiring use of permanent shoe lift), bone fracture, component loosening or failure requiring re-operation or amputation. Informed consent was obtained and the patient was scheduled. We also discussed fixation strategies including cement and cementless fixation and modern alternative bearings including metal or ceramic with cross-linked polyethylene, eyzrvhn-af-iqoldxa and oeqew-pl-pkqsz as well as advantages and disadvantages of each. We also discussed less invasive surgical approaches and reported benefits and risks of these approaches. The patient has been ordered: No orders found for this visit on 12/29/23. Anemia Screen Albumin Level HbA1C ts CONSULTS: IMPACT/PACE Consult for preoperative clearance. Total Joint Athroplasty - Risk Calculator Risk Factors for Total Knee Arthroplasty (TKA) Major Risk Factors Obesity Unknown Risk High: BMI > 40 Moderate: BMI 30-40 Normal: BMI < 30 Diabetes Moderate Risk High: A1C > 8 Moderate: A1C 7-8 Normal: A (more content not included)... Normal [facility] 12-25-2023 [place] Telephone ([facility]) DESTINEY OCAMPO ([id number]) 1950 M Date Time Provider Department 12/25/23 GEOVANNA HOFFMAN During your visit today, we recorded the following information about you: Sasha Kamara RN 12/25/2023 4:05 PM Signed Patient's spouse Pat is calling to ask for status update of referral for patient to have Brain MRI at [facility]. They would like to schedule this when able. Please call spouse with any updates of referral. Patient also given [facility] phone number to contact their Central Scheduling department as well. CHRISTOPH Dumont Samaria, LPN 12/25/2023 4:27 PM Signed Spoke to patient, advised referral has approved. Advised patient to call [facility] central scheduling to schedule appointment. Patient verbalized understanding. Dana Demarco LPN December 25, 2023 4:26 PM Allergies As of Date: 12/25/2023 Noted Allergy Reaction LISINOPRIL 08/25/2012 3 - Cough Date Reviewed: 12/24/2023 Reviewed by: Geovanna Hoffman PA-C - Fully Assessed Reason for Visit: Patient Question [4967] Prescriptions as of 12/25/2023 - meloxicam (MOBIC) 15 mg tablet Take 1 tablet by mouth once daily. - ketoconazole (NIZORAL) 2 % cream Apply 1 application to affected area two times a day. Continue for 1 week after rash resolves. - metFORMIN ER (GLUCOPHAGE XR) 500 mg 24 hr tablet Take 1 tablet by mouth daily with breakfast. - metoprolol succinate ER (TOPROL XL) 25 mg 24 hr tablet Take 1 tablet by mouth once daily. - omeprazole (PRILOSEC) 20 mg capsule Take 1 capsule by mouth two times a day. - traZODone (DESYREL) 50 mg tablet Take 0.5-1 tablets by mouth at bedtime as needed (sedation). - nystatin (MYCOSTATIN) powder Apply 1 application to affected area four times daily. Continue to use for a week after rash resolves. Use as needed for recurrences - ENTRESTO 49-51 mg tablet Take 1 tablet by mouth two times a day. (getting from patient assistance) - famotidine (PEPCID) 20 mg tablet Take 1 tablet by mouth at bedtime as needed. - venlafaxine ER (EFFEXOR XR) 75 mg 24 hr capsule Take 1 capsule by mouth daily at bedtime. - Magnesium 250 mg tab Take 1 tablet by mouth two times a day. - Cholecalciferol, Vitamin D3, 50 mcg (2,000 unit) cap Take 1 capsule by mouth once daily. - atorvastatin (LIPITOR) 40 mg tablet TAKE 1 TABLET BY MOUTH EVERY DAY FOR 90 DAYS - aspirin 81 mg chewable tablet Take 81 mg by mouth. - COMPOUNDED PRESCRIPTION Generic Glucometer - I each 50 strips and lancets. Re: Diabetes mellitus controlled with hypoglycemia. - Lancets lancets Test blood sugar(s) 1-2 times daily or as directed. Dx: Type 2 DM - Controlled E11.9 Insulin: No - blood sugar diagnostic (BLOOD GLUCOSE TEST) test strip Test blood sugar(s) 1-2 times daily or as directed. Dx: Type 2 DM - Controlled E11.9 Insulin: No - Blood-Glucose Meter monitoring kit Glucose Meter of Choice (per insurance coverage)- Kit - Dx: Type 2 DM - Controlled E11.9, Test 1-2 times a day or as directed. No insulin - DOCUSATE CALCIUM (STOOL SOFTENER ORAL) Take by mouth as needed. Problem List As Of Date 12/25/2023 Noted Resolved PURE HYPERCHOLESTEROLEM [E78.00] DIVERTICULOSIS OF COLON W/O BLEED [K57.30] Dysthymic disorder [F34.1] 01/03/2021 PAIN HIP JOINT [M25.559] 01/17/2006 DEPRESSION RECURRENT( Moderate) [F33.1] 01/17/2006 05/22/2023 SOMNOLENCE [R40.4] 01/17/2006 01/03/2021 Headache(784.0) [R51] 01/17/2006 11/21/2014 Abdominal pain, other specified site [R10.9] 12/17/2006 11/21/2014 HIATAL HERNIA [K44.9] 04/24/2007 GASTRITIS ANTRAL( W/O Hemorrhage) [K29.60] 04/24/2007 11/21/2014 ESOPHAGITIS REFLUX [K21.00] 04/24/2007 HEMORRHOIDS INTERNAL [K64.8] 04/24/2007 11/21/2014 ACUTE GASTRITIS W/O HEMORRHAGE [K29.00] 04/24/2007 BENIGN NEOPLASM LG BOWEL [D12.6] 04/24/2007 Hypertension [I10] 07/24/2011 Trigger middle finger of right hand [M65.331] 08/29/2011 01/03/2021 Trigger index finger of right hand [M65.321] 08/29/2011 07/16/2016 Diabetes mellitus type 2, controlled, without c*08/15/2014 Neck pain [M54.2] 08/16/2014 Cervical radiculopathy [M54.12] 08/16/2014 Midline thoracic back pain [M54.6] 09/01/2014 Neck pain on left side [M54.2] 09/01/2014 01/03/2021 Numbness and tingling of right upper extremity *09/01/2014 Numbness and tingling in left upper extremity [*09/01/2014 Cervical spondylosis without myelopathy [M47.81*09/01/2014 Benign non-nodular prostatic hyperplasia with l*11/21/2014 Shoulder arthritis [M19.019] 10/05/2015 Prostate cancer (HCC) [C61] 01/16/2017 Pulmonary nodule/lesion, solitary [R91.1] 01/16/2017 RAJI (obstructive sleep apnea) AHI 39 [G47.33] 06/15/2017 Malaise and fatigue [R53.81, R53.83] 06/18/2017 01/03/2021 Complaints of memory disturbance [R41.3] 06/18/2017 H/O concussion [Z87.820] 06/18/2017 08/26/2019 Abnormal x-ray [R93.89] 11/20/2021 Chronic fatigue [R5 (more content not included)... Normal [facility] CNOVon 12-24-2023 CNOV Office Visit (SAMIR ) DESTINEY OCAMPO ([id number]) 1950 M Date Time Provider Department 12/24/23 8:30 AM GEOVANNA HOFFMAN During your visit today, we recorded the following information about you: Pulse Blood pressure Weight 69/minute 111/69 100 kg Geovanna Hoffman PA-C 12/24/2023 10:05 AM Signed [facility] for General Neurology Name: Destiney Ocampo Age: [age] year old Gender: male Primary Care Provider: Keren Arce MD Consult requested for vision changes and headache by Lon Garcia. Recommendations will be communicated via shared medical record or US mail. Chief Complaint:New Patient (Diplopia, headaches) 12/24/2023 - General Neurology, Geovanna Hoffman PA-C ASSESSMENT ASSESSMENT/PLAN: 1. Brain fog - ICD9: 799.59, ICD10: R41.89 (primary diagnosis) 2. Diplopia - ICD9: 368.2, ICD10: H53.2 3. Memory loss - ICD9: 780.93, ICD10: R41.3 4. Other fatigue - ICD9: 780.79, ICD10: R53.83 Patient presents for multiple neurologic concerns that been ongoing for at least 6+ years. Had an MRI done in 2018 for this which did not show any acute abnormality, had repeat CT done a few weeks ago that was again normal. Patient reports symptoms have been constant since they started, unsure if they started gradually or acutely. Notes he has had double vision daily, constantly, described as a slight overlay of objects, no wlqh-gg-aovi imaging. Has seen an eye doctor multiple times with no etiology found. MRI of the brain in the past was negative, unclear etiology for this. No associated symptoms with it and notes that it is constant. Discussed it could be muscle atrophy of the eyes as well contributing but will repeat MRI due to this and other neurologic concerns. Patient also with significant fatigue, daily, notes that he tried CPAP for 5 to 6 years with no benefit. Notes that he sleeps well but does not seem to matter, he is fatigued all day long every day. Patient does report chronic history of depression, was on Effexor for many years and recently tried Wellbutrin but states he had side effects so he is not on any medications anymore. Notes he did not experience any benefit with the medications and did not notice any change when he came off the meds. However, will obtain basic blood work looking for common causes of fatigue. Finally, patient with brain fog that has been constant over the last 6+ years, notes it is very frustrating as he has been worked up with no answers found. [place] today was 24/30 and discussed this does fit for mild cognitive impairment, discussed possible pseudodementia with likely depression and possibly untreated deep apnea playing a role. Patient did get frustrated with this. Discussed neuropsychological testing but patient does not want to have this completed as he feels it is not related to his other symptoms including fatigue and double vision. Will complete MRI of the brain with volumetric analysis to look for any signs of neurodegenerative disease. Patient to continue following primary care for depression management. Encouraged conservative therapy for memory including increasing physical and cognitive activity. Patient and agreeable to treatment plan of care at this time, questions were answered. Patient to follow-up after studies are completed. Geovanna Hoffman PA-C Encounter Diagnosis ICD-10-CM 1. Brain fog R41.89 MRI BRAIN WO IVCON MRI 3D POST PROCESSING NEUROPSYCHOLOGICAL TESTING CONSULT 2. Diplopia H53.2 MRI 3D POST PROCESSING 3. Headaches R51.9 MRI 3D POST PROCESSING 4. Memory loss R41.3 MRI BRAIN WO IVCON MRI 3D POST PROCESSING VITAMIN B12 THYROID STIMULATING HORMONE METHYLMALONIC ACID SYPHILIS TREPONEMAL W/REFLEX FOLATE, SERUM NEUROPSYCHOLOGICAL TESTING CONSULT 5. Other fatigue R53.83 Return in about 3 months (around 03/25/2024). Chart, labs,and relevant images reviewed. HPI: CT brain ordered for double visoin and headaches, this was normal. This is a 73 year old male presenting with multiple neurologic concerns. Patient notes that for at least 6+ years he has been experiencing daily double vision, significant daytime fatigue and brain fog. The symptoms are constant, unchanged, unsure if they started gradually her son. Did have an MRI in the past that was normal. Notes that the double vision is described as seeing 2 of something slightly layered on top of each other, not [id number]. It is constant, has seen an eye doctor multiple times, most recently was a few months ago and no abnormalities were found. No blurred vision with it, no headaches, no other symptoms associated with the double vision. Has tried glasses but no help with these. Regarding fatigue, notes this has been chronic for at least 6+ years, notes that every day he is exhausted. Had a sleep study which showed sleep apnea and he tried a CPAP machine fo (more content not included)... Normal [facility] Folate Hugo-Anisha 12-24-19 24 Folate [Mass/Vol] 10.5 ng/mL Normal >4.7 [facility] Comment on above: Order Comment: Speci men Type: BLOOD SPECIMENOrdering Facility: [facility] Address: [address] [place] [address] Performed By: #### 2 132-9, 2284-8, 3016-3 ####[facility] [id number] [place] [id number] [place] Methylmalonate SerPl-sCncon 12-24-2023 Methylmalonate [Moles/Vol] 0.09 umol/L Normal <=0.40 [facility] Comment on above: Order Comment: Speci men Type: BLOOD SPECIMENOrdering Facility: [facility] Address: [address] [place] [address] Result Comment: This test was developed, and its performance characteristics determined by the [facility] Department of Pathology and Laboratory Medicine. It has not been cleared or approved by the FDA. The [facility] Department of Pathology and Laboratory Medicine is regulated under CLIA as qualified to perform high-complexity testing. This test is used for clinical purposes. It should not be regarded as investigational or for research. Performed By: #### 1 3964-2 ####[facility] [id number] [place] [address] [place] Reagin and Treponema pallidu m IgG and IgM [Interp]on 12-24-2023 T. pallidum IgG+IgM IA Ql (S) Non-Reactive Normal Nonreactive [facility] Comment on above: Order Comment: Razai men Type: BLOOD SPECIMENOrdering Facility: [facility] Address: [address] [place] [address] Performed By: #### 7 3752-8 ####[facility] [id number] [place] [address] [place] Reagin+T pallidum IgG+IgM Se rPl-Impon 12-24-2023 Reagin and Treponema pallidum IgG and IgM [Interp] Cannot exclude recent Treponemal infection if specimen collected within 7-10 days after appearance of suspect lesions or 2-3 weeks after an exposure. Clinical correlation is required. Normal [facility] Comment on above: Order Comment: Speci men Type: BLOOD SPECIMENOrdering Facility: [facility] Address: [address] [place] [address] Performed By: #### 7 3752-8 ####[facility] [id number] [address] [place] TSH SerPl-aCncon 12-24-2023 TSH Qn 2.390 m[IU]/L Normal 0.270-4.200 [facility] [facility] Comment on above: Order Comment: Speci men Type: BLOOD SPECIMENOrdering Facility: [facility] Address: [address] [place] [address] Performed By: #### 2 132-9, 2284-8, 3016-3 ####[facility] LABIA [id number] [address] [place] Vit B12 SerPl-mCncon 024 Cobalamin (Vitamin B12) [Mass/Vol] 310 pg/mL Normal 232-1245 [facility] Comment on above: Order Comment: Speci men Type: BLOOD SPECIMENOrdering Facility: [facility] Address: [address] [place] [address] Performed By: #### 2 132-9, 2284-8, 3016-3 ####[facility]IA [id number] [address] [place] Renee 12-15-2023 JOHNN Telephone (GUZMAN) DESTINEY OCAMPO ([id number]) 1950 M Date Time Provider Department 12/15/23 NAKUL MADDOX During your visit today, we recorded the following information about you: Maria Fernanda Win 12/15/2023 1:24 PM Signed Patient has already seen Breonna regarding hip pain. He would now like to come in and see Dr. Maddox to talk about surgery and get scheduled. Please reach out and schedule patient for an appointment to discuss surgery with Dr. Maddox for total hip replacement. Maria Fernanda [facility] Cristiane Dejesus 12/15/2023 2:38 PM Signed Lvm for patient to call back and schedule an appointment with Dr. [facility] 12/19/2023 1:19 PM Signed Patient has been scheduled for 12-29-2023. Maria Fernanda [facility] Allergies As of Date: 12/15/2023 Noted Allergy Reaction LISINOPRIL 08/25/2012 3 - Cough Date Reviewed: 12/12/2023 Reviewed by: Breonna Polk PA-C - Fully Assessed Reason for Visit: Appointment [186] Prescriptions as of 12/19/2023 - meloxicam (MOBIC) 15 mg tablet Take 1 tablet by mouth once daily. - ketoconazole (NIZORAL) 2 % cream Apply 1 application to affected area two times a day. Continue for 1 week after rash resolves. - metFORMIN ER (GLUCOPHAGE XR) 500 mg 24 hr tablet Take 1 tablet by mouth daily with breakfast. - metoprolol succinate ER (TOPROL XL) 25 mg 24 hr tablet Take 1 tablet by mouth once daily. - omeprazole (PRILOSEC) 20 mg capsule Take 1 capsule by mouth two times a day. - traZODone (DESYREL) 50 mg tablet Take 0.5-1 tablets by mouth at bedtime as needed (sedation). - nystatin (MYCOSTATIN) powder Apply 1 application to affected area four times daily. Continue to use for a week after rash resolves. Use as needed for recurrences - ENTRESTO 49-51 mg tablet Take 1 tablet by mouth two times a day. (getting from patient assistance) - famotidine (PEPCID) 20 mg tablet Take 1 tablet by mouth at bedtime as needed. - venlafaxine ER (EFFEXOR XR) 75 mg 24 hr capsule Take 1 capsule by mouth daily at bedtime. - Magnesium 250 mg tab Take 1 tablet by mouth two times a day. - Cholecalciferol, Vitamin D3, 50 mcg (2,000 unit) cap Take 1 capsule by mouth once daily. - atorvastatin (LIPITOR) 40 mg tablet TAKE 1 TABLET BY MOUTH EVERY DAY FOR 90 DAYS - aspirin 81 mg chewable tablet Take 81 mg by mouth. - COMPOUNDED PRESCRIPTION Generic Glucometer - I each 50 strips and lancets. Re: Diabetes mellitus controlled with hypoglycemia. - Lancets lancets Test blood sugar(s) 1-2 times daily or as directed. Dx: Type 2 DM - Controlled E11.9 Insulin: No - blood sugar diagnostic (BLOOD GLUCOSE TEST) test strip Test blood sugar(s) 1-2 times daily or as directed. Dx: Type 2 DM - Controlled E11.9 Insulin: No - Blood-Glucose Meter monitoring kit Glucose Meter of Choice (per insurance coverage)- Kit - Dx: Type 2 DM - Controlled E11.9, Test 1-2 times a day or as directed. No insulin - DOCUSATE CALCIUM (STOOL SOFTENER ORAL) Take by mouth as needed. Problem List As Of Date 12/15/2023 Noted Resolved PURE HYPERCHOLESTEROLEM [E78.00] DIVERTICULOSIS OF COLON W/O BLEED [K57.30] Dysthymic disorder [F34.1] 01/03/2021 PAIN HIP JOINT [M25.559] 01/17/2006 DEPRESSION RECURRENT( Moderate) [F33.1] 01/17/2006 05/22/2023 SOMNOLENCE [R40.4] 01/17/2006 01/03/2021 Headache(784.0) [R51] 01/17/2006 11/21/2014 Abdominal pain, other specified site [R10.9] 12/17/2006 11/21/2014 HIATAL HERNIA [K44.9] 04/24/2007 GASTRITIS ANTRAL( W/O Hemorrhage) [K29.60] 04/24/2007 11/21/2014 ESOPHAGITIS REFLUX [K21.00] 04/24/2007 HEMORRHOIDS INTERNAL [K64.8] 04/24/2007 11/21/2014 ACUTE GASTRITIS W/O HEMORRHAGE [K29.00] 04/24/2007 BENIGN NEOPLASM LG BOWEL [D12.6] 04/24/2007 Hypertension [I10] 07/24/2011 Trigger middle finger of right hand [M65.331] 08/29/2011 01/03/2021 Trigger index finger of right hand [M65.321] 08/29/2011 07/16/2016 Diabetes mellitus type 2, controlled, without c*08/15/2014 Neck pain [M54.2] 08/16/2014 Cervical radiculopathy [M54.12] 08/16/2014 Midline thoracic back pain [M54.6] 09/01/2014 Neck pain on left side [M54.2] 09/01/2014 01/03/2021 Numbness and tingling of right upper extremity *09/01/2014 Numbness and tingling in left upper extremity [*09/01/2014 Cervical spondylosis without myelopathy [M47.81*09/01/2014 Benign non-nodular prostatic hyperplasia with l*11/21/2014 Shoulder arthritis [M19.019] 10/05/2015 Prostate cancer (HCC) [C61] 01/16/2017 Pulmonary nodule/lesion, solitary [R91.1] 01/16/2017 RAJI (obstructive sleep apnea) AHI 39 [G47.33] 06/15/2017 Malaise and fatigue [R53.81, R53.83] 06/18/2017 01/03/2021 Complaints of memory disturbance [R41.3] 06/18/2017 H/O concussion [Z87.820] 06/18/2017 08/26/2019 Abnormal x-ray [R93.89] 11/20/2021 Chronic fatigue [R53.82] 05/22/2023 Headaches [R51.9] 05/22/2023 (more content not included)... Normal [facility] CNOVon 12-10-2023 CNOV Office Visit (ORNA ) DESTINEY OCAMPO ([id number]) 1950 M Date Time Provider Department 12/10/23 3:30 PM BREONNA POLK During your visit today, we recorded the following information about you: Breonna Polk PA-C 12/12/2023 7:42 AM Signed CONSULT ORTHOPAEDIC: HIP PRIMARY CARE PHYSICIAN: Keren Arce MD REFERRING PROVIDER: No referring provider defined for this encounter. ASSESSMENT AND PLAN Destiney is a 73-year-old male who presents to the office today for bilateral hip pain right greater than left. He states that the right hip is a 9 out of 10 and the left hip is a 4 out of 10 in severity. He states that he did have a cortisone injection into the right hip approximately 10 years ago which did not provide much relief. Denies using any current medications for pain, physical therapy, or prior surgeries to the hips. Patient does not smoke. Denies any history of blood clots or use of blood thinners. Patient has used meloxicam in the past which seems to provide some benefit in pain. We discussed various treatment options including anti-inflammatories, physical therapy, repeat intra-articular cortisone injection and ultimately surgical intervention with total hip arthroplasty. Due to the patient's joint space on x-ray and minimal conservative measures thus far, we will provide him with a prescription for meloxicam 15 mg to be taken daily. We did discuss the possibility of intra-articular cortisone injection should he require more aggressive therapy. We did discuss total hip arthroplasty as this would be the final step in taking care of his hip arthritis. Patient was provided with contact information for myself and Dr. Nakul Maddox should he choose to pursue surgical intervention. Impression: Bilateral Hip Moderate Degenerative Osteoarthritis, Primary Diagnoses: (M16.0) Primary osteoarthritis of both hips (primary encounter diagnosis) After discussion with Destiney Ocampo, continued non-operative management of NSAIDS was chosen. The patient currently has had six months of unsuccessful non-operative treatment as outlined in the HPI below and progressive symptoms. Progressive symptoms include: Pain worsened by weight bearing Pain effecting living situation Pain limiting ability to stay fit and healthy Unable to ambulate 2 blocks without significant pain and dysfunction. The patient has been ordered: Office Visit on 12/10/23 meloxicam (MOBIC) 15 mg tablet No orders placed today. CONSULTS: Patient does not require consults for optimization at this time. Total Joint Athroplasty - Risk Calculator Risk Factors for Total Knee Arthroplasty (TKA) Major Risk Factors Obesity Unknown Risk High: BMI > 40 Moderate: BMI 30-40 Normal: BMI < 30 Diabetes Moderate Risk High: A1C > 8 Moderate: A1C 7-8 Normal: A1C < 7 Hx of DVT / PE normal High: dx of DVT / PE Normal: no dx of DVT / PE Smoking normal High: Current smoker Normal: Non smoker Narcotics Use normal High:NarxCare >=300 Moderate: 100-299 Normal: 0-99 Depression normal High: PHQ-9 >14 Moderate: PHQ-9 5-14 Normal: PHQ-9 < 5 Area Deprivation Index (MARTHA) Unknown Risk High: MARTHA Score > 75 Moderate: MARTHA 50-75 Normal: MARTHA < 50 Obesity: height and/or weight are out of date (There is no height and/or weight reading in the past 365 days, so the below BMI readings may be inaccurate) BMI Readings from Last 3 Encounters: 10/15/23 : 33.25 kg/m? 05/07/23 : (P) 33.67 kg/m? 04/16/23 : (P) 33.67 kg/m? Diabetes: Well controlled - Destiney has been diagnosed with Type 2 Diabetes. His last Hemoglobin A1C was 6.8 (10/07/2023). Pt is followed by Lon Garcia for Type 2 Diabetes - last seen on 10/15/2023. Area Deprivation Index (MARTHA) 08/10/2021 07/26/2022 MARTHA Score National Score 48 48 Patient Health Questionnaire (PHQ-9) 01/16/2017 08/10/2021 10/15/2023 PHQ-9 PHQ-2 Score 6 0 0 PHQ-9 Score 14 (0-4) minimal depression, (5-9) mild depression, (10-14) moderate depression, (15-19) moderately severe depression, (20-27) severe depression Bone Density Risk Screen Destiney Ocampo is at risk for bone loss and has not had a bone densitometry scan in the last 2 years (date of last scan: None on file). Recommend a bone densitometry scan and if indicated on the bone density results, a consult to a bone health specialist (Rheumatology, Endocrinology, or Women's Health) for bone assessment. Risk Factors: Use of Proton Pump Inhibitors Prednisone or use of systemic steroids Additional Risk Factors Obstructive Sleep Apnea (RAJI) Malnutrition: No Malnutrition Screening Tool (MST) score on file- please complete the MST screening tool (click here to open) and refresh the note. ACTIVE PROBLEM LIST Pure Hypercholesterolemia Diverticulosis of Colon (Without Mention of Hemorrhage) PAIN HIP JOINT HIATAL HERNIA ESOPHAGITIS REFLUX Acute Gastr (more content not included)... Normal [facility] XR HIP TALA 5V PEL+ AP/LAT EA HIPon 12-10-2023 XR HIP TALA 5V PEL+ AP/LAT EA HIP * * *Final Report* * * DATE OF EXAM: Dec 10 2023 2:45PM BC 5353 - XR HIP TALA 5V PEL+ AP/LAT EA HIP / PROCEDURE REASON: multiple diagnoses * * * * Physician Interpretation * * * * Pelvis and Bilateral hips HISTORY: Indication: Bilateral hip pain Bilateral hip pain bilateral hip pain With last marker, weight bearing when possible, low pelvis TECHNIQUE: Images: XR HIP TALA 5V PEL+ AP/LAT EA HIP Comparison: 06/26/2020 RESULT: Findings: Moderate degenerative changes L4-5 and L5-S1 level. Pelvis: No fractures or dislocations are seen. Bone density appears well preserved. Severe narrowing of both hip joints. Right hip: No fractures or dislocations are seen. Left hip: No fractures or dislocations are seen. IMPRESSION: Findings as discussed under Results portion of report. Manager Flight: HELADIO Transcribe Date/Time: Dec 16 2023 4:00P Dictated by : TWYLA HANSEN DO This examination was interpreted and the report reviewed and electronically signed by: TWYLA HANSEN DO on Dec 16 2023 4:01PM EST [id number] [facility] XR LEG FRONTL HIP-ANKL MECH AXISon 12-10-2023 XR LEG FRONTL HIP-ANKL MECH AXIS * * *Final Report* * * DATE OF EXAM: Dec 10 2023 2:47PM BC 5216 - XR LEG FRONTL HIP-ANKL MECH AXIS / PROCEDURE REASON: multiple diagnoses * * * * Physician Interpretation * * * * EXAM(s): XR LEG FRONTL HIP-ANKL MECH AXIS EXAM DATE/TIME: 12/10/2023 2:47 PM HISTORY: 73 years old Clinical information: Bilateral hip pain Bilateral hip pain bilateral hip pain TECHNIQUE: Images: XR LEG FRONTL HIP-ANKL MECH AXIS Comparison: None. EXAM: XR LEG FRONTAL SCANOGRAM LENGTHS, XR LEG FRONTL HIP-ANKL MECH AXIS RESULT: Findings: Mild bony demineralization AP view of the full lengths of the bilateral lower extremities was obtained with cm ruler markings. Measurements will be obtained by the ordering service. No fractures or dislocations are seen. IMPRESSION: Findings as discussed in results portion of report Manager Flight: HELADIO Transcribe Date/Time: Dec 15 2023 8:24A Dictated by : TWYLA HANSEN DO This examination was interpreted and the report reviewed and electronically signed by: TWYLA HANSEN DO on Dec 15 2023 8:24AM EST [id number] [facility] DESTINEY OCAMPO ([id number]) 1950 M Date Time Provider Department 12/05/23 BREONNA POLK During your visit today, we recorded the following information about you: Liliane Linares LPN 12/05/2023 11:40 AM Signed Spoke to patient, they will arrive early for XR's prior to his appointment with TOREY Williamson. Allergies As of Date: 12/05/2023 Noted Allergy Reaction LISINOPRIL 08/25/2012 3 - Cough Date Reviewed: 10/15/2023 Reviewed by: Lon Garcia APRN.CNP - Fully Assessed Reason for Visit: Appointment Confirmation [[id number]] Prescriptions as of 12/05/2023 - ketoconazole (NIZORAL) 2 % cream Apply 1 application to affected area two times a day. Continue for 1 week after rash resolves. - metFORMIN ER (GLUCOPHAGE XR) 500 mg 24 hr tablet Take 1 tablet by mouth daily with breakfast. - metoprolol succinate ER (TOPROL XL) 25 mg 24 hr tablet Take 1 tablet by mouth once daily. - omeprazole (PRILOSEC) 20 mg capsule Take 1 capsule by mouth two times a day. - traZODone (DESYREL) 50 mg tablet Take 0.5-1 tablets by mouth at bedtime as needed (sedation). - nystatin (MYCOSTATIN) powder Apply 1 application to affected area four times daily. Continue to use for a week after rash resolves. Use as needed for recurrences - ENTRESTO 49-51 mg tablet Take 1 tablet by mouth two times a day. (getting from patient assistance) - famotidine (PEPCID) 20 mg tablet Take 1 tablet by mouth at bedtime as needed. - venlafaxine ER (EFFEXOR XR) 75 mg 24 hr capsule Take 1 capsule by mouth daily at bedtime. - Magnesium 250 mg tab Take 1 tablet by mouth two times a day. - Cholecalciferol, Vitamin D3, 50 mcg (2,000 unit) cap Take 1 capsule by mouth once daily. - atorvastatin (LIPITOR) 40 mg tablet TAKE 1 TABLET BY MOUTH EVERY DAY FOR 90 DAYS - aspirin 81 mg chewable tablet Take 81 mg by mouth. - COMPOUNDED PRESCRIPTION Generic Glucometer - I each 50 strips and lancets. Re: Diabetes mellitus controlled with hypoglycemia. - Lancets lancets Test blood sugar(s) 1-2 times daily or as directed. Dx: Type 2 DM - Controlled E11.9 Insulin: No - blood sugar diagnostic (BLOOD GLUCOSE TEST) test strip Test blood sugar(s) 1-2 times daily or as directed. Dx: Type 2 DM - Controlled E11.9 Insulin: No - Blood-Glucose Meter monitoring kit Glucose Meter of Choice (per insurance coverage)- Kit - Dx: Type 2 DM - Controlled E11.9, Test 1-2 times a day or as directed. No insulin - DOCUSATE CALCIUM (STOOL SOFTENER ORAL) Take by mouth as needed. Problem List As Of Date 12/05/2023 Noted Resolved PURE HYPERCHOLESTEROLEM [E78.00] DIVERTICULOSIS OF COLON W/O BLEED [K57.30] Dysthymic disorder [F34.1] 01/03/2021 PAIN HIP JOINT [M25.559] 01/17/2006 DEPRESSION RECURRENT( Moderate) [F33.1] 01/17/2006 05/22/2023 SOMNOLENCE [R40.4] 01/17/2006 01/03/2021 Headache(784.0) [R51] 01/17/2006 11/21/2014 Abdominal pain, other specified site [R10.9] 12/17/2006 11/21/2014 HIATAL HERNIA [K44.9] 04/24/2007 GASTRITIS ANTRAL( W/O Hemorrhage) [K29.60] 04/24/2007 11/21/2014 ESOPHAGITIS REFLUX [K21.00] 04/24/2007 HEMORRHOIDS INTERNAL [K64.8] 04/24/2007 11/21/2014 ACUTE GASTRITIS W/O HEMORRHAGE [K29.00] 04/24/2007 BENIGN NEOPLASM LG BOWEL [D12.6] 04/24/2007 Hypertension [I10] 07/24/2011 Trigger middle finger of right hand [M65.331] 08/29/2011 01/03/2021 Trigger index finger of right hand [M65.321] 08/29/2011 07/16/2016 Diabetes mellitus type 2, controlled, without c*08/15/2014 Neck pain [M54.2] 08/16/2014 Cervical radiculopathy [M54.12] 08/16/2014 Midline thoracic back pain [M54.6] 09/01/2014 Neck pain on left side [M54.2] 09/01/2014 01/03/2021 Numbness and tingling of right upper extremity *09/01/2014 Numbness and tingling in left upper extremity [*09/01/2014 Cervical spondylosis without myelopathy [M47.81*09/01/2014 Benign non-nodular prostatic hyperplasia with l*11/21/2014 Shoulder arthritis [M19.019] 10/05/2015 Prostate cancer (HCC) [C61] 01/16/2017 Pulmonary nodule/lesion, solitary [R91.1] 01/16/2017 RAJI (obstructive sleep apnea) AHI 39 [G47.33] 06/15/2017 Malaise and fatigue [R53.81, R53.83] 06/18/2017 01/03/2021 Complaints of memory disturbance [R41.3] 06/18/2017 H/O concussion [Z87.820] 06/18/2017 08/26/2019 Abnormal x-ray [R93.89] 11/20/2021 Chronic fatigue [R53.82] 05/22/2023 Headaches [R51.9] 05/22/2023 Diplopia [H53.2] 05/22/2023 Encounter Status:Closed by LILIANE LINARES on 12/05/23 Normal [facility] CNPNon 12-01-2023 CNPN Telephone (INTMWS) DESTINEY OCAMPO ([id number]) 1950 M Date Time Provider Department 12/01/23 KEREN ARCE INTMWS During your visit today, we recorded the following information about you: Margot Carter LPN 12/01/2023 12:36 PM Signed Patient Pat calling asking for referral for Neurology. She said he saw Dr Enriquez in [place] and had MRI Brain done, was told he did not need surgery needs to see Neurology. Asked to have copy of results faxed to PCP office, so PCP has results. Pending consult, needs diagnosis. Please advise Keren Arce MD 12/01/2023 7:34 PM Signed Clarify reason/diagnosis for referral to neurology. Cannot find records for Dr. Enriquez evaluation, or MRI results. No mention of neurologic concern in Lon's progress note from September. Leena Wright RN 12/02/2023 3:26 PM Signed Pts called and is notified of providers message and instructions. She voices understanding. She reports she called Dr Enriquez's office yesterday and they were going to fax over the CT to Dr Arce. She gave the phone # for Dr Enriquez [phone]. CHRISTOPH Barrett Kim E, LPN 12/03/2023 1:[address] received and has been scanned into EPIC. Please review WENDY Fragoso Rosa, APRN.LEISURE TRAVEL AGENT 12/03/2023 2:10 PM Signed It looks like the CT was for double vision and headaches. I placed a neuro referral for this. Please see if they want to stick with [facility] where CT was done or with [facility] for the neurology referral. Argelia Hill LPN 12/03/2023 4:09 PM Signed PATIENT notified and will speak with about keeping Neurology appointment with Trenton Motley. Patient may call back to get an appointment with [facility] here the [facility]. We will await call back. WENDY Fragoso Krystle, RN 12/04/2023 9:07 AM Signed Spouse returns call and requests referral be sent to [facility]. Faxed per request to [phone]. Spouse reports if that doesn't work then they will look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 4.3-5.6 [facility] Comment on above: Order Comment: Joanna yoo Type: BLOOD SPECIMENOrdering Facility: [facility] Address: [address] [place] [address] Result Comment: [place] Diabetes Association guidelines indicate that patients with HgbA1c in the range 5.7-6.4% are at increased risk for development of diabetes, and intervention by lifestyle modification may be beneficial. HgbA1c greater or equal to 6.5% is considered diagnostic of diabetes. Performed By: #### 5 5454-3 ####[facility] LABCLIA [id number] [address] [place] Lipid 1996 panelon 4 Cholesterol [Mass/Vol] 136 mg/dL Normal <200 [facility] Comment on above: Order Comment: Joanna yoo Type: BLOOD SPECIMENOrdering Facility: [facility] Address: [address] [place] [address] Result Comment: <200 mg/dL, Desirable 200-239 mg/dL, Borderline high >239 mg/dL, High Performed By: #### 2 4331-1 ####[facility] LABCLIA [id number] [place] [address] [place] [facility] [id number] [place] [address] [place] Cholesterol in HDL [Mass/Vol] 35 mg/dL Low >39 [facility] Comment on above: Order Comment: Joanna yoo Type: BLOOD SPECIMENOrdering Facility: [facility] Address: [address] [place] [address] Result Comment: 40-5 9 mg/dL, Acceptable >59 mg/dL, High: Negative risk factor for coronary heart disease <40 mg/dL, Low: Positive risk factor for coronary heart disease Performed By: #### 2 4331-1 ####[facility] LABCLIA [id number] [address] [id number] [address] Cholesterol in LDL [Mass/Vol] 83 mg/dL Normal <100 [facility] Comment on above: Order Comment: Joanna yoo Type: BLOOD SPECIMENOrdering Facility: [facility] Address: [address] [place] [address] Result Comment: <100 mg/dL, Optimal 100-129 mg/dL, Near optimal/above optimal 130-159 mg/dL, Borderline high 160-189 mg/dL, High >189 mg/dL, Very high Secondary prevention optimal LDL Cholesterol levels are recommended to be < 70 mg/dL Performed By: #### 2 4331-1 ####[facility] LABCLIA [id number] [address] [id number] [address] [place] Cholesterol in LDL/Cholesterol in HDL [Mass ratio] 2.37 {ratio} Normal <2.54 [facility] Comment on above: Order Comment: Joanna men Type: BLOOD SPECIMENOrdering Facility: [facility] Address: [address] [place] [address] Result Comment: Refe lince: 1. National Cholesterol Education Program ATP III Guideline At-A-Glance Quick Desk Reference: National Heart, Lung, and Blood [place]. National Institutes of Health. 2001: NIH Publication No. 01-3305. 2. An International Atherosclerosis Society position paper: global recommendations for the management of dyslipidemia: executive summary, Atherosclerosis. 2014: 232(2):410-413. Performed By: #### 2 4331-1 ####[facility] LABCLIA [id number] [address] [id number] [place] [address] [place] Cholesterol in VLDL [Mass/Vol] 18 mg/dL Normal <30 [facility] Comment on above: Order Comment: Speci men Type: BLOOD SPECIMENOrdering Facility: [facility] Address: [address] [place] [address] Performed By: #### 2 4331-1 ####[facility] LABCLIA [id number] [address] [id number] [place] [address] [place] Cholesterol non HDL [Mass/Vol] 101 mg/dL Normal <130 [facility] Comment on above: Order Comment: Joanna yoo Type: BLOOD SPECIMENOrdering Facility: [facility] Address: [address] [place] [address] Result Comment: <130 mg/dL, Optimal 130-159 mg/dL, Near optimal/above optimal 160-189 mg/dL, Borderline high 190-219 mg/dL, High >219 mg/dL, Very high Secondary prevention optimal non HDL Cholesterol levels are recommended to be <100 mg/dL Performed By: #### 2 4331-1 ####[facility] LABCLIA [id number] [address] [id number] [place] [address] [place] Cholesterol.total/Cho lesterol in HDL [Mass ratio] 3.89 {ratio} Normal <5.10 [facility] Comment on above: Order Comment: Speci men Type: BLOOD SPECIMENOrdering Facility: [facility] Address: [address] [place] [address] Performed By: #### 2 4331-1 ####[facility] LABCLIA [id number] [address] [id number] [place] [address] [place] FASTING TIME 12 hrs Normal [facility] Comment on above: Order Comment: Speci men Type: BLOOD SPECIMENOrdering Facility: [facility] Address: [address] [place] [address] Performed By: #### 2 4331-1 ####[facility] LABCLIA [id number] [address] [id number] [place] [address] [place] Triglyceride [Mass/Vol] 92 mg/dL Normal <150 [facility] Comment on above: Order Comment: Speci men Type: BLOOD SPECIMENOrdering Facility: [facility] Address: [address] [place] [address] Result Comment: <150 mg/dL, Normal 150-199 mg/dL, Borderline high 200-499 mg/dL, High >499 mg/dL, Very high Performed By: #### 2 4331-1 ####[facility] LABCLIA [id number] [address] [id number] [place] [address] [place] Magnesium SerPl-mCncon 10-06 Magnesium [Mass/Vol] 1.7 mg/dL Normal 1.7-2.3 [facility] Comment on above: Order Comment: Speci men Type: BLOOD SPECIMENOrdering Facility: [facility] Address: [address] [place] [address] Performed By: #### 1 9123-9, 96999-4 ####[facility] AYSHA HUYNH [id number] [place] [address] [place] Renee 10-02-2023 [facility] DESTINEY OCAMPO ([id number]) 1950 M Date Time Provider Department 10/02/23 [facility] During your visit today, we recorded the following information about you: Veena Albert LPN 10/02/2023 8:57 AM Signed Pt's calling checking to see if pt has labs ordered. Advised pt does have fasting lab orders. Veena Albert LPN Allergies As of Date: 10/02/2023 Noted Allergy Reaction LISINOPRIL 08/25/2012 3 - Cough Date Reviewed: 05/07/2023 Reviewed by: Siomara Villatoro LPN - Fully Assessed Reason for Visit: Patient Question [1337] Prescriptions as of 10/02/2023 - ketoconazole (NIZORAL) 2 % cream Apply 1 application to affected area two times a day. Continue for 1 week after rash resolves. - traZODone (DESYREL) 50 mg tablet Take 0.5-1 tablets by mouth at bedtime as needed (sedation). - nystatin (MYCOSTATIN) powder Apply 1 application to affected area four times daily. Continue to use for a week after rash resolves. Use as needed for recurrences - metFORMIN ER (GLUCOPHAGE XR) 500 mg 24 hr tablet Take 1 tablet by mouth two times a day. - ENTRESTO 49-51 mg tablet Take 1 tablet by mouth two times a day. (getting from patient assistance) - famotidine (PEPCID) 20 mg tablet Take 1 tablet by mouth at bedtime as needed. - venlafaxine ER (EFFEXOR XR) 75 mg 24 hr capsule Take 1 capsule by mouth daily at bedtime. - Magnesium 250 mg tab Take 1 tablet by mouth two times a day. - omeprazole (PRILOSEC) 20 mg capsule Take 1 capsule by mouth twice daily. - metoprolol succinate ER (TOPROL XL) 25 mg 24 hr tablet Take 1 tablet by mouth once daily. - Cholecalciferol, Vitamin D3, 50 mcg (2,000 unit) cap Take 1 capsule by mouth once daily. - atorvastatin (LIPITOR) 40 mg tablet TAKE 1 TABLET BY MOUTH EVERY DAY FOR 90 DAYS - aspirin 81 mg chewable tablet Take 81 mg by mouth. - COMPOUNDED PRESCRIPTION Generic Glucometer - I each 50 strips and lancets. Re: Diabetes mellitus controlled with hypoglycemia. - Lancets lancets Test blood sugar(s) 1-2 times daily or as directed. Dx: Type 2 DM - Controlled E11.9 Insulin: No - blood sugar diagnostic (BLOOD GLUCOSE TEST) test strip Test blood sugar(s) 1-2 times daily or as directed. Dx: Type 2 DM - Controlled E11.9 Insulin: No - Blood-Glucose Meter monitoring kit Glucose Meter of Choice (per insurance coverage)- Kit - Dx: Type 2 DM - Controlled E11.9, Test 1-2 times a day or as directed. No insulin - DOCUSATE CALCIUM (STOOL SOFTENER ORAL) Take by mouth as needed. Problem List As Of Date 10/02/2023 Noted Resolved PURE HYPERCHOLESTEROLEM [E78.00] DIVERTICULOSIS OF COLON W/O BLEED [K57.30] Dysthymic disorder [F34.1] 01/03/2021 PAIN HIP JOINT [M25.559] 01/17/2006 DEPRESSION RECURRENT( Moderate) [F33.1] 01/17/2006 05/22/2023 SOMNOLENCE [R40.4] 01/17/2006 01/03/2021 Headache(784.0) [R51] 01/17/2006 11/21/2014 Abdominal pain, other specified site [R10.9] 12/17/2006 11/21/2014 HIATAL HERNIA [K44.9] 04/24/2007 GASTRITIS ANTRAL( W/O Hemorrhage) [K29.60] 04/24/2007 11/21/2014 ESOPHAGITIS REFLUX [K21.00] 04/24/2007 HEMORRHOIDS INTERNAL [K64.8] 04/24/2007 11/21/2014 ACUTE GASTRITIS W/O HEMORRHAGE [K29.00] 04/24/2007 BENIGN NEOPLASM LG BOWEL [D12.6] 04/24/2007 Hypertension [I10] 07/24/2011 Trigger middle finger of right hand [M65.331] 08/29/2011 01/03/2021 Trigger index finger of right hand [M65.321] 08/29/2011 07/16/2016 Diabetes mellitus type 2, controlled, without c*08/15/2014 Neck pain [M54.2] 08/16/2014 Cervical radiculopathy [M54.12] 08/16/2014 Midline thoracic back pain [M54.6] 09/01/2014 Neck pain on left side [M54.2] 09/01/2014 01/03/2021 Numbness and tingling of right upper extremity *09/01/2014 Numbness and tingling in left upper extremity [*09/01/2014 Cervical spondylosis without myelopathy [M47.81*09/01/2014 Benign non-nodular prostatic hyperplasia with l*11/21/2014 Shoulder arthritis [M19.019] 10/05/2015 Prostate cancer (HCC) [C61] 01/16/2017 Pulmonary nodule/lesion, solitary [R91.1] 01/16/2017 RAJI (obstructive sleep apnea) AHI 39 [G47.33] 06/15/2017 Malaise and fatigue [R53.81, R53.83] 06/18/2017 01/03/2021 Complaints of memory disturbance [R41.3] 06/18/2017 H/O concussion [Z87.820] 06/18/2017 08/26/2019 Abnormal x-ray [R93.89] 11/20/2021 Chronic fatigue [R53.82] 05/22/2023 Headaches [R51.9] 05/22/2023 Diplopia [H53.2] 05/22/2023 Encounter Status:Closed by VEENA ALBERT on 10/02/23 Normal [facility] CNPNon 07-04-2023 [facility] (INTMWS) TERRENCEDESTINEY Keegan ([id number]) 1950 M Date Time Provider Department 07/04/23 KEREN ARCE INTMWS During your visit today, we recorded the following information about you: Leilani Mathis RN 07/04/2023 8:46 AM Signed Patient's calls and states that patient has been having issues with fatigue and muscle/joint pain. Patient has been having issues with shortness of with exertion. Patient's states that these issues have been going on for quite some time. asking if Metformin can be causing these issues? states that patient has not been able to do anything do to not feeling well. states that Dr. Arce as seen patient for these issues previously. states that metformin was changed previously to another medication however that medication did not help control blood sugars. Please review and advise, CHRISTOPH Calle Liza D, MD 07/04/2023 1:12 PM Signed Short of breath with exertion not a typical side effect of metformin. Fatigue and joint pain not a common side effect of metformin. Last year was when metformin was switched because of complaints of fatigue, but had problems with the other med so went back to metformin and at July appointment told Lon that fatigue was improved. No mention of SOB with exertion at that July appointment. No mention of WOODRUFF at April appointment for rash. Hemoglobin A1C (%) Date Value 04/07/2023 6.7 09/26/2022 6.5 03/26/2022 7.2 08/02/2021 7.1 10/11/2020 7.5 02/11/2018 6.2 09/04/2017 6.2 05/09/2017 6.9 01/07/2017 6.0 Hemoglobin A1C (POCT) (%) Date Value 06/26/2020 7.0 02/24/2019 7.1 11/19/2018 7.4 Since sugars have been good, if he wants to hold the metformin for a couple weeks and see if symptoms improve. Let me know if sugars get high over 200s. 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 If prefers to start with us, make sooner appointment with me or Rashid Claudio. Carolyn García LPN 07/04/2023 1:33 PM Signed Patient and aware of provider recommendations. Patient to stop Metformin on 07/05/2023 and will update PCP within 2 weeks. Patient's asking about the lactic acid levels, if off, would cause these symptoms. WENDY Samayoa Liza D, MD 07/04/2023 6:45 PM Signed Lactic acidosis not likely to be an issue unless he has problems with acute illness and dehydration (remind them the stop metformin anything not able to eat and drink adequately). Lactic acidosis could be associated with illness that cause the lactic acid to go up (like sepsis from infection) which can cause symptoms of fatigue and pain. Desiree Orlando LPN 07/07/2023 10:32 AM Signed PATIENT NOTIFIED OF SAME. He did stop the Metformin about 2 days ago but hasn't noticed any difference in the fatigue. Did encourage patient to continue to check daily BS. To resume metformin if having elevated readings and no improvement in fatigue symptoms in the next week or two. Keren Arce MD 07/07/2023 8:37 PM Signed Noted Follow up as needed if fatigue not improving. Allergies As of Date: 07/04/2023 Noted Allergy Reaction LISINOPRIL 08/25/2012 3 - Cough Date Reviewed: 05/07/2023 Reviewed by: Siomara Villatoro LPN - Fully Assessed Reason for Visit: Patient Update [1234] Prescriptions as of 07/07/2023 - traZODone (DESYREL) 50 mg tablet Take 0.5-1 tablets by mouth at bedtime as needed (sedation). - nystatin (MYCOSTATIN) powder Apply 1 application to affected area four times daily. Continue to use for a week after rash resolves. Use as needed for recurrences - ketoconazole (NIZORAL) 2 % cream Apply 1 application to affected area two times a day. Continue for 1 week after rash resolves. - metFORMIN ER (GLUCOPHAGE XR) 500 mg 24 hr tablet Take 1 tablet by mouth two times a day. - ENTRESTO 49-51 mg tablet Take 1 tablet by mouth two times a day. (getting from patient assistance) - famotidine (PEPCID) 20 mg tablet Take 1 tablet by mouth at bedtime as needed. - venlafaxine ER (EFFEXOR XR) 75 mg 24 hr capsule Take 1 capsule by mouth daily at bedtime. - Magnesium 250 mg tab Take 1 tablet by mouth two times a day. - omeprazole (PRILOSEC) 20 mg capsule Take 1 capsule by mouth twice daily. - metoprolol succinate ER (TOPROL XL) 25 mg 24 hr tablet Take 1 tablet by mouth once daily. - Cholecalciferol, Vitamin D3, 50 mcg (2,000 unit) cap Take 1 capsule by mouth once daily. - atorvastatin (LIPITOR) 40 mg tablet TAKE 1 TABLET BY MOUTH EVERY DAY FOR 90 DAYS - aspirin 81 mg chewable tablet Take 81 mg by mouth. - COMPOUNDED PRESCRIPTION Generic Glucometer - I each 50 strips and lancets. Re: Diabetes mellitus controlled with hypoglycemia. - Lancets lancets Test blood sugar(s) 1-2 times daily or as d (more content not included)... Normal [facility] CT ANGIOGRAPHY HEAD W/ CONTR Francisca 06-20-2023 CT ANGIOGRAPHY HEAD W/ CONTRAST ORIGINAL EXAMINATION: CT Angiogram of the head with intravenous contrast TECHNIQUE: CT angiogram of the head was obtained. Sagittal and coronal reformations and maximum intensity projection reconstructions were provided. Images were obtained before and after the uneventful administration of intravenous contrast. 3D reformatted MIP images were provided One or more of the following dose reduction techniques were used: automated exposure control, adjustment of the mA and/or kV according to patient size, or use of iterative reconstruction technique. DICOM images are available. COMPARISON: Same day noncontrast CT head HISTORY: ORDERING SYSTEM PROVIDED HISTORY: Reason for Exam: Double vision, Dizziness, Headaches FINDINGS: Cerebral angiogram Aneurysm: No aneurysm identified. Anterior circulation: Internal carotid arteries:Mild atherosclerotic calcifications of the right internal carotid siphon without a hemodynamically significant stenosis. Ophthalmic arteries:The bilateral proximal ophthalmic arteries are patent. Anterior cerebral arteries:No flow-limiting stenosis. Hypoplastic right A1 anterior cerebral artery. Middle cerebral arteries:No flow-limiting stenosis. Posterior cerebral arteries:No significant flow-limiting stenosis. Anterior communicating artery:Present. Posterior communicating arteries:Bilaterally hypoplastic or aplastic. Posterior circulation: Basilar artery:No flow-limiting stenosis SCA: Bilaterally patent. AICA: Bilaterally patent. PICA: Bilaterally patent. V3/V4 vertebral arteries:No significant flow-limiting stenosis. Dural venous sinuses:Patent. IMPRESSION: 1. No flow-limiting stenosis or aneurysm. 2. Mild atherosclerotic calcifications of the right internal carotid siphon without a hemodynamically significant stenosis. Interpreted by: Destiney William MD Preliminary Report By: Destiney William MD Electronically signed By Destiney William MD Dictated Date: 06/20/2023 4:49:29 PM Prelim Date: 06/20/2023 5:15:31 PM Sign Date: 06/20/2023 5:15:31 PM Ordering Provider: ASHTYNZEKE TAN [facility]) CT HEAD OR BRAIN W/O CONTRAS Ton 06-20-2023 CT HEAD OR BRAIN W/O CONTRAST ORIGINAL EXAMINATION: CT OF THE HEAD WITHOUT CONTRAST 06/18/2023 1:22 pm TECHNIQUE: CT of the head was performed without the administration of intravenous contrast. Automated exposure control, iterative reconstruction, and/or weight based adjustment of the mA/kV was utilized to reduce the radiation dose to as low as reasonably achievable. COMPARISON: None. HISTORY: ORDERING SYSTEM PROVIDED HISTORY: Reason for Exam: Double vision, Dizziness, Headaches FINDINGS: No acute intracranial hemorrhage, hydrocephalus, or mass effect. The ventricles are mildly enlarged with commensurate enlargement of the sulci most consistent with mild age-related volume loss. Scattered white matter hypodensities are nonspecific but may represent mild chronic microvascular angiopathy in a patient of this age. Atherosclerotic calcifications are present in the cavernous carotid arteries. Included paranasal sinuses and mastoid air cells are predominantly clear. No acute calvarial abnormality. IMPRESSION: No acute intracranial abnormality. Interpreted by: Ana Rosa Randall MD Preliminary Report By: Ana Rosa Randall MD Electronically signed By Ana Rosa Randall MD Dictated Date: 06/20/2023 4:42:30 PM Prelim Date: 06/20/2023 4:45:03 PM Sign Date: 06/20/2023 4:45:03 PM Ordering Provider: ASHTYN TAN [facility] ([place]) .GFRon 06-18-2023 GFR Non- 94 ml/min/1.73sqm Normal [facility] ([place]) Comment on above: Result Comment: GFR Population mean for , Non- Americans Ages 20-29 = 116 mL/min/1.73 sq.m. Ages 30-39 = 107 mL/min/1.73 sq.m. Ages 40-49 = 99 mL/min/1.73 sq.m. Ages 50-59 = 93 mL/min/1.73 sq.m. Ages 60-69 = 85 mL/min/1.73 sq.m. Ages 70+ = 75 mL/min/1.73 sq.m. Chronic Kidney Disease: Less than 60 mL/min/1.73 square meters End Stage Renal Disease: Less than 15 mL/min/1.73 square meters Performed By: #### C RE, GFR #### [address] [address] GFR 114 ml/min/1.73sqm Normal [facility] ([place]) Comment on above: Result Comment: GFR Population mean for , Non- Americans Ages 20-29 = 116 mL/min/1.73 sq.m. Ages 30-39 = 107 mL/min/1.73 sq.m. Ages 40-49 = 99 mL/min/1.73 sq.m. Ages 50-59 = 93 mL/min/1.73 sq.m. Ages 60-69 = 85 mL/min/1.73 sq.m. Ages 70+ = 75 mL/min/1.73 sq.m. Chronic Kidney Disease: Less than 60 mL/min/1.73 square meters End Stage Renal Disease: Less than 15 mL/min/1.73 square meters Performed By: #### C RE, GFR #### [place] [address] [address] CREon 06-18-2023 Creatinine [Mass/Vol] 0.81 mg/dL Normal 0.70-1.30 [facility] ([place]) Comment on above: Performed By: #### C RE, GFR #### [address] [address] LABORATORYOrdered By: SYSTEM SYSTEM on 06-18-2023 Creatinine [Mass/Vol] 0.81 mg/dL Normal 0.70 - 1.30 mg/dL AO ADM SS GFR/1.73 sq M.predicted among blacks MDRD (S/P/Bld) [Vol rate/Area] 114 ml/min/1.73sqm Invalid Interpretation Code AO Chemistry S Comment on above: Interpretive Data: GFR Population mean for , Non- Americans Ages 20-29 = 116 mL/min/1.73 sq.m. Ages 30-39 = 107 mL/min/1.73 sq.m. Ages 40-49 = 99 mL/min/1.73 sq.m. Ages 50-59 = 93 mL/min/1.73 sq.m. Ages 60-69 = 85 mL/min/1.73 sq.m. Ages 70+ = 75 mL/min/1.73 sq.m. Chronic Kidney Disease: Less than 60 mL/min/1.73 square meters End Stage Renal Disease: Less than 15 mL/min/1.73 square meters GFR/1.73 sq M.predicted among non-blacks MDRD (S/P/Bld) [Vol rate/Area] 94 ml/min/1.73sqm Invalid Interpretation Code AO Chemistry S Comment on above: Interpretive Data: GFR Population mean for , Non- Americans Ages 20-29 = 116 mL/min/1.73 sq.m. Ages 30-39 = 107 mL/min/1.73 sq.m. Ages 40-49 = 99 mL/min/1.73 sq.m. Ages 50-59 = 93 mL/min/1.73 sq.m. Ages 60-69 = 85 mL/min/1.73 sq.m. Ages 70+ = 75 mL/min/1.73 sq.m. Chronic Kidney Disease: Less than 60 mL/min/1.73 square meters End Stage Renal Disease: Less than 15 mL/min/1.73 square meters Glucose Glucometer (BldC) [M ass/Vol]Ordered By: Emery Ramirez on 11-13-2022 Glucose [Mass/Vol] 118 mg/dL 74-106 [facility] Comment on above: MANAGEMENT OF PATIEN T CARE PER NURSING PROTOCOL Basophil percentageOrdered B y: Prashanth Mullen on 10-31-2022 Bilirubin [Mass/Vol] 0.80 mg/dL 0.20-1.00 [facility] Comment on above: For patients on eltr ombopag therapy, use of Dimension [place] TBIL is not recommended. Chloride [Moles/Vol] 105 mmol/L 98-107 [facility] Glucose [Mass/Vol] 136 mg/dL 74-106 [facility] Comment on above: Fasting Glucose resu lt greater than or equal to 126 mg/dL suggests DIABETES MELLITUS per A.D.A. criteria. Potassium [Moles/Vol] 4.5 mmol/L 3.5-5.1 [facility] Protein [Mass/Vol] 7.1 g/dL 6.4-8.2 [facility] Sodium [Moles/Vol] 137 mmol/L 136-145 [facility] WBC (Bld) [#/Vol] 9.4 10*3/uL 4.4-11.0 [facility] Blood erythrocytes count (nu mber/volume)Ordered By: Prashanth Mullen on 10-31-2022 RBC (Bld) [#/Vol] 5.22 10*6/uL 4.6-6.2 [facility] Blood hemoglobin measurement (mass/volume)Ordered By: Prashanth Mullen on 10-31-2022 Hemoglobin (Bld) [Mass/Vol] 14.6 g/dL 13.0-16.5 [facility] Blood platelet mean volumeOr dered By: Prashanth Mullen on 10-31-2022 Platelet mean volume (Bld) [Entitic vol] 11.8 fL 6.2-12.0 [facility] Determination of erythrocyte mean corpuscular volume (MCV)Ordered By: Prashanth Mullen on 10-31-2022 MCV (RBC) [Entitic vol] 90.0 fL 80-94 [facility] Direct bilirubinOrdered By: Prashanth Mullen on 10-31-2022 Bilirubin.direct [Mass/Vol] 0.21 mg/dL 0.00-0.30 [facility] Hematocrit Auto (Bld) [Volum e fraction]Ordered By: Prashanth Mullen on 10-31-2022 Hematocrit (Bld) [Volume fraction] 47.0 % 40-54 [facility] INR in Blood by Coagulation assayOrdered By: Prashanth Mullen on 10-31-2022 INR Coag (Bld) [Relative time] 1.0 {INR} [facility] Laboratory - Chemistry and C hemistry - challengeOrdered By: Prashanth Mullen on 10-31-2022 ALP [Catalytic activity/Vol] 94 U/L 45-117 [facility] ALT [Catalytic activity/Vol] 20 U/L 16-61 [facility] CO2 [Moles/Vol] 31.0 mmol/L 21.0-32.0 [facility] Globulin (S) [Mass/Vol] 3.4 g/dL 2.2-4.2 [facility] Urea nitrogen/Creatinine [Mass ratio] 16.9 mg/mg 10-20 [facility] Laboratory - CoagulationOrde red By: Prashanth Mullen on 10-31-2022 aPTT Coag (Bld) [Time] 27.6 s 24.1-36.2 [facility] PT Coag (PPP) [Time] 12.9 s 11.7-14.9 [facility] Laboratory - Hematology and Cell countsOrdered By: Prashanth Mullen on 10-31-2022 Erythrocyte distribution width (RBC) [Entitic vol] 39.8 fL 35.1-43.9 [facility] Erythrocyte distribution width (RBC) [Ratio] 12.3 % 11.6-14.6 [facility] MCH (RBC) [Entitic mass] 28.0 pg 27.0-32.0 [facility] MCHC Auto (RBC) [Mass/Vol]Or dered By: Prashanth Mullen on 10-31-2022 MCHC (RBC) [Mass/Vol] 31.1 g/dL 32-36 [facility] No Panel InformationOrdered By: Prashanth Mullen on 10-31-2022 Estimated GFR (MDRD) Amer 128 mL/min >60 [facility] Comment on above: GFR Calc Estimated GFR (MDRD) Non-Af Amer 106 mL/min >60 [facility] Comment on above: Non- GFR Calc Platelets bldOrdered By: Lani Mullen on 10-31-2022 Platelets (Bld) [#/Vol] 171 10*3/uL 150-450 [facility] Serum or plasma albumin verónica urement (mass/volume)Ordered By: Prashanth Mullen on 10-31-2022 Albumin [Mass/Vol] 3.7 g/dL 3.2-5.0 [facility] Serum or plasma calcium verónica urement (mass/volume)Ordered By: Prashanth Mullen on 10-31-2022 Calcium [Mass/Vol] 9.1 mg/dL 8.5-10.1 [facility] Serum or plasma creatinine m easurement (mass/volume)Ordered By: Prashanth Mullen on 10-31-2022 Creatinine [Mass/Vol] 0.77 mg/dL 0.70-1.30 [facility] Comment on above: The validity of the calculated GFR & GFRAA in patients over 70 years has not been determined. Clinical correlation is essential. Serum or plasma urea nitroge n measurement (mass/volume)Ordered By: Prashanth Mullen on 10-31-2022 Urea nitrogen [Mass/Vol] 13 mg/dL 7-18 [facility] Thin prep Papanicolaou smear with manual screeningOrdered By: Prashanth Mullen on 10-31-2022 Thin prep Papanicolaou smear with manual screening 13 U/L 15- [facility] Thin prep Papanicolaou smear with manual screening 1 5-15 [facility] Whole blood hemoglobin A1c/t otal hemoglobin ratio (mass fraction)Ordered By: Prashanth Mullen on 10-31-2022 HbA1c (Bld) [Mass fraction] 6.8 % 3.8-5.6 [facility] Comment on above: Normal < 5.7 % Predi abetic 5.7 - 6.4 % Diabetic >or= 6.5 % Please note range changes. No Panel InformationOrdered By: Fuentes Youssef on 10-08-2022 Prostate Specific Antigen Total 0.04 ng/mL 0.0-4.0 [facility] Comment on above: This test was perfor med using the TPSA assay method for the[employer] chemistry system. Values obtained with differentassay methods cannot be used interchangably.When changing PSA assays in the course of monitoring apatient, additional sequential testing should be carriedout to confirm baseline values. No Panel InformationOrdered By: Dr. Youssef on 04-10-2022 Prostate Specific Antigen Screen 0.03 ng/mL 0.00-4.00 [facility] Comment on above: This test was perfor med using the TPSA assay method for [facility]. Values obtained with differentassay methods cannot be used interchangably.When changing PSA assays in the course of monitoring apatient, additional sequential testing should be carriedout to confirm baseline values. Basophil percentageon 2021 Chloride [Moles/Vol] 104 mmol/L 98-107 [facility] Work Phone: [phone] Glucose [Mass/Vol] 113 mg/dL 74-106 [facility] Work Phone: Comment on above: Fasting Glucose resu lt from 100 to 125 mg/dL suggests IMPAIRED HOMEOSTASIS per A.D.A. criteria. Potassium [Moles/Vol] 4.7 mmol/L 3.5-5.1 [facility] Work Phone: [phone] Sodium [Moles/Vol] 139 mmol/L 136-145 [facility] Work Phone: Laboratory - Chemistry and C hemistry - challengeon 06-19-2021 CO2 [Moles/Vol] 29.0 mmol/L 21.0-32.0 [facility] Work Phone: [phone] Urea nitrogen/Creatinine [Mass ratio] 14.3 mg/mg 10-20 [facility] Work Phone: No Panel Informationon 06-19 Estimated GFR (MDRD) Amer 128 mL/min >60 [facility] Work Phone: Comment on above: GFR Calc Estimated GFR (MDRD) Non-Af Amer 106 mL/min >60 [facility] Work Phone: Comment on above: Non- GFR Calc Serum or plasma calcium verónica urement (mass/volume)on 06-19-2021 Calcium [Mass/Vol] 8.9 mg/dL 8.5-10.1 [facility] Work Phone: Serum or plasma creatinine m easurement (mass/volume)on 06-19-2021 Creatinine [Mass/Vol] 0.77 mg/dL 0.70-1.30 [facility] Work Phone: Comment on above: The validity of the calculated GFR & GFRAA in patients over 70 years has not been determined. Clinical correlation is essential. Serum or plasma urea nitroge n measurement (mass/volume)on 06-19-2021 Urea nitrogen [Mass/Vol] 11 mg/dL 7-18 [facility] Work Phone: Thin prep Papanicolaou smear with manual screeningon 06-19-2021 Thin prep Papanicolaou smear with manual screening 6 5-15 [facility] Work Phone: No Panel Informationon 04-04 Prostate Specific Antigen Total < 0.01 ng/mL 0.0-4.0 [facility] Work Phone: Comment on above: This test was perfor med using the TPSA assay method for [employer] chemistry system. Values obtained with differentassay methods cannot be used interchangably.When changing PSA assays in the course of monitoring apatient, additional sequential testing should be carriedout to confirm baseline values. XR HIP BILAT 5V PEL/AP/LAT E ACH HIPon 06-26-2020 IMPRESSION: No acute process is seen. Mild narrowing of the inferior aspect of bilateral hip joints. Manager Flight: HELADIO Transcribe Date/Time: Jun 26 2020 1:12P Dictated by : HAYDER PATEL MD This examination was interpreted and the report reviewed and electronically signed by: HAYDER PATEL MD on Jun 26 2020 1:13PM [facility] DIVISION OF RADIOLOGY * * *Final Report* * * DATE OF EXAM: Jun 26 2020 11:30AM WOX [id number] - XR HIP TALA 5V PEL+ AP/LAT EA HIP / PROCEDURE REASON: Hip pain * * * * Physician Interpretation * * * * History: Hip pain FINDINGS: AP view of the pelvis and AP and lateral views of each hip have been obtained. There is no acute fracture or dislocation. There is mild narrowing of the inferior hip joint bilaterally. No acute process is seen. Remaining joint spaces of the pelvis are maintained. There are no gross soft tissue abnormalities. Mild degenerative change of the included lower lumbar spine noted. DIVISION OF RADIOLOGY Provider, Thalia Danymarshal [facility] - 06/26/2020 * * *Final Report* * * DATE OF EXAM: Jun 26 2020 11:30AM WOX [id number] - XR HIP TALA 5V PEL+ AP/LAT EA HIP / PROCEDURE REASON: Hip pain * * * * Physician Interpretation * * * * History: Hip pain FINDINGS: AP view of the pelvis and AP and lateral views of each hip have been obtained. There is no acute fracture or dislocation. There is mild narrowing of the inferior hip joint bilaterally. No acute process is seen. Remaining joint spaces of the pelvis are maintained. There are no gross soft tissue abnormalities. Mild degenerative change of the included lower lumbar spine noted. IMPRESSION IMPRESSION: No acute process is seen. Mild narrowing of the inferior aspect of bilateral hip joints. Manager Flight: HELADIO Transcribe Date/Time: Jun 26 2020 1:12P Dictated by : HAYDER PATEL MD This examination was interpreted and the report reviewed and electronically signed by: HAYDER PATEL MD on Jun 26 2020 1:13PM EST [facility] Radiology Study observation (narrative) [facility] XR HIP BILAT 5V PEL/AP/LAT E ACH HIPOrdered By: [facility] Provider on 06-26-2020 [facility] XR Chest PA and Lateralon IMPRESSION: No acute radiographic abnormality. Manager Flight: HELADIO Transcribe Date/Time: Dec 02 2019 1:38P Dictated by : LEXII DIAZ MD This examination was interpreted and the report reviewed and electronically signed by: LEXII DIAZ MD on Dec 02 2019 1:38PM [facility] DIVISION OF RADIOLOGY * * *Final Report* * * DATE OF EXAM: Dec 02 2019 11:53AM WOX [id number] - XR CHEST 2V FRONTAL/LAT / PROCEDURE REASON: Wheezing * * * * Physician Interpretation * * * * EXAMINATION: CHEST RADIOGRAPH (2 VIEW FRONTAL & LATERAL) CLINICAL HISTORY: Wheezing MQ: XC2_6 EXAM DATE/TIME: 12/02/2019 11:53 AM COMPARISON: No relevant prior studies available. RESULT: Lines, tubes, and devices: None. Lungs and pleura: No consolidation. No lung mass. No pleural effusion. No pneumothorax. Cardiomediastinal silhouette: Normal cardiomediastinal silhouette. Bones and soft tissues: Degenerative changes are present within the thoracic spine. DIVISION OF RADIOLOGY Provider, Jose tarango [place] - 12/02/2019 * * *Final Report* * * DATE OF EXAM: Dec 02 2019 11:53AM WOX [id number] - XR CHEST 2V FRONTAL/LAT / PROCEDURE REASON: Wheezing * * * * Physician Interpretation * * * * EXAMINATION: CHEST RADIOGRAPH (2 VIEW FRONTAL & LATERAL) CLINICAL HISTORY: Wheezing MQ: XC2_6 EXAM DATE/TIME: 12/02/2019 11:53 AM COMPARISON: No relevant prior studies available. RESULT: Lines, tubes, and devices: None. Lungs and pleura: No consolidation. No lung mass. No pleural effusion. No pneumothorax. Cardiomediastinal silhouette: Normal cardiomediastinal silhouette. Bones and soft tissues: Degenerative changes are present within the thoracic spine. IMPRESSION IMPRESSION: No acute radiographic abnormality. Manager Flight: PSCB Transcribe Date/Time: Dec 02 2019 1:38P Dictated by : LEXII DIAZ MD This examination was interpreted and the report reviewed and electronically signed by: LEXII DIAZ MD on Dec 02 2019 1:38PM EST [facility] Radiology Study observation (narrative) [facility] XR Chest PA and LateralOrder ed By: [facility] Provider on 12-02-2019 [facility] Vital Signs Date Time Vital Sign Value Performing Clinician Facility 05-11-2024 13:33-0400 Body mass index (BMI) [Ratio] 33.09 kg/m2 Rashid Grimes APRN.ELECTRIC LOCOMOTIVE CRANE OPERATOR Work Phone: [facility] 05-11-2024 13:33-0400 Body weight 93 kg Rashid Grimes INTEGRATION MANAGER.ELECTRIC LOCOMOTIVE CRANE OPERATOR Work Phone: [facility] 05-11-2024 13:33-0400 Diastolic blood pressure 71 mm[Hg] Rashid Grimes INTEGRATION MANAGER.ELECTRIC LOCOMOTIVE CRANE OPERATOR Work Phone: [facility] 05-11-2024 13:33-0400 Heart rate 75 /min Rashid Grimes INTEGRATION MANAGER.ELECTRIC LOCOMOTIVE CRANE OPERATOR Work Phone: [facility] 05-11-2024 13:33-0400 Respiratory rate 16 /min Rashid Grimes INTEGRATION MANAGER.ELECTRIC LOCOMOTIVE CRANE OPERATOR Work Phone: [facility] 05-11-2024 13:33-0400 Systolic blood pressure 109 mm[Hg] Rashid Lundbergs INTEGRATION MANAGER.ELECTRIC LOCOMOTIVE CRANE OPERATOR Work Phone: [facility] 04-28-2024 16:06-0400 Body temperature 97.2 [degF] Gwen Fox PT Work Phone: [facility] 04-28-2024 16:06-0400 Diastolic blood pressure 74 mm[Hg] Gwen Maloney-Arcadio PT Work Phone: [facility] 04-28-2024 16:06-0400 Heart rate 82 /min Gwen Fox PT Work Phone: [facility] 04-28-2024 16:06-0400 Respiratory rate 16 /min Gwen Fox PT Work Phone: [facility] 04-28-2024 16:06-0400 SaO2% (BldA) [Mass fraction] 97 % Gwen Fox PT Work Phone: [facility] 04-28-2024 16:06-0400 Systolic blood pressure 118 mm[Hg] Gwen Maloney-Arcadio PT Work Phone: [facility] 04-23-2024 14:16-0500 Body temperature 97.39 [degF] Ashley Dick SPONGE MAKER Work Phone: [facility] 04-23-2024 14:16-0500 Diastolic blood pressure 68 mm[Hg] Ashley Dick SPONGE MAKER Work Phone: [facility] 04-23-2024 14:16-0500 Heart rate 61 /min Ashley Dick SPONGE MAKER Work Phone: [facility] 04-23-2024 14:16-0500 Respiratory rate 18 /min Ashley Dick SPONGE MAKER Work Phone: [facility] 04-23-2024 14:16-0500 SaO2% (BldA) [Mass fraction] 98 % Ashley Dick SPONGE MAKER Work Phone: [facility] 04-23-2024 14:16-0500 Systolic blood pressure 122 mm[Hg] Ashley Dick SPONGE MAKER Work Phone: [facility] 04-21-2024 14:02-0500 Body temperature 97.3 [degF] Ashley Dick SPONGE MAKER Work Phone: [facility] 04-21-2024 14:02-0500 Diastolic blood pressure 78 mm[Hg] Ashley Dick SPONGE MAKER Work Phone: [facility] 04-21-2024 14:02-0500 Heart rate 83 /min Ashley Dick SPONGE MAKER Work Phone: [facility] 04-21-2024 14:02-0500 Respiratory rate 18 /min Ashley Dick SPONGE MAKER Work Phone: [facility] 04-21-2024 14:02-0500 SaO2% (BldA) [Mass fraction] 94 % Ashley Dick SPONGE MAKER Work Phone: [facility] 04-21-2024 14:02-0500 Systolic blood pressure 118 mm[Hg] Ashley Dick SPONGE MAKER Work Phone: [facility] 04-19-2024 13:35-0500 Body temperature 97.5 [degF] Ashley Dick SPONGE MAKER Work Phone: [facility] 04-19-2024 13:35-0500 Diastolic blood pressure 78 mm[Hg] Ashley Dick SPONGE MAKER Work Phone: [facility] 04-19-2024 13:35-0500 Heart rate 74 /min Ashley Dick SPONGE MAKER Work Phone: [facility] 04-19-2024 13:35-0500 Respiratory rate 18 /min Ashley Dick SPONGE MAKER Work Phone: [facility] 04-19-2024 13:35-0500 SaO2% (BldA) [Mass fraction] 96 % Ashley Dick SPONGE MAKER Work Phone: [facility] 04-19-2024 13:35-0500 Systolic blood pressure 124 mm[Hg] Ashley Dick SPONGE MAKER Work Phone: [facility] 04-15-2024 12:58-0500 Body temperature 97.59 [degF] Ashley Dick SPONGE MAKER Work Phone: [facility] 04-15-2024 12:58-0500 Diastolic blood pressure 74 mm[Hg] Ashley Dick SPONGE MAKER Work Phone: [facility] 04-15-2024 12:58-0500 Heart rate 79 /min Ashley Dick SPONGE MAKER Work Phone: [facility] 04-15-2024 12:58-0500 Respiratory rate 18 /min Ashley Dick SPONGE MAKER Work Phone: [facility] 04-15-2024 12:58-0500 SaO2% (BldA) [Mass fraction] 97 % Ashley Dick SPONGE MAKER Work Phone: [facility] 04-15-2024 12:58-0500 Systolic blood pressure 130 mm[Hg] Ashley Dick SPONGE MAKER Work Phone: [facility] 04-13-2024 10:21-0500 Body temperature 97 [degF] Ashley Dick SPONGE MAKER Work Phone: [facility] 04-13-2024 10:21-0500 Diastolic blood pressure 88 mm[Hg] Ashley Dick SPONGE MAKER Work Phone: [facility] 04-13-2024 10:21-0500 Heart rate 76 /min Ashley Dick SPONGE MAKER Work Phone: [facility] 04-13-2024 10:21-0500 Respiratory rate 18 /min Ashley Dick SPONGE MAKER Work Phone: [facility] 04-13-2024 10:21-0500 SaO2% (BldA) [Mass fraction] 99 % Ashley Dick SPONGE MAKER Work Phone: [facility] 04-13-2024 10:21-0500 Systolic blood pressure 138 mm[Hg] Ashley Dick SPONGE MAKER Work Phone: [facility] 04-11-2024 11:41-0500 Body temperature 97.39 [degF] Miguelito Knupp PT Work Phone: [facility] 04-11-2024 11:41-0500 Diastolic blood pressure 70 mm[Hg] Miguelito Knupp PT Work Phone: [facility] 04-11-2024 11:41-0500 Heart rate 78 /min Miguelito Knupp PT Work Phone: [facility] 04-11-2024 11:41-0500 Respiratory rate 18 /min Miguelito Knupp PT Work Phone: [facility] 04-11-2024 11:41-0500 SaO2% (BldA) [Mass fraction] 95 % Miguelito Knupp PT Work Phone: [facility] 04-11-2024 11:41-0500 Systolic blood pressure 124 mm[Hg] Miguelito Knupp PT Work Phone: [facility] 03-22-2024 09:07-0500 Body height 167.6 cm Pacc 1 Work Phone: [facility] 03-22-2024 09:07-0500 Body mass index (BMI) [Ratio] 34.7 kg/m2 Pacc 1 Work Phone: [facility] 03-22-2024 09:07-0500 Body temperature 96.49 [degF] Pacc 1 Work Phone: [facility] 03-22-2024 09:07-0500 Body weight 97.52 kg Pacc 1 Work Phone: [facility] 03-22-2024 09:07-0500 Diastolic blood pressure 80 mm[Hg] Pacc 1 Work Phone: [facility] 03-22-2024 09:07-0500 Heart rate 84 /min Pacc 1 Work Phone: [facility] 03-22-2024 09:07-0500 Respiratory rate 14 /min Pacc 1 Work Phone: [facility] 03-22-2024 09:07-0500 SaO2% (BldA) [Mass fraction] 97 % Pacc 1 Work Phone: [facility] 03-22-2024 09:07-0500 Systolic blood pressure 128 mm[Hg] Pacc 1 Work Phone: [facility] 01-30-2024 10:32-0500 Body height 170.2 cm Pacc 1 Work Phone: [facility] 01-30-2024 10:32-0500 Body mass index (BMI) [Ratio] 34.3 kg/m2 Pacc 1 Work Phone: [facility] 01-30-2024 10:32-0500 Body temperature 97.11 [degF] Pacc 1 Work Phone: [facility] 01-30-2024 10:32-0500 Body weight 99.34 kg Pacc 1 Work Phone: [facility] 01-30-2024 10:32-0500 Diastolic blood pressure 74 mm[Hg] Pacc 1 Work Phone: [facility] 01-30-2024 10:32-0500 Heart rate 75 /min Pacc 1 Work Phone: [facility] 01-30-2024 10:32-0500 Respiratory rate 14 /min Pacc 1 Work Phone: [facility] 01-30-2024 10:32-0500 SaO2% (BldA) [Mass fraction] 97 % Pacc 1 Work Phone: [facility] 01-30-2024 10:32-0500 Systolic blood pressure 118 mm[Hg] Pacc 1 Work Phone: [facility] 01-27-2024 13:32-0500 Body mass index (BMI) [Ratio] 33.92 kg/m2 Geovanna Queener PA-C Work Phone: [facility] 01-27-2024 13:32-0500 Body weight 98.25 kg Geovanna Arguelloer PA-C Work Phone: [facility] 01-27-2024 13:32-0500 Diastolic blood pressure 78 mm[Hg] Geovanna Arguelloer PA-C Work Phone: [facility] 01-27-2024 13:32-0500 Heart rate 69 /min Geovanna Arguelloer PA-C Work Phone: [facility] 01-27-2024 13:32-0500 SaO2% (BldA) [Mass fraction] 97 % Geovanna Arguelloer PA-C Work Phone: [facility] 01-27-2024 13:32-0500 Systolic blood pressure 105 mm[Hg] Geovanna Arguelloer PA-C Work Phone: [facility] 12-24-2023 08:32-0500 Body mass index (BMI) [Ratio] 34.52 kg/m2 Geovanna Arguelloer PA-C Work Phone: [facility] 12-24-2023 08:32-0500 Body weight 99.97 kg Geovanna Arguelloer PA-C Work Phone: [facility] 12-24-2023 08:32-0500 Diastolic blood pressure 69 mm[Hg] Geovanna Arguelloer PA-C Work Phone: [facility] 12-24-2023 08:32-0500 Heart rate 69 /min Geovanna Arguelloer PA-C Work Phone: [facility] 12-24-2023 08:32-0500 SaO2% (BldA) [Mass fraction] 99 % Geovanna Arguelloer PA-C Work Phone: [facility] 12-24-2023 08:32-0500 Systolic blood pressure 111 mm[Hg] Geovanna Queener PA-C Work Phone: [facility] 10-15-2023 08:29-0400 Body mass index (BMI) [Ratio] 33.25 kg/m2 Lon Radha INTEGRATION MANAGER.LEISURE TRAVEL AGENT Work Phone: [facility] 10-15-2023 08:29-0400 Body weight 96.3 kg Lon Radha INTEGRATION MANAGER.LEISURE TRAVEL AGENT Work Phone: [facility] 10-15-2023 08:29-0400 Diastolic blood pressure 68 mm[Hg] Lon Radha INTEGRATION MANAGER.LEISURE TRAVEL AGENT Work Phone: [facility] 10-15-2023 08:29-0400 Heart rate 76 /min Lon Radha INTEGRATION MANAGER.LEISURE TRAVEL AGENT Work Phone: [facility] 10-15-2023 08:29-0400 SaO2% (BldA) [Mass fraction] 98 % Lon Radha INTEGRATION MANAGER.LEISURE TRAVEL AGENT Work Phone: [facility] 10-15-2023 08:29-0400 Systolic blood pressure 106 mm[Hg] Lon Radha INTEGRATION MANAGER.LEISURE TRAVEL AGENT Work Phone: [facility] 03-30-2023 10:09-0500 Body temperature 97.39 [degF] Zoila Athy PA-C Work Phone: [facility] 03-30-2023 10:09-0500 Body weight 98.07 kg Zoila Athy PA-C Work Phone: [facility] 03-30-2023 10:09-0500 Diastolic blood pressure 85 mm[Hg] Zoila Athy PA-C Work Phone: [facility] 03-30-2023 10:09-0500 Heart rate 83 /min Zoila Athy PA-C Work Phone: [facility] 03-30-2023 10:09-0500 Respiratory rate 18 /min Zoila Athy PA-C Work Phone: [facility] 03-30-2023 10:09-0500 SaO2% (BldA) [Mass fraction] 96 % Zoila Athy PA-C Work Phone: [facility] 03-30-2023 10:09-0500 Systolic blood pressure 135 mm[Hg] Zoila Athy PA-C Work Phone: [facility] 11-13-2022 16:01-0400 Body temperature 97.3 [degF] Dr. Keren Arce Work Phone: [facility] 11-13-2022 16:01-0400 Diastolic blood pressure 82 mm[Hg] Dr. Keren Arce Work Phone: [facility] 11-13-2022 16:01-0400 Heart rate 64 /min Dr. Keren Arce Work Phone: [facility] 11-13-2022 16:01-0400 Respiratory rate 15 /min Dr. Keren Arce Work Phone: [facility] 11-13-2022 16:01-0400 SaO2% (BldA) [Mass fraction] 92 % Dr. Keren Arce Work Phone: [facility] 11-13-2022 16:01-0400 Systolic blood pressure 154 mm[Hg] Dr. Keren Arce Work Phone: [facility] 11-13-2022 14:00-0400 Inhaled oxygen flow rate 1 L/min Dr. Keren Arce Work Phone: [facility] 11-13-2022 09:05-0400 Body height 170.[address] Keren Arce Work Phone: [facility] 11-13-2022 09:05-0400 Body mass index (BMI) [Ratio] 33.5 kg/m2 Dr. Keren Arce Work Phone: [facility] 11-13-2022 09:05-0400 Body weight [address] Keren Arce Work Phone: [facility] 10-02-2022 08:47-0400 Body weight 97.52 kg Lon Garcia INTEGRATION MANAGER.LEISURE TRAVEL AGENT Work Phone: [facility] 10-02-2022 08:47-0400 Diastolic blood pressure 72 mm[Hg] Lon Garcia INTEGRATION MANAGER.LEISURE TRAVEL AGENT Work Phone: [facility] 10-02-2022 08:47-0400 Heart rate 80 /min Lon Radha INTEGRATION MANAGER.LEISURE TRAVEL AGENT Work Phone: [facility] 10-02-2022 08:47-0400 SaO2% (BldA) [Mass fraction] 98 % Lon Radha INTEGRATION MANAGER.LEISURE TRAVEL AGENT Work Phone: [facility] 10-02-2022 08:47-0400 Systolic blood pressure 110 mm[Hg] Lon Radha INTEGRATION MANAGER.LEISURE TRAVEL AGENT Work Phone: [facility] 07-26-2022 10:22-0400 Body weight 97.52 kg Lon Radha INTEGRATION MANAGER.LEISURE TRAVEL AGENT Work Phone: [facility] 07-26-2022 10:22-0400 Diastolic blood pressure 76 mm[Hg] Lon Radha INTEGRATION MANAGER.LEISURE TRAVEL AGENT Work Phone: [facility] 07-26-2022 10:22-0400 Heart rate 82 /min Lon Radha INTEGRATION MANAGER.LEISURE TRAVEL AGENT Work Phone: [facility] 07-26-2022 10:22-0400 SaO2% (BldA) [Mass fraction] 98 % Lon Radha INTEGRATION MANAGER.LEISURE TRAVEL AGENT Work Phone: [facility] 07-26-2022 10:22-0400 Systolic blood pressure 130 mm[Hg] Lon Radha INTEGRATION MANAGER.LEISURE TRAVEL AGENT Work Phone: [facility] 05-09-2022 08:42-0400 Body temperature 96.6 [degF] Rashid Grimes INTEGRATION MANAGER.ELECTRIC LOCOMOTIVE CRANE OPERATOR Work Phone: [facility] 05-09-2022 08:42-0400 Body weight 97.07 kg Rashid Grimes INTEGRATION MANAGER.ELECTRIC LOCOMOTIVE CRANE OPERATOR Work Phone: [facility] 05-09-2022 08:42-0400 Diastolic blood pressure 88 mm[Hg] Rashid Grimes INTEGRATION MANAGER.ELECTRIC LOCOMOTIVE CRANE OPERATOR Work Phone: [facility] 05-09-2022 08:42-0400 Heart rate 72 /min Rashid Grimes INTEGRATION MANAGER.ELECTRIC LOCOMOTIVE CRANE OPERATOR Work Phone: [facility] 05-09-2022 08:42-0400 Respiratory rate 16 /min Rashid Lundbergs INTEGRATION MANAGER.ELECTRIC LOCOMOTIVE CRANE OPERATOR Work Phone: [facility] 05-09-2022 08:42-0400 SaO2% (BldA) [Mass fraction] 98 % Rashid Lundbergs INTEGRATION MANAGER.ELECTRIC LOCOMOTIVE CRANE OPERATOR Work Phone: [facility] 05-09-2022 08:42-0400 Systolic blood pressure 130 mm[Hg] Rashid Grimes INTEGRATION MANAGER.ELECTRIC LOCOMOTIVE CRANE OPERATOR Work Phone: [facility] 04-01-2022 16:18-0500 Body temperature 97.7 [degF] Keren Arce MD Work Phone: [facility] 04-01-2022 16:18-0500 Body weight 99.34 kg Keren Arce MD Work Phone: [facility] 04-01-2022 16:18-0500 Diastolic blood pressure 72 mm[Hg] Keren Arce MD Work Phone: [facility] 04-01-2022 16:18-0500 Heart rate 84 /min Keren Arce MD Work Phone: [facility] 04-01-2022 16:18-0500 Respiratory rate 18 /min Keren Arce MD Work Phone: [facility] 04-01-2022 16:18-0500 SaO2% (BldA) [Mass fraction] 96 % Keren Arce MD Work Phone: [facility] 04-01-2022 16:18-0500 Systolic blood pressure 110 mm[Hg] Keren Arce MD Work Phone: [facility] 11-20-2021 14:45-0400 Body weight 100.7 kg Rashid Lundbergs INTEGRATION MANAGER.ELECTRIC LOCOMOTIVE CRANE OPERATOR Work Phone: [facility] 11-20-2021 14:45-0400 Diastolic blood pressure 54 mm[Hg] Rashid Grimes INTEGRATION MANAGER.ELECTRIC LOCOMOTIVE CRANE OPERATOR Work Phone: [facility] 11-20-2021 14:45-0400 Heart rate 77 /min Rashid Grimes INTEGRATION MANAGER.ELECTRIC LOCOMOTIVE CRANE OPERATOR Work Phone: [facility] 11-20-2021 14:45-0400 Respiratory rate 12 /min Rashid Grimes INTEGRATION MANAGER.ELECTRIC LOCOMOTIVE CRANE OPERATOR Work Phone: [facility] [facility] 11-20-2021 14:45-0400 SaO2% (BldA) [Mass fraction] 97 % Rashid Grimes INTEGRATION MANAGER.ELECTRIC LOCOMOTIVE CRANE OPERATOR Work Phone: [facility] 11-20-2021 14:45-0400 Systolic blood pressure 100 mm[Hg] Rashid Grimes INTEGRATION MANAGER.ELECTRIC LOCOMOTIVE CRANE OPERATOR Work Phone: [facility] 08-10-2021 17:00-0400 Body weight 97.98 kg Keren Arce MD Work Phone: [facility] 08-10-2021 17:00-0400 Diastolic blood pressure 72 mm[Hg] Keren Arce MD Work Phone: [facility] 08-10-2021 17:00-0400 Heart rate 80 /min Keren Arce MD Work Phone: [facility] 08-10-2021 17:00-0400 SaO2% (BldA) [Mass fraction] 97 % Keren Arce MD Work Phone: [facility] 08-10-2021 17:00-0400 Systolic blood pressure 118 mm[Hg] Keren Arce MD Work Phone: [facility] 03-01-2021 06:19-0500 Body height 170.[address] BERNY WALTERS MD [facility] 03-01-2021 06:19-0500 Body temperature 97.52 [degF] DR BERNY WALTERS MD [facility] 03-01-2021 06:19-0500 Body weight [address] BERNY WALTERS MD [facility] 03-01-2021 06:19-0500 Body weight 34.18 kg/m2 DR BERNY WALTERS MD [facility] 03-01-2021 06:19-0500 diastolic 84 mm[Hg] DR BERNY WALTERS MD [facility] 03-01-2021 06:19-0500 Heart rate 86 /min DR BERNY WALTERS MD [facility] 03-01-2021 06:19-0500 Respiratory rate 16 /min DR BERNY WALTERS MD [facility] 03-01-2021 06:19-0500 systolic 132 mm[Hg] DR BERNY WALTERS MD [facility] Encounters Encounter Date Encounter Type Care Provider Facility Start: 08-05-2024 ambulatory Rashad Galax Facility :[facility] Start: 07-22-2024 End: 07-22-[address] KEREN ARCE MD Facility:[facility] Start: 07-22-2024 End: 07-22-[address] BERNY WALTERS MD [facility] Start: 06-29-2024 End: 06-30-2024 Telephone encounter Nakul Maddox MD Work Phone: Orthopaedics Start: 06-25-2024 End: 06-25-2024 Refill Keren Arce MD Work Phone: [address] [place] [address] Comment on above: Refill Request Start: 05-28-2024 End: 05-28-2024 Telephone encounter Keren Arce MD Work Phone: [facility] [place] Comment on above: Patient Question Start: 05-26-2024 End: 05-26-2024 ambulatory NAKUL MADDOX Facility:[facility] Start: 05-26-2024 End: 05-26-2024 Postop follow up visit related to original px Nakul Maddox MD Work Phone: Orthopaedics Comment on above: Status post right hi p replacement (Primary Dx) Start: 05-25-2024 End: 05-25-2024 Telephone encounter Keren Arce MD Work Phone: [facility] [place] Comment on above: Insurance Authorizat ion Start: 05-24-2024 End: 05-24-2024 ambulatory Keren Arce [facility] Start: 05-18-2024 End: 05-18-2024 Telephone encounter Keren Arce MD Work Phone: [facility] [place] Comment on above: Patient Update Start: 05-11-2024 End: 05-11-2024 ambulatory [facility] Facility:[facility] Start: 05-11-2024 End: 05-11-2024 Office outpatient visit 25 minutes [facility] Work Phone: [facility] [place] Comment on above: Status post total re placement of hip, unspecified laterality (Primary Dx); Controlled type 2 diabetes mellitus without complication, without long-term current use of insulin (HCC); Elevated liver enzymes; Left upper quadrant abdominal pain; Hoarseness; Memory difficulties; Hypomagnesemia; Encounter for immunization; Screening for diabetic retinopathy; Screening for abdominal aortic aneurysm; Screening for colon cancer; Pure hypercholesterolemia Start: 05-07-2024 End: 05-07-2024 Telephone encounter Nakul Maddox MD Work Phone: Orthopaedics Start: 05-07-2024 End: 05-07-2024 ambulatory [facility] Facility:[facility] Start: 05-06-2024 End: 05-07-2024 Telephone encounter Keren Arce MD Work Phone: [facility] [place] Comment on above: Orders Start: 04-28-2024 End: 04-28-2024 Home visit Gwne Fox PT Work Phone: [facility] Comment on above: PT AGENCY DC W VISIT Start: 04-28-2024 End: 04-28-2024 ambulatory [facility] Facility:[facility] Start: 04-23-2024 End: 04-23-2024 Home visit Ashley Lanier SPONGE MAKER Work Phone: [facility] Comment on above: SPONGE MAKER ROUTINE Start: 04-22-2024 End: 04-22-2024 Nursing evaluation of patient and report Katie Carolina RN Work Phone: Orthopaedics Comment on above: Status post right hi p replacement (Primary Dx) Start: 04-22-2024 End: 04-22-2024 ambulatory [facility] Facility:[facility] Start: 04-22-2024 End: 04-22-2024 Subsequent hospital visit by physician [facility] Work Phone: Radiology Comment on above: Status post right hi p replacement [Z96.641] Start: 04-21-2024 End: 04-21-2024 Home visit Ashley Lanier SPONGE MAKER Work Phone: [facility] Comment on above: SPONGE MAKER ROUTINE Start: 04-19-2024 End: 04-20-2024 Orders Only Nakul Maddox MD Work Phone: Orthopaedic Surgery [facility] Comment on above: Status post right hi p replacement (Primary Dx) SPONGE MAKER ROUTINE Refill Request Start: 04-15-2024 End: 04-15-2024 Telephone encounter Ashley Lanier SPONGE MAKER Work Phone: [facility] Comment on above: Home Care (Bandage r emoval) Start: 04-15-2024 End: 04-15-2024 Home visit Ashley Lanier SPONGE MAKER Work Phone: [facility] Comment on above: SPONGE MAKER ROUTINE Start: 04-13-2024 End: 04-13-2024 Refill Nakul Maddox MD Work Phone: [address] Comment on above: Refill Request CARE COORDINATION SPONGE MAKER ROUTINE Start: 04-12-2024 End: 04-14-2024 Telephone encounter Nakul Maddox MD Work Phone: Orthopaedics Comment on above: Orders (Walker) Start: 04-11-2024 End: 04-11-2024 Home visit Miguelito Smith PT Work Phone: [facility] Comment on above: PT SOC Start: 04-09-2024 End: 04-09-2024 Telephone encounter Betty Linares PSS [facility] Comment on above: Home Care (Confirmat ion Call) Start: 04-08-2024 End: 04-09-2024 ambulatory NAKUL MADDOX Facility:[facility] Start: 03-31-2024 End: 03-31-2024 Telephone encounter Nakul Maddox MD Work Phone: Orthopaedics Comment on above: Patient Question Start: 03-29-2024 End: 03-30-2024 Refill Keren Arce MD Work Phone: [facility] [place] Comment on above: Refill Request Start: 03-25-2024 End: 03-25-2024 Telephone encounter Nakul Maddox MD Work Phone: [address] Comment on above: Pre-Op Teaching Start: 03-22-2024 Encounter for other preprocedural examination RASHID GRIMES [facility] Start: 03-22-2024 End: 03-22-2024 Admission to establishment [facility] Work Phone: Pre Anesthesia Start: 03-22-2024 End: 03-22-2024 ambulatory LON GARCIA Facility:[facility] Start: 03-22-2024 End: 03-22-2024 Anesthesia consultation [facility] [place] [facility] Work Phone: Pre Anesthesia Comment on above: Pre-operative examin ation (Primary Dx); Cardiomyopathy, unspecified type (HCC); Coronary artery 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 angina pectoris; Primary hypertension; Pure hypercholesterolemia; Diaphragmatic hernia without obstruction and without gangrene; RAJI (obstructive sleep apnea) AHI 39; Pulmonary nodule/lesion, solitary; Gastroesophageal reflux disease with esophagitis without hemorrhage; Controlled type 2 diabetes mellitus without complication, without long-term current use of insulin (HCC); Prostate cancer (HCC); Complaints of memory disturbance Start: 03-22-2024 End: 03-22-2024 Preprocedural examination done [facility] 1 Work Phone: [facility] Work Phone: Start: 02-19-2024 End: 02-20-2024 Telephone encounter Geovanna Hoffman PA-C Work Phone: Neurology Comment on above: Patient Question Start: 02-02-2024 End: 02-06-2024 Telephone encounter Nakul Maddox MD Work Phone: Orthopaedics Comment on above: Patient Question Start: 01-30-2024 End: 01-30-2024 Admission to establishment [facility] 1 Work Phone: Pre Anesthesia Start: 01-30-2024 End: 01-30-2024 ambulatory NAKUL MADDOX Facility:[facility] Start: 01-30-2024 End: 01-30-2024 Anesthesia consultation [facility] 1 Work Phone: Pre Anesthesia Comment on above: Pre-operative examin ation (Primary Dx); Primary hypertension; Pure hypercholesterolemia; Cardiomyopathy, unspecified type (HCC); Coronary artery 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 angina pectoris; RAJI (obstructive sleep apnea) AHI 39; Gastroesophageal reflux disease with esophagitis without hemorrhage; Prostate cancer (HCC); Controlled type 2 diabetes mellitus without complication, without long-term current use of insulin (HCC); Pulmonary nodule/lesion, solitary; Diaphragmatic hernia without obstruction and without gangrene Start: 01-30-2024 End: 01-30-2024 Preprocedural examination done [facility] 1 Work Phone: [facility] Start: 01-27-2024 End: 01-27-2024 Patient encounter procedure Geovanna Hoffman PA-C Work Phone: Neurology Comment on above: Low vitamin B12 leve l (Primary Dx); Diplopia; Memory loss Start: 01-27-2024 End: 01-27-2024 ambulatory [facility] Facility:[facility] Start: 01-19-2024 ambulatory Keren Nicholson y:[facility] Start: 01-18-2024 End: 01-18-[address] [facility] Start: 01-18-2024 End: 01-18-2024 Subsequent hospital visit by physician Mri 6 [facility] Q (I-Stat/1.5t/3t) Work Phone: MRI Q Comment on above: Brain fog [R41.89] Start: 01-16-2024 End: 02-16-2024 Telephone encounter Geovanna Hoffman PA-C Work Phone: Neurology Comment on above: Problem with MRI ord er Start: 12-30-2023 End: 12-30-2023 Telephone encounter Geovanna Hoffman PA-C Work Phone: Neurology Comment on above: Patient Update (labs ) Start: 12-29-2023 End: 12-29-2023 Office outpatient visit 40 minutes Nakul Maddox MD Work Phone: Orthopaedics Comment on above: 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 Start: 12-24-2023 End: 12-24-2023 Patient encounter procedure Geovanna Hoffman PA-C Work Phone: Neurology Comment on above: Brain fog (Primary D x); Diplopia; Memory loss; Other fatigue Start: 12-24-2023 End: 12-24-2023 ambulatory GEOVANNA HOFFMAN Facility:[facility] Start: 12-15-2023 End: 12-19-2023 Telephone encounter Nakul Maddox MD Work Phone: Orthopaedics Comment on above: Appointment Start: 12-10-2023 End: 12-10-2023 Patient encounter procedure Breonna Polk PA-C Work Phone: Orthopaedics Comment on above: 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) Start: 12-10-2023 End: 12-10-2023 ambulatory UNKNOWN PROVIDER Facility:[facility] Start: 12-10-2023 End: 12-10-2023 Subsequent hospital visit by physician [facility] Work Phone: Radiology Comment on above: Bilateral hip pain [ M25.551, M25.552] Start: 12-05-2023 End: 12-05-2023 Telephone encounter Breonna Polk PA-C Work Phone: Orthopaedics Comment on above: Appointment Confirma tion Start: 12-01-2023 End: 12-04-2023 Orders Only Breonna Polk PA-C Work Phone: Orthopaedics Comment on above: Bilateral hip pain ( Primary Dx) requesting referral Start: 11-10-2023 End: 11-10-2023 ambulatory Keren Arce [facility] Start: 10-15-2023 End: 10-15-2023 ambulatory LON GARCIA Facility:[facility] Start: 10-15-2023 End: 10-15-2023 Patient encounter procedure Lon Garcia INTEGRATION MANAGER.LEISURE TRAVEL AGENT Work Phone: [facility] [place] Comment on above: Controlled type 2 di abetes mellitus with hypoglycemia, without long-term current use of insulin (HCC) (Primary Dx); Coronary artery 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 angina pectoris; Primary hypertension; Palpitation; Gastroesophageal reflux disease without esophagitis; Encounter for screening examination for other mental health and behavioral disorders; Screening for depression; Encounter for therapeutic drug monitoring Start: 10-15-2023 End: 10-15-2023 ambulatory Keren Arce Facility:[facility] Start: 10-07-2023 End: 10-07-2023 ambulatory KEREN ARCE Facility:[facility] Start: 10-02-2023 Telephone encounter Keren barclay MD Work Phone: [facility] [place] Comment on above: Patient Question Start: 09-12-2023 End: 09-12-[address] BERNY WALTERS MD Facility:[facility] Start: 09-01-2023 Refill Keren spence MD Work Phone: [facility] [place] Comment on above: Refill Request Start: 07-04-2023 Telephone encounter Keren barclay MD Work Phone: [facility] [place] Comment on above: Patient Update Start: 06-23-2023 End: 06-23-2023 ambulatory LUZ SPENCER MD Facility:[facility] Start: 06-18-2023 End: 06-18-2023 Preprocedural examination done EDITH VINCENT MD [facility] Start: 06-18-2023 End: 06-18-2023 ambulatory EDITH VINCENT Facility:[facility] Start: 06-18-2023 End: 06-18-2023 Patient encounter procedure ASHTYN TAN INTEGRATION MANAGER-LEISURE TRAVEL AGENT [facility] Start: 06-16-2023 Telephone encounter Tasia Shepherd MD Work Phone: [facility] [place] Comment on above: Patient Question Start: 06-10-2023 Telephone encounter Keren barclay MD Work Phone: [facility] [place] Comment on above: OV notes Start: 06-10-2023 End: 06-10-2023 ambulatory ASHTYN TAN INTEGRATION MANAGER-LEISURE TRAVEL AGENT Facility:[facility] Start: 05-22-2023 Telephone encounter Keren barclay MD Work Phone: [facility] [place] Comment on above: requesting a referra l Start: 05-07-2023 Telephone encounter Keren barclay MD Work Phone: [facility] [place] Comment on above: Refill Request (for ketoconazole); continued rash on buttocks; problems sleeping Start: 05-07-2023 End: 05-07-2023 Office outpatient visit 15 minutes Keren Arce MD Work Phone: [facility] [place] Comment on above: Candidal intertrigo (Primary Dx) Start: 04-17-2023 Refill Keren spence MD Work Phone: [facility] [place] Comment on above: Refill Request Start: 04-16-2023 End: 04-16-2023 Office outpatient visit 25 minutes Keren Arce MD Work Phone: [facility] [place] Comment on above: Controlled type 2 di abetes mellitus without complication, without long-term current use of insulin (HCC) (Primary Dx); Coronary artery 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 angina pectoris; Gastroesophageal reflux disease without esophagitis; Candidal intertrigo; Hypomagnesemia; Hoarseness; Primary hypertension; Vitamin D deficiency; Pure hypercholesterolemia; Chronic left shoulder pain; Recurrent major depressive disorder, in full remission (HCC); Need for shingles vaccine; Encounter for immunization; Hip pain, unspecified laterality Start: 04-09-2023 Telephone encounter Keren barclay MD Work Phone: [facility] [place] Comment on above: Patient Update Start: 04-02-2023 Telephone encounter Keren barclay MD Work Phone: [facility] [place] Comment on above: Patient Question Start: 03-30-2023 End: 03-30-2023 Patient encounter procedure Zoila Aguilar PA-C Work Phone: [facility] Comment on above: Acute pansinusitis, recurrence not specified (Primary Dx) Start: 03-26-2023 Refill Keren spence MD Work Phone: [facility] [place] Comment on above: Refill Request Start: 01-14-2023 ambulatory Keren spence MD Work Phone: [facility] [place] Comment on above: Rash Start: 01-01-2023 End: 01-01-[address] Keren Arce Work Phone: [facility] Work Phone: Start: 01-01-2023 End: 01-01-[address] Keren Arce Work Phone: [facility]Physical Therapy Work Phone: Start: 12-31-2022 End: 12-31-[address] Keren Arce Work Phone: [facility] Work Phone: Start: 12-17-2022 End: 12-17-[address] Keren Arce Work Phone: [facility] Work Phone: Start: 11-26-2022 End: 11-26-[address] Keren Arce Work Phone: [facility] Work Phone: Start: 11-15-2022 End: 11-15-[address] Keren Arce Work Phone: [facility] Work Phone: Start: 11-13-2022 Non-patient / Non-visit Dr. Daisy Arce Work Phone: [facility] Start: 11-13-2022 End: 11-13-2022 Admission to same day surgery center Dr. Keren Arce Work Phone: [facility] Start: 11-04-2022 Refill Keren spence MD Work Phone: [facility] [place] Comment on above: Refill Request Start: 10-17-2022 End: 10-17-[address] Keren Arce Work Phone: [facility] Work Phone: Start: 10-08-2022 End: 10-08-[address] Keren Arce Work Phone: [facility] Work Phone: Start: 10-08-2022 End: 10-08-[address] Keren Arce Work Phone: [facility]-Laboratory Work Phone: Start: 10-02-2022 End: 10-02-2022 Patient encounter procedure Lon Garcia APRN.LEISURE TRAVEL AGENT Work Phone: [facility] [place] Comment on above: Controlled type 2 di abetes mellitus without complication, without long-term current use of insulin (HCC) (Primary Dx); Hypomagnesemia; Primary hypertension; Gastroesophageal reflux disease with esophagitis without hemorrhage Start: 07-26-2022 End: 07-26-2022 Patient encounter procedure Lon Garcia APRN.LEISURE TRAVEL AGENT Work Phone: [facility] [place] Comment on above: Controlled type 2 di abetes mellitus without complication, without long-term current use of insulin (HCC) (Primary Dx); Major depressive disorder, recurrent episode, moderate (HCC); Primary hypertension; Other fatigue; Functional bloating Start: 06-27-2022 Telephone encounter Keren barclay MD Work Phone: [facility] [place] Comment on above: Patient Question Start: 06-27-2022 End: 06-27-[address] Keren Arce Work Phone: [facility] Work Phone: Start: 05-30-2022 Telephone encounter Keren barclay MD Work Phone: [facility] [place] Comment on above: Medication Question; Appointment; Patient Update Start: 05-09-2022 End: 05-09-2022 Office outpatient visit 25 minutes Rashid Grimes APRN.CNS Work Phone: [facility] [place] Comment on above: Hoarseness (Primary Dx); Gastroesophageal reflux disease without esophagitis; Nasal drainage Start: 04-10-2022 End: 04-10-2022 [facility] Work Phone: Start: 04-10-2022 End: 04-10-2022 Patient encounter procedure [facility] Start: 04-01-2022 End: 04-02-2022 Office outpatient visit 25 minutes Keren Arce MD Work Phone: [facility] [place] Comment on above: Gastroesophageal ref lux disease without esophagitis (Primary Dx); Controlled type 2 diabetes mellitus without complication, without long-term current use of insulin (HCC); RAJI (obstructive sleep apnea) AHI 39; Pure hypercholesterolemia; Primary hypertension; Hypothyroidism, unspecified type; Vitamin D deficiency; Encounter for long-term current use of medication Start: 03-14-2022 Telephone encounter Keren barclay MD Work Phone: [facility] [place] Comment on above: Patient Question Start: 12-06-2021 End: 12-06-2021 [facility] Work Phone: Start: 12-06-2021 End: 12-06-2021 Patient encounter procedure [facility] [place] Start: 12-02-2021 Telephone encounter Rashid kent APRN.ELECTRIC LOCOMOTIVE CRANE OPERATOR Work Phone: Internal [facility] Comment on above: Results Start: 11-29-2021 End: 11-29-2021 Subsequent hospital visit by physician Catherine [facility] (I-Stat) Work Phone: Cat Scan Comment on above: Abnormal x-ray [R93. 89] Start: 11-20-2021 End: 11-20-2021 Patient encounter procedure Rashid Grimes APRN.CNS Work Phone: [facility] [place] Comment on above: Pulmonary nodule/les ion, solitary (Primary Dx); Lung nodules; Abnormal x-ray; Prostate cancer (HCC) Start: 11-19-2021 End: 11-19-2021 [facility] Work Phone: Start: 11-19-2021 End: 11-19-2021 [facility] [place] Start: 11-10-2021 End: 11-10-2021 ambulatory [facility] Nurse [place] Work Phone: [facility] [place] Start: 10-23-2021 End: 10-23-[address] BERNY WALTERS MD [facility] Start: 08-10-2021 End: 08-10-2021 Office outpatient visit 40 minutes Keren Arce MD Work Phone: [facility] [place] Comment on above: Controlled type 2 di abetes mellitus without complication, without long-term current use of insulin (HCC) (Primary Dx); PVC's (premature ventricular contractions); Primary hypertension; Pure hypercholesterolemia; Coronary artery 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 angina pectoris Start: 07-04-2021 Refill Ethan Allison Work Phone: [facility] [place] Comment on above: Refill Request Start: 06-19-2021 End: 06-19-2021 Patient encounter procedure [facility] Start: 04-18-2021 End: 04-18-[address] BERNY WALTERS MD [facility] Start: 04-04-2021 End: 04-04-2021 Patient encounter procedure [facility] Start: 03-01-2021 End: 03-01-[address] BERNY WALTERS MD [facility] Start: 02-02-2021 End: 02-02-[address] BERNY WALTERS MD [facility] Start: 01-23-2021 End: 01-23-[address] BERNY WALTERS MD [facility] Start: 01-04-2021 Refill Ethan Allison Work Phone: [facility] [place] Comment on above: Refill Request Start: 06-26-2020 End: 06-26-2020 Subsequent hospital visit by physician Xr [facility] [place] Work Phone: Radiology Comment on above: Hip pain [M25.559] Start: 12-02-2019 End: 12-02-2019 Subsequent hospital visit by physician Xr [facility] [place] Work Phone: Radiology Comment on above: Wheezing [R06.2] Procedures Date Procedure Procedure Detail Performing Clinician Start: 03-22-2024 Antibody screen RASHID BAEZ Comment on above: Order Comment: Speci men Type: BLOOD SPECIMENOrdering Facility: [facility] Address: [address] [place] [address] Performed By: #### T [id number] ####CC MAIN BLOOD BANKCLIA [id number] [address] Start: 01-30-2024 Antibody screen RASHID BAEZ Comment on above: Order Comment: Speci men Type: BLOOD SPECIMENOrdering Facility: [facility] Address: [address] [place] [address] Performed By: #### T [id number] ####CC MAIN BLOOD BANKCLIA [id number] [address] [place] Start: 01-18-2024 3d rendering w/interp&postproc diff work station Geovanna Hoffman PA-C Work Phone: Start: 01-18-2024 Mri brain brain stem w/o contrast material Geovanna Hoffman PA-C Work Phone: Start: 10-15-2023 Adult depression scr eening assessment Lon Garcia INTEGRATION MANAGER.LEISURE TRAVEL AGENT Work Phone: Start: 12-06-2021 MRI of joint of lowe r extremity Start: 11-19-2021 Plain chest X-ray Start: 11-10-2021 USINE IO COVI D-19 BIVALENT BOOSTER VACCINE, AGE 12+ YR Jason León MD Work Phone: Start: 11-10-2021 INFLUENZA SEASONAL QUADRIVALENT HIGH DOSE AGE 65+ Keren Arce MD Work Phone: Start: 10-23-2021 Echocardiography ASHTYN TAN INTEGRATION MANAGER-LEISURE TRAVEL AGENT Comment on above: Summary: 1. Left ventricle: The cavity size is normal. Wall thickness is normal. Systolic function is at the lower limits of normal. The estimated ejection fraction is 50-55%. Grade I diastolic dysfunction. 2. Mitral valve: There is mild regurgitation. 3. Right ventricle: The RV systolic pressure by Doppler is 19 mm Hg. 4. Right atrium: The atrium is mildly dilated. The estimated right atrial pressure is 3 mm Hg Start: 04-18-2021 Doppler ultrasonogra phy of bilateral carotid arteries DR BERNY WALTERS MD Comment on above: 1-39% bilaterally Start: 04-18-[address] BENJAMIN WALTERS MD Comment on above: EF 40%+or-5% Start: 03-01-2021 Cardiac catheter (ph ysical object) DR BERNY WALTERS MD Comment on above: SUMMARY: 1. Left main: There is no evidence of disease. 2. LAD: Proximal vessel lesion: There is a 40% stenosis. Mild diffuse disease in mid and distal LAD. 3. Right posterior descending: Ostial lesion: There is a 60% stenosis. 4. Left circumflex: There is mild diffuse disease. IMPRESSIONS: The study demonstrates moderate coronary artery disease in ostial RPDA and mild proximal LAD disease RECOMMENDATIONS: 1. Patient management should include aggressive medical therapy. 2. Consider PCI if refractory to medical therapy. Start: 06-26-2020 Radex hips bilateral with pelvis minimum 5 views Ethan Montero MD Work Phone: Start: 12-02-2019 Radiologic exam ches t 2 views Ethan Montero MD Work Phone: Start: 06-12-2017 Mery rodrigues MD Work Phone: Start: 06-25-2012 Cardiac catheterization Cardia c catheterization( Confirmed ) DR BERNY WALTERS MD Start: 06-25-2012 Catheterization of l eft heart DR BERNY WALTERS MD Comment on above: HEMODYNAMIC DATA ?Le ft Heart Pressures: Left ventricle Pressure: 125/7 mmHg Aortic Pressure: 137/84 mmHg CORONARY ARTERIOGRAMS: ?Left Main Coronary Artery: The left main is free of disease. ?Left Anterior Descending Coronary Artery: The left anterior descending and its branches are free of disease. ?Left Circumflex Coronary Artery: The circumflex is free of disease. ?Right Coronary Artery: The right coronary artery had mild ectasia, but no significant disease. LEFT VENTRICULOGRAM: The LV gram demonstrated normal wall motion, ejection fraction of 50%. HEMODYNAMIC DATA Lef t Heart Pressures: Left ventricle Pressure: 125/7 mmHg Aortic Pressure: 137/84 mmHg CORONARY ARTERIOGRAMS: Left Main Coronary Artery: The left main is free of disease. Left Anterior Descending Coronary Artery: The left anterior descending and its branches are free of disease. Left Circumflex Coronary Artery: The circumflex is free of disease. Right Coronary Artery: The right coronary artery had mild ectasia, but no significant disease. LEFT VENTRICULOGRAM: The LV gram demonstrated normal wall motion, ejection fraction of 50%. Prostatic structure (body structure) DR BERNY WALTERS MD Plan of Treatment Date Care Activity Detail Author Start: 2026 RSV Vaccine (1 - 1-dose 75+ series) RSV Vaccine (1 - 1-dose 75+ series) [facility] Start: 05-11-2025 BP Controlled (<130/80) BP Controlled (<130/80) [facility] Start: 04-28-2025 BP Controlled (<130/80) BP Controlled (<130/80) [facility] Start: 04-23-2025 BP Controlled (<130/80) BP Controlled (<130/80) [facility] Start: 04-21-2025 BP Controlled (<130/80) BP Controlled (<130/80) [facility] Start: 04-19-2025 BP Controlled (<130/80) BP Controlled (<130/80) [facility] Start: 04-11-2025 BP Controlled (<130/80) BP Controlled (<130/80) [facility] Start: 03-22-2025 Hepatitis B surface antibody level LDL Cholesterol [facility] Start: 01-29-2025 BP Controlled (<130/80) BP Controlled (<130/80) [facility] Start: 01-26-2025 BP Controlled (<130/80) BP Controlled (<130/80) [facility] Start: 12-23-2024 BP Controlled (<130/80) BP Controlled (<130/80) [facility] Start: 11-29-2024 End: 11-29-2024 Patient encounter procedure 11/29/2024 10:20 AM EDT Office Visit Orthopaedics [address] [place] [id number] Nakul Maddox MD [facility] [place] [address] 6 mo follow up- R INES DOS 04/08/24 Orthopaedics Comment on above: 6 mo follow up- R INES DOS 04/08/24 Start: 11-23-2024 End: 11-23-2024 Patient encounter procedure 11/23/2024 10:20 AM EDT Office Visit [facility] [address] [place], [place] [id number] Keren Arce MD [address] [place] [address] 6 month f/u [facility] Comment on above: 6 month f/u Start: 11-11-2024 End: 02-16-2025 CBC W Auto Differential panel - Blood COMPLETE BLOOD COUNT AND DIFFERENTIAL Lab Routine Controlled type 2 diabetes mellitus without complication, without long-term current use of insulin (HCC) Expected: 11/11/2024 (Approximate), Expires: 02/16/2025 [facility] Comment on above: Expected: 11/11/2024 (Approximate), Expi res: 02/16/2025 Start: 11-11-2024 End: 02-16-2025 Comprehensive metabolic 2000 panel - Serum or Plasma COMPREHENSIVE METABOLIC PANEL Lab Routine Controlled type 2 diabetes mellitus without complication, without long-term current use of insulin (HCC) Expected: 11/11/2024 (Approximate), Expires: 02/16/2025 [facility] Comment on above: Expected: 11/11/2024 (Approximate), Expi res: 02/16/2025 Start: 11-11-2024 End: 02-16-2025 Hemoglobin A1c in Blood HEMOGLOBIN A1C Lab Routine Controlled type 2 diabetes mellitus without complication, without long-term current use of insulin (HCC) Expected: 11/11/2024 (Approximate), Expires: 02/16/2025 [facility] Comment on above: Expected: 11/11/2024 (Approximate), Expi res: 02/16/2025 Start: 11-11-2024 End: 02-16-2025 Lipid 1996 panel - Serum or Plasma LIPID PANEL, FASTING Lab Routine Controlled type 2 diabetes mellitus without complication, without long-term current use of insulin (HCC) Expected: 11/11/2024 (Approximate), Expires: 02/16/2025 [facility] Comment on above: Expected: 11/11/2024 (Approximate), Expi res: 02/16/2025 Start: 11-11-2024 End: 02-16-2025 Microalbumin/Creatinine [Mass Ratio] in Urine ALBUMIN/CREATININE RATIO, URINE Lab Routine Controlled type 2 diabetes mellitus without complication, without long-term current use of insulin (HCC) Expected: 11/11/2024 (Approximate), Expires: 02/16/2025 [facility] Comment on above: Expected: 11/11/2024 (Approximate), Expi res: 02/16/2025 Start: 10-14-2024 Annual PCP Team Chronic Disease Visit Annual PCP Team Chronic Disease Visit [facility] Start: 10-14-2024 Anxiety Screening Anxiety Screening [facility] Start: 10-14-2024 BP Controlled (<130/80) BP Controlled (<130/80) [facility] Start: 10-14-2024 Depression Screening Depression Screening [facility] Start: 10-06-2024 Hepatitis B screening Urine Albumin:Creatinine Ratio [facility] Start: 10-06-2024 Hepatitis B surface antibody level LDL Cholesterol [facility] Start: 09-19-2024 Hemoglobin A1c measurement HbA1C [facility] Start: 06-29-2024 End: 06-29-2024 Patient encounter procedure 06/29/2024 3:45 PM EDT Office Visit Neurology [address] [place], [place] [phone] Geovanna Hoffman PA-C [address] [place], [place] [id number] 5 month follow up Neurology Comment on above: 5 month follow up Start: 06-12-2024 Colonoscopy COLONOSCOPY [facility] Start: 06-12-2024 COLORECTAL CANCER SCREENING COLORECTAL CANCER SCREENING [facility] Start: 06-12-2024 Screening for malignant neoplasm of colon [facility] Start: 06-11-2024 End: 09-10-2024 Comprehensive metabolic 2000 panel - Serum or Plasma COMPREHENSIVE METABOLIC PANEL Lab Routine Elevated liver enzymes Expected: 06/11/2024 (Approximate), Expires: 09/10/2024 [facility] Comment on above: Expected: 06/11/2024 (Approximate), Expi res: 09/10/2024 Start: 05-26-2024 End: 05-26-2024 Patient encounter procedure 05/26/2024 10:20 AM EDT Office Visit Orthopaedics [address] [address] Nakul Maddox MD [address] [place] [address] R INES DOS 04/08/24 Orthopaedics Comment on above: R INES DOS 04/08/24 Start: 05-11-2024 End: 05-11-2024 Patient encounter procedure 05/11/2024 1:20 PM EDT Office Visit [facility] [address] [place], [place] [phone] Rashid Grimes APRN.ELECTRIC LOCOMOTIVE CRANE OPERATOR [address] [place], [place] [phone] 6 month follow up [facility] Comment on above: 6 month follow up Start: 05-07-2024 End: 08-07-2024 Amylase [Enzymatic activity/volume] in Serum or Plasma [facility] Work Phone: Comment on above: Expected: 05/07/2024 (Approximate), Expi res: 08/07/2024 Start: 05-07-2024 End: 08-07-2024 Lipase [Enzymatic activity/volume] in Serum or Plasma [facility] Comment on above: Expected: 05/07/2024 (Approximate), Expi res: 08/07/2024 Start: 05-06-2024 Annual PCP Team Chronic Disease Visit Annual PCP Team Chronic Disease Visit [facility] Start: 04-29-2024 Hemoglobin A1c measurement HbA1C [facility] Start: 04-22-2024 End: 04-22-2024 Nursing evaluation of patient and report Orthopaedics Comment on above: R INES DOS 02/19/24 R INES DOS 04/08/24 Start: 04-19-2024 End: 04-19-2024 Patient encounter procedure 04/19/2024 9:40 AM EST Office Visit [facility] [address] [place] [address] Keren Arce MD [address] [place] [address] 6 month follow up [facility] Comment on above: 6 month follow up Start: 04-16-2024 Annual PCP Team Chronic Disease Visit Annual PCP Team Chronic Disease Visit [facility] Start: 04-16-2024 BP Controlled (<130/80) BP Controlled (<130/80) [facility] Start: 04-16-2024 End: 07-16-2024 CBC W Auto Differential panel - Blood COMPLETE BLOOD COUNT AND DIFFERENTIAL Lab Routine Encounter for therapeutic drug monitoring Expected: 04/16/2024, Expires: 07/16/2024 [facility] Work Phone: Comment on above: Expected: 04/16/2024, Expires: Start: 04-16-2024 End: 07-16-2024 Comprehensive metabolic 2000 panel - Serum or Plasma COMPREHENSIVE METABOLIC PANEL Lab Routine Encounter for therapeutic drug monitoring Expected: 04/16/2024, Expires: 07/16/2024 [facility] Comment on above: Expected: 04/16/2024, Expires: Start: 04-16-2024 End: 07-16-2024 Hemoglobin A1c in Blood HEMOGLOBIN A1C Lab Routine Controlled type 2 diabetes mellitus with hypoglycemia, without long-term current use of insulin (HCC) Expected: 04/16/2024, Expires: 07/16/2024 [facility] Comment on above: Expected: 04/16/2024, Expires: Start: 04-16-2024 End: 07-16-2024 Lipid 1996 panel - Serum or Plasma LIPID PANEL BASIC Lab Routine Controlled type 2 diabetes mellitus with hypoglycemia, without long-term current use of insulin (HCC) Expected: 04/16/2024, Expires: 07/16/2024 [facility] Comment on above: Expected: 04/16/2024, Expires: Start: 04-16-2024 End: 07-16-2024 Magnesium [Mass/volume] in Serum or Plasma MAGNESIUM Lab Routine Encounter for therapeutic drug monitoring Expected: 04/16/2024, Expires: 07/16/2024 [facility] Comment on above: Expected: 04/16/2024, Expires: Start: 04-08-2024 Hemoglobin A1c measurement HbA1C [facility] Start: 04-08-2024 End: 04-08-2024 Admission to same day surgery center 04/08/2024 12:47 PM EST - 04/08/2024 3:40 PM EST Surgery [facility] [address] [place] [address] Nakul Maddox MD [address] [place] [address] ARTHROPLASTY ACETABULAR AND PROX FEM PROSTH TOTAL HIP ANTERIOR APPROACH [facility] Comment on above: ARTHROPLASTY ACETABULAR AND PROX FEM PRO STH TOTAL HIP ANTERIOR APPROACH Start: 04-08-2024 End: 04-08-2024 Arthrp acetblr/prox fem prostc agrft/algrft ARTHROPLASTY ACETABULAR AND PROX FEM PROSTH TOTAL HIP ANTERIOR APPROACH W/W/O AUTOGRAFT Primary osteoarthritis of both hips 04/08/2024 12:47 PM EST ME OR Start: 04-08-2024 Subsequent hospital visit by physician 04/08/2024 12:47 PM EST Hospital Encounter [facility] [address] [place] [address] Nakul Maddox MD [address] [place] [address] Primary osteoarthritis of both hips [M16.0] [facility] Comment on above: Primary osteoarthritis of both hips [M16 .0] Start: 03-22-2024 End: 06-21-2024 TYPE AND SCREEN,30 DAY [facility] Work Phone: Comment on above: Expected: 03/22/2024, Expires: Start: 03-04-2024 End: 03-04-2024 Nursing evaluation of patient and report 03/04/2024 2:00 PM EST Nurse Visit Orthopaedics [address] [place] [address] Katie Carolina, CHRISTOPH [address] [address] R INES DOS 02/19/24 Orthopaedics Comment on above: R INES DOS 02/19/24 Start: 02-19-2024 End: 02-19-2024 Admission to same day surgery center 02/19/2024 1:56 PM EST - 02/19/2024 4:49 PM EST Surgery [facility] [address] [place] [address] Nakul Maddox MD [address] [place] [address] ARTHROPLASTY ACETABULAR AND PROX FEM PROSTH TOTAL HIP ANTERIOR APPROACH [facility] Comment on above: ARTHROPLASTY ACETABULAR AND PROX FEM PRO STH TOTAL HIP ANTERIOR APPROACH Start: 02-19-2024 End: 02-19-2024 Arthrp acetblr/prox fem prostc agrft/algrft ARTHROPLASTY ACETABULAR AND PROX FEM PROSTH TOTAL HIP ANTERIOR APPROACH W/W/O AUTOGRAFT Primary osteoarthritis of both hips 02/19/2024 1:56 PM EST ME OR Start: 02-19-2024 Subsequent hospital visit by physician 02/19/2024 1:56 PM EST Hospital Encounter [facility] [address] [place] [address] Nakul Maddox MD [address] [place] [address] Primary osteoarthritis of both hips [M16.0] [facility] Comment on above: Primary osteoarthritis of both hips [M16 .0] Start: 02-18-2024 Advance Directive Discussion Advance Directive Discussion [facility] Start: 01-30-2024 End: 01-30-2024 Anesthesia consultation 01/30/2024 10:40 AM EST PAT Pre Anesthesia [address] [place] [address] 1, [facility] [address] [place] [address] 1/2 ARTHROPLASTY REPLACE JOINT TOTAL HIP (see comments) [3131] - Hip - Right Pre Anesthesia Comment on above: 1/2 ARTHROPLASTY REPLACE JOINT TOTAL HIP (see comments) [3131] - Hip - Right Start: 01-27-2024 End: 04-27-2024 Cobalamin (Vitamin B12) [Mass/volume] in Serum or Plasma VITAMIN B12 Lab Routine Low vitamin B12 level Expected: 01/27/2024, Expires: 04/27/2024 [facility] Work Phone: Comment on above: Expected: 01/27/2024, Expires: Start: 01-27-2024 End: 01-27-2024 Patient encounter procedure 01/27/2024 1:45 PM EST Office Visit Neurology [address] [place] [address] Geovanna Hoffman PA-C [address] [place] [address] Diplopia [H53.2]; Headaches [R51.9] Neurology Comment on above: Diplopia [H53.2]; Headaches [R51.9] Start: 01-07-2024 End: 01-07-2024 Patient encounter procedure 01/07/2024 9:30 AM EST Office Visit Neurology [address] [place] [address] Geovanna Hoffman PA-C [address] [facility] [place] [address] Diplopia [H53.2]; Headaches [R51.9] Neurology Comment on above: Diplopia [H53.2]; Headaches [R51.9] Start: 12-29-2023 End: 03-29-2024 CBC W Auto Differential panel - Blood COMPLETE BLOOD COUNT AND DIFFERENTIAL Lab Routine Primary osteoarthritis of both hips Expected: 12/29/2023, Expires: 03/29/2024 [facility] Comment on above: Expected: 12/29/2023, Expires: Start: 12-29-2023 End: 03-29-2024 Comprehensive metabolic 2000 panel - Serum or Plasma COMPREHENSIVE METABOLIC PANEL Lab Routine Primary osteoarthritis of both hips Expected: 12/29/2023, Expires: 03/29/2024 [facility] Comment on above: Expected: 12/29/2023, Expires: Start: 12-29-2023 End: 03-29-2024 Hemoglobin A1c in Blood HEMOGLOBIN A1C Lab Routine Primary osteoarthritis of both hips Expected: 12/29/2023, Expires: 03/29/2024 [facility] Comment on above: Expected: 12/29/2023, Expires: Start: 12-29-2023 End: 03-29-2024 TYPE AND SCREEN,30 DAY TYPE AND SCREEN,30 DAY Blood Bank Routine Primary osteoarthritis of both hips Expected: 12/29/2023, Expires: 03/29/2024 [facility] Work Phone: Comment on above: Expected: 12/29/2023, Expires: Start: 12-29-2023 End: 12-29-2023 Patient encounter procedure 12/29/2023 11:00 AM EST Office Visit Orthopaedics [address] [address] Nakul Maddox MD [address] [place] [address] bilateral hip replacement consult Orthopaedics Comment on above: bilateral hip replacement consult Start: 12-24-2023 End: 03-24-2024 Cobalamin (Vitamin B12) [Mass/volume] in Serum or Plasma [facility] Comment on above: Expected: 12/24/2023, Expires: Start: 12-24-2023 End: 03-24-2024 Folate [Mass/volume] in Serum or Plasma [facility] Comment on above: Expected: 12/24/2023, Expires: Start: 12-24-2023 End: 03-24-2024 Methylmalonate [Moles/volume] in Serum or Plasma [facility] Comment on above: Expected: 12/24/2023, Expires: Start: 12-24-2023 End: 03-24-2024 SYPHILIS TREPONEMAL W/REFLEX [facility] Comment on above: Expected: 12/24/2023, Expires: Start: 12-24-2023 End: 03-24-2024 Thyrotropin [Units/volume] in Serum or Plasma [facility] Comment on above: Expected: 12/24/2023, Expires: Start: 12-24-2023 End: 12-24-2023 Patient encounter procedure 12/24/2023 8:30 AM EST Office Visit Neurology [address] [place], [place] [address] Geovanna Hoffman PA-C [address] [place], [place] [phone] Diplopia [H53.2]; Headaches [R51.9] Neurology Comment on above: Diplopia [H53.2]; Headaches [R51.9] Start: 12-10-2023 End: 12-10-2023 Patient encounter procedure Radiology Comment on above: bilateral hip pain Start: 10-19-2023 Covid-19 Vaccine ( season) Covid-19 Vaccine () [facility] Start: 10-19-2023 Influenza vaccination Influenza Vaccine (#1) [facility] Start: 10-15-2023 End: 11-27-2024 25-hydroxyvitamin D3 [Mass/volume] in Serum or Plasma VITAMIN D 25 HYDROXY Lab Routine Vitamin D deficiency Expected: 10/15/2023 (Approximate), Expires: 01/14/2024 [facility] Work Phone: Comment on above: Expected: 10/15/2023 (Approximate), Expi res: 01/14/2024 Start: 10-15-2023 End: 01-14-2024 ALBUMIN/CREAT RATIO RND UR ALBUMIN/CREAT RATIO RND UR Lab Routine Controlled type 2 diabetes mellitus without complication, without long-term current use of insulin (HCC) Expected: 10/15/2023 (Approximate), Expires: 01/14/2024 [facility] Work Phone: Comment on above: Expected: 10/15/2023 (Approximate), Expi res: 01/14/2024 Start: 10-15-2023 End: 01-14-2024 CBC panel - Blood by Automated count CBC Lab Routine Primary hypertension Expected: 10/15/2023 (Approximate), Expires: 01/14/2024 [facility] Work Phone: Comment on above: Expected: 10/15/2023 (Approximate), Expi res: 01/14/2024 Start: 10-15-2023 End: 01-14-2024 Comprehensive metabolic 2000 panel - Serum or Plasma COMP METABOLIC PANEL Lab Routine Controlled type 2 diabetes mellitus without complication, without long-term current use of insulin (HCC) Primary hypertension Expected: 10/15/2023 (Approximate), Expires: 01/14/2024 [facility] Work Phone: Comment on above: Expected: 10/15/2023 (Approximate), Expi res: 01/14/2024 Start: 10-15-2023 End: 01-14-2024 Hemoglobin A1c in Blood HGB A1C Lab Routine Controlled type 2 diabetes mellitus without complication, without long-term current use of insulin (HCC) Expected: 10/15/2023 (Approximate), Expires: 01/14/2024 [facility] Work Phone: Comment on above: Expected: 10/15/2023 (Approximate), Expi res: 01/14/2024 Start: 10-15-2023 End: 01-14-2024 Lipid 1996 panel - Serum or Plasma LIPID PANEL BASIC Lab Routine Pure hypercholesterolemia Expected: 10/15/2023 (Approximate), Expires: 01/14/2024 [facility] Work Phone: Comment on above: Expected: 10/15/2023 (Approximate), Expi res: 01/14/2024 Start: 10-15-2023 End: 01-14-2024 Magnesium [Mass/volume] in Serum or Plasma MAGNESIUM BLD Lab Routine Hypomagnesemia Expected: 10/15/2023 (Approximate), Expires: 01/14/2024 [facility] Work Phone: Comment on above: Expected: 10/15/2023 (Approximate), Expi res: 01/14/2024 Start: 10-15-2023 End: 10-15-2023 Patient encounter procedure 10/15/2023 8:40 AM EDT Office Visit [facility] [address] [place] [phone] Lon Garcia APRN.LEISURE TRAVEL AGENT [address] [place] [address] 6 month follow up [facility] Comment on above: 6 month follow up Start: 10-06-2023 Hemoglobin A1c measurement HbA1C [facility] Start: 10-03-2023 ANNUAL PCP TEAM CHRONIC DISEASE VISIT ANNUAL PCP TEAM CHRONIC DISEASE VISIT [facility] Start: 10-03-2023 BP CONTROLLED (<130/80) BP CONTROLLED (<130/80) [facility] Start: 09-27-2023 Hepatitis B surface antibody level LDL CHOLESTEROL [facility] Start: 07-27-2023 ANNUAL PCP TEAM CHRONIC DISEASE VISIT ANNUAL PCP TEAM CHRONIC DISEASE VISIT [facility] Start: 06-05-2023 ANNUAL PCP TEAM CHRONIC DISEASE VISIT ANNUAL PCP TEAM CHRONIC DISEASE VISIT [facility] Start: 06-05-2023 BP CONTROLLED (<130/80) BP CONTROLLED (<130/80) [facility] Start: 05-08-2023 Covid-19 Vaccine ( season) Covid-19 Vaccine () [facility] Start: 04-04-2023 End: 06-04-2023 CBC W Auto Differential panel - Blood CBC + DIFF Lab Routine Primary hypertension Gastroesophageal reflux disease with esophagitis without hemorrhage Controlled type 2 diabetes mellitus without complication, without long-term current use of insulin (HCC) Expected: 04/04/2023, Expires: 06/04/2023 [facility] Work Phone: Comment on above: Expected: 04/04/2023, Expires: 4 Start: 04-04-2023 End: 06-04-2023 Comprehensive metabolic 2000 panel - Serum or Plasma COMP METABOLIC PANEL Lab Routine Primary hypertension Gastroesophageal reflux disease with esophagitis without hemorrhage Controlled type 2 diabetes mellitus without complication, without long-term current use of insulin (HCC) Expected: 04/04/2023, Expires: 06/04/2023 [facility] Work Phone: Comment on above: Expected: 04/04/2023, Expires: 4 Start: 04-04-2023 End: 06-04-2023 Hemoglobin A1c in Blood HGB A1C Lab Routine Controlled type 2 diabetes mellitus without complication, without long-term current use of insulin (HCC) Expected: 04/04/2023, Expires: 06/04/2023 [facility] Work Phone: Comment on above: Expected: 04/04/2023, Expires: 4 Start: 04-04-2023 End: 06-04-2023 Magnesium [Mass/volume] in Serum or Plasma MAGNESIUM BLD Lab Routine Gastroesophageal reflux disease with esophagitis without hemorrhage Hypomagnesemia Expected: 04/04/2023, Expires: 06/04/2023 [facility] Work Phone: Comment on above: Expected: 04/04/2023, Expires: Start: 04-01-2023 ANNUAL PCP TEAM CHRONIC DISEASE VISIT ANNUAL PCP TEAM CHRONIC DISEASE VISIT [facility] Start: 04-01-2023 BP CONTROLLED (<130/80) BP CONTROLLED (<130/80) [facility] Start: 03-29-2023 Hemoglobin A1c measurement HbA1C [facility] Start: 03-29-2023 Hemoglobin A1c/Hemoglobin.total in Blood HBA1C [facility] Start: 03-26-2023 Hepatitis B screening URINE ALBUMIN:CREATININE RATIO [facility] Start: 03-26-2023 Hepatitis B surface antibody level LDL CHOLESTEROL [facility] Start: 02-17-2023 Advance Directive Discussion Advance Directive Discussion [facility] Start: 02-17-2023 Behavioral Health Screening Behavioral Health Screening [facility] Start: 11-20-2022 BP CONTROLLED (<130/80) BP CONTROLLED (<130/80) [facility] Start: 11-15-2022 Patient referral [facility] Work Phone: Start: 11-13-2022 Anes arthrs humeral h/n strnclav & shoulder nos ANESTH SURGERY OF SHOULDER [facility] Start: 11-13-2022 Arthroscopy shoulder rotator cuff repair BRENDA ARTHRS SRG [id number] CUF RPR [facility] Start: 11-13-2022 Arthroscopy shoulder w/coracoacrm ligmnt release BRENDA ARTHRS SRG DECOMPRESSION [facility] Start: 11-13-2022 Injection aa&/strd brachial plexus NJX AA&/STRD BRCH PLXS IMG [facility] Start: 11-13-2022 Application of device [facility] Start: 11-13-2022 Assessment of risk of venous thromboembolism [facility] Start: 11-13-2022 Catheterization of vein [facility] Start: 11-13-2022 Deep breathing and coughing exercises [facility] Start: 11-13-2022 Following clinical pathway protocol [facility] Start: 11-13-2022 Incentive spirometry [facility] Start: 11-13-2022 Introduction of urinary catheter [facility] Start: 11-13-2022 Patient discharge [facility] Start: 11-13-2022 Patient education [facility] Start: 11-13-2022 Taking patient vital signs [facility] Start: 11-13-2022 Vital signs measurements [facility] Start: 11-13-2022 End: 11-13-2022 [facility] Start: 11-13-2022 Medication education [facility] Start: 10-18-2022 Covid-19 Vaccine ( season) Covid-19 Vaccine ( season) [facility] Start: 10-18-2022 Influenza vaccination [facility] Start: 10-08-2022 Urine microalbumin profile [facility] Start: 09-29-2022 End: 11-29-2022 25-hydroxyvitamin D3 [Mass/volume] in Serum or Plasma VITAMIN D 25 HYDROXY Lab Routine Vitamin D deficiency Expected: 09/29/2022 (Approximate), Expires: 11/29/2022 [facility] Work Phone: Comment on above: Expected: 09/29/2022 (Approximate), Expi res: 11/29/2022 Start: 09-29-2022 End: 11-29-2022 CBC panel - Blood by Automated count CBC Lab Routine Primary hypertension Expected: 09/29/2022 (Approximate), Expires: 11/29/2022 [facility] Work Phone: Comment on above: Expected: 09/29/2022 (Approximate), Expi res: 11/29/2022 Start: 09-29-2022 End: 11-29-2022 Comprehensive metabolic 2000 panel - Serum or Plasma COMP METABOLIC PANEL Lab Routine Controlled type 2 diabetes mellitus without complication, without long-term current use of insulin (HCC) Primary hypertension Expected: 09/29/2022 (Approximate), Expires: 11/29/2022 [facility] Work Phone: Comment on above: Expected: 09/29/2022 (Approximate), Expi res: 11/29/2022 Start: 09-29-2022 End: 11-29-2022 Hemoglobin A1c in Blood HGB A1C Lab Routine Controlled type 2 diabetes mellitus without complication, without long-term current use of insulin (HCC) Expected: 09/29/2022 (Approximate), Expires: 11/29/2022 [facility] Work Phone: Comment on above: Expected: 09/29/2022 (Approximate), Expi res: 11/29/2022 Start: 09-29-2022 End: 11-29-2022 Lipid 1996 panel - Serum or Plasma LIPID PANEL BASIC Lab Routine Pure hypercholesterolemia Expected: 09/29/2022 (Approximate), Expires: 11/29/2022 [facility] Work Phone: Comment on above: Expected: 09/29/2022 (Approximate), Expi res: 11/29/2022 Start: 09-29-2022 End: 11-29-2022 Magnesium [Mass/volume] in Serum or Plasma MAGNESIUM BLD Lab Routine Encounter for long-term current use of medication Expected: 09/29/2022 (Approximate), Expires: 11/29/2022 [facility] Work Phone: Comment on above: Expected: 09/29/2022 (Approximate), Expi res: 11/29/2022 Start: 09-29-2022 End: 11-29-2022 Thyrotropin [Units/volume] in Serum or Plasma TSH BLD Lab Routine Hypothyroidism, unspecified type Expected: 09/29/2022 (Approximate), Expires: 11/29/2022 [facility] Work Phone: Comment on above: Expected: 09/29/2022 (Approximate), Expi res: 11/29/2022 Start: 09-29-2022 End: 11-29-2022 Thyroxine (T4) free [Mass/volume] in Serum or Plasma T4 FREE/FREE THYROX Lab Routine Hypothyroidism, unspecified type Expected: 09/29/2022 (Approximate), Expires: 11/29/2022 [facility] Work Phone: Comment on above: Expected: 09/29/2022 (Approximate), Expi res: 11/29/2022 Start: 09-29-2022 End: 11-29-2022 Triiodothyronine (T3) Free [Mass/volume] in Serum or Plasma T3 FREE BLD Lab Routine Hypothyroidism, unspecified type Expected: 09/29/2022 (Approximate), Expires: 11/29/2022 [facility] Work Phone: Comment on above: Expected: 09/29/2022 (Approximate), Expi res: 11/29/2022 Start: 09-23-2022 Hemoglobin A1c/Hemoglobin.total in Blood HBA1C [facility] Start: 08-10-2022 ANNUAL PCP TEAM CHRONIC DISEASE VISIT ANNUAL PCP TEAM CHRONIC DISEASE VISIT [facility] Start: 08-10-2022 BP CONTROLLED (<130/80) BP CONTROLLED (<130/80) [facility] Start: 08-10-2022 PNEUMOCOCCAL: 65+ (3 - PPSV23 if available, else PCV20) PNEUMOCOCCAL: 65+ (3 - PPSV23 if available, else PCV20) [facility] Comment on above: Postponed from 11/22/2019 (Declined at t his time) Start: 08-10-2022 PNEUMOCOCCAL: 65+ (3 - PPSV23 or PCV20) PNEUMOCOCCAL: 65+ (3 - PPSV23 or PCV20) [facility] Comment on above: Postponed from 11/22/2019 (Declined at t his time) Start: 08-10-2022 SHINGRIX VACCINE (2 of 3) SHINGRIX VACCINE (2 of 3) [facility] Comment on above: Postponed from 09/18/2011 (Declined at t his time) Start: 06-12-2022 Colonoscopy COLONOSCOPY [facility] Start: 06-12-2022 COLORECTAL CANCER SCREENING COLORECTAL CANCER SCREENING [facility] Start: 03-15-2022 End: 05-15-2022 25-hydroxyvitamin D3 [Mass/volume] in Serum or Plasma VITAMIN D 25 HYDROXY Lab Routine Chronic fatigue Encounter for long-term current use of medication Expected: 03/15/2022, Expires: 05/15/2022 [facility] Work Phone: Comment on above: Expected: 03/15/2022, Expires: 3 Start: 03-15-2022 End: 05-15-2022 CBC panel - Blood by Automated count CBC Lab Routine Primary hypertension Chronic fatigue Encounter for long-term current use of medication Expected: 03/15/2022, Expires: 05/15/2022 [facility] Work Phone: Comment on above: Expected: 03/15/2022, Expires: 3 Start: 03-15-2022 End: 05-15-2022 Comprehensive metabolic 2000 panel - Serum or Plasma COMP METABOLIC PANEL Lab Routine Controlled type 2 diabetes mellitus without complication, without long-term current use of insulin (HCC) Primary hypertension Fatty liver Chronic fatigue Encounter for long-term current use of medication Expected: 03/15/2022, Expires: 05/15/2022 [facility] Work Phone: Comment on above: Expected: 03/15/2022, Expires: Start: 03-15-2022 End: 05-15-2022 Hemoglobin A1c in Blood HGB A1C Lab Routine Controlled type 2 diabetes mellitus without complication, without long-term current use of insulin (HCC) Chronic fatigue Encounter for long-term current use of medication Expected: 03/15/2022, Expires: 05/15/2022 [facility] Work Phone: Comment on above: Expected: 03/15/2022, Expires: Start: 03-15-2022 End: 05-15-2022 Lipid 1996 panel - Serum or Plasma LIPID PANEL BASIC Lab Routine Pure hypercholesterolemia Chronic fatigue Encounter for long-term current use of medication Expected: 03/15/2022, Expires: 05/15/2022 [facility] Work Phone: Comment on above: Expected: 03/15/2022, Expires: 3 Start: 03-15-2022 End: 05-15-2022 Magnesium [Mass/volume] in Serum or Plasma MAGNESIUM BLD Lab Routine Chronic fatigue Encounter for long-term current use of medication Expected: 03/15/2022, Expires: 05/15/2022 [facility] Work Phone: Comment on above: Expected: 03/15/2022, Expires: 3 Start: 03-15-2022 End: 05-15-2022 Thyrotropin [Units/volume] in Serum or Plasma TSH BLD Lab Routine Pure hypercholesterolemia Primary hypertension Chronic fatigue Expected: 03/15/2022, Expires: 05/15/2022 [facility] Work Phone: Comment on above: Expected: 03/15/2022, Expires: Start: 03-15-2022 End: 05-15-2022 Thyroxine (T4) free [Mass/volume] in Serum or Plasma T4 FREE/FREE THYROX Lab Routine Pure hypercholesterolemia Primary hypertension Chronic fatigue Expected: 03/15/2022, Expires: 05/15/2022 [facility] Work Phone: Comment on above: Expected: 03/15/2022, Expires: 3 Start: 03-15-2022 End: 05-15-2022 Triiodothyronine (T3) Free [Mass/volume] in Serum or Plasma T3 FREE BLD Lab Routine Pure hypercholesterolemia Primary hypertension Chronic fatigue Expected: 03/15/2022, Expires: 05/15/2022 [facility] Work Phone: Comment on above: Expected: 03/15/2022, Expires: 3 Start: 03-12-2022 COVID-19 VACCINE (6 - Pfizer series) COVID-19 VACCINE (6 - Pfizer series) [facility] Start: 02-17-2022 ADVANCE DIRECTIVE DISCUSSION ADVANCE DIRECTIVE DISCUSSION [facility] Start: 02-09-2022 End: 04-11-2022 ALBUMIN/CREAT RATIO RND UR ALBUMIN/CREAT RATIO RND UR Lab Routine Controlled type 2 diabetes mellitus without complication, without long-term current use of insulin (HCC) Expected: 02/09/2022 (Approximate), Expires: 04/11/2022 [facility] Work Phone: Comment on above: Expected: 02/09/2022 (Approximate), Expi res: 04/11/2022 Start: 02-09-2022 End: 04-11-2022 CBC panel - Blood by Automated count CBC Lab Routine Controlled type 2 diabetes mellitus without complication, without long-term current use of insulin (HCC) Primary hypertension Expected: 02/09/2022 (Approximate), Expires: 04/11/2022 [facility] Work Phone: Comment on above: Expected: 02/09/2022 (Approximate), Expi res: 04/11/2022 Start: 02-09-2022 End: 04-11-2022 Comprehensive metabolic 2000 panel - Serum or Plasma COMP METABOLIC PANEL Lab Routine Controlled type 2 diabetes mellitus without complication, without long-term current use of insulin (HCC) Primary hypertension Expected: 02/09/2022 (Approximate), Expires: 04/11/2022 [facility] Work Phone: Comment on above: Expected: 02/09/2022 (Approximate), Expi res: 04/11/2022 Start: 02-09-2022 End: 04-11-2022 Hemoglobin A1c in Blood HGB A1C Lab Routine Controlled type 2 diabetes mellitus without complication, without long-term current use of insulin (HCC) Expected: 02/09/2022 (Approximate), Expires: 04/11/2022 [facility] Work Phone: Comment on above: Expected: 02/09/2022 (Approximate), Expi res: 04/11/2022 Start: 02-09-2022 End: 04-11-2022 Lipid 1996 panel - Serum or Plasma LIPID PANEL BASIC Lab Routine Controlled type 2 diabetes mellitus without complication, without long-term current use of insulin (HCC) Pure hypercholesterolemia Expected: 02/09/2022 (Approximate), Expires: 04/11/2022 [facility] Work Phone: Comment on above: Expected: 02/09/2022 (Approximate), Expi res: 04/11/2022 Start: 02-01-2022 Hemoglobin A1c/Hemoglobin.total in Blood HBA1C [facility] Start: 01-01-2022 ANNUAL PCP TEAM CHRONIC DISEASE VISIT ANNUAL PCP TEAM CHRONIC DISEASE VISIT [facility] Start: 10-18-2021 Influenza vaccination [facility] Start: 10-11-2021 Hepatitis B screening URINE ALBUMIN:CREATININE RATIO [facility] Start: 10-11-2021 Hepatitis B surface antibody level LDL CHOLESTEROL [facility] Start: 06-26-2021 3 comp foot exam completed DIABETIC FOOT EXAM [facility] Start: 06-26-2021 Diabetic foot examination Diabetic Foot Exam [facility] Start: 04-13-2021 Hemoglobin A1c/Hemoglobin.total in Blood HBA1C [facility] Start: 02-17-2021 ADVANCE DIRECTIVE DISCUSSION ADVANCE DIRECTIVE DISCUSSION [facility] Start: 10-16-2020 COVID-19 VACCINE (3 - Booster for Pfizer series) COVID-19 VACCINE (3 - Booster for Pfizer series) [facility] Start: 01-19-2020 Glaucoma screening Dilated Retinal Exam [facility] Start: 01-19-2020 Hepatitis C antibody, confirmatory test DILATED RETINAL EXAM [facility] Start: 11-22-2019 Pneumococcal Vaccine: 65+ (3 - PPSV23 or PCV20) Pneumococcal Vaccine: 65+ (3 - PPSV23 or PCV20) [facility] Start: 11-22-2019 Pneumococcal Vaccine: 65+ (3 of 3 - PPSV23 or PCV20) Pneumococcal Vaccine: 65+ (3 of 3 - PPSV23 or PCV20) [facility] Start: 11-22-2019 PNEUMOCOCCAL: 65+ (3 - PPSV23 or PCV20) PNEUMOCOCCAL: 65+ (3 - PPSV23 or PCV20) [facility] Start: 11-22-2019 PNEUMOVAX AGE 65 AND OVER WITH 5YR LOOKBACK (#1) PNEUMOVAX AGE 65 AND OVER WITH 5YR LOOKBACK (#1) [facility] Start: 09-18-2011 SHINGRIX VACCINE (2 of 3) SHINGRIX VACCINE (2 of 3) [facility] Start: 2011 Hepatitis B Vaccine (1 of 3 - Risk 3-dose series) Hepatitis B Vaccine (1 of 3 - Risk 3-dose series) [facility] Start: 2011 RSV Vaccine (1 - 1-dose 60+ series) RSV Vaccine (1 - 1-dose 60+ series) [facility] Start: 2011 RSV Vaccine (1 - Risk 60-74 years 1-dose series) RSV Vaccine (1 - Risk 60-74 years 1-dose series) [facility] Start: 01-14-1996 COLOGUARD (FIT-DNA) COLOGUARD (FIT-DNA) [facility] Start: 01-14-[address] COLONOGRAPHY [facility] Start: 01-14-1996 FECAL OCCULT BLOOD FECAL OCCULT BLOOD [facility] Start: 01-14-1996 Screening for malignant neoplasm of colon [facility] Start: 01-14-1996 SIGMOIDOSCOPY SIGMOIDOSCOPY [facility] Start: 1969 Anxiety Screening Anxiety Screening [facility] Start: 1969 BP CONTROLLED (<130/80) BP CONTROLLED (<130/80) [facility] in Start: 1969 Depression Screening Depression Screening [facility] Start: 1950 ABDOMINAL AORTIC ANEURYSM SCREENING ABDOMINAL AORTIC ANEURYSM SCREENING [facility] Start: 1950 Abdominal aortic aneurysm screening Abdominal Aortic Aneurysm Screening [facility] End: 12-20-2022 Ct thorax w/o contrast material CT CHEST WO IVCON Radiology Routine Abnormal x-ray Prostate cancer (HCC) Pulmonary nodule/lesion, solitary 1 Occurrences starting 11/20/2021 until 12/20/2022 [facility] Work Phone: Comment on above: 1 Occurrences starting 11/20/2021 until 12/20/2022 End: 11-29-2021 Ct thorax w/o contrast material [facility] Work Phone: Comment on above: 1 Occurrences starting 11/29/2021 until 11/29/2021 End: 01-22-2025 MR Brain WO contrast MRI BRAIN WO IVCON Radiology Routine Brain fog Memory loss 1 Occurrences starting 12/24/2023 until 01/22/2025 [facility] Work Phone: Comment on above: 1 Occurrences starting 12/24/2023 until 01/22/2025 End: 01-22-2025 MR Unspecified body region 3D post processing MRI 3D POST PROCESSING Radiology Routine Diplopia Brain fog Memory loss 1 Occurrences starting 12/24/2023 until 01/22/2025 [facility] Comment on above: 1 Occurrences starting 12/24/2023 until 01/22/2025 Patient referral [facility] Work Phone: End: 06-10-2025 US Abdominal Aorta for screening US SCREENING FOR AAA Radiology Routine Screening for abdominal aortic aneurysm 1 Occurrences starting 05/11/2024 until 06/10/2025 [facility] Work Phone: Comment on above: 1 Occurrences starting 05/11/2024 until 06/10/2025 End: 12-31-2024 XR HIP BILATERAL 5V PEL/AP/LAT EACH HIP XR HIP BILATERAL 5V PEL/AP/LAT EACH HIP Radiology Routine Bilateral hip pain 1 Occurrences starting 12/02/2023 until 12/31/2024 [facility] Work Phone: Comment on above: 1 Occurrences starting 12/02/2023 until 12/31/2024 XR HIP BILATERAL 5V PEL/AP/LAT EACH HIP XR HIP BILATERAL 5V PEL/AP/LAT EACH HIP Radiology Routine Bilateral hip pain 12/10/2023 2:46 PM EDT [facility] Work Phone: End: 11-14-2025 XR Lower extremity - bilateral AP W standing XR LEG FRONTAL HIP TO ANKLE MECHANICAL AXIS Radiology Routine Bilateral hip pain 1 Occurrences starting 12/02/2023 until 12/31/2024 [facility] Comment on above: 1 Occurrences starting 12/02/2023 until 12/31/2024 XR Lower extremity - bilateral AP W standing XR LEG FRONTAL HIP TO ANKLE MECHANICAL AXIS Radiology Routine Bilateral hip pain 12/10/2023 2:47 PM EDT [facility] End: 05-19-2025 XR Pelvis and Hip - right AP and Lateral frog XR HIP GENERAL 3V PELV/AP/LAT RIGHT Radiology Routine Status post right hip replacement 1 Occurrences starting 04/19/2024 until 05/19/2025 [facility] Work Phone: Comment on above: 1 Occurrences starting 04/19/2024 until 05/19/2025 XR Pelvis and Hip - right AP and Lateral frog XR HIP GENERAL 3V PELV/AP/LAT RIGHT Radiology Routine Status post right hip replacement 04/22/2024 10:24 AM EST [facility] Work Phone: [facility] Immunizations Immunization Date Immunization Notes Care Provider Selene jim 04-16-2023 pneumococcal conjuga te (PCV20) vaccine, 20 valent (PREVNAR 20) Keren Arce MD Work Phone: [facility] 04-16-2023 pneumococcal Conjuga te, unspecified formulation Keren Arce MD Work Phone: [facility] Work Phone: 01-07-2023 influenza (HD-IIV4) vaccine, age 65+ yr, high dose, quadrivalent, PF (FLUZONE HIGH-DOSE) Keren Arce MD Work Phone: [facility] Work Phone: 01-07-2023 influenza virus vaccine, unspecified formulation Keren Arce MD Work Phone: [facility] 11-10-2021 COVID-19 booster vaccine, age 12+ yr, bivalent (PFIZER-BIONTECH) Immunization [facility] Work Phone: [facility] Work Phone: 11-10-2021 influenza, high-dose , quadrivalent vaccine (FLUZONE HIGH DOSE QUADRIVALENT) Immunization [place] Work Phone: [facility] 11-10-2021 influenza virus vaccine, unspecified formulation Keren Arce MD Work Phone: [facility] 11-23-2020 influenza (aIIV4) vaccine, age 65+ yr, quadrivalent, PF (FLUAD QUAD) Keren Arce MD Work Phone: [facility] 11-23-2020 influenza virus vaccine, unspecified formulation DR BERNY WALTERS MD [facility] 11-23-2020 SARS-CoV-2 mRNA (tozinameran) vaccine DR BERNY WALTERS MD [facility] Comment on above: Result Comment: 2021: [id number] 05-16-2020 SARS-CoV-2 mRNA (tozinameran) vaccine DR BERNY WALTERS MD [facility] 04-25-2020 SARS-CoV-2 mRNA (tozinameran) vaccine DR BERNY WALTERS MD [facility] Comment on above: Result Comment: 2021: [id number] 11-19-2018 influenza virus vaccine, unspecified formulation DR BERNY WALTERS MD [facility] 11-19-2018 influenza, high dose seasonal, preservative-free Ethan Montero MD Work Phone: [facility] Work Phone: 11-12-2017 influenza virus vaccine, unspecified formulation DR BERNY WALTERS MD [facility] 11-12-2017 influenza, high dose seasonal, preservative-free Ethan Montero MD Work Phone: [facility] Work Phone: 12-04-2016 influenza virus vaccine, unspecified formulation DR BERNY WALTERS MD [facility] 12-04-2016 influenza, high dose seasonal, preservative-free Ethan Montero MD Work Phone: [facility] Work Phone: 03-16-2016 pneumococcal conjuga te vaccine, [address] BERNY WALTERS MD [facility] 01-05-2016 influenza virus vaccine, unspecified formulation DR BERNY WALETRS MD [facility] 01-05-2016 influenza, injectabl e, quadrivalent, contains preservative Ethan Montero MD Work Phone: [facility] Work Phone: 11-21-2014 influenza virus vaccine, unspecified formulation DR BERNY WALTERS MD [facility] 11-21-2014 influenza, injectabl e, quadrivalent, contains preservative Ethan Montero MD Work Phone: [facility] 11-21-2014 pneumococcal polysaccharide vaccine, [address] BERNY WALTERS MD [facility] 10-08-2012 tetanus toxoid, redu chucky diphtheria toxoid, and acellular pertussis vaccine, adsorbed Ethan Montero MD Work Phone: [facility] 07-24-2011 zoster vaccine, live Ethan Montero MD Work Phone: [facility] 11-21-2010 influenza virus vaccine, unspecified formulation Ethan Montero MD Work Phone: [facility] Work Phone: 12-10-2004 influenza virus vaccine, unspecified formulation Ethan Montero MD Work Phone: [facility] Work Phone: 02-17-2002 tetanus and diphther ia toxoids, adsorbed, preservative free, for adult use (2 Lf of tetanus toxoid and 2 Lf of diphtheria toxoid) Ethan Montero MD Work Phone: [facility] Work Phone: Payers Date Payer Category Payer Private Health Insurance [id number] 2023 Self-pay [id number] 2015 Medicare (Managed Care) PRIMETIM [id number] 2015 Unknown PRIMETIME PRIMET ALFRED O POS [id number] 2015-Present [phone] [place] [id number] [facility] [id number] 2015 Unknown PRIMETIME PRIMET ALFRED O POS [id number] 2015-Present [phone] [place], [place] [id number] O [id number] 2015 Unknown [id number] 1950 Unknown [id number] 1950 Unknown [id number] 1950 Unknown [id number] 1950 Unknown [id number] 1950 Unknown [id number] 1950 Unknown [id number] 27 Medicare [id number] Unknown [id number] 63 Unknown [id number] 62 Unknown [id number] 62 Unknown [id number] 62 Unknown [id number] 62 Unknown [id number] 62 Social History Date Type Detail Facility Start: 01-23-2021 End: 06-10-2023 Ex-smoker (finding) [facility] Sex Assigned At [facility] Start: 12-18-1974 End: 12-18-2004 History of tobacco use Current smoker [facility] Start: 12-18-1974 End: 12-18-2004 History of tobacco use Cigarette Smoker [facility] Start: 01-01-2021 End: 05-11-2024 Alcohol intake Current drinker of alcohol (finding) [facility] Start: 1950 Sex Assigned At Not on file [facility] Start: 11-02-2019 End: 11-20-2021 Exposure to SARS-CoV-2 (event) Not sure [facility] Start: 12-30-2020 End: 12-31-2022 Tobacco smoking status [facility] Unknown if ever smoked [facility] Start: 1950 Sex Assigned At Male [facility] Start: 07-23-2010 End: 07-26-2022 Cigarettes smoked current (pack per day) - Reported 1 [facility] [facility]: [facility]2010 End: 03-22-2024 Tobacco use and exposure Former smokeless tobacco user [facility] Start: 11-20-2021 Tobacco Comment less than 1/2 pack daily [facility] Start: 07-26-2022 End: 10-02-2022 Tobacco use panel [facility] Adult Depression Screening Assessment 0 [facility] Start: 12-29-2023 Alcohol Comment rarely beer- sociall y [facility] History of tobacco use Chews Tobacco [facility] Has the [employer], or [employer] threatened to shut off services in your home in past 12Mo No [facility] (I/We) worried wheth er (my/our) food would run out before (I/we) got money to buy more. Never true [facility] Start: 06-24-2012 Sex Male (finding) [facility] Medical Equipment Procedure Code Equipment Code Equipment Origin al Text Equipment Identifier Dates Arthroscopy, shoulder ([id number]) Tendon/ligament bone anchor, non-bioabsorbable [id number] FDA Start: 11-13-2022 Arthroscopy, shoulder ([id number]) Tendon/ligament bone anchor, bioabsorbable [id number] FDA Start: 11-13-2022 Test blood sugar (s) 1-2 times daily or as directed. Dx: Type 2 DM - Controlled E11.9 Insulin: No [id number] Start: 10-05-2015 Comment on above: Test blood sugar(s) 1-2 times daily or as directed. Dx: Type 2 DM - Controlled E11.9 Insulin: No [id number], [id number], [id number], [id number], [id number] Start: 10-05-2015 Comment on above: Generic Glucometer - I each 50 strips and lancets. Re: Diabetes mellitus controlled with hypoglycemia. Goals Date Patient Goal Desired Activity /State Functional Status Date Assessment Result Facility 04-09-2024 Are you deaf, or do you have serious difficulty hearing No 04/09/2024 3:15 PM Antonio Mauricio, CHRISTOPH No [facility] 04-09-2024 Are you blind, or do you have serious difficulty seeing, even when wearing glasses No 04/09/2024 3:15 PM Antonio Mauricio, CHRISTOPH No [facility] 04-09-2024 Do you have serious difficulty walking or climbing stairs No 04/09/2024 3:15 PM Antonio Mauricio, CHRISTOPH No [facility] 04-09-2024 Do you have difficul ty dressing or bathing No 04/09/2024 3:15 PM Antonio Mauricio, CHRISTOPH No [facility] 04-09-2024 Because of a physica l, mental, or emotional condition, do you have difficulty doing errands alone such as visiting a physician's office or shopping Yes 04/09/2024 3:15 PM Antonio Mauricio, CHRISTOPH Yes [facility] 09-01-2014 Are you deaf, or do you have serious difficulty hearing No 09/01/2014 8:26 AM Cristiane Quintanilla Ma No [facility] 09-01-2014 Are you blind, or do you have serious difficulty seeing, even when wearing glasses No 09/01/2014 8:26 AM Cristiane Quintanilla Ma No [facility] 09-01-2014 Do you have serious difficulty walking or climbing stairs No 09/01/2014 8:26 AM EDT Cristiane Benites Ma No [facility] 09-01-2014 Do you have difficul ty dressing or bathing No 09/01/2014 8:26 AM EDT Cristiane Benites Ma No [facility] 09-01-2014 Because of a physica l, mental, or emotional condition, do you have difficulty doing errands alone such as visiting a physician's office or shopping No 09/01/2014 8:26 AM EDT Cristiane Benites Ma No [facility] Mental Status Date Assessment Result Facility 04-09-2024 Because of a physica l, mental, or emotional condition, do you have serious difficulty concentrating, remembering, or making decisions No 04/09/2024 3:15 PM Antonio Mauricio, CHRISTOPH No [facility] 11-13-2022 Cognitive function Level Of Cons ciousness Awake;Alert;Appropriate;Fol lows Commands [facility] Work Phone: 09-01-2014 Because of a physica l, mental, or emotional condition, do you have serious difficulty concentrating, remembering, or making decisions No 09/01/2014 8:26 AM EDT Cristiane Benites Ma No [facility] Clinical Notes 06-18-2017 to 07-22-2024 Note Date & Type Note Facility 07-22-2024 Note Exam Date Time Procedure Performing Provider Status 07/22/24 2:01 PM Echocardiogram, Adult - CV MADDIE AJ MD; Auth (Verified) [facility]05-13-2025 Telephone encounter Note* Telephone Encounter - India Christian - 06/29/2024 4:14 PM EDT Patient needs antibiotic for a dental cleaning sent to [facility]. Thank you [facility]05-13-2025 Miscellaneous Notes* Telephone Encounter - India Christian - 06/29/2024 4:14 PM EDT Patient needs antibiotic for a dental cleaning sent to [facility]. [facility] you [facility] Telephone encounter Note * Telephone Encounter - Desiree Orlando LPN - 06/25/2024 1:16 PM EDT Prescription Refill Information The patient has been identified by name and date of : Yes Caregiver verified no other encounters exist for this prescription request: Yes Caregiver confirmed with patient/requestor that no other refills are due, in the near future, with this provider at this time: Yes The last office visit in the department: 05/11/24 Does the patient have a future office visit with this provider/department: Yes 11/23/24 Requested Prescriptions Pending Prescriptions Disp Refills venlafaxine ER (EFFEXOR XR) 75 mg 24 hr capsule 90 capsule 3 Sig: Take 1 capsule by mouth daily at bedtime. Desiree Orlando LPN June 25, 2024 1:17 PM [facility]05-09-2025 Miscellaneous Notes* Telephone Encounter - Desiree Orlando LPN - 06/25/2024 1:16 PM EDT Prescription Refill Information The patient has been identified by name and date of : Yes Caregiver verified no other encounters exist for this prescription request: Yes Caregiver confirmed with patient/requestor that no other refills are due, in the near future, with this provider at this time: Yes The last office visit in the department: 05/11/24 Does the patient have a future office visit with this provider/department: Yes 11/23/24 Requested Prescriptions Pending Prescriptions Disp Refills venlafaxine ER (EFFEXOR XR) 75 mg 24 hr capsule 90 capsule 3 Sig: Take 1 capsule by mouth daily at bedtime. Desiree Orlando LPN June 25, 2024 1:17 PM * Telephone Encounter - Kera Berman - 06/25/2024 12:45 PM EDT Pt requesting refill for Effexor (not on list) MARQUISE 05/11/24 11/23/24 Please advise, Thank you [facility] Telephone encounter Note * Telephone Encounter - Kera Berman - 06/25/2024 12:45 PM EDT Pt requesting refill for Effexor (not on list) MARQUISE 05/11/24 11/23/24 Please advise, Thank you [facility]04-11-2025 Telephone encounter Note* Telephone Encounter - Tamera Mahoney MA - 05/28/2024 12:39 PM EDT Pt and notified. Tamera Mahoney MA [facility]04-11-2025 Miscellaneous Notes* Telephone Encounter - Tamera Mahoney MA - 05/28/2024 12:39 PM EDT Pt and notified. Tamera Mahoney MA * Telephone Encounter - Rashid Grimes APRN.CNS - 05/28/2024 10:45 AM EDT He was seen by Dr. Maddox his orthopedic surgeon on . He recommended therapy and home exercises, this should help build strength. If he is not eating and drinking normally this can also make him feel weak can cause weight loss. Recommend 3 meals a day, if not not consuming consider meal replacement such as Boost. Drink 64 ounces of fluid daily. He reported not taking omeprazole and famotidine at his office visit for 05/26/2024, would recommend resuming omeprazole twice daily if he has stopped. Resume famotidine if omeprazole is not sufficientto help with abdominal pain. If he is noting constipation recommend MiraLAX as previously discussed. * Telephone Encounter - Leilain Mathis RN - 05/28/2024 8:20 AM EDT Patient's calls and states that patient has not had any appetite since surgery. Patient has lost around 20 pounds since surgery. is worried that patient is not as strong as what he was prior to surgery. asking for recommendations on building patient's strength? Patient continues with abdominal pain. Patient did see general surgery and has a colonoscopy/EGD scheduled for July. is asking if any of patient's medications could be causing abdominal pain? Please review and advise, Leilani Mathis RN documented [facility] Telephone encounter Note * Telephone Encounter - Rashid Grimes APRN.CNS - 05/28/2024 10:45 AM EDT He was seen by Dr. Maddox his orthopedic surgeon on . He recommended therapy and home exercises, this should help build strength. If he is not eating and drinking normally this can also make him feel weak can cause weight loss. Recommend 3 meals a day, if not not consuming consider meal replacement such as Boost. Drink 64 ounces of fluid daily. He reported not taking omeprazole and famotidine at his office visit for 05/26/2024, would recommend resuming omeprazole twice daily if he has stopped. Resume famotidine if omeprazole is not sufficientto help with abdominal pain. If he is noting constipation recommend MiraLAX as previously discussed. [facility]04-11-2025 Telephone encounter Note* Telephone Encounter - Leilani Mathis RN - 05/28/2024 8:20 AM EDT Patient's calls and states that patient has not had any appetite since surgery. Patient has lost around 20 pounds since surgery. is worried that patient is not as strong as what he was prior to surgery. asking for recommendations on building patient's strength? Patient continues with abdominal pain. Patient did see general surgery and has a colonoscopy/EGD scheduled for July. is asking if any of patient's medications could be causing abdominal pain? Please review and advise, Leilani Mathis RN [facility]04-09-2025 History of Present illness Narrative* Nakul Maddox MD - 05/26/2024 10:20 AM EDT Post-op Office Visit Destiney Ocampo 74 year old May 26, 2024 7:48 AM History: Destiney Ocampo Is now 6 week s/p right ABMS INES Post-operative course has been without complication. no readmission/complications Subjective: Patient reports mild pain mostly at night . Overall is doing well. no ambulatory aid no opioid pain medication Objective: Ambulates with no device Incision well-approximated, no drainage, normal michelle-incisional erythema Arcs of motion at hip are comfortable and fluid Distally DP/PT palpable Distally S/S/SP/DP/T intact at baseline Distally DF/EHL/PF/KE intact at baseline Negative teresita/calf tenderness Xrays: No new today Assessment and Plan: Destiney Ocampo Is here for a second post-op appointment, overall doing well -continued ice, rest, and use of non-narcotic analgesia as needed -wean off ambulatory aids -discussed home exercises and therapy -WBAT on operative extremity -will see back at month appointment for clinical exam and post-op xrays--can see earlier if needed -discussed red flag symptoms of acutely increasing pain, new erythema, new swelling, drainage, shortness of breath Nakul Maddox MD documented in [facility]04-[facility]-2025 NoteHNO ID: [id number] Author: NAKUL MADDOX MD Service: ? Author Type: Physician Type: Progress Notes Filed: 05/26/2024 10:23 Note Text: Post-op Office Visit Destiney Ocampo 74 year old May 26, 2024 7:48 AM History: Destiney Ocampo Is now 6 week s/p right ABMS INES Post-operative course has been without complication. no readmission/complications Subjective: Patient reports mild pain mostly at night . Overall is doing well. no ambulatory aid no opioid pain medication Objective: Ambulates with no device Incision well-approximated, no drainage, normal michelle-incisional erythema Arcs of motion at hip are comfortable and fluid Distally DP/PT palpable Distally S/S/SP/DP/T intact at baseline Distally DF/EHL/PF/KE intact at baseline Negative teresita/calf tenderness Xrays: No new today Assessment and Plan: Destiney Ocampo Is here for a second post-op appointment, overall doing well -continued ice, rest, and use of non-narcotic analgesia as needed -wean off ambulatory aids -discussed home exercises and therapy -WBAT on operative extremity -will see back at month appointment for clinical exam and post-op xrays--can see earlier if needed -discussed red flag symptoms of acutely increasing pain, new erythema, new swelling, drainage, shortness of breath Nakul Maddox, [facility]04-08-2025 Telephone encounter Note* Telephone Encounter - Gogo Stinson LPN - 05/25/2024 1:29 PM EDT Images from the original note were not included. Note from payer: TOREY Case: [id number], Status: Denied. Notification: Completed. Payer: [employer] Electronic appeal: Not supported View History Notes Time User Attachment Attachment received from payer. 05/25/2024 1:22 PM Cchs, Rx Priorauth In Document Medication Being Authorized Saccharomyces boulardii (FLORASTOR) 250 mg capsule Take 1 capsule by mouth two times a day. Dispense: 60 capsule Refills: 2 Start: 05/18/2024 End: 08/16/2024 Class: Normal This order has been released to its destination. To be filled at: [facility] [address] [place] [address] [address] [facility] - [phone] [facility]04-08-2025 Miscellaneous Notes* Telephone Encounter - Gogo Stinson LPN - 05/25/2024 1:29 PM EDT Images from the original note were not included. Note from payer: TOREY Case: [id number], Status: Denied. Notification: Completed. Payer: [place] Electronic appeal: Not supported View History Notes Time User Attachment Attachment received from payer. 05/25/2024 1:22 PM Cchs, Rx Priorauth In Document Medication Being Authorized Saccharomyces boulardii (FLORASTOR) 250 mg capsule Take 1 capsule by mouth two times a day. Dispense: 60 capsule Refills: 2 Start: 05/18/2024 End: 08/16/2024 Class: Normal This order has been released to its destination. To be filled at: [facility] [address] - [place] [address] [address] [facility] - [phone] documented in [facility] encounter[facility]04-01-2025 Telephone encounter Note * Telephone Encounter - Iza Colon LPN - 05/18/2024 4:21 PM EDT Pt notified of provider message. Pt reports he is not having an issue with constipation but does need the probiotic. Iza Colon LPN [facility]04-01-2025 Miscellaneous Notes* Telephone Encounter - Iza Colon LPN - 05/18/2024 4:21 PM EDT Pt notified of provider message. Pt reports he is not having an issue with constipation but does need the probiotic. Iza Colon LPN * Telephone Encounter - Juana Jenkins LPN - 05/18/2024 1:40 PM EDT No answer. Left message for patient to call office and ask to speak to a nurse regarding current treatment of stomach issures * Telephone Encounter - Rashid Grimes APRN.CNS - 05/18/2024 11:58 AM EDT If any constipation and current daily MiraLAX is not helping enough can increase to twice daily dosing. Will send probiotic to pharmacy. * Telephone Encounter - Sasha Kamara RN - 05/18/2024 9:42 AM EDT Patient calling and states he saw Rashid العراقي last week and discussed his abdominal discomfort. Reports he has been taking the Pepcid as ordered but no improvement yet. Denies worsening sx's. Feels that he is having gastritis possibly. States he has been on recent antibiotic treatment and the medication has worsened his stomach issues. States he does not plan to see General Surgery until his hip heals more, as he is 6 weeks post left hip arthroplasty. Denies nausea, vomiting, fever. No changes in bowel function. 1) Pt asking if Rashid would send probiotic order to his pharmacy, if she feels this would help. 2) Asking if Rashid العراقي would recommend anything else at this time. Sasha Kamara RN documented [facility] encounter[facility]04-[facility]-2025 Telephone encounter Note * Telephone Encounter - Juana Jenkins LPN - 05/18/2024 1:40 PM EDT No answer. Left message for patient to call office and ask to speak to a nurse regarding current treatment of stomach issures [facility]04-01-2025 Telephone encounter Note* Telephone Encounter - Rashid Grimes APRN.CNS - 05/18/2024 11:58 AM EDT If any constipation and current daily MiraLAX is not helping enough can increase to twice daily dosing. Will send probiotic to pharmacy. [facility]04-01-2025 Telephone encounter Note* Telephone Encounter - Sasha Kamara RN - 05/18/2024 9:42 AM EDT Patient calling and states he saw Rashid العراقي last week and discussed his abdominal discomfort. Reports he has been taking the Pepcid as ordered but no improvement yet. Denies worsening sx's. Feels that he is having gastritis possibly. States he has been on recent antibiotic treatment and the medication has worsened his stomach issues. States he does not plan to see General Surgery until his hip heals more, as he is 6 weeks post left hip arthroplasty. Denies nausea, vomiting, fever. No changes in bowel function. 1) Pt asking if Rashid would send probiotic order to his pharmacy, if she feels this would help. 2) Asking if Rashid العراقي would recommend anything else at this time. Sasha Kamara RN [facility]03-25-2025 Instructions* Patient Instructions* Rashid Grimes APRN.CNS - 05/11/2024 2:16 PM EDT - Take Omeprazole to twice daily to manage abdominal pain and acid reflux. - Take Famotidine daily for one month to reduce stomach acid. May continue on if needed - Monitor abdominal pain and report any changes or worsening symptoms. - Continue taking Miralax as needed to maintain regular bowel movements. - Continue monitoring blood sugar levels daily or every other day before breakfast. - Follow up with Dr. Maddox as scheduled. - Consider completing a colonoscopy, possibly and EGD if abdominal pain does not improve once you have fully recovered from hip surgery. - Consult with a general surgeon if abdominal pain persists - Refills for magnesium and cholesterol medication sent to [facility] pharmacy. Consider completing the neuropsychiatric testing for in-depth testing of your memory and executive function documented in this encounterEast [facility] Hospital03-25-2025 NoteHNO ID: [id number] Author: RASHID GRIMES APRN.ELECTRIC LOCOMOTIVE CRANE OPERATOR Service: ? Author Type: Nurse Specialist Type: Progress Notes Filed: 05/11/2024 14:33 Note Text: Subjective Patient ID: Destiney is a 74 year old male who presents for F/U 6 Month. HPI Presents with , she helps with HPI. Destiney Ocampo is s/p left total hip arthroplsty Dr. Maddox 04/08/2024. Discharge to home with home health care 04/09/2024. Abdominal Pain: - Intermittent abdominal pain, described as a pinch in the soft part of the left upper abdomen, worse when lying on the left side. - Pain present before hip surgery, but worsened postoperatively. - Can elicit pain by palpating the area. - Denies hematochezia, melena, nausea, or emesis. - Occasional heartburn, approximately once a week, managed with omeprazole BID. - Recent blood work ordered by Dr. Naranjo urologist and reported to abdominal pain which he thought ws constipation related; amylase and lipase levels were normal. Hip Surgery Recovery: - Underwent hip surgery 5 weeks ago. - Recovery described as average, with ongoing pain at the surgical site. - Mobility improving; now using a cane. - No drainage from the surgical site. - Taking Advil and Aleve for pain management, ensuring intake with food. - Upcoming follow-up appointment with Dr. Maddox in about two weeks. Constipation: - Chronic constipation managed with Miralax, resulting in bowel movements every other day. - If Miralax is not taken, bowel movements may be delayed up to four days. Diabetes Mellitus: - Monitoring blood glucose levels at home daily or every other day before breakfast. - Recent blood glucose reading was 123 mg/dL. - Reports higher readings if consuming sweets before bedtime. Hyperlipidemia: - Managed with medication; unsure if current supply is sufficient. Memory Loss: - Reports persistent foggy feeling and difficulty with memory recall. - Extensive workup including CT, MRI, and evaluation at [facility] and [facility]. 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 - Neurology recommended neuropsychiatric testing, but Destiney declined further testing. DIABETES MELLITUS: Since our last visit he denies excessive thirst or increased frequency of urination, chest pain or dyspnea , numbness, tingling or pain in extremities, new or unusual visual symptoms, low sugar/hypoglycemic reactions, weight loss/gain, lightheadedness/dizziness, and bowel changes/loose stools. . Patient's last HgA1C was Hemoglobin A1C (%) Date Value 03/22/2024 6.9 01/30/2024 8.2 10/11/2020 7.5 02/11/2018 6.2 Hemoglobin A1C (POCT) (%) Date Value 06/26/2020 7.0 02/24/2019 7.1 ) Cardiomyopathy: Followed at [facility] Gastrointestinal: (+) left-sided abdominal pain, (+) occasional heartburn, (+) constipation, (-) nausea, (-) vomiting, (-) melena, (-) hematochezia Musculoskeletal: (+) hip pain Skin: (-) wound drainage Neurological: (+) memory impairment, (+) brain fog, (+) daytime sleepiness Objective BP 109/71 Pulse 75 Resp 16 Wt 93 kg (205 lb 0.4 oz) BMI 33.09 kg/m? Physical Exam Vitals and nursing note reviewed. Constitutional: Appearance: Normal appearance. HENT: Head: Normocephalic and atraumatic. Eyes: Conjunctiva/sclera: Conjunctivae normal. Neck: Thyroid: No thyromegaly. Vascular: Normal carotid pulses. No carotid bruit or JVD. Cardiovascular: Rate and Rhythm: Normal rate and regular rhythm. Pulses: Carotid pulses are 2+ on the right side and 2+ on the left side. Radial pulses are 2+ on the right side. Heart sounds: Normal heart sounds. Pulmonary: Effort: Pulmonary effort is normal. Breath sounds: Normal breath sounds. Abdominal: General: Bowel sounds are normal. Palpations: Abdomen is soft. Tenderness: There is abdominal tenderness (mild LUQ). Musculoskeletal: Right lower leg: No edema. Left lower leg: No edema. Skin: General: Skin is warm and dry. Neurological: General: No focal deficit present. Mental Status: He is alert. Latest Ref Rng 03/22/2024 05/07/2024 WBC 3.70 - 11.00 k/uL 8.32 9.58 RBC 4.20 - 6.00 m/uL 5.43 5.06 Hemoglobin 13.0 - 17.0 g/dL 14.7 13.6 Hematocrit 39.0 - 51.0 % 45.9 42.9 MCV 80.0 - 100.0 fL 84.5 84.8 MCH 26.0 - 34.0 pg 27.1 26.9 MCHC 30.5 - 36.0 g/dL 32.0 31.7 RDW-CV 11.5 - 15.0 % 13.1 13.8 Platelet Count 150 - 400 k/uL 144 (L) 196 MPV 9.0 - 12.7 fL 11.6 11.4 Neut% % 58.3 Abs Neut (ANC) 1.45 - 7.50 k/uL 4.85 Lymph% % 29.1 Abs Lymph 1.00 - 4.00 k/uL 2.42 O'Brien% % 6.6 Abs O'Brien <0.87 k/uL 0.55 Eosin% % 5.0 Abs Eosin <0.46 k/uL 0.42 Baso% % 0.6 Abs Baso <0.11 k/uL 0.05 Immature Gran % % 0.4 IMMATURE GRANS (ABS) <0.10 k/uL 0.03 NRBC /100 WBC 0.0 Absolute nRBC <0.01 k/uL <0.01 <0.01 DTYPE Auto Protein, Total 6.3 - 8.0 g/dL 6.6 7.2 Albumin 3.9 - 4.9 g/dL 4.3 4.4 Calcium 8.5 - 10.2 mg/dL 9.6 10.0 Bilirubin, Total 0.2 - 1. (more content not included)...[facility]03-25-2025 History of Present illness Narrative* Rashid Grimes APRN.ELECTRIC LOCOMOTIVE CRANE OPERATOR - 05/11/2024 1:41 PM EDT Subjective Patient ID: Destiney is a 74 year old male who presents for F/U 6 Month. HPI Presents with , she helps with HPI. Destiney Ocampo is s/p left total hip arthroplsty Dr. Maddox 04/08/2024. Discharge to home with homehealth care 04/09/2024. Abdominal Pain: - Intermittent abdominal pain, described as a pinch in the soft part of the left upper abdomen, worse when lying on the left side. - Pain present before hip surgery, but worsened postoperatively. - Can elicit pain by palpating the area. - Denies hematochezia, melena, nausea, or emesis. - Occasional heartburn, approximately once a week, managed with omeprazole BID. - Recent blood work ordered by Dr. Naranjo urologist and reported to abdominal pain which he thoughtws constipation related; amylase and lipase levels were normal. Hip Surgery Recovery: - Underwent hip surgery 5 weeks ago. - Recovery described as average, with ongoing pain at the surgical site. - Mobility improving; now using a cane. - No drainage from the surgical site. - Taking Advil and Aleve for pain management, ensuring intake with food. - Upcoming follow-up appointment with Dr. Maddox in about two weeks. Constipation: - Chronic constipation managed with Miralax, resulting in bowel movements every other day. - If Miralax is not taken, bowel movements may be delayed up to four days. Diabetes Mellitus: - Monitoring blood glucose levels at home daily or every other day before breakfast. - Recent blood glucose reading was 123 mg/dL. - Reports higher readings if consuming sweets before bedtime. Hyperlipidemia: - Managed with medication; unsure if current supply is sufficient. Memory Loss: - Reports persistent foggy feeling and difficulty with memory recall. - Extensive workup including CT, MRI, and evaluation at [facility] and [facility]. 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 - Neurology recommended neuropsychiatric testing, but Destiney declined further testing. DIABETES MELLITUS: Since our last visit he denies excessive thirst or increased frequency of urination, chest pain or dyspnea , numbness, tingling or pain in extremities, new or unusual visual symptoms, low sugar/hypoglycemic reactions, weight loss/gain, lightheadedness/dizziness, and bowel changes/loose stools. . Patient's last HgA1C was Hemoglobin A1C (%) Date Value 03/22/2024 6.9 01/30/2024 8.2 10/11/2020 7.5 02/11/2018 6.2 Hemoglobin A1C (POCT) (%) Date Value 06/26/2020 7.0 02/24/2019 7.1 ) Cardiomyopathy: Followed at [facility] Gastrointestinal: (+) left-sided abdominal pain, (+) occasional heartburn, (+) constipation, (-) nausea, (-) vomiting, (-) melena, (-) hematochezia Musculoskeletal: (+) hip pain Skin: (-) wound drainage Neurological: (+) memory impairment, (+) brain fog, (+) daytime sleepiness Objective BP 109/71 Pulse 75 Resp 16 Wt 93 kg (205 lb 0.4 oz) BMI 33.09 kg/m Physical Exam Vitals and nursing note reviewed. Constitutional: Appearance: Normal appearance. HENT: Head: Normocephalic and atraumatic. Eyes: Conjunctiva/sclera: Conjunctivae normal. Neck: Thyroid: No thyromegaly. Vascular: Normal carotid pulses. No carotid bruit or JVD. Cardiovascular: Rate and Rhythm: Normal rate and regular rhythm. Pulses: Carotid pulses are 2+ on the right side and 2+ on the left side. Radial pulses are 2+ on the right side. Heart sounds: Normal heart sounds. Pulmonary: Effort: Pulmonary effort is normal. Breath sounds: Normal breath sounds. Abdominal: General: Bowel sounds are normal. Palpations: Abdomen is soft. Tenderness: There is abdominal tenderness (mild LUQ). Musculoskeletal: Right lower leg: No edema. Left lower leg: No edema. Skin: General: Skin is warm and dry. Neurological: General: No focal deficit present. Mental Status: He is alert. Latest Ref Rng 03/22/2024 05/07/2024 WBC 3.70 - 11.00 k/uL 8.32 9.58 RBC 4.20 - 6.00 m/uL 5.43 5.06 Hemoglobin 13.0 - 17.0 g/dL 14.7 13.6 Hematocrit 39.0 - 51.0 % 45.9 42.9 MCV 80.0 - 100.0 fL 84.5 84.8 MCH 26.0 - 34.0 pg 27.1 26.9 MCHC 30.5 - 36.0 g/dL 32.0 31.7 RDW-CV 11.5 - 15.0 % 13.1 13.8 Platelet Count 150 - 400 k/uL 144 (L) 196 MPV 9.0 - 12.7 fL 11.6 11.4 Neut% % 58.3 Abs Neut (ANC) 1.45 - 7.50 k/uL 4.85 Lymph% % 29.1 Abs Lymph 1.00 - 4.00 k/uL 2.42 O'Brien% % 6.6 Abs O'Brien <0.87 k/uL 0.55 Eosin% % 5.0 Abs Eosin <0.46 k/uL 0.42 Baso% % 0.6 Abs Baso <0.11 k/uL 0.05 Immature Gran % % 0.4 IMMATURE GRANS (ABS) <0.10 k/uL 0.03 NRBC /100 WBC 0.0 Absolute nRBC <0.01 k/uL <0.01 <0.01 DTYPE Auto Protein, Total 6.3 - 8.0 g/dL 6.6 7.2 Albumin 3.9 - 4.9 g/dL 4.3 4.4 Calcium 8.5 - 10.2 mg/dL 9.6 10.0 Bilirubin, Total 0.2 - 1.3 mg/dL 1.1 0.7 Alkaline Phosphatase 38 - 113 U/L 79 118 (H) AST 14 - 40 U/L 15 13 (L) ALT 10 - 54 U/L 14 11 Glucose 74 - 99 mg/dL 107 (H) 126 (H) BUN 9 - 24 mg/dL 17 15 Creatinine 0.73 - 1.22 mg/dL 0.66 (L) 0.69 (L) Sodium 136 - 144 mmol/L 139 143 Potassium 3.7 - 5.1 mmol/L 5.0 4.6 Chloride 98 - 107 mmol/L 105 103 CO2 22 - 30 mmol/L 27 28 Anion Gap 8 - 15 mmol/L 7 (L) 12 eGFR >=60 mL/min/1.73m 99 98 Cholesterol, Total <200 mg/dL 138 Triglyceride <150 mg/dL 80 HDL Cholesterol >39 mg/dL 36 (L) Non HDL Cholesterol <130 mg/dL 102 Fasting Time hrs 18 VLDL Cholesterol <30 mg/dL 16 TC:HDL Ratio <5.10 3.83 LDL Cholesterol <100 mg/dL 86 LDL:HDL Ratio <2.54 2.39 Hemoglobin A1C 4.3 - 5.6 % 6.9 (H) Estimated Average Glucose mg/dL 151 Magnesium 1.7 - 2.3 mg/dL 1.7 Amylase 30 - 104 U/L 43 Lipase 16 - 61 U/L 21 ASSESSMENT/PLAN: 1. Status post total replacement of hip, unspecified laterality - ICD9: V43.64, ICD10: Z96.649 (primary diagnosis) Recovering well, has upcoming appointment with Dr. Maddox 2. Controlled type 2 diabetes mellitus without complication, without long-term current use of insulin (HCC) - ICD9: 250.00, ICD10: E11.9 Controlled, continue current treatment unchanged. - Continue current medications - Blood glucose monitoring on a once daily schedule - Counseled on healthy diet and regular exercise - Discussed need for and benefit of weight loss. BMI 33.09 kg/(m^2) 3. Elevated liver enzymes - ICD9: 790.5, ICD10: R74.8 Recommend a recheck fasting post op - COMPREHENSIVE METABOLIC PANEL 4. Left upper quadrant abdominal pain - ICD9: 789.02, ICD10: R10.12 - Begin treatment with Pepcid 20 mg QD - CONSULT TO GENERAL SURGERY, may need EGD if not improving, due for colonoscopy for colon cancer screening 5. Hoarseness - ICD9: 784.42, ICD10: R49.0 - FAMOTIDINE 20 MG TABLET 6. Memory difficulties - ICD9: 780.93, ICD10: R41.3 He has undergone imaging studies and been seen in neurology, neuropsychiatric testing was recommended but declines at this time. He does have a follow-up appointment with neurology 7. Hypomagnesemia - ICD9: 275.2, ICD10: E83.42 stable on current treatment - MAGNESIUM 250 MG TABLET 8. Encounter for immunization - ICD9: V03.89, ICD10: Z23 - [employer] INSTRUCTIONS - PFIZER-BIONTECH COVID-19 VACCINE AGE 12+ YR (COMIRNATY) - RSV PRINTED PHARMACY INSTRUCTIONS 11. Screening for colon cancer - ICD9: V76.51, ICD10: Z12.11 Per chart review last colonoscopy was with Dr. Stringer 06/12/2017 and he advised follow up could be in 7-10 years. - COLONOSCOPY SCREENING - CONSULT TO GENERAL SURGERY 12. Pure hypercholesterolemia - ICD9: 272.0, ICD10: E78.00 .Recommend a plant based diet such as Mediterranean diet with plenty of vegetables, fruits,whole grains, fish, chicken, turkey or plant proteins and routine exercise such as walking - ATORVASTATIN 40 MG TABLET 6 mo follow up PCP with rohan Grimes APRN.ELECTRIC LOCOMOTIVE CRANE OPERATOR Other orders atorvastatin (LIPITOR) 40 mg tablet; Take 1 tablet by mouth once daily. ADVANCE CARE PLAN DISCUSSION Medical Decision Making: Problems: Moderate: 2+ stable chronic illnesses Data: Unique test result(s) reviewed: 3+ Risk: Moderate: Drug management Medical Decision Making Level: 4 - Moderate [facility] Telephone encounter Note * Telephone Encounter - Katie Carolina RN - 05/07/2024 10:27 AM EDT Patient called with concern that he is still having pain and swelling from hip replacement 4 weeks ago. Explained it is not unusual to experience these symptoms for 3-6 months. He had been comparing with his friends in conversation and was told he should be fine at this time. Again explained this is normal, people heal differently. Advised to continue small walks, do not increase activity at this time, rest, ice and elevate. Suggested taking NSAID for the next week, if ithelps continue for another week until he sees Dr Maddox for his 6 week f/u. Can discuss further at that time. Patient verbalized understanding. [facility] Work Phone: 1(605) 587-126403-21-2025 Miscellaneous Notes* Telephone Encounter - Katie Carolina RN - 05/07/2024 10:27 AM EDT Patient called with concern that he is still having pain and swelling from hip replacement 4 weeks ago. Explained it is not unusual to experience these symptoms for 3-6 months. He had been comparing with his friends in conversation and was told he should be fine at this time. Again explained this is normal, people heal differently. Advised to continue small walks, do not increase activity at this time, rest, ice and elevate. Suggested taking NSAID for the next week, if ithelps continue for another week until he sees Dr Madodx for his 6 week f/u. Can discuss further at that time. Patient verbalized understanding. documented [facility] Telephone encounter Note * Telephone Encounter - Juana Jenkins LPN - 05/07/2024 9:27 AM EDT Patient notified that labs have been placed [facility]03-21-2025 Miscellaneous Notes* Telephone Encounter - Juana Jenkins LPN - 05/07/2024 9:27 AM EDT Patient notified that labs have been placed * Telephone Encounter - Rashid Grimes APRN.CNS - 05/07/2024 9:16 AM EDT ok * Telephone Encounter - Hannah Cotton RN - 05/07/2024 9:02 AM EDT Spouse calls to check on status of labs that were requested. Notified pending review. Spouse wants them available for 6 month follow up appt with provider on 05/11/2024. Patient is seeing Rashid Grimes. Pat requesting to be sent to Rashid for review and orders to be placed. Hannah Cotton RN * Telephone Encounter - Juana Jenkins LPN - 05/06/2024 2:17 PM EDT Labs pending if appropriate. * Telephone Encounter - Mansi Hardy - 05/06/2024 10:31 AM EDT Pt's came in and stated that patients urologist Dr. Youssef wanted him to have labs.. indicated that she would perfer if Dr. Arce placed labs? CBC, CMP, Amylase, Lipase. Please advise documented [facility] encounter[facility] Telephone encounter Note * Telephone Encounter - Rashid Grimes APRN.CNS - 05/07/2024 9:16 AM EDT ok [facility]03-21-2025 Telephone encounter Note* Telephone Encounter - Hannah Cotton RN - 05/07/2024 9:02 AM EDT Spouse calls to check on status of labs that were requested. Notified pending review. Spouse wants them available for 6 month follow up appt with provider on 05/11/2024. Patient is seeing Rashid Grimes. Pat requesting to be sent to Rashid for review and orders to be placed. Hannah Cotton RN [facility]03-20-2025 Telephone encounter Note* Telephone Encounter - Juana Jenkins LPN - 05/06/2024 2:17 PM EDT Labs pending if appropriate. [facility]03-20-2025 Telephone encounter Note* Telephone Encounter - Mansi Hardy - 05/06/2024 10:31 AM EDT Pt's came in and stated that patients urologist Dr. Youssef wanted him to have labs.. indicated that she would perfer if Dr. Arce placed labs? CBC, CMP, Amylase, Lipase. Please advise [facility]03-12-2025 Miscellaneous Notes* PT DISCHARGE - Gwen Choudhury, PT - 04/28/2024 3:41 PM EDT SITUATION: spouse present during today's visit. patient and caregiver reports the following since the last homecare visit: medications/allergies--no changes, no fall. patient reports hestill feels weak all over. He reports that he has used the cane very little as he doesn't trust himself BACKGROUND: Diagnoses (reason for Home Care): RTHR Weight Bearing/Precaution Changes: WBAT ASSESSMENT: Focus of visit cane training w/ visual and verbal cues for correct use. Steps with caneProgression to tala standing exercises for sttength and balance. Instr to increase reps from 10 to 15 and then 20 Physical therapy discharged: goals achieved. Functional performance at discharge - bed mobility independent, transfers independent, ambulation independent and stairs supervision. Plan of care, goals, and discharge reviewed and agreed upon with patient and/or caregiver. RECOMMENDATION: Patient discharged from home health services. Instructions to include:home exercise program as directed See intervention summary for intervention/education details. [facility] Patient's home Note* PT DISCHARGE - Gwen Fox, PT - 04/28/2024 3:41 PM EDT SITUATION: spouse present during today's visit. patient and caregiver reports the following since the last homecare visit: medications/allergies--no changes, no fall. patient reports hestill feels weak all over. He reports that he has used the cane very little as he doesn't trust himself BACKGROUND: Diagnoses (reason for Home Care): RTHR Weight Bearing/Precaution Changes: WBAT ASSESSMENT: Focus of visit cane training w/ visual and verbal cues for correct use. Steps with caneProgression to tala standing exercises for sttength and balance. Instr to increase reps from 10 to 15 and then 20 Physical therapy discharged: goals achieved. Functional performance at discharge - bed mobility independent, transfers independent, ambulation independent and stairs supervision. Plan of care, goals, and discharge reviewed and agreed upon with patient and/or caregiver. RECOMMENDATION: Patient discharged from home health services. Instructions to include:home exercise program as directed See intervention summary for intervention/education details. [facility] Work Phone: 1(449) 407-400303-07-2025 Miscellaneous Notes* PT ROUTINE/REASSESSMENT/RECERT/CASE MGMT - Ashley Lanier PTA - 04/23/2024 3:07 PM EST SITUATION: spouse present during today's visit. patient and caregiver reports the following since the last homecare visit: medications/allergies--no changes, no fall. patient reports he is tired from Dr sanz yesterday. Appointment went good, able to do WBAT now. BACKGROUND: Diagnoses (reason for Home Care): RTHR Weight Bearing/Precaution Changes: WBAT discussed w/ GALO Hidalgo prior to todays visit. POC was updated ASSESSMENT: Focus of visit cane training w/ visual and verbal cues for correct use. Progression to tala standingexercises for sttength and balance. Issued NOMNC Plan of care, goals, and visit frequency reviewed and agreed upon with patient and/or caregiver. Current Discharge Plan: independent with home exercise program Anticipate discharge by 04/28/24 RECOMMENDATION: Next visit to focus on PT to see for DC See intervention summary for intervention/education details. documented in [facility] Patient's home Note* PT ROUTINE/REASSESSMENT/RECERT/CASE MGMT - Ashley Lanier PTA - 04/23/2024 3:07 PM EST SITUATION: spouse present during today's visit. patient and caregiver reports the following since the last homecare visit: medications/allergies--no changes, no fall. patient reports he is tired from Dr sanz yesterday. Appointment went good, able to do WBAT now. BACKGROUND: Diagnoses (reason for Home Care): RTHR Weight Bearing/Precaution Changes: WBAT discussed w/ Gwen PT prior to todays visit. POC was updated ASSESSMENT: Focus of visit cane training w/ visual and verbal cues for correct use. Progression to taal standingexercises for sttength and balance. Issued NOMNC Plan of care, goals, and visit frequency reviewed and agreed upon with patient and/or caregiver. Current Discharge Plan: independent with home exercise program Anticipate discharge by 04/28/24 RECOMMENDATION: Next visit to focus on PT to see for DC See intervention summary for intervention/education details. [facility] Work Phone: [phone]) 921-222403-06-2025 NoteHNO ID: [id number] Author: KATIE CAROLINA RN Service: ? Author Type: Registered Nurse Type: Progress Notes Filed: 04/22/2024 11:20 Note Text: Post-op Office Visit Destiney Ocampo 74 year old April 22, 2024 10:38 AM Surgery Date: 04/08/24 History: Destiney Ocampo Is now 2 weeks out from right Anterior-Based INES. Post-operative course has been without complication. No readmission/complications Subjective: Patient reports 4/10 pain. Overall is doing well. + ambulatory aid Oxycodone opioid pain medication Objective: Ambulates with walker. Incision well-approximated, no drainage, normal michelle-incisional erythema Full ROM not tested do to early post-operative period, but smaller arcs of motion fluid and comfortable Distally DP/PT palpable Distally S/S/SP/DP/T intact at baseline Distally DF/EHL/PF intact at baseline Negative teresita/calf tenderness Xrays: Well aligned total hip replacement in appropriate position with no evidence of loosening. Assessment and Plan: Destiney Ocampo is here for a first post-op appointment, overall doing well. Patient is accompanied by . -continued ice, rest, and use of non-narcotic analgesia as needed -wean off ambulatory aids -discussed home exercises and therapy -WBAT on operative extremity -reinforced posterior precautions through 8 weeks: avoid extremes of flexion, internal rotation, and adduction -continue ankle pumps and dvt ppx through 4 weeks -discussed driving requirement: 4 weeks post-op, off narcotic pain medication, adequate brake time -will see back at 6 week appointment for clinical exam -discussed red flag symptoms of acutely increasing pain, new erythema, new swelling, drainage, shortness of breath Katie Carolina RN (Under Nakul Maddox MD) [facility] History of Present illness Narrative* Katie Carolina, CHRISTOPH - 04/22/2024 10:38 AM EST Post-op Office Visit Destiney Ocampo 74 year old April 22, 2024 10:38 AM Surgery Date: 04/08/24 History: Destiney Ocampo Is now 2 weeks out from right Anterior-Based INES. Post-operative course has been without complication. No readmission/complications Subjective: Patient reports 4/10 pain. Overall is doing well. + ambulatory aid Oxycodone opioid pain medication Objective: Ambulates with walker. Incision well-approximated, no drainage, normal michelle-incisional erythema Full ROM not tested do to early post-operative period, but smaller arcs of motion fluid and comfortable Distally DP/PT palpable Distally S/S/SP/DP/T intact at baseline Distally DF/EHL/PF intact at baseline Negative teresita/calf tenderness Xrays: Well aligned total hip replacement in appropriate position with no evidence of loosening. Assessment and Plan: Destiney Ocampo is here for a first post-op appointment, overall doing well. Patient is accompanied bywife. -continued ice, rest, and use of non-narcotic analgesia as needed -wean off ambulatory aids -discussed home exercises and therapy -WBAT on operative extremity -reinforced posterior precautions through 8 weeks: avoid extremes of flexion, internal rotation, and adduction -continue ankle pumps and dvt ppx through 4 weeks -discussed driving requirement: 4 weeks post-op, off narcotic pain medication, adequate brake time -will see back at 6 week appointment for clinical exam -discussed red flag symptoms of acutely increasing pain, new erythema, new swelling, drainage, shortness of breath Katie Carolina RN (Under Nakul Maddox MD) Orthopaedic Surgery documented in [facility] encounter[facility]03-[facility] History of Present illness Narrative* Jovi Chacko Tech - 04/22/2024 10:30 AM EST Radiology Service Progress Note PATIENT NAME: Destiney Ocampo DATE OF SERVICE: April 22, 2024 TIME: 10:24 AM PATIENT IDENTITY VERIFICATION COMPLETED USING TWO (2) IDENTIFIERS: Name and Date of confirmedby patient verbally. FALL SCREENING: Has the patient had 2 falls in the last year or 1 fall with injury or currently using an Ambulatory Assistive Device (Walker, Cane, Wheelchair, Crutches, etc.)? Yes, Patient High Riskfor Falls What interventions were put in place to prevent falls during this visit? [place] Falls Risk Wristband Applied, Instructed Patient to Call for Help if Needed, Offered Assistance with Transfers/Clothing, Instructed Patient to Remain Seated (Not on Exam Table) Until Exam, and Increased Observations by Caregivers PATIENT GENDER DATA: Assigned male at PATIENT RELEVANT IMPLANT DATA REVIEWED: Not Applicable PATIENT PRESENTS WITH AN IMPLANTABLE OR ATTACHED CORPORATE QUALITY MANAGER: No RADIOLOGY DEPARTMENT: General X-ray: Exam(s) Completed: Pelvis X-Ray: Pelvis with Hip Right and Wt.Bearing PERIPHERAL IV DATA: Not applicable SIGNED BY: Kevin Brantley April 22, 2024 10:24 AM documented in this encounterEast [facility]03-[facility]-2025 NoteHNO ID: [id number] Author: JOVI CHACKO Tech Service: ? Author Type: Cipher Expert Type: Progress Notes Filed: 04/22/2024 10:25 Note Text: Radiology Service Progress Note PATIENT NAME: Destiney Ocampo DATE OF SERVICE: April 22, 2024 TIME: 10:24 AM PATIENT IDENTITY VERIFICATION COMPLETED USING TWO (2) IDENTIFIERS: Name and Date of confirmed by patient verbally. FALL SCREENING: Has the patient had 2 falls in the last year or 1 fall with injury or currently using an Ambulatory Assistive Device (Walker, Cane, Wheelchair, Crutches, etc.)? Yes, Patient High Risk for Falls What interventions were put in place to prevent falls during this visit? [place] Risk Wristband Applied, Instructed Patient to Call for Help if Needed, Offered Assistance with Transfers/Clothing, Instructed Patient to Remain Seated (Not on Exam Table) Until Exam, and Increased Observations by Caregivers PATIENT GENDER DATA: Assigned male at PATIENT RELEVANT IMPLANT DATA REVIEWED: Not Applicable PATIENT PRESENTS WITH AN IMPLANTABLE OR ATTACHED CORPORATE QUALITY MANAGER: No RADIOLOGY DEPARTMENT: General X-ray: Exam(s) Completed: Pelvis X-Ray: Pelvis with Hip Right and Wt. Bearing PERIPHERAL IV DATA: Not applicable SIGNED BY: Kevin Brantley April 22, 2024 10:24 [facility] [id number] Miscellaneous Notes* PT ROUTINE/REASSESSMENT/RECERT/CASE Ashley Kay PTA - 04/21/2024 1:58 PM EST SITUATION: spouse present during today's visit. patient reports the following since the last homecare visit: medications/allergies--no changes, no fall. caregiver reports she is picking up pain med refill today. BACKGROUND: Diagnoses (reason for Home Care): RTHR Weight Bearing/Precaution Changes: posterior,40-50lb WB ASSESSMENT: Focus of visit increased reps w/ all exercises today. Gait training w/ww. bed mobility Plan of care, goals, and visit frequency reviewed and agreed upon with patient and/or caregiver. Current Discharge Plan: independent with home exercise program Anticipate discharge by 04/28/24 RECOMMENDATION: Next visit to focus on check on weight bearing changes See intervention summary for intervention/education details. documented [facility]03[facility] Patient's home Note* PT ROUTINE/REASSESSMENT/RECERT/CASE Ashley Kay PTA - 04/21/2024 1:58 PM EST SITUATION: spouse present during today's visit. patient reports the following since the last homecare visit: medications/allergies--no changes, no fall. caregiver reports she is picking up pain med refill today. BACKGROUND: Diagnoses (reason for Home Care): RTHR Weight Bearing/Precaution Changes: posterior,40-50lb WB ASSESSMENT: Focus of visit increased reps w/ all exercises today. Gait training w/ww. bed mobility Plan of care, goals, and visit frequency reviewed and agreed upon with patient and/or caregiver. Current Discharge Plan: independent with home exercise program Anticipate discharge by 04/28/24 RECOMMENDATION: Next visit to focus on check on weight bearing changes See intervention summary for intervention/education details. [facility] Work Phone: 1(290) 285-260803-03-2025 Telephone encounter Note* Telephone Encounter - Baldemar Castro PA-C - 04/19/2024 4:21 PM EST [facility] website reviewed and validated. Patient has been compliant and taking medication appropriatelywithout evidence of suspicious activity. Will refill Rx. Valentin Castro PA-C [facility]03-03-2025 Miscellaneous Notes* Telephone Encounter - Baldemar Castro PA-C - 04/19/2024 4:21 PM EST [facility] website reviewed and validated. Patient has been compliant and taking medication appropriatelywithout evidence of suspicious activity. Will refill Rx. Valentin Castro PA-C * Telephone Encounter - Melquiades Almazan PSS - 04/19/2024 10:17 AM EST Ant calling to request refill of oxy for Destiney. Please call to [facility] [place] on chart. THanks. documented in this encounterEast [facility]03-[facility]-2025 Miscellaneous Notes* PT ROUTINE/REASSESSMENT/RECERT/CASE MGMT - Ashley Lanier PTA - 04/19/2024 1:30 PM EST SITUATION: spouse present during today's visit. patient and caregiver reports the following since the last homecare visit: medications/allergies--no changes, no fall. patient reports :my hip still hurts but i am doing better.. BACKGROUND: Diagnoses (reason for Home Care): RTHR Weight Bearing/Precaution Changes: posterior, 40-50#WB ASSESSMENT: Focus of visit performed and progressed strength exercises for HEP. Gait training w/ww including steps to exit home. Patient did well, slight fatigue after good recall of surgical precautions Plan of care, goals, and visit frequency reviewed and agreed upon with patient and/or caregiver. Current Discharge Plan: independent with home exercise program Anticipate discharge by 04/28/24 RECOMMENDATION: Next visit to focus on bed transfers See intervention summary for intervention/education details. [facility] Note* PT ROUTINE/REASSESSMENT/RECERT/CASE MGMT - Ashley Lanier PTA - 04/19/2024 1:30 PM EST SITUATION: spouse present during today's visit. patient and caregiver reports the following since the last homecare visit: medications/allergies--no changes, no fall. patient reports :my hip still hurts but i am doing better.. BACKGROUND: Diagnoses (reason for Home Care): RTHR Weight Bearing/Precaution Changes: posterior, 40-50#WB ASSESSMENT: Focus of visit performed and progressed strength exercises for HEP. Gait training w/ww including steps to exit home. Patient did well, slight fatigue after good recall of surgical precautions Plan of care, goals, and visit frequency reviewed and agreed upon with patient and/or caregiver. Current Discharge Plan: independent with home exercise program Anticipate discharge by 04/28/24 RECOMMENDATION: Next visit to focus on bed transfers See intervention summary for intervention/education details. [facility] Work Phone: 1(454) 805-116903-03-2025 Telephone encounter Note* Telephone Encounter - Melquiades Almazan PSS - 04/19/2024 10:17 AM EST Ant calling to request refill of oxy for Destiney. Please call to [facility] on chart. THanks. [facility]02-27-2025 Telephone encounter Note* Telephone Encounter - Ashley Lanier PTA - 04/15/2024 5:28 PM EST Removeed ABD dressing today. No concerns. Picture uploaded to chart. Thanks [facility] Work Phone: [phone] Miscellaneous Notes* Telephone Encounter - Ashley Lanier PTA - 04/15/2024 5:28 PM EST Removeed ABD dressing today. No concerns. Picture uploaded to chart. Thanks [facility] Miscellaneous Notes* PT ROUTINE/REASSESSMENT/RECERT/CASE MGMT - Ashley Lanier PTA - 04/15/2024 12:54 PM EST SITUATION: spouse present during today's visit. patient and caregiver reports the following since the last homecare visit: medications/allergies--got refill of pain med, no fall. patient reports he is starting to feel better. Had a BM yesterday and swelling is going down. BACKGROUND: Diagnoses (reason for Home Care): RTHR Weight Bearing/Precaution Changes: anteruir, 50% WB and walker for all ambulation x's 2weeks ASSESSMENT: Focus of visit removed ABD today. With patients permission, picture obtained and uploaded to chart.No concerns at this time. Performed and progressed HEP. Gait training w/ww and cues for knee flexion vs stiff knee pattern. Able to correct w/ cues. Patient reported decreased thigh stiffness after therapy today Plan of care, goals, and visit frequency reviewed and agreed upon with patient and/or caregiver. Current Discharge Plan: independent with home exercise program Anticipate discharge by 04/26/24 RECOMMENDATION: Next visit to focus on stair training See intervention summary for intervention/education details. [facility] Patient's home Note* PT ROUTINE/REASSESSMENT/RECERT/CASE MGMT - Ashley Lanier PTA - 04/15/2024 12:54 PM EST SITUATION: spouse present during today's visit. patient and caregiver reports the following since the last homecare visit: medications/allergies--got refill of pain med, no fall. patient reports he is starting to feel better. Had a BM yesterday and swelling is going down. BACKGROUND: Diagnoses (reason for Home Care): RTHR Weight Bearing/Precaution Changes: anteruir, 50% WB and walker for all ambulation x's 2weeks ASSESSMENT: Focus of visit removed ABD today. With patients permission, picture obtained and uploaded to chart.No concerns at this time. Performed and progressed HEP. Gait training w/ww and cues for knee flexion vs stiff knee pattern. Able to correct w/ cues. Patient reported decreased thigh stiffness after therapy today Plan of care, goals, and visit frequency reviewed and agreed upon with patient and/or caregiver. Current Discharge Plan: independent with home exercise program Anticipate discharge by 04/26/24 RECOMMENDATION: Next visit to focus on stair training See intervention summary for intervention/education details. [facility] Work Phone: 1(132) 856-263902-26-2025 Telephone encounter Note* Telephone Encounter - Katie Carolina RN - 04/14/2024 11:10 AM EST Faxed to number provided. [facility] Work Phone: 1(246) 193-507102-26-2025 Miscellaneous Notes* Telephone Encounter - Katie Carolina RN - 04/14/2024 11:10 AM EST Faxed to number provided. * Addendum Note - Breonna Polk PA-C - 04/14/2024 10:26 AM ESTAddended by: BREONNA POLK on: 04/14/2024 10:26 AM Modules accepted: Orders * Telephone Encounter - Katie Carolina RN - 04/14/2024 10:12 AM EST Spoke with Briseida- she was referring to new walker. Waist size 38 Wider walker Rx request and then fax order to listen number. * Telephone Encounter - Maria Fernanda Win - 04/12/2024 2:52 PM EST Patient's , Briseida, calling in asking for a [place] [facility] [place]. Fax number is [phone]. Maria Fernanda Peters documented [facility] Note* Addendum Note - Breonna Polk PA-C - 04/14/2024 10:26 AM ESTAddended by: BREONNA POLK on: 04/14/2024 10:26 AM Modules accepted: Orders [facility]02-26-[facility] Telephone encounter Note* Telephone Encounter - Katie Carolina RN - 04/14/2024 10:12 AM EST Spoke with Pat- she was referring to new jeff. Waist size 38 Wider walker Rx request and then fax order to listen number. [facility]02-25-2025 Miscellaneous Notes* CARE COORDINATION - Lucina Montesinos RN - 04/13/2024 3:18 PM EST Medication review completed. No ineffective drug therapy, significant side effects, significant drug interactions, duplicate drug therapy, or noncompliance with drug therapy noted. SOC clinician reported the patient did not have nystatin (MYCOSTATIN) powder in home. Lucina Montesinos RN documented [facility] Patient's home Note* CARE COORDINATION - Lucina Montesinos RN - 04/13/2024 3:18 PM EST Medication review completed. No ineffective drug therapy, significant side effects, significant drug interactions, duplicate drug therapy, or noncompliance with drug therapy noted. SOC clinician reported the patient did not have nystatin (MYCOSTATIN) powder in home. Lucina Montesinos RN [facility] Work Phone: 1(275) 800-780402-25-2025 Telephone encounter Note* Telephone Encounter - Baldemar Castro PA-C - 04/13/2024 11:47 AM EST PDMP website reviewed and validated. Patient has been compliant and taking medication appropriatelywithout evidence of suspicious activity. Will refill Rx. Valentin Castro PA-C [facility]02-[facility] Miscellaneous Notes* Telephone Encounter - Baldemar Castro PA-C - 04/13/2024 11:47 AM EST PDMP website reviewed and validated. Patient has been compliant and taking medication appropriatelywithout evidence of suspicious activity. Will refill Rx. Valentin Castro PA-C * Telephone Encounter - Melquiades Almazan PSS - 04/13/2024 11:21 AM EST calling for Destiney for refill of oxycodone. Please sent to [facility] on chart. Thanks. [facility] Telephone encounter Note * Telephone Encounter - Melquiades Almazan PSS - 04/13/2024 11:21 AM EST calling for Destiney for refill of oxycodone. Please sent to [facility] on chart. Thanks. [facility]02-[facility] Miscellaneous Notes* PT ROUTINE/REASSESSMENT/RECERT/CASE MGMT - Ashley Lanier PTA - 04/13/2024 10:09 AM EST SITUATION: spouse present during today's visit. patient and caregiver reports the following since the last homecare visit: medications/allergies--no changes, no fall. patient and caregiver reports patient only has a few pain pills left and is very concerned about running out. Patient stated I am still having alot of pain. I instructed to call Dr suzie to request refill. Patient and stated theydid not know they could do that. called while i was in home. . BACKGROUND: Diagnoses (reason for Home Care): RTHR Weight Bearing/Precaution Changes: 50% walker at all times [id number], anterior ASSESSMENT: Focus of visit changed ABD dressing today. No drainage or s/s of infection noted. performed and progressed LE strength exercises for HEP. Gait training w/ww and much cueing to encourage 50% WB, patient was putting all his weight on arms to avoid any weight on RLE. Plan of care, goals, and visit frequency reviewed and agreed upon with patient and/or caregiver. Current Discharge Plan: independent with home exercise program Anticipate discharge by 04/26/24 RECOMMENDATION: Next visit to focus on remove ABD dressing See intervention summary for intervention/education details. [facility] Patient's home Note* PT ROUTINE/REASSESSMENT/RECERT/CASE MGMT - Ashley Lanier PTA - 04/13/2024 10:09 AM EST SITUATION: spouse present during today's visit. patient and caregiver reports the following since the last homecare visit: medications/allergies--no changes, no fall. patient and caregiver reports patient only has a few pain pills left and is very concerned about running out. Patient stated I am still having alot of pain. I instructed to call Dr office to request refill. Patient and stated theydid not know they could do that. called while i was in home. . BACKGROUND: Diagnoses (reason for Home Care): RTHR Weight Bearing/Precaution Changes: 50% walker at all times [id number], anterior ASSESSMENT: Focus of visit changed ABD dressing today. No drainage or s/s of infection noted. performed and progressed LE strength exercises for HEP. Gait training w/ww and much cueing to encourage 50% WB, patient was putting all his weight on arms to avoid any weight on RLE. Plan of care, goals, and visit frequency reviewed and agreed upon with patient and/or caregiver. Current Discharge Plan: independent with home exercise program Anticipate discharge by 04/26/24 RECOMMENDATION: Next visit to focus on remove ABD dressing See intervention summary for intervention/education details. [facility] Work Phone: [phone] 128-613402-24-2025 Telephone encounter Note* Telephone Encounter - Maria Fernanda Win - 04/12/2024 2:52 PM EST Patient's , Briseida, calling in asking for a [place] [facility] [place]. Fax number is [phone]. Maria Fernanda Peters [facility]02-23-2025 Miscellaneous Notes* HH PT SOC/SORIN/FOLLOW UP/OTHER - Miguelito Smith, PT - 04/11/2024 7:19 AM EST SITUATION: spouse present during today's visit. patient reports he removed his bandage prior to P.T. arrival. BACKGROUND: Diagnoses (reason for Home Care): Primary osteoarthritis of both hips s/p 04/08/24 ARTHROPLASTY ACETABULAR AND PROX FEM PROSTH TOTAL HIP ANTERIOR APPROACH (Right: Hip) Advance Directives: Patient does have advance directives. Past Medical History: Pure Hypercholesterolemia Diverticulosis of Colon (Without Mention of Hemorrhage) PAIN HIP JOINT Diaphragmatic Hernia ESOPHAGITIS REFLUX Acute Gastritis Without Mention of Hemorrhage Benign Neoplasm of Colon Hypertension Diabetes Mellitus Type 2, Controlled, Without Complications (Hcc) Neck Pain Cervical Radiculopathy Midline Thoracic Back Pain Numbness and Tingling of Right Upper Extremity Numbness and Tingling in Left Upper Extremity Cervical Spondylosis Without Myelopathy Shoulder Arthritis Prostate Cancer (Hcc) Pulmonary Nodule/Lesion, Solitary RAJI (obstructive sleep apnea) AHI 39 Complaints of Memory Disturbance Abnormal X-Ray Chronic Fatigue Headaches Diplopia Cardiomyopathy (Hcc) Coronary Artery Disease Involving [place] Coronary Artery of [place] Heart Without Angina Pectoris Primary Osteoarthritis of Both Hips Weight Bearing or Surgical Precautions: Partial Weight bearing 50% on operative leg with walker alltimes for 2 weeks HIP PRECAUTIONS: Anterior Hip -Do not step backwards with surgical leg. No hip extension. -Do not allow surgical leg to externally rotate (turn outwards). -Do not cross your legs. Use a pillow between legs when rolling -Do not bend over past 90 degrees TREATMENT / WOUND CARE: If you have any concerns about your wound, please contact the office. Keep wound and incision area clean and dry. You may remove your dressing on POD #7-10 (7 to 10 days after surgery). If it remains drainage-free, you may leave the dressing off, keeping the wound open to air. If there is any drainage please contact the office You may not submerge the wound under standing water for 6 weeks time after surgery (i.e. no baths, no hot tubs, no swimming pools). Do not rub the wound, but rather pat dry. If you have non-absorbable sutures in place, these will be taken out on your 1st follow-up appointment. Observe the wound for signs of infection, including increased redness, swelling, or persistent drainage around the incision site. It is normal for your wound to be warmer immediately after surgery (even up to 4-6 weeks after surgery). If you begin to experience fevers, chills, night sweats, or flu-like symptoms and your wound shows signs concerning for wound infection, please call the orthopaedic office immediately ASSESSMENT: Patient evaluated by [facility]. Reviewed and explained homecare services. Plan of care, goals, and visit frequency developed, reviewed, and agreed upon with patient and/or caregiver. Patient Goal: improve mobility Patient will benefit from continued physical therapy to address the following deficits: strength, balance, gait, transfers, stair negotiation and bed mobility. Current Discharge Plan: independent with home exercise program. Anticipate discharge by 05/01/24. RECOMMENDATION: Next visit to focus on transfers, ambulation, review HEP and progress, bandage change Agreeable to PT and OT See intervention summary for intervention/education details. [facility] Patient's home Note* PT SOC/SORIN/FOLLOW UP/OTHER - Miguelito Smith PT - 04/11/2024 7:19 AM EST SITUATION: spouse present during today's visit. patient reports he removed his bandage prior to P.T. arrival. BACKGROUND: Diagnoses (reason for Home Care): Primary osteoarthritis of both hips s/p 04/08/24 ARTHROPLASTY ACETABULAR AND PROX FEM PROSTH TOTAL HIP ANTERIOR APPROACH (Right: Hip) Advance Directives: Patient does have advance directives. Past Medical History: Pure Hypercholesterolemia Diverticulosis of Colon (Without Mention of Hemorrhage) PAIN HIP JOINT Diaphragmatic Hernia ESOPHAGITIS REFLUX Acute Gastritis Without Mention of Hemorrhage Benign Neoplasm of Colon Hypertension Diabetes Mellitus Type 2, Controlled, Without Complications (Hcc) Neck Pain Cervical Radiculopathy Midline Thoracic Back Pain Numbness and Tingling of Right Upper Extremity Numbness and Tingling in Left Upper Extremity Cervical Spondylosis Without Myelopathy Shoulder Arthritis Prostate Cancer (Hcc) Pulmonary Nodule/Lesion, Solitary RAJI (obstructive sleep apnea) AHI 39 Complaints of Memory Disturbance Abnormal X-Ray Chronic Fatigue Headaches Diplopia Cardiomyopathy (Hcc) Coronary Artery Disease Involving [place] Coronary Artery of [place] Heart Without Angina Pectoris Primary Osteoarthritis of Both Hips Weight Bearing or Surgical Precautions: Partial Weight bearing 50% on operative leg with walker alltimes for 2 weeks HIP PRECAUTIONS: Anterior Hip -Do not step backwards with surgical leg. No hip extension. -Do not allow surgical leg to externally rotate (turn outwards). -Do not cross your legs. Use a pillow between legs when rolling -Do not bend over past 90 degrees TREATMENT / WOUND CARE: If you have any concerns about your wound, please contact the office. Keep wound and incision area clean and dry. You may remove your dressing on POD #7-10 (7 to 10 days after surgery). If it remains drainage-free, you may leave the dressing off, keeping the wound open to air. If there is any drainage please contact the office You may not submerge the wound under standing water for 6 weeks time after surgery (i.e. no baths, no hot tubs, no swimming pools). Do not rub the wound, but rather pat dry. If you have non-absorbable sutures in place, these will be taken out on your 1st follow-up appointment. Observe the wound for signs of infection, including increased redness, swelling, or persistent drainage around the incision site. It is normal for your wound to be warmer immediately after surgery (even up to 4-6 weeks after surgery). If you begin to experience fevers, chills, night sweats, or flu-like symptoms and your wound shows signs concerning for wound infection, please call the orthopaedic office immediately ASSESSMENT: Patient evaluated by [facility]. Reviewed and explained homecare services. Plan of care, goals, and visit frequency developed, reviewed, and agreed upon with patient and/or caregiver. Patient Goal: improve mobility Patient will benefit from continued physical therapy to address the following deficits: strength, balance, gait, transfers, stair negotiation and bed mobility. Current Discharge Plan: independent with home exercise program. Anticipate discharge by 05/01/24. RECOMMENDATION: Next visit to focus on transfers, ambulation, review HEP and progress, bandage change Agreeable to PT and OT See intervention summary for intervention/education details. [facility] Work Phone: 1(653) 795-844302-21-2025 NoteHNO ID: [id number] Author: ?, ?, ? Service: Pharmacy Author Type: ? Type: Plan of Care Filed: 04/09/2024 16:03 Note Text: PHARMACY BEDSIDE DELIVERY SERVICE Patient Name: Destiney Ocampo The marked outpatient medications were Filled at: [facility] and delivered to the patient's bedside to pharm p/u Medication List START taking these medications acetaminophen 500 mg tablet Commonly known as: TYLENOL Take 2 tablets by mouth every 8 hours as needed for pain. X aspirin, enteric coated 81 mg EC tablet Commonly known as: ASPIRIN, ENTERIC COATED Take 1 tablet by mouth two times a day for 28 days. Replaces: aspirin 81 mg chewable tablet X cefADROxil 500 mg capsule Commonly known as: DURICEF Take 1 capsule by mouth every 12 hours for 14 days. X magnesium oxide 400 mg (241.3 mg magnesium) tablet Commonly known as: MAG-OX Take 1 tablet by mouth two times a day for 10 doses. X oxyCODONE IR 5 mg immediate release tablet Commonly known as: ROXICODONE Take 1-2 tablets by mouth every 6 hours as needed for pain for up to 7 days. X polyethylene glycol 3350 17 gram/dose powder Commonly known as: MIRALAX Take 17 g by mouth once daily as needed for constipation for up to 10 days. Dissolve dose in 4 - 8 ounces of liquid and take as directed. X VITAMIN C 500 mg tablet Generic drug: ascorbic acid (vitamin C) Take 1 tablet by mouth two times a day with meals for 27 doses. X CHANGE how you take these medications docusate sodium 100 mg capsule Commonly known as: COLACE Take 1 capsule by mouth two times a day as needed for constipation. What changed: medication strength how much to take when to take this reasons to take this X meloxicam 7.5 mg tablet Commonly known as: MOBIC Take 1 tablet by mouth once daily for 14 days. What changed: medication strength how much to take how to take this X CONTINUE taking these medications atorvastatin 40 mg tablet Commonly known as: LIPITOR blood sugar diagnostic test strip Commonly known as: BLOOD GLUCOSE TEST Test blood sugar(s) 1-2 times daily or as directed. Dx: Type 2 DM - Controlled E11.9 Insulin: No Blood-Glucose Meter monitoring kit Glucose Meter of Choice (per insurance coverage)- Kit - Dx: Type 2 DM - Controlled E11.9, Test 1-2 times a day or as directed. No insulin Cholecalciferol (Vitamin D3) 50 mcg (2,000 unit) Cap Take 1 capsule by mouth once daily. COMPOUNDED PRESCRIPTION Generic Glucometer - I each 50 strips and lancets. Re: Diabetes mellitus controlled with hypoglycemia. ENTRESTO 49-51 mg tablet Generic drug: sacubitril-valsartan Take 1 tablet by mouth two times a day. (getting from patient assistance) famotidine 20 mg tablet Commonly known as: PEPCID Take 1 tablet by mouth at bedtime as needed. FLONASE NASAL FOLIC ACID ORAL ketoconazole 2 % cream Commonly known as: NIZORAL Apply 1 application to affected area two times a day. Continue for 1 week after rash resolves. Lancets Test blood sugar(s) 1-2 times daily or as directed. Dx: Type 2 DM - Controlled E11.9 Insulin: No Magnesium 250 mg Tab Take 1 tablet by mouth two times a day. metFORMIN ER 500 mg 24 hr tablet Commonly known as: GLUCOPHAGE XR Take 1 tablet by mouth two times a day with meals. with breakfast and dinner metoprolol succinate ER 25 mg 24 hr tablet Commonly known as: TOPROL XL Take 1 tablet by mouth once daily. nystatin powder Commonly known as: MYCOSTATIN Apply 1 application to affected area four times daily. Continue to use for a week after rash resolves. Use as needed for recurrences omeprazole 20 mg capsule Commonly known as: PriLOSEC Take 1 capsule by mouth two times a day. VITAMIN B-12 ORAL You might also be taking other medications not listed above. If you have questions about any of your other medications, talk to the person who prescribed them or your Primary Care Provider. STOP taking these medications aspirin 81 mg chewable tablet Replaced by: aspirin, enteric coated 81 mg EC tablet [facility] [employer] PAGER: [phone] April 09, 2024 4:03 PMRiverview Health [id number] NoteHNO ID: [id number] Author: ORLY MORE RN Service: Care Management Author Type: Registered Nurse Type: Care Mgt Progress Note Filed: 04/09/2024 14:40 Note Text: CARE MANAGEMENT DISCHARGE NOTE SERVICE DATE: April 09, 2024 SERVICE TIME: 2:40 PM Admission Date: 04/08/2024 LOS: 0 days Discharge Arrangement Discharge Arrangement: Home with Home Health, Home with Relative Services Arranged Medical Services: Skilled Home Health Care Type: Home Health Agency, Physical Therapy Provider Name: [facility] Caregiver Assessment Caregiver is ready, willing and able to meet the patient's needs as recommended by the inter-professional team: Yes Name of Caregiver: Transportation Arrangements Transportation Arrangements: Car- Brother to transport Handoff Communication: Handoff to: Primary Care Physician Primary Care Physician Name/Phone: Dr. Keren Arce- [phone] Additional Information: Discharge order written for today. [facility] will be seeing the patient for Home PT with a start of care date within 24-48 hours. Notified [facility] of the patients discharge home today. Discharge Information Row Name Admission (Current) from 04/08/[address] Care Agency [facility] Start of Care -- Within 24-48 hours SIGNATURE: Orly More RN PATIENT NAME: Destiney Ocampo DATE: April 09, 2024 TIME: 2:39 PMRiverview Health [id number] NoteHNO ID: [id number] Author: ANTOINE LOU MD Service: General Internal Medicine Author Type: Physician Type: Progress Notes Filed: 04/09/2024 13:22 Note Text: INPATIENT PROGRESS NOTES Patient Name: Destiney Ocampo DATE of SERVICE: 04/09/2024 PRIMARY SERVICE: medicine INTERVAL HPI: Last night patient did receive a IV fluid bolus for hypotension and again this morning patient was given IV fluid. Patient is denying any nausea or vomiting. No shortness of breath or palpitation had transient lightheadedness ASSESSMENT AND PLAN: Osteoarthritis, status post right total hip arthroplasty, DVT prophylaxis with aspirin 81 mg twice a day Postop hypotension received IV fluid bolus DM type II continue hypoglycemic medication and sliding scale next coronary artery disease currently on metoprolol Obstructive sleep apnea nonadherent with the CPAP Hyperlipidemia continue statins Possible discharge today Home-going meds reviewed Plan of care discussed with: Provider, RN, Patient. PERTINENT ROS: All other reviewed and negative other than HPI. MEDICATIONS: Current Facility-Administered Medications Medication Dose Route Frequency atorvastatin 40 mg tab(s) (LIPITOR) 40 mg ORAL DAILY metFORMIN ER 500 mg tab(s) (GLUCOPHAGE XR) 500 mg ORAL BID w MEALS pantoprazole DR 40 mg tab(s) (PROTONIX) 40 mg ORAL DAILY (6 AM) acetaminophen 1,000 mg tab(s) (TYLENOL) 1,000 mg ORAL q 8 H oxyCODONE IR 5-10 mg tab(s) (ROXICODONE) 5-10 mg ORAL q 3 H PRN HYDROmorphone 0.4 mg injection (DILAUDID) 0.4 mg INTRAVENOUS q 4 H PRN ondansetron orally disintegrating 4 mg tab(s) (ZOFRAN ODT) 4 mg ORAL q 6 H PRN Or ondansetron (PF) 4 mg injection (ZOFRAN) 4 mg INTRAVENOUS q 6 H PRN magnesium hydroxide 400 mg/5 mL 30 mL (MOM) 30 mL ORAL DAILY PRN [START ON 04/10/2024] bisacodyl EC 10 mg tab(s) (DULCOLAX) 10 mg ORAL DAILY aluminum-magnesium hydroxide-simethicone 200-200-20 mg/5 mL 30 mL 30 mL ORAL q 2 H PRN ferrous sulfate 325 mg tab(s) 325 mg ORAL DAILY WITH BREAKFAST ascorbic acid (vitamin C) 500 mg tab(s) (VITAMIN C) 500 mg ORAL BID w MEALS senna 17.2 mg tab(s) (SENOKOT) 17.2 mg ORAL AT BEDTIME dextrose 40 % 15 g 15 g ORAL PRN Or glucagon 1 mg injection 1 mg INTRAMUSCULAR PRN Or dextrose 10% iv bolus 12.5 g INTRAVENOUS PRN aspirin, enteric coated 81 mg tab(s) 81 mg ORAL BID cephALEXin 500 mg cap(s) (KEFLEX) 500 mg ORAL q 6 H insulin lispro injection (rapid acting) (ADMElog) SUBCUTANEOUS w MEALS insulin lispro injection (rapid acting) (ADMElog) SUBCUTANEOUS AT BEDTIME NaCl 0.9% 1,000 mL iv bolus 1,000 mL INTRAVENOUS ONCE metoprolol succinate ER 25 mg tab(s) (TOPROL XL) 25 mg ORAL DAILY magnesium oxide 400 mg tab(s) (MAG-OX) 400 mg ORAL BID keTORolac 15 mg injection (Toradol) 15 mg INTRAVENOUS q 6 H PHYSICAL EXAM: Patient Vitals for the past 24 hrs: BP Temp Temp src Pulse Resp SpO2 04/09/24 1116 102/55 36.5 ?C (97.7 ?F) Oral (!) 56 18 95 % 04/09/24 1114 102/55 -- -- (!) 56 -- -- 04/09/24 0908 107/62 36.7 ?C (98.1 ?F) Oral 71 18 97 % 04/09/24 0743 104/70 -- -- 94 -- -- 04/09/24 0737 109/91 36.8 ?C (98.2 ?F) Oral 96 20 94 % 04/09/24 0732 98/57 36.9 ?C (98.4 ?F) Oral 71 18 94 % 04/09/24 0632 100/56 -- -- -- -- -- 04/09/24 0529 91/52 -- -- -- -- -- 04/09/24 0522 91/52 -- -- -- -- -- 04/09/24 0454 88/50 -- -- -- -- -- 04/09/24 0431 88/50 -- -- -- -- -- 04/09/24 0418 (!) 78/48 36.9 ?C (98.5 ?F) Oral 70 18 96 % 04/09/24 0209 (!) 97/48 -- -- 65 -- 93 % 04/09/24 0045 91/50 -- -- -- -- -- 04/09/24 0037 95/50 36.6 ?C (97.9 ?F) Oral 66 18 95 % 04/08/24 2126 110/62 -- -- (!) 53 -- -- 04/08/242013 99/63 36.6 ?C (97.9 ?F) Oral 60 18 93 % 04/08/24 1633 -- 36.3 ?C (97.3 ?F) Oral (!) 59 16 95 % 04/08/24 1429 108/63 36.5 ?C (97.7 ?F) Oral 67 16 95 % There is no height or weight on file to calculate BMI. GENERAL: Alert, no distress, cooperative NECK: No jugulovenous distention LUNGS: Lungs clear to auscultation, Good diaphragmatic excursion CARDIAC: Normal S1 and S2; no rubs, murmurs, or gallops ABDOMEN: Abdomen soft, non-tender, BS normal, No masses or organomegaly EXTREMITIES: no edema no calf tenderness Exogenous Class 1 Obesity CBC: Recent Labs 04/09/24 0442 WBC 10.12 RBC 4.16* HB 11.3* HCT 35.4* PLT 139* MCV 85.1 MCH 27.2 MPV 10.4 Coags: CMP: Recent Labs 04/09/24 0442 NA 137 K 4.0 CHLOR 102 CO2 26 BUN 14 CREAT 0.81 GLUC 147* TPROT 5.5* CA 8.6 MG 1.4* TBILI 0.8 ALKPHOS 65 ALT 12 AST 20 ANION 9 Cardiac Enzymes: Liver Function, Amylase, Lipase: Recent Labs 04/09/24 0442 TPROT 5.5* ALB 3.4* ALT 12 AST 20 ALKPHOS 65 TBILI 0.8 ABG's: No results for input(s): PH, PCO2, PO2, BE, HCO3, CO2CT, O2HB, COHB, MHGB, TEMP, PHTC, PCO2T, PO2T, O2AD in the last 24 hours. MG/PHOS: Recent Labs 04/09/242 MG 1.4* SIGNATURE: Antoine Lou [id number] NoteHNO ID: [id number] Author: NAKUL MADDOX MD Service: Orthopaedic Surgery Author Type: Physician Type: Progress Notes Filed: 04/09/2024 11:01 Note Text: ORTHOPAEDIC SURGERY PROGRESS NOTE PATIENT NAME: Destiney Ocampo A/P: 74 year old yo male POD1 s/p R INES ABMS - Activity: 50% PWB RLE anterior hip precautions - Wound: Aquacel Dressing to be removed POD7 - Drain: - Antibiotics: Completing 24 hours of perioperative Ancefd then Duricef 2 weeks - Imaging: complete - Pain - PO and IV breakthrough - DVT prophylaxis - SCDs, ASA 81 BID - HLIV when tolerating sufficient PO - Germain: none * Discharge planning - Await PT recs --> consults today - Case Management --> assessment today - Dispo: anticipate DC to home on POD 1/2 S: hip pain this AM as it was held due to BP, denies n/v/cp/sob VITALS: 04/09/24 0732 04/09/24 0737 04/09/24 0743 04/09/24 0908 BP: 98/57 109/91 104/70 107/62 Pulse: 71 96 94 71 Resp: Temp: 36.9 ?C (98.4 ?F) 36.8 ?C (98.2 ?F) 36.7 ?C (98.1 ?F) TempSrc: Oral Oral Oral SpO2: 94% 94% 97% Intake/Output Summary (Last 24 hours) at 04/09/2024 1100 Last data filed at 04/09/2024 1034 Gross per 24 hour Intake 1310 ml Output 600 ml Net 710 ml Physical Exam: * Gen: awake, alert, converses appropriately, NAD * Resp: Unlabored on RA, no wheeze * RLE: - dressing c,d,i - 5/5 PF, DF, EHL - SILT L4-S1 - 2+ PT pulse, toes wwp Labs: CBC: Recent Labs 04/09/24441 WBC 10.12 HB 11.3* HCT 35.4* PLT 139* MCV 85.1 RDWCV 13.0 COAG: No results for input(s): APTT, INR in the last 168 hours. BMP: Recent Labs 04/09/24 044 GLUC 147* NA 137 K 4.0 CHLOR 102 CO2 26 ANION 9 BUN 14 CREAT 0.81 CHEM: Recent Labs 04/09/24 044 ALB 3.4* TPROT 5.5* CA 8.6 MG 1.4* URINALYSIS:No results for input(s): PH, SPGR, UGLUC, UBILI, UKET, UHB, UPROT, UROBIL, UWBC, SSA in the last 168 hours. Invalid input(s): CONSTANTINO Maddox MD Associate Staff Physician [facility] Department of Orthopedic Surgery [phone] Telephone encounter Note* Telephone Encounter - Betty Linares PSS - 04/09/2024 10:51 AM EST Date/Time: 04/09/2024 10:51 AM Spoke with patient @ phone #: [phone] - Preferred # for contact: [phone] Have you received help from a home care company in the last 60 days? No Are you agreeable to [facility] services? Yes What address will we be seeing you at? [place] [address] Do you have any upcoming appointments or things we need to schedule around? No Do you have a teachable CG or can you manage your care independently? yes Who? spouse Have you received the flu shot? Yes If so, when and where? [facility] Dec 2023 [facility]02-21-2025 Miscellaneous Notes* Telephone Encounter - Betty Linares PSS - 04/09/2024 10:51 AM EST Date/Time: 04/09/2024 10:51 AM Spoke with patient @ phone #: [phone] - Preferred # for contact: [phone] Have you received help from a home care company in the last 60 days? No Are you agreeable to [facility] services? Yes What address will we be seeing you at? [place] [address] Do you have any upcoming appointments or things we need to schedule around? No Do you have a teachable CG or can you manage your care independently? yes Who? spouse Have you received the flu shot? Yes If so, when and where? [facility] Dec 2023 [facility] NoteHNO ID: [id number] Author: ORLY MORE RN Service: Care Management Author Type: Registered Nurse Type: Care Mgt Initial Assessment Filed: 04/09/2024 10:56 Note Text: CARE MANAGEMENT: ASSESSMENT AND DISCHARGE PLAN SERVICE DATE: April 09, 2024 SERVICE TIME: 9:39 AM PCP: Keren Arce MD Primary Contact: Extended Emergency Contact Information Primary Emergency Contact: Briseida Ocampo Address: [place] [address] Relation: Spouse Admission Status: Extended Recovery Insurance Provider: [employer] POS Discharge Planning requested by: Per Department Practice Potential Transition Plans Home OT/PT Advance Directives Current Advance Directive: Living Will In Chart: Yes Up To Date and Valid: Yes Current Living Arrangements and Support Lives with: Spouse/significant other Type of Residence: Private Residence (House) Does the patient have to climb stairs at home?: No Support: Spouse/significant other How do you manage to accomplish the following: Independent: Ambulation, Bathe/Shower, Dress, Meals/Meal Prep, Going to the bathroom, Medication Management, Transportation to appointments/community Current Services/Equipment Current Post-Acute Service(s): DME Current DME Type: Walker, Cane, Shower seat, Elevated toilet seat, Other: See Comment (Lift Chair) Discharge Planning Patient Goal(s): Be able to go home [place] of Choice Explained: [place] of Choice Given: Yes Level of Care Discussed: Home Care Are you interested in bedside delivery of your medications? Yes Discharge Planning Participant(s): Patient Patient/Family Comments: Caregiver Assessment: Caregiver is ready, willing and able to meet the patient's needs as recommended by the inter-professional team: Yes Name of Caregiver: Transport at Discharge: Transportation Arrangements: Car Needs Prior to Discharge: Needs Prior to Discharge: Other: See Comment (Accepting [facility] agency) Post-Acute Discharge Plan: Review of the chart and met with the patient and his at the bedside. The patient lives with his in a ranch home. PT- Home PT. Discussed PT recommendations with the patient. Referral to [facility]. CM department will continue to follow for DC needs. 10:56 am-[facility] able to accept. 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 Patient rates their pain 6/10 at this time. Objective PHYSICAL EXAM: BP 108/63 Pulse 59 Temp (Src) 97.3 (Oral) Resp 16 SpO2 95% O2 Therapy: Room Air, Liters: 2 Physical Exam: Right Leg: Sensation intact to light touch. Patient is able to dorsiflex and plantarflex the right ankle. Patient is able to wiggle toes. Dressings dry and in place. Assessment AND Plan POSTOP PLANS: As indicated per Orthopedic services Proceed with Surgeon's post operative plan. Advised patient to reach out to nurse if issues occur. SIGNATURE: Joana Walker PA-C PATIENT NAME: Destiney Ocampo DATE: April 08, 2024 TIME: 6:54 PMRiverview Health [id number] NoteHNO ID: [id number] Author: NAKUL FIGUEREDO MD Service: Anesthesiology Author Type: Anesthesiologist Type: Anesthesia Procedure Notes Filed: 04/08/2024 09:42 Note Text: ANESTHESIOLOGY PROCEDURE NOTE Spinal Block General Information Procedure Start Time/Medication Administration: 04/08/2024 7:40 AM Procedure End time: 04/08/2024 7:42 AM Patient location during procedure: OR Reason for Block: primary surgical anesthetic Staffing SRNA: Emeli Akins SRNA Performed by: AYAD Preparation Sterility Preparation: hand hygiene performed prior to procedure, sterile gloves, drapes, and procedure tray, surgical cap used, mask used, sterile drape used during line insertion, skin prep agent completely dried prior to procedure Sterility Technique Not Completely Performed Due to Extreme Emergency: No Site Prep: Betadine Procedure Details Patient Position: sitting Ultrasound Guided: No Monitoring: Pulse Ox, EKG and NIBP Approach: Midline Location: L3-4 Injection Technique: single-shot Needle Needle Type: pencil-tip Needle Gauge: 24 G Needle Length: 4 in CSF: CSF clear Assessment Events: tolerated well SIGNATURE: AYAD Naidu PATIENT NAME: Destiney Ocampo DATE: April 08, 2024 TIME: 7:59 AM CSN: [id number] Telephone encounter Note* Telephone Encounter - Katie Carolina RN - 03/31/2024 2:08 PM EST Informed pt. [facility] Work Phone: [phone]) 732-268002-12-2025 Miscellaneous Notes* Telephone Encounter - Katie Carolina RN - 03/31/2024 2:08 PM EST Informed pt. * Telephone Encounter - Maria Fernanda Win - 03/31/2024 11:29 AM EST Patient scheduled for surgery on 04-08-2024 and still plans on and wants to proceed. He is getting over the flu. His was diagnosed with influenza A. He needs to make sure that it is okay that he still proceed because he needs to start changing some of his medications and stopping some etc. If you could call him back today he would appreciate it. He can be reached at [phone]. Maria Fernanda Peters documented in this encounterEast [facility]02-[facility]-2025 Telephone encounter Note * Telephone Encounter - Maria Fernanda Win - 03/31/2024 11:29 AM EST Patient scheduled for surgery on 04-08-2024 and still plans on and wants to proceed. He is getting over the flu. His was diagnosed with influenza A. He needs to make sure that it is okay that he still proceed because he needs to start changing some of his medications and stopping some etc. If you could call him back today he would appreciate it. He can be reached at [phone]. Maria Fernanda Peters [facility]02-11-2025 Telephone encounter Note* Telephone Encounter - Keren Arce MD - 03/30/2024 12:39 AM EST The following approved medication requests have been transmitted electronically. Requested Prescriptions Signed Prescriptions Disp Refills metFORMIN ER (GLUCOPHAGE XR) 500 mg 24 hr tablet 180 tablet 3 Sig: Take 1 tablet by mouth two times a day with meals. with breakfast and dinner Authorizing Provider: KEREN ARCE MD [facility]02-11-2025 Miscellaneous Notes* Telephone Encounter - Keren Arce MD - 03/30/2024 12:39 AM EST The following approved medication requests have been transmitted electronically. Requested Prescriptions Signed Prescriptions Disp Refills metFORMIN ER (GLUCOPHAGE XR) 500 mg 24 hr tablet 180 tablet 3 Sig: Take 1 tablet by mouth two times a day with meals. with breakfast and dinner Authorizing Provider: KEREN ARCE MD * Telephone Encounter - Queenie Jhaveri RN - 03/29/2024 5:07 PM EST Pt's Pat calling in for refill on pt's Metformin. She states the directions on the bottle say to take one tablet a day with breakfast. She states they were told to take 2 tablets daily-one in the morning and one in the evening. In review of [facility], note found from 02/02/[address] Arce gave instructions to take 2 a day. Pt's HgbA1c is now down to 6.9 on 03/22/24 from 8.2 on 01/30/24. states since she has been doubling up on the prescription, [facility] [place]. Pt is scheduled for hip replacement on 04/08/24. documented in this encounterEast [facility]02-10-2025 Telephone encounter Note * Telephone Encounter - Queenie hJaveri RN - 03/29/2024 5:07 PM EST Pt's Pat calling in for refill on pt's Metformin. She states the directions on the bottle say to take one tablet a day with breakfast. She states they were told to take 2 tablets daily-one in the morning and one in the evening. In review of [facility], note found from 02/02/[address] Arce gave instructions to take 2 a day. Pt's HgbA1c is now down to 6.9 on 03/22/24 from 8.2 on 01/30/24. states since she has been doubling up on the prescription, they need a refill sent to [facility] [place] in [place]. Pt is scheduled for hip replacement on 04/08/24. [facility]02-06-2025 Telephone encounter Note* Telephone Encounter - Melquiades Almazan PSS - 03/25/2024 6:31 AM EST TOTAL JOINT COMPLETE CARE PROGRAM PRE-OPERATIVE TEACHING Service Date: 03/25/2024 Service Time: 11:45 AM Date of : 1950 Gender: male Date of Surgery: 04/08/24 Procedure: Right Total Hip Replacement ant. Complete Care Program was discussed with the patient: Inspector Eyeglass Identification: Patient identified a home care attendant to help when discharged to home: Home Environment: Home Layout: Ranch, Entry Steps: 0, Bedroom Location: 1st floor, Bathroom Location: 1st floor, and tub shower. Pt owns walker, crutches, cane, tall toilets and shower chair, lift chair. Discussed with patient importance of attending joint education class and provided date and times ofclass: YES declined. Patient received Joint Education Binder: Yes Patient plans discharge home with [facility]. SIGNATURE: MEGHA Rodas PATIENT NAME: Destiney Ocampo DATE: March 25, 2024 TIME: 6:31 AM [facility]02-06-2025 Miscellaneous Notes* Telephone Encounter - Melquiades Almazan PSS - 03/25/2024 6:31 AM EST TOTAL JOINT COMPLETE CARE PROGRAM PRE-OPERATIVE TEACHING Service Date: 03/25/2024 Service Time: 11:45 AM Date of : 1950 Gender: male Date of Surgery: 04/08/24 Procedure: Right Total Hip Replacement ant. Complete Care Program was discussed with the patient: Inspector Eyeglass Identification: Patient identified a home care attendant to help when discharged to home: Home Environment: Home Layout: Ranch, Entry Steps: 0, Bedroom Location: 1st floor, Bathroom Location: 1st floor, and tub shower. Pt owns walker, crutches, cane, tall toilets and shower chair, lift chair. Discussed with patient importance of attending joint education class and provided date and times ofclass: YES declined. Patient received Joint Education Binder: Yes Patient plans discharge home with [facility]. SIGNATURE: MEGHA Rodas PATIENT NAME: Destiney Ocampo DATE: March 25, 2024 TIME: 6:31 AM documented in this encounterEast [facility] Hospital02-03-2025 Instructions* Patient Instructions* Siomara Luong APRN.JOHN - 03/22/2024 9:15 AM EST Images from the original note were not included. [facility] PATIENT PREOPERATIVE INSTRUCTIONS Nakul Maddox* has scheduled you for your procedure at this surgery center: [facility]: [phone] -- [address] [address]. Please read below carefully for your personalized instructions. Dietary Restrictions: - No solid food after midnight. - You may have 12 ounces of clear liquids (water, clear juices such as apple juice or gatorade, carbonated beverages, clear tea, black coffee, jello) until 2 hours before scheduled arrival at facility. Medications: Unless instructed differently below, stay on all of your medications until your surgery. If you start any new medications after today's visit, please contact your surgeon. Pre-Surgery Med Instructions Medication Instructions MELOXICAM ORAL Stop 7 days before surgery mupirocin (BACTROBAN) 2 % ointment As directed cyanocobalamin, vitamin B-12, (VITAMIN B-12 ORAL) Stop 7 days before surgery FOLIC ACID ORAL Stop 7 days before surgery fluticasone propionate (FLONASE NASAL) IF needed ketoconazole (NIZORAL) 2 % cream Do not take the day of surgery metFORMIN ER (GLUCOPHAGE XR) 500 mg 24 hr tablet Do not take the day of surgery metoprolol succinate ER (TOPROL XL) 25 mg 24 hr tablet Take the day of surgery with a small sip of water omeprazole (PRILOSEC) 20 mg capsule Take the day of surgery with a small sip of water nystatin (MYCOSTATIN) powder Do not take the day of surgery ENTRESTO 49-51 mg tablet Take the day of surgery with a small sip of water famotidine (PEPCID) 20 mg tablet Take the day of surgery with a small sip of water Magnesium 250 mg tab Stop 7 days before surgery Cholecalciferol, Vitamin D3, 50 mcg (2,000 unit) cap Stop 7 days before surgery atorvastatin (LIPITOR) 40 mg tablet Take the day of surgery with a small sip of water aspirin 81 mg chewable tablet Stop 7 days before surgery COMPOUNDED PRESCRIPTION Lancets lancets blood sugar diagnostic (BLOOD GLUCOSE TEST) test strip Blood-Glucose Meter monitoring kit DOCUSATE CALCIUM (STOOL SOFTENER ORAL) Do not take the day of surgery If you take any medications for erectile dysfunction-Cialis (Tadalafil), Levitra, Staxyn (Vardenafil) Viagra (Sildenenafil please do not take these for 48 hours before surgery. If you start any new medications after today's visit, please contact the surgeon's office. If you are currently using a ziib-vgf-odci injectable or oral medication for diabetes or weight loss such as Dulaglutide (Trulicity), Exenatide (Byetta, Bydureon), Liraglutide (Victoza, Saxenda), Semaglutide (Ozempic, Wegovy, Rybelsus), or Tirzepatide (Mounjaro), the medicine should be stopped at least 7 days before surgery. These medicines can cause food to remain in your stomach for a very longtime and increase the risks from surgery and anesthesia. Not stopping the medication for a long enough time may result in your surgery being rescheduled. Blood Thinning Medications: - Stop NSAIDS (Ibuprofen, Advil, Aleve, Motrin, Celebrex, Mobic, etc.) 7 days before surgery, as directed by your surgeon. - Stop Aspirin 7 days before surgery, as directed by your surgeon. - Stop ALL herbal and dietary supplements 7 days before surgery. - You may take Tylenol (Acetaminophen) or any of your pain medications that do not contain aspirin or NSAIDS as needed. Important Reminders: - Candy, mints, and tobacco products are NOT permitted the morning of surgery. - Hearing aids, dentures and glasses may be worn the morning of surgery. - NO jewelry, body piercings, makeup, hairpins or contacts are to be worn the day of surgery. If you develop symptoms such as a fever, cold, or flu, or have other changes to your health within TWO DAYS of scheduled surgery or the morning of surgery, please contact the surgery center above. Personal Belongings: -Please have photo ID and insurance cards. -If you do not have a copy of advance directives on file with us, please bring a copy with you on the day of surgery. - Leave ALL valuables and money at home or with family members. - Please bring high-quality footwear, such as sneakers, to the hospital for ambulating post-surgery. For Outpatient Procedures: - YOU MUST HAVE A RESPONSIBLE TECHNICAL LABORATORY ASST TAKE YOU HOME. A CIGARETTE INSPECTOR OR TRANSFORMER ASSEMBLY SUPERVISOR CANNOT BE MADE A RESPONSIBLE TECHNICAL LABORATORY ASST. - We recommend that a responsible person stays with you overnight to take care of you. - You cannot stay in a hotel alone after outpatient surgery. You will not be permitted to have yoursurgery, if you do not have someone to take care of you. Arrival Time for Surgery: - The Surgery Center or hospital where you are having surgery will call the afternoon before surgery (or Friday for Friday surgery) with a scheduled arrival time. - If you have not heard by 4 pm, please contact the surgery center above. Please be aware that emergency situations arise, which may delay or change your surgical time. If this happens, we will notify you as soon as possible and regret any inconvenience. If you already have an Advance Directive, please fax a copy to [phone] or email to for it to be added to your chart. If you do not have an Advance Directive, you can find the appropriate form and more information at [email or web address]. We recommend that youcomplete the Advance Directive form found on the website and bring it with you the day of your surgery. It can be witnessed and scanned into your chart that day. Siomara Luong APRN.CNP [facility] History and physical note * Siomara Luong APRN.CNP - 03/22/2024 9:12 AM EST Images from the original note were not included. [facility] HISTORY AND PHYSICAL EXAMINATION SERVICE DATE: 03/22/2024 SERVICE TIME: 11:04 AM PRIMARY CARE PHYSICIAN: Keren Arce MD Assessment Patient has the following medical conditions which may affect michelle-operative course: Cardiomyopathy (HCC) Assessment: controlled on rx, improved EF 45-% to 55% (echo 2021 per warehouse attendant note) after Entresto. Following [facility], last OV scanned into [facility] Coronary artery 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 angina pectoris Assessment: mild to moderate 2021 heart cath, c/w daily ASA, statin and BB. Denies CP, palpitations, sob, new or worsening cardiac symptoms Hypertension Assessment: controlled on rx Last 14 BP Last 14 Encounter BP Readings: Date: BP: 03/22/2024 128/80 01/30/2024 118/74 01/27/2024 105/78 12/24/2023 111/69 10/15/2023 106/68 03/30/2023 135/85 10/02/2022 110/72 07/26/2022 130/76 06/04/2022 91/73 05/09/2022 130/88 04/01/2022 110/72 11/20/2021 100/54 08/10/2021 118/72 01/01/2021 148/74 PURE HYPERCHOLESTEROLEM Assessment: c/w statin Diaphragmatic hernia Assessment: no hx surgical interventions RAJI (obstructive sleep apnea) AHI 39 Assessment: non-compliant with CPAP Pulmonary nodule/lesion, solitary Assessment: surveillance, last CT chest 2021 showing calcified granuloma ESOPHAGITIS REFLUX Assessment: controlled on rx Diabetes mellitus type 2, controlled, without complications (HCC) Assessment: controlled with oral agent, surgery initially Cx due to elevated A1c, new A1c pending Hemoglobin A1C (%) Date Value 01/30/2024 8.2 10/11/2020 7.5 Prostate cancer (HCC) Assessment: s/p prostatectomy, denies radiation Complaints of memory disturbance Assessment: following neurology Rizzo Activity Status Index: METS: Climb a flight of stairs or walk up a hill (5.50 METs) DASI Score: 5.5 Patient denies any chest pain or undue shortness of breath with the above physical activity. Clinical Frailty Scale: 3. Well, with treated comorbid disease STOP-Bang Score: Has or is being treated for high blood pressure Patient over 50 years old Has a large neck Male patient Denies snoring loudly Denies feeling tired, fatigued, or sleepy during the daytime Has not been observed to stop breathing or choking/gasping during sleep BMI less than or equal to 35 kg/m^2 STOP-Bang Score: 4 [id number] Score: Age: 65-74 Sex: male CHF history: No Hypertension history: Yes Stroke/TIA/thromboembolism history: No Vascular disease history: No Diabetes history: Yes [id number] Score: 3 ARISCAT Score: Age: 51-80 Preoperative SpO2: >=96% Respiratory infection in the last month: No Preoperative anemia: No Surgical incision: peripheral Duration of surgery: 2-3 hrs Emergency procedure: No ARISCAT Score: 19 ANESTHESIA FINDINGS: Intubation History: No history of difficult intubation Significant Anesthesia Considerations: none Airway History: No history of difficult airway I - PHYSICAL EVALUATION AIRWAY Patient intubated: No. Tracheostomy tube not present Mallampati: III. TM distance: >3 FB. Neck ROM: full ROM without neurological symptoms. Mouth opening: adequate. Short neck: no. Thick neck: yes Vigil present: yes Lip Bite Test: I Microretrognathia/Micronagthia/Recessed Chin: No DENTAL Dental findings: teeth intact. Additional comments: +crowns/back. II - ANESTHESIA PLAN Anesthetic Plan: other Anesthetic plan additional comments: *PACC/TCI - anesthesia choice. Beta Gino Monitoring Plan Post Procedure Analgesic Plan Prepared for Surgery: NOT optimally prepared for surgery. Labs CONSULTS: Patient does not require consults for optimization at this time Planned Anesthetic: other anesthesia choice The Following Tests/Procedures Have Been Initiated: Orders Placed This Encounter >CBC + AUTO DIFF Standing Status: Future Number of Occurrences: 1 Standing Expiration Date: 06/21/2024 >CMP Standing Status: Future Number of Occurrences: 1 Standing Expiration Date: 06/21/2024 >HGB A1c (Today or soon) Standing Status: Future Number of Occurrences: 1 Standing Expiration Date: 06/21/2024 Type and Screen, 30 day Standing Status: Future Number of Occurrences: 1 Standing Expiration Date: 06/21/2024 Scheduling Instructions: A 30-day Type and Screen test has been ordered for you. This should be scheduled to be collected noearlier than 29 days before your scheduled procedure. If you receive blood products (red blood cells, platelets, plasma, cryoprecipitate) at any point before your procedure or are a female and become, please inform your provider. This test will be canceled, and a standard type and screen will need to be ordered to be collected within 3 days of your procedure. Order Specific Question: [facility] or Procedure: Answer: [place] Order Specific Question: Status of surgery/procedure: Answer: Scheduled Order Specific Question: Date of surgery/procedure: Answer: 04/08/2024 MELOXICAM ORAL Sig: DAILY mupirocin (BACTROBAN) 2 % ointment Sig: Apply 0.5 inch with cotton swab (Q-tip) to each nostril in the morning and evening for 5 days prior to and including day of surgery. Dispense: 22 g Refill: 0 REASON FOR VISIT: Destiney Ocampo is a 74 year old male who is scheduled for Procedure(s): ARTHROPLASTY ACETABULAR AND PROX FEM PROSTH TOTAL HIP ANTERIOR APPROACH (Right) at the request of Dr. Nakul Maddox for consultation. My final recommendation will be communicated back to the requesting physician by way of shared medical record or letter. Subjective The patient has the following: COVID-19 Immunization Status Overdue - Covid-19 Vaccine () Overdue since 10/19/2023 01/07/2023 Imm Admin: COVID-19 vaccine, age 12+ yr, season (PFIZER-BIONTECH) 11/10/2021 Imm Admin: COVID-19 vaccine, age 12+ yr, bivalent (PFIZER-BIONTECH) 06/17/2021 Imm Admin: COVID-19 original vaccine, age 12+ yr, monovalent (fromAtoB- BIONTECH - [place] TOP) Only the first 3 history entries have been loaded, but more history exists. CHIEF COMPLAINT: Pre-op exam HPI: Destiney Ocampo is a 74 year old seen for PAC due to scheduled above surgery because of OA right hip. 12/10/2023, Breonna Polk PA-C Destiney Ocampo is a 73 year old patient . 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 The problem began limiting activities 3+ years ago. Destiney reports a current pain level of 9 (Hip-Right). FALL RISK: Destiney is not currently at risk for falls. PROMIS Physical Function Score No data to display FUNCTIONAL STATUS: Walk indoors, such as around the house (1.75 METs) Do light work around the house, such as dusting or washing dishes (2.70 METs) Take care of self, that is eating, dressing, bathing, using the toilet (2.75 METs) Walk a block or two on level ground (2.75 METs) Do moderate work around the house such as vacuuming, sweeping floors, or carrying in groceries (3.50 METs) Do yardwork, such as raking leaves, weeding,or pushing a power mower (4.50 METs) Climb a flight of stairs or walk up a hill (5.50 METs) Participate in moderate recreational activities, such as golf, bowling, dancing, doubles tennis, orthrowing a baseball or football (6.00 METs) PREVIOUS TREATMENTS: Current Anti-Inflammatory medications: meloxicam Past anti-inflammatory medications (not necessarily for this reason for visit): meloxicam, naproxen, prednisone Attempted Weight Loss Medical: RX NSAIDS for 3 Months or Greater (meloxicam (Mobic) and ibuprofen (Motrin)), Steroid Injections Right Hip REVIEW OF SYSTEMS: General: No weight loss, malaise or fevers. 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 No neurological symptoms or problems. Respiratory: +former smoker Positive for: obstructive sleep apnea and CPAP/BiPAP noncompliant. Negative for: asthma, COPD, current cough, dyspnea, pneumonia within 6 weeks, tobacco use and URI < 2 weeks. Cardiovascular: Positive for: anticoagulation therapy, CAD, hyperlipidemia and hypertension [place], The following tests and/or procedures were not performed: cardiac stents. Negative for: abdominal aortic aneurysm, AICD/PPM, angina, arrhythmia, atrial fibrillation, chest pain, CHF, congenital heart defect, DVT/PE, recent ID, murmur/valvular heart disease, open heart surgery and valve surgery. GI: Positive for: GERD (rx as needed) Negative for: abdominal pain, dysphagia, diverticulitis, hepatitis, irritable bowel syndrome, inflammatory bowel disease, liver disease, nausea, pancreatitis, vomiting and ETOH >2 drinks/day. : No history of dysuria, frequency or incontinence, stones or chronic kidney disease. No difficulty urinating, nocturia > 1 time per night or hematuria. Endocrine: Positive for: diabetes mellitus. Patient's diabetes mellitus is controlled by oral agents. Negative for: hypothyroidism. Hematology: Positive for: chronic anti-coagulation/platelet meds. Patient is on anti- coagulation/platelet medication(s): Aspirin. Negative for: anemia, bruises/bleeds easily, thrombocytopenia and transfusion of at least 4 units within 72 hours prior to surgery. Oncology: +prostate CA s/p prostatectomy Psych: Positive for: depression. Musculoskeletal: See HPI. Positive for: back pain. Skin: Negative for lesions, rash and itching. Implanted Devices: No implanted devices. PAST MEDICAL HISTORY Diagnosis Date Abdominal pain, other specified site Benign neoplasm of colon Chronic fatigue 05/22/2023 Fatigue and malaise noted Diaphragmatic hernia without mention of obstruction or gangrene Diplopia 2018 Started before 2018; had workup in 2018 due to more frequent episodes of diplopia Diverticulosis of colon (without mention of hemorrhage) Diverticulosis Dysthymic disorder Depression (non-psychotic) Headaches 05/22/2023 Chronic for years RAJI (obstructive sleep apnea) Pure hypercholesterolemia PAST SURGICAL HISTORY Procedure Laterality Date COLONOSCOPY FLX DX W/COLLJ SPEC WHEN PFRMD Colonoscopy COLONOSCOPY FLX DX W/COLLJ SPEC WHEN PFRMD 01/18/2011 Colonoscopy COLSC FLX W/RMVL OF TUMOR POLYP LESION SNARE TQ 04/24/07 Diverticulosis and prox. sigmoid polyp EGD TRANSORAL BIOPSY SINGLE/MULTIPLE 04/24/07 HH, esophagitis,gastritis ESOPHAGOGASTRODUODENOSCOPY TRANSORAL DIAGNOSTIC 10/30/2012 EGD HEART CATHETERIZATION 2012 LITHOTRIPSY XTRCORP SHOCK WAVE Lithotripsy FAMILY HISTORY Problem Relation Age of Onset Psychiatry Father suicide age 44 Diabetes Mother COPD Mother Social History Tobacco Use Smoking status: Former Current packs/day: 0.00 Average packs/day: 1 pack/day for 30.0 years (30.0 ttl pk-yrs) Types: Cigarettes Start date: 12/18/1974 Quit date: 12/18/2004 Years since quittin.2 Smokeless tobacco: Former Types: Chew Tobacco comments: less than 1/2 pack daily Vaping Use Vaping status: Never Used Substance Use Topics Alcohol use: Yes Comment: rarely beer- socially Drug use: No Prior to Admission medications as of 03/22/24 0915 Medication Sig Last Dose Taking MELOXICAM ORAL DAILY Taking Yes mupirocin (BACTROBAN) 2 % ointment Apply 0.5 inch with cotton swab (Q-tip) to each nostril in the morning and evening for 5 days prior to and including day of surgery. Taking Yes cyanocobalamin, vitamin B-12, (VITAMIN B-12 ORAL) Take by mouth. Taking Yes FOLIC ACID ORAL Take by mouth. Taking Yes fluticasone propionate (FLONASE NASAL) Use in the nose. Taking Yes ketoconazole (NIZORAL) 2 % cream Apply 1 application to affected area two times a day. Continue for1 week after rash resolves. Taking Yes metFORMIN ER (GLUCOPHAGE XR) 500 mg 24 hr tablet Take 1 tablet by mouth daily with breakfast. Taking Yes metoprolol succinate ER (TOPROL XL) 25 mg 24 hr tablet Take 1 tablet by mouth once daily. Taking Yes omeprazole (PRILOSEC) 20 mg capsule Take 1 capsule by mouth two times a day. Taking Yes nystatin (MYCOSTATIN) powder Apply 1 application to affected area four times daily. Continue to usefor a week after rash resolves. Use as needed for recurrences Taking Yes ENTRESTO 49-51 mg tablet Take 1 tablet by mouth two times a day. (getting from patient assistance) Taking Yes famotidine (PEPCID) 20 mg tablet Take 1 tablet by mouth at bedtime as needed. Taking Yes Magnesium 250 mg tab Take 1 tablet by mouth two times a day. Taking Yes Cholecalciferol, Vitamin D3, 50 mcg (2,000 unit) cap Take 1 capsule by mouth once daily. Taking Yes atorvastatin (LIPITOR) 40 mg tablet TAKE 1 TABLET BY MOUTH EVERY DAY FOR 90 DAYS Taking Yes aspirin 81 mg chewable tablet Take 81 mg by mouth. Taking Yes COMPOUNDED PRESCRIPTION Generic Glucometer - I each 50 strips and lancets. Re: Diabetes mellitus controlled with hypoglycemia. Taking Yes Lancets lancets Test blood sugar(s) 1-2 times daily or as directed. Dx: Type 2 DM - Controlled E11.9 Insulin: No Taking Yes blood sugar diagnostic (BLOOD GLUCOSE TEST) test strip Test blood sugar(s) 1-2 times daily or as directed. Dx: Type 2 DM - Controlled E11.9 Insulin: No Taking Yes Blood-Glucose Meter monitoring kit Glucose Meter of Choice (per insurance coverage)- Kit - Dx: Type2 DM - Controlled E11.9, Test 1-2 times a day or as directed. No insulin Taking Yes DOCUSATE CALCIUM (STOOL SOFTENER ORAL) Take by mouth as needed. Taking Yes No medication comments found. ALLERGIES Allergen Reactions Lisinopril Cough Objective PHYSICAL EXAM: General: alert and oriented (x3), healthy appearance and obese. Pertinent negatives noted - not distressed. Skin: normal color, no rash or lesions. HEENT: EOM intact and pupils equal round. Pertinent negatives noted - no carotid bruit. Cardiovascular: regular rate and rhythm, normal S1 and S2, no rub, murmurs, or gallop. Respiratory: normal breath sounds, no wheezes or crackles. No chest wall deformity or tenderness. Abdomen: soft. Pertinent negatives noted - not tender. Extremities: no deformity, no edema or tenderness, no joint swelling or clubbing. Neurological: normal cognition and motor skills. Gait normal. No weakness or sensory deficit. PAIN ASSESSMENT: Pain Pain Level: 5 Pain Location: Hip-Right Description: Aching Duration Amount of Time: 5 Duration Units: Years Frequency: Continuous Intervention/Comfort measure: Medication VITALS: BP 128/80 Pulse 84 Temp (Src) 96.5 (Temporal) Resp 14 Ht 5' 6 (1.68m) Wt 215 lb (97.5kg) SpO2 97% BMI 34.72 kg/(m^2). Diagnostic tests reviewed for today's visit: Lab Value Units Date High Low HB 14.7 g/dL 03/22/2024 17.0 13.0 HCT 45.9 % 03/22/2024 51.0 39.0 WBC 8.32 k/uL 03/22/2024 11.00 3.70 PLT 144 k/uL 03/22/2024 400 150 NA 139 mmol/L 03/22/2024 144 136 K 5.0 mmol/L 03/22/2024 5.1 3.7 GLUC 107 mg/dL 03/22/2024 99 74 BUN 17 mg/dL 03/22/2024 24 9 CREAT 0.66 mg/dL 03/22/2024 1.22 0.73 PTSEC No results within date range. INR No results within date range. APTT No results within date range. ALT 14 U/L 03/22/2024 54 10 AST 15 U/L 03/22/2024 40 14 TBILI 1.1 mg/dL 03/22/2024 1.3 0.2 TSH 2.390 mIU/L 12/24/2023 4.200 0.270 Lab Value Units Date High Low HCGQT No results within date range. UHCG No results within date range. HCG, BODY* No results within date range. Lab Value Units Date High Low ABORHD No results within date range. ABSCREEN No results within date range. Hemoglobin A1C (%) Date Value 01/30/2024 8.2 10/07/2023 6.8 04/07/2023 6.7 09/26/2022 6.5 03/26/2022 7.2 10/11/2020 7.5 02/11/2018 6.2 09/04/2017 6.2 05/09/2017 6.9 01/07/2017 6.0 Hemoglobin A1C (POCT) (%) Date Value 06/26/2020 7.0 02/24/2019 7.1 11/19/2018 7.4 Recent Results (from the past 8760 hour(s)) ECG COMPLETE Collection Time: 01/30/24 11:56 AM Result Value Ventricular Rate 62 Atrial Rate 62 P-R Interval 148 QRS Duration 98 QT Interval 418 QTC Calculation (Bazett) 424 Calculated P Seymour 44 Calculated R Seymour -6 Calculated T Seymour 43 Impression NORMAL SINUS RHYTHM INCOMPLETE RIGHT BUNDLE BRANCH BLOCK BORDERLINE ECG Confirmed by MD RODRIGUEZ GREGORY () on 02/02/2024 10:07:28 AM No results found for this or any previous visit (from the past 70193 hour(s)). Instructions Given to Patient: Instructions located in the after visit summary. Patient given verbal and written preop instructions and voices comprehension and compliance. SIGNATURE: Siomara Luong APRN.CNP PATIENT NAME: Destiney Ocampo DATE: March 22, 2024 TIME: 9:12 AM PAGER/CONTACT #: [facility] History and physical note* Siomara Luong APRN.CNP - 03/22/2024 9:12 AM EST Images from the original note were not included. [facility] HISTORY AND PHYSICAL EXAMINATION SERVICE DATE: 03/22/2024 SERVICE TIME: 11:04 AM PRIMARY CARE PHYSICIAN: Keren Arce MD Assessment Patient has the following medical conditions which may affect michelle-operative course: Cardiomyopathy (HCC) Assessment: controlled on rx, improved EF 45-% to 55% (echo 2021 per warehouse attendant note) after Entresto. Following [facility], last OV scanned [facility] Coronary artery 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 angina pectoris Assessment: mild to moderate 2021 heart cath, c/w daily ASA, statin and BB. Denies CP, palpitations, sob, new or worsening cardiac symptoms Hypertension Assessment: controlled on rx Last 14 BP Last 14 Encounter BP Readings: Date: BP: 03/22/2024 128/80 01/30/2024 118/74 01/27/2024 105/78 12/24/2023 111/69 10/15/2023 106/68 03/30/2023 135/85 10/02/2022 110/72 07/26/2022 130/76 06/04/2022 91/73 05/09/2022 130/88 04/01/2022 110/72 11/20/2021 100/54 08/10/2021 118/72 01/01/2021 148/74 PURE HYPERCHOLESTEROLEM Assessment: c/w statin Diaphragmatic hernia Assessment: no hx surgical interventions RAJI (obstructive sleep apnea) AHI 39 Assessment: non-compliant with CPAP Pulmonary nodule/lesion, solitary Assessment: surveillance, last CT chest 2021 showing calcified granuloma ESOPHAGITIS REFLUX Assessment: controlled on rx Diabetes mellitus type 2, controlled, without complications (HCC) Assessment: controlled with oral agent, surgery initially Cx due to elevated A1c, new A1c pending Hemoglobin A1C (%) Date Value 01/30/2024 8.2 10/11/2020 7.5 Prostate cancer (HCC) Assessment: s/p prostatectomy, denies radiation Complaints of memory disturbance Assessment: following neurology Rizzo Activity Status Index: METS: Climb a flight of stairs or walk up a hill (5.50 METs) DASI Score: 5.5 Patient denies any chest pain or undue shortness of breath with the above physical activity. Clinical Frailty Scale: 3. Well, with treated comorbid disease STOP-Bang Score: Has or is being treated for high blood pressure Patient over 50 years old Has a large neck Male patient Denies snoring loudly Denies feeling tired, fatigued, or sleepy during the daytime Has not been observed to stop breathing or choking/gasping during sleep BMI less than or equal to 35 kg/m^2 STOP-Bang Score: 4 [id number] Score: Age: 65-74 Sex: male CHF history: No Hypertension history: Yes Stroke/TIA/thromboembolism history: No Vascular disease history: No Diabetes history: Yes [id number] Score: 3 ARISCAT Score: Age: 51-80 Preoperative SpO2: >=96% Respiratory infection in the last month: No Preoperative anemia: No Surgical incision: peripheral Duration of surgery: 2-3 hrs Emergency procedure: No ARISCAT Score: 19 ANESTHESIA FINDINGS: Intubation History: No history of difficult intubation Significant Anesthesia Considerations: none Airway History: No history of difficult airway I - PHYSICAL EVALUATION AIRWAY Patient intubated: No. Tracheostomy tube not present Mallampati: III. TM distance: >3 FB. Neck ROM: full ROM without neurological symptoms. Mouth opening: adequate. Short neck: no. Thick neck: yes Vigil present: yes Lip Bite Test: I Microretrognathia/Micronagthia/Recessed Chin: No DENTAL Dental findings: teeth intact. Additional comments: +crowns/back. II - ANESTHESIA PLAN Anesthetic Plan: other Anesthetic plan additional comments: *PACC/TCI - anesthesia choice. Beta Gino Monitoring Plan Post Procedure Analgesic Plan Prepared for Surgery: NOT optimally prepared for surgery. Labs CONSULTS: Patient does not require consults for optimization at this time Planned Anesthetic: other anesthesia choice The Following Tests/Procedures Have Been Initiated: Orders Placed This Encounter >CBC + AUTO DIFF Standing Status: Future Number of Occurrences: 1 Standing Expiration Date: 06/21/2024 >CMP Standing Status: Future Number of Occurrences: 1 Standing Expiration Date: 06/21/2024 >HGB A1c (Today or soon) Standing Status: Future Number of Occurrences: 1 Standing Expiration Date: 06/21/2024 Type and Screen, 30 day Standing Status: Future Number of Occurrences: 1 Standing Expiration Date: 06/21/2024 Scheduling Instructions: A 30-day Type and Screen test has been ordered for you. This should be scheduled to be collected noearlier than 29 days before your scheduled procedure. If you receive blood products (red blood cells, platelets, plasma, cryoprecipitate) at any point before your procedure or are a female and become, please inform your provider. This test will be canceled, and a standard type and screen will need to be ordered to be collected within 3 days of your procedure. Order Specific Question: [facility] Surgery or Procedure: Answer: [place] Order Specific Question: Status of surgery/procedure: Answer: Scheduled Order Specific Question: Date of surgery/procedure: Answer: 04/08/2024 MELOXICAM ORAL Sig: DAILY mupirocin (BACTROBAN) 2 % ointment Sig: Apply 0.5 inch with cotton swab (Q-tip) to each nostril in the morning and evening for 5 days prior to and including day of surgery. Dispense: 22 g Refill: 0 REASON FOR VISIT: Destiney Ocampo is a 74 year old male who is scheduled for Procedure(s): ARTHROPLASTY ACETABULAR AND PROX FEM PROSTH TOTAL HIP ANTERIOR APPROACH (Right) at the request of Dr. Nakul Maddox for consultation. My final recommendation will be communicated back to the requesting physician by way of shared medical record or letter. Subjective The patient has the following: COVID-19 Immunization Status Overdue - Covid-19 Vaccine (2023- season) Overdue since 10/19/2023 01/07/2023 Imm Admin: COVID-19 vaccine, age 12+ yr, 2022- season (PFIZER-BIONTECH) 11/10/2021 Imm Admin: COVID-19 vaccine, age 12+ yr, bivalent (PFIZER-BIONTECH) 06/17/2021 Imm Admin: COVID-19 original vaccine, age 12+ yr, monovalent (PFIZER- BIONTECH - [place] TOP) Only the first 3 history entries have been loaded, but more history exists. CHIEF COMPLAINT: Pre-op exam HPI: Destiney Ocampo is a 74 year old seen for PAC due to scheduled above surgery because of OA right hip. 12/10/2023, Breonna Polk PA-C Destiney Ocampo is a 73 year old patient . 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 The problem began limiting activities 3+ years ago. Destiney reports a current pain level of 9 (Hip-Right). FALL RISK: Destiney is not currently at risk for falls. PROMIS Physical Function Score No data to display FUNCTIONAL STATUS: Walk indoors, such as around the house (1.75 METs) Do light work around the house, such as dusting or washing dishes (2.70 METs) Take care of self, that is eating, dressing, bathing, using the toilet (2.75 METs) Walk a block or two on level ground (2.75 METs) Do moderate work around the house such as vacuuming, sweeping floors, or carrying in groceries (3.50 METs) Do yardwork, such as raking leaves, weeding,or pushing a power mower (4.50 METs) Climb a flight of stairs or walk up a hill (5.50 METs) Participate in moderate recreational activities, such as golf, bowling, dancing, doubles tennis, orthrowing a baseball or football (6.00 METs) PREVIOUS TREATMENTS: Current Anti-Inflammatory medications: meloxicam Past anti-inflammatory medications (not necessarily for this reason for visit): meloxicam, naproxen, prednisone Attempted Weight Loss Medical: RX NSAIDS for 3 Months or Greater (meloxicam (Mobic) and ibuprofen (Motrin)), Steroid Injections Right Hip REVIEW OF SYSTEMS: General: No weight loss, malaise or fevers. 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 No neurological symptoms or problems. Respiratory: +former smoker Positive for: obstructive sleep apnea and CPAP/BiPAP noncompliant. Negative for: asthma, COPD, current cough, dyspnea, pneumonia within 6 weeks, tobacco use and URI < 2 weeks. Cardiovascular: Positive for: anticoagulation therapy, CAD, hyperlipidemia and hypertension Patient's last office visit with warehouse [place], The following tests and/or procedures were not performed: cardiac stents. Negative for: abdominal aortic aneurysm, AICD/PPM, angina, arrhythmia, atrial fibrillation, chest pain, CHF, congenital heart defect, DVT/PE, recent ID, murmur/valvular heart disease, open heart surgery and valve surgery. GI: Positive for: GERD (rx as needed) Negative for: abdominal pain, dysphagia, diverticulitis, hepatitis, irritable bowel syndrome, inflammatory bowel disease, liver disease, nausea, pancreatitis, vomiting and ETOH >2 drinks/day. : No history of dysuria, frequency or incontinence, stones or chronic kidney disease. No difficulty urinating, nocturia > 1 time per night or hematuria. Endocrine: Positive for: diabetes mellitus. Patient's diabetes mellitus is controlled by oral agents. Negative for: hypothyroidism. Hematology: Positive for: chronic anti-coagulation/platelet meds. Patient is on anti- coagulation/platelet medication(s): Aspirin. Negative for: anemia, bruises/bleeds easily, thrombocytopenia and transfusion of at least 4 units within 72 hours prior to surgery. Oncology: +prostate CA s/p prostatectomy Psych: Positive for: depression. Musculoskeletal: See HPI. Positive for: back pain. Skin: Negative for lesions, rash and itching. Implanted Devices: No implanted devices. PAST MEDICAL HISTORY Diagnosis Date Abdominal pain, other specified site Benign neoplasm of colon Chronic fatigue 05/22/2023 Fatigue and malaise noted Diaphragmatic hernia without mention of obstruction or gangrene Diplopia 2018 Started before 2018; had workup in 2018 due to more frequent episodes of diplopia Diverticulosis of colon (without mention of hemorrhage) Diverticulosis Dysthymic disorder Depression (non-psychotic) Headaches 05/22/2023 Chronic for years RAJI (obstructive sleep apnea) Pure hypercholesterolemia PAST SURGICAL HISTORY Procedure Laterality Date COLONOSCOPY FLX DX W/COLLJ SPEC WHEN PFRMD Colonoscopy COLONOSCOPY FLX DX W/COLLJ SPEC WHEN PFRMD 01/18/2011 Colonoscopy COLSC FLX W/RMVL OF TUMOR POLYP LESION SNARE TQ 04/24/07 Diverticulosis and prox. sigmoid polyp EGD TRANSORAL BIOPSY SINGLE/MULTIPLE 04/24/07 HH, esophagitis,gastritis ESOPHAGOGASTRODUODENOSCOPY TRANSORAL DIAGNOSTIC 10/30/2012 EGD HEART CATHETERIZATION 2012 LITHOTRIPSY XTRCORP SHOCK WAVE Lithotripsy FAMILY HISTORY Problem Relation Age of Onset Psychiatry Father suicide age 44 Diabetes Mother COPD Mother Social History Tobacco Use Smoking status: Former Current packs/day: 0.00 Average packs/day: 1 pack/day for 30.0 years (30.0 ttl pk-yrs) Types: Cigarettes Start date: 12/18/1974 Quit date: 12/18/2004 Years since quittin.2 Smokeless tobacco: Former Types: Chew Tobacco comments: less than 1/2 pack daily Vaping Use Vaping status: Never Used Substance Use Topics Alcohol use: Yes Comment: rarely beer- socially Drug use: No Prior to Admission medications as of 03/22/24 0915 Medication Sig Last Dose Taking MELOXICAM ORAL DAILY Taking Yes mupirocin (BACTROBAN) 2 % ointment Apply 0.5 inch with cotton swab (Q-tip) to each nostril in the morning and evening for 5 days prior to and including day of surgery. Taking Yes cyanocobalamin, vitamin B-12, (VITAMIN B-12 ORAL) Take by mouth. Taking Yes FOLIC ACID ORAL Take by mouth. Taking Yes fluticasone propionate (FLONASE NASAL) Use in the nose. Taking Yes ketoconazole (NIZORAL) 2 % cream Apply 1 application to affected area two times a day. Continue for1 week after rash resolves. Taking Yes metFORMIN ER (GLUCOPHAGE XR) 500 mg 24 hr tablet Take 1 tablet by mouth daily with breakfast. Taking Yes metoprolol succinate ER (TOPROL XL) 25 mg 24 hr tablet Take 1 tablet by mouth once daily. Taking Yes omeprazole (PRILOSEC) 20 mg capsule Take 1 capsule by mouth two times a day. Taking Yes nystatin (MYCOSTATIN) powder Apply 1 application to affected area four times daily. Continue to usefor a week after rash resolves. Use as needed for recurrences Taking Yes ENTRESTO 49-51 mg tablet Take 1 tablet by mouth two times a day. (getting from patient assistance) Taking Yes famotidine (PEPCID) 20 mg tablet Take 1 tablet by mouth at bedtime as needed. Taking Yes Magnesium 250 mg tab Take 1 tablet by mouth two times a day. Taking Yes Cholecalciferol, Vitamin D3, 50 mcg (2,000 unit) cap Take 1 capsule by mouth once daily. Taking Yes atorvastatin (LIPITOR) 40 mg tablet TAKE 1 TABLET BY MOUTH EVERY DAY FOR 90 DAYS Taking Yes aspirin 81 mg chewable tablet Take 81 mg by mouth. Taking Yes COMPOUNDED PRESCRIPTION Generic Glucometer - I each 50 strips and lancets. Re: Diabetes mellitus controlled with hypoglycemia. Taking Yes Lancets lancets Test blood sugar(s) 1-2 times daily or as directed. Dx: Type 2 DM - Controlled E11.9 Insulin: No Taking Yes blood sugar diagnostic (BLOOD GLUCOSE TEST) test strip Test blood sugar(s) 1-2 times daily or as directed. Dx: Type 2 DM - Controlled E11.9 Insulin: No Taking Yes Blood-Glucose Meter monitoring kit Glucose Meter of Choice (per insurance coverage)- Kit - Dx: Type2 DM - Controlled E11.9, Test 1-2 times a day or as directed. No insulin Taking Yes DOCUSATE CALCIUM (STOOL SOFTENER ORAL) Take by mouth as needed. Taking Yes No medication comments found. ALLERGIES Allergen Reactions Lisinopril Cough Objective PHYSICAL EXAM: General: alert and oriented (x3), healthy appearance and obese. Pertinent negatives noted - not distressed. Skin: normal color, no rash or lesions. HEENT: EOM intact and pupils equal round. Pertinent negatives noted - no carotid bruit. Cardiovascular: regular rate and rhythm, normal S1 and S2, no rub, murmurs, or gallop. Respiratory: normal breath sounds, no wheezes or crackles. No chest wall deformity or tenderness. Abdomen: soft. Pertinent negatives noted - not tender. Extremities: no deformity, no edema or tenderness, no joint swelling or clubbing. Neurological: normal cognition and motor skills. Gait normal. No weakness or sensory deficit. PAIN ASSESSMENT: Pain Pain Level: 5 Pain Location: Hip-Right Description: Aching Duration Amount of Time: 5 Duration Units: Years Frequency: Continuous Intervention/Comfort measure: Medication VITALS: BP 128/80 Pulse 84 Temp (Src) 96.5 (Temporal) Resp 14 Ht 5' 6 (1.68m) Wt 215 lb (97.5kg) SpO2 97% BMI 34.72 kg/(m^2). Diagnostic tests reviewed for today's visit: Lab Value Units Date High Low HB 14.7 g/dL 03/22/2024 17.0 13.0 HCT 45.9 % 03/22/2024 51.0 39.0 WBC 8.32 k/uL 03/22/2024 11.00 3.70 PLT 144 k/uL 03/22/2024 400 150 NA 139 mmol/L 03/22/2024 144 136 K 5.0 mmol/L 03/22/2024 5.1 3.7 GLUC 107 mg/dL 03/22/2024 99 74 BUN 17 mg/dL 03/22/2024 24 9 CREAT 0.66 mg/dL 03/22/2024 1.22 0.73 PTSEC No results within date range. INR No results within date range. APTT No results within date range. ALT 14 U/L 03/22/2024 54 10 AST 15 U/L 03/22/2024 40 14 TBILI 1.1 mg/dL 03/22/2024 1.3 0.2 TSH 2.390 mIU/L 12/24/2023 4.200 0.270 Lab Value Units Date High Low HCGQT No results within date range. UHCG No results within date range. HCG, BODY* No results within date range. Lab Value Units Date High Low ABORHD No results within date range. ABSCREEN No results within date range. Hemoglobin A1C (%) Date Value 01/30/2024 8.2 10/07/2023 6.8 04/07/2023 6.7 09/26/2022 6.5 03/26/2022 7.2 10/11/2020 7.5 02/11/2018 6.2 09/04/2017 6.2 05/09/2017 6.9 01/07/2017 6.0 Hemoglobin A1C (POCT) (%) Date Value 06/26/2020 7.0 02/24/2019 7.1 11/19/2018 7.4 Recent Results (from the past 8760 hour(s)) ECG COMPLETE Collection Time: 01/30/24 11:56 AM Result Value Ventricular Rate 62 Atrial Rate 62 P-R Interval 148 QRS Duration 98 QT Interval 418 QTC Calculation (Bazett) 424 Calculated P Seymour 44 Calculated R Seymour -6 Calculated T Seymour 43 Impression NORMAL SINUS RHYTHM INCOMPLETE RIGHT BUNDLE BRANCH BLOCK BORDERLINE ECG Confirmed by MD MICHAEL, CHILO () on 02/02/2024 10:07:28 AM No results found for this or any previous visit (from the past 41894 hour(s)). Instructions Given to Patient: Instructions located in the after visit summary. Patient given verbal and written preop instructions and voices comprehension and compliance. SIGNATURE: Siomara Luong APRN.CNP PATIENT NAME: Destiney Ocampo DATE: March 22, 2024 TIME: 9:12 AM PAGER/CONTACT #: [facility] Tele[facility] encounter Note * Telephone Encounter - Dana Demarco LPN - 02/20/2024 10:06 AM EST Images from the original note were not included. Advised patient of MQ messages below, pt verbalized understanding. Geovanna Hoffman PA-C [email or web address] minutes ago (9:05 AM) MQ Take 1000mcg once daily with folate for 6 months. Geovanna Hoffman PA-C You Geovanna Hoffman PA-C2 hours ago (7:36 AM) SB Patient is wanting to know how often would you recommend them taking this medication? Those are thedosage amounts they have but how should they take medication. Dana Demarco LPN February 20, 2024 7:36 AM Geovanna Hoffman PA-C You17 hours ago (4:17 PM) YAIMA This is correct. Complete this for a total of 6 months, we will then redraw again after 6 months. Geovanna Hoffman PA-C [facility]01-03-[facility]25 Miscellaneous Notes* Telephone Encounter - Dana Demarco LPN - 02/20/2024 10:06 AM EST Images from the original note were not included. Advised patient of MQ messages below, pt verbalized understanding. Geovanna Hoffman PA-C You58 minutes ago (9:05 AM) MQ Take 1000mcg once daily with folate for 6 months. Geovanna Hoffman PA-C You Geovanna Hoffman PA-C2 hours ago (7:36 AM) SB Patient is wanting to know how often would you recommend them taking this medication? Those are thedosage amounts they have but how should they take medication. Dana Demarco LPN February 20, 2024 7:36 AM Geovanna Hoffman PA-C [email or web address] hours ago (4:17 PM) MQ This is correct. Complete this for a total of 6 months, we will then redraw again after 6 months. Geovanna Hoffman PA-C * Telephone Encounter - Leigh Casillas RN - 02/19/2024 11:52 AM EST phoned to ask Jabier Hoffman- how much and how often, should pt take B12 and folic acid? Reports she has B12 1000 mcg. Reports she has folic acid 800 mcg. Please advise and phone with reply. [facility] encounter Note * Telephone Encounter - Leigh Casillas RN - 02/19/2024 11:52 AM EST phoned to ask Jabier Hoffman- how much and how often, should pt take B12 and folic acid? Reports she has B12 1000 mcg. Reports she has folic acid 800 mcg. Please advise and phone with reply. [facility]12-20-[facility] Telephone encounter Note* Telephone Encounter - Leigh Casillas RN - 02/06/2024 8:20 AM EST Phoned patient and given provider's message below with verbalized understanding. Pt agreeable. [facility]12-[facility] Miscellaneous Notes* Telephone Encounter - Leigh Casillas RN - 02/06/2024 8:20 AM EST Phoned patient and given provider's message below with verbalized understanding. Pt agreeable. * Telephone Encounter - Keren Arce MD - 02/05/2024 5:42 PM EST May resume 2 pills per day since sugars went up. Metformin does not usually cause low sugars but if has lows again, can go back to 1 pill daily and let me know. Will send new RX for twice daily if tolerates well--let me know if wants RX sent now * Telephone Encounter - Desiree Orlando LPN - 02/03/2024 4:01 PM EST Blood sugar were dropping low and was having episodes of weak and shakiness. He discussed it with office and it was agreed to try just one a day. He mentioned that he has no problem going back to two a day or switching medications all together. * Telephone Encounter - Keren Arce MD - 02/03/2024 3:38 PM EST Why did he decrease the dose of metformin? If because of side effects (like diarrhea), we can try adding another med to control sugars to avoid adverse effects. If no adverse effects, then increase back to BID. If sugars not improving with 1 twice daily, can increase to 3 per day then 4 per day as n eeded. (2-1 or 1-2, then 2-2 for dosing twice daily). * Telephone Encounter - Leena Wright RN - 02/03/2024 8:30 AM EST Pt called and is notified of providers results and instructions. Pt voices understanding. Pt stateshe was told his A1C has to be under [address] Nakul Maddox is doing the surgery. They have it rescheduled for April 08. Pt reports his fasting BS has been running around 180 when it used to run around 150. Pt states provider decreased his Metformin ER 500 mg from take 1 tablet BID with meals to take 1 tablet daily with breakfast. He didn't know if provider would want to increase medication back up. Please call and advise. Leena Wright RN * Telephone Encounter - Keren Arce MD - 02/02/2024 7:55 PM EST Verify if he is checking sugars routinely to make sure keeps fasting sugars under 150 and nonfasting sugars (at least 90 minutes after a meal) under 180. If having trouble keeping sugars down, can work with pharmD to make sure gets HgA1C to goal--verifywhat his orthopedist wants his HgA1C to be under. In the meanwhile, diet should be mostly protein and veggies, limit processed carbs and starchy foods, plus stay as active as able and drink enough water to control sugars better. Follow up with me if needed--noted HgA1C jumped up from 6 range to 8 range. Hemoglobin A1C (%) Date Value 01/30/2024 8.2 10/07/2023 6.8 04/07/2023 6.7 09/26/2022 6.5 03/26/2022 7.2 10/11/2020 7.5 02/11/2018 6.2 09/04/2017 6.2 05/09/2017 6.9 01/07/2017 6.0 Hemoglobin A1C (POCT) (%) Date Value 06/26/2020 7.0 02/24/2019 7.1 11/19/2018 7.4 * Telephone Encounter - Leigh Casillas RN - 02/02/2024 10:41 AM EST Patient reports he was scheduled for hip replacement with [facility] on 02-18-23, but his A1C is too high at8.2, and surgeon moved surgery to 04-08-24, and advised patient to report the A1c to pcp. Asking pcp to advise. States he has been eating holiday foods, but can cut back and re-check labs. [facility] Telephone encounter Note * Telephone Encounter - Keren Arce MD - 02/05/2024 5:42 PM EST May resume 2 pills per day since sugars went up. Metformin does not usually cause low sugars but if has lows again, can go back to 1 pill daily and let me know. Will send new RX for twice daily if tolerates well--let me know if wants RX sent now [facility]12-17-[facility] Telephone encounter Note* Telephone Encounter - Desiree Orlando LPN - 02/03/2024 4:01 PM EST Blood sugar were dropping low and was having episodes of weak and shakiness. He discussed it with office and it was agreed to try just one a day. He mentioned that he has no problem going back to two a day or switching medications all together. [facility]12-17-[facility] Telephone encounter Note* Telephone Encounter - Keren Arce MD - 02/03/2024 3:38 PM EST Why did he decrease the dose of metformin? If because of side effects (like diarrhea), we can try adding another med to control sugars to avoid adverse effects. If no adverse effects, then increase back to BID. If sugars not improving with 1 twice daily, can increase to 3 per day then 4 per day as n eeded. (2-1 or 1-2, then 2-2 for dosing twice daily). [facility]12-[facility] Telephone encounter Note* Telephone Encounter - Leena Wright RN - 02/03/2024 8:30 AM EST Pt called and is notified of providers results and instructions. Pt voices understanding. Pt stateshe was told his A1C has to be under [address] Nakul Maddox is doing the surgery. They have it rescheduled for April 08. Pt reports his fasting BS has been running around 180 when it used to run around 150. Pt states provider decreased his Metformin ER 500 mg from take 1 tablet BID with meals to take 1 tablet daily with breakfast. He didn't know if provider would want to increase medication back up. Please call and advise. Leena Wright RN [facility]12-16-2024 Telephone encounter Note* Telephone Encounter - Keren Arce MD - 02/02/2024 7:55 PM EST Verify if he is checking sugars routinely to make sure keeps fasting sugars under 150 and nonfasting sugars (at least 90 minutes after a meal) under 180. If having trouble keeping sugars down, can work with pharmD to make sure gets HgA1C to goal--verifywhat his orthopedist wants his HgA1C to be under. In the meanwhile, diet should be mostly protein and veggies, limit processed carbs and starchy foods, plus stay as active as able and drink enough water to control sugars better. Follow up with me if needed--noted HgA1C jumped up from 6 range to 8 range. Hemoglobin A1C (%) Date Value 01/30/2024 8.2 10/07/2023 6.8 04/07/2023 6.7 09/26/2022 6.5 03/26/2022 7.2 10/11/2020 7.5 02/11/2018 6.2 09/04/2017 6.2 05/09/2017 6.9 01/07/2017 6.0 Hemoglobin A1C (POCT) (%) Date Value 06/26/2020 7.0 02/24/2019 7.1 11/19/2018 7.4 [facility]12-16-[facility] Telephone encounter Note* Telephone Encounter - Leigh Casillas RN - 02/02/2024 10:41 AM EST Patient reports he was scheduled for hip replacement with [facility] on 02-18-23, but his A1C is too high at8.2, and surgeon moved surgery to 04-08-24, and advised patient to report the A1c to pcp. Asking pcp to advise. States he has been eating holiday foods, but can cut back and re-check labs. [facility] Telephone encounter Note* Telephone Encounter - Katie Carolina RN - 02/02/2024 9:35 AM EST Pt A1C resulted high. Patient informed via phone all. Explained that it increases risk for complications post op and it is a significant change that the last 3 A1Cs he has had drawn. Suggested reschedule surgery and see PCP. Patient verbalized understanding. Surgery will be rescheduled to 04/08/24 pending results of A1C preop. [facility] Work Phone: [phone]) 490-520912-16-2024 Miscellaneous Notes* Telephone Encounter - Katie Carolina RN - 02/02/2024 9:35 AM EST Pt A1C resulted high. Patient informed via phone all. Explained that it increases risk for complications post op and it is a significant change that the last 3 A1Cs he has had drawn. Suggested reschedule surgery and see PCP. Patient verbalized understanding. Surgery will be rescheduled to 04/08/24 pending results of A1C preop. [facility]12[facility] Instructions* Patient Instructions* Siomara Luong APRN.LEISURE TRAVEL AGENT - 01/30/2024 10:43 AM EST Images from the original note were not included. [facility] PATIENT PREOPERATIVE INSTRUCTIONS Nakul Maddox* has scheduled you for your procedure at this surgery center: [facility]: [phone] -- [address] [address]. Please read below carefully for your personalized instructions. Dietary Restrictions: - No solid food after midnight. - You may have 12 ounces of clear liquids (water, clear juices such as apple juice or gatorade, carbonated beverages, clear tea, black coffee, jello) until 2 hours before scheduled arrival at facility. No red/purple coloring and no creamer/sugar Medications: Unless instructed differently below, stay on all of your medications until your surgery. If you start any new medications after today's visit, please contact your surgeon. Pre-Surgery Med Instructions Medication Instructions cyanocobalamin, vitamin B-12, (VITAMIN B-12 ORAL) Stop 7 days before surgery FOLIC ACID ORAL Stop 7 days before surgery fluticasone propionate (FLONASE NASAL) IF needed meloxicam (MOBIC) 15 mg tablet Stop 7 days before surgery ketoconazole (NIZORAL) 2 % cream Do not take the day of surgery metFORMIN ER (GLUCOPHAGE XR) 500 mg 24 hr tablet Do not take the day of surgery metoprolol succinate ER (TOPROL XL) 25 mg 24 hr tablet Take the day of surgery with a small sip of water omeprazole (PRILOSEC) 20 mg capsule Take the day of surgery with a small sip of water traZODone (DESYREL) 50 mg tablet Do not take the day of surgery nystatin (MYCOSTATIN) powder Do not take the day of surgery ENTRESTO 49-51 mg tablet Take the day of surgery with a small sip of water famotidine (PEPCID) 20 mg tablet Take the day of surgery with a small sip of water Magnesium 250 mg tab Stop 7 days before surgery Cholecalciferol, Vitamin D3, 50 mcg (2,000 unit) cap Stop 7 days before surgery atorvastatin (LIPITOR) 40 mg tablet Take the day of surgery with a small sip of water aspirin 81 mg chewable tablet Stop 7 days before surgery COMPOUNDED PRESCRIPTION Lancets lancets blood sugar diagnostic (BLOOD GLUCOSE TEST) test strip Blood-Glucose Meter monitoring kit DOCUSATE CALCIUM (STOOL SOFTENER ORAL) IF needed If you take any medications for erectile dysfunction-Cialis (Tadalafil), Levitra, Staxyn (Vardenafil) Viagra (Sildenenafil please do not take these for 48 hours before surgery. If you start any new medications after today's visit, please contact the surgeon's office. If you are currently using a [id number] injectable or oral medication for diabetes or weight loss such as Dulaglutide (Trulicity), Exenatide (Byetta, Bydureon), Liraglutide (Victoza, Saxenda), Semaglutide (Ozempic, Wegovy, Rybelsus), or Tirzepatide (Mounjaro), the medicine should be stopped at least 7 days before surgery. These medicines can cause food to remain in your stomach for a very longtime and increase the risks from surgery and anesthesia. Not stopping the medication for a long enough time may result in your surgery being rescheduled. Blood Thinning Medications: - Stop NSAIDS (Ibuprofen, Advil, Aleve, Motrin, Celebrex, Mobic, etc.) 7 days before surgery, as directed by your surgeon. - Stop Aspirin 7 days before surgery, as directed by your surgeon. - Stop ALL herbal and dietary supplements 7 days before surgery. - You may take Tylenol (Acetaminophen) or any of your pain medications that do not contain aspirin or NSAIDS as needed. Important Reminders: - Candy, mints, and tobacco products are NOT permitted the morning of surgery. - Hearing aids, dentures and glasses may be worn the morning of surgery. - NO jewelry, body piercings, makeup, hairpins or contacts are to be worn the day of surgery. If you develop symptoms such as a fever, cold, or flu, or have other changes to your health within TWO DAYS of scheduled surgery or the morning of surgery, please contact the surgery center above. Personal Belongings: -Please have photo ID and insurance cards. -If you do not have a copy of advance directives on file with us, please bring a copy with you on the day of surgery. - Leave ALL valuables and money at home or with family members. For Outpatient Procedures: - YOU MUST HAVE A RESPONSIBLE TECHNICAL LABORATORY ASST TAKE YOU HOME. A CIGARETTE INSPECTOR OR TRANSFORMER ASSEMBLY SUPERVISOR CANNOT BE MADE A RESPONSIBLE TECHNICAL LABORATORY ASST. - We recommend that a responsible person stays with you overnight to take care of you. - You cannot stay in a hotel alone after outpatient surgery. You will not be permitted to have yoursurgery, if you do not have someone to take care of you. Arrival Time for Surgery: - The Surgery Center or hospital where you are having surgery will call the afternoon before surgery (or Friday for Friday surgery) with a scheduled arrival time. - If you have not heard by 4 pm, please contact the surgery center above. Please be aware that emergency situations arise, which may delay or change your surgical time. If this happens, we will notify you as soon as possible and regret any inconvenience. If you already have an Advance Directive, please fax a copy to [phone] or email to for it to be added to your chart. If you do not have an Advance Directive, you can find the appropriate form and more information at [email or web address]. We recommend that youcomplete the Advance Directive form found on the website and bring it with you the day of your surgery. It can be witnessed and scanned into your chart that day. Siomara Luong APRN.JOHN [facility] History and physical note * Siomara Luong, MARCIN.LEISURE TRAVEL AGENT - 01/30/2024 10:42 AM EST Images from the original note were not included. [place] [facility] HISTORY AND PHYSICAL EXAMINATION SERVICE DATE: 01/30/2024 SERVICE TIME: 1:41 PM PRIMARY CARE PHYSICIAN: Keren Arec MD Assessment Patient has the following medical conditions which may affect michelle-operative course: Hypertension Assessment: controlled on rx Last 14 BP Last 14 Encounter BP Readings: Date: BP: 01/30/2024 118/74 01/27/2024 105/78 12/24/2023 111/69 10/15/2023 106/68 03/30/2023 135/85 10/02/2022 110/72 07/26/2022 130/76 06/04/2022 91/73 05/09/2022 130/88 04/01/2022 110/72 11/20/2021 100/54 08/10/2021 118/72 01/01/2021 148/74 08/23/2020 122/78 PURE HYPERCHOLESTEROLEM Assessment: c/w statin Cardiomyopathy (HCC) Assessment: controlled on rx, improved EF 45-% to 55% (echo 2021 per warehouse attendant note) after Entresto. Following [facility], last OV scanned [facility] Coronary artery 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 angina pectoris Assessment: mild to moderate 2021 heart cath, c/w daily ASA, statin and BB. Denies CP, palpitations, sob, new or worsening cardiac symptoms RAJI (obstructive sleep apnea) AHI 39 Assessment: non-compliant with CPAP ESOPHAGITIS REFLUX Assessment: controlled on rx Prostate cancer (HCC) Assessment: s/p prostatectomy, denies radiation Diabetes mellitus type 2, controlled, without complications (HCC) Assessment: controlled with oral agent Hemoglobin A1C (%) Date Value 01/30/2024 8.2 10/11/2020 7.5 Pulmonary nodule/lesion, solitary Assessment: surveillance, last CT chest 2021 showing calcified granuloma Diaphragmatic hernia Assessment: no hx surgical interventions Rizzo Activity Status Index: METS: Climb a flight of stairs or walk up a hill (5.50 METs) DASI Score: 5.5 Patient denies any chest pain or undue shortness of breath with the above physical activity. Clinical Frailty Scale: 3. Well, with treated comorbid disease STOP-Bang Score: Has or is being treated for high blood pressure Patient over 50 years old Has a large neck Male patient Denies snoring loudly Denies feeling tired, fatigued, or sleepy during the daytime Has not been observed to stop breathing or choking/gasping during sleep BMI less than or equal to 35 kg/m^2 STOP-Bang Score: 4 [id number] Score: Age: 65-74 Sex: male CHF history: No Hypertension history: Yes Stroke/TIA/thromboembolism history: No Vascular disease history: No Diabetes history: Yes [id number] Score: 3 ARISCAT Score: Age: 51-80 Preoperative SpO2: >=96% Respiratory infection in the last month: No Preoperative anemia: No Surgical incision: peripheral Duration of surgery: 2-3 hrs Emergency procedure: No ARISCAT Score: 19 ANESTHESIA FINDINGS: Intubation History: No history of difficult intubation Significant Anesthesia Considerations: none Airway History: No history of difficult airway I - PHYSICAL EVALUATION AIRWAY Patient intubated: No. Tracheostomy tube not present Mallampati: III. TM distance: >3 FB. Neck ROM: full ROM without neurological symptoms. Mouth opening: adequate. Short neck: no. Thick neck: yes Vigil present: yes Lip Bite Test: I Microretrognathia/Micronagthia/Recessed Chin: No DENTAL Dental findings: teeth intact. Additional comments: +crowns/back. II - ANESTHESIA PLAN Anesthetic Plan: other Beta Gino Monitoring Plan Post Procedure Analgesic Plan Prepared for Surgery: NOT optimally prepared for surgery. Labs and EKG-reviewed, okay to proceed-JL, surgery cancelled 2/2 elevated A1c rescheduled 04/08/2024 CONSULTS: Patient does not require consults for optimization at this time Planned Anesthetic: other anesthesia choice The Following Tests/Procedures Have Been Initiated: Orders Placed This Encounter cyanocobalamin, vitamin B-12, (VITAMIN B-12 ORAL) Sig: Take by mouth. FOLIC ACID ORAL Sig: Take by mouth. fluticasone propionate (FLONASE NASAL) Sig: Use in the nose. mupirocin (BACTROBAN) 2 % ointment Sig: Apply 0.5 inch with cotton swab (Q-tip) to each nostril in the morning and evening for 5 days prior to and including day of surgery. Dispense: 22 g Refill: 0 REASON FOR VISIT: Destiney Ocampo is a 74 year old male who is scheduled for Procedure(s): ARTHROPLASTY ACETABULAR AND PROX FEM PROSTH TOTAL HIP ANTERIOR APPROACH (Right) at the request of Dr. Nakul Maddox for consultation. My final recommendation will be communicated back to the requesting physician by way of shared medical record or letter. Subjective The patient has the following: COVID-19 Immunization Status Overdue - Covid-19 Vaccine ( season) Overdue since 10/19/2023 01/07/2023 Imm Admin: COVID-19 vaccine, age 12+ yr, 2022- season (PFIZER-BIONTECH) 11/10/2021 Imm Admin: COVID-19 vaccine, age 12+ yr, bivalent (PFIZER-BIONTECH) 06/17/2021 Imm Admin: COVID-19 original vaccine, age 12+ yr, monovalent (fromAtoB- BIONTECH - [place] TOP) Only the first 3 history entries have been loaded, but more history exists. CHIEF COMPLAINT: Pre-op exam HPI: Destiney Ocampo is a 74 year old seen for PAC due to scheduled above surgery because of OA right hip. 12/10/2023, Breonna Polk PA-C Destiney Ocampo is a 73 year old patient . 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 The problem began limiting activities 3+ years ago. Destiney reports a current pain level of 9 (Hip-Right). FALL RISK: Destiney is not currently at risk for falls. PROMIS Physical Function Score No data to display FUNCTIONAL STATUS: Walk indoors, such as around the house (1.75 METs) Do light work around the house, such as dusting or washing dishes (2.70 METs) Take care of self, that is eating, dressing, bathing, using the toilet (2.75 METs) Walk a block or two on level ground (2.75 METs) Do moderate work around the house such as vacuuming, sweeping floors, or carrying in groceries (3.50 METs) Do yardwork, such as raking leaves, weeding,or pushing a power mower (4.50 METs) Climb a flight of stairs or walk up a hill (5.50 METs) Participate in moderate recreational activities, such as golf, bowling, dancing, doubles tennis, orthrowing a baseball or football (6.00 METs) PREVIOUS TREATMENTS: Current Anti-Inflammatory medications: meloxicam Past anti-inflammatory medications (not necessarily for this reason for visit): meloxicam, naproxen, prednisone Attempted Weight Loss Medical: RX NSAIDS for 3 Months or Greater (meloxicam (Mobic) and ibuprofen (Motrin)), Steroid Injections Right Hip REVIEW OF SYSTEMS: General: No weight loss, malaise or fevers. 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 No neurological symptoms or problems. Respiratory: +former smoker Positive for: obstructive sleep apnea and CPAP/BiPAP noncompliant. Negative for: asthma, COPD, current cough, dyspnea, pneumonia within 6 weeks, tobacco use and URI < 2 weeks. Cardiovascular: Positive for: anticoagulation therapy, CAD, hyperlipidemia and hypertension [place], The following tests and/or procedures were not performed: cardiac stents. Negative for: abdominal aortic aneurysm, AICD/PPM, angina, arrhythmia, atrial fibrillation, chest pain, CHF, congenital heart defect, DVT/PE, recent ID, murmur/valvular heart disease, open heart surgery and valve surgery. GI: Positive for: GERD (rx as needed) Negative for: abdominal pain, dysphagia, diverticulitis, hepatitis, irritable bowel syndrome, inflammatory bowel disease, liver disease, nausea, pancreatitis, vomiting and ETOH >2 drinks/day. : No history of dysuria, frequency or incontinence, stones or chronic kidney disease. No difficulty urinating, nocturia > 1 time per night or hematuria. Endocrine: Positive for: diabetes mellitus. Patient's diabetes mellitus is controlled by oral agents. Negative for: hypothyroidism. Hematology: Positive for: chronic anti-coagulation/platelet meds. Patient is on anti- coagulation/platelet medication(s): Aspirin. Negative for: anemia, bruises/bleeds easily, thrombocytopenia and transfusion of at least 4 units within 72 hours prior to surgery. Oncology: +prostate CA s/p prostatectomy Psych: Positive for: depression. Musculoskeletal: See HPI. Positive for: back pain. Skin: Negative for lesions, rash and itching. Implanted Devices: No implanted devices. PAST MEDICAL HISTORY Diagnosis Date Abdominal pain, other specified site Benign neoplasm of colon Chronic fatigue 05/22/2023 Fatigue and malaise noted Diaphragmatic hernia without mention of obstruction or gangrene Diplopia 2018 Started before 2018; had workup in 2018 due to more frequent episodes of diplopia Diverticulosis of colon (without mention of hemorrhage) Diverticulosis Dysthymic disorder Depression (non-psychotic) Headaches 05/22/2023 Chronic for years RAJI (obstructive sleep apnea) Pure hypercholesterolemia PAST SURGICAL HISTORY Procedure Laterality Date COLONOSCOPY FLX DX W/COLLJ SPEC WHEN PFRMD Colonoscopy COLONOSCOPY FLX DX W/COLLJ SPEC WHEN PFRMD 01/18/2011 Colonoscopy COLSC FLX W/RMVL OF TUMOR POLYP LESION SNARE TQ 04/24/07 Diverticulosis and prox. sigmoid polyp EGD TRANSORAL BIOPSY SINGLE/MULTIPLE 04/24/07 HH, esophagitis,gastritis ESOPHAGOGASTRODUODENOSCOPY TRANSORAL DIAGNOSTIC 10/30/2012 EGD HEART CATHETERIZATION 2013 LITHOTRIPSY XTRCORP SHOCK WAVE Lithotripsy FAMILY HISTORY Problem Relation Age of Onset Psychiatry Father suicide age 44 Diabetes Mother COPD Mother Social History Tobacco Use Smoking status: Former Current packs/day: 0.00 Average packs/day: 1 pack/day for 30.0 years (30.0 ttl pk-yrs) Types: Cigarettes Start date: 12/18/1974 Quit date: 12/18/2004 Years since quittin.1 Smokeless tobacco: Former Tobacco comments: less than 1/2 pack daily Vaping Use Vaping status: Never Used Substance Use Topics Alcohol use: Yes Comment: rarely beer- socially Drug use: No Prior to Admission medications as of 02/02/24 1331 Medication Sig Last Dose Taking cyanocobalamin, vitamin B-12, (VITAMIN B-12 ORAL) Take by mouth. Taking Yes FOLIC ACID ORAL Take by mouth. Taking Yes fluticasone propionate (FLONASE NASAL) Use in the nose. Taking Yes meloxicam (MOBIC) 15 mg tablet Take 1 tablet by mouth once daily. Taking Yes ketoconazole (NIZORAL) 2 % cream Apply 1 application to affected area two times a day. Continue for1 week after rash resolves. Taking Yes metFORMIN ER (GLUCOPHAGE XR) 500 mg 24 hr tablet Take 1 tablet by mouth daily with breakfast. Taking Yes metoprolol succinate ER (TOPROL XL) 25 mg 24 hr tablet Take 1 tablet by mouth once daily. Taking Yes omeprazole (PRILOSEC) 20 mg capsule Take 1 capsule by mouth two times a day. Taking Yes traZODone (DESYREL) 50 mg tablet Take 0.5-1 tablets by mouth at bedtime as needed (sedation). Taking Yes nystatin (MYCOSTATIN) powder Apply 1 application to affected area four times daily. Continue to usefor a week after rash resolves. Use as needed for recurrences Taking Yes ENTRESTO 49-51 mg tablet Take 1 tablet by mouth two times a day. (getting from patient assistance) Taking Yes famotidine (PEPCID) 20 mg tablet Take 1 tablet by mouth at bedtime as needed. Taking Yes Magnesium 250 mg tab Take 1 tablet by mouth two times a day. Taking Yes Cholecalciferol, Vitamin D3, 50 mcg (2,000 unit) cap Take 1 capsule by mouth once daily. Taking Yes atorvastatin (LIPITOR) 40 mg tablet TAKE 1 TABLET BY MOUTH EVERY DAY FOR 90 DAYS Taking Yes aspirin 81 mg chewable tablet Take 81 mg by mouth. Taking Yes COMPOUNDED PRESCRIPTION Generic Glucometer - I each 50 strips and lancets. Re: Diabetes mellitus controlled with hypoglycemia. Taking Yes Lancets lancets Test blood sugar(s) 1-2 times daily or as directed. Dx: Type 2 DM - Controlled E11.9 Insulin: No Taking Yes blood sugar diagnostic (BLOOD GLUCOSE TEST) test strip Test blood sugar(s) 1-2 times daily or as directed. Dx: Type 2 DM - Controlled E11.9 Insulin: No Taking Yes Blood-Glucose Meter monitoring kit Glucose Meter of Choice (per insurance coverage)- Kit - Dx: Type2 DM - Controlled E11.9, Test 1-2 times a day or as directed. No insulin Taking Yes DOCUSATE CALCIUM (STOOL SOFTENER ORAL) Take by mouth as needed. Taking Yes mupirocin (BACTROBAN) 2 % ointment Apply 0.5 inch with cotton swab (Q-tip) to each nostril in the morning and evening for 5 days prior to and including day of surgery. No medication comments found. ALLERGIES Allergen Reactions Lisinopril Cough Objective PHYSICAL EXAM: General: alert and oriented (x3), healthy appearance and obese. Pertinent negatives noted - not distressed. Skin: normal color, no rash or lesions. HEENT: EOM intact and pupils equal round. Pertinent negatives noted - no carotid bruit. Cardiovascular: regular rate and rhythm, normal S1 and S2, no rub, murmurs, or gallop. Respiratory: normal breath sounds, no wheezes or crackles. No chest wall deformity or tenderness. Abdomen: soft. Pertinent negatives noted - not tender. Extremities: no deformity, no edema or tenderness, no joint swelling or clubbing. Neurological: normal cognition and motor skills. Gait normal. No weakness or sensory deficit. PAIN ASSESSMENT: Pain Pain Level: 4 Pain Location: Hip-Right Description: Sharp, Stabbing Duration Amount of Time: 8 Duration Units: Years Frequency: Continuous Intervention/Comfort measure: Medication VITALS: BP 118/74 Pulse 75 Temp (Src) 97.1 (Temporal) Resp 14 Ht 5' 7 (1.70m) Wt 219 lb (99.3kg) SpO2 97% BMI 34.29 kg/(m^2). Diagnostic tests reviewed for today's visit: Lab Value Units Date High Low HB 15.0 g/dL 01/30/2024 17.0 13.0 HCT 46.3 % 01/30/2024 51.0 39.0 WBC 7.90 k/uL 01/30/2024 11.00 3.70 PLT 146 k/uL 01/30/2024 400 150 NA 139 mmol/L 01/30/2024 144 136 K 4.7 mmol/L 01/30/2024 5.1 3.7 GLUC 135 mg/dL 01/30/2024 99 74 BUN 13 mg/dL 01/30/2024 24 9 CREAT 0.77 mg/dL 01/30/2024 1.22 0.73 PTSEC No results within date range. INR No results within date range. APTT No results within date range. ALT 16 U/L 01/30/2024 54 10 AST 19 U/L 01/30/2024 40 14 TBILI 1.3 mg/dL 01/30/2024 1.3 0.2 TSH 2.390 mIU/L 12/24/2023 4.200 0.270 Lab Value Units Date High Low HCGQT No results within date range. UHCG No results within date range. HCG, BODY* No results within date range. Lab Value Units Date High Low ABORHD No results within date range. ABSCREEN No results within date range. Hemoglobin A1C (%) Date Value 01/30/2024 8.2 10/07/2023 6.8 04/07/2023 6.7 09/26/2022 6.5 03/26/2022 7.2 10/11/2020 7.5 02/11/2018 6.2 09/04/2017 6.2 05/09/2017 6.9 01/07/2017 6.0 Hemoglobin A1C (POCT) (%) Date Value 06/26/2020 7.0 02/24/2019 7.1 11/19/2018 7.4 Recent Results (from the past 8760 hour(s)) ECG COMPLETE Collection Time: 01/30/24 11:56 AM Result Value Ventricular Rate 62 Atrial Rate 62 P-R Interval 148 QRS Duration 98 QT Interval 418 QTC Calculation (Bazett) 424 Calculated P Seymour 44 Calculated R Seymour -6 Calculated T Seymour 43 Impression NORMAL SINUS RHYTHM INCOMPLETE RIGHT BUNDLE BRANCH BLOCK BORDERLINE ECG Confirmed by MD RODRIGUEZ GREGORY () on 02/02/2024 10:07:28 AM No results found for this or any previous visit (from the past 38176 hour(s)). Instructions Given to Patient: Instructions located in the after visit summary. Patient given verbal and written preop instructions and voices comprehension and compliance. SIGNATURE: Siomara Luong APRN.CNP PATIENT NAME: Destiney Ocampo DATE: January 30, 2024 TIME: 10:42 AM PAGER/CONTACT #: [facility] History and physical note* Siomara Luong APRN.CNP - 01/30/2024 10:42 AM EST Images from the original note were not included. [place] [facility] Per[facility] Pre[facility]Anesthesia Consultation Clinic HISTORY AND PHYSICAL EXAMINATION SERVICE DATE: 01/30/2024 SERVICE TIME: 1:41 PM PRIMARY CARE PHYSICIAN: Keren Arce MD Assessment Patient has the following medical conditions which may affect michelle-operative course: Hypertension Assessment: controlled on rx Last 14 BP Last 14 Encounter BP Readings: Date: BP: 01/30/2024 118/74 01/27/2024 105/78 12/24/2023 111/69 10/15/2023 106/68 03/30/2023 135/85 10/02/2022 110/72 07/26/2022 130/76 06/04/2022 91/73 05/09/2022 130/88 04/01/2022 110/72 11/20/2021 100/54 08/10/2021 118/72 01/01/2021 148/74 08/23/2020 122/78 PURE HYPERCHOLESTEROLEM Assessment: c/w statin Cardiomyopathy (HCC) Assessment: controlled on rx, improved EF 45-% to 55% (echo 2021 per warehouse attendant note) after [place]. Following [facility], last OV scanned [facility] Coronary artery 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 angina pectoris Assessment: mild to moderate 2021 heart cath, c/w daily ASA, statin and BB. Denies CP, palpitations, sob, new or worsening cardiac symptoms RAJI (obstructive sleep apnea) AHI 39 Assessment: non-compliant with CPAP ESOPHAGITIS REFLUX Assessment: controlled on rx Prostate cancer (HCC) Assessment: s/p prostatectomy, denies radiation Diabetes mellitus type 2, controlled, without complications (HCC) Assessment: controlled with oral agent Hemoglobin A1C (%) Date Value 01/30/2024 8.2 10/11/2020 7.5 Pulmonary nodule/lesion, solitary Assessment: surveillance, last CT chest 2021 showing calcified granuloma Diaphragmatic hernia Assessment: no hx surgical interventions Rizzo Activity Status Index: METS: Climb a flight of stairs or walk up a hill (5.50 METs) DASI Score: 5.5 Patient denies any chest pain or undue shortness of breath with the above physical activity. Clinical Frailty Scale: 3. Well, with treated comorbid disease STOP-Bang Score: Has or is being treated for high blood pressure Patient over 50 years old Has a large neck Male patient Denies snoring loudly Denies feeling tired, fatigued, or sleepy during the daytime Has not been observed to stop breathing or choking/gasping during sleep BMI less than or equal to 35 kg/m^2 STOP-Bang Score: 4 [id number] Score: Age: 65-74 Sex: male CHF history: No Hypertension history: Yes Stroke/TIA/thromboembolism history: No Vascular disease history: No Diabetes history: Yes [id number] Score: 3 ARISCAT Score: Age: 51-80 Preoperative SpO2: >=96% Respiratory infection in the last month: No Preoperative anemia: No Surgical incision: peripheral Duration of surgery: 2-3 hrs Emergency procedure: No ARISCAT Score: 19 ANESTHESIA FINDINGS: Intubation History: No history of difficult intubation Significant Anesthesia Considerations: none Airway History: No history of difficult airway I - PHYSICAL EVALUATION AIRWAY Patient intubated: No. Tracheostomy tube not present Mallampati: III. TM distance: >3 FB. Neck ROM: full ROM without neurological symptoms. Mouth opening: adequate. Short neck: no. Thick neck: yes Vigil present: yes Lip Bite Test: I Microretrognathia/Micronagthia/Recessed Chin: No DENTAL Dental findings: teeth intact. Additional comments: +crowns/back. II - ANESTHESIA PLAN Anesthetic Plan: other Beta Gino Monitoring Plan Post Procedure Analgesic Plan Prepared for Surgery: NOT optimally prepared for surgery. Labs and EKG-reviewed, okay to proceed-JL, surgery cancelled 2/2 elevated A1c rescheduled 04/08/2024 CONSULTS: Patient does not require consults for optimization at this time Planned Anesthetic: other anesthesia choice The Following Tests/Procedures Have Been Initiated: Orders Placed This Encounter cyanocobalamin, vitamin B-12, (VITAMIN B-12 ORAL) Sig: Take by mouth. FOLIC ACID ORAL Sig: Take by mouth. fluticasone propionate (FLONASE NASAL) Sig: Use in the nose. mupirocin (BACTROBAN) 2 % ointment Sig: Apply 0.5 inch with cotton swab (Q-tip) to each nostril in the morning and evening for 5 days prior to and including day of surgery. Dispense: 22 g Refill: 0 REASON FOR VISIT: Destiney Ocampo is a 74 year old male who is scheduled for Procedure(s): ARTHROPLASTY ACETABULAR AND PROX FEM PROSTH TOTAL HIP ANTERIOR APPROACH (Right) at the request of Dr. Nakul Maddox for consultation. My final recommendation will be communicated back to the requesting physician by way of shared medical record or letter. Subjective The patient has the following: COVID-19 Immunization Status Overdue - Covid-19 Vaccine (2023- season) Overdue since 10/19/2023 01/07/2023 Imm Admin: COVID-19 vaccine, age 12+ yr, 2022- season (PFIZER-BIONTECH) 11/10/2021 Imm Admin: COVID-19 vaccine, age 12+ yr, bivalent (PFIZER-BIONTECH) 06/17/2021 Imm Admin: COVID-19 original vaccine, age 12+ yr, monovalent (PFIZER- BIONTECH - [place] TOP) Only the first 3 history entries have been loaded, but more history exists. CHIEF COMPLAINT: Pre-op exam HPI: Destiney Ocampo is a 74 year old seen for PAC due to scheduled above surgery because of OA right hip. 12/10/2023, Breonna Polk PA-C Destiney Ocampo is a 73 year old patient . 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 The problem began limiting activities 3+ years ago. Destiney reports a current pain level of 9 (Hip-Right). FALL RISK: Destiney is not currently at risk for falls. PROMIS Physical Function Score No data to display FUNCTIONAL STATUS: Walk indoors, such as around the house (1.75 METs) Do light work around the house, such as dusting or washing dishes (2.70 METs) Take care of self, that is eating, dressing, bathing, using the toilet (2.75 METs) Walk a block or two on level ground (2.75 METs) Do moderate work around the house such as vacuuming, sweeping floors, or carrying in groceries (3.50 METs) Do yardwork, such as raking leaves, weeding,or pushing a power mower (4.50 METs) Climb a flight of stairs or walk up a hill (5.50 METs) Participate in moderate recreational activities, such as golf, bowling, dancing, doubles tennis, orthrowing a baseball or football (6.00 METs) PREVIOUS TREATMENTS: Current Anti-Inflammatory medications: meloxicam Past anti-inflammatory medications (not necessarily for this reason for visit): meloxicam, naproxen, prednisone Attempted Weight Loss Medical: RX NSAIDS for 3 Months or Greater (meloxicam (Mobic) and ibuprofen (Motrin)), Steroid Injections Right Hip REVIEW OF SYSTEMS: General: No weight loss, malaise or fevers. 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 No neurological symptoms or problems. Respiratory: +former smoker Positive for: obstructive sleep apnea and CPAP/BiPAP noncompliant. Negative for: asthma, COPD, current cough, dyspnea, pneumonia within 6 weeks, tobacco use and URI < 2 weeks. Cardiovascular: Positive for: anticoagulation therapy, CAD, hyperlipidemia and hypertension Patient's last office visit with warehouse attendant, [place], The following tests and/or procedures were not performed: cardiac stents. Negative for: abdominal aortic aneurysm, AICD/PPM, angina, arrhythmia, atrial fibrillation, chest pain, CHF, congenital heart defect, DVT/PE, recent ID, murmur/valvular heart disease, open heart surgery and valve surgery. GI: Positive for: GERD (rx as needed) Negative for: abdominal pain, dysphagia, diverticulitis, hepatitis, irritable bowel syndrome, inflammatory bowel disease, liver disease, nausea, pancreatitis, vomiting and ETOH >2 drinks/day. : No history of dysuria, frequency or incontinence, stones or chronic kidney disease. No difficulty urinating, nocturia > 1 time per night or hematuria. Endocrine: Positive for: diabetes mellitus. Patient's diabetes mellitus is controlled by oral agents. Negative for: hypothyroidism. Hematology: Positive for: chronic anti-coagulation/platelet meds. Patient is on anti- coagulation/platelet medication(s): Aspirin. Negative for: anemia, bruises/bleeds easily, thrombocytopenia and transfusion of at least 4 units within 72 hours prior to surgery. Oncology: +prostate CA s/p prostatectomy Psych: Positive for: depression. Musculoskeletal: See HPI. Positive for: back pain. Skin: Negative for lesions, rash and itching. Implanted Devices: No implanted devices. PAST MEDICAL HISTORY Diagnosis Date Abdominal pain, other specified site Benign neoplasm of colon Chronic fatigue 05/22/2023 Fatigue and malaise noted Diaphragmatic hernia without mention of obstruction or gangrene Diplopia 2018 Started before 2018; had workup in 2018 due to more frequent episodes of diplopia Diverticulosis of colon (without mention of hemorrhage) Diverticulosis Dysthymic disorder Depression (non-psychotic) Headaches 05/22/2023 Chronic for years RAJI (obstructive sleep apnea) Pure hypercholesterolemia PAST SURGICAL HISTORY Procedure Laterality Date COLONOSCOPY FLX DX W/COLLJ SPEC WHEN PFRMD Colonoscopy COLONOSCOPY FLX DX W/COLLJ SPEC WHEN PFRMD 01/18/2011 Colonoscopy COLSC FLX W/RMVL OF TUMOR POLYP LESION SNARE TQ 04/24/07 Diverticulosis and prox. sigmoid polyp EGD TRANSORAL BIOPSY SINGLE/MULTIPLE 04/24/07 HH, esophagitis,gastritis ESOPHAGOGASTRODUODENOSCOPY TRANSORAL DIAGNOSTIC 10/30/2012 EGD HEART CATHETERIZATION 2012 LITHOTRIPSY XTRCORP SHOCK WAVE Lithotripsy FAMILY HISTORY Problem Relation Age of Onset Psychiatry Father suicide age 44 Diabetes Mother COPD Mother Social History Tobacco Use Smoking status: Former Current packs/day: 0.00 Average packs/day: 1 pack/day for 30.0 years (30.0 ttl pk-yrs) Types: Cigarettes Start date: 12/18/1974 Quit date: 12/18/2004 Years since quittin.1 Smokeless tobacco: Former Tobacco comments: less than 1/2 pack daily Vaping Use Vaping status: Never Used Substance Use Topics Alcohol use: Yes Comment: rarely beer- socially Drug use: No Prior to Admission medications as of 02/02/24 1331 Medication Sig Last Dose Taking cyanocobalamin, vitamin B-12, (VITAMIN B-12 ORAL) Take by mouth. Taking Yes FOLIC ACID ORAL Take by mouth. Taking Yes fluticasone propionate (FLONASE NASAL) Use in the nose. Taking Yes meloxicam (MOBIC) 15 mg tablet Take 1 tablet by mouth once daily. Taking Yes ketoconazole (NIZORAL) 2 % cream Apply 1 application to affected area two times a day. Continue for1 week after rash resolves. Taking Yes metFORMIN ER (GLUCOPHAGE XR) 500 mg 24 hr tablet Take 1 tablet by mouth daily with breakfast. Taking Yes metoprolol succinate ER (TOPROL XL) 25 mg 24 hr tablet Take 1 tablet by mouth once daily. Taking Yes omeprazole (PRILOSEC) 20 mg capsule Take 1 capsule by mouth two times a day. Taking Yes traZODone (DESYREL) 50 mg tablet Take 0.5-1 tablets by mouth at bedtime as needed (sedation). Taking Yes nystatin (MYCOSTATIN) powder Apply 1 application to affected area four times daily. Continue to usefor a week after rash resolves. Use as needed for recurrences Taking Yes ENTRESTO 49-51 mg tablet Take 1 tablet by mouth two times a day. (getting from patient assistance) Taking Yes famotidine (PEPCID) 20 mg tablet Take 1 tablet by mouth at bedtime as needed. Taking Yes Magnesium 250 mg tab Take 1 tablet by mouth two times a day. Taking Yes Cholecalciferol, Vitamin D3, 50 mcg (2,000 unit) cap Take 1 capsule by mouth once daily. Taking Yes atorvastatin (LIPITOR) 40 mg tablet TAKE 1 TABLET BY MOUTH EVERY DAY FOR 90 DAYS Taking Yes aspirin 81 mg chewable tablet Take 81 mg by mouth. Taking Yes COMPOUNDED PRESCRIPTION Generic Glucometer - I each 50 strips and lancets. Re: Diabetes mellitus controlled with hypoglycemia. Taking Yes Lancets lancets Test blood sugar(s) 1-2 times daily or as directed. Dx: Type 2 DM - Controlled E11.9 Insulin: No Taking Yes blood sugar diagnostic (BLOOD GLUCOSE TEST) test strip Test blood sugar(s) 1-2 times daily or as directed. Dx: Type 2 DM - Controlled E11.9 Insulin: No Taking Yes Blood-Glucose Meter monitoring kit Glucose Meter of Choice (per insurance coverage)- Kit - Dx: Type2 DM - Controlled E11.9, Test 1-2 times a day or as directed. No insulin Taking Yes DOCUSATE CALCIUM (STOOL SOFTENER ORAL) Take by mouth as needed. Taking Yes mupirocin (BACTROBAN) 2 % ointment Apply 0.5 inch with cotton swab (Q-tip) to each nostril in the morning and evening for 5 days prior to and including day of surgery. No medication comments found. ALLERGIES Allergen Reactions Lisinopril Cough Objective PHYSICAL EXAM: General: alert and oriented (x3), healthy appearance and obese. Pertinent negatives noted - not distressed. Skin: normal color, no rash or lesions. HEENT: EOM intact and pupils equal round. Pertinent negatives noted - no carotid bruit. Cardiovascular: regular rate and rhythm, normal S1 and S2, no rub, murmurs, or gallop. Respiratory: normal breath sounds, no wheezes or crackles. No chest wall deformity or tenderness. Abdomen: soft. Pertinent negatives noted - not tender. Extremities: no deformity, no edema or tenderness, no joint swelling or clubbing. Neurological: normal cognition and motor skills. Gait normal. No weakness or sensory deficit. PAIN ASSESSMENT: Pain Pain Level: 4 Pain Location: Hip-Right Description: Sharp, Stabbing Duration Amount of Time: 8 Duration Units: Years Frequency: Continuous Intervention/Comfort measure: Medication VITALS: BP 118/74 Pulse 75 Temp (Src) 97.1 (Temporal) Resp 14 Ht 5' 7 (1.70m) Wt 219 lb (99.3kg) SpO2 97% BMI 34.29 kg/(m^2). Diagnostic tests reviewed for today's visit: Lab Value Units Date High Low HB 15.0 g/dL 01/30/2024 17.0 13.0 HCT 46.3 % 01/30/2024 51.0 39.0 WBC 7.90 k/uL 01/30/2024 11.00 3.70 PLT 146 k/uL 01/30/2024 400 150 NA 139 mmol/L 01/30/2024 144 136 K 4.7 mmol/L 01/30/2024 5.1 3.7 GLUC 135 mg/dL 01/30/2024 99 74 BUN 13 mg/dL 01/30/2024 24 9 CREAT 0.77 mg/dL 01/30/2024 1.22 0.73 PTSEC No results within date range. INR No results within date range. APTT No results within date range. ALT 16 U/L 01/30/2024 54 10 AST 19 U/L 01/30/2024 40 14 TBILI 1.3 mg/dL 01/30/2024 1.3 0.2 TSH 2.390 mIU/L 12/24/2023 4.200 0.270 Lab Value Units Date High Low HCGQT No results within date range. UHCG No results within date range. HCG, BODY* No results within date range. Lab Value Units Date High Low ABORHD No results within date range. ABSCREEN No results within date range. Hemoglobin A1C (%) Date Value 01/30/2024 8.2 10/07/2023 6.8 04/07/2023 6.7 09/26/2022 6.5 03/26/2022 7.2 10/11/2020 7.5 02/11/2018 6.2 09/04/2017 6.2 05/09/2017 6.9 01/07/2017 6.0 Hemoglobin A1C (POCT) (%) Date Value 06/26/2020 7.0 02/24/2019 7.1 11/19/2018 7.4 Recent Results (from the past 8760 hour(s)) ECG COMPLETE Collection Time: 01/30/24 11:56 AM Result Value Ventricular Rate 62 Atrial Rate 62 P-R Interval 148 QRS Duration 98 QT Interval 418 QTC Calculation (Bazett) 424 Calculated P [place] 44 Calculated R [place] -6 Calculated T [place] 43 Impression NORMAL SINUS RHYTHM INCOMPLETE RIGHT BUNDLE BRANCH BLOCK BORDERLINE ECG Confirmed by MD MICHAEL CHILO () on 02/02/2024 10:07:28 AM No results found for this or any previous visit (from the past 03498 hour(s)). Instructions Given to Patient: Instructions located in the after visit summary. Patient given verbal and written preop instructions and voices comprehension and compliance. SIGNATURE: Siomara Luong APRN.CNP PATIENT NAME: Destiney Ocamop DATE: January 30, 2024 TIME: 10:42 AM PAGER/CONTACT #: [facility]* Patient Instructions* Geovanna Hoffman PA-C - 01/27/2024 2:05 PM EST Redraw B12 level in March Increase physical activity and cognitive activity Follow up in 5 months [facility] NoteHNO ID: [id number] Author: GEOVANNA HOFFMAN PA-C Service: ? Author Type: Physician Steam Heating Installer Type: Progress Notes Filed: 01/27/2024 14:44 Note Text: ESTABLISHED PATIENT VISIT Last visit: 12/24/23 ASSESSMENT/PLAN: 1. Brain fog - ICD9: 799.59, ICD10: R41.89 (primary diagnosis) 2. Diplopia - ICD9: 368.2, ICD10: H53.2 3. Memory loss - ICD9: 780.93, ICD10: R41.3 4. Other fatigue - ICD9: 780.79, ICD10: R53.83 Patient presents for multiple neurologic concerns that been ongoing for at least 6+ years. Had an MRI done in 2018 for this which did not show any acute abnormality, had repeat CT done a few weeks ago that was again normal. Patient reports symptoms have been constant since they started, unsure if they started gradually or acutely. Notes he has had double vision daily, constantly, described as a slight overlay of objects, no [id number] imaging. Has seen an eye doctor multiple times with no etiology found. MRI of the brain in the past was negative, unclear etiology for this. No associated symptoms with it and notes that it is constant. Discussed it could be muscle atrophy of the eyes as well contributing but will repeat MRI due to this and other neurologic concerns. Patient also with significant fatigue, daily, notes that he tried CPAP for 5 to 6 years with no benefit. Notes that he sleeps well but does not seem to matter, he is fatigued all day long every day. Patient does report chronic history of depression, was on Effexor for many years and recently tried Wellbutrin but states he had side effects so he is not on any medications anymore. Notes he did not experience any benefit with the medications and did not notice any change when he came off the meds. However, will obtain basic blood work looking for common causes of fatigue. Finally, patient with brain fog that has been constant over the last 6+ years, notes it is very frustrating as he has been worked up with no answers found. [place] today was and discussed this does fit for mild cognitive impairment, discussed possible pseudodementia with likely depression and possibly untreated deep apnea playing a role. Patient did get frustrated with this. Discussed neuropsychological testing but patient does not want to have this completed as he feels it is not related to his other symptoms including fatigue and double vision. Will complete MRI of the brain with volumetric analysis to look for any signs of neurodegenerative disease. Patient to continue following primary care for depression management. Encouraged conservative therapy for memory including increasing physical and cognitive activity. Patient and agreeable to treatment plan of care at this time, questions were answered. Patient to follow-up after studies are completed. Geovanna Hoffman PA-C CHIEF COMPLAINT: follow up HISTORY OF PRESENT ILLNESS: Destiney Ocampo is a 74 year old male, There were no vitals taken for this visit. with a PMH significant for headaches, hyperlipidemia, hypertension, RAJI, DM type II, prostate cancer, diplopia. Last seen for brain fog, diplopia and fatigue. Ongoing for 6 years, frustrated in appt. MRI brain showing moderate volume loss and hippocampus in the 26th percentile, B12 was 310. Patient presents with his to follow-up appointment. Notes that he has been supplementing B12 for about a month but has not noticed a significant change. Still having regular episode of double vision. Notes that 1 thing that is new is if he covers 1 eye 1 object will look smaller and if he looks through the other eye. No change in fatigue or memory. No falls, no new symptoms or concerns. REVIEW OF SYSTEMS GENERAL:No weight loss, malaise or fevers. HEENT:Negative for frequent or significant headaches, No changes in hearing or vision, no nose bleeds or other nasal problems NECK:Negative for lumps, goiter, pain and significant neck swelling RESPIRATORY: Negative for cough, wheezing or shortness of breath. CARDIOVASCULAR: Negative for chest pain, leg swelling or palpitations. GASTROINTESTINAL: Negative for abdominal discomfort, blood in stools or black stools or change in bowel habits GENITOURINARY: No history of dysuria, frequency or incontinence MUSCULOSKELETAL: Negative for joint pain or swelling, back pain or muscle pain. NEUROLOGIC:Negative for focal numbness or weakness, headaches and dizziness or syncope, vision changes, speech/languag changes - EXCEPT that as per HPI above. SKIN:Negative for lesions, rash, and itching. PSYCHIATRIC: Negative for sleep disturbance, mood disorder and recent psychosocial stressors. HEMATOLOGIC/LYMPHATIC/IMMUNOLOGIC:Negative for prolonged bleeding, bruising easily or swollen nodes. ENDOCRINE: Negative for cold or heat intolerance, polyuria, polydipsia and goiter. The remainder of the ROS was reviewed and is negative. LAB/IMAGING: Those performed since patient's last visit have been reviewed. (more content not included)...[facility] History of Present illness Narrative* Geovanna Hoffman PA-C - 01/27/2024 1:28 PM EST ESTABLISHED PATIENT VISIT Last visit: 12/24/23 ASSESSMENT/PLAN: 1. Brain fog - ICD9: 799.59, ICD10: R41.89 (primary diagnosis) 2. Diplopia - ICD9: 368.2, ICD10: H53.2 3. Memory loss - ICD9: 780.93, ICD10: R41.3 4. Other fatigue - ICD9: 780.79, ICD10: R53.83 Patient presents for multiple neurologic concerns that been ongoing for at least 6+ years. Had an MRI done in 2018 for this which did not show any acute abnormality, had repeat CT done a few weeks ago that was again normal. Patient reports symptoms have been constant since they started, unsure if they started gradually or acutely. Notes he has had double vision daily, constantly, described as a slight overlay of objects, no [id number] imaging. Has seen an eye doctor multiple times with no etiology found. MRI of the brain in the past was negative, unclear etiology for this. No associated symptoms with it and notes that it is constant. Discussed it could be muscle atrophy of the eyes as well contributing but will repeat MRI due to this and other neurologic concerns. Patient also with significant fatigue, daily, notes that he tried CPAP for 5 to 6 years with no benefit. Notes that he sleeps well but does not seem to matter, he is fatigued all day long every day. Patient does report chronic history of depression, was on Effexor for many years and recently tried Wellbutrin but states he had side effects so he is not on any medications anymore. Notes he did not experience any benefit with the medications and did not notice any change when he came off the meds. However, will obtain basic blood work looking for common causes of fatigue. Finally, patient with brain fog that has been constant over the last 6+ years, notes it is very frustrating as he has been worked up with no answers found. [place] today was 24/30 and discussed this does fit for mild cognitive impairment, discussed possible pseudodementia with likely depression and possibly untreated deep apnea playing a role. Patient did get frustrated with this. Discussed neuropsychological testing but patient does not want tohave this completed as he feels it is not related to his other symptoms including fatigue and double vision. Will complete MRI of the brain with volumetric analysis to look for any signs of neurodegenerative disease. Patient to continue following primary care for depression management. Encouraged conservative therapy for memory including increasing physical and cognitive activity. Patient and agreeable to treatment plan of care at this time, questions were answered. Patientto follow-up after studies are completed. Geovanna Hoffman PA-C CHIEF COMPLAINT: follow up HISTORY OF PRESENT ILLNESS: Destiney Ocampo is a 74 year old male, There were no vitals taken for thisvisit. with a PMH significant for headaches, hyperlipidemia, hypertension, RAJI, DM type II, prostate cancer, diplopia. Last seen for brain fog, diplopia and fatigue. Ongoing for 6 years, frustrated in appt. MRI brain showing moderate volume loss and hippocampus in the 26th percentile, B12 was 310. Patient presents with his to follow-up appointment. Notes that he has been supplementing B12 for about a month but has not noticed a significant change. Still having regular episode of double vision. Notes that 1 thing that is new is if he covers 1 eye 1 object will look smaller and if he looks through the other eye. No change in fatigue or memory. No falls, no new symptoms or concerns. REVIEW OF SYSTEMS GENERAL:No weight loss, malaise or fevers. HEENT:Negative for frequent or significant headaches, No changes in hearing or vision, no nose bleeds or other nasal problems NECK:Negative for lumps, goiter, pain and significant neck swelling RESPIRATORY: Negative for cough, wheezing or shortness of breath. CARDIOVASCULAR: Negative for chest pain, leg swelling or palpitations. GASTROINTESTINAL: Negative for abdominal discomfort, blood in stools or black stools or change in bowel habits GENITOURINARY: No history of dysuria, frequency or incontinence MUSCULOSKELETAL: Negative for joint pain or swelling, back pain or muscle pain. NEUROLOGIC:Negative for focal numbness or weakness, headaches and dizziness or syncope, vision changes, speech/languag changes - EXCEPT that as per HPI above. SKIN:Negative for lesions, rash, and itching. PSYCHIATRIC: Negative for sleep disturbance, mood disorder and recent psychosocial stressors. HEMATOLOGIC/LYMPHATIC/IMMUNOLOGIC:Negative for prolonged bleeding, bruising easily or swollen nodes. ENDOCRINE: Negative for cold or heat intolerance, polyuria, polydipsia and goiter. The remainder of the ROS was reviewed and is negative. LAB/IMAGING: Those performed since patient's last visit have been reviewed. B12- 310 MRI brain 01/18/24 IMPRESSION: * No evidence of an acute intracranial process or intracranial mass. * Moderate generalized volume loss. * Hippocampal volumes at the 26th percentile when compared to age matched normal controls by quantitative analysis. * Minimal white matter disease which is nonspecific but likely reflective of chronic microvascular ischemia. * No evidence of parenchymal microhemorrhages by MRI. MEDICATIONS: meloxicam (MOBIC) 15 mg tablet Take 1 tablet by mouth once daily. ketoconazole (NIZORAL) 2 % cream Apply 1 application to affected area two times a day. Continue for1 week after rash resolves. metFORMIN ER (GLUCOPHAGE XR) 500 mg 24 hr tablet Take 1 tablet by mouth daily with breakfast. metoprolol succinate ER (TOPROL XL) 25 mg 24 hr tablet Take 1 tablet by mouth once daily. omeprazole (PRILOSEC) 20 mg capsule Take 1 capsule by mouth two times a day. traZODone (DESYREL) 50 mg tablet Take 0.5-1 tablets by mouth at bedtime as needed (sedation). nystatin (MYCOSTATIN) powder Apply 1 application to affected area four times daily. Continue to usefor a week after rash resolves. Use as needed for recurrences ENTRESTO 49-51 mg tablet Take 1 tablet by mouth two times a day. (getting from patient assistance) famotidine (PEPCID) 20 mg tablet Take 1 tablet by mouth at bedtime as needed. venlafaxine ER (EFFEXOR XR) 75 mg 24 hr capsule Take 1 capsule by mouth daily at bedtime. Magnesium 250 mg tab Take 1 tablet by mouth two times a day. Cholecalciferol, Vitamin D3, 50 mcg (2,000 unit) cap Take 1 capsule by mouth once daily. atorvastatin (LIPITOR) 40 mg tablet TAKE 1 TABLET BY MOUTH EVERY DAY FOR 90 DAYS COMPOUNDED PRESCRIPTION Generic Glucometer - I each 50 strips and lancets. Re: Diabetes mellitus controlled with hypoglycemia. Lancets lancets Test blood sugar(s) 1-2 times daily or as directed. Dx: Type 2 DM - Controlled E11.9 Insulin: No blood sugar diagnostic (BLOOD GLUCOSE TEST) test strip Test blood sugar(s) 1-2 times daily or as directed. Dx: Type 2 DM - Controlled E11.9 Insulin: No Blood-Glucose Meter monitoring kit Glucose Meter of Choice (per insurance coverage)- Kit - Dx: Type2 DM - Controlled E11.9, Test 1-2 times a day or as directed. No insulin DOCUSATE CALCIUM (STOOL SOFTENER ORAL) Take by mouth as needed. aspirin 81 mg chewable tablet Take 81 mg by mouth. HISTORIES PAST MEDICAL HISTORY Diagnosis Date Abdominal pain, other specified site Benign neoplasm of colon Chronic fatigue 05/22/2023 Fatigue and malaise noted Diaphragmatic hernia without mention of obstruction or gangrene Diplopia 2018 Started before 2017; had workup in 2018 due to more frequent episodes of diplopia Diverticulosis of colon (without mention of hemorrhage) Diverticulosis Dysthymic disorder Depression (non-psychotic) Headaches 05/22/2023 Chronic for years RAJI (obstructive sleep apnea) Pure hypercholesterolemia FAMILY HISTORY Problem Relation Age of Onset Psychiatry Father suicide age 44 Diabetes Mother COPD Mother SOCIAL HISTORY Social History Tobacco Use Smoking status: Former Current packs/day: 0.00 Average packs/day: 1 pack/day for 30.0 years (30.0 ttl pk-yrs) Types: Cigarettes Start date: 12/18/1974 Quit date: 12/18/2004 Years since quittin.1 Smokeless tobacco: Former Tobacco comments: less than 1/2 pack daily Substance Use Topics Alcohol use: Yes Comment: rarely beer- socially Drug use: No PHYSICAL EXAMINATION BP 105/78 (BP Site: Left Arm, BP Position: Sitting) Pulse 69 Wt 98.2 kg (216 lb 9.6 oz) SpO2 97% BMI 33.92 kg/m GENERAL EXAM: General appearance: NAD, pleasant. HEENT: NC/AT, nasal congestion absent, no oral lesions, membranes moist. NECK: No masses, supple. Lungs: Breathing comfortably Extr: Moves all extremities without difficulty Skin: Cool to touch. No rash. NEUROLOGICAL EXAM: General: Awake, alert, oriented x3 (person,place,time), speech fluent, no dysarthria; comprehension, naming, repetition intact. Deferred repeat MoCA today CN: PERRL, EOMI and without nystagmus, VFF to confrontation, facial sensation and strength are normal and symmetric, hearing is intact to finger rub bilaterally, palate and tongue movements are intact and symmetric. SCM and trapezius strength normal. Motor: Normal tone, bulk Coordination: FNF intact. No tremors. Sensation: No evidence of neglect. Gait: Narrow based and stable with normal stride and arm swing. Assessment and Plan: ASSESSMENT/PLAN: 1. Low vitamin B12 level - ICD9: 790.6, ICD10: R79.89 (primary diagnosis) 2. Diplopia - ICD9: 368.2, ICD10: H53.2 3. Memory loss - ICD9: 780.93, ICD10: R41.3 Patient with persistent fatigue, short-term memory issues, brain fog and double vision ongoing for years, progressively worsening. MRI of the brain did show moderate atrophy as well as hippocampal volume the 26 percentile. Previous MoCA was 24/30 at last appointment. Was found to have a B12 of 310 and has been supplementing this for the last month without any significant benefit. Concern for possible neurodegenerative process contributing to cognitive symptoms but patient deferring any further testing at this time. Will continue to monitor, will recheck B12 in few months to ensure the patientis absorbing this as well. For double vision, no intracranial etiology for this, no stroke found, bleed, or other intracranial process. Discussed it could be atrophy of the ocular muscles causing double vision and encouraged follow-up with his eye doctor. Also encourage patient to follow-up for fatigue with primary care. Encouraged conservative therapy for memory including increasing physical andcognitive activity. Patient and agreeable to treatment plan of care at this time, questions were answered. Patientto follow-up in 5 to 6 months. Geovanna Hoffman PA-C I spent a total of 30 minutes on the date of the service which included preparing to see the patient, [id number] patient care, completing clinical documentation, obtaining and/or reviewing separately obtained history, performing a medically appropriate examination, counseling and educating the pat ient/family/caregiver, and ordering medications, tests, or procedures. This document has been created with the use of voice recognition technology. It may contain inaccuracies: (e.g. misspellings, inaccurate syntax or word sense) that have escaped review. [facility] History of Present illness Narrative* Leona Leonardo RT(R) - 01/18/2024 3:00 PM EST Radiology Service Progress Note PATIENT NAME: Destiney Ocampo DATE OF SERVICE: January 18, 2024 TIME: 2:17 PM PATIENT IDENTITY VERIFICATION COMPLETED USING TWO (2) IDENTIFIERS: Name and Date of confirmedby patient verbally and Name and Date of confirmed by identification band. FALL SCREENING: Has the patient had 2 falls in the last year or 1 fall with injury or currently using an Ambulatory Assistive Device (Walker, Cane, Wheelchair, Crutches, etc.)? No PATIENT GENDER DATA: Male PATIENT RELEVANT IMPLANT DATA REVIEWED: Yes PATIENT PRESENTS WITH AN IMPLANTABLE OR ATTACHED CORPORATE QUALITY MANAGER: No RADIOLOGY DEPARTMENT: MR; Exam(s) Completed: Head: Routine Brain dementia PERIPHERAL IV DATA: Not applicable SIGNED BY: KEYONA Delacruz) January 18, 2024 2:17 PM [facility] NoteHNO ID: [id number] Author: LEONA LEONARDO RT (R) Service: Radiology Author Type: Technologist Type: Progress Notes Filed: 01/18/2024 14:18 Note Text: Radiology Service Progress Note PATIENT NAME: Destiney Ocampo DATE OF SERVICE: January 18, 2024 TIME: 2:17 PM PATIENT IDENTITY VERIFICATION COMPLETED USING TWO (2) IDENTIFIERS: Name and Date of confirmed by patient verbally and Name and Date of confirmed by identification band. FALL SCREENING: Has the patient had 2 falls in the last year or 1 fall with injury or currently using an Ambulatory Assistive Device (Walker, Cane, Wheelchair, Crutches, etc.)? No PATIENT GENDER DATA: Male PATIENT RELEVANT IMPLANT DATA REVIEWED: Yes PATIENT PRESENTS WITH AN IMPLANTABLE OR ATTACHED CORPORATE QUALITY MANAGER: No RADIOLOGY DEPARTMENT: MR; Exam(s) Completed: Head: Routine Brain dementia PERIPHERAL IV DATA: Not applicable SIGNED BY: KEYONA Delacruz) January 18, 2024 2:17 [facility]11-29-2024 Telephone encounter Note* Telephone Encounter - Dana Demarco LPN - 01/16/2024 12:41 PM EST Destiney states he will be willing to go to another [facility] to get MRI done. Nurse will forward message to scheduling team. Dana Demarco LPN January 16, 2024 12:42 PM [facility]11-29-2024 Miscellaneous Notes* Telephone Encounter - Dana Demarco LPN - 01/16/2024 12:41 PM EST Destiney states he will be willing to go to another [facility] to get MRI done. Nurse will forward message to scheduling team. Dana Demarco LPN January 16, 2024 12:42 PM * Telephone Encounter - Leigh Casillas RN - 01/16/2024 10:10 AM EST [facility]- reports they received an order from Jabier Hoffman for patient for MRI brain wo iv contrast, and MRI 3D Post Procedure 3T only & MRI 3D postprocessing. Reports they do not do 3D post processing 3T only. Reports patient is scheduled for Friday. Asking office to phone her to discuss this order. [phone] documented in [facility]11-29-[facility] Telephone encounter Note * Telephone Encounter - Leigh Casillas RN - 01/16/2024 10:10 AM EST [facility]- reports they received an order from Jabier Hoffman for patient for MRI brain wo iv contrast, and MRI 3D Post Procedure 3T only & MRI 3D postprocessing. Reports they do not do 3D post processing 3T only. Reports patient is scheduled for Friday. Asking office to phone her to discuss this order. [phone] [facility]11-12-[facility] Telephone encounter Note* Telephone Encounter - Dana Demarco LPN - 12/30/2023 10:20 AM EST Spoke to patient, verified name and date of . Advised patient of message below, advised patient will mail out letter with Vitamin B12 regimen dueto not having mychart. Patient verbalized understanding. Dana Demarco LPN December 30, 2023 10:21 AM [facility]11-12-2024 Miscellaneous Notes* Telephone Encounter - Dana Demarco LPN - 12/30/2023 10:20 AM EST Spoke to patient, verified name and date of . Advised patient of message below, advised patient will mail out letter with Vitamin B12 regimen dueto not having mychart. Patient verbalized understanding. Dana Demarco LPN December 30, 2023 10:21 AM * Telephone Encounter - Geovanna Hoffman PA-C - 12/30/2023 7:12 AM EST All labs are normal with the exception of low B12. This can contribute to fatigue, and numbness andtinging symptoms. We need you to replace as follows: B12 Replacement B12 <400: Vitamin B12 level <400, which indicates deficiency. You may start vitamin B12 supplements [available [id number]] orally, according to the following regimen: Vitamin B12, 2 mg (or 2000 micrograms) by mouth daily x1 month. Take together with folic acid 1 mg daily. THEN maintenance with 1 mg (or 1000 micrograms) daily thereafter. Your PCP may recheck vitamin B12 levels in about 6 months to ensure adequate repletion. Geovanna Hoffman PA-C documented in [facility]11-[facility]24 Telephone encounter Note * Telephone Encounter - Geovanna Hoffman PA-C - 12/30/2023 7:12 AM EST All labs are normal with the exception of low B12. This can contribute to fatigue, and numbness andtinging symptoms. We need you to replace as follows: B12 Replacement B12 <400: Vitamin B12 level <400, which indicates deficiency. You may start vitamin B12 supplements [available kckm-heh-xoznrdl] orally, according to the following regimen: Vitamin B12, 2 mg (or 2000 micrograms) by mouth daily x1 month. Take together with folic acid 1 mg daily. THEN maintenance with 1 mg (or 1000 micrograms) daily thereafter. Your PCP may recheck vitamin B12 levels in about 6 months to ensure adequate repletion. Geovanna Hoffman PA-C [facility] Work Phone: [phone]) 629-739111-11-2024 History of Present illness Narrative* Nakul Maddox MD - 12/29/2023 11:00 AM EST Images from the original note were not included. CONSULT ORTHOPAEDIC: HIP PRIMARY CARE PHYSICIAN: Keren Arce MD REFERRING PROVIDER: No referring provider defined for this encounter. ASSESSMENT & PLAN 73-year-old male who presents to the office today for bilateral hip pain right greater than left. He states that the right hip is a 9 out of 10 and the left hip is a 4 out of 10 in severity. He states that he did have a cortisone injection into the right hip approximately 10 years ago which did notprovide much relief. Denies using any current medications for pain, physical therapy, or prior surgeries to the hips. Patient does not smoke. Denies any history of blood clots or use of blood thinners. Patient has used meloxicam in the past which seems to provide some benefit in pain. Hx of DM2 last A1c 6.8 Patient has failed conservative treatment for with regards to their R hip degenerative disease. Discussed surgical treatment in the form of a total hip replacement to address their condition. Discussed the benefits of the operation as well as the risks which include infection, dislocation, femoral nerve palsy, sciatic nerve palsy, dislocation, fracture, loosening of the components, DVT/PE, further need for revision surgery, and other complications related to anesthesia. Discussed various approaches used for total hip arthroplasty including posterior and Anterior-Based Muscle Sparing (ABMS). Patient understands the procedure, risks, and benefits and wishes to proceed with a R Anterior-Based Muscle Sparing total hip arthroplasty. Will schedule appointment for Preop Anesthesia Evaluation. The surgery will be scheduled for [facility]. Surgery: R ABMS INES DVT ppx: ASA Abx: ancef + duricef 1 week TXA: IV Nakul Maddox MD Impression: Bilateral Hip Severe Degenerative Osteoarthritis, Primary Diagnoses: No diagnosis found. Based upon the evaluation today and after discussions with Destiney Ocampo, Destiney Ocampo has significant, worsening pain at the hip. This pain is increased with activity and weight bearing, and interferes with activities of daily living. These symptoms have continued despite a number of non-surgical measures, including a trial of oral pain medication (for at least 12 weeks). At this point, the patient will not benefit from further PT due to the severity of their condition. The patient's physical examination is consistent with limitations in range of motion, pain with passive range of motion, andan antalgic gait. These examination findings are corroborated by imaging findings of joint space phill rowing, periarticular osteophyte formation, and subchondral sclerosis. The patient has been treatedby the practice and all reasonable treatments have failed to control the disease, which causes significant pain and limits activities of daily living. The patient has failed conservative treatment and joint replacement surgery was discussed and agreed upon by both provider and patient. The patient has elected to proceed with surgical management to improve function and relieve pain refractory to non-surgical measures: Right Primary Total Hip Arthroplasty as evidenced by six months of unsuccessful non-operative treatment as outlined in the HPI below. Surgery Details Date and Location: At [place] on TBD. Implants: Both Robotic: No The risks and benefits of surgery were discussed at length including but not limited to the risks of infection, bleeding, nerve or blood vessel injury, deep venous thrombosis, pulmonary embolism, , paralysis, hip dislocation, leg length discrepancy (including requiring use of permanent shoe lift), bone fracture, component loosening or failure requiring re-operation or amputation. Informed consent was obtained and the patient was scheduled. We also discussed fixation strategies including cement and cementless fixation and modern alternative bearings including metal or ceramic with cross-linked polyethylene, egxawqn-bl-ghtclyf and eilkq-nn-putxt as well as advantages and disadvantages of each. We also discussed less invasive surgical approaches and reported benefits and risks of these approaches. The patient has been ordered: No orders found for this visit on 12/29/23. Anemia Screen Albumin Level HbA1C ts CONSULTS: IMPACT/PACE Consult for preoperative clearance. Total Joint Athroplasty - Risk Calculator Risk Factors for Total Knee Arthroplasty (TKA) Major Risk Factors Obesity Unknown Risk High: BMI > 40 Moderate: BMI 30-40 Normal: BMI < 30 Diabetes Moderate Risk High: A1C > 8 Moderate: A1C 7-8 Normal: A1C < 7 Hx of DVT / PE normal High: dx of DVT / PE Normal: no dx of DVT / PE Smoking normal High: Current smoker Normal: Non smoker Narcotics Use normal High:NarxCare >=300 Moderate: 100-299 Normal: 0-99 Depression normal High: PHQ-9 >14 Moderate: PHQ-9 5-14 Normal: PHQ-9 < 5 Area Deprivation Index (MARTHA) Unknown Risk High: MARTHA Score > 75 Moderate: MARTHA 50-75 Normal: MARTHA < 50 Obesity: height and/or weight are out of date (There is no height and/or weight reading in the [id number] days, so the below BMI readings may be inaccurate) BMI Readings from Last 3 Encounters: 12/24/23 : 34.52 kg/m 10/15/23 : 33.25 kg/m 05/07/23 : (P) 33.67 kg/m Diabetes: Well controlled - Destiney has been diagnosed with Type 2 Diabetes. His last Hemoglobin A1Cwas 6.8 (10/07/2023). Pt is followed by Lon Garcia for Type 2 Diabetes - last seen on 10/15/2023. Area Deprivation Index (MARTHA) 08/10/2021 07/26/2022 MARTHA Score National Score 48 48 Patient Health Questionnaire (PHQ-9) 01/16/2017 08/10/2021 10/15/2023 PHQ-9 PHQ-2 Score 6 0 0 PHQ-9 Score 14 (0-4) minimal depression, (5-9) mild depression, (10-14) moderate depression, (15-19) moderately severe depression, (20-27) severe depression Bone Density Risk Screen Destiney Ocampo is at risk for bone loss and has not had a bone densitometry scan in the last 2 years (date of last scan: None on file). Recommend a bone densitometry scan and if indicated on the bone density results, a consult to a bone health specialist (Rheumatology, Endocrinology, or Women's Health) for bone assessment. Risk Factors: Use of Proton Pump Inhibitors Prednisone or use of systemic steroids Additional Risk Factors Obstructive Sleep Apnea (RAJI) Malnutrition: No Malnutrition Screening Tool (MST) score on file- please complete the MST screeningtool (click here to open) and refresh the note. ACTIVE PROBLEM LIST Pure Hypercholesterolemia Diverticulosis of Colon (Without Mention of Hemorrhage) PAIN HIP JOINT HIATAL HERNIA ESOPHAGITIS REFLUX Acute Gastritis Without Mention of Hemorrhage Benign Neoplasm of Colon Hypertension Diabetes Mellitus Type 2, Controlled, Without Complications (Hcc) Neck Pain Cervical Radiculopathy Midline Thoracic Back Pain Numbness and Tingling of Right Upper Extremity Numbness and Tingling in Left Upper Extremity Cervical Spondylosis Without Myelopathy Benign Non-Nodular Prostatic Hyperplasia With Lower Urinary Tract Symptoms Shoulder Arthritis Prostate Cancer (Hcc) Pulmonary Nodule/Lesion, Solitary RAJI (obstructive sleep apnea) AHI 39 Complaints of Memory Disturbance Abnormal X-Ray Chronic Fatigue Headaches Diplopia SUBJECTIVE CHIEF COMPLAINT: Hip Pain HPI: Destiney Ocampo is a 73 year old patient . Destiney Ocampo has had progressive problems with the hip(s) multiple times a day over the past 5 year(s) interfering with activities which include enjoying hobbies, rising from a sitting position, and standing for prolonged periods of time. The problem began limiting activities 3+ years ago. PROMIS Physical Function Score No data to display FUNCTIONAL STATUS: Do yardwork, such as raking leaves, weeding,or pushing a power mower (4.50 METs) Climb a flight of stairs or walk up a hill (5.50 METs) PREVIOUS TREATMENTS: Current Anti-Inflammatory medications: meloxicam Past anti-inflammatory medications (not necessarily for this reason for visit): meloxicam, naproxen, prednisone Medical: Steroid Injections Right Hip REVIEW OF SYSTEMS: GENERAL: Denies fever, chills malaise and weight loss.. PAIN ASSESSMENT: See HPI. CARDIOVASCULAR: Denies chest pain, history of A-fib, valvular disease, hypertension, CHF or pacemaker/ICD.. RESPIRATORY: Denies SOB, sputum production, dyspnea, COPD and hemoptysis.. GI: Denies GI ulcers, inflammatory disease, ascites or liver disease.. MUSCULOSKELETAL: See HPI. NEURO: Denies CVA, seizures, headaches.. ENDOCRINE: Denies diabetes, thyroid disease.. No data to display PAST MEDICAL HISTORY Diagnosis Date Abdominal pain, other specified site Benign neoplasm of colon Chronic fatigue 05/22/2023 Fatigue and malaise noted Diaphragmatic hernia without mention of obstruction or gangrene Diplopia 2018 Started before 2018; had workup in 2018 due to more frequent episodes of diplopia Diverticulosis of colon (without mention of hemorrhage) Diverticulosis Dysthymic disorder Depression (non-psychotic) Headaches 05/22/2023 Chronic for years RAJI (obstructive sleep apnea) Pure hypercholesterolemia PAST SURGICAL HISTORY Procedure Laterality Date COLONOSCOPY FLX DX W/COLLJ SPEC WHEN PFRMD Colonoscopy COLONOSCOPY FLX DX W/COLLJ SPEC WHEN PFRMD 01/18/2011 Colonoscopy COLSC FLX W/RMVL OF TUMOR POLYP LESION SNARE TQ 04/24/07 Diverticulosis and prox. sigmoid polyp EGD TRANSORAL BIOPSY SINGLE/MULTIPLE 04/24/07 HH, esophagitis,gastritis ESOPHAGOGASTRODUODENOSCOPY TRANSORAL DIAGNOSTIC 10/30/2012 EGD HEART CATHETERIZATION 2012 LITHOTRIPSY XTRCORP SHOCK WAVE Lithotripsy FAMILY HISTORY Problem Relation Age of Onset Psychiatry Father suicide age 44 Diabetes Mother COPD Mother Social History Tobacco Use Smoking status: Former Current packs/day: 0.00 Average packs/day: 1 pack/day for 30.0 years (30.0 ttl pk-yrs) Types: Cigarettes Start date: 12/18/1974 Quit date: 12/18/2004 Years since quittin.0 Smokeless tobacco: Former Tobacco comments: less than 1/2 pack daily Substance Use Topics Alcohol use: Yes Comment: rarely beer Drug use: No ALLERGIES: Lisinopril MEDICATIONS: meloxicam (MOBIC) 15 mg tablet Take 1 tablet by mouth once daily. ketoconazole (NIZORAL) 2 % cream Apply 1 application to affected area two times a day. Continue for1 week after rash resolves. metFORMIN ER (GLUCOPHAGE XR) 500 mg 24 hr tablet Take 1 tablet by mouth daily with breakfast. metoprolol succinate ER (TOPROL XL) 25 mg 24 hr tablet Take 1 tablet by mouth once daily. omeprazole (PRILOSEC) 20 mg capsule Take 1 capsule by mouth two times a day. traZODone (DESYREL) 50 mg tablet Take 0.5-1 tablets by mouth at bedtime as needed (sedation). nystatin (MYCOSTATIN) powder Apply 1 application to affected area four times daily. Continue to usefor a week after rash resolves. Use as needed for recurrences ENTRESTO 49-51 mg tablet Take 1 tablet by mouth two times a day. (getting from patient assistance) famotidine (PEPCID) 20 mg tablet Take 1 tablet by mouth at bedtime as needed. venlafaxine ER (EFFEXOR XR) 75 mg 24 hr capsule Take 1 capsule by mouth daily at bedtime. Magnesium 250 mg tab Take 1 tablet by mouth two times a day. Cholecalciferol, Vitamin D3, 50 mcg (2,000 unit) cap Take 1 capsule by mouth once daily. atorvastatin (LIPITOR) 40 mg tablet TAKE 1 TABLET BY MOUTH EVERY DAY FOR 90 DAYS aspirin 81 mg chewable tablet Take 81 mg by mouth. COMPOUNDED PRESCRIPTION Generic Glucometer - I each 50 strips and lancets. Re: Diabetes mellitus controlled with hypoglycemia. Lancets lancets Test blood sugar(s) 1-2 times daily or as directed. Dx: Type 2 DM - Controlled E11.9 Insulin: No blood sugar diagnostic (BLOOD GLUCOSE TEST) test strip Test blood sugar(s) 1-2 times daily or as directed. Dx: Type 2 DM - Controlled E11.9 Insulin: No Blood-Glucose Meter monitoring kit Glucose Meter of Choice (per insurance coverage)- Kit - Dx: Type2 DM - Controlled E11.9, Test 1-2 times a day or as directed. No insulin DOCUSATE CALCIUM (STOOL SOFTENER ORAL) Take by mouth as needed. OBJECTIVE PHYSICAL EXAM There were no vitals taken for this visit. All other systems deferred. GENERAL: Appears healthy, well-nourished, no deformities. HABITUS: Normal GAIT: Antalgic to the right HIP EXAM: LLD: equal Right: ROM: Extension: full extension Flexion: 90 degrees Internal Rotation: 5 degrees External Rotation: 20 degrees Abduction: 25 degrees Adduction: 25 degrees Strength: Abduction 5/5 and Flexion 5/5 Palpation: ttp groin Log roll: non-painful. Straight leg raise: Positive, reproducing hip symptoms Neurovascular Status: Sensation Intact, Moves foot and ankle up & down, and 2+ dorsalis pedis DATA: Diagnostic tests reviewed for today's visit: Right hip X-Ray: Severe degenerative changes, Moderate loss of superior joint space , and Osteophytes Left hip X-Ray: Moderate degenerative changes and Severe loss of superior joint space The following conditions were addressed during the office visit today: I spent a total of approximately 50 minutes on the date of the service which included preparing to see the patient, fucl-fr-czao patient care, completing clinical documentation, obtaining and/or reviewing separately obtained history, performing a medically appropriate examination, counseling and educating the patient/family/caregiver, ordering medications, tests, or procedures, communicating withother HCPs (not separately reported), independently interpreting results (not separately reported),communicating results to the patient/family/caregiver, and care coordination (not separately reported). SIGNATURE: Nakul Maddox MD PATIENT NAME: Destiney Ocampo DATE: December 29, 2023 TIME: 8:13 AM documented in [facility]11-[facility]24 NoteHNO ID: [id number] Author: NAKUL MADDOX MD Service: ? Author Type: Physician Type: Progress Notes Filed: 12/29/2023 11:03 Note Text: CONSULT ORTHOPAEDIC: HIP PRIMARY CARE PHYSICIAN: eKren Arce MD REFERRING PROVIDER: No referring provider defined for this encounter. ASSESSMENT AND PLAN 73-year-old male who presents to the office today for bilateral hip pain right greater than left. He states that the right hip is a 9 out of 10 and the left hip is a 4 out of 10 in severity. He states that he did have a cortisone injection into the right hip approximately 10 years ago which did not provide much relief. Denies using any current medications for pain, physical therapy, or prior surgeries to the hips. Patient does not smoke. Denies any history of blood clots or use of blood thinners. Patient has used meloxicam in the past which seems to provide some benefit in pain. Hx of DM2 last A1c 6.8 Patient has failed conservative treatment for with regards to their R hip degenerative disease. Discussed surgical treatment in the form of a total hip replacement to address their condition. Discussed the benefits of the operation as well as the risks which include infection, dislocation, femoral nerve palsy, sciatic nerve palsy, dislocation, fracture, loosening of the components, DVT/PE, further need for revision surgery, and other complications related to anesthesia. Discussed various approaches used for total hip arthroplasty including posterior and Anterior-Based Muscle Sparing (ABMS). Patient understands the procedure, risks, and benefits and wishes to proceed with a R Anterior-Based Muscle Sparing total hip arthroplasty. Will schedule appointment for Preop Anesthesia Evaluation. The surgery will be scheduled for [facility]. Surgery: R ABMS INES DVT ppx: ASA Abx: ancef + duricef 1 week TXA: ROLA Maddox MD Impression: Bilateral Hip Severe Degenerative Osteoarthritis, Primary Diagnoses: No diagnosis found. Based upon the evaluation today and after discussions with Destiney Ocampo, Destiney Ocampo has significant, worsening pain at the hip. This pain is increased with activity and weight bearing, and interferes with activities of daily living. These symptoms have continued despite a number of non-surgical measures, including a trial of oral pain medication (for at least 12 weeks). At this point, the patient will not benefit from further PT due to the severity of their condition. The patient's physical examination is consistent with limitations in range of motion, pain with passive range of motion, and an antalgic gait. These examination findings are corroborated by imaging findings of joint space narrowing, periarticular osteophyte formation, and subchondral sclerosis. The patient has been treated by the practice and all reasonable treatments have failed to control the disease, which causes significant pain and limits activities of daily living. The patient has failed conservative treatment and joint replacement surgery was discussed and agreed upon by both provider and patient. The patient has elected to proceed with surgical management to improve function and relieve pain refractory to non-surgical measures: Right Primary Total Hip Arthroplasty as evidenced by six months of unsuccessful non-operative treatment as outlined in the HPI below. Surgery Details Date and Location: At [place] on TBD. Implants: Both Robotic: No The risks and benefits of surgery were discussed at length including but not limited to the risks of infection, bleeding, nerve or blood vessel injury, deep venous thrombosis, pulmonary embolism, , paralysis, hip dislocation, leg length discrepancy (including requiring use of permanent shoe lift), bone fracture, component loosening or failure requiring re-operation or amputation. Informed consent was obtained and the patient was scheduled. We also discussed fixation strategies including cement and cementless fixation and modern alternative bearings including metal or ceramic with cross-linked polyethylene, [id number]-[id number] and trzes-xg-hcufe as well as advantages and disadvantages of each. We also discussed less invasive surgical approaches and reported benefits and risks of these approaches. The patient has been ordered: No orders found for this visit on 12/29/23. Anemia Screen Albumin Level HbA1C ts CONSULTS: IMPACT/PACE Consult for preoperative clearance. Total Joint Athroplasty - Risk Calculator Risk Factors for Total Knee Arthroplasty (TKA) Major Risk Factors Obesity Unknown Risk High: BMI > 40 Moderate: BMI 30-40 Normal: BMI < 30 Diabetes Moderate Risk High: A1C > 8 Moderate: A1C 7-8 Normal: A1C < 7 Hx of DVT / PE normal High: dx of DVT / PE Normal: no dx of DVT / PE Smoking normal High: Current smoker Normal: Non smoker Narcotics Use normal High:NarxCare >=300 Moderate: 100-299 Normal: 0-99 (more content not included)...[facility]11-07-2024 Telephone encounter Note* Telephone Encounter - Dana Demarco LPN - 12/25/2023 4:25 PM EST Spoke to patient, advised referral has approved. Advised patient to call [facility] central scheduling to schedule appointment. Patient verbalized understanding. Dana Demarco LPN December 25, 2023 4:26 PM [facility]11-07-2024 Miscellaneous Notes* Telephone Encounter - Dana Demarco LPN - 12/25/2023 4:25 PM EST Spoke to patient, advised referral has approved. Advised patient to call [facility] central scheduling to schedule appointment. Patient verbalized understanding. Dana Demarco LPN December 25, 2023 4:26 PM * Telephone Encounter - Sasha Kamara RN - 12/25/2023 4:03 PM EST Patient's spouse Pat is calling to ask for status update of referral for patient to have Brain MRI at [facility]. They would like to schedule this when able. Please call spouse with any updates of referral. Patient also given [facility] phone number to contact their Central Scheduling department as well. Sasha Kamara RN documented [facility] Telephone encounter Note * Telephone Encounter - Sasha Kamara RN - 12/25/2023 4:03 PM EST Patient's spouse Pat is calling to ask for status update of referral for patient to have Brain MRI at [facility]. They would like to schedule this when able. Please call spouse with any updates of referral. Patient also given [facility] phone number to contact their Central Scheduling department as well. Sasha Kamara RN [facility]11-06-2024 Instructions* Patient Instructions* Geovanna Hoffman PA-C - 12/24/2023 8:52 AM EST MRI of the brain Laboratory studies Neuropsychological testing for memory if you would like Increase physical and cognitive activity Follow up after testing documented in [facility]24 NoteHNO ID: [id number] Author: GEOVANNA HOFFMAN PA-C Service: ? 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 Recommendations will be communicated via shared medical record or US mail. Chief Complaint:New Patient (Diplopia, headaches) 12/24/2023 - General NeurologyGeovanna PA-C ASSESSMENT ASSESSMENT/PLAN: 1. Brain fog - ICD9: 799.59, ICD10: R41.89 (primary diagnosis) 2. Diplopia - ICD9: 368.2, ICD10: H53.2 3. Memory loss - ICD9: 780.93, ICD10: R41.3 4. Other fatigue - ICD9: 780.79, ICD10: R53.83 Patient presents for multiple neurologic concerns that been ongoing for at least 6+ years. Had an MRI done in 2018 for this which did not show any acute abnormality, had repeat CT done a few weeks ago that was again normal. Patient reports symptoms have been constant since they started, unsure if they started gradually or acutely. Notes he has had double vision daily, constantly, described as a slight overlay of objects, no [id number] imaging. Has seen an eye doctor multiple times with no etiology found. MRI of the brain in the past was negative, unclear etiology for this. No associated symptoms with it and notes that it is constant. Discussed it could be muscle atrophy of the eyes as well contributing but will repeat MRI due to this and other neurologic concerns. Patient also with significant fatigue, daily, notes that he tried CPAP for 5 to 6 years with no benefit. Notes that he sleeps well but does not seem to matter, he is fatigued all day long every day. Patient does report chronic history of depression, was on Effexor for many years and recently tried Wellbutrin but states he had side effects so he is not on any medications anymore. Notes he did not experience any benefit with the medications and did not notice any change when he came off the meds. However, will obtain basic blood work looking for common causes of fatigue. Finally, patient with brain fog that has been constant over the last 6+ years, notes it is very frustrating as he has been worked up with no answers found. [place] today was 24/30 and discussed this does fit for mild cognitive impairment, discussed possible pseudodementia with likely depression and possibly untreated deep apnea playing a role. Patient did get frustrated with this. Discussed neuropsychological testing but patient does not want to have this completed as he feels it is not related to his other symptoms including fatigue and double vision. Will complete MRI of the brain with volumetric analysis to look for any signs of neurodegenerative disease. Patient to continue following primary care for depression management. Encouraged conservative therapy for memory including increasing physical and cognitive activity. Patient and agreeable to treatment plan of care at this time, questions were answered. Patient to follow-up after studies are completed. Geovanna Hoffman PA-C Encounter Diagnosis ICD-10-CM 1. Brain fog R41.89 MRI BRAIN WO IVCON MRI 3D POST PROCESSING NEUROPSYCHOLOGICAL TESTING CONSULT 2. Diplopia H53.2 MRI 3D POST PROCESSING 3. Headaches R51.9 MRI 3D POST PROCESSING 4. Memory loss R41.3 MRI BRAIN WO IVCON MRI 3D POST PROCESSING VITAMIN B12 THYROID STIMULATING HORMONE METHYLMALONIC ACID SYPHILIS TREPONEMAL W/REFLEX FOLATE, SERUM NEUROPSYCHOLOGICAL TESTING CONSULT 5. Other fatigue R53.83 Return in about 3 months (around 03/25/2024). Chart, labs,and relevant images reviewed. HPI: CT brain ordered for double visoin and headaches, this was normal. This is a 73 year old male presenting with multiple neurologic concerns. Patient notes that for at least 6+ years he has been experiencing daily double vision, significant daytime fatigue and brain fog. The symptoms are constant, unchanged, unsure if they started gradually her son. Did have an MRI in the past that was normal. Notes that the double vision is described as seeing 2 of something slightly layered on top of each other, not [id number]. It is constant, has seen an eye doctor multiple times, most recently was a few months ago and no abnormalities were found. No blurred vision with it, no headaches, no other symptoms associated with the double vision. Has tried glasses but no help with these. Regarding fatigue, notes this has been chronic for at least 6+ years, notes that every day he is exhausted. Had a sleep study which showed sleep apnea and he tried a CPAP machine for 5 to 6 years with no benefit and no change in his symptoms. Notes that he sleeps relatively well and he still feels fatigued throughout the day. Does not snore, no dry mouth in the morning or headaches but does wake up frequently th (more content not included)...[facility]11-06-2024 History of Present illness Narrative* Geovanna Hoffman PA-C - 12/24/2023 8:18 AM EST Images from the original note were not included. [facility] Name: Destiney Ocampo Age: [age] year old Gender: male Primary Care Provider: Keren Arce MD Consult requested for vision changes and headache by Lon Garcia. Recommendations will be communicated via shared medical record or US mail. Chief Complaint:New Patient (Diplopia, headaches) 12/24/2023 - General NeurologyGeovanna PA-C ASSESSMENT ASSESSMENT/PLAN: 1. Brain fog - ICD9: 799.59, ICD10: R41.89 (primary diagnosis) 2. Diplopia - ICD9: 368.2, ICD10: H53.2 3. Memory loss - ICD9: 780.93, ICD10: R41.3 4. Other fatigue - ICD9: 780.79, ICD10: R53.83 Patient presents for multiple neurologic concerns that been ongoing for at least 6+ years. Had an MRI done in 2018 for this which did not show any acute abnormality, had repeat CT done a few weeks ago that was again normal. Patient reports symptoms have been constant since they started, unsure if they started gradually or acutely. Notes he has had double vision daily, constantly, described as a slight overlay of objects, no vpfs-qd-[id number] imaging. Has seen an eye doctor multiple times with no etiology found. MRI of the brain in the past was negative, unclear etiology for this. No associated symptoms with it and notes that it is constant. Discussed it could be muscle atrophy of the eyes as well contributing but will repeat MRI due to this and other neurologic concerns. Patient also with significant fatigue, daily, notes that he tried CPAP for 5 to 6 years with no benefit. Notes that he sleeps well but does not seem to matter, he is fatigued all day long every day. Patient does report chronic history of depression, was on Effexor for many years and recently tried Wellbutrin but states he had side effects so he is not on any medications anymore. Notes he did not experience any benefit with the medications and did not notice any change when he came off the meds. However, will obtain basic blood work looking for common causes of fatigue. Finally, patient with brain fog that has been constant over the last 6+ years, notes it is very frustrating as he has been worked up with no answers found. [place] today was 24/30 and discussed this does fit for mild cognitive impairment, discussed possible pseudodementia with likely depression and possibly untreated deep apnea playing a role. Patient did get frustrated with this. Discussed neuropsychological testing but patient does not want tohave this completed as he feels it is not related to his other symptoms including fatigue and double vision. Will complete MRI of the brain with volumetric analysis to look for any signs of neurodegenerative disease. Patient to continue following primary care for depression management. Encouraged conservative therapy for memory including increasing physical and cognitive activity. Patient and agreeable to treatment plan of care at this time, questions were answered. Patientto follow-up after studies are completed. Geovanna Hoffman PA-C Encounter Diagnosis ICD-10-CM 1. Brain fog R41.89 MRI BRAIN WO IVCON MRI 3D POST PROCESSING NEUROPSYCHOLOGICAL TESTING CONSULT 2. Diplopia H53.2 MRI 3D POST PROCESSING 3. Headaches R51.9 MRI 3D POST PROCESSING 4. Memory loss R41.3 MRI BRAIN WO IVCON MRI 3D POST PROCESSING VITAMIN B12 THYROID STIMULATING HORMONE METHYLMALONIC ACID SYPHILIS TREPONEMAL W/REFLEX FOLATE, SERUM NEUROPSYCHOLOGICAL TESTING CONSULT 5. Other fatigue R53.83 Return in about 3 months (around 03/25/2024). Chart, labs,and relevant images reviewed. HPI: CT brain ordered for double visoin and headaches, this was normal. This is a 73 year old male presenting with multiple neurologic concerns. Patient notes that for at least 6+ years he has been experiencing daily double vision, significant daytime fatigue and brain fog. The symptoms are constant, unchanged, unsure if they started gradually her son. Did have an MRI in the past that was normal. Notes that the double vision is described as seeing 2 of something slightly layered on top of each other, not [id number]. It is constant, has seen an eye doctor multiple times, most recently was a few months ago and no abnormalities were found. No blurred vision with it, no headaches, no other symptoms associated with the double vision. Has tried glasses but no help with these. Regarding fatigue, notes this has been chronic for at least 6+ years, notes that every day he is exhausted. Had a sleep study which showed sleep apnea and he tried a CPAP machine for 5 to 6 years with no benefit and no change in his symptoms. Notes that he sleeps relatively well and he still feels fatigued throughout the day. Does not snore, no dry mouth in the morning or headaches but does wake up frequently throughout the day. Estimates 2-6 times a night and is waking up, attributes it to aches and pains, currently has right hip pain and is scheduled for replacement. Also notes strong history of depression, mother with depression and father committed suicide, patient has been treated for d epression. Was on Effexor for many years and recently tried Wellbutrin but had side effects. Statesthat he is done with medications as they never helped him in the past. Is unsure if his depression is causing any of his other symptoms. Patient also with brain fog, notes that he has issue with short-term memory. Since present all the time, notes that he has issues with word recall as well. Still driving without any issues, no getting lost, no tickets or accidents. No leaving the stove on, faucet running. Able to complete ADLs without any issue. No issues with long-term memory. No personality changes, is unsure if his symptoms have worsened since he started Ofev been stable. Denies any tremor, anosmia, micrographia, hallucinations. Does have intermittent constipation and takes a supplement for this. Has hit his a few times in his sleep over the last 20 years but this is not consistent. No family history of Parkinson's or dementia. No diet restrictions, but does not eat a lot of fruits or vegetables. Drinks a few alcoholic beverages a week but no heavy alcohol use. Does not take any other supplements. Of note, compliant with aspirin and cholesterol medications. Review of Systems ACTIVE PROBLEM LIST Pure Hypercholesterolemia Diverticulosis of Colon (Without Mention of Hemorrhage) PAIN HIP JOINT HIATAL HERNIA ESOPHAGITIS REFLUX Acute Gastritis Without Mention of Hemorrhage Benign Neoplasm of Colon Hypertension Diabetes Mellitus Type 2, Controlled, Without Complications (Hcc) Neck Pain Cervical Radiculopathy Midline Thoracic Back Pain Numbness and Tingling of Right Upper Extremity Numbness and Tingling in Left Upper Extremity Cervical Spondylosis Without Myelopathy Benign Non-Nodular Prostatic Hyperplasia With Lower Urinary Tract Symptoms Shoulder Arthritis Prostate Cancer (Hcc) Pulmonary Nodule/Lesion, Solitary RAJI (obstructive sleep apnea) AHI 39 Complaints of Memory Disturbance Abnormal X-Ray Chronic Fatigue Headaches Diplopia PAST MEDICAL HISTORY Diagnosis Date Abdominal pain, other specified site Benign neoplasm of colon Chronic fatigue 05/22/2023 Fatigue and malaise noted Diaphragmatic hernia without mention of obstruction or gangrene Diplopia 2018 Started before 2018; had workup in 2018 due to more frequent episodes of diplopia Diverticulosis of colon (without mention of hemorrhage) Diverticulosis Dysthymic disorder Depression (non-psychotic) Headaches 05/22/2023 Chronic for years RAJI (obstructive sleep apnea) Pure hypercholesterolemia Medications: Reviewed meloxicam (MOBIC) 15 mg tablet Take 1 tablet by mouth once daily. ketoconazole (NIZORAL) 2 % cream Apply 1 application to affected area two times a day. Continue for1 week after rash resolves. metFORMIN ER (GLUCOPHAGE XR) 500 mg 24 hr tablet Take 1 tablet by mouth daily with breakfast. metoprolol succinate ER (TOPROL XL) 25 mg 24 hr tablet Take 1 tablet by mouth once daily. omeprazole (PRILOSEC) 20 mg capsule Take 1 capsule by mouth two times a day. traZODone (DESYREL) 50 mg tablet Take 0.5-1 tablets by mouth at bedtime as needed (sedation). nystatin (MYCOSTATIN) powder Apply 1 application to affected area four times daily. Continue to usefor a week after rash resolves. Use as needed for recurrences ENTRESTO 49-51 mg tablet Take 1 tablet by mouth two times a day. (getting from patient assistance) famotidine (PEPCID) 20 mg tablet Take 1 tablet by mouth at bedtime as needed. venlafaxine ER (EFFEXOR XR) 75 mg 24 hr capsule Take 1 capsule by mouth daily at bedtime. Magnesium 250 mg tab Take 1 tablet by mouth two times a day. Cholecalciferol, Vitamin D3, 50 mcg (2,000 unit) cap Take 1 capsule by mouth once daily. atorvastatin (LIPITOR) 40 mg tablet TAKE 1 TABLET BY MOUTH EVERY DAY FOR 90 DAYS aspirin 81 mg chewable tablet Take 81 mg by mouth. COMPOUNDED PRESCRIPTION Generic Glucometer - I each 50 strips and lancets. Re: Diabetes mellitus controlled with hypoglycemia. Lancets lancets Test blood sugar(s) 1-2 times daily or as directed. Dx: Type 2 DM - Controlled E11.9 Insulin: No blood sugar diagnostic (BLOOD GLUCOSE TEST) test strip Test blood sugar(s) 1-2 times daily or as directed. Dx: Type 2 DM - Controlled E11.9 Insulin: No Blood-Glucose Meter monitoring kit Glucose Meter of Choice (per insurance coverage)- Kit - Dx: Type2 DM - Controlled E11.9, Test 1-2 times a day or as directed. No insulin DOCUSATE CALCIUM (STOOL SOFTENER ORAL) Take by mouth as needed. ALLERGIES Allergen Reactions Lisinopril Cough FAMILY HISTORY Problem Relation Age of Onset Psychiatry Father suicide age 44 Diabetes Mother COPD Mother PAST SURGICAL HISTORY Procedure Laterality Date COLONOSCOPY FLX DX W/COLLJ SPEC WHEN PFRMD Colonoscopy COLONOSCOPY FLX DX W/COLLJ SPEC WHEN PFRMD 01/18/2011 Colonoscopy COLSC FLX W/RMVL OF TUMOR POLYP LESION SNARE TQ 04/24/07 Diverticulosis and prox. 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 Language was fluent. Followed simple and complex commands. Psych: Laughing frequently, making jokes throughout appointment Cranial Nerves: Visual clement were full tested binocularly to finger counting in all 4 quadrants with no visual extinction. Pupils were equal and both reactive to light. Extraocular movements were full with no diplopia or nystagmus. Facial sensation was normal to light touch in V1 to V3. Facial strength was symmetric. Normal hearing grossly bilaterally. Palatal raise was symmetric. Shoulder shrug was symmetric. Tongue protrusion was symmetric with no fasciculations. Right Left Shoulder Abduction: 5 5 Elbow Extension 5 5 Elbow Flexion 5 5 Wrist Extension 5 5 Finger Extension 5 5 Finger Abduction 5 5 Right Left Hip Flexion 5 5 Knee Extension 5 5 Knee Flexion 5 5 Dorsiflexion 5 5 Plantar Flexion 5 5 Rest tremor: absent Tone: Normal in all four limbs Reflexes: 1+/4 to the upper extremities bilaterally, negative Alfredo, absent reflexes to the lower extremities Sensory: Intact vibration to the lower extremities and upper extremities, intact to light touch throughout. Coordination: Normal finger to nose and heel to burch testing bilaterally. Negative romberg but withslight sway. Normal gait Labs: Lab Results Component Value Date WBC 10.38 10/07/2023 HCT 45.1 10/07/2023 MCV 85.7 10/07/2023 PLT 179 10/07/2023 Lab Results Component Value Date HBA1C 6.8 10/07/2023 HBA1C 6.7 04/07/2023 HBA1C 6.5 09/26/2022 HBA1C 7.5 10/11/2020 HBA1C 7.0 06/26/2020 HBA1C 7.1 02/24/2019 HBA1C 7.4 11/19/2018 HBA1C 6.2 02/11/2018 HBA1C 6.2 09/04/2017 Cholesterol, Total Date Value Ref Range Status 10/07/2023 136 <200 mg/dL Final Comment: <200 mg/dL, Desirable 200-239 mg/dL, Borderline high >239 mg/dL, High HDL Cholesterol Date Value Ref Range Status 10/07/2023 35 (L) >39 mg/dL Final Comment: 40-59 mg/dL, Acceptable >59 mg/dL, High: Negative risk factor for coronary heart disease <40 mg/dL, Low: Positive risk factor for coronary heart disease LDL Cholesterol Date Value Ref Range Status 10/07/2023 83 <100 mg/dL Final Comment: <100 mg/dL, Optimal 100-129 mg/dL, Near optimal/above optimal 130-159 mg/dL, Borderline high 160-189 mg/dL, High >189 mg/dL, Very high Secondary prevention optimal LDL Cholesterol levels are recommended to be < 70 mg/dL Triglyceride Date Value Ref Range Status 10/07/2023 92 <150 mg/dL Final Comment: <150 mg/dL, Normal 150-199 mg/dL, Borderline high 200-499 mg/dL, High >499 mg/dL, Very high Radiology: CT brain 11/30- No acute abnormality This note was dictated using agreement24 [email or web address] speech recognition software and may contain some errors that were a result of the program not accurately transcribing what was dictated, despite efforts to make corrections. Note that unless urgent, test and MRI results will be discussed at next follow- up visit. PROMIS (Patient-Reported Outcomes Measurement Information System) is a set of person-centered measures that evaluates and monitors physical, social, and emotional health. It can be used with the general population and with individuals living with chronic conditions. PROMIS 10: PHYSICAL AND MENTAL HEALTH: 10/15/2023 PHQ-9 PHQ-2 Score 0 Medical Decision Making: Medical Decision Making Level: 1 - N/A I spent a total of 60 minutes on the date of the service which included preparing to see the patient, [id number] patient care, completing clinical documentation, obtaining and/or reviewing separately obtained history, performing a medically appropriate examination, counseling and educating the pat ient/family/caregiver, and ordering medications, tests, or procedures. [facility] Telephone encounter Note * Telephone Encounter - Jhon Elvin Peters Maria Fernanda - 12/19/2023 1:19 PM EDT Patient has been scheduled for 12-29-2023. Maria Fernanda Oconnor Sedc [facility]11-01-2024 Miscellaneous Notes* Telephone Encounter - Saidaeliana Peters Maria Fernanda - 12/19/2023 1:19 PM EDT Patient has been scheduled for 12-29-2023. Maria Fernanda Oconnor Sedc * Telephone Encounter - Cristiane Dejesus - 12/15/2023 2:38 PM EDT Lvm for patient to call back and schedule an appointment with Dr. Maddox * Telephone Encounter - Jhon Peters Maria Fernanda - 12/15/2023 1:22 PM EDT Patient has already seen Breonna regarding hip pain. He would now like to come in and see Dr. Maddox to talk about surgery and get scheduled. Please reach out and schedule patient for an appointment to discuss surgery with Dr. Maddox for total hip replacement. Maria Fernanda Ferreira Elvin Peters documented [facility] Telephone encounter Note * Telephone Encounter - Cristiane Dejesus - 12/15/2023 2:38 PM EDT Lvm for patient to call back and schedule an appointment with Dr. Maddox [facility] Telephone encounter Note* Telephone Encounter - Maria Fernanda Win - 12/15/2023 1:22 PM EDT Patient has already seen Breonan regarding hip pain. He would now like to come in and see Dr. Maddox to talk about surgery and get scheduled. Please reach out and schedule patient for an appointment to discuss surgery with Dr. Maddox for total hip replacement. Maria Fernanda Ferreira Elvin [facility]10-25-2024 NoteHNO ID: [id number] Author: BREONNA POLK PA-C Service: ? 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 ASSESSMENT AND PLAN Destiney is a 73-year-old male who presents to the office today for bilateral hip pain right greater than left. He states that the right hip is a 9 out of 10 and the left hip is a 4 out of 10 in severity. He states that he did have a cortisone injection into the right hip approximately 10 years ago which did not provide much relief. Denies using any current medications for pain, physical therapy, or prior surgeries to the hips. Patient does not smoke. Denies any history of blood clots or use of blood thinners. Patient has used meloxicam in the past which seems to provide some benefit in pain. We discussed various treatment options including anti-inflammatories, physical therapy, repeat intra-articular cortisone injection and ultimately surgical intervention with total hip arthroplasty. Due to the patient's joint space on x-ray and minimal conservative measures thus far, we will provide him with a prescription for meloxicam 15 mg to be taken daily. We did discuss the possibility of intra-articular cortisone injection should he require more aggressive therapy. We did discuss total hip arthroplasty as this would be the final step in taking care of his hip arthritis. Patient was provided with contact information for myself and Dr. Nakul Maddox should he choose to pursue surgical intervention. Impression: Bilateral Hip Moderate Degenerative Osteoarthritis, Primary Diagnoses: (M16.0) Primary osteoarthritis of both hips (primary encounter diagnosis) After discussion with Destiney Ocampo, continued non-operative management of NSAIDS was chosen. The patient currently has had six months of unsuccessful non-operative treatment as outlined in the HPI below and progressive symptoms. Progressive symptoms include: Pain worsened by weight bearing Pain effecting living situation Pain limiting ability to stay fit and healthy Unable to ambulate 2 blocks without significant pain and dysfunction. The patient has been ordered: Office Visit on 12/10/23 meloxicam (MOBIC) 15 mg tablet No orders placed today. CONSULTS: Patient does not require consults for optimization at this time. Total Joint Athroplasty - Risk Calculator Risk Factors for Total Knee Arthroplasty (TKA) Major Risk Factors Obesity Unknown Risk High: BMI > 40 Moderate: BMI 30-40 Normal: BMI < 30 Diabetes Moderate Risk High: A1C > 8 Moderate: A1C 7-8 Normal: A1C < 7 Hx of DVT / PE normal High: dx of DVT / PE Normal: no dx of DVT / PE Smoking normal High: Current smoker Normal: Non smoker Narcotics Use normal High:NarxCare >=300 Moderate: 100-299 Normal: 0-99 Depression normal High: PHQ-9 >14 Moderate: PHQ-9 5-14 Normal: PHQ-9 < 5 Area Deprivation Index (MARTHA) Unknown Risk High: MARTHA Score > 75 Moderate: MARTHA 50-75 Normal: MARTHA < 50 Obesity: height and/or weight are out of date (There is no height and/or weight reading in the past 365 days, so the below BMI readings may be inaccurate) BMI Readings from Last 3 Encounters: 10/15/23 : 33.25 kg/m? 05/07/23 : (P) 33.67 kg/m? 04/16/23 : (P) 33.67 kg/m? Diabetes: Well controlled - Destiney has been diagnosed with Type 2 Diabetes. His last Hemoglobin A1C was 6.8 (10/07/2023). Pt is followed by Lon Garcia for Type 2 Diabetes - last seen on 10/15/2023. Area Deprivation Index (MARTHA) 08/10/2021 07/26/2022 MARTHA Score National Score 48 48 Patient Health Questionnaire (PHQ-9) 01/16/2017 08/10/2021 10/15/2023 PHQ-9 PHQ-2 Score 6 0 0 PHQ-9 Score 14 (0-4) minimal depression, (5-9) mild depression, (10-14) moderate depression, (15-19) moderately severe depression, (20-27) severe depression Bone Density Risk Screen Destiney Ocampo is at risk for bone loss and has not had a bone densitometry scan in the last 2 years (date of last scan: None on file). Recommend a bone densitometry scan and if indicated on the bone density results, a consult to a bone health specialist (Rheumatology, Endocrinology, or Women's Health) for bone assessment. Risk Factors: Use of Proton Pump Inhibitors Prednisone or use of systemic steroids Additional Risk Factors Obstructive Sleep Apnea (RAJI) Malnutrition: No Malnutrition Screening Tool (MST) score on file- please complete the MST screening tool (click here to open) and refresh the note. ACTIVE PROBLEM LIST Pure Hypercholesterolemia Diverticulosis of Colon (Without Mention of Hemorrhage) PAIN HIP JOINT HIATAL HERNIA ESOPHAGITIS REFLUX Acute Gastritis Without Mention of Hemorrhage Benign Neoplasm of Colon Hypertension Diabetes Mellitus Type 2, Controlled, Without Complications (Hcc) Neck Pain Cervical Radiculopathy (more content not included)...[facility]10-25-2024 History of Present illness Narrative* Breonna Polk PA-C - 12/12/2023 7:34 AM EDT Images from the original note were not included. CONSULT ORTHOPAEDIC: HIP PRIMARY CARE PHYSICIAN: Keren Arce MD REFERRING PROVIDER: No referring provider defined for this encounter. ASSESSMENT & PLAN Destiney is a 73-year-old male who presents to the office today for bilateral hip pain right greater than left. He states that the right hip is a 9 out of 10 and the left hip is a 4 out of 10 in severity. He states that he did have a cortisone injection into the right hip approximately 10 years ago which did not provide much relief. Denies using any current medications for pain, physical therapy, or prior surgeries to the hips. Patient does not smoke. Denies any history of blood clots or use of blood thinners. Patient has used meloxicam in the past which seems to provide some benefit in pain. We discussed various treatment options including anti-inflammatories, physical therapy, repeat intra-articular cortisone injection and ultimately surgical intervention with total hip arthroplasty. Due to the patient's joint space on x- ray and minimal conservative measures thus far, we will provide him with a prescription for meloxicam 15 mg to be taken daily. We did discuss the possibility of intra-articular cortisone injection should he require more aggressive therapy. We did discuss total hiparthroplasty as this would be the final step in taking care of his hip arthritis. Patient was provided with contact information for myself and Dr. Nakul Maddox should he choose to pursue surgical intervention. Impression: Bilateral Hip Moderate Degenerative Osteoarthritis, Primary Diagnoses: (M16.0) Primary osteoarthritis of both hips (primary encounter diagnosis) After discussion with Destiney Ocampo, continued non-operative management of NSAIDS was chosen. The patient currently has had six months of unsuccessful non- operative treatment as outlined in the HPI below and progressive symptoms. Progressive symptoms include: Pain worsened by weight bearing Pain effecting living situation Pain limiting ability to stay fit and healthy Unable to ambulate 2 blocks without significant pain and dysfunction. The patient has been ordered: Office Visit on 12/10/23 meloxicam (MOBIC) 15 mg tablet No orders placed today. CONSULTS: Patient does not require consults for optimization at this time. Total Joint Athroplasty - Risk Calculator Risk Factors for Total Knee Arthroplasty (TKA) Major Risk Factors Obesity Unknown Risk High: BMI > 40 Moderate: BMI 30-40 Normal: BMI < 30 Diabetes Moderate Risk High: A1C > 8 Moderate: A1C 7-8 Normal: A1C < 7 Hx of DVT / PE normal High: dx of DVT / PE Normal: no dx of DVT / PE Smoking normal High: Current smoker Normal: Non smoker Narcotics Use normal High:NarxCare >=300 Moderate: 100-299 Normal: 0-99 Depression normal High: PHQ-9 >14 Moderate: PHQ-9 5-14 Normal: PHQ-9 < 5 Area Deprivation Index (MARTHA) Unknown Risk High: MARTHA Score > 75 Moderate: MARTHA 50-75 Normal: MARTHA < 50 Obesity: height and/or weight are out of date (There is no height and/or weight reading in the [id number] days, so the below BMI readings may be inaccurate) BMI Readings from Last 3 Encounters: 10/15/23 : 33.25 kg/m 05/07/23 : (P) 33.67 kg/m 04/16/23 : (P) 33.67 kg/m Diabetes: Well controlled - Destiney has been diagnosed with Type 2 Diabetes. His last Hemoglobin A1Cwas 6.8 (10/07/2023). Pt is followed by Lon Garcia for Type 2 Diabetes - last seen on 10/15/2023. Area Deprivation Index (MARTHA) 08/10/2021 07/26/2022 MARTHA Score National Score 48 48 Patient Health Questionnaire (PHQ-9) 01/16/2017 08/10/2021 10/15/2023 PHQ-9 PHQ-2 Score 6 0 0 PHQ-9 Score 14 (0-4) minimal depression, (5-9) mild depression, (10-14) moderate depression, (15-19) moderately severe depression, (20-27) severe depression Bone Density Risk Screen Destiney Ocampo is at risk for bone loss and has not had a bone densitometry scan in the last 2 years (date of last scan: None on file). Recommend a bone densitometry scan and if indicated on the bone density results, a consult to a bone health specialist (Rheumatology, Endocrinology, or Women's Health) for bone assessment. Risk Factors: Use of Proton Pump Inhibitors Prednisone or use of systemic steroids Additional Risk Factors Obstructive Sleep Apnea (RAJI) Malnutrition: No Malnutrition Screening Tool (MST) score on file- please complete the MST screeningtool (click here to open) and refresh the note. ACTIVE PROBLEM LIST Pure Hypercholesterolemia Diverticulosis of Colon (Without Mention of Hemorrhage) PAIN HIP JOINT HIATAL HERNIA ESOPHAGITIS REFLUX Acute Gastritis Without Mention of Hemorrhage Benign Neoplasm of Colon Hypertension Diabetes Mellitus Type 2, Controlled, Without Complications (Hcc) Neck Pain Cervical Radiculopathy Midline Thoracic Back Pain Numbness and Tingling of Right Upper Extremity Numbness and Tingling in Left Upper Extremity Cervical Spondylosis Without Myelopathy Benign Non-Nodular Prostatic Hyperplasia With Lower Urinary Tract Symptoms Shoulder Arthritis Prostate Cancer (Hcc) Pulmonary Nodule/Lesion, Solitary RAJI (obstructive sleep apnea) AHI 39 Complaints of Memory Disturbance Abnormal X-Ray Chronic Fatigue Headaches Diplopia SUBJECTIVE CHIEF COMPLAINT: Hip Pain HPI: Destiney Ocampo is a 73 year old patient . 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 The problem began limiting activities 3+ years ago. Destiney reports a current pain level of 9 (Hip-Right). FALL RISK: Destiney is not currently at risk for falls. PROMIS Physical Function Score No data to display FUNCTIONAL STATUS: Walk indoors, such as around the house (1.75 METs) Do light work around the house, such as dusting or washing dishes (2.70 METs) Take care of self, that is eating, dressing, bathing, using the toilet (2.75 METs) Walk a block or two on level ground (2.75 METs) Do moderate work around the house such as vacuuming, sweeping floors, or carrying in groceries (3.50 METs) Do yardwork, such as raking leaves, weeding,or pushing a power mower (4.50 METs) Climb a flight of stairs or walk up a hill (5.50 METs) Participate in moderate recreational activities, such as golf, bowling, dancing, doubles tennis, orthrowing a baseball or football (6.00 METs) PREVIOUS TREATMENTS: Current Anti-Inflammatory medications: meloxicam Past anti-inflammatory medications (not necessarily for this reason for visit): meloxicam, naproxen, prednisone Attempted Weight Loss Medical: RX NSAIDS for 3 Months or Greater (meloxicam (Mobic) and ibuprofen (Motrin)), Steroid Injections Right Hip REVIEW OF SYSTEMS: PAIN ASSESSMENT: See HPI. MUSCULOSKELETAL: See HPI. No data to display PAST MEDICAL HISTORY Diagnosis Date Abdominal pain, other specified site Benign neoplasm of colon Chronic fatigue 05/22/2023 Fatigue and malaise noted Diaphragmatic hernia without mention of obstruction or gangrene Diplopia 2018 Started before 2018; had workup in 2018 due to more frequent episodes of diplopia Diverticulosis of colon (without mention of hemorrhage) Diverticulosis Dysthymic disorder Depression (non-psychotic) Headaches 05/22/2023 Chronic for years RAJI (obstructive sleep apnea) Pure hypercholesterolemia PAST SURGICAL HISTORY Procedure Laterality Date COLONOSCOPY FLX DX W/COLLJ SPEC WHEN PFRMD Colonoscopy COLONOSCOPY FLX DX W/COLLJ SPEC WHEN PFRMD 01/18/2011 Colonoscopy COLSC FLX W/RMVL OF TUMOR POLYP LESION SNARE TQ 04/24/07 Diverticulosis and prox. sigmoid polyp EGD TRANSORAL BIOPSY SINGLE/MULTIPLE 04/24/07 HH, esophagitis,gastritis ESOPHAGOGASTRODUODENOSCOPY TRANSORAL DIAGNOSTIC 10/30/2012 EGD HEART CATHETERIZATION 2013 LITHOTRIPSY XTRCORP SHOCK WAVE Lithotripsy FAMILY HISTORY Problem Relation Age of Onset Psychiatry Father suicide age 44 Diabetes Mother COPD Mother Social History Tobacco Use Smoking status: Former Current packs/day: 0.00 Average packs/day: 1 pack/day for 30.0 years (30.0 ttl pk-yrs) Types: Cigarettes Start date: 12/18/1974 Quit date: 12/18/2004 Years since quittin.9 Smokeless tobacco: Former Tobacco comments: less than 1/2 pack daily Substance Use Topics Alcohol use: Yes Comment: rarely beer Drug use: No ALLERGIES: Lisinopril MEDICATIONS: ketoconazole (NIZORAL) 2 % cream Apply 1 application to affected area two times a day. Continue for1 week after rash resolves. metFORMIN ER (GLUCOPHAGE XR) 500 mg 24 hr tablet Take 1 tablet by mouth daily with breakfast. metoprolol succinate ER (TOPROL XL) 25 mg 24 hr tablet Take 1 tablet by mouth once daily. omeprazole (PRILOSEC) 20 mg capsule Take 1 capsule by mouth two times a day. traZODone (DESYREL) 50 mg tablet Take 0.5-1 tablets by mouth at bedtime as needed (sedation). nystatin (MYCOSTATIN) powder Apply 1 application to affected area four times daily. Continue to usefor a week after rash resolves. Use as needed for recurrences ENTRESTO 49-51 mg tablet Take 1 tablet by mouth two times a day. (getting from patient assistance) famotidine (PEPCID) 20 mg tablet Take 1 tablet by mouth at bedtime as needed. Magnesium 250 mg tab Take 1 tablet by mouth two times a day. Cholecalciferol, Vitamin D3, 50 mcg (2,000 unit) cap Take 1 capsule by mouth once daily. atorvastatin (LIPITOR) 40 mg tablet TAKE 1 TABLET BY MOUTH EVERY DAY FOR 90 DAYS COMPOUNDED PRESCRIPTION Generic Glucometer - I each 50 strips and lancets. Re: Diabetes mellitus controlled with hypoglycemia. Lancets lancets Test blood sugar(s) 1-2 times daily or as directed. Dx: Type 2 DM - Controlled E11.9 Insulin: No blood sugar diagnostic (BLOOD GLUCOSE TEST) test strip Test blood sugar(s) 1-2 times daily or as directed. Dx: Type 2 DM - Controlled E11.9 Insulin: No Blood-Glucose Meter monitoring kit Glucose Meter of Choice (per insurance coverage)- Kit - Dx: Type2 DM - Controlled E11.9, Test 1-2 times a day or as directed. No insulin DOCUSATE CALCIUM (STOOL SOFTENER ORAL) Take by mouth as needed. meloxicam (MOBIC) 15 mg tablet Take 1 tablet by mouth once daily. venlafaxine ER (EFFEXOR XR) 75 mg 24 hr capsule Take 1 capsule by mouth daily at bedtime. (Patient not taking: Reported on 12/10/2023) aspirin 81 mg chewable tablet Take 81 mg by mouth. OBJECTIVE PHYSICAL EXAM There were no vitals taken for this visit. All other systems deferred. GENERAL: Appears healthy, well-nourished, no deformities. HABITUS: Obese GAIT: Antalgic to the right HIP EXAM: Left: ROM: Extension: full extension Flexion: 100 degrees Internal Rotation: 15 degrees External Rotation: 35 degrees Abduction: 25 degrees Adduction: 20 degrees Strength: Abduction 5/5 and Flexion 5/5 Palpation: No tenderness Log roll: non-painful. Straight leg raise: Negative Neurovascular Status: Sensation Intact, Moves foot and ankle up & down, and 2+ dorsalis pedis Right: ROM: Extension: full extension Flexion: 100 degrees Internal Rotation: 15 degrees External Rotation: 30 degrees Abduction: 25 degrees Adduction: 15 degrees Strength: Abduction 5/5 and Flexion 5/5 Palpation: No tenderness Log roll: painful. Straight leg raise: Positive, reproducing hip symptoms Neurovascular Status: Sensation Intact, Moves foot and ankle up & down, and 2+ dorsalis pedis DATA: Diagnostic tests reviewed for today's visit: Right hip X-Ray: Moderate degenerative changes Left hip X-Ray: Mild degenerative changes The following conditions were addressed during the office visit today: N/A I spent a total of 35 minutes on the date of the service which included preparing to see the patient, [id number] patient care, completing clinical documentation, obtaining and/or reviewing separately obtained history, performing a medically appropriate examination, counseling and educating the pat ient/family/caregiver, ordering medications, tests, or procedures, communicating with other HCPs (not separately reported), independently interpreting results (not separately reported), communicatingresults to the patient/family/caregiver, and care coordination (not separately reported). SIGNATURE: Breonna Polk PA-C PATIENT NAME: Destiney Ocampo DATE: December 12, 2023 TIME: 7:34 AM documented in this [facility]10-23-2024 History of Present illness Narrative* Jovi Chacko Tech - 12/10/2023 3:30 PM EDT Radiology Service Progress Note PATIENT NAME: Destiney Ocampo DATE OF SERVICE: December 10, 2023 TIME: 2:46 PM PATIENT IDENTITY VERIFICATION COMPLETED USING TWO (2) IDENTIFIERS: Name and Date of confirmedby patient verbally. FALL SCREENING: Has the patient had 2 falls in the last year or 1 fall with injury or currently using an Ambulatory Assistive Device (Walker, Cane, Wheelchair, Crutches, etc.)? No PATIENT GENDER DATA: Male PATIENT RELEVANT IMPLANT DATA REVIEWED: Not Applicable PATIENT PRESENTS WITH AN IMPLANTABLE OR ATTACHED CORPORATE QUALITY MANAGER: No RADIOLOGY DEPARTMENT: General X-ray: Exam(s) Completed: Pelvis X-Ray: Pelvis with Hip Bilateral andWt. Bearing Lower Extremity X-Ray(s): Leg Length PERIPHERAL IV DATA: Not applicable SIGNED BY: Kevin Brantley December 10, 2023 2:46 PM [facility] NoteHNO ID: [id number] Author: JOVI CHACKO Tech Service: ? Author Type: Cipher Expert Type: Progress Notes Filed: 12/10/2023 14:46 Note Text: Radiology Service Progress Note PATIENT NAME: Destiney Ocampo DATE OF SERVICE: December 10, 2023 TIME: 2:46 PM PATIENT IDENTITY VERIFICATION COMPLETED USING TWO (2) IDENTIFIERS: Name and Date of confirmed by patient verbally. FALL SCREENING: Has the patient had 2 falls in the last year or 1 fall with injury or currently using an Ambulatory Assistive Device (Walker, Cane, Wheelchair, Crutches, etc.)? No PATIENT GENDER DATA: Male PATIENT RELEVANT IMPLANT DATA REVIEWED: Not Applicable PATIENT PRESENTS WITH AN IMPLANTABLE OR ATTACHED CORPORATE QUALITY MANAGER: No RADIOLOGY DEPARTMENT: General X-ray: Exam(s) Completed: Pelvis X-Ray: Pelvis with Hip Bilateral and Wt. Bearing Lower Extremity X-Ray(s): Leg Length PERIPHERAL IV DATA: Not applicable SIGNED BY: Kevin Brantley December 10, 2023 2:46 PMRiverview Health [id number] Telephone encounter Note* Telephone Encounter - Liliane Linares LPN - 12/05/2023 11:39 AM EDT Spoke to patient, they will arrive early for XR's prior to his appointment with TOREY Williamson. [facility]10-18-[facility]24 Miscellaneous Notes* Telephone Encounter - Liliane Linares LPN - 12/05/2023 11:39 AM EDT Spoke to patient, they will arrive early for XR's prior to his appointment with TOREY Williamson. [facility] Telephone encounter Note * Telephone Encounter - Hannah Cotton RN - 12/04/2023 8:54 AM EDT Spouse returns call and requests referral be sent to [facility]. Faxed per request to [phone]. Spouse reports if that doesn't work then they will look into [facility]. Hannah Cotton RN [facility]10-17-[facility] Miscellaneous Notes* Telephone Encounter - Hannah Cotton RN - 12/04/2023 8:54 AM EDT Spouse returns call and requests referral be sent to [facility]. Faxed per request to [phone]. Spouse reports if that doesn't work then they will look into [facility]. Hannah Cotton RN * Telephone Encounter - Argelia Hill LPN - 12/03/2023 4:08 PM EDT PATIENT notified and will speak with about keeping Neurology appointment with Trenton Motley. Patient may call back to get an appointment with [facility]. We will await call back. Argelia Hill LPN * Telephone Encounter - Lon Garcia APRN.LEISURE TRAVEL AGENT - 12/03/2023 2:09 PM EDT It looks like the CT was for double vision and headaches. I placed a neuro referral for this. Please see if they want to stick with [facility] where CT was done or with [facility] for the neurology referral. * Telephone Encounter - Argelia Hill LPN - 12/03/2023 1:[address] received and has been scanned into [employer]. Please review Argelia Hill LPN * Telephone Encounter - Leena Wright RN - 12/02/2023 3:24 PM EDT Pts called and is notified of providers message and instructions. She voices understanding. She reports she called Dr Enriquez's office yesterday and they were going to fax over the CT to Dr Arce. She gave the phone # for Dr Enriquez [phone]. Leena Wright, RN * Telephone Encounter - Keren Arce MD - 12/01/2023 7:31 PM EDT Clarify reason/diagnosis for referral to neurology. Cannot find records for Dr. Enriquez evaluation, or MRI results. No mention of neurologic concern in Lon's progress note from September. * Telephone Encounter - Margot Carter LPN - 12/01/2023 12:31 PM EDT Patient Pat calling asking for referral for Neurology. She said he saw Dr Enriquez in [place] and had MRI Brain done, was told he did not need surgery needs to see Neurology. Asked to have copyof results faxed to PCP office, so PCP has results. Pending consult, needs diagnosis. Please advise [facility] Telephone encounter Note * Telephone Encounter - Argelia Hill LPN - 12/03/2023 4:08 PM EDT PATIENT notified and will speak with about keeping Neurology appointment with Trenton Motley. Patient may call back to get an appointment with [facility]. We will await call back. Argelia Hill LPN [facility]10-16-[facility] Telephone encounter Note* Telephone Encounter - Lon Garcia APRN.JOHN - 12/03/2023 2:09 PM EDT It looks like the CT was for double vision and headaches. I placed a neuro referral for this. Please see if they want to stick with [facility] where CT was done or with [facility] for the neurology referral. [facility] Telephone encounter Note* Telephone Encounter - Argelia Hill LPN - 12/03/2023 1:[address] received and has been scanned into [employer]. Please review Argelia Hill LPN [facility]10-15-20[facility] Telephone encounter Note* Telephone Encounter - Leena Wright RN - 12/02/2023 3:24 PM EDT Pts called and is notified of providers message and instructions. She voices understanding. She reports she called Dr Enriquez's office yesterday and they were going to fax over the CT to Dr Arce. She gave the phone # for Dr Enriquez [phone]. Leena Wright RN [facility]10-14-2024 Telephone encounter Note* Telephone Encounter - Keren Arce MD - 12/01/2023 7:31 PM EDT Clarify reason/diagnosis for referral to neurology. Cannot find records for Dr. Enriquez evaluation, or MRI results. No mention of neurologic concern in Lon's progress note from September. [facility]10-[facility] Telephone encounter Note* Telephone Encounter - Margot Carter LPN - 12/01/2023 12:31 PM EDT Patient Pat calling asking for referral for Neurology. She said he saw Dr Enriquez in [place] and had MRI Brain done, was told he did not need surgery needs to see Neurology. Asked to have copyof results faxed to PCP office, so PCP has results. Pending consult, needs diagnosis. Please advise [facility]08-28-[facility] History of Present illness Narrative* Lon Garcia APRN.LEISURE TRAVEL AGENT - 10/15/2023 8:41 AM EDT SUBJECTIVE Destiney Ocampo is a 73 year old male here today for a check up on his medical problems. Chief Complaint Patient presents with: F/U 6 months Chest Pain: in center of chest describes it as palpitations HPI Destiney Ocampo is a 73 year old male. He is an established patient of Keren Arce MD, here todayfor a routine 6 month follow up. Accompanied by his . History of controlled DM, GERD, CAD, HTN.Recently he noticed he has a few episodes a week of feeling low blood sugars. Will drop at times tothe 80's-70's. Does not feel well when this happens. Also noticing some palpitations in the center of the chest. Had a 3 day monitor done with cardiology but not sure of the results. Not so much a chest pain, feels a deeper thump/palpitation sensation. Has a known blockage, x2 prior heart caths. Sees [facility] for cardiology. GERD is controlled. His medications were reviewed today and his list is now up to date. Medications Current Outpatient Medications Medication Sig traZODone (DESYREL) 50 mg tablet Take 0.5-1 tablets by mouth at bedtime as needed (sedation). nystatin (MYCOSTATIN) powder Apply 1 application to affected area four times daily. Continue to usefor a week after rash resolves. Use as needed for recurrences ENTRESTO 49-51 mg tablet Take 1 tablet by mouth two times a day. (getting from patient assistance) famotidine (PEPCID) 20 mg tablet Take 1 tablet by mouth at bedtime as needed. venlafaxine ER (EFFEXOR XR) 75 mg 24 hr capsule Take 1 capsule by mouth daily at bedtime. Magnesium 250 mg tab Take 1 tablet by mouth two times a day. Cholecalciferol, Vitamin D3, 50 mcg (2,000 unit) cap Take 1 capsule by mouth once daily. atorvastatin (LIPITOR) 40 mg tablet TAKE 1 TABLET BY MOUTH EVERY DAY FOR 90 DAYS aspirin 81 mg chewable tablet Take 81 mg by mouth. DOCUSATE CALCIUM (STOOL SOFTENER ORAL) Take by mouth as needed. ketoconazole (NIZORAL) 2 % cream Apply 1 application to affected area two times a day. Continue for1 week after rash resolves. metFORMIN ER (GLUCOPHAGE XR) 500 mg 24 hr tablet Take 1 tablet by mouth daily with breakfast. metoprolol succinate ER (TOPROL XL) 25 mg 24 hr tablet Take 1 tablet by mouth once daily. omeprazole (PRILOSEC) 20 mg capsule Take 1 capsule by mouth two times a day. COMPOUNDED PRESCRIPTION Generic Glucometer - I each 50 strips and lancets. Re: Diabetes mellitus controlled with hypoglycemia. Lancets lancets Test blood sugar(s) 1-2 times daily or as directed. Dx: Type 2 DM - Controlled E11.9 Insulin: No blood sugar diagnostic (BLOOD GLUCOSE TEST) test strip Test blood sugar(s) 1-2 times daily or as directed. Dx: Type 2 DM - Controlled E11.9 Insulin: No Blood-Glucose Meter monitoring kit Glucose Meter of Choice (per insurance coverage)- Kit - Dx: Type2 DM - Controlled E11.9, Test 1-2 times a day or as directed. No insulin No current facility-administered medications for this visit. ALLERGIES Allergen Reactions Lisinopril Cough ACTIVE PROBLEM LIST Chronic Fatigue - 05/22/2023 Comment: Fatigue and malaise noted Headaches - 05/22/2023 Comment: Chronic for years Diplopia - 05/22/2023 Comment: Intermittent for years, then April 2017 complained was more frequent.Now is daily.No abnormalities were found on MRI or eye exams Abnormal X-Ray - 11/20/2021 Complaints of Memory Disturbance - 06/18/2017 RAJI (obstructive sleep apnea) AHI 39 - 06/15/2017 Prostate Cancer (Hcc) - 01/16/2017 Comment: He had surgery in june 2016, Dr. Youssef. Pulmonary Nodule/Lesion, Solitary - 01/16/2017 Shoulder Arthritis - 10/05/2015 Comment: Was very active during his working time. Has been having right shoulder, hip and knee pain. He completely his PT a year ago or may be longer. Benign Non-Nodular Prostatic Hyperplasia With Lower Urinary Tract Symptoms - 11/21/2014 Midline Thoracic Back Pain - 09/01/2014 Numbness and Tingling of Right Upper Extremity - 09/01/2014 Numbness and Tingling in Left Upper Extremity - 09/01/2014 Cervical Spondylosis Without Myelopathy - 09/01/2014 Neck Pain - 08/16/2014 Cervical Radiculopathy - 08/16/2014 Diabetes Mellitus Type 2, Controlled, Without Complications (Hcc) - 08/15/2014 Hypertension - 07/24/2011 HIATAL HERNIA - 04/24/2007 ESOPHAGITIS REFLUX - 04/24/2007 Acute Gastritis Without Mention of Hemorrhage - 04/24/2007 Benign Neoplasm of Colon - 04/24/2007 PAIN HIP JOINT - 01/17/2006 Pure Hypercholesterolemia Diverticulosis of Colon (Without Mention of Hemorrhage) Comment: Diverticulosis Social History Tobacco Use Smoking status: Former Current packs/day: 0.00 Average packs/day: 1 pack/day for 30.0 years (30.0 ttl pk-yrs) Types: Cigarettes Start date: 12/18/1974 Quit date: 12/18/2004 Years since quittin.8 Smokeless tobacco: Former Tobacco comments: less than 1/2 pack daily Substance Use Topics Alcohol use: Yes Comment: rarely beer Drug use: No Review of Systems Constitutional: Negative. Respiratory: Negative. Cardiovascular: Positive for palpitations. Negative for chest pain and leg swelling. OBJECTIVE BP 106/68 Pulse 76 Wt 212 lb 4.9 oz (96.3kg) SpO2 98% Physical Exam Vitals and nursing note reviewed. Constitutional: General: He is awake. He is not in acute distress. Appearance: Normal appearance. He is well-developed and well-groomed. He is not ill-appearing, toxic-appearing or diaphoretic. HENT: Head: Normocephalic. Right Ear: External ear normal. Left Ear: External ear normal. Nose: Nose normal. Eyes: General: Vision grossly intact. Conjunctiva/sclera: Conjunctivae normal. Pupils: Pupils are equal, round, and reactive to light. Neck: Vascular: No JVD. Trachea: Trachea normal. Cardiovascular: Rate and Rhythm: Normal rate and regular rhythm. Pulses: Normal pulses. Heart sounds: Normal heart sounds. No murmur heard. Pulmonary: Effort: Pulmonary effort is normal. No accessory muscle usage, prolonged expiration or respiratory distress. Breath sounds: Normal breath sounds. Musculoskeletal: Cervical back: Neck supple. Skin: General: Skin is warm and dry. Capillary Refill: Capillary refill takes less than 2 seconds. Neurological: General: No focal deficit present. Mental Status: He is alert and oriented to person, place, and time. Mental status is at baseline. Psychiatric: Attention and Perception: Attention and perception normal. Mood and Affect: Mood and affect normal. Speech: Speech normal. Behavior: Behavior normal. Behavior is cooperative. Thought Content: Thought content normal. Cognition and Memory: Cognition and memory normal. Judgment: Judgment normal. ASSESSMENT/PLAN: 1. Controlled type 2 diabetes mellitus with hypoglycemia, without long-term current use of insulin ([facility]) - ICD9: 250.80, 251.2, ICD10: E11.649 (primary diagnosis) - Controlled - Decrease metformin ER - Counseled on healthy diet and regular exercise - Discussed need for and benefit of weight loss. BMI 33.25 kg/(m^2) - METFORMIN ER 500 MG TABLET,EXTENDED RELEASE 24 HR - HEMOGLOBIN A1C - LIPID PANEL BASIC 2. Coronary artery 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 angina pectoris- ICD9: 414.01, ICD10: I25.10 Following with cardiology, will get results of recent monitor testing to review. 3. Primary hypertension - ICD9: 401.9, ICD10: I10 - Controlled - Continue current medications - Recommend home blood pressure monitoring, to bring results to next visit - Encouraged sodium restriction, DASH or Mediterranean diet - Recommend regular aerobic exercise 4. Palpitation - ICD9: 785.1, ICD10: R00.2 See #2 5. Gastroesophageal reflux disease without esophagitis - ICD9: 530.81, ICD10: K21.9 - Discussed lifestyle modifications including losing weight, limiting caffeine, no meals three hours before sleep, and head of bed elevation - Controlled. - OMEPRAZOLE 20 MG CAPSULE,DELAYED RELEASE 6. Encounter for screening examination for other mental health and behavioral disorders - ICD9: V79.8, ICD10: Z13.39 - ANXIETY SCREENING 7. Screening for depression - ICD9: V79.0, ICD10: Z13.31 - DEPRESSION SCREENING 8. Encounter for therapeutic drug monitoring - ICD9: V58.83, ICD10: Z51.81 - COMPLETE BLOOD COUNT AND DIFFERENTIAL - COMPREHENSIVE METABOLIC PANEL - MAGNESIUM Portions of this note have been entered by ancillary staff. I have reviewed and when necessary edited, so that they are an adequate record of my encounter with this patient Please note that parts of this document were created using voice recognition software and therefore may contain grammatical errors. Patient verbalizes understanding of instructions from today's visit and in agreement with treatmentplan. Questions answered. Agrees to call the office if questions, concerns of issues with acute symptoms not improving or if they worsen. See diagnoses and orders for additional plan(s). Allergies and medications were reviewed, list was updated, and refills given if needed. Past medical, surgical, social, and family history reviewed and updated as appropriate. Encouraged proper diet & exercise as well as compliance with taking medications. Age- appropriate health preventative measures were discussed. Return if symptoms worsen or fail to improve, for Keep next scheduled appointment.. Lon Garcia APRN-JOHN documented [facility] NoteHNO ID: [id number] Author: LON GARCIA APRN.CNP Service: ? Author Type: Nurse Practitioner Type: Progress Notes Filed: 10/15/2023 09:50 Note Text: SUBJECTIVE Destiney Ocampo is a 73 year old male here today for a check up on his medical problems. Chief Complaint Patient presents with: F/U 6 months Chest Pain: in center of chest describes it as palpitations HPI Destiney Ocampo is a 73 year old male. He is an established patient of Keren Arce MD, here today for a routine 6 month follow up. Accompanied by his . History of controlled DM, GERD, CAD, HTN. Recently he noticed he has a few episodes a week of feeling low blood sugars. Will drop at times to the 80's-70's. Does not feel well when this happens. Also noticing some palpitations in the center of the chest. Had a 3 day monitor done with cardiology but not sure of the results. Not so much a chest pain, feels a deeper thump/palpitation sensation. Has a known blockage, x2 prior heart caths. Sees [facility] for cardiology. GERD is controlled. His medications were reviewed today and his list is now up to date. Medications Current Outpatient Medications Medication Sig traZODone (DESYREL) 50 mg tablet Take 0.5-1 tablets by mouth at bedtime as needed (sedation). nystatin (MYCOSTATIN) powder Apply 1 application to affected area four times daily. Continue to use for a week after rash resolves. Use as needed for recurrences ENTRESTO 49-51 mg tablet Take 1 tablet by mouth two times a day. (getting from patient assistance) famotidine (PEPCID) 20 mg tablet Take 1 tablet by mouth at bedtime as needed. venlafaxine ER (EFFEXOR XR) 75 mg 24 hr capsule Take 1 capsule by mouth daily at bedtime. Magnesium 250 mg tab Take 1 tablet by mouth two times a day. Cholecalciferol, Vitamin D3, 50 mcg (2,000 unit) cap Take 1 capsule by mouth once daily. atorvastatin (LIPITOR) 40 mg tablet TAKE 1 TABLET BY MOUTH EVERY DAY FOR 90 DAYS aspirin 81 mg chewable tablet Take 81 mg by mouth. DOCUSATE CALCIUM (STOOL SOFTENER ORAL) Take by mouth as needed. ketoconazole (NIZORAL) 2 % cream Apply 1 application to affected area two times a day. Continue for 1 week after rash resolves. metFORMIN ER (GLUCOPHAGE XR) 500 mg 24 hr tablet Take 1 tablet by mouth daily with breakfast. metoprolol succinate ER (TOPROL XL) 25 mg 24 hr tablet Take 1 tablet by mouth once daily. omeprazole (PRILOSEC) 20 mg capsule Take 1 capsule by mouth two times a day. COMPOUNDED PRESCRIPTION Generic Glucometer - I each 50 strips and lancets. Re: Diabetes mellitus controlled with hypoglycemia. Lancets lancets Test blood sugar(s) 1-2 times daily or as directed. Dx: Type 2 DM - Controlled E11.9 Insulin: No blood sugar diagnostic (BLOOD GLUCOSE TEST) test strip Test blood sugar(s) 1-2 times daily or as directed. Dx: Type 2 DM - Controlled E11.9 Insulin: No Blood-Glucose Meter monitoring kit Glucose Meter of Choice (per insurance coverage)- Kit - Dx: Type 2 DM - Controlled E11.9, Test 1-2 times a day or as directed. No insulin No current facility-administered medications for this visit. ALLERGIES Allergen Reactions Lisinopril Cough ACTIVE PROBLEM LIST Chronic Fatigue - 05/22/2023 Comment: Fatigue and malaise noted Headaches - 05/22/2023 Comment: Chronic for years Diplopia - 05/22/2023 Comment: Intermittent for years, then April 2017 complained was more frequent.Now is daily.No abnormalities were found on MRI or eye exams Abnormal X-Ray - 11/20/2021 Complaints of Memory Disturbance - 06/18/2017 RAJI (obstructive sleep apnea) AHI 39 - 06/15/2017 Prostate Cancer (Hcc) - 01/16/2017 Comment: He had surgery in june 2016, Dr. Youssef. Pulmonary Nodule/Lesion, Solitary - 01/16/2017 Shoulder Arthritis - 10/05/2015 Comment: Was very active during his working time. Has been having right shoulder, hip and knee pain. He completely his PT a year ago or may be longer. Benign Non-Nodular Prostatic Hyperplasia With Lower Urinary Tract Symptoms - 11/21/2014 Midline Thoracic Back Pain - 09/01/2014 Numbness and Tingling of Right Upper Extremity - 09/01/2014 Numbness and Tingling in Left Upper Extremity - 09/01/2014 Cervical Spondylosis Without Myelopathy - 09/01/2014 Neck Pain - 08/16/2014 Cervical Radiculopathy - 08/16/2014 Diabetes Mellitus Type 2, Controlled, Without Complications ([facility]) - 08/15/2014 Hypertension - 07/24/2011 HIATAL HERNIA - 04/24/2007 ESOPHAGITIS REFLUX - 04/24/2007 Acute Gastritis Without Mention of Hemorrhage - 04/24/2007 Benign Neoplasm of Colon - 04/24/2007 PAIN HIP JOINT - 01/17/2006 Pure Hypercholesterolemia Diverticulosis of Colon (Without Mention of Hemorrhage) Comment: Diverticulosis Social History Tobacco Use Smoking status: Former Current packs/day: 0.00 Average packs/day: 1 pack/day for 30.0 years (30.0 ttl pk-yrs) Types: Cigarettes Start date: 12/18/1974 Quit date: 12/18/2004 Years (more content not included)...[facility]08-15-2024 Telephone encounter Note* Telephone Encounter - Veena Albert LPN - 10/02/2023 8:56 AM EDT Pt's calling checking to see if pt has labs ordered. Advised pt does have fasting lab orders. Veena Albert LPN [facility]08-15-2024 Miscellaneous Notes* Telephone Encounter - Veena Albert LPN - 10/02/2023 8:56 AM EDT Pt's calling checking to see if pt has labs ordered. Advised pt does have fasting lab orders. Veena Albert LPN documented in this encounter[facility]07-[facility] Telephone encounter Note * Telephone Encounter - Sasha Kamara RN - 09/01/2023 8:10 AM EDT The patient has been identified by name and date of : Yes Caregiver verified no other encounters exist for this prescription request: Yes Caregiver confirmed with patient/requestor that no other refills are due, in the near future, with this provider at this time: Yes The last office visit in the department: 05/07/2023 Does the patient have a future office visit with this provider/department: Yes 10/15/2023 Requested Prescriptions Pending Prescriptions Disp Refills ketoconazole (NIZORAL) 2 % cream 60 g 0 Sig: Apply 1 application to affected area two times a day. Continue for 1 week after rash resolves. Sasha Kamara RN September 01, 2023 8:10 AM [facility]07-15-2024 Miscellaneous Notes* Telephone Encounter - Sasha Kamara RN - 09/01/2023 8:10 AM EDT The patient has been identified by name and date of : Yes Caregiver verified no other encounters exist for this prescription request: Yes Caregiver confirmed with patient/requestor that no other refills are due, in the near future, with this provider at this time: Yes The last office visit in the department: 05/07/2023 Does the patient have a future office visit with this provider/department: Yes 10/15/2023 Requested Prescriptions Pending Prescriptions Disp Refills ketoconazole (NIZORAL) 2 % cream 60 g 0 Sig: Apply 1 application to affected area two times a day. Continue for 1 week after rash resolves. Sasha Kamara RN September 01, 2023 8:10 AM documented in this encounter[facility]05-20-2024 Telephone encounter Note * Telephone Encounter - Keren Arce MD - 07/07/2023 8:36 PM EDT Noted Follow up as needed if fatigue not improving. [facility]05-20-2024 Miscellaneous Notes* Telephone Encounter - Keren Arce MD - 07/07/2023 8:36 PM EDT Noted Follow up as needed if fatigue not improving. * Telephone Encounter - Desiree Orlando LPN - 07/07/2023 10:24 AM EDT PATIENT NOTIFIED OF SAME. He did stop the Metformin about 2 days ago but hasn't noticed any difference in the fatigue. Did encourage patient to continue to check daily BS. To resume metformin if having elevated readings and no improvement in fatigue symptoms in the next week or two. * Telephone Encounter - Keren Arce MD - 07/04/2023 6:41 PM EDT Lactic acidosis not likely to be an issue unless he has problems with acute illness and dehydration(remind them the stop metformin anything not able to eat and drink adequately). Lactic acidosis could be associated with illness that cause the lactic acid to go up (like sepsis from infection) which can cause symptoms of fatigue and pain. * Telephone Encounter - Carolyn García LPN - 07/04/2023 1:27 PM EDT Patient and aware of provider recommendations. Patient to stop Metformin on 07/05/2023 and willupdate PCP within 2 weeks. Patient's asking about the lactic acid levels, if off, would cause these symptoms. Carolyn García LPN * Telephone Encounter - Keren Arce MD - 07/04/2023 1:03 PM EDT Short of breath with exertion not a typical side effect of metformin. Fatigue and joint pain not a common side effect of metformin. Last year was when metformin was switched because of complaints of fatigue, but had problems with the other med so went back to metformin and at July appointment told Lon that fatigue was improved. No mention of SOB with exertion at that July appointment. No mention of WOODRUFF at April appointment for rash. Hemoglobin A1C (%) Date Value 04/07/2023 6.7 09/26/2022 6.5 03/26/2022 7.2 08/02/2021 7.1 10/11/2020 7.5 02/11/2018 6.2 09/04/2017 6.2 05/09/2017 6.9 01/07/2017 6.0 Hemoglobin A1C (POCT) (%) Date Value 06/26/2020 7.0 02/24/2019 7.1 11/19/2018 7.4 Since sugars have been good, if he wants to hold the metformin for a couple weeks and see if symptoms improve. Let me know if sugars get high over 200s. 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 If prefers to start with us, make sooner appointment with me or Rashid or Lon. * Telephone Encounter - Leilani Mathis RN - 07/04/2023 8:43 AM EDT Patient's calls and states that patient has been having issues with fatigue and muscle/joint pain. Patient has been having issues with shortness of with exertion. Patient's states that these issues have been going on for quite some time. asking if Metformin can be causing these issues? states that patient has not been able to do anything do to not feeling well. states that Dr. Arce as seen patient for these issues previously. states that metformin was changed previously to another medication however that medication did not help control blood sugars. Please review and advise, Leilani Mathis RN documented in this [facility]05-20-2024 Telephone encounter Note * Telephone Encounter - Desiree Orlando LPN - 07/07/2023 10:24 AM EDT PATIENT NOTIFIED OF SAME. He did stop the Metformin about 2 days ago but hasn't noticed any difference in the fatigue. Did encourage patient to continue to check daily BS. To resume metformin if having elevated readings and no improvement in fatigue symptoms in the next week or two. [facility]05-17-2024 Telephone encounter Note* Telephone Encounter - Keren Arce MD - 07/04/2023 6:41 PM EDT Lactic acidosis not likely to be an issue unless he has problems with acute illness and dehydration(remind them the stop metformin anything not able to eat and drink adequately). Lactic acidosis could be associated with illness that cause the lactic acid to go up (like sepsis from infection) which can cause symptoms of fatigue and pain. [facility]05-17-2024 Telephone encounter Note* Telephone Encounter - Carolyn García LPN - 07/04/2023 1:27 PM EDT Patient and aware of provider recommendations. Patient to stop Metformin on 07/05/2023 and willupdate PCP within 2 weeks. Patient's asking about the lactic acid levels, if off, would cause these symptoms. Carolyn García LPN [facility]05-17-20[facility] Telephone encounter Note* Telephone Encounter - Keren Arce MD - 07/04/2023 1:03 PM EDT Short of breath with exertion not a typical side effect of metformin. Fatigue and joint pain not a common side effect of metformin. Last year was when metformin was switched because of complaints of fatigue, but had problems with the other med so went back to metformin and at July appointment told Lon that fatigue was improved. No mention of SOB with exertion at that July appointment. No mention of WOODRUFF at April appointment for rash. Hemoglobin A1C (%) Date Value 04/07/2023 6.7 09/26/2022 6.5 03/26/2022 7.2 08/02/2021 7.1 10/11/2020 7.5 02/11/2018 6.2 09/04/2017 6.2 05/09/2017 6.9 01/07/2017 6.0 Hemoglobin A1C (POCT) (%) Date Value 06/26/2020 7.0 02/24/2019 7.1 11/19/2018 7.4 Since sugars have been good, if he wants to hold the metformin for a couple weeks and see if symptoms improve. Let me know if sugars get high over 200s. 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 If prefers to start with us, make sooner appointment with me or Rashid or Lon. [facility]05-17-[facility] Telephone encounter Note* Telephone Encounter - Leilani Mathis RN - 07/04/2023 8:43 AM EDT Patient's calls and states that patient has been having issues with fatigue and muscle/joint pain. Patient has been having issues with shortness of with exertion. Patient's states that these issues have been going on for quite some time. asking if Metformin can be causing these issues? states that patient has not been able to do anything do to not feeling well. states that Dr. Arce as seen patient for these issues previously. states that metformin was changed previously to another medication however that medication did not help control blood sugars. Please review and advise, Leilani Mathis RN [facility]04-30-20[facility] Telephone encounter Note* Telephone Encounter - Desiree Orlando LPN - 06/17/2023 11:17 AM EDT notified of same and expressed her understanding. [facility]04-30-20[facility] Miscellaneous Notes* Telephone Encounter - Desiree Orlando LPN - 06/17/2023 11:17 AM EDT notified of same and expressed her understanding. * Telephone Encounter - Lon Garcia APRN.CNP - 06/17/2023 7:38 AM EDT Please return call and let them know that based on the labs from March if the meloxicam is needed daily for now that is okay. I would strive to decrease the dose as healing from the shoulder surgery occurs but agree that using this daily for now to help control pain is acceptable. * Telephone Encounter - Margot Carter LPN - 06/16/2023 3:56 PM EDT Patient Pat calling had shoulder surgery to repair rotator cuff recently and Dr Ramirez ([facility]) told him he could take Meloxicam 15 mg daily as needed. said has been taking the meloxicam more daily helps his joint pain. asking if that would be alright with his liver and kidneys? Last lab work was done in March. Please advise documented in this encounter[facility]04-30-2024 Telephone encounter Note * Telephone Encounter - Lon Garcia APRN.CNP - 06/17/2023 7:38 AM EDT Please return call and let them know that based on the labs from March if the meloxicam is needed daily for now that is okay. I would strive to decrease the dose as healing from the shoulder surgery occurs but agree that using this daily for now to help control pain is acceptable. [facility]04-29-20[facility] Telephone encounter Note* Telephone Encounter - Margot Carter LPN - 06/16/2023 3:56 PM EDT Patient Pat calling had shoulder surgery to repair rotator cuff recently and Dr Ramirez ([facility]) told him he could take Meloxicam 15 mg daily as needed. said has been taking the meloxicam more daily helps his joint pain. asking if that would be alright with his liver and kidneys? Last lab work was done in March. Please advise [facility]04-23-20[facility] Telephone encounter Note* Telephone Encounter - Iza Colon LPN - 06/10/2023 9:41 AM EDT Fani with [facility] calls to report pt is at their office now. Fani is requesting that OV notesfrom pcp to be faxed to: [phone]. OV notes faxed as requested. Iza Colon LPN [facility]04-23-2024 Miscellaneous Notes* Telephone Encounter - Iza Colon LPN - 06/10/2023 9:41 AM EDT Fani with [facility] calls to report pt is at their office now. Fani is requesting that OV notesfrom pcp to be faxed to: [phone]. OV notes faxed as requested. Iza Colon LPN documented in this encounter[facility]04-04-2024 Miscellaneous Notes* Telephone Encounter - Juana Jenkins LPN - 05/22/2023 4:55 PM EDT Information was faxed to [facility] at [phone] per phone number provided below. * Telephone Encounter - Keren Arce MD - 05/22/2023 3:37 PM EDT Filed consult for outside [facility] facility. Fax copy of MRI brain from 2018 as well as snapshot and medlist (snapshot medication list does not have sig) Saw Dr Collins (neurologist) June and November 2017. Work up was unremarkable. * Telephone Encounter - Joceline Nguyen LPN - 05/22/2023 1:48 PM EDT calling to see if they can get a referral to neurologist along with supporting information. Pthas double vision daily, fatigued all the time and headaches. Spaced out all the time doesn't feel like doing anything. This has been going on for a long time. reports pt has had testing and no one can determine what's going on. reports they want pt to see a doctor at [facility] in [place]. PH: [phone]. They will contact to schedule apt after they received information. Joceline Nguyen LPN documented in this encounter[facility]03-[facility]24 History of Present illness Narrative* Keren Arce MD - 05/07/2023 1:38 PM EDT This note was created using NoteWriter. Subjective Destiney Ocampo is a 73 year old male. Subjective The patient reports a persistent rash that has not improved since the last visit. He has been usingKetoconazole for the rash but reports no significant improvement. He also mentions that the rash might have reduced in size and appears less red. The patient has tried various topical treatments including zinc oxide and diaper rash creams. He also reports issues with sleep, waking up every hour dueto aches in his hips and shoulders. He is seeking a solution that would allow him to sleep without feeling drowsy the next day. Review of Systems Objective BP (P) 132/80 (BP Site: Left Arm, BP Position: Sitting, BP Cuff Size: Large Adult) Pulse (P) 72 Resp (P) 16 Wt (P) 97.5 kg (215 lb) BMI (P) 33.67 kg/m Physical Exam Constitutional: Appearance: Normal appearance. Pulmonary: Effort: Pulmonary effort is normal. Skin: Comments: Upon examination, the rash appears to be slightly less red on buttocks and sacrococcygealareas but has spread to a new area toward sacral area. The patient also has a yeast infection in the armpit area--red rash in axillae. Neurological: General: No focal deficit present. Mental Status: He is oriented to person, place, and time. Psychiatric: Mood and Affect: Mood normal. Behavior: Behavior normal. Thought Content: Thought content normal. Judgment: Judgment normal. Assessment and Plan ASSESSMENT/PLAN: 1. Candidal intertrigo - ICD9: 112.3, ICD10: B37.2 Assessment The patient has a persistent rash that is not responding well to Ketoconazole. He also has sleep disturbances due to pain in his hips and shoulders. Plan The patient will continue using Ketoconazole cream for the rash. A prescription for Mycostatin powder will be given to help keep the area dry. The patient will also be given a three-day course of Fluconazole to treat the yeast infection. For the sleep issues, the patient will be prescribed Trazodone to be taken as needed. The patient will also be advised to consider taking Tylenol every night to manage the pain. The patient will be encouraged to keep the area dry and to use an antiperspirant once the skin has healed. The patient will be advised to monitor the rash and to return if there is noimprovement or if the condition worsens. Work on sleep issues later. Note drafted by Anjelica guevara. Note reviewed, edited, and signed by the visit provider. documented in this encounterEast [facility] Hospital03-20-2024 Miscellaneous Notes* Telephone Encounter - Queenie Jhaveri RN - 05/07/2023 9:23 AM EDT Pt's Pat calling as for a refill on pt's Ketoconazole cream. Pt was in on 04/[address] Arce and had a rash on his buttocks and up in to his butt crack. Area is reddened and very painful.Pt states he doesn't feel like the pain has gotten any better. Has been using the cream at least 2 times a day for 3 weeks. Tube is almost empty. Pat states area is maybe a little smaller and slightly less reddened. Pt also c/o not being able to sleep well at night. States sleeping maybe 30 mins out of an hour. Since pain and rash have not improved much, appt booked for 140 pm today with for follow up. documented in this encounterEast [facility] Hospital02-29-2024 Miscellaneous Notes* Telephone Encounter - Joceline Nguyen LPN - 04/17/2023 10:12 AM EST Patient has been identified by name and date of : Yes, Provider Dr. Arce Date 04/17/23 Time10:12 am Spouse phones for refill(s): Requested Prescriptions Pending Prescriptions Disp Refills metFORMIN ER (GLUCOPHAGE XR) 500 mg 24 hr tablet 180 tablet 1 Sig: Take 1 tablet by mouth two times a day. Date of last office visit in primary care: 04/16/2023 Date of next office visit in primary care: 10/15/2023 Thank you. Joceline Nguyen LPN. documented in this encounterEast [facility] Hospital02-28-2024 History of Present illness Narrative* Keren Arce MD - 04/16/2023 9:20 AM EST This note was created using Moove Inter. Subjective Destiney Ocampo is a 73 year old male. Patient presents with: F/U 6 months SUBJECTIVE: Destiney Ocampo is a 73 year old year old gentleman here today for 6 month follow up appointment for review of medical conditions. Noted got over sinus infection after 2 rounds antibiotics. Also had abscess tooth that had to pulled. No more eye pain that had from sinus infection. CAD: Noted 65% blockage in artery but in bend so cannot stent. Entresto helping. Less palpitations. Sedentary due to hip arthritis. See assessment and plan for other issues addressed. PAST MEDICAL HISTORY Diagnosis Date Abdominal pain, other specified site Benign neoplasm of colon Diaphragmatic hernia without mention of obstruction or gangrene Diplopia 11/06/2017 Diverticulosis of colon (without mention of hemorrhage) Diverticulosis Dysthymic disorder Depression (non-psychotic) RAJI (obstructive sleep apnea) Pure hypercholesterolemia Current Outpatient Medications Medication Sig Magnesium 250 mg tab Take 1 tablet by mouth once daily. omeprazole (PRILOSEC) 20 mg capsule Take 1 capsule by mouth twice daily. metFORMIN ER (GLUCOPHAGE XR) 500 mg 24 hr tablet Take 1 tablet by mouth twice daily. ENTRESTO 49-51 mg tablet Take 1 tablet by mouth twice daily. metoprolol succinate ER (TOPROL XL) 25 mg 24 hr tablet Take 1 tablet by mouth once daily. famotidine (PEPCID) 20 mg tablet Take 1 tablet by mouth at bedtime as needed. venlafaxine ER (EFFEXOR XR) 75 mg 24 hr capsule Take 1 capsule by mouth daily at bedtime. Cholecalciferol, Vitamin D3, 50 mcg (2,000 unit) cap Take 1 capsule by mouth once daily. atorvastatin (LIPITOR) 40 mg tablet TAKE 1 TABLET BY MOUTH EVERY DAY FOR 90 DAYS aspirin 81 mg chewable tablet Take 81 mg by mouth. COMPOUNDED PRESCRIPTION Generic Glucometer - I each 50 strips and lancets. Re: Diabetes mellitus controlled with hypoglycemia. Lancets lancets Test blood sugar(s) 1-2 times daily or as directed. Dx: Type 2 DM - Controlled E11.9 Insulin: No blood sugar diagnostic (BLOOD GLUCOSE TEST) test strip Test blood sugar(s) 1-2 times daily or as directed. Dx: Type 2 DM - Controlled E11.9 Insulin: No Blood-Glucose Meter monitoring kit Glucose Meter of Choice (per insurance coverage)- Kit - Dx: Type2 DM - Controlled E11.9, Test 1-2 times a day or as directed. No insulin DOCUSATE CALCIUM (STOOL SOFTENER ORAL) Take by mouth as needed. No current facility-administered medications for this visit. Review of Systems Objective BP (P) 112/74 (BP Site: Left Arm, BP Position: Sitting, BP Cuff Size: Large Adult) Pulse (P) 84 Wt (P) 97.5 kg (215 lb) BMI (P) 33.67 kg/m Physical Exam Vitals reviewed. Constitutional: Appearance: Normal appearance. Eyes: Conjunctiva/sclera: Conjunctivae normal. Cardiovascular: Rate and Rhythm: Normal rate and regular rhythm. Heart sounds: Normal heart sounds. Pulmonary: Effort: Pulmonary effort is normal. Breath sounds: Normal breath sounds. Musculoskeletal: Right lower leg: No edema. Left lower leg: No edema. Skin: General: Skin is warm and dry. Neurological: General: No focal deficit present. Mental Status: He is alert and oriented to person, place, and time. Psychiatric: Mood and Affect: Mood normal. Behavior: Behavior normal. Thought Content: Thought content normal. Judgment: Judgment normal. Rash buttocks in perirectal area. No weeping, no signs of cellulitis, no blistering. Component Latest Ref Rng & Units 03/26/2022 09/26/2022 04/07/2023 WBC 3.70 - 11.00 k/uL 9.36 9.50 9.76 RBC 4.20 - 6.00 m/uL 5.49 5.27 5.12 Hemoglobin 13.0 - 17.0 g/dL 15.2 15.4 14.4 Hematocrit 39.0 - 51.0 % 49.2 47.6 43.2 MCV 80.0 - 100.0 fL 89.6 90.3 84.4 MCH 26.0 - 34.0 pg 27.7 29.2 28.1 MCHC 30.5 - 36.0 g/dL 30.9 32.4 33.3 RDW-CV 11.5 - 15.0 % 13.3 12.4 12.7 Platelet Count 150 - 400 k/uL 156 179 169 MPV 9.0 - 12.7 fL 12.2 12.2 10.6 Neut% % 57.1 Abs Neut (ANC) 1.45 - 7.50 k/uL 5.57 Lymph% % 34.1 Abs Lymph 1.00 - 4.00 k/uL 3.33 O'Brien% % 5.1 Abs O'Brien <0.87 k/uL 0.50 Eosin% % 2.9 Abs Eosin <0.46 k/uL 0.28 Baso% % 0.4 Abs Baso <0.11 k/uL 0.04 Immature Gran % % 0.4 IMMATURE GRANS (ABS) <0.10 k/uL 0.04 NRBC /100 WBC 0.0 Absolute nRBC <0.01 k/uL <0.01 <0.01 <0.01 DTYPE Auto Protein, Total 6.3 - 8.0 g/dL 6.7 7.3 6.7 Albumin 3.9 - 4.9 g/dL 4.3 4.6 4.1 Calcium 8.5 - 10.2 mg/dL 9.3 9.5 9.2 Bilirubin, Total 0.2 - 1.3 mg/dL 0.5 0.9 0.7 Alkaline Phosphatase 38 - 113 U/L 86 83 88 AST 14 - 40 U/L 21 16 12 (L) ALT 10 - 54 U/L 21 14 11 Glucose 74 - 99 mg/dL 147 (H) 108 (H) 114 (H) BUN 9 - 24 mg/dL 10 10 11 Creatinine 0.73 - 1.22 mg/dL 0.77 0.71 (L) 0.66 (L) Sodium 136 - 144 mmol/L 142 138 142 Potassium 3.7 - 5.1 mmol/L 5.0 4.4 4.3 Chloride 97 - 105 mmol/L 105 98 103 CO2 22 - 30 mmol/L 30 25 29 Anion Gap 9 - 18 mmol/L 7 (L) 15 10 eGFR >=60 mL/min/1.73m 96 98 100 Cholesterol, Total <200 mg/dL 136 140 Triglyceride <150 mg/dL 79 138 HDL Cholesterol >39 mg/dL 37 (L) 40 Non HDL Cholesterol <130 mg/dL 99 100 Fasting Time hrs 15 16 VLDL Cholesterol <30 mg/dL 16 28 TC:HDL Ratio <5.10 3.68 3.50 LDL Cholesterol <100 mg/dL 83 72 LDL:HDL Ratio <2.54 2.24 1.80 Creatinine, Ur Random (UCRR) 20.0 - 300.0 mg/dL 206.0 Albumin, Urine Random mg/L 19.3 Albumin/Creat Ratio <30 mg/g 9 Hemoglobin A1C 4.3 - 5.6 % 7.2 (H) 6.5 (H) 6.7 (H) Estimated Average Glucose mg/dL 160 140 146 Magnesium 1.7 - 2.3 mg/dL 1.7 1.4 (L) 1.6 (L) Vitamin D 25 Hydroxy 31.0 - 80.0 ng/mL 20.7 (L) 32.1 TSH 0.270 - 4.200 mIU/L 1.960 2.020 Free T4 0.9 - 1.7 ng/dL 1.1 1.2 Free T3 2.3 - 4.1 pg/mL 3.0 PSA Screening <2.60 ng/mL 0.04 Assessment and Plan Encounter Diagnosis ICD-10-CM 1. Controlled type 2 diabetes mellitus without complication, without long-term current use of insulin (HCC) E11.9 COMP METABOLIC PANEL ALBUMIN/CREAT RATIO RND UR HGB A1C 2. Coronary artery 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 angina [id number] ENTRESTO 49-51 mg tablet Noted not able to stent the artery. Doing well on Entresto.Also on statin and beta gino 3. Gastroesophageal reflux disease without esophagitis K21.9 Controlled with PPI. Uses Pepcid just as needed 4. Candidal intertrigo B37.2 Buttocks and perirectal area. Discussed keeping area dry with cornstarch powder, topical antifungal. Follow up if not resolving. 5. Hypomagnesemia E83.42 Magnesium 250 mg tab MAGNESIUM BLD Improved. Continue magnesium supplement and adjust dose as indicated 6. Hoarseness R49.0 famotidine (PEPCID) 20 mg tablet Apparently due to LPRD. Monitor and adjust management if not controlled with PPI and [id number] as needed 7. Primary hypertension I10 COMP METABOLIC PANEL CBC Controlled well. Continue same meds 8. Vitamin D deficiency E55.9 VITAMIN D 25 HYDROXY Just in normal range in September. Monitor and adjust supplement as needed 9. Pure hypercholesterolemia E78.00 LIPID PANEL BASIC Continue Lipitor 10. Chronic left shoulder pain M25.512 G89.29 Continue conservative management. Refer to ortho or PT as needed 11. Recurrent major depressive disorder, in full remission (HCC) F33.42 venlafaxine ER (EFFEXOR XR)75 mg 24 hr capsule Stable on Effexor 12. Need for shingles vaccine Z23 SHINGRIX PRINTED PHARMACY INSTRUCTIONS 13. Encounter for immunization Z23 RSV PRINTED PHARMACY INSTRUCTIONS TDAP PRINTED PHARMACY INSTRUCTIONS PNEUMOCOCCAL VACCINE, 20 VALENT (PREVNAR 20) 14. Hip pain, unspecified laterality M25.559 Noted affective mobility. Follow up with ortho or PT as needed Above issues addressed with patient. Patient involved in shared decision making for management of medical issues. History and medications reviewed. Epic updated as needed Refills and/or prescriptions taken care of and meds adjusted as indicated after reviewed history, exam and labs. Health Maintenance reviewed. Updated record and/or ordered tests as recorded. Encouraged on efforts at healthy diet and regular exercise and adequate sleep. Keren rAce MD documented in this encounterEast [facility]02-21-2024 Miscellaneous Notes* Telephone Encounter - Leigh Casillas RN - 04/09/2023 1:15 PM EST Left vm letting pt know Rx was sent to his pharmacy and to call back with pcp office with any questions. * Telephone Encounter - Keren Arce MD - 04/09/2023 1:04 PM EST The following approved medication requests have been transmitted electronically. Requested Prescriptions Signed Prescriptions Disp Refills doxycycline (VIBRA-TABS) 100 mg tablet 10 tablet 0 Sig: Take 1 tablet by mouth two times a day for 5 days. Authorizing Provider: KEREN ARCE MD * Telephone Encounter - Leena Wright RN - 04/09/2023 8:57 AM EST Pt called and is notified of providers message and instructions. Pt voices understanding. He stateshe has been getting better with the doxycycline, but still has been having some burning behind his eyes and a slight headache behind his eye and forehead he can't get rid of 24x7. Pt also reports sinus congestion that won't break up and at the beginning was foul smelling and has started to get better as far a smell goes. Pt will go to get nasal saline and Flonase. Pt would like if provider would call in extension on doxycycline to [facility] in [place]. Pt also has an appointment with provider 04/16/23. Patient has been identified by name and date of : Yes, Provider Dr Arce Date 04/09/23 Time 0911. Patient phones for refill(s): Requested Prescriptions Pending Prescriptions Disp Refills doxycycline (VIBRA-TABS) 100 mg tablet 10 tablet 0 Sig: Take 1 tablet by mouth two times a day for 5 days. Date of last office visit in primary care: 10/02/2022 Date of next office visit in primary care: 04/16/2023 Please advise. Thank you. Leena Wright RN. * Telephone Encounter - Keren Arce MD - 04/09/2023 8:32 AM EST See prior telephone encounter from 2013-- had called back in today. Note Patient's calls and states that patient still is not over sinus infection. Patient has completed antibiotic and asking if another antibiotic can be prescribed. states that patient still hasheadache and problems with left eye. Advised that patient needs to be seen in office to be re evaluated for this. states that patient does not want to come into appointment. Encounter was closed already. Check with them if they switched to doxycycline and whether symptoms improved. What are current symptoms? Any fevers or chills? I can extend the course if was helping. Follow up if not getting better or consider seeing ENT. If was not helping at all, can switch to another antibiotic. If not using nasal saline and/or nasal steroid to decongest sinuses, would add. Nasal saline sprays (as needed) and Flonase/Nasonex/Nasocort/Rhinocort (choose a nasal steroid; 1 to 2 sprays each nostril daily) are over the counter. documented in this encounterEast [facility] Hospital02-15-2024 Miscellaneous Notes* Telephone Encounter - Leena Wright RN - 04/03/2023 9:01 AM EST Pt called and is notified of providers message and instructions. Pt voices understanding. Leena Wright RN * Telephone Encounter - Keren Arce MD - 04/02/2023 8:02 PM EST If diarrhea too severe for him, may switch antibiotic Sent RX with note to pharmacy that patient may switch if diarrhea too severe from Augmentin. The following approved medication requests have been transmitted electronically. Requested Prescriptions Signed Prescriptions Disp Refills doxycycline (VIBRA-TABS) 100 mg tablet 10 tablet 0 Sig: Take 1 tablet by mouth two times a day for 5 days. Authorizing Provider: KEREN ARCE MD * Telephone Encounter - Margot Carter LPN - 04/02/2023 8:06 AM EST Patient Pat calling started generic Augmentin rx for sinus infection from [facility]. He is now having diarrhea, 3 watery stools a day, no nausea, he is taking the antibiotic with food. asking if he should switch to another medication, or what can he take for the diarrhea? Patient uses [facility] for his pharmacy. Please advise documented in this encounterEast [facility]02-11-2024 History of Present illness Narrative* Zoila Aguilar PA-C - 03/30/2023 10:43 AM EST This note was created using [facility]. Subjective Destiney Ocampo is a 73 year old male. HPI Presents with sinus pressure and congestion for a week. He did get a tooth pulled about 4 days ago.His gumline seems to be healing well. That actually feels better. He has had some pressure in his forehead and maxillary sinuses. Denies OTC meds. No fever. No cough. No vomiting or diarrhea. Review of Systems Constitutional: Negative. HENT: Positive for congestion, dental problem, rhinorrhea, sinus pressure and sinus pain. Negative for ear pain and sore throat. Respiratory: Negative for cough, shortness of breath and wheezing. Cardiovascular: Negative. Gastrointestinal: Negative. Genitourinary: Negative. Musculoskeletal: Negative. Neurological: Positive for headaches. All other systems reviewed and are negative. PAST MEDICAL HISTORY Diagnosis Date Abdominal pain, other specified site Benign neoplasm of colon Diaphragmatic hernia without mention of obstruction or gangrene Diplopia 11/06/2017 Diverticulosis of colon (without mention of hemorrhage) Diverticulosis Dysthymic disorder Depression (non-psychotic) RAJI (obstructive sleep apnea) Pure hypercholesterolemia Current Outpatient Medications Medication Sig Dispense Refill amoxicillin-clavulanate potassium (AUGMENTIN) 875-125 mg per tablet Take 1 tablet by mouth two times a day for 7 days. 14 tablet 0 Magnesium 250 mg tab Take 1 tablet by mouth once daily. 90 tablet 1 omeprazole (PRILOSEC) 20 mg capsule Take 1 capsule by mouth twice daily. 180 capsule 3 metFORMIN ER (GLUCOPHAGE XR) 500 mg 24 hr tablet Take 1 tablet by mouth twice daily. 180 tablet 1 ENTRESTO 49-51 mg tablet Take 1 tablet by mouth twice daily. 60 tablet 5 metoprolol succinate ER (TOPROL XL) 25 mg 24 hr tablet Take 1 tablet by mouth once daily. famotidine (PEPCID) 20 mg tablet Take 1 tablet by mouth at bedtime as needed. 30 tablet 2 venlafaxine ER (EFFEXOR XR) 75 mg 24 hr capsule Take 1 capsule by mouth daily at bedtime. 90 capsule 3 Cholecalciferol, Vitamin D3, 50 mcg (2,000 unit) cap Take 1 capsule by mouth once daily. atorvastatin (LIPITOR) 40 mg tablet TAKE 1 TABLET BY MOUTH EVERY DAY FOR 90 DAYS aspirin 81 mg chewable tablet Take 81 mg by mouth. COMPOUNDED PRESCRIPTION Generic Glucometer - I each 50 strips and lancets. Re: Diabetes mellitus controlled with hypoglycemia. 1 Each 0 Lancets lancets Test blood sugar(s) 1-2 times daily or as directed. Dx: Type 2 DM - Controlled E11.9 Insulin: No 50 Each 11 blood sugar diagnostic (BLOOD GLUCOSE TEST) test strip Test blood sugar(s) 1-2 times daily or as directed. Dx: Type 2 DM - Controlled E11.9 Insulin: No 50 Strip 11 Blood-Glucose Meter monitoring kit Glucose Meter of Choice (per insurance coverage)- Kit - Dx: Type2 DM - Controlled E11.9, Test 1-2 times a day or as directed. No insulin 1 Each 0 DOCUSATE CALCIUM (STOOL SOFTENER ORAL) Take by mouth as needed. No current facility-administered medications for this visit. PAST SURGICAL HISTORY Procedure Laterality Date COLONOSCOPY FLX DX W/COLLJ SPEC WHEN PFRMD Colonoscopy COLONOSCOPY FLX DX W/COLLJ SPEC WHEN PFRMD 01/18/2011 Colonoscopy COLSC FLX W/RMVL OF TUMOR POLYP LESION SNARE TQ 04/24/07 Diverticulosis and prox. sigmoid polyp EGD TRANSORAL BIOPSY SINGLE/MULTIPLE 04/24/07 HH, esophagitis,gastritis ESOPHAGOGASTRODUODENOSCOPY TRANSORAL DIAGNOSTIC 10/30/2012 EGD HEART CATHETERIZATION 2012 LITHOTRIPSY XTRCORP SHOCK WAVE Lithotripsy FAMILY HISTORY Problem Relation Age of Onset Psychiatry Father suicide age 44 Diabetes Mother COPD Mother Social History Tobacco Use Smoking status: Former Packs/day: 1.00 Years: 30.00 Additional pack years: 0.00 Total pack years: 30.00 Types: Cigarettes Quit date: 12/18/2004 Years since quittin.2 Smokeless tobacco: Former Tobacco comments: less than 1/2 pack daily Substance Use Topics Alcohol use: Yes Comment: rarely beer Drug use: No Objective BP 135/85 Pulse 83 Temp 36.3 C (97.4 F) Resp 18 Wt 98.1 kg (216 lb 3.2 oz) SpO2 96% BMI33.86 kg/m Physical Exam Vitals reviewed. Constitutional: Appearance: Normal appearance. HENT: Head: Normocephalic and atraumatic. Right Ear: Tympanic membrane, ear canal and external ear normal. Left Ear: Tympanic membrane, ear canal and external ear normal. Nose: Congestion present. Right Sinus: No maxillary sinus tenderness or frontal sinus tenderness. Left Sinus: Maxillary sinus tenderness present. No frontal sinus tenderness. Mouth/Throat: Mouth: Mucous membranes are moist. Pharynx: Oropharynx is clear. Comments: Recent extraction noted in the left upper gumline, no increased gumline swelling or drainage. No sign of abscess. Cardiovascular: Rate and Rhythm: Normal rate and regular rhythm. Heart sounds: Normal heart sounds. Pulmonary: Effort: Pulmonary effort is normal. Breath sounds: Normal breath sounds. Musculoskeletal: Cervical back: Neck supple. Lymphadenopathy: Cervical: No cervical adenopathy. Skin: General: Skin is warm and dry. Neurological: Mental Status: He is alert. Assessment and Plan ASSESSMENT/PLAN: 1. Acute pansinusitis, recurrence not specified - ICD9: 461.8, ICD10: J01.40 - Will begin treatment with Augmentin 875 mg PO BID for 7 days - Supportive care with plenty of fluids, rest, and analgesia prn. - Follow up in 3-5 days if symptoms persist or worsen. Zoila Aguilar PA-C documented in this encounterEast Ohio [facility] Hospital02-07-2024 Miscellaneous Notes* Telephone Encounter - Anni Ya RN - 03/26/2023 4:41 PM EST Patient has been identified by name and date of : Yes, Provider Date Time Spouse phones for refill(s): Requested Prescriptions Pending Prescriptions Disp Refills Magnesium 250 mg tab 90 tablet 1 Sig: Take 1 tablet by mouth once daily. Date of last office visit in primary care: 10/02/2022 Date of next office visit in primary care: 04/16/2023 Please advise. Thank you. Anni Ya RN. documented in this encounterEast Ohio [facility] Hospital11-28-2023 Miscellaneous Notes* Telephone Encounter - Leigh Casillas RN - 01/14/2023 9:03 AM EST Patient reports he has a reddened area above buttocks/lower back, where his underwear line is. Reports it is just red, no bumps or open areas. Reports it seems to be from pressure from sitting too much. Reports it feels a little sore. Reports he's been using neosporin on it, although no signs of infection. Advised patient to stop using neosporin unless there is a sign of infection, b/c if there is no infection it will destroy his friendly bacteria. Patient agreeable. Protocol recommends home care. Advised patient to prevent pressure on it by using pillows when sitting. Patient agreeable. Patient agreeable to home care recommendations and will call back if area worsens. Reason for Disposition Mild localized rash Answer Assessment - Initial Assessment Questions 1. APPEARANCE of RASH: About a 3 square reddened sore area just above buttock crack. Reports he thinks it's developed b/c he has been sitting too much. 2. LOCATION: Just above buttock crack/lower back. 3. NUMBER: 1 4. SIZE: Approx 3 square. It's right where his underwear line is. 5. ONSET: 3 to 4 mths ago. Has been using neosporin on it, but no signs of infection. 6. ITCHING: No 7. PAIN: Irritated, mild, sore 8. OTHER SYMPTOMS: No 9. : N/A Protocols used: Rash or Redness - [id number] documented in this [facility] Discharge summary Author Rosana Osorio [facility] January 01, 2023 10:23am Note Date/Time January 01, 2023 10:23am [facility] Physical Therapy [facility] [address] [place] [address] [address] [place] [address] / REHABILITATION SERVICES DISCHARGE SUMMARY MR#: [id number] Acct: [id number] Name: DESTINEY OCAMPO Rep #: [id number] : 1950 72 From: Rosana Lin Referring Dr.: Dr. Emery Ramirez MD Status: REG RCR Insurance: [facility] [employer] SELF PAY INSURANCE Discharge Summary D/C summary: It has been my pleasure to treat DESTINEY OCAMPO referred by Dr. Emery Ramirez MD, with the diagnosis of S/P L RC repair and sub acrom decompression 11/13/22 for a total of 8 visit(s). Discharge Date: 01/01/23 Please see the following information for a summary of their discharge status. Subjective Subjective: Pt saw Dr and he said that he looked good. He gave him a cortizone shot a few weeks ago and he is using his arm some. He has no pain. Dr said that he could do his own PT at home. He feels comfortable with that. Pt reports that Pain L shoulder pain: Pain Intensity (Out of 10): 5 Overall Improvement % Improvement: 60 Objective Objective/Function: L shoulder AROM: Flexion 155 ABD 160 ER 37 IR T12 Goals Goal 1:: I HEP Goal Progress: Goal Met Goal 2:: Increase L shoulder AROM to 160 degrees elevation and full IR/ER Goal Progress: Progressing Goal 3:: Decrease L shoulder pain to 1/10 with ADL's Goal Progress: Progressing Goal 4:: Set strength goal when able to do strengthening Plan Plan: DC PT to HEP per pt stating Dr said to continue on his own and just move his arm. D/C Information Discharge Comments: DC PT to HEP per pt request d/c sentence: If there are questions or concerns regarding this patient's physical therapy, please feel free to call me at [phone]. Thank you for the referral of thispatient. Sincerely, SHAN Gamez Balance/Gait/Functional tests Balance/Special Test Scores Quick DASH Score: 9.0900 Improvement % Improvement: 60 <Electronically signed by Rosana Osorio MPT> 01/01/23 1023 CC: Dr. Keren Arce MD; Dr. Emery Ramirez MD ~ Signed [facility] Work Phone: [phone]) 279-339509-18-2023 Miscellaneous Notes* Telephone Encounter - Desiree Orlando LPN - 11/04/2022 8:51 AM EDT Patient is asking to go back on omeprazole as the pantoprazole is not working as well. Patient phones requesting refills as follows: Requested Prescriptions Pending Prescriptions Disp Refills omeprazole (PRILOSEC) 20 mg capsule 180 capsule 3 Sig: Take 1 capsule by mouth twice daily. Please review and advise. Desiree Orlando LPN documented in this encounter[facility]08-16-[facility]23 History of Present illness Narrative* Lon Garcia APRN.LEISURE TRAVEL AGENT - 10/02/2022 8:51 AM EDT SUBJECTIVE Destiney Ocampo is a 72 year old male here today for a check up on his medical problems. Chief Complaint Patient presents with: F/U 6 months: Patient is asking is able to switch to pantoprazole. Still having some break through symptoms and does use this and works better for her. HPI Destiney Ocampo is a 72 year old male established patient of Dr. Arce. He presents today for a 6 month follow up. He was actually last seen 07/26 and we discussed his fatigue. Overall this has improved. He had labs done prior to this visit. Overall stable, most notable magnesium was low. Destiney Ocampo is a 72 year old male here today for a check up on his diabetes. He is compliant on taking his medications :Yes His blood sugars have been controlled? Yes Any low blood sugar reactions? No Denies increased urinating, eating, and drinking. Most recent HbA1c tests were: Lab Results Component Value Date HBA1C 6.5 (H) 09/26/2022 HBA1C 7.2 (H) 03/26/2022 HBA1C 7.1 (H) 08/02/2021 Destiney is a 72 year old male who presents for follow-up for hypertension. They are here today for arecheck of blood pressure. Blood pressure appears to be stable. Denies any symptoms referable to elevated blood pressure. Specifically denies headache, chest pain, palpitations, dyspnea and peripheral edema. Tolerating medications well. Follows with cardiology. His medications were reviewed today and his list is now up to date. Medications Current Outpatient Medications Medication Sig ENTRESTO 49-51 mg tablet Take 1 tablet by mouth twice daily. metoprolol succinate ER (TOPROL XL) 25 mg 24 hr tablet Take 1 tablet by mouth once daily. famotidine (PEPCID) 20 mg tablet Take 1 tablet by mouth at bedtime as needed. venlafaxine ER (EFFEXOR XR) 75 mg 24 hr capsule Take 1 capsule by mouth daily at bedtime. Cholecalciferol, Vitamin D3, 50 mcg (2,000 unit) cap Take 1 capsule by mouth once daily. atorvastatin (LIPITOR) 40 mg tablet TAKE 1 TABLET BY MOUTH EVERY DAY FOR 90 DAYS aspirin 81 mg chewable tablet Take 81 mg by mouth. DOCUSATE CALCIUM (STOOL SOFTENER ORAL) Take by mouth as needed. pantoprazole DR (PROTONIX) 40 mg tablet Take 1 tablet by mouth daily before breakfast. Take on empty stomach, 1/2 hr before meal. metFORMIN ER (GLUCOPHAGE XR) 500 mg 24 hr tablet Take 1 tablet by mouth twice daily. Magnesium 250 mg tab Take 1 tablet by mouth once daily. COMPOUNDED PRESCRIPTION Generic Glucometer - I each 50 strips and lancets. Re: Diabetes mellitus controlled with hypoglycemia. Lancets lancets Test blood sugar(s) 1-2 times daily or as directed. Dx: Type 2 DM - Controlled E11.9 Insulin: No blood sugar diagnostic (BLOOD GLUCOSE TEST) test strip Test blood sugar(s) 1-2 times daily or as directed. Dx: Type 2 DM - Controlled E11.9 Insulin: No Blood-Glucose Meter monitoring kit Glucose Meter of Choice (per insurance coverage)- Kit - Dx: Type2 DM - Controlled E11.9, Test 1-2 times a day or as directed. No insulin No current facility-administered medications for this visit. ALLERGIES Allergen Reactions Lisinopril Cough ACTIVE PROBLEM LIST Abnormal X-Ray - 11/20/2021 Complaints of Memory Disturbance - 06/18/2017 RAJI (obstructive sleep apnea) AHI 39 - 06/15/2017 Prostate Cancer (Hcc) - 01/16/2017 Comment: He had surgery in june 2016, Dr. Youssef. Pulmonary Nodule/Lesion, Solitary - 01/16/2017 Shoulder Arthritis - 10/05/2015 Comment: Was very active during his working time. Has been having right shoulder, hip and knee pain. He completely his PT a year ago or may be longer. Benign Non-Nodular Prostatic Hyperplasia With Lower Urinary Tract Symptoms - 11/21/2014 Midline Thoracic Back Pain - 09/01/2014 Numbness and Tingling of Right Upper Extremity - 09/01/2014 Numbness and Tingling in Left Upper Extremity - 09/01/2014 Cervical Spondylosis Without Myelopathy - 09/01/2014 Neck Pain - 08/16/2014 Cervical Radiculopathy - 08/16/2014 Diabetes Mellitus Type 2, Controlled, Without Complications (Hcc) - 08/15/2014 Hypertension - 07/24/2011 HIATAL HERNIA - 04/24/2007 ESOPHAGITIS REFLUX - 04/24/2007 Acute Gastritis Without Mention of Hemorrhage - 04/24/2007 Benign Neoplasm of Colon - 04/24/2007 PAIN HIP JOINT - 01/17/2006 DEPRESSION RECURRENT( Moderate) - 01/17/2006 Pure Hypercholesterolemia Diverticulosis of Colon (Without Mention of Hemorrhage) Comment: Diverticulosis Social History Tobacco Use Smoking status: Former Packs/day: 1.00 Years: 30.00 Additional pack years: 0.00 Total pack years: 30.00 Types: Cigarettes Quit date: 12/18/2004 Years since quittin.8 Smokeless tobacco: Former Tobacco comments: less than 1/2 pack daily Substance Use Topics Alcohol use: Yes Comment: rarely beer Drug use: No Review of Systems Constitutional: Negative for activity change, appetite change, chills, diaphoresis, fever and unexpected weight change. Respiratory: Negative. OBJECTIVE BP 110/72 Pulse 80 Wt 215 lb (97.5kg) SpO2 98% Physical Exam Vitals and nursing note reviewed. Constitutional: General: He is awake. He is not in acute distress. Appearance: Normal appearance. He is well-developed and well-groomed. He is not ill-appearing, toxic-appearing or diaphoretic. HENT: Head: Normocephalic. Right Ear: External ear normal. Left Ear: External ear normal. Nose: Nose normal. Eyes: General: Vision grossly intact. Conjunctiva/sclera: Conjunctivae normal. Pupils: Pupils are equal, round, and reactive to light. Neck: Vascular: No JVD. Trachea: Trachea normal. Cardiovascular: Rate and Rhythm: Normal rate and regular rhythm. Pulses: Normal pulses. Heart sounds: Normal heart sounds. No murmur heard. Pulmonary: Effort: Pulmonary effort is normal. No accessory muscle usage, prolonged expiration or respiratory distress. Breath sounds: Normal breath sounds. Musculoskeletal: Cervical back: Neck supple. Skin: General: Skin is warm and dry. Capillary Refill: Capillary refill takes less than 2 seconds. Neurological: General: No focal deficit present. Mental Status: He is alert and oriented to person, place, and time. Mental status is at baseline. Psychiatric: Attention and Perception: Attention and perception normal. Mood and Affect: Mood and affect normal. Speech: Speech normal. Behavior: Behavior normal. Behavior is cooperative. Thought Content: Thought content normal. Cognition and Memory: Cognition and memory normal. Judgment: Judgment normal. Component Latest Ref Rng & Units 09/26/2022 Protein, Total 6.3 - 8.0 g/dL 7.3 Albumin 3.9 - 4.9 g/dL 4.6 Calcium 8.5 - 10.2 mg/dL 9.5 Bilirubin, Total 0.2 - 1.3 mg/dL 0.9 Alkaline Phosphatase 38 - 113 U/L 83 AST 14 - 40 U/L 16 ALT 10 - 54 U/L 14 Glucose 74 - 99 mg/dL 108 (H) BUN 9 - 24 mg/dL 10 Creatinine 0.73 - 1.22 mg/dL 0.71 (L) Sodium 136 - 144 mmol/L 138 Potassium 3.7 - 5.1 mmol/L 4.4 Chloride 97 - 105 mmol/L 98 CO2 22 - 30 mmol/L 25 Anion Gap 9 - 18 mmol/L 15 eGFR >=60 mL/min/1.73m 98 WBC 3.70 - 11.00 k/uL 9.50 RBC 4.20 - 6.00 m/uL 5.27 Hemoglobin 13.0 - 17.0 g/dL 15.4 Hematocrit 39.0 - 51.0 % 47.6 MCV 80.0 - 100.0 fL 90.3 MCH 26.0 - 34.0 pg 29.2 MCHC 30.5 - 36.0 g/dL 32.4 RDW-CV 11.5 - 15.0 % 12.4 Platelet Count 150 - 400 k/uL 179 MPV 9.0 - 12.7 fL 12.2 Absolute nRBC <0.01 k/uL <0.01 Cholesterol, Total <200 mg/dL 140 Triglyceride <150 mg/dL 138 HDL Cholesterol >39 mg/dL 40 Non HDL Cholesterol <130 mg/dL 100 Fasting Time hrs 16 VLDL Cholesterol <30 mg/dL 28 TC:HDL Ratio <5.10 3.50 LDL Cholesterol <100 mg/dL 72 LDL:HDL Ratio <2.54 1.80 Hemoglobin A1C 4.3 - 5.6 % 6.5 (H) Estimated Average Glucose mg/dL 140 Magnesium 1.7 - 2.3 mg/dL 1.4 (L) Vitamin D 25 Hydroxy 31.0 - 80.0 ng/mL 32.1 TSH 0.270 - 4.200 mIU/L 2.020 Free T4 0.9 - 1.7 ng/dL 1.2 Free T3 2.3 - 4.1 pg/mL 3.0 ASSESSMENT/PLAN: 1. Controlled type 2 diabetes mellitus without complication, without long-term current use of insulin (HCC) - ICD9: 250.00, ICD10: E11.9 (primary diagnosis) - Controlled - Decrease metformin - Statin prescribed - atorvastatin - Counseled on healthy diet and regular exercise - Discussed need for and benefit of weight loss. BMI 33.67 kg/(m^2) - Follow up in 6 months, sooner should any other issues arise. - METFORMIN ER 500 MG TABLET,EXTENDED RELEASE 24 HR 2. Hypomagnesemia - ICD9: 275.2, ICD10: E83.42 Start daily mag supplement. - MAGNESIUM 250 MG TABLET 3. Primary hypertension - ICD9: 401.9, ICD10: I10 - Controlled - Continue current medications - Recommend home blood pressure monitoring, to bring results to next visit - Encouraged sodium restriction, DASH or Mediterranean diet - Recommend regular aerobic exercise 4. Gastroesophageal reflux disease with esophagitis without hemorrhage - ICD9: 530.81, 530.10, ICD10: K21.00 - Discussed lifestyle modifications including losing weight, limiting caffeine, no meals three hours before sleep, and head of bed elevation - Will change to Protonix from omeprazole per patient request for better insurance coverage - PANTOPRAZOLE 40 MG TABLET,DELAYED RELEASE Portions of this note have been entered by ancillary staff. I have reviewed and when necessary edited, so that they are an adequate record of my encounter with this patient Please note that parts of this document were created using voice recognition software and therefore may contain grammatical errors. Patient verbalizes understanding of instructions from today's visit and in agreement with treatmentplan. Questions answered. Agrees to call the office if questions, concerns of issues with acute symptoms not improving or if they worsen. See diagnoses and orders for additional plan(s). Allergies and medications were reviewed, list was updated, and refills given if needed. Past medical, surgical, social, and family history reviewed and updated as appropriate. Encouraged proper diet & exercise as well as compliance with taking medications. Age- appropriate health preventative measures were discussed. Return in about 6 months (around 04/04/2023) for Follow up on chronic conditions and medications.. Lon Garcia APRN-LEISURE TRAVEL AGENT documented in this encounter[facility]06-[facility]23 History of Present illness Narrative* Lon Garcia APRN.CNP - 07/26/2022 10:34 AM EDT SUBJECTIVE Destiney Ocampo is a 72 year old male here today for a check up on his medical problems. Chief Complaint Patient presents with: Medication Follow-up HPI Destiney Ocampo is a 72 year old male who presents today for follow up on fatigue, feeling tired. Prior diagnosis of sleep apnea, CPAP not helpful. At last visit we discussed increasing water intake, decreased Entresto due to blood pressure being low and started Wellbutrin, stopped metformin and addedglimepiride. He states he had headaches and nightmares so stopped those meds and went back to his old meds and is feeling good, not worse than prior. Has not increased fluids, drinks 8 ounce glass ofwater with pills in the am ( says 5 ounces) and then another at night. Has pop or coffee duringthe day. Feels full, always bloated. Last BM was day before yesterday, really denies constipation. Goes 3 times a week. [place] of 3-4. Last colonoscopy was with Dr. Stringer 06/12/2017 and he advised follow up could be in 7-10 years. His medications were reviewed today and his list is now up to date. Medications Current Outpatient Medications Medication Sig metoprolol succinate ER (TOPROL XL) 25 mg 24 hr tablet Take 1 tablet by mouth once daily. famotidine (PEPCID) 20 mg tablet Take 1 tablet by mouth at bedtime as needed. omeprazole (PRILOSEC) 20 mg capsule Take 1 capsule by mouth twice daily. venlafaxine ER (EFFEXOR XR) 75 mg 24 hr capsule Take 1 capsule by mouth daily at bedtime. Cholecalciferol, Vitamin D3, 50 mcg (2,000 unit) cap Take 1 capsule by mouth once daily. atorvastatin (LIPITOR) 40 mg tablet TAKE 1 TABLET BY MOUTH EVERY DAY FOR 90 DAYS aspirin 81 mg chewable tablet Take 81 mg by mouth. DOCUSATE CALCIUM (STOOL SOFTENER ORAL) Take by mouth as needed. metFORMIN ER (GLUCOPHAGE XR) 500 mg 24 hr tablet Take 1 tablet by mouth daily with breakfast AND 2 tablets daily with dinner. ENTRESTO 49-51 mg tablet Take 1 tablet by mouth twice daily. COMPOUNDED PRESCRIPTION Generic Glucometer - I each 50 strips and lancets. Re: Diabetes mellitus controlled with hypoglycemia. Lancets lancets Test blood sugar(s) 1-2 times daily or as directed. Dx: Type 2 DM - Controlled E11.9 Insulin: No blood sugar diagnostic (BLOOD GLUCOSE TEST) test strip Test blood sugar(s) 1-2 times daily or as directed. Dx: Type 2 DM - Controlled E11.9 Insulin: No Blood-Glucose Meter monitoring kit Glucose Meter of Choice (per insurance coverage)- Kit - Dx: Type2 DM - Controlled E11.9, Test 1-2 times a day or as directed. No insulin No current facility-administered medications for this visit. ALLERGIES Allergen Reactions Lisinopril Cough ACTIVE PROBLEM LIST Abnormal X-Ray - 11/20/2021 Complaints of Memory Disturbance - 06/18/2017 RAJI (obstructive sleep apnea) AHI 39 - 06/15/2017 Prostate Cancer (Hcc) - 01/16/2017 Comment: He had surgery in june 2016, Dr. Youssef. Pulmonary Nodule/Lesion, Solitary - 01/16/2017 Shoulder Arthritis - 10/05/2015 Comment: Was very active during his working time. Has been having right shoulder, hip and knee pain. He completely his PT a year ago or may be longer. Benign Non-Nodular Prostatic Hyperplasia With Lower Urinary Tract Symptoms - 11/21/2014 Midline Thoracic Back Pain - 09/01/2014 Numbness and Tingling of Right Upper Extremity - 09/01/2014 Numbness and Tingling in Left Upper Extremity - 09/01/2014 Cervical Spondylosis Without Myelopathy - 09/01/2014 Neck Pain - 08/16/2014 Cervical Radiculopathy - 08/16/2014 Diabetes Mellitus Type 2, Controlled, Without Complications ([facility]) - 08/15/2014 Hypertension - 07/24/2011 HIATAL HERNIA - 04/24/2007 ESOPHAGITIS REFLUX - 04/24/2007 Acute Gastritis Without Mention of Hemorrhage - 04/24/2007 Benign Neoplasm of Colon - 04/24/2007 PAIN HIP JOINT - 01/17/2006 DEPRESSION RECURRENT( Moderate) - 01/17/2006 Pure Hypercholesterolemia Diverticulosis of Colon (Without Mention of Hemorrhage) Comment: Diverticulosis Social History Tobacco Use Smoking status: Former Packs/day: 1.00 Years: 30.00 Pack years: 30.00 Types: Cigarettes Quit date: 12/18/2004 Years since quittin.6 Smokeless tobacco: Former Tobacco comments: less than 1/2 pack daily Substance Use Topics Alcohol use: Yes Comment: rarely beer Drug use: No Review of Systems Respiratory: Negative. Cardiovascular: Negative. Gastrointestinal: Negative for abdominal distention, abdominal pain, anal bleeding, blood in stool,constipation, diarrhea, nausea, rectal pain and vomiting. OBJECTIVE BP 130/76 Pulse 82 Wt 215 lb (97.5kg) SpO2 98% Physical Exam Vitals and nursing note reviewed. Constitutional: General: He is awake. He is not in acute distress. Appearance: Normal appearance. He is well-developed and well-groomed. He is not ill-appearing, toxic-appearing or diaphoretic. HENT: Head: Normocephalic. Right Ear: External ear normal. Left Ear: External ear normal. Nose: Nose normal. Eyes: General: Vision grossly intact. Conjunctiva/sclera: Conjunctivae normal. Pupils: Pupils are equal, round, and reactive to light. Neck: Vascular: No JVD. Trachea: Trachea normal. Cardiovascular: Rate and Rhythm: Normal rate and regular rhythm. Pulses: Normal pulses. Heart sounds: Normal heart sounds. No murmur heard. Pulmonary: Effort: Pulmonary effort is normal. No accessory muscle usage, prolonged expiration or respiratory distress. Breath sounds: Normal breath sounds. Musculoskeletal: Cervical back: Neck supple. Skin: General: Skin is warm and dry. Capillary Refill: Capillary refill takes less than 2 seconds. Neurological: General: No focal deficit present. Mental Status: He is alert and oriented to person, place, and time. Mental status is at baseline. Psychiatric: Attention and Perception: Attention and perception normal. Mood and Affect: Mood and affect normal. Speech: Speech normal. Behavior: Behavior normal. Behavior is cooperative. Thought Content: Thought content normal. Cognition and Memory: Cognition and memory normal. Judgment: Judgment normal. ASSESSMENT/PLAN: 1. Controlled type 2 diabetes mellitus without complication, without long-term current use of insulin (HCC) - ICD9: 250.00, ICD10: E11.9 (primary diagnosis) He went back to metformin, other complaints are of abdominal bloating but this did not improve withbeing off of the metformin. - METFORMIN ER 500 MG TABLET,EXTENDED RELEASE 24 HR 2. Major depressive disorder, recurrent episode, moderate (HCC) - ICD9: 296.32, ICD10: F33.1 Stable, doing okay off of Wellbutrin. 3. Primary hypertension - ICD9: 401.9, ICD10: I10 - Controlled, went back to a whole pill of Entresto - Continue current medications - Recommend home blood pressure monitoring, to bring results to next visit - Encouraged sodium restriction, DASH or Mediterranean diet - Recommend regular aerobic exercise 4. Other fatigue - ICD9: 780.79, ICD10: R53.83 Improved 5. Functional bloating - ICD9: 787.3, ICD10: R14.0 Recommended fiber in diet, can try a probiotic, also needs to increase water intake, abdominal massage to help with gas movement. May need to consider updating colonoscopy early if persistent. Portions of this note have been entered by ancillary staff. I have reviewed and when necessary edited, so that they are an adequate record of my encounter with this patient Please note that parts of this document were created using voice recognition software and therefore may contain grammatical errors. Patient verbalizes understanding of instructions from today's visit and in agreement with treatmentplan. Questions answered. Agrees to call the office if questions, concerns of issues with acute symptoms not improving or if they worsen. See diagnoses and orders for additional plan(s). Allergies and medications were reviewed, list was updated, and refills given if needed. Past medical, surgical, social, and family history reviewed and updated as appropriate. Encouraged proper diet & exercise as well as compliance with taking medications. Age- appropriate health preventative measures were discussed. Return if symptoms worsen or fail to improve, for Keep next scheduled appointment.. Lon Garcia APRN-JOHN documented in this encounter[facility]05-12-2023 Miscellaneous Notes* Telephone Encounter - Desiree Orlando LPN - 06/28/2022 2:01 PM EDT PATIENT NOTIFIED OF SAME. Follow up scheduled 07/26/2022. * Telephone Encounter - Lon Garcia APRN.CNP - 06/28/2022 12:55 PM EDT Sent in script for glipizide 5 mg twice daily to replace the metformin, start Wellbutrin 150 daily in addition to his other meds. Follow up in 4-6 weeks for new med follow up. * Telephone Encounter - Desiree Orlando LPN - 06/28/2022 12:50 PM EDT Yes they would like to replace the metformin with something else. They would like to add an antidepressant medication to what he is already taking. States he is complaining of fatigue and asking for something to help with that. * Telephone Encounter - Lon Garcia APRN.JOHN - 06/28/2022 12:03 PM EDT Can we please clarify they would like to stop the metformin and try an alternative or are they asking to add to his anti-depressant regimen? We can replace the metformin with some thing like glimepiride, biggest thing to note with that change is to watch for low blood sugars. IF wanting to add to his depression medication I believe they are thinking of something like Wellbutrin to add to what he is already taking. * Telephone Encounter - Hannah Cotton RN - 06/28/2022 10:32 AM EDT Spouse (Pat) calls back to request a change in metformin d/t side effects. She reports patient has fatigue, lethargy, and all the side effects listed on the product insert for over a year and s/e areworsening. Patient would like to try something different. Forwarding to Lon as well as patient was to update on fatigue from 06/04/2022 appt. Please review and advise, Hannah Cotton RN * Telephone Encounter - Margot Carter LPN - 06/27/2022 11:05 AM EDT Patient Pat calling said that Dr Arce said there is another medication could add with his anti-depressant Venlafaxine, she could not remember the name of it. asking for rx of that medication to be sent to [facility] for her please? Aware PCP is out of office on . Please advise documented in this encounterEast [facility]04-14-2023 Miscellaneous Notes* Telephone Encounter - Desiree Orlando LPN - 05/31/2022 10:32 AM EDT aware of same and patient has agreed to come for appointment that is scheduled. * Telephone Encounter - Lon Garcia APRN.CNP - 05/31/2022 7:30 AM EDT Agree with him coming in for an appointment, we can certainly do a med review and make some changes/adjustments and also check some labs to see if anything else might be contributing. * Telephone Encounter - Leena Wright RN - 05/30/2022 12:36 PM EDT Pts called in and reports Pt has had fatigue for a while but it's getting worse, and his voiceis getting hoarse. She was asking if any of his medications could be doing this. She states her sister had been on Metformin and was having side effects from it and was put on Glimepiride. She didn'tknow if changing any of his medications could help with this. She states he like to be doing things and with the fatigue he can only do things for about an hour and he has to rest. She states he getsreally down and says thins like,I don't even care if I live.. I asked her if she though he would harm himself, and she said no she just thinks he's depressed. She doesn't think he would hurt her either. Scheduled him with Lon Garcia on 06/04/22. When Pt gets home she is going to see if he would be willing to come in. If he won't she will call in and cancel the appointment. Please call and advise. documented in this encounter[facility] History of Present illness Narrative* Rashid Grimes, INTEGRATION MANAGER.ELECTRIC LOCOMOTIVE CRANE OPERATOR - 05/09/2022 9:00 AM EDT SUBJECTIVE Destiney Ocampo is a 72 year old male who presents with 1 month of symptoms that are stable. Without recent illness or fever. He notes chronic nasal congestion and drainage. PND, chronic. Uses [place] pot at times. 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 Does not take any allergy medicines. Notes currently GERD seems well controlled. Taking PPI twice daily. No report of abdominal pain nausea vomiting diarrhea constipation or URI symptoms. He reports that he quit smoking about 17 years ago. His smoking use included cigarettes. He has a 30.00 pack-year smoking history. He has quit using smokeless tobacco. OBJECTIVE PHYSICAL EXAM: BP 130/88 Pulse 72 Temp (!) 35.9 C (96.6 F) Resp 16 Wt 97.1 kg (214 lb) SpO2 98% BMI 33.52 kg/m General appearance: healthy, alert, cooperative, pleasant, in no acute distress Head: Normocephalic Eyes: conjunctiva/corneas normal Nose: clear rhinorrhea, mucosa erythematous and swollen Oropharynx: moist without lesions Neck: supple and no adenopathy Heart: regular rate and rhythm, without murmur Lungs: clear to auscultation, without rales or wheeze, good air exchange ASSESSMENT/PLAN (R49.0) Hoarseness (primary encounter diagnosis) (K21.9) Gastroesophageal reflux disease without esophagitis (J34.89) Nasal drainage ASSESSMENT/PLAN: 1. Hoarseness - ICD9: 784.42, ICD10: R49.0 (primary diagnosis) - FAMOTIDINE 20 MG TABLET - CONSULT TO ENT 2. Gastroesophageal reflux disease without esophagitis - ICD9: 530.81, ICD10: K21.9 3. Nasal drainage - ICD9: 478.19, ICD10: J34.89 - CONSULT TO ENT - CETIRIZINE 10 MG TABLET Recommend treating nasal drainage with allergy medication. Follow lifestyle measures for GERD. Add famotidine for up to 2 to 3 months. Consider ENT visit if not improving with above measures. Rashid Grimes APRN.CNS Medical Decision Making: Problems: Low: Acute, uncomplicated illness or injury Risk: Low: Low risk from testing/treatment Moderate: Drug management Medical Decision Making Level: 3 - Low documented in this encounterEast [facility]02-13-[facility]23 History of Present illness Narrative* Keren Arce MD - 04/01/2022 4:50 PM EST This note was created using [facility]. Subjective Destiney Ocampo is a 72 year old male. Patient presents with: F/U 6 months SUBJECTIVE: Destiney Ocampo is a 72 year old year old gentleman here today for 6 month follow up appointment for review of medical conditions. Following with Dr. Walters for cardiology. Doing well on current meds. Occasional ear ache. Sometimes needs ears cleaned out. Uses Debrox as needed. No trouble hearing right now. No symptoms of sugars being too high or low. Dreams a lot. Broken sleep. Was on CPAP. Stopped after a few years. Quit a couple years. Daytime sleepiness. Dr. Palafox and another provider in [place]. PAST MEDICAL HISTORY Diagnosis Date Abdominal pain, other specified site Benign neoplasm of colon Diaphragmatic hernia without mention of obstruction or gangrene Diplopia 11/06/2017 Diverticulosis of colon (without mention of hemorrhage) Diverticulosis Dysthymic disorder Depression (non-psychotic) RAJI (obstructive sleep apnea) Pure hypercholesterolemia Current Outpatient Medications Medication Sig ENTRESTO 49-51 mg tablet Take 1 tablet by mouth twice daily. atorvastatin (LIPITOR) 40 mg tablet TAKE 1 TABLET BY MOUTH EVERY DAY FOR 90 DAYS aspirin 81 mg chewable tablet Take 81 mg by mouth. metoprolol succinate ER (TOPROL XL) 50 mg 24 hr tablet Take 1 tablet by mouth once daily. (Patient taking differently: Take 25 mg by mouth once daily.) COMPOUNDED PRESCRIPTION Generic Glucometer - I each 50 strips and lancets. Re: Diabetes mellitus controlled with hypoglycemia. Lancets lancets Test blood sugar(s) 1-2 times daily or as directed. Dx: Type 2 DM - Controlled E11.9 Insulin: No blood sugar diagnostic (BLOOD GLUCOSE TEST) test strip Test blood sugar(s) 1-2 times daily or as directed. Dx: Type 2 DM - Controlled E11.9 Insulin: No Blood-Glucose Meter monitoring kit Glucose Meter of Choice (per insurance coverage)- Kit - Dx: Type2 DM - Controlled E11.9, Test 1-2 times a day or as directed. No insulin DOCUSATE CALCIUM (STOOL SOFTENER ORAL) Take by mouth as needed. omeprazole (PRILOSEC) 20 mg capsule Take 1 capsule by mouth twice daily. venlafaxine ER (EFFEXOR XR) 75 mg 24 hr capsule Take 1 capsule by mouth daily at bedtime. metFORMIN ER (GLUCOPHAGE XR) 500 mg 24 hr tablet Take 1 tablet by mouth daily with breakfast AND 2 tablets daily with dinner. carbamide peroxide (DEBROX) 6.5 % otic solution Use 5 Drops in both ears twice daily. (Patient not taking: No sig reported) No current facility-administered medications for this visit. Review of Systems Objective BP 110/72 Pulse 84 Temp 36.5 C (97.7 F) Resp 18 Wt 99.3 kg (219 lb) SpO2 96% BMI 34.30 kg/m Last 5 Encounter Wt Readings: Date: Wt: 04/01/2022 99.3 kg (219 lb) 11/20/2021 100.7 kg (222 lb) 08/10/2021 98 kg (216 lb) 01/01/2021 101.6 kg (224 lb) 08/17/2020 99.8 kg (220 lb) No waist measurement recorded Estimated body mass index is 34.3 kg/m as calculated from the following: Height as of 06/26/20: 170.2 cm (5' 7). Weight as of this encounter: 99.3 kg (219 lb). Last 5 Encounter BP Readings: Date: BP: 04/01/2022 110/72 11/20/2021 100/54 08/10/2021 118/72 01/01/2021 148/74 08/23/2020 122/78 Physical Exam Vitals reviewed. Constitutional: Appearance: Normal appearance. Eyes: Conjunctiva/sclera: Conjunctivae normal. Cardiovascular: Rate and Rhythm: Normal rate and regular rhythm. Heart sounds: Normal heart sounds. Pulmonary: Effort: Pulmonary effort is normal. Breath sounds: Normal breath sounds. Skin: General: Skin is warm and dry. Neurological: General: No focal deficit present. Mental Status: He is alert and oriented to person, place, and time. Psychiatric: Mood and Affect: Mood normal. Behavior: Behavior normal. Thought Content: Thought content normal. Judgment: Judgment normal. Assessment and Plan Encounter Diagnosis ICD-10-CM 1. Gastroesophageal reflux disease without esophagitis K21.9 omeprazole (PRILOSEC) 20 mg capsule 2. Controlled type 2 diabetes mellitus without complication, without long-term current use of insulin (HCC) E11.9 metFORMIN ER (GLUCOPHAGE XR) 500 mg 24 hr tablet COMP METABOLIC PANEL HGB A1C 3. RAJI (obstructive sleep apnea) AHI 39 G47.33 Will consider seeing sleep medicine to discuss options for treating RAJI instead of CPAP given severity and ongoing daytme sleepiness 4. Pure hypercholesterolemia E78.00 LIPID PANEL BASIC 5. Primary hypertension I10 COMP METABOLIC PANEL CBC 6. Hypothyroidism, unspecified type E03.9 TSH BLD T4 FREE/FREE THYROX T3 FREE BLD 7. Vitamin D deficiency E55.9 VITAMIN D 25 HYDROXY 8. Encounter for long-term current use of medication Z79.899 MAGNESIUM BLD Above issues addressed with patient. Patient involved in shared decision making for management of medical issues. History and medications reviewed. Epic updated as needed Refills and/or prescriptions taken care of and meds adjusted as indicated after reviewed history, exam and labs. Health Maintenance reviewed. Updated record and/or ordered tests as recorded. Encouraged on efforts at healthy diet and regular exercise and adequate sleep. Keren Arce MD documented in this encounterEast [facility]01-28-2023 Miscellaneous Notes* Telephone Encounter - Leena Wright RN - 03/16/2022 9:17 AM EST Pts called and is notified of providers message and instructions. She voices understanding andstates he can talk more about it with provider at the appointment. Leena Wright RN * Telephone Encounter - Keren Arce MD - 03/15/2022 5:59 PM EST Found 2020 stress test done at [facility] ORIGINAL NM MYOCARDIAL SPECT STRESS/REST CLINICAL STATEMENT: Chest pain TECHNIQUE: Lexiscan dose: 0.4 mg Radiopharmaceutical (stress): Tc-99m Sestamibi Dose:31.4 mCi Radiopharmaceutical (rest): Tc-99m Sestamibi Dose:10.3 mCi SPECT acquisition and processing Reconstruction and reorientation of SPECT images into short axis, vertical and horizontal long axisplanes Quantitative LVEF assessment COMPARISON:No prior studies for comparison. REPORT:Overall technically difficult study. Mild motion noted on review of rotating raw images. There is a small sized mild intensity defect noted during both stress and rest images. The defect is worse with stress. This likely represents infarct with an infarct ischemia. Tid ratio is 1.1. LEFT ventricular ejection fraction is 49%. LEFT ventricular end-diastolic volume is 101 mL. IMPRESSION: Inferior wall defect that may represent infarction with michelle-infarct ischemia. Low normal to mildly reduced LEFT ventricular ejection fraction of 49%. ECG portion will be dictated separately. Interpreted By: Olvin Mendoza Preliminary Report By: Olvin Mendoza Electronically Signed By: Olvin Mendoza Dictated Date: 02/05/2021 10:48:59 AM Prelim Date: 02/05/2021 10:48:59 AM Sign Date: 02/05/2021 10:54:43 AM Ordering Provider:Berny Walters Also found recent February 2022 cardiology progress note stating the EF improved up to 50% with Entresto. Wonder if EF still being below normal range plus deconditioning may be contributing to fatigue. Has more than just CMP ordered for labs. Reordered labs to include more labs since on PPI plus fatigue work up requested. * Telephone Encounter - Leena Wright RN - 03/14/2022 9:34 AM EST Pts called in asking about labs before appointment, and she was asking about liver labs since the Pt has a fatty liver. Did not know if provider wanted anything else than what's in CMP. She alsoreports that Pt has been severely fatigued for years, since before his BP meds. She was asking if any of his medications could be causing this. She states he had used a Cpap for years a while ago, but it didn't help. I let her know that RAJI could be contributing to it, but she thinks it's somethingelse. States you can talk about it at Pts upcoming appointment. documented in this encounter[facility]10-17-2022 Miscellaneous Notes* Telephone Encounter - Juana Adams LPN - 12/03/2021 2:35 PM EDT Patient notified of providers message and verbalized understanding. * Telephone Encounter - Rashid Grimes APRN.CNS - 12/02/2021 9:58 AM EDT Please let him know that no concerning findings on chest CT. documented in this encounterEast [facility]10-13-2022 History of Present illness Narrative* RT Shadi(R) - 11/29/2021 11:20 AM EDT Radiology Service Progress Note PATIENT NAME: Destiney Ocampo DATE OF SERVICE: November 29, 2021 TIME: 3:29 PM PATIENT IDENTITY VERIFICATION COMPLETED USING TWO (2) IDENTIFIERS: Name and Date of confirmedby patient verbally. FALL SCREENING: Has the patient had 2 falls in the last year or 1 fall with injury or currently using an Ambulatory Assistive Device (Walker, Cane, Wheelchair, Crutches, etc.)? No PATIENT GENDER DATA: Male PATIENT RELEVANT IMPLANT DATA REVIEWED: Yes RADIOLOGY DEPARTMENT: CT; Exam(s) Completed: Chest PERIPHERAL IV DATA: Not applicable SIGNED BY: RT Samuel(R) November 29, 2021 3:29 PM documented in this encounterEast [facility]10-04-2022 Instructions* Patient Instructions* Rashid Grimes APRN.CNS - 11/20/2021 3:27 PM EDT Please schedule a CT of your chest We will take your films and check to see if the radiologist can review. We will return when we are done documented in this encounterEast [facility]10-04-2022 History of Present illness Narrative* Rashid Grimes APRN.CNS - 11/20/2021 3:00 PM EDT SUBJECTIVE: ABDOMINAL AORTIC ANEURYSM SCREENING Never done DILATED RETINAL EXAM due on 01/19/2020 DIABETIC FOOT EXAM due on 06/26/2021 URINE ALBUMIN:CREATININE RATIO due on 10/11/2021 LDL CHOLESTEROL due on 10/11/2021 HPI Destiney Ocampo is a 71 year old male. PMH signficiant for ACTIVE PROBLEM LIST Pure Hypercholesterolemia Diverticulosis of Colon (Without Mention of Hemorrhage) PAIN HIP JOINT DEPRESSION RECURRENT( Moderate) HIATAL HERNIA ESOPHAGITIS REFLUX Acute Gastritis Without Mention of Hemorrhage Benign Neoplasm of Colon Hypertension Diabetes Mellitus Type 2, Controlled, Without Complications (Hcc) Neck Pain Cervical Radiculopathy Midline Thoracic Back Pain Numbness and Tingling of Right Upper Extremity Numbness and Tingling in Left Upper Extremity Cervical Spondylosis Without Myelopathy Benign Non-Nodular Prostatic Hyperplasia With Lower Urinary Tract Symptoms Shoulder Arthritis Prostate Cancer (Hcc) Pulmonary Nodule RAJI (obstructive sleep apnea) AHI 39 Complaints of Memory Disturbance Presents today regarding lump on lung. He reports that he was seeing his orthopedic doctor Dr. Cohen that had completed a shoulder x-ray and noted a pulmonary nodule on this. He reports he was advised to check with his primary care provider regarding events. He was noted to have pulmonary nodule 2017 at the left lower lung when he was undergoing evaluationfor prostate cancer. See scanned documents. Currently without shortness of breath cough wheeze. No weight loss or fevers. Review of Systems Constitutional: Negative. Objective BP (P) 106/58 Pulse 77 Resp 12 Wt 100.7 kg (222 lb) SpO2 97% BMI 34.77 kg/m Physical Exam Vitals and nursing note reviewed. Constitutional: Appearance: Normal appearance. HENT: Head: Normocephalic and atraumatic. Eyes: Conjunctiva/sclera: Conjunctivae normal. Neck: Thyroid: No thyromegaly. Vascular: Normal carotid pulses. No JVD. Cardiovascular: Rate and Rhythm: Normal rate and regular rhythm. Heart sounds: Normal heart sounds. Pulmonary: Effort: Pulmonary effort is normal. Breath sounds: Normal breath sounds. Abdominal: General: Bowel sounds are normal. Palpations: Abdomen is soft. Skin: General: Skin is warm and dry. Neurological: General: No focal deficit present. Mental Status: He is alert and oriented to person, place, and time. ALLERGIES Allergen Reactions Lisinopril Cough Medications atorvastatin (LIPITOR) 40 mg tablet TAKE 1 TABLET BY MOUTH EVERY DAY FOR 90 DAYS aspirin 81 mg chewable tablet Take 81 mg by mouth. ENTRESTO 24-26 mg tablet Take 1 tablet by mouth twice daily. metoprolol succinate ER (TOPROL XL) 50 mg 24 hr tablet Take 1 tablet by mouth once daily. omeprazole (PRILOSEC) 20 mg capsule Take 1 capsule by mouth twice daily. metFORMIN ER (GLUCOPHAGE XR) 500 mg 24 hr tablet Take 1 tablet by mouth daily with breakfast AND 2 tablets daily with dinner. venlafaxine ER (EFFEXOR XR) 75 mg 24 hr capsule Take 1 capsule by mouth daily at bedtime. meloxicam (MOBIC) 15 mg tablet Take 1 tablet by mouth once daily. (Patient not taking: Reported on 08/10/2021 ) diphenhydrAMINE (BENADRYL) 25 mg capsule Take 2 capsules by mouth every 6 hours as needed. (Patientnot taking: Reported on 08/10/2021 ) losartan (COZAAR) 100 mg tablet Take 1 tablet by mouth once daily. (Patient not taking: Reported on08/10/2021 ) simvastatin (ZOCOR) 20 mg tablet Take 1 tablet by mouth daily at bedtime. (Patient not taking: Reported on 08/10/2021 ) carbamide peroxide (DEBROX) 6.5 % otic solution Use 5 Drops in both ears twice daily. COMPOUNDED PRESCRIPTION Generic Glucometer - I each 50 strips and lancets. Re: Diabetes mellitus controlled with hypoglycemia. Lancets lancets Test blood sugar(s) 1-2 times daily or as directed. Dx: Type 2 DM - Controlled E11.9 Insulin: No blood sugar diagnostic (BLOOD GLUCOSE TEST) test strip Test blood sugar(s) 1-2 times daily or as directed. Dx: Type 2 DM - Controlled E11.9 Insulin: No Blood-Glucose Meter monitoring kit Glucose Meter of Choice (per insurance coverage)- Kit - Dx: Type2 DM - Controlled E11.9, Test 1-2 times a day or as directed. No insulin DOCUSATE CALCIUM (STOOL SOFTENER ORAL) Take by mouth as needed. Polyethylene Glycol 3350 (MIRALAX) 17 gram/dose ORAL powder Take by mouth. use as directed PAST MEDICAL HISTORY Diagnosis Date Abdominal pain, other specified site Benign neoplasm of colon Diaphragmatic hernia without mention of obstruction or gangrene Diplopia 11/06/2017 Diverticulosis of colon (without mention of hemorrhage) Diverticulosis Dysthymic disorder Depression (non-psychotic) RAJI (obstructive sleep apnea) Pure hypercholesterolemia Social History Tobacco Use Smoking status: Former Packs/day: 1.00 Years: 30.00 Pack years: 30.00 Types: Cigarettes Quit date: 12/18/2004 Years since quittin.9 Smokeless tobacco: Former Tobacco comments: less than 1/2 pack daily Substance Use Topics Alcohol use: Yes Comment: rarely beer Drug use: No ASSESSMENT/PLAN: 1. Pulmonary nodule/lesion, solitary - ICD9: 793.11, ICD10: R91.1 (primary diagnosis) - CT CHEST WO IVCON 2. Lung nodules - ICD9: 793.19, ICD10: R91.8 3. Abnormal x-ray - ICD9: 793.99, ICD10: R93.89 - CT CHEST WO IVCON 4. Prostate cancer (HCC) - ICD9: 185, ICD10: C61 - CT CHEST WO IVCON Noted to have left lower lobe pulmonary nodule on CT 2017-see scanned documents. Prior history of prostate cancer, incidental finding as part of his work-up for prostate cancer at that time. Reports that he was seen recently at orthopedic physicians office and pulmonary nodule was seen on shoulder x-ray. He was advised to follow-up with his primary care provider regarding this. He brings in films on CD, we will send these to radiology for review and return to him. Recommend CT chest for follow-up pulmonary nodule, abnormal x-ray, history of prostate cancer. Rashid Grimes APRN.CNS Medical Decision Making: Problems: Moderate: New problem with uncertain prognosis Data: Independent interpretation of test from other physician/QHCP Medical Decision Making Level: 4 - Moderate documented in this encounterEast [facility]06-24-2022 Instructions* Patient Instructions* Keren Arce MD - 08/10/2021 5:45 PM EDT Let me know if/when want to work with Dr. Aguilera for sleep apnea. They might be able to treat the fatigue. Also consider rule out narcolepsy documented in this encounterEast [facility] Hospital06-24-2022 History of Present illness Narrative* Keren Arce MD - 08/10/2021 5:15 PM EDT This note was created using [facility]. Subjective Destiney Ocampo is a 71 year old male. HISTORY Destiney Ocampo is a 71 year old gentleman here to be formally established with me. Has CAD but area of blockage cannot be treated with stent since in a kink. So treating medically. No angina but still palpitations. Untreated RAJI. because did not tolerate CPAP. Fatigue did not get better. Did see Dr. Palafox. And also another provider. Falls asleep easily. Depression ongoing. Metoprolol dose had to be decreased from BID because made him too tired. Needs nap in the afternoon. Working on weight loss. Smaller portions. Sees eye doctor routinely. Only needs reading glasses. PAST MEDICAL HISTORY Diagnosis Date Abdominal pain, other specified site Benign neoplasm of colon Diaphragmatic hernia without mention of obstruction or gangrene Diplopia 11/06/2017 Diverticulosis of colon (without mention of hemorrhage) Diverticulosis Dysthymic disorder Depression (non-psychotic) RAJI (obstructive sleep apnea) Pure hypercholesterolemia Current Outpatient Medications Medication Sig aspirin 81 mg chewable tablet Take 81 mg by mouth. ENTRESTO 24-26 mg tablet Take 1 tablet by mouth twice daily. omeprazole (PRILOSEC) 20 mg capsule Take 1 capsule by mouth twice daily. metFORMIN ER (GLUCOPHAGE XR) 500 mg 24 hr tablet Take 1 tablet by mouth daily with breakfast AND 2 tablets daily with dinner. venlafaxine ER (EFFEXOR XR) 75 mg 24 hr capsule Take 1 capsule by mouth daily at bedtime. metoprolol tartrate, short acting, (LOPRESSOR) 25 mg tablet Take 0.5 tablets by mouth twice daily. (Patient taking differently: Take 50 mg by mouth once daily. ) carbamide peroxide (DEBROX) 6.5 % otic solution Use 5 Drops in both ears twice daily. COMPOUNDED PRESCRIPTION Generic Glucometer - I each 50 strips and lancets. Re: Diabetes mellitus controlled with hypoglycemia. Lancets lancets Test blood sugar(s) 1-2 times daily or as directed. Dx: Type 2 DM - Controlled E11.9 Insulin: No blood sugar diagnostic (BLOOD GLUCOSE TEST) test strip Test blood sugar(s) 1-2 times daily or as directed. Dx: Type 2 DM - Controlled E11.9 Insulin: No Blood-Glucose Meter monitoring kit Glucose Meter of Choice (per insurance coverage)- Kit - Dx: Type2 DM - Controlled E11.9, Test 1-2 times a day or as directed. No insulin DOCUSATE CALCIUM (STOOL SOFTENER ORAL) Take by mouth as needed. Polyethylene Glycol 3350 (MIRALAX) 17 gram/dose ORAL powder Take by mouth. use as directed atorvastatin (LIPITOR) 40 mg tablet TAKE 1 TABLET BY MOUTH EVERY DAY FOR 90 DAYS meloxicam (MOBIC) 15 mg tablet Take 1 tablet by mouth once daily. (Patient not taking: Reported on 08/10/2021 ) diphenhydrAMINE (BENADRYL) 25 mg capsule Take 2 capsules by mouth every 6 hours as needed. (Patientnot taking: Reported on 08/10/2021 ) losartan (COZAAR) 100 mg tablet Take 1 tablet by mouth once daily. (Patient not taking: Reported on08/10/2021 ) simvastatin (ZOCOR) 20 mg tablet Take 1 tablet by mouth daily at bedtime. (Patient not taking: Reported on 08/10/2021 ) No current facility-administered medications for this visit. ALLERGIES Allergen Reactions Lisinopril Cough PAST SURGICAL HISTORY Procedure Laterality Date COLONOS W/REM POLYP SNARE 04/24/07 Diverticulosis and prox. sigmoid polyp COLONOSCOP W/ OR W/O [facility] SPEC Colonoscopy COLONOSCOP W/ OR W/O [facility] SPEC 01/18/2011 Colonoscopy EGD W/O [facility] SPECIMEN W/BX 04/24/07 HH, esophagitis,gastritis EGD W/O OR W/BRUSH/WASH 10/30/2012 EGD FRAGMENTING/KIDNEY STONE Lithotripsy HEART CATHETERIZATION 2012 FAMILY HISTORY Problem Relation Age of Onset Psychiatry Father suicide age 44 Diabetes Mother COPD Mother Social History Tobacco Use Smoking status: Former Smoker Packs/day: 1.00 Years: 30.00 Pack years: 30.00 Types: Cigarettes Quit date: 12/18/2004 Years since quittin.6 Smokeless tobacco: Former User Tobacco comment: less than 1/2 pack daily Substance Use Topics Alcohol use: Yes Comment: rarely beer Drug use: No Review of Systems Objective BP 118/72 Pulse 80 Wt 98 kg (216 lb) SpO2 97% BMI 33.83 kg/m Last 5 Encounter Wt Readings: Date: Wt: 08/10/2021 98 kg (216 lb) 01/01/2021 101.6 kg (224 lb) 08/17/2020 99.8 kg (220 lb) 06/26/2020 100.2 kg (221 lb) 12/02/2019 102.5 kg (226 lb) No waist measurement recorded Estimated body mass index is 33.83 kg/m as calculated from the following: Height as of 06/26/20: 170.2 cm (5' 7). Weight as of this encounter: 98 kg (216 lb). Last 5 Encounter BP Readings: Date: BP: 08/10/2021 118/72 01/01/2021 148/74 08/23/2020 122/78 08/17/2020 112/64 07/03/2020 140/82 Physical Exam Vitals reviewed. Constitutional: Appearance: Normal appearance. HENT: Head: Normocephalic. Right Ear: Tympanic membrane, ear canal and external ear normal. Left Ear: Tympanic membrane, ear canal and external ear normal. Mouth/Throat: Mouth: Mucous membranes are moist. Pharynx: Oropharynx is clear. Eyes: Extraocular Movements: Extraocular movements intact. Conjunctiva/sclera: Conjunctivae normal. Cardiovascular: Rate and Rhythm: Normal rate and regular rhythm. Pulses: Normal pulses. Heart sounds: Normal heart sounds. Pulmonary: Effort: Pulmonary effort is normal. Breath sounds: Normal breath sounds. Abdominal: General: Abdomen is flat. There is no distension. Palpations: Abdomen is soft. There is no mass. Musculoskeletal: Cervical back: Normal range of motion. Skin: General: Skin is warm and dry. Neurological: General: No focal deficit present. Mental Status: He is alert and oriented to person, place, and time. Psychiatric: Attention and Perception: Attention and perception normal. Mood and Affect: Mood and affect normal. Speech: Speech normal. Behavior: Behavior normal. Thought Content: Thought content normal. Cognition and Memory: Cognition and memory normal. Judgment: Judgment normal. Hemoglobin A1C (%) Date Value 08/02/2021 7.1 10/11/2020 7.5 02/11/2018 6.2 09/04/2017 6.2 05/09/2017 6.9 01/07/2017 6.0 Hemoglobin A1C (POCT) (%) Date Value 06/26/2020 7.0 02/24/2019 7.1 11/19/2018 7.4 Had CBC abd BMP and magnesium and TSH done at [facility] 12/30/2020June had BMP February also had labs Assessment and Plan ASSESSMENT/PLAN: 1. Controlled type 2 diabetes mellitus without complication, without long-term current use of insulin (HCC) - ICD9: 250.00, ICD10: E11.9 (primary diagnosis) Controlled. - Continue current medications - Encouraged regular aerobic exercise and weight loss - Needs to keep working on diet and exercise with lifestyle changes for effective weight loss as well as control of DM, and control of BP and lipids. - COMP METABOLIC PANEL - CBC - HGB A1C - ALBUMIN/CREAT RATIO RND UR - LIPID PANEL BASIC 2. PVC's (premature ventricular contractions) - ICD9: 427.69, ICD10: I49.3 Continue present management. 3. Primary hypertension - ICD9: 401.9, ICD10: I10 - good control - Continue current medication(s) - Recommended regular aerobic exercise. - Recommend home blood pressure monitoring, to bring results in on next visit - Goal of BP <130/80 - COMP METABOLIC PANEL - CBC 4. Pure hypercholesterolemia - ICD9: 272.0, ICD10: E78.00 To be determined. Further evaluation and treatment as indicated. - LIPID PANEL BASIC 5. Coronary artery 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 angina pectoris- ICD9: 414.01, ICD10: I25.10 Medical management as discussed. Further evaluation and treatment as indicated. Keren Arce MD [facility] Miscellaneous Notes* Telephone Encounter - Sherry Bryan LPN - 07/04/2021 2:14 PM EDT Pt's Pat calling for refill. MARQUISE: 01/01/21 NOV: 08/10/21 Last Refill: 06/26/20 #180 3 refills Sherry Bryan LPN documented in [facility] encounter[facility] Evaluation + Plan note Future Scheduled Tests Laboratory* Basic Metabolic Panel 06/18/21 * Basic Metabolic Panel 02/19/21 * Complete Blood Count 02/19/21 [facility] 2022 Hospital Discharge instructions Patient Education 03/01/2021 09:37:37 3- Heart Cath/PCI radial (11/2017) (CUSTOM) HEART CATHETERIZATION/PCI (radial) Discharge Instructions DIET Drink plenty of fluids for the next 48 hours to help your kidneys flush the heart cath dye out of your system ACTIVITY For the next 48 hours: Do not deep bend the wrist Do not lift, push, or pull anything over 5 pounds Do not use the hand/arm to support your weight when rising from a chair or bed Do not drive For the next 7 days: Do not submerse your procedure site in water Do not swim, wash dishes, or take tub baths You may write, eat, type, and shower WOUND CARE You may remove the gauze on your right wrist tomorrow at 10:45am and place a Band-aid. Keep a Band-Aid on your procedure site for the next 3-4 days Change the Band-Aid daily or if it gets wet/soiled AFTER YOU GO HOME, CALL YOUR DOCTOR FOR: Any increase in bruising or tenderness from the procedure site Any redness, pus, or other signs of infection at the site A temperature above 100.5 Severe pain at the site DIAL 911 AND RETURN TO THE HOSPITAL FOR: Any bleeding from the procedure site. The site may be bruised or tender, but it should not be bleeding at any time. If your site begins to bleed, hold firm pressure on it and dial 911 to return to the hospital Any increase in swelling at the procedure site. An increase in swelling could mean the area is bleeding under the skin. Hold firm pressure to the site and dial 911 to return to the hospital Document Released: 02/03/2006 Document Revised: 01/20/2013 Document Reviewed: 02/04/2014 ExitCare Patient Information 2015 [employer]. This information is not intended to replace advicegiven to you by your health care provider. Make sure you discuss any questions you have with your health care provider. 03/01/2021 08:39:32 Moderate Conscious Sedation, Adult, Care After Moderate Conscious Sedation, Adult, Care After These instructions provide you with information about caring for yourself after your procedure. Your health care provider may also give you more specific instructions. Your treatment has been plannedaccording to current medical practices, but problems sometimes occur. Call your health care provider if you have any problems or questions after your procedure. What can I expect after the procedure? After your procedure, it is common: To feel sleepy for several hours. To feel clumsy and have poor balance for several hours. To have poor judgment for several hours. To vomit if you eat too soon. Follow these instructions at home: For at least 24 hours after the procedure: Do not: ?Participate in activities where you could fall or become injured. ?Drive. ?Use heavy machinery. ?Drink alcohol. ?Take sleeping pills or medicines that cause drowsiness. ?Make important decisions or sign legal documents. ?Take care of children on your own. Rest. Eating and drinking Follow the diet recommended by your health care provider. If you vomit: ?Drink water, juice, or soup when you can drink without vomiting. ?Make sure you have little or no nausea before eating solid foods. General instructions Have a responsible adult stay with you until you are awake and alert. Take [id number] and prescription medicines only as told by your health care provider. If you smoke, do not smoke without supervision. Keep all follow-up visits as told by your health care provider. This is important. Contact a health care provider if: You keep feeling nauseous or you keep vomiting. You feel light-headed. You develop a rash. You have a fever. Get help right away if: You have trouble breathing. This information is not intended to replace advice given to you by your health care provider. Make sure you discuss any questions you have with your health care provider. Document Released: 11/24/2013 Document Revised: 01/16/2018 Document Reviewed: 05/25/2016 [employer] Patient Education 2020 [employer]. Follow Up Care 02/19/2021 10:50:57 With:BERNY WALTERS MD Address: [address] [place] [address] 5&6 [facility] [place] [address]- [phone] When:04/16/2021 11:00:00 [facility] 11-18-2021 Miscellaneous Notes* Telephone Encounter - Edith Escalera APRN.CNP - 01/04/2021 1:09 PM EST The following approved medication requests have been transmitted electronically. Pending Prescriptions Disp Refills VENLAFAXINE ER 75 MG CAPSULE,EXTENDED RELEASE 24 HR 30 capsule 3 Sig: Take 1 capsule by mouth daily at bedtime. EDUIN: No MELOXICAM 15 MG TABLET 90 tablet 0 Sig: Take 1 tablet by mouth once daily. EDUIN: No METFORMIN ER 500 MG TABLET,EXTENDED RELEASE 24 HR 90 tablet 3 Sig: Take 1 tablet by mouth daily with breakfast AND 2 tablets daily with dinner. EDUIN: No Edith Escalera APRN.CNP * Telephone Encounter - Leigh Casillas RN - 01/04/2021 10:53 AM EST Patient has been identified by name and date of : Yes Spouse phones for refill(s): Pending Prescriptions Disp Refills VENLAFAXINE ER 75 MG CAPSULE,EXTENDED RELEASE 24 HR 30 capsule 3 Sig: Take 1 capsule by mouth daily at bedtime. EDUIN: No MELOXICAM 15 MG TABLET 90 tablet 0 Sig: Take 1 tablet by mouth once daily. EDUIN: No METFORMIN ER 500 MG TABLET,EXTENDED RELEASE 24 HR 90 tablet 3 Sig: Take 1 tablet by mouth daily with breakfast AND 2 tablets daily with dinner. EDUIN: No Date of last office visit with pcp: 01-01-21. Next appt: 01-25-21 Last 2 Encounter Wt Readings: Date: Wt: 01/01/2021 101.6 kg (224 lb) 08/17/2020 99.8 kg (220 lb) Previous labs/tests for medication: Diabetes: Hemoglobin A1C (%) Date Value 10/11/2020 7.5 02/11/2018 6.2 Hemoglobin A1C (POCT) (%) Date Value 06/26/2020 7.0 02/24/2019 7.1 Blood Pressure: BUN (mg/dL) Date Value 10/11/2020 15 Sodium (mmol/L) Date Value 10/11/2020 141 Last 1 Encounter BP Readings: Date: BP: 01/01/2021 148/74 Liver Function: ALT (U/L) Date Value 10/11/2020 35 AST (U/L) Date Value 10/11/2020 35 Please advise. Thank you. Leigh Casillas RN documented in [facility] encounter[facility]05-[facility] History of Present illness Narrative* Rosalind Clayton RT(R) - 06/26/2020 11:20 AM EDT Radiology Service Progress Note PATIENT NAME: Destiney Ocampo DATE OF SERVICE: June 26, 2020 TIME: 11:30 AM PATIENT IDENTITY VERIFICATION COMPLETED USING TWO (2) IDENTIFIERS: Name and Date of confirmedby patient verbally. FALL SCREENING: Has the patient had 2 falls in the last year or 1 fall with injury or currently using an Ambulatory Assistive Device (Walker, Cane, Wheelchair, Crutches, etc.)? No PATIENT GENDER DATA: Male PATIENT RELEVANT IMPLANT DATA REVIEWED: Not Applicable RADIOLOGY DEPARTMENT: General X-ray: Exam(s) Completed: Pelvis X-Ray: Pelvis with Hip Bilateral PERIPHERAL IV DATA: Not applicable SIGNED BY: RT Tomasa(R) June 26, 2020 11:30 AM documented in this encounterEast [facility]10-[facility] History of Present illness Narrative* Elisabet KohlerRt)Kevin - 12/02/2019 11:50 AM EDT Radiology Service Progress Note PATIENT NAME: Destiney Ocampo DATE OF SERVICE: December 02, 2019 TIME: 11:47 AM PATIENT IDENTITY VERIFICATION COMPLETED USING TWO (2) IDENTIFIERS: Name and Date of confirmedby patient verbally. FALL SCREENING: Has the patient had 2 falls in the last year or 1 fall with injury or currently using an Ambulatory Assistive Device (Walker, Cane, Wheelchair, Crutches, etc.)? No PATIENT GENDER DATA: Male PATIENT RELEVANT IMPLANT DATA REVIEWED: Yes RADIOLOGY DEPARTMENT: General X-ray: Exam(s) Completed: Chest X-Ray PERIPHERAL IV DATA: Not applicable SIGNED BY: RT Jens December 02, 2019 11:47 AM documented in this encounterEast [facility]05-02-[facility] History of Past illness Narrative* Problem Noted Date Resolved Date Malaise and fatigue 06/18/2017 01/03/2021 H/O concussion 06/18/2017 08/26/2019 Neck pain on left side 09/01/2014 Trigger middle finger of right hand 08/29/2011 01/03/2021 Trigger index finger of right hand 08/29/2011 07/16/2016 Last Assessment & Plan: GASTRITIS ANTRAL( W/O Hemorrhage) 04/24/2007 11/21/2014 HEMORRHOIDS INTERNAL 04/24/2007 11/21/2014 Abdominal pain, other specified site 12/17/2006 11/21/2014 SOMNOLENCE 01/17/2006 01/03/2021 Overview: He refuses to get the sleep study done Last Assessment & Plan: He refuses to get the sleep study done Headache(784.0) 01/17/2006 11/21/2014 Dysthymic disorder 01/03/2021 Overview: Depression (non-psychotic) documented as of this encounter (statuses as of 06/13/2021) [facility] of Past illness Narrative* Problem Noted Date Resolved Date Malaise and fatigue 06/18/2017 01/03/2021 H/O concussion 06/18/2017 08/26/2019 Neck pain on left side 09/01/2014 1 Trigger middle finger of right hand 08/29/2011 01/03/2021 Trigger index finger of right hand 08/29/2011 07/16/2016 Last Assessment & Plan: GASTRITIS ANTRAL( W/O Hemorrhage) 04/24/2007 11/21/2014 HEMORRHOIDS INTERNAL 04/24/2007 11/21/2014 Abdominal pain, other specified site 12/17/2006 11/21/2014 SOMNOLENCE 01/17/2006 01/03/2021 Overview: He refuses to get the sleep study done Last Assessment & Plan: He refuses to get the sleep study done Headache(784.0) 01/17/2006 11/21/2014 Dysthymic disorder 01/03/2021 Overview: Depression (non-psychotic) documented as of this encounter (statuses as of 07/04/2021) [facility] of Past illness Narrative* Problem Noted Date Resolved Date Malaise and fatigue 06/18/2017 01/03/2021 H/O concussion 06/18/2017 08/26/2019 Neck pain on left side 09/01/2014 1 Trigger middle finger of right hand 08/29/2011 01/03/2021 Trigger index finger of right hand 08/29/2011 07/16/2016 Last Assessment & Plan: GASTRITIS ANTRAL( W/O Hemorrhage) 04/24/2007 11/21/2014 HEMORRHOIDS INTERNAL 04/24/2007 11/21/2014 Abdominal pain, other specified site 12/17/2006 11/21/2014 SOMNOLENCE 01/17/2006 01/03/2021 Overview: He refuses to get the sleep study done Last Assessment & Plan: He refuses to get the sleep study done Headache(784.0) 01/17/2006 11/21/2014 Dysthymic disorder 01/03/2021 Overview: Depression (non-psychotic) documented as of this encounter (statuses as of 10/14/2021) [facility] of [facility] illness Narrative* Problem Noted Date Resolved Date Malaise and fatigue 06/18/2017 01/03/2021 H/O concussion 06/18/2017 08/26/2019 Neck pain on left side 09/01/2014 Trigger middle finger of right hand 08/29/2011 01/03/2021 Trigger index finger of right hand 08/29/2011 07/16/2016 Last Assessment & Plan: GASTRITIS ANTRAL( W/O Hemorrhage) 04/24/2007 11/21/2014 HEMORRHOIDS INTERNAL 04/24/2007 11/21/2014 Abdominal pain, other specified site 12/17/2006 11/21/2014 SOMNOLENCE 01/17/2006 01/03/2021 Overview: He refuses to get the sleep study done Last Assessment & Plan: He refuses to get the sleep study done Headache(784.0) 01/17/2006 11/21/2014 Dysthymic disorder 01/03/2021 Overview: Depression (non-psychotic) documented as of this encounter (statuses as of 11/10/2021) [facility] of [facility] illness Narrative* Problem Noted Date Resolved Date Malaise and fatigue 06/18/2017 01/03/2021 H/O concussion 06/18/2017 08/26/2019 Neck pain on left side 09/01/2014 1 Trigger middle finger of right hand 08/29/2011 01/03/2021 Trigger index finger of right hand 08/29/2011 07/16/2016 Last Assessment & Plan: GASTRITIS ANTRAL( W/O Hemorrhage) 04/24/2007 11/21/2014 HEMORRHOIDS INTERNAL 04/24/2007 11/21/2014 Abdominal pain, other specified site 12/17/2006 11/21/2014 SOMNOLENCE 01/17/2006 01/03/2021 Overview: He refuses to get the sleep study done Last Assessment & Plan: He refuses to get the sleep study done Headache(784.0) 01/17/2006 11/21/2014 Dysthymic disorder 01/03/2021 Overview: Depression (non-psychotic) documented as of this encounter (statuses as of 11/20/2021) [facility] of [facility] illness Narrative* Problem Noted Date Resolved Date Malaise and fatigue 06/18/2017 01/03/2021 H/O concussion 06/18/2017 08/26/2019 Neck pain on left side 09/01/2014 1 Trigger middle finger of right hand 08/29/2011 01/03/2021 Trigger index finger of right hand 08/29/2011 07/16/2016 Last Assessment & Plan: GASTRITIS ANTRAL( W/O Hemorrhage) 04/24/2007 11/21/2014 HEMORRHOIDS INTERNAL 04/24/2007 11/21/2014 Abdominal pain, other specified site 12/17/2006 11/21/2014 SOMNOLENCE 01/17/2006 01/03/2021 Overview: He refuses to get the sleep study done Last Assessment & Plan: He refuses to get the sleep study done Headache(784.0) 01/17/2006 11/21/2014 Dysthymic disorder 01/03/2021 Overview: Depression (non-psychotic) documented as of this encounter (statuses as of 11/30/2021) [facility] of [facility] illness Narrative* Problem Noted Date Resolved Date Malaise and fatigue 06/18/2017 01/03/2021 H/O concussion 06/18/2017 08/26/2019 Neck pain on left side 09/01/2014 1 Trigger middle finger of right hand 08/29/2011 01/03/2021 Trigger index finger of right hand 08/29/2011 07/16/2016 Last Assessment & Plan: GASTRITIS ANTRAL( W/O Hemorrhage) 04/24/2007 11/21/2014 HEMORRHOIDS INTERNAL 04/24/2007 11/21/2014 Abdominal pain, other specified site 12/17/2006 11/21/2014 SOMNOLENCE 01/17/2006 01/03/2021 Overview: He refuses to get the sleep study done Last Assessment & Plan: He refuses to get the sleep study done Headache(784.0) 01/17/2006 11/21/2014 Dysthymic disorder 01/03/2021 Overview: Depression (non-psychotic) documented as of this encounter (statuses as of 12/03/2021) [facility] illness Narrative* Problem Noted Date Resolved Date Malaise and fatigue 06/18/2017 01/03/2021 H/O concussion 06/18/2017 08/26/2019 Neck pain on left side 09/01/2014 1 Trigger middle finger of right hand 08/29/2011 01/03/2021 Trigger index finger of right hand 08/29/2011 07/16/2016 Last Assessment & Plan: GASTRITIS ANTRAL( W/O Hemorrhage) 04/24/2007 11/21/2014 HEMORRHOIDS INTERNAL 04/24/2007 11/21/2014 Abdominal pain, other specified site 12/17/2006 11/21/2014 SOMNOLENCE 01/17/2006 01/03/2021 Overview: He refuses to get the sleep study done Last Assessment & Plan: He refuses to get the sleep study done Headache(784.0) 01/17/2006 11/21/2014 Dysthymic disorder 01/03/2021 Overview: Depression (non-psychotic) documented as of this encounter (statuses as of 03/16/2022) [facility] Narrative* Problem Noted Date Resolved Date Malaise and fatigue 06/18/2017 01/03/2021 H/O concussion 06/18/2017 08/26/2019 Neck pain on left side 09/01/2014 1 Trigger middle finger of right hand 08/29/2011 01/03/2021 Trigger index finger of right hand 08/29/2011 07/16/2016 Last Assessment & Plan: GASTRITIS ANTRAL( W/O Hemorrhage) 04/24/2007 11/21/2014 HEMORRHOIDS INTERNAL 04/24/2007 11/21/2014 Abdominal pain, other specified site 12/17/2006 11/21/2014 SOMNOLENCE 01/17/2006 01/03/2021 Overview: He refuses to get the sleep study done Last Assessment & Plan: He refuses to get the sleep study done Headache(784.0) 01/17/2006 11/21/2014 Dysthymic disorder 01/03/2021 Overview: Depression (non-psychotic) documented as of this encounter (statuses as of 04/29/2022) [facility] Narrative* Problem Noted Date Resolved Date Malaise and fatigue 06/18/2017 01/03/2021 H/O concussion 06/18/2017 08/26/2019 Neck pain on left side 09/01/2014 1 Trigger middle finger of right hand 08/29/2011 01/03/2021 Trigger index finger of right hand 08/29/2011 07/16/2016 Last Assessment & Plan: GASTRITIS ANTRAL( W/O Hemorrhage) 04/24/2007 11/21/2014 HEMORRHOIDS INTERNAL 04/24/2007 11/21/2014 Abdominal pain, other specified site 12/17/2006 11/21/2014 SOMNOLENCE 01/17/2006 01/03/2021 Overview: He refuses to get the sleep study done Last Assessment & Plan: He refuses to get the sleep study done Headache(784.0) 01/17/2006 11/21/2014 Dysthymic disorder 01/03/2021 Overview: Depression (non-psychotic) documented as of this encounter (statuses as of 05/09/2022) [facility] Narrative* Problem Noted Date Resolved Date Malaise and fatigue 06/18/2017 01/03/2021 H/O concussion 06/18/2017 08/26/2019 Neck pain on left side 09/01/2014 Trigger middle finger of right hand 08/29/2011 01/03/2021 Trigger index finger of right hand 08/29/2011 07/16/2016 Last Assessment & Plan: GASTRITIS ANTRAL( W/O Hemorrhage) 04/24/2007 11/21/2014 HEMORRHOIDS INTERNAL 04/24/2007 11/21/2014 Abdominal pain, other specified site 12/17/2006 11/21/2014 SOMNOLENCE 01/17/2006 01/03/2021 Overview: He refuses to get the sleep study done Last Assessment & Plan: He refuses to get the sleep study done Headache(784.0) 01/17/2006 11/21/2014 Dysthymic disorder 01/03/2021 Overview: Depression (non-psychotic) documented as of this encounter (statuses as of 05/31/2022) [facility] Narrative* Problem Noted Date Resolved Date Malaise and fatigue 06/18/2017 01/03/2021 H/O concussion 06/18/2017 08/26/2019 Neck pain on left side 09/01/2014 1 Trigger middle finger of right hand 08/29/2011 01/03/2021 Trigger index finger of right hand 08/29/2011 07/16/2016 Last Assessment & Plan: GASTRITIS ANTRAL( W/O Hemorrhage) 04/24/2007 11/21/2014 HEMORRHOIDS INTERNAL 04/24/2007 11/21/2014 Abdominal pain, other specified site 12/17/2006 11/21/2014 SOMNOLENCE 01/17/2006 01/03/2021 Overview: He refuses to get the sleep study done Last Assessment & Plan: He refuses to get the sleep study done Headache(784.0) 01/17/2006 11/21/2014 Dysthymic disorder 01/03/2021 Overview: Depression (non-psychotic) documented as of this encounter (statuses as of 06/28/2022) [facility] Narrative* Problem Noted Date Resolved Date Malaise and fatigue 06/18/2017 01/03/2021 H/O concussion 06/18/2017 08/26/2019 Neck pain on left side 09/01/2014 1 Trigger middle finger of right hand 08/29/2011 01/03/2021 Trigger index finger of right hand 08/29/2011 07/16/2016 Last Assessment & Plan: GASTRITIS ANTRAL( W/O Hemorrhage) 04/24/2007 11/21/2014 HEMORRHOIDS INTERNAL 04/24/2007 11/21/2014 Abdominal pain, other specified site 12/17/2006 11/21/2014 SOMNOLENCE 01/17/2006 01/03/2021 Overview: He refuses to get the sleep study done Last Assessment & Plan: He refuses to get the sleep study done Headache(784.0) 01/17/2006 11/21/2014 Dysthymic disorder 01/03/2021 Overview: Depression (non-psychotic) documented as of this encounter (statuses as of 07/26/2022) [facility] Narrative* Problem Noted Date Diagnosed Date Resolved Date Malaise and fatigue 06/18/2017 01/04/20 21 H/O concussion 06/18/2017 08/26/2019 Neck pain on left side 09/01/201401/03 Trigger middle finger of right hand 08/29/2011 01/03/2021 Trigger index finger of right hand 08/29/2011 07/16/2016 Last Assessment & Plan: GASTRITIS ANTRAL( W/O Hemorrhage) 04/24/2007 11/21/2014 HEMORRHOIDS INTERNAL 04/24/2007 015 Abdominal pain, other specified site 12/17/2006 11/21/2014 SOMNOLENCE 01/17/2006 01/03/2021 Overview: He refuses to get the sleep study done Last Assessment & Plan: He refuses to get the sleep study done Headache(784.0) 01/17/2006 11/21/2014 Dysthymic disorder Overview: Depression (non-psychotic) documented as of this encounter (statuses as of 10/02/2022) [facility] Narrative* Problem Noted Date Diagnosed Date Resolved Date Malaise and fatigue 06/18/2017 01/04/20 21 H/O concussion 06/18/2017 08/26/2019 Neck pain on left side 09/01/201401/03 Trigger middle finger of right hand 08/29/2011 01/03/2021 Trigger index finger of right hand 08/29/2011 07/16/2016 Last Assessment & Plan: GASTRITIS ANTRAL( W/O Hemorrhage) 04/24/2007 11/21/2014 HEMORRHOIDS INTERNAL 04/24/2007 015 Abdominal pain, other specified site 12/17/2006 11/21/2014 SOMNOLENCE 01/17/2006 01/03/2021 Overview: He refuses to get the sleep study done Last Assessment & Plan: He refuses to get the sleep study done Headache(784.0) 01/17/2006 11/21/2014 Dysthymic disorder Overview: Depression (non-psychotic) documented as of this encounter (statuses as of 11/04/2022) [facility] Narrative* Problem Noted Date Diagnosed Date Resolved Date Malaise and fatigue 06/18/2017 01/04/20 21 H/O concussion 06/18/2017 08/26/2019 Neck pain on left side 09/01/201401/03 Trigger middle finger of right hand 08/29/2011 01/03/2021 Trigger index finger of right hand 08/29/2011 07/16/2016 Last Assessment & Plan: GASTRITIS ANTRAL( W/O Hemorrhage) 04/24/2007 11/21/2014 HEMORRHOIDS INTERNAL 04/24/2007 015 Abdominal pain, other specified site 12/17/2006 11/21/2014 SOMNOLENCE 01/17/2006 01/03/2021 Overview: He refuses to get the sleep study done Last Assessment & Plan: He refuses to get the sleep study done Headache(784.0) 01/17/2006 11/21/2014 Dysthymic disorder Overview: Depression (non-psychotic) documented as of this encounter (statuses as of 01/14/2023) [facility] Narrative* Problem Noted Date Diagnosed Date Resolved Date Malaise and fatigue 06/18/2017 01/04/20 21 H/O concussion 06/18/2017 08/26/2019 Neck pain on left side 09/01/201401/03 Trigger middle finger of right hand 08/29/2011 01/03/2021 Trigger index finger of right hand 08/29/2011 07/16/2016 Last Assessment & Plan: GASTRITIS ANTRAL( W/O Hemorrhage) 04/24/2007 11/21/2014 HEMORRHOIDS INTERNAL 04/24/2007 015 Abdominal pain, other specified site 12/17/2006 11/21/2014 SOMNOLENCE 01/17/2006 01/03/2021 Overview: He refuses to get the sleep study done Last Assessment & Plan: He refuses to get the sleep study done Headache(784.0) 01/17/2006 11/21/2014 Dysthymic disorder Overview: Depression (non-psychotic) documented as of this encounter (statuses as of 03/27/2023) [facility]05-02-2018 History of Past illness Narrative* Problem Noted Date Diagnosed Date Resolved Date Malaise and fatigue 06/18/2017 01/04/20 21 H/O concussion 06/18/2017 08/26/2019 Neck pain on left side 09/01/201401/03 Trigger middle finger of right hand 08/29/2011 01/03/2021 Trigger index finger of right hand 08/29/2011 07/16/2016 Last Assessment & Plan: GASTRITIS ANTRAL( W/O Hemorrhage) 04/24/2007 11/21/2014 HEMORRHOIDS INTERNAL 04/24/2007 015 Abdominal pain, other specified site 12/17/2006 11/21/2014 SOMNOLENCE 01/17/2006 01/03/2021 Overview: He refuses to get the sleep study done Last Assessment & Plan: He refuses to get the sleep study done Headache(784.0) 01/17/2006 11/21/2014 Dysthymic disorder Overview: Depression (non-psychotic) documented as of this encounter (statuses as of 03/30/2023) [facility]05-02-2018 History of Past illness Narrative* Problem Noted Date Diagnosed Date Resolved Date Malaise and fatigue 06/18/2017 01/04/20 21 H/O concussion 06/18/2017 08/26/2019 Neck pain on left side 09/01/201401/03 Trigger middle finger of right hand 08/29/2011 01/03/2021 Trigger index finger of right hand 08/29/2011 07/16/2016 Last Assessment & Plan: GASTRITIS ANTRAL( W/O Hemorrhage) 04/24/2007 11/21/2014 HEMORRHOIDS INTERNAL 04/24/2007 015 Abdominal pain, other specified site 12/17/2006 11/21/2014 SOMNOLENCE 01/17/2006 01/03/2021 Overview: He refuses to get the sleep study done Last Assessment & Plan: He refuses to get the sleep study done Headache(784.0) 01/17/2006 11/21/2014 Dysthymic disorder Overview: Depression (non-psychotic) documented as of this encounter (statuses as of 04/03/2023) [facility]05-02-2018 History of Past illness Narrative* Problem Noted Date Diagnosed Date Resolved Date Malaise and fatigue 06/18/2017 01/04/20 21 H/O concussion 06/18/2017 08/26/2019 Neck pain on left side 09/01/201401/03 Trigger middle finger of right hand 08/29/2011 01/03/2021 Trigger index finger of right hand 08/29/2011 07/16/2016 Last Assessment & Plan: GASTRITIS ANTRAL( W/O Hemorrhage) 04/24/2007 11/21/2014 HEMORRHOIDS INTERNAL 04/24/2007 015 Abdominal pain, other specified site 12/17/2006 11/21/2014 SOMNOLENCE 01/17/2006 01/03/2021 Overview: He refuses to get the sleep study done Last Assessment & Plan: He refuses to get the sleep study done Headache(784.0) 01/17/2006 11/21/2014 Dysthymic disorder Overview: Depression (non-psychotic) documented as of this encounter (statuses as of 04/09/2023) [facility]05-[facility]-2018 History of Past illness Narrative* Problem Noted Date Diagnosed Date Resolved Date Malaise and fatigue 06/18/2017 01/04/20 21 H/O concussion 06/18/2017 08/26/2019 Neck pain on left side 09/01/201401/03 Trigger middle finger of right hand 08/29/2011 01/03/2021 Trigger index finger of right hand 08/29/2011 07/16/2016 Last Assessment & Plan: GASTRITIS ANTRAL( W/O Hemorrhage) 04/24/2007 11/21/2014 HEMORRHOIDS INTERNAL 04/24/2007 015 Abdominal pain, other specified site 12/17/2006 11/21/2014 SOMNOLENCE 01/17/2006 01/03/2021 Overview: He refuses to get the sleep study done Last Assessment & Plan: He refuses to get the sleep study done Headache(784.0) 01/17/2006 11/21/2014 Dysthymic disorder Overview: Depression (non-psychotic) documented as of this encounter (statuses as of 04/17/2023) [facility]05-02-2018 History of Past illness Narrative* Problem Noted Date Diagnosed Date Resolved Date Malaise and fatigue 06/18/2017 01/04/20 21 H/O concussion 06/18/2017 08/26/2019 Neck pain on left side 09/01/201401/03 Trigger middle finger of right hand 08/29/2011 01/03/2021 Trigger index finger of right hand 08/29/2011 07/16/2016 Last Assessment & Plan: GASTRITIS ANTRAL( W/O Hemorrhage) 04/24/2007 11/21/2014 HEMORRHOIDS INTERNAL 04/24/2007 015 Abdominal pain, other specified site 12/17/2006 11/21/2014 SOMNOLENCE 01/17/2006 01/03/2021 Overview: He refuses to get the sleep study done Last Assessment & Plan: He refuses to get the sleep study done Headache(784.0) 01/17/2006 11/21/2014 Dysthymic disorder Overview: Depression (non-psychotic) documented as of this encounter (statuses as of 05/07/2023) [facility]05-02-2018 History of Past illness Narrative* Problem Noted Date Diagnosed Date Resolved Date Malaise and fatigue 06/18/2017 01/04/20 21 H/O concussion 06/18/2017 08/26/2019 Neck pain on left side 09/01/201401/03 Trigger middle finger of right hand 08/29/2011 01/03/2021 Trigger index finger of right hand 08/29/2011 07/16/2016 Last Assessment & Plan: GASTRITIS ANTRAL( W/O Hemorrhage) 04/24/2007 11/21/2014 HEMORRHOIDS INTERNAL 04/24/2007 015 Abdominal pain, other specified site 12/17/2006 11/21/2014 SOMNOLENCE 01/17/2006 01/03/2021 Overview: He refuses to get the sleep study done Last Assessment & Plan: He refuses to get the sleep study done Headache(784.0) 01/17/2006 11/21/2014 Dysthymic disorder Overview: Depression (non-psychotic) documented as of this encounter (statuses as of 05/22/2023) [address]02-2018 History of Past illness Narrative* Problem Noted Date Diagnosed Date Resolved Date Malaise and fatigue 06/18/2017 01/04/20 21 H/O concussion 06/18/2017 08/26/2019 Neck pain on left side 09/01/201401/03 Trigger middle finger of right hand 08/29/2011 01/03/2021 Trigger index finger of right hand 08/29/2011 07/16/2016 Last Assessment & Plan: GASTRITIS ANTRAL( W/O Hemorrhage) 04/24/2007 11/21/2014 HEMORRHOIDS INTERNAL 04/24/2007 015 Abdominal pain, other specified site 12/17/2006 11/21/2014 DEPRESSION RECURRENT( Moderate) 01/17/2006 05/22/2023 Last Assessment & Plan: He has been feeling more tired, the sleep machine did not change his fatigue. He is using it every night, his energy level is really down. He has been on the zoloft for a month, his energy level Is not up but is very down. SOMNOLENCE 01/17/2006 01/03/2021 Overview: He refuses to get the sleep study done Last Assessment & Plan: He refuses to get the sleep study done Headache(784.0) 01/17/2006 11/21/2014 Dysthymic disorder Overview: Depression (non-psychotic) documented as of this encounter (statuses as of 05/23/2023) [facility]05-[facility]-2018 History of Past illness Narrative* Problem Noted Date Diagnosed Date Resolved Date Malaise and fatigue 06/18/2017 01/04/20 21 H/O concussion 06/18/2017 08/26/2019 Neck pain on left side 09/01/201401/03 Trigger middle finger of right hand 08/29/2011 01/03/2021 Trigger index finger of right hand 08/29/2011 07/16/2016 Last Assessment & Plan: GASTRITIS ANTRAL( W/O Hemorrhage) 04/24/2007 11/21/2014 HEMORRHOIDS INTERNAL 04/24/2007 015 Abdominal pain, other specified site 12/17/2006 11/21/2014 DEPRESSION RECURRENT( Moderate) 01/17/2006 05/22/2023 Last Assessment & Plan: He has been feeling more tired, the sleep machine did not change his fatigue. He is using it every night, his energy level is really down. He has been on the zoloft for a month, his energy level Is not up but is very down. SOMNOLENCE 01/17/2006 01/03/2021 Overview: He refuses to get the sleep study done Last Assessment & Plan: He refuses to get the sleep study done Headache(784.0) 01/17/2006 11/21/2014 Dysthymic disorder Overview: Depression (non-psychotic) documented as of this encounter (statuses as of 05/23/2023) [facility] Appointment Date:02/02/2021 08:00:00 AM Scheduled Provider: Location:[facility] Appointment Type:NM Myocardial Spect Rest/Stress Sachi (AH Future Scheduled Tests Radiology* NM Myocardial Spect Rest/Stress 02/02/21 [facility] Evaluation + Plan note Future Appointments Appointment Date:04/16/2021 11:00:00 AM Scheduled Provider: Location:[facility] Appointment Type:CV OV Future Scheduled Tests Laboratory* Basic Metabolic Panel 02/19/21 * Complete Blood Count 02/19/21 [facility] Evaluation + Plan note Future Appointments Appointment Date:06/11/2021 01:15:00 PM Scheduled Provider: Location:[facility] Appointment Type:CV OV Future Scheduled Tests Laboratory* Basic Metabolic Panel 02/19/21 * Complete Blood Count 02/19/21 [facility] Evaluation + Plan note Future Appointments Appointment Date:06/23/2023 02:00:00 PM Scheduled Provider: Location:[facility] Appointment Type:Telephone [facility] Evaluation note* Diagnosis Controlled type 2 diabetes mellitus without complication, without long-term current use of insulin (HCC) documented in this encounter [facility] note* Diagnosis Gastroesophageal reflux disease without esophagitis Esophageal reflux documented in this encounter [facility] noteNo assessment information [facility] Work Phone: Evaluation note* Diagnosis Controlled type 2 diabetes mellitus without complication, without long-term current use of insulin (HCC)- Primary PVC's (premature ventricular contractions) Other premature beats Primary hypertension Unspecified essential hypertension Pure hypercholesterolemia Coronary artery 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 angina pectoris documented in this encounter [facility] note* Diagnosis Pulmonary nodule/lesion, solitary- Primary Solitary pulmonary nodule Lung nodules Other nonspecific abnormal finding of lung field Abnormal x-ray Other nonspecific (abnormal) findings on radiological and other examinations of body structure Prostate cancer (HCC) Malignant neoplasm of prostate documented in this encounter [facility] note* Diagnosis Abnormal x-ray Other nonspecific (abnormal) findings on radiological and other examinations of body structure Prostate cancer (HCC) Malignant neoplasm of prostate Pulmonary nodule/lesion, solitary Solitary pulmonary nodule [facility]* Diagnosis Controlled type 2 diabetes mellitus without complication, without long-term current use of insulin (HCC)- Primary Pure hypercholesterolemia Primary hypertension Unspecified essential hypertension Fatty liver Other chronic nonalcoholic liver disease Chronic fatigue Other malaise and fatigue Encounter for long-term current use of medication documented in this encounter [facility] note* Diagnosis Gastroesophageal reflux disease without esophagitis- Primary Esophageal reflux Controlled type 2 diabetes mellitus without complication, without long-term current use of insulin (HCC) RAJI (obstructive sleep apnea) AHI 39 Obstructive sleep apnea (adult) (pediatric) Pure hypercholesterolemia Primary hypertension Unspecified essential hypertension Hypothyroidism, unspecified type Vitamin D deficiency Unspecified vitamin D deficiency Encounter for long-term current use of medication documented in this encounter [facility] note* Diagnosis Hoarseness- Primary Dysphonia Gastroesophageal reflux disease without esophagitis Esophageal reflux Nasal drainage Other diseases of nasal cavity and sinuses documented in this encounter [facility] note* Diagnosis Controlled type 2 diabetes mellitus without complication, without long-term current use of insulin (HCC)- Primary Major depressive disorder, recurrent episode, moderate (HCC) Major depressive disorder, recurrent episode, moderate [facility]* Diagnosis Controlled type 2 diabetes mellitus without complication, without long-term current use of insulin (HCC)- Primary Major depressive disorder, recurrent episode, moderate (HCC) Major depressive disorder, recurrent episode, moderate Primary hypertension Unspecified essential hypertension Other fatigue Functional bloating [facility]* Diagnosis Controlled type 2 diabetes mellitus without complication, without long-term current use of insulin ([facility])- Primary Hypomagnesemia Disorders of magnesium metabolism Primary hypertension Unspecified essential hypertension Gastroesophageal reflux disease with esophagitis without hemorrhage [facility]* Diagnosis Onset Date Resolution Status Internal impingement of left shoulder acute Left rotator cuff tear acute Left shoulder pain acute [facility] Work Phone: Evaluation note* Diagnosis Gastroesophageal reflux disease without esophagitis Esophageal reflux documented in this encounter [facility] note* Diagnosis Onset Date Resolution Status Left rotator cuff tear acute Left rotator cuff tear acute Left shoulder pain acute Left rotator cuff tear acute Internal impingement of left shoulder acute Left rotator cuff tear acute Left shoulder pain acute Internal impingement of left shoulder acute Left rotator cuff tear acute Internal impingement of left shoulder acute Left rotator cuff tear acute [facility] Work Phone: Evaluation note* Diagnosis Hypomagnesemia Disorders of magnesium metabolism [facility]* Diagnosis Acute pansinusitis, recurrence not specified- Primary documented in this encounter [facility] note* Diagnosis Controlled type 2 diabetes mellitus without complication, without long-term current use of insulin ([facility]) documented in this encounter [facility] note* Diagnosis Candidal intertrigo- Primary Candidiasis of skin and nails [facility]* Diagnosis Controlled type 2 diabetes mellitus without complication, without long-term current use of insulin ([facility])- Primary Coronary artery 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 angina pectoris Gastroesophageal reflux disease without esophagitis Esophageal reflux Candidal intertrigo Candidiasis of skin and nails Hypomagnesemia Disorders of magnesium metabolism Hoarseness Dysphonia Primary hypertension Unspecified essential hypertension Vitamin D deficiency Unspecified vitamin D deficiency Pure hypercholesterolemia Chronic left shoulder pain Pain in joint, shoulder region Recurrent major depressive disorder, in full remission (HCC) Need for shingles vaccine Need for prophylactic vaccination and inoculation against other viral diseases Encounter for immunization Need for other specified prophylactic vaccination against single bacterial disease Hip pain, unspecified laterality [facility]* Diagnosis Diplopia- Primary Chronic fatigue Other malaise and fatigue Headaches [facility]* Diagnosis Diabetes mellitus type 2, controlled, without complications (HCC)- Primary Type II or unspecified type diabetes mellitus without mention of complication, not stated as uncontrolled Injury of left toe, initial encounter Essential hypertension with goal blood pressure less than 140/90 Pure hypercholesterolemia Controlled type 2 diabetes mellitus without complication, without long-term current use of insulin (HCC)- Primary Chronic right shoulder pain Pain in joint, shoulder region Acute gastritis without mention of hemorrhage Essential hypertension Unspecified essential hypertension Shoulder arthritis Unspecified arthropathy, shoulder region SOMNOLENCE Other alteration of consciousness Decreased energy- Primary Other malaise and fatigue Prostate cancer (HCC) Malignant neoplasm of prostate Pulmonary nodule Solitary pulmonary nodule Controlled type 2 diabetes mellitus without complication, without long-term current use of insulin (HCC) DEPRESSION RECURRENT( Moderate) Major depressive disorder, recurrent episode, moderate Seizure (HCC) Other convulsions RAJI (obstructive sleep apnea) Obstructive sleep apnea (adult) (pediatric) Controlled type 2 diabetes mellitus with hypoglycemia, without long-term current use of insulin (HCC)- Primary Coronary artery 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 angina pectoris Primary hypertension Unspecified essential hypertension Palpitation Palpitations Gastroesophageal reflux disease without esophagitis Esophageal reflux Encounter for screening examination for other mental health and behavioral disorders Screening for depression Encounter for therapeutic drug monitoring [facility]* Diagnosis Diabetes mellitus type 2, controlled, without complications (HCC)- Primary Type II or unspecified type diabetes mellitus without mention of complication, not stated as uncontrolled Injury of left toe, initial encounter Essential hypertension with goal blood pressure less than 140/90 Pure hypercholesterolemia Controlled type 2 diabetes mellitus without complication, without long-term current use of insulin (HCC)- Primary Chronic right shoulder pain Pain in joint, shoulder region Acute gastritis without mention of hemorrhage Essential hypertension Unspecified essential hypertension Shoulder arthritis Unspecified arthropathy, shoulder region SOMNOLENCE Other alteration of consciousness Decreased energy- Primary Other malaise and fatigue Prostate cancer (HCC) Malignant neoplasm of prostate Pulmonary nodule Solitary pulmonary nodule Controlled type 2 diabetes mellitus without complication, without long-term current use of insulin (HCC) DEPRESSION RECURRENT( Moderate) Major depressive disorder, recurrent episode, moderate Seizure (HCC) Other convulsions RAJI (obstructive sleep apnea) Obstructive sleep apnea (adult) (pediatric) Hip pain Pain in joint, pelvic region and thigh documented in this encounter [facility] note* Diagnosis Diabetes mellitus type 2, controlled, without complications (HCC)- Primary Type II or unspecified type diabetes mellitus without mention of complication, not stated as uncontrolled Injury of left toe, initial encounter Essential hypertension with goal blood pressure less than 140/90 Pure hypercholesterolemia Controlled type 2 diabetes mellitus without complication, without long-term current use of insulin (HCC)- Primary Chronic right shoulder pain Pain in joint, shoulder region Acute gastritis without mention of hemorrhage Essential hypertension Unspecified essential hypertension Shoulder arthritis Unspecified arthropathy, shoulder region SOMNOLENCE Other alteration of consciousness Decreased energy- Primary Other malaise and fatigue Prostate cancer (HCC) Malignant neoplasm of prostate Pulmonary nodule Solitary pulmonary nodule Controlled type 2 diabetes mellitus without complication, without long-term current use of insulin (HCC) DEPRESSION RECURRENT( Moderate) Major depressive disorder, recurrent episode, moderate Seizure (HCC) Other convulsions RAJI (obstructive sleep apnea) Obstructive sleep apnea (adult) (pediatric) Wheezing documented in this encounter [facility] note* Diagnosis Diabetes mellitus type 2, controlled, without complications (HCC)- Primary Type II or unspecified type diabetes mellitus without mention of complication, not stated as uncontrolled Injury of left toe, initial encounter Essential hypertension with goal blood pressure less than 140/90 Pure hypercholesterolemia Controlled type 2 diabetes mellitus without complication, without long-term current use of insulin (HCC)- Primary Chronic right shoulder pain Pain in joint, shoulder region Acute gastritis without mention of hemorrhage Essential hypertension Unspecified essential hypertension Shoulder arthritis Unspecified arthropathy, shoulder region SOMNOLENCE Other alteration of consciousness Decreased energy- Primary Other malaise and fatigue Prostate cancer (HCC) Malignant neoplasm of prostate Pulmonary nodule Solitary pulmonary nodule Controlled type 2 diabetes mellitus without complication, without long-term current use of insulin (HCC) DEPRESSION RECURRENT( Moderate) Major depressive disorder, recurrent episode, moderate Seizure (HCC) Other convulsions RAJI (obstructive sleep apnea) Obstructive sleep apnea (adult) (pediatric) Bilateral hip pain- Primary Pain in joint, pelvic region and thigh documented in this encounter [facility] note* Diagnosis Diabetes mellitus type 2, controlled, without complications (HCC)- Primary Type II or unspecified type diabetes mellitus without mention of complication, not stated as uncontrolled Injury of left toe, initial encounter Essential hypertension with goal blood pressure less than 140/90 Pure hypercholesterolemia Controlled type 2 diabetes mellitus without complication, without long-term current use of insulin (HCC)- Primary Chronic right shoulder pain Pain in joint, shoulder region Acute gastritis without mention of hemorrhage Essential hypertension Unspecified essential hypertension Shoulder arthritis Unspecified arthropathy, shoulder region SOMNOLENCE Other alteration of consciousness Decreased energy- Primary Other malaise and fatigue Prostate cancer (HCC) Malignant neoplasm of prostate Pulmonary nodule Solitary pulmonary nodule Controlled type 2 diabetes mellitus without complication, without long-term current use of insulin (HCC) DEPRESSION RECURRENT( Moderate) Major depressive disorder, recurrent episode, moderate Seizure (HCC) Other convulsions RAJI (obstructive sleep apnea) Obstructive sleep apnea (adult) (pediatric) Diplopia- Primary Headaches documented in this encounter [facility] note* Diagnosis Diabetes mellitus type 2, controlled, without complications (HCC)- Primary Type II or unspecified type diabetes mellitus without mention of complication, not stated as uncontrolled Injury of left toe, initial encounter Essential hypertension with goal blood pressure less than 140/90 Pure hypercholesterolemia Controlled type 2 diabetes mellitus without complication, without long-term current use of insulin (HCC)- Primary Chronic right shoulder pain Pain in joint, shoulder region Acute gastritis without mention of hemorrhage Essential hypertension Unspecified essential hypertension Shoulder arthritis Unspecified arthropathy, shoulder region SOMNOLENCE Other alteration of consciousness Decreased energy- Primary Other malaise and fatigue Prostate cancer (HCC) Malignant neoplasm of prostate Pulmonary nodule Solitary pulmonary nodule Controlled type 2 diabetes mellitus without complication, without long-term current use of insulin (HCC) DEPRESSION RECURRENT( Moderate) Major depressive disorder, recurrent episode, moderate Seizure (HCC) Other convulsions RAJI (obstructive sleep apnea) Obstructive sleep apnea (adult) (pediatric) Bilateral hip pain Pain in joint, pelvic region and thigh documented in this encounter [facility] note* Diagnosis Diabetes mellitus type 2, controlled, without complications (HCC)- Primary Type II or unspecified type diabetes mellitus without mention of complication, not stated as uncontrolled Injury of left toe, initial encounter Essential hypertension with goal blood pressure less than 140/90 Pure hypercholesterolemia Controlled type 2 diabetes mellitus without complication, without long-term current use of insulin (HCC)- Primary Chronic right shoulder pain Pain in joint, shoulder region Acute gastritis without mention of hemorrhage Essential hypertension Unspecified essential hypertension Shoulder arthritis Unspecified arthropathy, shoulder region SOMNOLENCE Other alteration of consciousness Decreased energy- Primary Other malaise and fatigue Prostate cancer (HCC) Malignant neoplasm of prostate Pulmonary nodule Solitary pulmonary nodule Controlled type 2 diabetes mellitus without complication, without long-term current use of insulin (HCC) DEPRESSION RECURRENT( Moderate) Major depressive disorder, recurrent episode, moderate Seizure (HCC) Other convulsions RAJI (obstructive sleep apnea) Obstructive sleep apnea (adult) (pediatric) Primary osteoarthritis of both hips- Primary Primary localized osteoarthrosis, pelvic region and thigh documented in this encounter [facility] note* Diagnosis Diabetes mellitus type 2, controlled, without complications (HCC)- Primary Type II or unspecified type diabetes mellitus without mention of complication, not stated as uncontrolled Injury of left toe, initial encounter Essential hypertension with goal blood pressure less than 140/90 Pure hypercholesterolemia Controlled type 2 diabetes mellitus without complication, without long-term current use of insulin (HCC)- Primary Chronic right shoulder pain Pain in joint, shoulder region Acute gastritis without mention of hemorrhage Essential hypertension Unspecified essential hypertension Shoulder arthritis Unspecified arthropathy, shoulder region SOMNOLENCE Other alteration of consciousness Decreased energy- Primary Other malaise and fatigue Prostate cancer (HCC) Malignant neoplasm of prostate Pulmonary nodule Solitary pulmonary nodule Controlled type 2 diabetes mellitus without complication, without long-term current use of insulin (HCC) DEPRESSION RECURRENT( Moderate) Major depressive disorder, recurrent episode, moderate Seizure (HCC) Other convulsions RAJI (obstructive sleep apnea) Obstructive sleep apnea (adult) (pediatric) Brain fog- Primary Diplopia Memory loss Other fatigue documented in this encounter [facility] note* Diagnosis Diabetes mellitus type 2, controlled, without complications (HCC)- Primary Type II or unspecified type diabetes mellitus without mention of complication, not stated as uncontrolled Injury of left toe, initial encounter Essential hypertension with goal blood pressure less than 140/90 Pure hypercholesterolemia Controlled type 2 diabetes mellitus without complication, without long-term current use of insulin (HCC)- Primary Chronic right shoulder pain Pain in joint, shoulder region Acute gastritis without mention of hemorrhage Essential hypertension Unspecified essential hypertension Shoulder arthritis Unspecified arthropathy, shoulder region SOMNOLENCE Other alteration of consciousness Decreased energy- Primary Other malaise and fatigue Prostate cancer (HCC) Malignant neoplasm of prostate Pulmonary nodule Solitary pulmonary nodule Controlled type 2 diabetes mellitus without complication, without long-term current use of insulin (HCC) DEPRESSION RECURRENT( Moderate) Major depressive disorder, recurrent episode, moderate Seizure (HCC) Other convulsions RAJI (obstructive sleep apnea) Obstructive sleep apnea (adult) (pediatric) Primary osteoarthritis of both hips- Primary Primary localized osteoarthrosis, pelvic region and thigh Primary osteoarthritis of both hips Primary localized osteoarthrosis, pelvic region and thigh documented in this encounter [facility] note* Diagnosis Diabetes mellitus type 2, controlled, without complications (HCC)- Primary Type II or unspecified type diabetes mellitus without mention of complication, not stated as uncontrolled Injury of left toe, initial encounter Essential hypertension with goal blood pressure less than 140/90 Pure hypercholesterolemia Controlled type 2 diabetes mellitus without complication, without long-term current use of insulin (HCC)- Primary Chronic right shoulder pain Pain in joint, shoulder region Acute gastritis without mention of hemorrhage Essential hypertension Unspecified essential hypertension Shoulder arthritis Unspecified arthropathy, shoulder region SOMNOLENCE Other alteration of consciousness Decreased energy- Primary Other malaise and fatigue Prostate cancer (HCC) Malignant neoplasm of prostate Pulmonary nodule Solitary pulmonary nodule Controlled type 2 diabetes mellitus without complication, without long-term current use of insulin (HCC) DEPRESSION RECURRENT( Moderate) Major depressive disorder, recurrent episode, moderate Seizure (HCC) Other convulsions RAJI (obstructive sleep apnea) Obstructive sleep apnea (adult) (pediatric) Primary osteoarthritis of both hips- Primary Primary localized osteoarthrosis, pelvic region and thigh Primary osteoarthritis of both hips Primary localized osteoarthrosis, pelvic region and thigh documented in this encounter [facility] note* Diagnosis Diabetes mellitus type 2, controlled, without complications (HCC)- Primary Type II or unspecified type diabetes mellitus without mention of complication, not stated as uncontrolled Injury of left toe, initial encounter Essential hypertension with goal blood pressure less than 140/90 Pure hypercholesterolemia Controlled type 2 diabetes mellitus without complication, without long-term current use of insulin (HCC)- Primary Chronic right shoulder pain Pain in joint, shoulder region Acute gastritis without mention of hemorrhage Essential hypertension Unspecified essential hypertension Shoulder arthritis Unspecified arthropathy, shoulder region SOMNOLENCE Other alteration of consciousness Decreased energy- Primary Other malaise and fatigue Prostate cancer (HCC) Malignant neoplasm of prostate Pulmonary nodule Solitary pulmonary nodule Controlled type 2 diabetes mellitus without complication, without long-term current use of insulin (HCC) DEPRESSION RECURRENT( Moderate) Major depressive disorder, recurrent episode, moderate Seizure (HCC) Other convulsions RAJI (obstructive sleep apnea) Obstructive sleep apnea (adult) (pediatric) Brain fog Memory loss Diplopia Primary osteoarthritis of both hips Primary localized osteoarthrosis, pelvic region and thigh documented in this encounter [facility] note* Diagnosis Diabetes mellitus type 2, controlled, without complications (HCC)- Primary Type II or unspecified type diabetes mellitus without mention of complication, not stated as uncontrolled Injury of left toe, initial encounter Essential hypertension with goal blood pressure less than 140/90 Pure hypercholesterolemia Controlled type 2 diabetes mellitus without complication, without long-term current use of insulin (HCC)- Primary Chronic right shoulder pain Pain in joint, shoulder region Acute gastritis without mention of hemorrhage Essential hypertension Unspecified essential hypertension Shoulder arthritis Unspecified arthropathy, shoulder region SOMNOLENCE Other alteration of consciousness Decreased energy- Primary Other malaise and fatigue Prostate cancer (HCC) Malignant neoplasm of prostate Pulmonary nodule Solitary pulmonary nodule Controlled type 2 diabetes mellitus without complication, without long-term current use of insulin (HCC) DEPRESSION RECURRENT( Moderate) Major depressive disorder, recurrent episode, moderate Seizure (HCC) Other convulsions RAJI (obstructive sleep apnea) Obstructive sleep apnea (adult) (pediatric) Low vitamin B12 level- Primary Other B-complex deficiencies Diplopia Memory loss Primary osteoarthritis of both hips Primary localized osteoarthrosis, pelvic region and thigh [facility] Diagnosis Diabetes mellitus type 2, controlled, without complications (HCC)- Primary Type II or unspecified type diabetes mellitus without mention of complication, not stated as uncontrolled Injury of left toe, initial encounter Essential hypertension with goal blood pressure less than 140/90 Pure hypercholesterolemia Controlled type 2 diabetes mellitus without complication, without long-term current use of insulin (HCC)- Primary Chronic right shoulder pain Pain in joint, shoulder region Acute gastritis without mention of hemorrhage Essential hypertension Unspecified essential hypertension Shoulder arthritis Unspecified arthropathy, shoulder region SOMNOLENCE Other alteration of consciousness Decreased energy- Primary Other malaise and fatigue Prostate cancer (HCC) Malignant neoplasm of prostate Pulmonary nodule Solitary pulmonary nodule Controlled type 2 diabetes mellitus without complication, without long-term current use of insulin (HCC) DEPRESSION RECURRENT( Moderate) Major depressive disorder, recurrent episode, moderate Seizure (HCC) Other convulsions RAJI (obstructive sleep apnea) Obstructive sleep apnea (adult) (pediatric) Pre-operative examination- Primary Preoperative examination, unspecified Primary hypertension Unspecified essential hypertension Pure hypercholesterolemia Cardiomyopathy, unspecified type (HCC) Coronary artery 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 angina pectoris RAJI (obstructive sleep apnea) AHI 39 Obstructive sleep apnea (adult) (pediatric) Gastroesophageal reflux disease with esophagitis without hemorrhage Prostate cancer (HCC) Malignant neoplasm of prostate Controlled type 2 diabetes mellitus without complication, without long-term current use of insulin (HCC) Pulmonary nodule/lesion, solitary Solitary pulmonary nodule Diaphragmatic hernia without obstruction and without gangrene Primary osteoarthritis of both hips Primary localized osteoarthrosis, pelvic region and thigh * Assessment & Plan Note - Siomara Luong APRN.CNP - 02/02/2024 1:41 PM EST Associated Problem(s): Diaphragmatic hernia Assessment: no hx surgical interventions * Assessment & Plan Note - Siomara Luong APRN.CNP - 02/02/2024 1:40 PM EST Associated Problem(s): Pulmonary nodule/lesion, solitary Assessment: surveillance, last CT chest 2021 showing calcified granuloma * Assessment & Plan Note - Siomara Luong APRN.CNP - 02/02/2024 1:39 PM EST Associated Problem(s): Diabetes mellitus type 2, controlled, without complications (HCC) Assessment: controlled with oral agent Hemoglobin A1C (%) Date Value 01/30/2024 8.2 10/11/2020 7.5 * Assessment & Plan Note - Siomara Luong APRN.CNP - 02/02/2024 1:38 PM EST Associated Problem(s): Prostate cancer (HCC) Assessment: s/p prostatectomy, denies radiation * Assessment & Plan Note - Siomara Luong APRN.CNP - 02/02/2024 1:38 PM EST Associated Problem(s): ESOPHAGITIS REFLUX Assessment: controlled on rx * Assessment & Plan Note - Siomara Luong APRN.CNP - 02/02/2024 1:37 PM EST Associated Problem(s): RAJI (obstructive sleep apnea) AHI 39 Assessment: non-compliant with CPAP * Assessment & Plan Note - Siomara Luong APRN.CNP - 02/02/2024 1:37 PM EST Associated Problem(s): Coronary artery 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 angina pectoris Assessment: mild to moderate 2021 heart cath, c/w daily ASA, statin and BB. Denies CP, palpitations, sob, new or worsening cardiac symptoms * Assessment & Plan Note - Siomara Luong APRN.CNP - 02/02/2024 1:36 PM EST Associated Problem(s): Cardiomyopathy (HCC) Assessment: controlled on rx, improved EF 45-% to 55% (echo 2021 per warehouse attendant note) after Entresto. Following [facility], last OV scanned into [facility] * Assessment & Plan Note - Siomara Luong APRN.CNP - 02/02/2024 1:33 PM EST Associated Problem(s): Pure hypercholesterolemia Assessment: c/w statin * Assessment & Plan Note - Siomara Luong APRN.CNP - 02/02/2024 1:33 PM EST Associated Problem(s): Hypertension Assessment: controlled on rx Last 14 BP Last 14 Encounter BP Readings: Date: BP: 01/30/2024 118/74 01/27/2024 105/78 12/24/2023 111/69 10/15/2023 106/68 03/30/2023 135/85 10/02/2022 110/72 07/26/2022 130/76 06/04/2022 91/73 05/09/2022 130/88 04/01/2022 110/72 11/20/2021 100/54 08/10/2021 118/72 01/01/2021 148/74 08/23/2020 122/78 [facility] Diagnosis Diabetes mellitus type 2, controlled, without complications (HCC)- Primary Type II or unspecified type diabetes mellitus without mention of complication, not stated as uncontrolled Injury of left toe, initial encounter Essential hypertension with goal blood pressure less than 140/90 Pure hypercholesterolemia Controlled type 2 diabetes mellitus without complication, without long-term current use of insulin (HCC)- Primary Chronic right shoulder pain Pain in joint, shoulder region Acute gastritis without mention of hemorrhage Essential hypertension Unspecified essential hypertension Shoulder arthritis Unspecified arthropathy, shoulder region SOMNOLENCE Other alteration of consciousness Decreased energy- Primary Other malaise and fatigue Prostate cancer (HCC) Malignant neoplasm of prostate Pulmonary nodule Solitary pulmonary nodule Controlled type 2 diabetes mellitus without complication, without long-term current use of insulin (HCC) DEPRESSION RECURRENT( Moderate) Major depressive disorder, recurrent episode, moderate Seizure (HCC) Other convulsions RAJI (obstructive sleep apnea) Obstructive sleep apnea (adult) (pediatric) Pre-operative examination- Primary Preoperative examination, unspecified Primary hypertension Unspecified essential hypertension Pure hypercholesterolemia Cardiomyopathy, unspecified type (HCC) Coronary artery 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 angina pectoris RAJI (obstructive sleep apnea) AHI 39 Obstructive sleep apnea (adult) (pediatric) Gastroesophageal reflux disease with esophagitis without hemorrhage Prostate cancer (HCC) Malignant neoplasm of prostate Controlled type 2 diabetes mellitus without complication, without long-term current use of insulin (HCC) Pulmonary nodule/lesion, solitary Solitary pulmonary nodule Diaphragmatic hernia without obstruction and without gangrene Controlled type 2 diabetes mellitus with hypoglycemia, without long-term current use of insulin (HCC) Primary osteoarthritis of both hips Primary localized osteoarthrosis, pelvic region and thigh documented in this encounter [facility] note* Diagnosis Diabetes mellitus type 2, controlled, without complications (HCC)- Primary Type II or unspecified type diabetes mellitus without mention of complication, not stated as uncontrolled Injury of left toe, initial encounter Essential hypertension with goal blood pressure less than 140/90 Pure hypercholesterolemia Controlled type 2 diabetes mellitus without complication, without long-term current use of insulin (HCC)- Primary Chronic right shoulder pain Pain in joint, shoulder region Acute gastritis without mention of hemorrhage Essential hypertension Unspecified essential hypertension Shoulder arthritis Unspecified arthropathy, shoulder region SOMNOLENCE Other alteration of consciousness Decreased energy- Primary Other malaise and fatigue Prostate cancer (HCC) Malignant neoplasm of prostate Pulmonary nodule Solitary pulmonary nodule Controlled type 2 diabetes mellitus without complication, without long-term current use of insulin (HCC) DEPRESSION RECURRENT( Moderate) Major depressive disorder, recurrent episode, moderate Seizure (HCC) Other convulsions RAJI (obstructive sleep apnea) Obstructive sleep apnea (adult) (pediatric) Pre-operative examination- Primary Preoperative examination, unspecified Primary hypertension Unspecified essential hypertension Pure hypercholesterolemia Cardiomyopathy, unspecified type (HCC) Coronary artery 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 angina pectoris RAJI (obstructive sleep apnea) AHI 39 Obstructive sleep apnea (adult) (pediatric) Gastroesophageal reflux disease with esophagitis without hemorrhage Prostate cancer (HCC) Malignant neoplasm of prostate Controlled type 2 diabetes mellitus without complication, without long-term current use of insulin (HCC) Pulmonary nodule/lesion, solitary Solitary pulmonary nodule Diaphragmatic hernia without obstruction and without gangrene Pre-operative examination- Primary Preoperative examination, unspecified Cardiomyopathy, unspecified type (HCC) Coronary artery 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 angina pectoris Primary hypertension Unspecified essential hypertension Pure hypercholesterolemia Diaphragmatic hernia without obstruction and without gangrene RAJI (obstructive sleep apnea) AHI 39 Obstructive sleep apnea (adult) (pediatric) Pulmonary nodule/lesion, solitary Solitary pulmonary nodule Gastroesophageal reflux disease with esophagitis without hemorrhage Controlled type 2 diabetes mellitus without complication, without long-term current use of insulin (HCC) Prostate cancer (HCC) Malignant neoplasm of prostate Complaints of memory disturbance Memory loss Primary osteoarthritis of both hips Primary localized osteoarthrosis, pelvic region and thigh * Assessment & Plan Note - Siomara Luong, INTEGRATION MANAGER.LEISURE TRAVEL AGENT - 03/22/2024 11:04 AM EST Associated Problem(s): Complaints of memory disturbance Assessment: following neurology * Assessment & Plan Note - Siomara Luong APRN.CNP - 03/22/2024 11:03 AM EST Associated Problem(s): Prostate cancer (HCC) Assessment: s/p prostatectomy, denies radiation * Assessment & Plan Note - Siomara Luong APRN.CNP - 03/22/2024 11:03 AM EST Associated Problem(s): Diabetes mellitus type 2, controlled, without complications (HCC) Assessment: controlled with oral agent, surgery initially Cx due to elevated A1c, new A1c pending Hemoglobin A1C (%) Date Value 01/30/2024 8.2 10/11/2020 7.5 * Assessment & Plan Note - Siomara Luong APRN.CNP - 03/22/2024 11:03 AM EST Associated Problem(s): ESOPHAGITIS REFLUX Assessment: controlled on rx * Assessment & Plan Note - Siomara Luong APRN.CNP - 03/22/2024 11:02 AM EST Associated Problem(s): Pulmonary nodule/lesion, solitary Assessment: surveillance, last CT chest 2021 showing calcified granuloma * Assessment & Plan Note - Siomara Luong APRN.CNP - 03/22/2024 11:02 AM EST Associated Problem(s): RAJI (obstructive sleep apnea) AHI 39 Assessment: non-compliant with CPAP * Assessment & Plan Note - Siomara Luong APRN.CNP - 03/22/2024 11:02 AM EST Associated Problem(s): Diaphragmatic hernia Assessment: no hx surgical interventions * Assessment & Plan Note - Siomara Luong APRN.CNP - 03/22/2024 11:02 AM EST Associated Problem(s): Pure hypercholesterolemia Assessment: c/w statin * Assessment & Plan Note - Siomara Luong APRN.CNP - 03/22/2024 11:02 AM EST Associated Problem(s): Hypertension Assessment: controlled on rx Last 14 BP Last 14 Encounter BP Readings: Date: BP: 03/22/2024 128/80 01/30/2024 118/74 01/27/2024 105/78 12/24/2023 111/69 10/15/2023 106/68 03/30/2023 135/85 10/02/2022 110/72 07/26/2022 130/76 06/04/2022 91/73 05/09/2022 130/88 04/01/2022 110/72 11/20/2021 100/54 08/10/2021 118/72 01/01/2021 148/74 * Assessment & Plan Note - Siomara Luong APRN.CNP - 03/22/2024 11:02 AM EST Associated Problem(s): Coronary artery 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 angina pectoris Assessment: mild to moderate 2021 heart cath, c/w daily ASA, statin and BB. Denies CP, palpitations, sob, new or worsening cardiac symptoms * Assessment & Plan Note - Siomara Luong APRN.CNP - 03/22/2024 11:01 AM EST Associated Problem(s): Cardiomyopathy (HCC) Assessment: controlled on rx, improved EF 45-% to 55% (echo 2021 per warehouse attendant note) after Entresto. Following [facility], last OV scanned into epic [facility]* Diagnosis Diabetes mellitus type 2, controlled, without complications (HCC)- Primary Type II or unspecified type diabetes mellitus without mention of complication, not stated as uncontrolled Injury of left toe, initial encounter Essential hypertension with goal blood pressure less than 140/90 Pure hypercholesterolemia Controlled type 2 diabetes mellitus without complication, without long-term current use of insulin (HCC)- Primary Chronic right shoulder pain Pain in joint, shoulder region Acute gastritis without mention of hemorrhage Essential hypertension Unspecified essential hypertension Shoulder arthritis Unspecified arthropathy, shoulder region SOMNOLENCE Other alteration of consciousness Decreased energy- Primary Other malaise and fatigue Prostate cancer (HCC) Malignant neoplasm of prostate Pulmonary nodule Solitary pulmonary nodule Controlled type 2 diabetes mellitus without complication, without long-term current use of insulin (HCC) DEPRESSION RECURRENT( Moderate) Major depressive disorder, recurrent episode, moderate Seizure (HCC) Other convulsions RAJI (obstructive sleep apnea) Obstructive sleep apnea (adult) (pediatric) Pre-operative examination- Primary Preoperative examination, unspecified Primary hypertension Unspecified essential hypertension Pure hypercholesterolemia Cardiomyopathy, unspecified type (HCC) Coronary artery 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 angina pectoris RAJI (obstructive sleep apnea) AHI 39 Obstructive sleep apnea (adult) (pediatric) Gastroesophageal reflux disease with esophagitis without hemorrhage Prostate cancer (HCC) Malignant neoplasm of prostate Controlled type 2 diabetes mellitus without complication, without long-term current use of insulin (HCC) Pulmonary nodule/lesion, solitary Solitary pulmonary nodule Diaphragmatic hernia without obstruction and without gangrene Pre-operative examination- Primary Preoperative examination, unspecified Cardiomyopathy, unspecified type (HCC) Coronary artery 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 angina pectoris Primary hypertension Unspecified essential hypertension Pure hypercholesterolemia Diaphragmatic hernia without obstruction and without gangrene RAJI (obstructive sleep apnea) AHI 39 Obstructive sleep apnea (adult) (pediatric) Pulmonary nodule/lesion, solitary Solitary pulmonary nodule Gastroesophageal reflux disease with esophagitis without hemorrhage Controlled type 2 diabetes mellitus without complication, without long-term current use of insulin (HCC) Prostate cancer (HCC) Malignant neoplasm of prostate Complaints of memory disturbance Memory loss Controlled type 2 diabetes mellitus with hypoglycemia, without long-term current use of insulin (HCC) Primary osteoarthritis of both hips Primary localized osteoarthrosis, pelvic region and thigh documented in this encounter [facility] note* Diagnosis Diabetes mellitus type 2, controlled, without complications (HCC)- Primary Type II or unspecified type diabetes mellitus without mention of complication, not stated as uncontrolled Injury of left toe, initial encounter Essential hypertension with goal blood pressure less than 140/90 Pure hypercholesterolemia Controlled type 2 diabetes mellitus without complication, without long-term current use of insulin (HCC)- Primary Chronic right shoulder pain Pain in joint, shoulder region Acute gastritis without mention of hemorrhage Essential hypertension Unspecified essential hypertension Shoulder arthritis Unspecified arthropathy, shoulder region SOMNOLENCE Other alteration of consciousness Decreased energy- Primary Other malaise and fatigue Prostate cancer (HCC) Malignant neoplasm of prostate Pulmonary nodule Solitary pulmonary nodule Controlled type 2 diabetes mellitus without complication, without long-term current use of insulin (HCC) DEPRESSION RECURRENT( Moderate) Major depressive disorder, recurrent episode, moderate Seizure (HCC) Other convulsions RAJI (obstructive sleep apnea) Obstructive sleep apnea (adult) (pediatric) Pre-operative examination- Primary Preoperative examination, unspecified Primary hypertension Unspecified essential hypertension Pure hypercholesterolemia Cardiomyopathy, unspecified type (HCC) Coronary artery 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 angina pectoris RAJI (obstructive sleep apnea) AHI 39 Obstructive sleep apnea (adult) (pediatric) Gastroesophageal reflux disease with esophagitis without hemorrhage Prostate cancer (HCC) Malignant neoplasm of prostate Controlled type 2 diabetes mellitus without complication, without long-term current use of insulin (HCC) Pulmonary nodule/lesion, solitary Solitary pulmonary nodule Diaphragmatic hernia without obstruction and without gangrene Pre-operative examination- Primary Preoperative examination, unspecified Cardiomyopathy, unspecified type (HCC) Coronary artery 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 angina pectoris Primary hypertension Unspecified essential hypertension Pure hypercholesterolemia Diaphragmatic hernia without obstruction and without gangrene RAJI (obstructive sleep apnea) AHI 39 Obstructive sleep apnea (adult) (pediatric) Pulmonary nodule/lesion, solitary Solitary pulmonary nodule Gastroesophageal reflux disease with esophagitis without hemorrhage Controlled type 2 diabetes mellitus without complication, without long-term current use of insulin (HCC) Prostate cancer (HCC) Malignant neoplasm of prostate Complaints of memory disturbance Memory loss S/P total right hip arthroplasty documented in this encounter [facility] note* Diagnosis Diabetes mellitus type 2, controlled, without complications (HCC)- Primary Type II or unspecified type diabetes mellitus without mention of complication, not stated as uncontrolled Injury of left toe, initial encounter Essential hypertension with goal blood pressure less than 140/90 Pure hypercholesterolemia Controlled type 2 diabetes mellitus without complication, without long-term current use of insulin (HCC)- Primary Chronic right shoulder pain Pain in joint, shoulder region Acute gastritis without mention of hemorrhage Essential hypertension Unspecified essential hypertension Shoulder arthritis Unspecified arthropathy, shoulder region SOMNOLENCE Other alteration of consciousness Decreased energy- Primary Other malaise and fatigue Prostate cancer (HCC) Malignant neoplasm of prostate Pulmonary nodule Solitary pulmonary nodule Controlled type 2 diabetes mellitus without complication, without long-term current use of insulin (HCC) DEPRESSION RECURRENT( Moderate) Major depressive disorder, recurrent episode, moderate Seizure (HCC) Other convulsions RAJI (obstructive sleep apnea) Obstructive sleep apnea (adult) (pediatric) Pre-operative examination- Primary Preoperative examination, unspecified Primary hypertension Unspecified essential hypertension Pure hypercholesterolemia Cardiomyopathy, unspecified type (HCC) Coronary artery 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 angina pectoris RAJI (obstructive sleep apnea) AHI 39 Obstructive sleep apnea (adult) (pediatric) Gastroesophageal reflux disease with esophagitis without hemorrhage Prostate cancer (HCC) Malignant neoplasm of prostate Controlled type 2 diabetes mellitus without complication, without long-term current use of insulin (HCC) Pulmonary nodule/lesion, solitary Solitary pulmonary nodule Diaphragmatic hernia without obstruction and without gangrene Pre-operative examination- Primary Preoperative examination, unspecified Cardiomyopathy, unspecified type (HCC) Coronary artery 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 angina pectoris Primary hypertension Unspecified essential hypertension Pure hypercholesterolemia Diaphragmatic hernia without obstruction and without gangrene RAJI (obstructive sleep apnea) AHI 39 Obstructive sleep apnea (adult) (pediatric) Pulmonary nodule/lesion, solitary Solitary pulmonary nodule Gastroesophageal reflux disease with esophagitis without hemorrhage Controlled type 2 diabetes mellitus without complication, without long-term current use of insulin (HCC) Prostate cancer (HCC) Malignant neoplasm of prostate Complaints of memory disturbance Memory loss Status post hip replacement, right- Primary documented in this encounter [facility] note* Diagnosis Diabetes mellitus type 2, controlled, without complications (HCC)- Primary Type II or unspecified type diabetes mellitus without mention of complication, not stated as uncontrolled Injury of left toe, initial encounter Essential hypertension with goal blood pressure less than 140/90 Pure hypercholesterolemia Controlled type 2 diabetes mellitus without complication, without long-term current use of insulin (HCC)- Primary Chronic right shoulder pain Pain in joint, shoulder region Acute gastritis without mention of hemorrhage Essential hypertension Unspecified essential hypertension Shoulder arthritis Unspecified arthropathy, shoulder region SOMNOLENCE Other alteration of consciousness Decreased energy- Primary Other malaise and fatigue Prostate cancer (HCC) Malignant neoplasm of prostate Pulmonary nodule Solitary pulmonary nodule Controlled type 2 diabetes mellitus without complication, without long-term current use of insulin (HCC) DEPRESSION RECURRENT( Moderate) Major depressive disorder, recurrent episode, moderate Seizure (HCC) Other convulsions RAJI (obstructive sleep apnea) Obstructive sleep apnea (adult) (pediatric) Pre-operative examination- Primary Preoperative examination, unspecified Primary hypertension Unspecified essential hypertension Pure hypercholesterolemia Cardiomyopathy, unspecified type (HCC) Coronary artery 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 angina pectoris RAJI (obstructive sleep apnea) AHI 39 Obstructive sleep apnea (adult) (pediatric) Gastroesophageal reflux disease with esophagitis without hemorrhage Prostate cancer (HCC) Malignant neoplasm of prostate Controlled type 2 diabetes mellitus without complication, without long-term current use of insulin (HCC) Pulmonary nodule/lesion, solitary Solitary pulmonary nodule Diaphragmatic hernia without obstruction and without gangrene Pre-operative examination- Primary Preoperative examination, unspecified Cardiomyopathy, unspecified type (HCC) Coronary artery 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 angina pectoris Primary hypertension Unspecified essential hypertension Pure hypercholesterolemia Diaphragmatic hernia without obstruction and without gangrene RAJI (obstructive sleep apnea) AHI 39 Obstructive sleep apnea (adult) (pediatric) Pulmonary nodule/lesion, solitary Solitary pulmonary nodule Gastroesophageal reflux disease with esophagitis without hemorrhage Controlled type 2 diabetes mellitus without complication, without long-term current use of insulin (HCC) Prostate cancer (HCC) Malignant neoplasm of prostate Complaints of memory disturbance Memory loss Status post right hip replacement- Primary Hip joint replacement by other means documented in this encounter [facility] note* Diagnosis Diabetes mellitus type 2, controlled, without complications (HCC)- Primary Type II or unspecified type diabetes mellitus without mention of complication, not stated as uncontrolled Injury of left toe, initial encounter Essential hypertension with goal blood pressure less than 140/90 Pure hypercholesterolemia Controlled type 2 diabetes mellitus without complication, without long-term current use of insulin (HCC)- Primary Chronic right shoulder pain Pain in joint, shoulder region Acute gastritis without mention of hemorrhage Essential hypertension Unspecified essential hypertension Shoulder arthritis Unspecified arthropathy, shoulder region SOMNOLENCE Other alteration of consciousness Decreased energy- Primary Other malaise and fatigue Prostate cancer (HCC) Malignant neoplasm of prostate Pulmonary nodule Solitary pulmonary nodule Controlled type 2 diabetes mellitus without complication, without long-term current use of insulin (HCC) DEPRESSION RECURRENT( Moderate) Major depressive disorder, recurrent episode, moderate Seizure (HCC) Other convulsions RAJI (obstructive sleep apnea) Obstructive sleep apnea (adult) (pediatric) Pre-operative examination- Primary Preoperative examination, unspecified Primary hypertension Unspecified essential hypertension Pure hypercholesterolemia Cardiomyopathy, unspecified type (HCC) Coronary artery 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 angina pectoris RAJI (obstructive sleep apnea) AHI 39 Obstructive sleep apnea (adult) (pediatric) Gastroesophageal reflux disease with esophagitis without hemorrhage Prostate cancer (HCC) Malignant neoplasm of prostate Controlled type 2 diabetes mellitus without complication, without long-term current use of insulin (HCC) Pulmonary nodule/lesion, solitary Solitary pulmonary nodule Diaphragmatic hernia without obstruction and without gangrene Pre-operative examination- Primary Preoperative examination, unspecified Cardiomyopathy, unspecified type (HCC) Coronary artery 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 angina pectoris Primary hypertension Unspecified essential hypertension Pure hypercholesterolemia Diaphragmatic hernia without obstruction and without gangrene RAJI (obstructive sleep apnea) AHI 39 Obstructive sleep apnea (adult) (pediatric) Pulmonary nodule/lesion, solitary Solitary pulmonary nodule Gastroesophageal reflux disease with esophagitis without hemorrhage Controlled type 2 diabetes mellitus without complication, without long-term current use of insulin (HCC) Prostate cancer (HCC) Malignant neoplasm of prostate Complaints of memory disturbance Memory loss Status post right hip replacement- Primary [facility] Diabetes mellitus type 2, controlled, without complications (HCC)- Primary Type II or unspecified type diabetes mellitus without mention of complication, not stated as uncontrolled Injury of left toe, initial encounter Essential hypertension with goal blood pressure less than 140/90 Pure hypercholesterolemia Controlled type 2 diabetes mellitus without complication, without long-term current use of insulin (HCC)- Primary Chronic right shoulder pain Pain in joint, shoulder region Acute gastritis without mention of hemorrhage Essential hypertension Unspecified essential hypertension Shoulder arthritis Unspecified arthropathy, shoulder region SOMNOLENCE Other alteration of consciousness Decreased energy- Primary Other malaise and fatigue Prostate cancer (HCC) Malignant neoplasm of prostate Pulmonary nodule Solitary pulmonary nodule Controlled type 2 diabetes mellitus without complication, without long-term current use of insulin (HCC) DEPRESSION RECURRENT( Moderate) Major depressive disorder, recurrent episode, moderate Seizure (HCC) Other convulsions RAJI (obstructive sleep apnea) Obstructive sleep apnea (adult) (pediatric) Pre-operative examination- Primary Preoperative examination, unspecified Primary hypertension Unspecified essential hypertension Pure hypercholesterolemia Cardiomyopathy, unspecified type (HCC) Coronary artery 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 angina pectoris RAJI (obstructive sleep apnea) AHI 39 Obstructive sleep apnea (adult) (pediatric) Gastroesophageal reflux disease with esophagitis without hemorrhage Prostate cancer (HCC) Malignant neoplasm of prostate Controlled type 2 diabetes mellitus without complication, without long-term current use of insulin (HCC) Pulmonary nodule/lesion, solitary Solitary pulmonary nodule Diaphragmatic hernia without obstruction and without gangrene Pre-operative examination- Primary Preoperative examination, unspecified Cardiomyopathy, unspecified type (HCC) Coronary artery 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 angina pectoris Primary hypertension Unspecified essential hypertension Pure hypercholesterolemia Diaphragmatic hernia without obstruction and without gangrene RAJI (obstructive sleep apnea) AHI 39 Obstructive sleep apnea (adult) (pediatric) Pulmonary nodule/lesion, solitary Solitary pulmonary nodule Gastroesophageal reflux disease with esophagitis without hemorrhage Controlled type 2 diabetes mellitus without complication, without long-term current use of insulin (HCC) Prostate cancer (HCC) Malignant neoplasm of prostate Complaints of memory disturbance Memory loss Status post right hip replacement Hip joint replacement by other means [facility] Diagnosis Diabetes mellitus type 2, controlled, without complications (HCC)- Primary Type II or unspecified type diabetes mellitus without mention of complication, not stated as uncontrolled Injury of left toe, initial encounter Essential hypertension with goal blood pressure less than 140/90 Pure hypercholesterolemia Controlled type 2 diabetes mellitus without complication, without long-term current use of insulin (HCC)- Primary Chronic right shoulder pain Pain in joint, shoulder region Acute gastritis without mention of hemorrhage Essential hypertension Unspecified essential hypertension Shoulder arthritis Unspecified arthropathy, shoulder region SOMNOLENCE Other alteration of consciousness Decreased energy- Primary Other malaise and fatigue Prostate cancer (HCC) Malignant neoplasm of prostate Pulmonary nodule Solitary pulmonary nodule Controlled type 2 diabetes mellitus without complication, without long-term current use of insulin (HCC) DEPRESSION RECURRENT( Moderate) Major depressive disorder, recurrent episode, moderate Seizure (HCC) Other convulsions RAJI (obstructive sleep apnea) Obstructive sleep apnea (adult) (pediatric) Pre-operative examination- Primary Preoperative examination, unspecified Primary hypertension Unspecified essential hypertension Pure hypercholesterolemia Cardiomyopathy, unspecified type (HCC) Coronary artery 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 angina pectoris RAJI (obstructive sleep apnea) AHI 39 Obstructive sleep apnea (adult) (pediatric) Gastroesophageal reflux disease with esophagitis without hemorrhage Prostate cancer (HCC) Malignant neoplasm of prostate Controlled type 2 diabetes mellitus without complication, without long-term current use of insulin (HCC) Pulmonary nodule/lesion, solitary Solitary pulmonary nodule Diaphragmatic hernia without obstruction and without gangrene Pre-operative examination- Primary Preoperative examination, unspecified Cardiomyopathy, unspecified type (HCC) Coronary artery 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 angina pectoris Primary hypertension Unspecified essential hypertension Pure hypercholesterolemia Diaphragmatic hernia without obstruction and without gangrene RAJI (obstructive sleep apnea) AHI 39 Obstructive sleep apnea (adult) (pediatric) Pulmonary nodule/lesion, solitary Solitary pulmonary nodule Gastroesophageal reflux disease with esophagitis without hemorrhage Controlled type 2 diabetes mellitus without complication, without long-term current use of insulin (HCC) Prostate cancer (HCC) Malignant neoplasm of prostate Complaints of memory disturbance Memory loss Gastroesophageal reflux disease with esophagitis without hemorrhage- Primary Controlled type 2 diabetes mellitus without complication, without long-term current use of insulin (HCC) Pure hypercholesterolemia Primary hypertension Unspecified essential hypertension Coronary artery 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 angina pectoris documented in this encounter [facility] note* Diagnosis Diabetes mellitus type 2, controlled, without complications (HCC)- Primary Type II or unspecified type diabetes mellitus without mention of complication, not stated as uncontrolled Injury of left toe, initial encounter Essential hypertension with goal blood pressure less than 140/90 Pure hypercholesterolemia Controlled type 2 diabetes mellitus without complication, without long-term current use of insulin (HCC)- Primary Chronic right shoulder pain Pain in joint, shoulder region Acute gastritis without mention of hemorrhage Essential hypertension Unspecified essential hypertension Shoulder arthritis Unspecified arthropathy, shoulder region SOMNOLENCE Other alteration of consciousness Decreased energy- Primary Other malaise and fatigue Prostate cancer (HCC) Malignant neoplasm of prostate Pulmonary nodule Solitary pulmonary nodule Controlled type 2 diabetes mellitus without complication, without long-term current use of insulin (HCC) DEPRESSION RECURRENT( Moderate) Major depressive disorder, recurrent episode, moderate Seizure (HCC) Other convulsions RAJI (obstructive sleep apnea) Obstructive sleep apnea (adult) (pediatric) Pre-operative examination- Primary Preoperative examination, unspecified Primary hypertension Unspecified essential hypertension Pure hypercholesterolemia Cardiomyopathy, unspecified type (HCC) Coronary artery 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 angina pectoris RAJI (obstructive sleep apnea) AHI 39 Obstructive sleep apnea (adult) (pediatric) Gastroesophageal reflux disease with esophagitis without hemorrhage Prostate cancer (HCC) Malignant neoplasm of prostate Controlled type 2 diabetes mellitus without complication, without long-term current use of insulin (HCC) Pulmonary nodule/lesion, solitary Solitary pulmonary nodule Diaphragmatic hernia without obstruction and without gangrene Pre-operative examination- Primary Preoperative examination, unspecified Cardiomyopathy, unspecified type (HCC) Coronary artery 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 angina pectoris Primary hypertension Unspecified essential hypertension Pure hypercholesterolemia Diaphragmatic hernia without obstruction and without gangrene RAJI (obstructive sleep apnea) AHI 39 Obstructive sleep apnea (adult) (pediatric) Pulmonary nodule/lesion, solitary Solitary pulmonary nodule Gastroesophageal reflux disease with esophagitis without hemorrhage Controlled type 2 diabetes mellitus without complication, without long-term current use of insulin (HCC) Prostate cancer (HCC) Malignant neoplasm of prostate Complaints of memory disturbance Memory loss Status post total replacement of hip, unspecified laterality- Primary Controlled type 2 diabetes mellitus without complication, without long-term current use of insulin (HCC) Elevated liver enzymes Other nonspecific abnormal serum enzyme levels Left upper quadrant abdominal pain Hoarseness Dysphonia Memory difficulties Memory loss Hypomagnesemia Disorders of magnesium metabolism Encounter for immunization Need for other specified prophylactic vaccination against single bacterial disease Screening for diabetic retinopathy Screening for other eye conditions Screening for abdominal aortic aneurysm Screening for other and unspecified cardiovascular conditions Screening for colon cancer Special screening for malignant neoplasms, colon Pure hypercholesterolemia [facility] Diagnosis Diabetes mellitus type 2, controlled, without complications (HCC)- Primary Type II or unspecified type diabetes mellitus without mention of complication, not stated as uncontrolled Injury of left toe, initial encounter Essential hypertension with goal blood pressure less than 140/90 Pure hypercholesterolemia Controlled type 2 diabetes mellitus without complication, without long-term current use of insulin (HCC)- Primary Chronic right shoulder pain Pain in joint, shoulder region Acute gastritis without mention of hemorrhage Essential hypertension Unspecified essential hypertension Shoulder arthritis Unspecified arthropathy, shoulder region SOMNOLENCE Other alteration of consciousness Decreased energy- Primary Other malaise and fatigue Prostate cancer (HCC) Malignant neoplasm of prostate Pulmonary nodule Solitary pulmonary nodule Controlled type 2 diabetes mellitus without complication, without long-term current use of insulin (HCC) DEPRESSION RECURRENT( Moderate) Major depressive disorder, recurrent episode, moderate Seizure (HCC) Other convulsions RAJI (obstructive sleep apnea) Obstructive sleep apnea (adult) (pediatric) Pre-operative examination- Primary Preoperative examination, unspecified Primary hypertension Unspecified essential hypertension Pure hypercholesterolemia Cardiomyopathy, unspecified type (HCC) Coronary artery 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 angina pectoris RAJI (obstructive sleep apnea) AHI 39 Obstructive sleep apnea (adult) (pediatric) Gastroesophageal reflux disease with esophagitis without hemorrhage Prostate cancer (HCC) Malignant neoplasm of prostate Controlled type 2 diabetes mellitus without complication, without long-term current use of insulin (HCC) Pulmonary nodule/lesion, solitary Solitary pulmonary nodule Diaphragmatic hernia without obstruction and without gangrene Pre-operative examination- Primary Preoperative examination, unspecified Cardiomyopathy, unspecified type (HCC) Coronary artery 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 angina pectoris Primary hypertension Unspecified essential hypertension Pure hypercholesterolemia Diaphragmatic hernia without obstruction and without gangrene RAJI (obstructive sleep apnea) AHI 39 Obstructive sleep apnea (adult) (pediatric) Pulmonary nodule/lesion, solitary Solitary pulmonary nodule Gastroesophageal reflux disease with esophagitis without hemorrhage Controlled type 2 diabetes mellitus without complication, without long-term current use of insulin (HCC) Prostate cancer (HCC) Malignant neoplasm of prostate Complaints of memory disturbance Memory loss Status post right hip replacement- Primary Hip joint replacement by other means [facility]* Diagnosis Diabetes mellitus type 2, controlled, without complications (HCC)- Primary Type II or unspecified type diabetes mellitus without mention of complication, not stated as uncontrolled Injury of left toe, initial encounter Essential hypertension with goal blood pressure less than 140/90 Pure hypercholesterolemia Controlled type 2 diabetes mellitus without complication, without long-term current use of insulin (HCC)- Primary Chronic right shoulder pain Pain in joint, shoulder region Acute gastritis without mention of hemorrhage Essential hypertension Unspecified essential hypertension Shoulder arthritis Unspecified arthropathy, shoulder region SOMNOLENCE Other alteration of consciousness Decreased energy- Primary Other malaise and fatigue Prostate cancer (HCC) Malignant neoplasm of prostate Pulmonary nodule Solitary pulmonary nodule Controlled type 2 diabetes mellitus without complication, without long-term current use of insulin (HCC) DEPRESSION RECURRENT( Moderate) Major depressive disorder, recurrent episode, moderate Seizure (HCC) Other convulsions RAJI (obstructive sleep apnea) Obstructive sleep apnea (adult) (pediatric) Pre-operative examination- Primary Preoperative examination, unspecified Primary hypertension Unspecified essential hypertension Pure hypercholesterolemia Cardiomyopathy, unspecified type (HCC) Coronary artery 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 angina pectoris RAJI (obstructive sleep apnea) AHI 39 Obstructive sleep apnea (adult) (pediatric) Gastroesophageal reflux disease with esophagitis without hemorrhage Prostate cancer (HCC) Malignant neoplasm of prostate Controlled type 2 diabetes mellitus without complication, without long-term current use of insulin (HCC) Pulmonary nodule/lesion, solitary Solitary pulmonary nodule Diaphragmatic hernia without obstruction and without gangrene Pre-operative examination- Primary Preoperative examination, unspecified Cardiomyopathy, unspecified type (HCC) Coronary artery 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 angina pectoris Primary hypertension Unspecified essential hypertension Pure hypercholesterolemia Diaphragmatic hernia without obstruction and without gangrene RAJI (obstructive sleep apnea) AHI 39 Obstructive sleep apnea (adult) (pediatric) Pulmonary nodule/lesion, solitary Solitary pulmonary nodule Gastroesophageal reflux disease with esophagitis without hemorrhage Controlled type 2 diabetes mellitus without complication, without long-term current use of insulin (HCC) Prostate cancer (HCC) Malignant neoplasm of prostate Complaints of memory disturbance Memory loss Recurrent major depressive disorder, in full remission [facility] Diagnosis Diabetes mellitus type 2, controlled, without complications (HCC)- Primary Type II or unspecified type diabetes mellitus without mention of complication, not stated as uncontrolled Injury of left toe, initial encounter Essential hypertension with goal blood pressure less than 140/90 Pure hypercholesterolemia Controlled type 2 diabetes mellitus without complication, without long-term current use of insulin (HCC)- Primary Chronic right shoulder pain Pain in joint, shoulder region Acute gastritis without mention of hemorrhage Essential hypertension Unspecified essential hypertension Shoulder arthritis Unspecified arthropathy, shoulder region SOMNOLENCE Other alteration of consciousness Decreased energy- Primary Other malaise and fatigue Prostate cancer (HCC) Malignant neoplasm of prostate Pulmonary nodule Solitary pulmonary nodule Controlled type 2 diabetes mellitus without complication, without long-term current use of insulin (HCC) DEPRESSION RECURRENT( Moderate) Major depressive disorder, recurrent episode, moderate Seizure (HCC) Other convulsions RAJI (obstructive sleep apnea) Obstructive sleep apnea (adult) (pediatric) Pre-operative examination- Primary Preoperative examination, unspecified Primary hypertension Unspecified essential hypertension Pure hypercholesterolemia Cardiomyopathy, unspecified type (HCC) Coronary artery 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 angina pectoris RAJI (obstructive sleep apnea) AHI 39 Obstructive sleep apnea (adult) (pediatric) Gastroesophageal reflux disease with esophagitis without hemorrhage Prostate cancer (HCC) Malignant neoplasm of prostate Controlled type 2 diabetes mellitus without complication, without long-term current use of insulin (HCC) Pulmonary nodule/lesion, solitary Solitary pulmonary nodule Diaphragmatic hernia without obstruction and without gangrene Pre-operative examination- Primary Preoperative examination, unspecified Cardiomyopathy, unspecified type (HCC) Coronary artery 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 angina pectoris Primary hypertension Unspecified essential hypertension Pure hypercholesterolemia Diaphragmatic hernia without obstruction and without gangrene RAJI (obstructive sleep apnea) AHI 39 Obstructive sleep apnea (adult) (pediatric) Pulmonary nodule/lesion, solitary Solitary pulmonary nodule Gastroesophageal reflux disease with esophagitis without hemorrhage Controlled type 2 diabetes mellitus without complication, without long-term current use of insulin (HCC) Prostate cancer (HCC) Malignant neoplasm of prostate Complaints of memory disturbance Memory loss Status post right hip replacement- Primary Hip joint replacement by other means documented in this encounter [facility] course Narrative No data available for this section [facility] Discharge instructions No data available for this section [facility] Patient's home Plan of care note* Visit Details Visit Type -PT SOC Discipline -Physical Therapy Problems Problem Description Start Date Status Goals Interve ntions Medication Education Disciplines: Skilled Services 04/11/2024 Active 1 goal linked to scheduled/document ed intervention 1 goal intervention scheduled/document ed in this visit Sepsis Disciplines: Skilled Services 04/11/2024 Active 1 goal linked to scheduled/document ed intervention 1 goal intervention scheduled/document ed in this visit Physician Specific Parameters Disciplines: Skilled Services 04/11/2024 Active 1 goal linked to scheduled/document ed intervention 2 goal interventions scheduled/document ed in this visit Risk for Falls Disciplines: Skilled Services 04/11/2024 Active 1 goal linked to scheduled/document ed intervention 1 goal intervention scheduled/document ed in this visit Pain Disciplines: Skilled Services 04/11/2024 Active 1 goal linked to scheduled/document ed intervention 1 goal intervention scheduled/document ed in this visit Diabetic Foot Care Disciplines: Skilled Services 04/11/2024 Active 1 goal linked to scheduled/document ed intervention 1 goal intervention scheduled/document ed in this visit Discharge Disciplines: Skilled Services 04/11/2024 Active 1 goal linked to scheduled/document ed intervention 1 goal intervention scheduled/document ed in this visit PT Impaired muscle performance and/or ROM Disciplines: PT 04/11/2024 Active 1 goal linked to scheduled/document ed intervention 1 goal intervention scheduled/document ed in this visit PT Impaired mobility Disciplines: PT 04/11/2024 Active 2 goals linked to scheduled/document ed interventions 2 goal interventions scheduled/document ed in this visit PT Impaired gait Disciplines: PT 04/11/2024 Active 1 goal linked to scheduled/document ed intervention 1 goal intervention scheduled/document ed in this visit PT Impaired balance Disciplines: PT 04/11/2024 Active 1 goal linked to scheduled/document ed intervention 1 goal intervention scheduled/document ed in this visit PT Orthopedic Condition Disciplines: PT 04/11/2024 Active 1 goal linked to scheduled/document ed intervention 3 goal interventions scheduled/document ed in this visit PT Learning Assessment Disciplines: PT 04/11/2024 Active 1 goal linked to scheduled/document ed intervention 1 goal intervention scheduled/document ed in this visit Goals Goal Associated Problem Outcome Goal Met? Visit Notes Patient/caregiver will demonstrate ability to obtain, store, identify and administer ordered medications, keep accurate medication list in home, and adhere to medication schedule Description: Patient/caregiver will demonstrate ability to obtain, store, identify and administer ordered medications, keep accurate medication list in home, and adhere to medication schedule by 05/01/24. Medication Education No Patient/caregiver will be able to identify and report symptoms of sepsis Description: Patient/caregiver will be able to identify signs/symptoms of sepsis infection and will verbalize actions to take if suspected by 05/01/24. Sepsis No Patient to maintain parameters within physician-specified ranges throughout certification period Physician Specific Parameters No Manage Risk for falls Description: Patient/caregiver will verbalize knowledge of individualized fall prevention strategies by 05/01/24. Risk for Falls No Manage Pain Description: Patient/caregiver will verbalize knowledge and understanding of appropriate techniques to control pain, including non-pharmacological techniques. Patient will verbalize or demonstrate an acceptable level of pain as evidenced by a pain score of 0-2/10 and improvement in ability to perform activities of daily living to be achieved by 05/01/24. Pain No Manage diabetic foot care Description: Patient/caregiver will demonstrate basic understanding of and compliance with diabetic self-care management as evidenced by verbalizing purpose of daily foot care and assessment by 05/01/24. Diabetic Foot Care No Manage discharge planning Description: Patient/caregiver will verbalize understanding of ongoing discharge plan provided related to disease management, arrangements for outpatient and/or community services, obtaining medications, supplies, and DME, as needed throughout certification period. Discharge No Improved Muscle Performance and/or ROM Description: LTG: Patient will demonstrate improved muscle performance to meet functional goals as evidenced by ability to tolerate 8 mins of standing activity, to be achieved by 05/01/24. LTG: Patient and/or caregiver will verbalize/demonstrate independence with home exercise program, to improve functional mobility, to be achieved by 05/01/24. PT Impaired muscle performance and/or ROM No Improved Transfers Description: LTG: Patient will demonstrate safe transfers to/from bed, chair and toilet independently with AD, to be achieved by 05/01/24. PT Impaired mobility No Improved Bed Mobility Description: STG: Patient will demonstrate improved ability to position self independently to be achieved by 04/24/24. PT Impaired mobility No Improved Gait Description: LTG: Patient will demonstrate improved gait ability as evidenced by ambulation 200 feet with front wheeled walker independently with AD, to return to safe household ambulation, in order to reach car in the driveway, to be achieved by 05/01/24. PT Impaired gait No Improved Balance Description: LTG: Patient will demonstrate improved standing balance to meet functional goals as evidenced by no falls during home P.T. to be achieved by 05/01/24. PT Impaired balance No Manage Orthopedic Condition Description: Improve patient and/or caregiver understanding of post surgical and/or non-surgical orthopedic intervention management as evidenced by patient and/or caregiver able to verbalize, demonstrate, and teach back instruction, to be achieved by 05/01/24. PT Orthopedic Condition No Demonstrate understanding of education Description: Patient and/or caregiver will understand educational instruction to be achieved by 05/01/24. PT Learning Assessment No Interventions Intervention Associated Problem/Goal Status Variance Visit Notes Medication Education Description: Evaluate/instruct patient/caregiver on obtaining, storing, identifying and administering ordered medications as well as keeping accurate medication list in the home and adhereing to medication schedule Problem:Medication Education Goal:Patient/caregive r will demonstrate ability to obtain, store, identify and administer ordered medications, keep accurate medication list in home, and adhere to medication schedule Completed Patient instructed on importance of keeping accurate medication list in home. Risk of Sepsis Description: Patient is at risk for sepsis. Monitor closely for s/s of sepsis. Problem:Sepsis Goal:Patient/caregive r will be able to identify and report symptoms of sepsis Completed Blood Sugar Description: Notify Dr. Maddox if blood sugar 200 for more than 1 consecutive day. Problem:Physician Specific Parameters Goal:Patient to maintain parameters within physician-specified ranges throughout certification period Completed SPO2 Description: Notify Dr. Maddox if pulse ox is <92% at rest. Problem:Physician Specific Parameters Goal:Patient to maintain parameters within physician-specified ranges throughout certification period Completed Instruct on individual fall risk factors and strategies to prevent falls and injuries caused by falls. Problem:Risk for Falls Goal:Manage Risk for falls Completed PT: Patient instructed on Managing Impaired Functional Mobility: Use assistive device(s): front wheeled walker Managing Pain Instruct on pain and instruct on strategies to control pain Problem:Pain Goal:Manage Pain Completed patient instructed on techniques to control pain including Non-Pharmacological measures; rest, positioning/elevation and mobility/therapeutic exercise. Monitor lower extremities for skin lesions and educate on proper foot care Problem:Diabetic Foot Care Goal:Manage diabetic foot care Completed patient instructed on diabetic foot care including daily skin inspection. Instruct on ongoing discharge plan Problem:Discharge Goal:Manage discharge planning Completed Ongoing Discharge plan: Discharge plan discussed with patient including frequency and duration for home PT and plan for transition to: live independently at home without ongoing services. Physical Therapy Therapeutic Exercises Problem:PT Impaired muscle performance and/or ROM Goal:Improved Muscle Performance and/or ROM Completed patient instructed on strengthening and range of motion exercises including ap, qs, gs, laq 10 times each with verbal cues for sequence. patient instructed to perform home exercise program twice a day Physical Therapy Transfer Training Problem:PT Impaired mobility Goal:Improved Transfers Completed Transfer training and instruction to patient on safe transfers to and from chair and toilet with supervision and verbal cues for sequence. Physical Therapy Bed Mobility Training Problem:PT Impaired mobility Goal:Improved Bed Mobility Completed Bed mobility training and instruction to patient, including repositioning self with supervision and verbal cues for sequence. Physical Therapy Gait Training Problem:PT Impaired gait Goal:Improved Gait Completed Gait training and instruction to patient on safe ambulation with front wheeled walker for 50 feet with supervision, with verbal cues for corrections of gait deviations including sequence. Physical Therapy Balance Training Problem:PT Impaired balance Goal:Improved Balance Completed Developed, implemented, and instructed patient on standing balance exercises including ambulation with fww. Instruct on orthopedic precautions and weight bearing restrictions Description: Orthopedic precautions including right anterior hip: no hip extension past neutral and avoid hip external rotation with extension or in extreme positions. Weight bearing restrictions include: 50% PWB of involved extremity. Problem:PT Orthopedic Condition Goal:Manage Orthopedic Condition Completed patient instructed on orthopedic precautions and weight bearing restrictions. Instruct on management of edema Problem:PT Orthopedic Condition Goal:Manage Orthopedic Condition Completed Instruct patient on management of edema including elevation of bilat LE above the level of the heart. Instruct on self-management of post surgical and/or non-surgical orthopedic intervention Problem:PT Orthopedic Condition Goal:Manage Orthopedic Condition Completed patient instructed on managagement of orthopedic condition. Instruct and educate on knowledge deficits Problem:PT Learning Assessment Goal:Demonstrate understanding of education Completed patient verbalize and/or demonstrate understanding of physical therapy education including fall prevention strategies, home safety, functional activity and home exercise program. Education methods include: verbal cues. Further education required to improve knowledge and compliance with fall prevention strategies, home safety, functional activity and home exercise program. [facility] Visit Details Visit Type -[employer] ROUTINE Discipline -Physical Therapy Problems Problem Description Start Date Status Goals Interve ntions Medication Education Disciplines: Skilled Services 04/11/2024 Active 1 goal linked to scheduled/document ed intervention 1 goal intervention scheduled/document ed in this visit Sepsis Disciplines: Skilled Services 04/11/2024 Active 1 goal linked to scheduled/document ed intervention 1 goal intervention scheduled/document ed in this visit Physician Specific Parameters Disciplines: Skilled Services 04/11/2024 Active 1 goal linked to scheduled/document ed intervention 2 goal interventions scheduled/document ed in this visit Risk for Falls Disciplines: Skilled Services 04/11/2024 Active 1 goal linked to scheduled/document ed intervention 1 goal intervention scheduled/document ed in this visit Pain Disciplines: Skilled Services 04/11/2024 Active 1 goal linked to scheduled/document ed intervention 1 goal intervention scheduled/document ed in this visit High Risk Medications Disciplines: Skilled Services 04/11/2024 Active 1 goal linked to scheduled/document ed intervention 2 goal interventions scheduled/document ed in this visit Discharge Disciplines: Skilled Services 04/11/2024 Active 1 goal linked to scheduled/document ed intervention 1 goal intervention scheduled/document ed in this visit PT Impaired muscle performance and/or ROM Disciplines: PT 04/11/2024 Active 1 goal linked to scheduled/document ed intervention 1 goal intervention scheduled/document ed in this visit PT Impaired mobility Disciplines: PT 04/11/2024 Active 1 goal linked to scheduled/document ed intervention 1 goal intervention scheduled/document ed in this visit PT Impaired gait Disciplines: PT 04/11/2024 Active 1 goal linked to scheduled/document ed intervention 1 goal intervention scheduled/document ed in this visit PT Orthopedic Condition Disciplines: PT 04/11/2024 Active 1 goal linked to scheduled/document ed intervention 4 goal interventions scheduled/document ed in this visit PT Learning Assessment Disciplines: PT 04/11/2024 Active 1 goal linked to scheduled/document ed intervention 1 goal intervention scheduled/document ed in this visit Goals Goal Associated Problem Outcome Goal Met? Visit Notes Patient/caregiver will demonstrate ability to obtain, store, identify and administer ordered medications, keep accurate medication list in home, and adhere to medication schedule Description: Patient/caregiver will demonstrate ability to obtain, store, identify and administer ordered medications, keep accurate medication list in home, and adhere to medication schedule by 05/01/24. Medication Education No Patient/caregiver will be able to identify and report symptoms of sepsis Description: Patient/caregiver will be able to identify signs/symptoms of sepsis infection and will verbalize actions to take if suspected by 05/01/24. Sepsis No Patient to maintain parameters within physician-specified ranges throughout certification period Physician Specific Parameters No Manage Risk for falls Description: Patient/caregiver will verbalize knowledge of individualized fall prevention strategies by 05/01/24. Risk for Falls No Manage Pain Description: Patient/caregiver will verbalize knowledge and understanding of appropriate techniques to control pain, including non-pharmacological techniques. Patient will verbalize or demonstrate an acceptable level of pain as evidenced by a pain score of 0-2/10 and improvement in ability to perform activities of daily living to be achieved by 05/01/24. Pain No Patient/caregiver will teach back high risk medication side effect and precaution education Description: STG Patient/caregiver will verbalize understanding of high risk medication side effects and precautions to be achieved by 04/24/24. LTG Patient/caregiver will continue to verbalize understanding of high risk medication side effects and precautions throughout certification period. High Risk Medications No Manage discharge planning Description: Patient/caregiver will verbalize understanding of ongoing discharge plan provided related to disease management, arrangements for outpatient and/or community services, obtaining medications, supplies, and DME, as needed throughout certification period. Discharge No Improved Muscle Performance and/or ROM Description: LTG: Patient will demonstrate improved muscle performance to meet functional goals as evidenced by ability to tolerate 8 mins of standing activity, to be achieved by 05/01/24. LTG: Patient and/or caregiver will verbalize/demonstrate independence with home exercise program, to improve functional mobility, to be achieved by 05/01/24. PT Impaired muscle performance and/or ROM No Improved Transfers Description: LTG: Patient will demonstrate safe transfers to/from bed, chair and toilet independently with AD, to be achieved by 05/01/24. PT Impaired mobility No Improved Gait Description: LTG: Patient will demonstrate improved gait ability as evidenced by ambulation 200 feet with front wheeled walker independently with AD, to return to safe household ambulation, in order to reach car in the driveway, to be achieved by 05/01/24. PT Impaired gait No Manage Orthopedic Condition Description: Improve patient and/or caregiver understanding of post surgical and/or non-surgical orthopedic intervention management as evidenced by patient and/or caregiver able to verbalize, demonstrate, and teach back instruction, to be achieved by 05/01/24. PT Orthopedic Condition No Demonstrate understanding of education Description: Patient and/or caregiver will understand educational instruction to be achieved by 05/01/24. PT Learning Assessment No Interventions Intervention Associated Problem/Goal Status Variance Visit Notes Medication Education Description: Evaluate/instruct patient/caregiver on obtaining, storing, identifying and administering ordered medications as well as keeping accurate medication list in the home and adhereing to medication schedule Problem:Medication Education Goal:Patient/caregive r will demonstrate ability to obtain, store, identify and administer ordered medications, keep accurate medication list in home, and adhere to medication schedule Completed Caregiver instructed on importance of keeping accurate medication list in home and adhering to medication schedule. Risk of Sepsis Description: Patient is at risk for sepsis. Monitor closely for s/s of sepsis. Problem:Sepsis Goal:Patient/caregive r will be able to identify and report symptoms of sepsis Completed Blood Sugar Description: Notify Dr. Maddox if blood sugar 200 for more than 1 consecutive day. Problem:Physician Specific Parameters Goal:Patient to maintain parameters within physician-specified ranges throughout certification period Completed SPO2 Description: Notify Dr. Maddox if pulse ox is <92% at rest. Problem:Physician Specific Parameters Goal:Patient to maintain parameters within physician-specified ranges throughout certification period Completed Instruct on individual fall risk factors and strategies to prevent falls and injuries caused by falls. Problem:Risk for Falls Goal:Manage Risk for falls Completed PT: Patient and Caregiver instructed on Managing Impaired Functional Mobility: Use assistive device(s): front wheeled walker Managing Pain Instruct on pain and instruct on strategies to control pain Problem:Pain Goal:Manage Pain Completed patient instructed on techniques to control pain including Pharmacological measures and Non-Pharmacological measures; positioning/elevation and use of thermal modalities, apply ice to affected area for the following prescribed frequency: prn. Opioids- educated on high risk medication Problem:High Risk Medications Goal:Patient/caregive r will teach back high risk medication side effect and precaution education Completed patient and caregiver educated on taking medication(s) as prescribed by provider. Do not stop medication or alter doses without speaking with your provider. Discuss medication effectiveness or side effect concerns with your provider and home care team. Only take opioids as prescribed, do not share your medications, and take proper precautions in storing and properly disposing of opioids once no longer needed. Possible side effects of opioid medication including sedation, decreased rate of breathing, and constipation. Report over sedation to prescribing provider and practice deep breathing techniques every hour while awake. Prevent constipation by increasing water and fiber intake, increasing activity as tolerated, and use stool softener(s) as prescribed. Antiplatelet- educated on high risk medication Problem:High Risk Medications Goal:Patient/caregive r will teach back high risk medication side effect and precaution education Completed patient and caregiver educated on taking medication(s) as prescribed by provider. Do not stop medication or alter doses without speaking with your provider. Discuss medication effectiveness or side effect concerns with your provider and home care team. Discuss all medications you are taking, even [id number] medicines, with your provider and pharmacist since many drugs can interact with antiplatelet medications. If you forget to take a dose, DO NOT take a double dose. Take the missed dose as soon as possible on the same day. DO NOT take a double dose the next day to make up for the missed dose. Watch for signs of abnormal or excessive bleeding and bruising (refer to Bleeding Precautions education). Call your health care provider right away if you suspect something is wrong. Instruct on ongoing discharge plan Problem:Discharge Goal:Manage discharge planning Completed Ongoing Discharge plan: Discharge plan discussed with patient and caregiver including frequency and duration for home PT and plan for transition to: live independently at home without ongoing services. Physical Therapy Therapeutic Exercises Problem:PT Impaired muscle performance and/or ROM Goal:Improved Muscle Performance and/or ROM Completed patient and caregiver instructed on strengthening exercises including AP, qs,gs, hip add and , saq w/ manual assist with verbal, tactile, visual and written cues for form and hold times. patient instructed to perform home exercise program twice a day which included above ex. Physical Therapy Transfer Training Problem:PT Impaired mobility Goal:Improved Transfers Completed Transfer training and instruction to patient and caregiver on safe transfers to and from chair with supervision and verbal cues for reaching back for chair Physical Therapy Gait Training Problem:PT Impaired gait Goal:Improved Gait Completed Gait training and instruction to patient and caregiver on safe ambulation with front wheeled walker for 50 feet with stand by assist, with verbal and visual cues for corrections of gait deviations including 50% WB RLE vs putting all his weight on UE to avoid any WB on RLE. Instruct on orthopedic precautions and weight bearing restrictions Description: Orthopedic precautions including right anterior hip: no hip extension past neutral and avoid hip external rotation with extension or in extreme positions. Weight bearing restrictions include: 50% PWB of involved extremity. Problem:PT Orthopedic Condition Goal:Manage Orthopedic Condition Completed patient and caregiver instructed on orthopedic precautions and weight bearing restrictions. Instruct on management of edema Problem:PT Orthopedic Condition Goal:Manage Orthopedic Condition Completed Instruct patient and caregiver on management of edema including elevation of RLE above the level of the heart and ice. Physical therapy to perform surgical incision/wound management Description: Change abd bandage on 04/13/24 and remove bandage on 04/15/24 and leave open to air unless drainage present then cover with abd until drainage has stopped. Verbal order provided by Dr. Maddox on 04/11/24. If no drainage is present, leave open to air; if drainage is present, cover with clean dressing and contact provider and PT renal case manager. Problem:PT Orthopedic Condition Goal:Manage Orthopedic Condition Completed Intervention completed this date. Instruct on self-management of post surgical and/or non-surgical orthopedic intervention Problem:PT Orthopedic Condition Goal:Manage Orthopedic Condition Completed patient and caregiver instructed on signs and symptoms of infection, signs and symptoms of DVT/PE, follow provider guidance for showering , instructed on when to call provider and instructed on when to call 911. Instruct and educate on knowledge deficits Problem:PT Learning Assessment Goal:Demonstrate understanding of education Completed patient and caregiver verbalize and/or demonstrate understanding of physical therapy education including weight bearing precautions, surgical precautions, pain management, integumentary and incision/wound care management and home exercise program. Education methods include: verbal cues, tactile cues, written instructions and visual cues. Further education required to improve knowledge and compliance with home exercise program. [facility] Visit Details Visit Type -SPONGE [employer] ROUTINE Discipline -Physical Therapy Problems Problem Description Start Date Status Goals Interve ntions Medication Education Disciplines: Skilled Services 04/11/2024 Active 1 goal linked to scheduled/document ed intervention 1 goal intervention scheduled/document ed in this visit Sepsis Disciplines: Skilled Services 04/11/2024 Active 1 goal linked to scheduled/document ed intervention 1 goal intervention scheduled/document ed in this visit Physician Specific Parameters Disciplines: Skilled Services 04/11/2024 Active 1 goal linked to scheduled/document ed intervention 2 goal interventions scheduled/document ed in this visit Risk for Falls Disciplines: Skilled Services 04/11/2024 Active 1 goal linked to scheduled/document ed intervention 1 goal intervention scheduled/document ed in this visit Pain Disciplines: Skilled Services 04/11/2024 Active 1 goal linked to scheduled/document ed intervention 1 goal intervention scheduled/document ed in this visit Diabetic Foot Care Disciplines: Skilled Services 04/11/2024 Active 1 goal linked to scheduled/document ed intervention 1 goal intervention scheduled/document ed in this visit High Risk Medications Disciplines: Skilled Services 04/11/2024 Active 1 goal linked to scheduled/document ed intervention 1 goal intervention scheduled/document ed in this visit Discharge Disciplines: Skilled Services 04/11/2024 Active 1 goal linked to scheduled/document ed intervention 1 goal intervention scheduled/document ed in this visit PT Impaired muscle performance and/or ROM Disciplines: PT 04/11/2024 Active 1 goal linked to scheduled/document ed intervention 1 goal intervention scheduled/document ed in this visit PT Impaired gait Disciplines: PT 04/11/2024 Active 1 goal linked to scheduled/document ed intervention 1 goal intervention scheduled/document ed in this visit PT Impaired balance Disciplines: PT 04/11/2024 Active 1 goal linked to scheduled/document ed intervention 1 goal intervention scheduled/document ed in this visit PT Orthopedic Condition Disciplines: PT 04/11/2024 Active 1 goal linked to scheduled/document ed intervention 4 goal interventions scheduled/document ed in this visit PT Learning Assessment Disciplines: PT 04/11/2024 Active 1 goal linked to scheduled/document ed intervention 1 goal intervention scheduled/document ed in this visit Goals Goal Associated Problem Outcome Goal Met? Visit Notes Patient/caregiver will demonstrate ability to obtain, store, identify and administer ordered medications, keep accurate medication list in home, and adhere to medication schedule Description: Patient/caregiver will demonstrate ability to obtain, store, identify and administer ordered medications, keep accurate medication list in home, and adhere to medication schedule by 05/01/24. Medication Education No Patient/caregiver will be able to identify and report symptoms of sepsis Description: Patient/caregiver will be able to identify signs/symptoms of sepsis infection and will verbalize actions to take if suspected by 05/01/24. Sepsis No Patient to maintain parameters within physician-specified ranges throughout certification period Physician Specific Parameters No Manage Risk for falls Description: Patient/caregiver will verbalize knowledge of individualized fall prevention strategies by 05/01/24. Risk for Falls No Manage Pain Description: Patient/caregiver will verbalize knowledge and understanding of appropriate techniques to control pain, including non-pharmacological techniques. Patient will verbalize or demonstrate an acceptable level of pain as evidenced by a pain score of 0-2/10 and improvement in ability to perform activities of daily living to be achieved by 05/01/24. Pain No Manage diabetic foot care Description: Patient/caregiver will demonstrate basic understanding of and compliance with diabetic self-care management as evidenced by verbalizing purpose of daily foot care and assessment by 05/01/24. Diabetic Foot Care No Patient/caregiver will teach back high risk medication side effect and precaution education Description: STG Patient/caregiver will verbalize understanding of high risk medication side effects and precautions to be achieved by 04/24/24. LTG Patient/caregiver will continue to verbalize understanding of high risk medication side effects and precautions throughout certification period. High Risk Medications No Manage discharge planning Description: Patient/caregiver will verbalize understanding of ongoing discharge plan provided related to disease management, arrangements for outpatient and/or community services, obtaining medications, supplies, and DME, as needed throughout certification period. Discharge No Improved Muscle Performance and/or ROM Description: LTG: Patient will demonstrate improved muscle performance to meet functional goals as evidenced by ability to tolerate 8 mins of standing activity, to be achieved by 05/01/24. LTG: Patient and/or caregiver will verbalize/demonstrate independence with home exercise program, to improve functional mobility, to be achieved by 05/01/24. PT Impaired muscle performance and/or ROM No Improved Gait Description: LTG: Patient will demonstrate improved gait ability as evidenced by ambulation 200 feet with front wheeled walker independently with AD, to return to safe household ambulation, in order to reach car in the driveway, to be achieved by 05/01/24. PT Impaired gait No Improved Balance Description: LTG: Patient will demonstrate improved standing balance to meet functional goals as evidenced by no falls during home P.T. to be achieved by 05/01/24. PT Impaired balance No Manage Orthopedic Condition Description: Improve patient and/or caregiver understanding of post surgical and/or non-surgical orthopedic intervention management as evidenced by patient and/or caregiver able to verbalize, demonstrate, and teach back instruction, to be achieved by 05/01/24. PT Orthopedic Condition No Demonstrate understanding of education Description: Patient and/or caregiver will understand educational instruction to be achieved by 05/01/24. PT Learning Assessment No Interventions Intervention Associated Problem/Goal Status Variance Visit Notes Medication Education Description: Evaluate/instruct patient/caregiver on obtaining, storing, identifying and administering ordered medications as well as keeping accurate medication list in the home and adhereing to medication schedule Problem:Medication Education Goal:Patient/caregive r will demonstrate ability to obtain, store, identify and administer ordered medications, keep accurate medication list in home, and adhere to medication schedule Completed Patient instructed on importance of keeping accurate medication list in home and adhering to medication schedule. Risk of Sepsis Description: Patient is at risk for sepsis. Monitor closely for s/s of sepsis. Problem:Sepsis Goal:Patient/caregive r will be able to identify and report symptoms of sepsis Completed Blood Sugar Description: Notify Dr. Maddox if blood sugar 200 for more than 1 consecutive day. Problem:Physician Specific Parameters Goal:Patient to maintain parameters within physician-specified ranges throughout certification period Completed SPO2 Description: Notify Dr. Maddox if pulse ox is <92% at rest. Problem:Physician Specific Parameters Goal:Patient to maintain parameters within physician-specified ranges throughout certification period Completed Instruct on individual fall risk factors and strategies to prevent falls and injuries caused by falls. Problem:Risk for Falls Goal:Manage Risk for falls Completed PT: Patient and Caregiver instructed on Eliminating Environmental Hazards: Keep pathways clear Instruct on pain and instruct on strategies to control pain Problem:Pain Goal:Manage Pain Completed patient and caregiver instructed on techniques to control pain including Pharmacological measures and Non-Pharmacological measures; positioning/elevation and use of thermal modalities, apply ice to affected area for the following prescribed frequency: prn. Monitor lower extremities for skin lesions and educate on proper foot care Problem:Diabetic Foot Care Goal:Manage diabetic foot care Completed patient and caregiver instructed on diabetic foot care including wearing proper footwear/avoiding going barefoot. Opioids- educated on high risk medication Problem:High Risk Medications Goal:Patient/caregive r will teach back high risk medication side effect and precaution education Completed patient and caregiver educated on taking medication(s) as prescribed by provider. Do not stop medication or alter doses without speaking with your provider. Discuss medication effectiveness or side effect concerns with your provider and home care team. Only take opioids as prescribed, do not share your medications, and take proper precautions in storing and properly disposing of opioids once no longer needed. Possible side effects of opioid medication including sedation, decreased rate of breathing, and constipation. Report over sedation to prescribing provider and practice deep breathing techniques every hour while awake. Prevent constipation by increasing water and fiber intake, increasing activity as tolerated, and use stool softener(s) as prescribed. Instruct on ongoing discharge plan Problem:Discharge Goal:Manage discharge planning Completed Ongoing Discharge plan: Discharge plan discussed with patient including frequency and duration for home PT and plan for transition to: live independently at home without ongoing services. Physical Therapy Therapeutic Exercises Problem:PT Impaired muscle performance and/or ROM Goal:Improved Muscle Performance and/or ROM Completed patient and caregiver instructed on strengthening exercises including ap,qs,gs,hip abd and add, saq and heel slides. standing hams curl x's 10 each with verbal, visual and written cues for form and progressions. patient and caregiver instructed to perform home exercise program twice a day which included above ex. Physical Therapy Gait Training Problem:PT Impaired gait Goal:Improved Gait Completed Gait training and instruction to patient and caregiver on safe ambulation with front wheeled walker for 2x'50 feet with supervision, with verbal cues for corrections of gait deviations including knee flexion vs stiff knee pattern. Physical Therapy Balance Training Problem:PT Impaired balance Goal:Improved Balance Completed Developed, implemented, and instructed patient on standing balance exercises including standing ex. Instruct on orthopedic precautions and weight bearing restrictions Description: Orthopedic precautions including right anterior hip: no hip extension past neutral and avoid hip external rotation with extension or in extreme positions. Weight bearing restrictions include: 50% PWB of involved extremity. Problem:PT Orthopedic Condition Goal:Manage Orthopedic Condition Completed patient and caregiver instructed on orthopedic precautions and weight bearing restrictions. Instruct on management of edema Problem:PT Orthopedic Condition Goal:Manage Orthopedic Condition Completed Instruct patient on management of edema including elevation of rle above the level of the heart and ice. Physical therapy to perform surgical incision/wound management Description: Change abd bandage on 04/13/24 and remove bandage on 04/15/24 and leave open to air unless drainage present then cover with abd until drainage has stopped. Verbal order provided by Dr. Maddox on 04/11/24. If no drainage is present, leave open to air; if drainage is present, cover with clean dressing and contact provider and PT renal case manager. Problem:PT Orthopedic Condition Goal:Manage Orthopedic Condition Completed Intervention completed this date. With patients permission, picture obtained and uploaded to chart Instruct on self-management of post surgical and/or non-surgical orthopedic intervention Problem:PT Orthopedic Condition Goal:Manage Orthopedic Condition Completed patient and caregiver instructed on incision care: no lotions,creams or rubbing , staying well hydrated, signs and symptoms of infection, signs and symptoms of DVT/PE, follow provider guidance for showering , instructed on when to call provider and instructed on when to call 911. Instruct and educate on knowledge deficits Problem:PT Learning Assessment Goal:Demonstrate understanding of education Completed patient and caregiver verbalize and/or demonstrate understanding of physical therapy education including weight bearing precautions, surgical precautions, pain management, integumentary and incision/wound care management and home exercise program. Education methods include: verbal cues, written instructions and visual cues. Further education required to improve knowledge and compliance with functional activity and home exercise program. [facility] Visit Details Visit Type -SPONGE [employer] ROUTINE Discipline -Physical Therapy Problems Problem Description Start Date Status Goals Interve ntions Medication Education Disciplines: Skilled Services 04/11/2024 Active 1 goal linked to scheduled/document ed intervention 1 goal intervention scheduled/document ed in this visit Sepsis Disciplines: Skilled Services 04/11/2024 Active 1 goal linked to scheduled/document ed intervention 1 goal intervention scheduled/document ed in this visit Physician Specific Parameters Disciplines: Skilled Services 04/11/2024 Active 1 goal linked to scheduled/document ed intervention 2 goal interventions scheduled/document ed in this visit Risk for Falls Disciplines: Skilled Services 04/11/2024 Active 1 goal linked to scheduled/document ed intervention 1 goal intervention scheduled/document ed in this visit Pain Disciplines: Skilled Services 04/11/2024 Active 1 goal linked to scheduled/document ed intervention 1 goal intervention scheduled/document ed in this visit High Risk Medications Disciplines: Skilled Services 04/11/2024 Active 1 goal linked to scheduled/document ed intervention 1 goal intervention scheduled/document ed in this visit Discharge Disciplines: Skilled Services 04/11/2024 Active 1 goal linked to scheduled/document ed intervention 1 goal intervention scheduled/document ed in this visit PT Impaired muscle performance and/or ROM Disciplines: PT 04/11/2024 Active 1 goal linked to scheduled/document ed intervention 1 goal intervention scheduled/document ed in this visit PT Impaired gait Disciplines: PT 04/11/2024 Active 2 goals linked to scheduled/document ed interventions 2 goal interventions scheduled/document ed in this visit PT Orthopedic Condition Disciplines: PT 04/11/2024 Active 1 goal linked to scheduled/document ed intervention 3 goal interventions scheduled/document ed in this visit PT Learning Assessment Disciplines: PT 04/11/2024 Active 1 goal linked to scheduled/document ed intervention 1 goal intervention scheduled/document ed in this visit Goals Goal Associated Problem Outcome Goal Met? Visit Notes Patient/caregiver will demonstrate ability to obtain, store, identify and administer ordered medications, keep accurate medication list in home, and adhere to medication schedule Description: Patient/caregiver will demonstrate ability to obtain, store, identify and administer ordered medications, keep accurate medication list in home, and adhere to medication schedule by 05/01/24. Medication Education No Patient/caregiver will be able to identify and report symptoms of sepsis Description: Patient/caregiver will be able to identify signs/symptoms of sepsis infection and will verbalize actions to take if suspected by 05/01/24. Sepsis No Patient to maintain parameters within physician-specified ranges throughout certification period Physician Specific Parameters No Manage Risk for falls Description: Patient/caregiver will verbalize knowledge of individualized fall prevention strategies by 05/01/24. Risk for Falls No Manage Pain Description: Patient/caregiver will verbalize knowledge and understanding of appropriate techniques to control pain, including non-pharmacological techniques. Patient will verbalize or demonstrate an acceptable level of pain as evidenced by a pain score of 0-2/10 and improvement in ability to perform activities of daily living to be achieved by 05/01/24. Pain No Patient/caregiver will teach back high risk medication side effect and precaution education Description: STG Patient/caregiver will verbalize understanding of high risk medication side effects and precautions to be achieved by 04/24/24. LTG Patient/caregiver will continue to verbalize understanding of high risk medication side effects and precautions throughout certification period. High Risk Medications No Manage discharge planning Description: Patient/caregiver will verbalize understanding of ongoing discharge plan provided related to disease management, arrangements for outpatient and/or community services, obtaining medications, supplies, and DME, as needed throughout certification period. Discharge No Improved Muscle Performance and/or ROM Description: LTG: Patient will demonstrate improved muscle performance to meet functional goals as evidenced by ability to tolerate 8 mins of standing activity, to be achieved by 05/01/24. LTG: Patient and/or caregiver will verbalize/demonstrate independence with home exercise program, to improve functional mobility, to be achieved by 05/01/24. PT Impaired muscle performance and/or ROM No Improved Stair Climbing Description: LTG: Patient will demonstrate improved stair negotiation as evidenced by ascend/descend 3 steps with railing independently, to safely exit home, to be achieved by 05/01/24. PT Impaired gait No Improved Gait Description: LTG: Patient will demonstrate improved gait ability as evidenced by ambulation 200 feet with front wheeled walker independently with AD, to return to safe household ambulation, in order to reach car in the driveway, to be achieved by 05/01/24. PT Impaired gait No Manage Orthopedic Condition Description: Improve patient and/or caregiver understanding of post surgical and/or non-surgical orthopedic intervention management as evidenced by patient and/or caregiver able to verbalize, demonstrate, and teach back instruction, to be achieved by 05/01/24. PT Orthopedic Condition No Demonstrate understanding of education Description: Patient and/or caregiver will understand educational instruction to be achieved by 05/01/24. PT Learning Assessment No Interventions Intervention Associated Problem/Goal Status Variance Visit Notes Medication Education Description: Evaluate/instruct patient/caregiver on obtaining, storing, identifying and administering ordered medications as well as keeping accurate medication list in the home and adhereing to medication schedule Problem:Medication Education Goal:Patient/caregive r will demonstrate ability to obtain, store, identify and administer ordered medications, keep accurate medication list in home, and adhere to medication schedule Completed Patient and Caregiver instructed on importance of keeping accurate medication list in home. Risk of Sepsis Description: Patient is at risk for sepsis. Monitor closely for s/s of sepsis. Problem:Sepsis Goal:Patient/caregive r will be able to identify and report symptoms of sepsis Completed Blood Sugar Description: Notify Dr. Maddox if blood sugar 200 for more than 1 consecutive day. Problem:Physician Specific Parameters Goal:Patient to maintain parameters within physician-specified ranges throughout certification period Completed SPO2 Description: Notify Dr. Maddox if pulse ox is <92% at rest. Problem:Physician Specific Parameters Goal:Patient to maintain parameters within physician-specified ranges throughout certification period Completed Instruct on individual fall risk factors and strategies to prevent falls and injuries caused by falls. Problem:Risk for Falls Goal:Manage Risk for falls Completed PT: Patient and Caregiver instructed on Eliminating Environmental Hazards: keep pets out of way Instruct on pain and instruct on strategies to control pain Problem:Pain Goal:Manage Pain Completed patient and caregiver instructed on techniques to control pain including Pharmacological measures and Non-Pharmacological measures; positioning/elevation and use of thermal modalities, apply ice to affected area for the following prescribed frequency: prn. Hypoglycemic (including insulin)- educated on high risk medication Problem:High Risk Medications Goal:Patient/caregive r will teach back high risk medication side effect and precaution education Completed patient and caregiver educated on taking medication(s) as prescribed by provider. Do not stop medication or skip/alter doses without speaking with your provider. Discuss medication effectiveness or side effect concerns with your provider and home care team. Check blood sugars and keep log as ordered by provider. Monitor for side effects of hypoglycemia such as increased weakness or shaking, moist skin, sweating, fast heartbeat, dizziness, sudden hunger, confusion, pale skin, numbness in mouth or tongue, irritability, nervousness, unsteadiness, nightmares, bad dreams, and restless sleep. Checking your blood sugar routinely and eating a consistent diabetic diet can help regulate blood sugars and reduce side effects. Instruct on ongoing discharge plan Problem:Discharge Goal:Manage discharge planning Completed Ongoing Discharge plan: Discharge plan discussed with patient and caregiver including frequency and duration for home PT and plan for transition to: live independently at home without ongoing services. Physical Therapy Therapeutic Exercises Problem:PT Impaired muscle performance and/or ROM Goal:Improved Muscle Performance and/or ROM Completed patient and caregiver instructed on strengthening exercises including standing RLE hams curls, hip abd and slr x's 10 each. supine ap,qs,gs,saq and heel slides x's 10 each with verbal, visual and written cues for form and hold times. patient instructed to perform home exercise program twice a day which included above ex. Physical Therapy Stair Training Problem:PT Impaired gait Goal:Improved Stair Climbing Completed Stair training and instruction to patient and caregiver on safe stair climbing, ascend/descend 2 steps, without railing and with ww with stand by assist and verbal cues for correct step pattern. Physical Therapy Gait Training Problem:PT Impaired gait Goal:Improved Gait Completed Gait training and instruction to patient on safe ambulation with front wheeled walker for 3x'50 feet with supervision, with verbal cues for corrections of gait deviations including PWB. Instruct on orthopedic precautions and weight bearing restrictions Description: Orthopedic precautions including right anterior hip: no hip extension past neutral and avoid hip external rotation with extension or in extreme positions. Weight bearing restrictions include: 50% PWB of involved extremity. Problem:PT Orthopedic Condition Goal:Manage Orthopedic Condition Completed patient and caregiver instructed on orthopedic precautions and weight bearing restrictions. Instruct on management of edema Problem:PT Orthopedic Condition Goal:Manage Orthopedic Condition Completed Instruct patient and caregiver on management of edema including elevation of RLE above the level of the heart and ice. Instruct on self-management of post surgical and/or non-surgical orthopedic intervention Problem:PT Orthopedic Condition Goal:Manage Orthopedic Condition Completed patient and caregiver instructed on signs and symptoms of infection, signs and symptoms of DVT/PE, instructed on when to call provider and instructed on when to call 911. Instruct and educate on knowledge deficits Problem:PT Learning Assessment Goal:Demonstrate understanding of education Completed patient and caregiver verbalize and/or demonstrate understanding of physical therapy education including pain management and home exercise program. Education methods include: verbal cues and visual cues. Further education required to improve knowledge and compliance with home exercise program. [facility] Visit Details Visit Type -SPONGE [employer]KER ROUTINE Discipline -Physical Therapy Problems Problem Description Start Date Status Goals Interve ntions Medication Education Disciplines: Skilled Services 04/11/2024 Active 1 goal linked to scheduled/document ed intervention 1 goal intervention scheduled/document ed in this visit Sepsis Disciplines: Skilled Services 04/11/2024 Active 1 goal linked to scheduled/document ed intervention 1 goal intervention scheduled/document ed in this visit Physician Specific Parameters Disciplines: Skilled Services 04/11/2024 Active 1 goal linked to scheduled/document ed intervention 2 goal interventions scheduled/document ed in this visit Risk for Falls Disciplines: Skilled Services 04/11/2024 Active 1 goal linked to scheduled/document ed intervention 1 goal intervention scheduled/document ed in this visit Pain Disciplines: Skilled Services 04/11/2024 Active 1 goal linked to scheduled/document ed intervention 1 goal intervention scheduled/document ed in this visit Discharge Disciplines: Skilled Services 04/11/2024 Active 1 goal linked to scheduled/document ed intervention 1 goal intervention scheduled/document ed in this visit PT Impaired muscle performance and/or ROM Disciplines: PT 04/11/2024 Active 1 goal linked to scheduled/document ed intervention 1 goal intervention scheduled/document ed in this visit PT Impaired mobility Disciplines: PT 04/11/2024 Active 1 goal linked to scheduled/document ed intervention 1 goal intervention scheduled/document ed in this visit PT Impaired gait Disciplines: PT 04/11/2024 Active 1 goal linked to scheduled/document ed intervention 1 goal intervention scheduled/document ed in this visit PT Orthopedic Condition Disciplines: PT 04/11/2024 Active 1 goal linked to scheduled/document ed intervention 2 goal interventions scheduled/document ed in this visit PT Learning Assessment Disciplines: PT 04/11/2024 Active 1 goal linked to scheduled/document ed intervention 1 goal intervention scheduled/document ed in this visit Goals Goal Associated Problem Outcome Goal Met? Visit Notes Patient/caregiver will demonstrate ability to obtain, store, identify and administer ordered medications, keep accurate medication list in home, and adhere to medication schedule Description: Patient/caregiver will demonstrate ability to obtain, store, identify and administer ordered medications, keep accurate medication list in home, and adhere to medication schedule by 05/01/24. Medication Education No Patient/caregiver will be able to identify and report symptoms of sepsis Description: Patient/caregiver will be able to identify signs/symptoms of sepsis infection and will verbalize actions to take if suspected by 05/01/24. Sepsis No Patient to maintain parameters within physician-specified ranges throughout certification period Physician Specific Parameters No Manage Risk for falls Description: Patient/caregiver will verbalize knowledge of individualized fall prevention strategies by 05/01/24. Risk for Falls No Manage Pain Description: Patient/caregiver will verbalize knowledge and understanding of appropriate techniques to control pain, including non-pharmacological techniques. Patient will verbalize or demonstrate an acceptable level of pain as evidenced by a pain score of 0-2/10 and improvement in ability to perform activities of daily living to be achieved by 05/01/24. Pain No Manage discharge planning Description: Patient/caregiver will verbalize understanding of ongoing discharge plan provided related to disease management, arrangements for outpatient and/or community services, obtaining medications, supplies, and DME, as needed throughout certification period. Discharge No Improved Muscle Performance and/or ROM Description: LTG: Patient will demonstrate improved muscle performance to meet functional goals as evidenced by ability to tolerate 8 mins of standing activity, to be achieved by 05/01/24. LTG: Patient and/or caregiver will verbalize/demonstrate independence with home exercise program, to improve functional mobility, to be achieved by 05/01/24. PT Impaired muscle performance and/or ROM No Improved Bed Mobility Description: STG: Patient will demonstrate improved ability to position self independently to be achieved by 04/24/24. PT Impaired mobility No Improved Gait Description: LTG: Patient will demonstrate improved gait ability as evidenced by ambulation 200 feet with front wheeled walker independently with AD, to return to safe household ambulation, in order to reach car in the driveway, to be achieved by 05/01/24. PT Impaired gait No Manage Orthopedic Condition Description: Improve patient and/or caregiver understanding of post surgical and/or non-surgical orthopedic intervention management as evidenced by patient and/or caregiver able to verbalize, demonstrate, and teach back instruction, to be achieved by 05/01/24. PT Orthopedic Condition No Demonstrate understanding of education Description: Patient and/or caregiver will understand educational instruction to be achieved by 05/01/24. PT Learning Assessment No Interventions Intervention Associated Problem/Goal Status Variance Visit Notes Medication Education Description: Evaluate/instruct patient/caregiver on obtaining, storing, identifying and administering ordered medications as well as keeping accurate medication list in the home and adhereing to medication schedule Problem:Medication Education Goal:Patient/caregive r will demonstrate ability to obtain, store, identify and administer ordered medications, keep accurate medication list in home, and adhere to medication schedule Completed Patient and Caregiver instructed on importance of keeping accurate medication list in home. Risk of Sepsis Description: Patient is at risk for sepsis. Monitor closely for s/s of sepsis. Problem:Sepsis Goal:Patient/caregive r will be able to identify and report symptoms of sepsis Completed Blood Sugar Description: Notify Dr. Maddox if blood sugar 200 for more than 1 consecutive day. Problem:Physician Specific Parameters Goal:Patient to maintain parameters within physician-specified ranges throughout certification period Completed SPO2 Description: Notify Dr. Maddox if pulse ox is <92% at rest. Problem:Physician Specific Parameters Goal:Patient to maintain parameters within physician-specified ranges throughout certification period Completed Instruct on individual fall risk factors and strategies to prevent falls and injuries caused by falls. Problem:Risk for Falls Goal:Manage Risk for falls Completed PT: Patient and Caregiver instructed on Eliminating Environmental Hazards: Keep pets out of pathways Instruct on pain and instruct on strategies to control pain Problem:Pain Goal:Manage Pain Completed patient and caregiver instructed on techniques to control pain including Pharmacological measures and Non-Pharmacological measures; positioning/elevation and use of thermal modalities, apply ice to affected area for the following prescribed frequency: prn. Instruct on ongoing discharge plan Problem:Discharge Goal:Manage discharge planning Completed Ongoing Discharge plan: Discharge plan discussed with patient and caregiver including frequency and duration for home PT and plan for transition to: live independently at home without ongoing services. Physical Therapy Therapeutic Exercises Problem:PT Impaired muscle performance and/or ROM Goal:Improved Muscle Performance and/or ROM Completed patient and caregiver instructed on strengthening exercises including ap,qs,gs,hipadd, saq standing RLE hams curl, slr and hip abd [id number] with verbal, visual and written cues for form and increased reps. patient instructed to perform home exercise program twice a day which included above ex. Physical Therapy Bed Mobility Training Problem:PT Impaired mobility Goal:Improved Bed Mobility Completed Bed mobility training and instruction to patient and caregiver, including supine<>sit with supervision and verbal cues for correct technique. Physical Therapy Gait Training Problem:PT Impaired gait Goal:Improved Gait Completed Gait training and instruction to patient and caregiver on safe ambulation with front wheeled walker for 2x'50 feet with supervision, with verbal cues for corrections of gait deviations including PWB. Instruct on orthopedic precautions and weight bearing restrictions Description: Orthopedic precautions including right anterior hip: no hip extension past neutral and avoid hip external rotation with extension or in extreme positions. Weight bearing restrictions include: 50% PWB of involved extremity. Problem:PT Orthopedic Condition Goal:Manage Orthopedic Condition Completed patient and caregiver instructed on orthopedic precautions and weight bearing restrictions. Instruct on management of edema Problem:PT Orthopedic Condition Goal:Manage Orthopedic Condition Completed Instruct patient and caregiver on management of edema including elevation of RLE above the level of the heart and ice. Instruct and educate on knowledge deficits Problem:PT Learning Assessment Goal:Demonstrate understanding of education Completed patient and caregiver verbalize and/or demonstrate understanding of physical therapy education including weight bearing precautions, surgical precautions, pain management and home exercise program. Education methods include: verbal cues and visual cues. Further education required to improve knowledge and compliance with home exercise program. documented in this encounter [facility] [place] Plan of care note* Visit Details Visit Type -SPONGE MAKER ROUTINE Discipline -Physical Therapy Problems Problem Description Start Date Status Goals Interve ntions Medication Education Disciplines: Skilled Services 04/11/2024 Active 1 goal linked to scheduled/document ed intervention 1 goal intervention scheduled/document ed in this visit Sepsis Disciplines: Skilled Services 04/11/2024 Active 1 goal linked to scheduled/document ed intervention 1 goal intervention scheduled/document ed in this visit Physician Specific Parameters Disciplines: Skilled Services 04/11/2024 Active 1 goal linked to scheduled/document ed intervention 2 goal interventions scheduled/document ed in this visit Risk for Falls Disciplines: Skilled Services 04/11/2024 Active 1 goal linked to scheduled/document ed intervention 1 goal intervention scheduled/document ed in this visit Pain Disciplines: Skilled Services 04/11/2024 Active 1 goal linked to scheduled/document ed intervention 1 goal intervention scheduled/document ed in this visit Diabetic Foot Care Disciplines: Skilled Services 04/11/2024 Active 1 goal linked to scheduled/document ed intervention 1 goal intervention scheduled/document ed in this visit Discharge Disciplines: Skilled Services 04/11/2024 Active 1 goal linked to scheduled/document ed intervention 2 goal interventions scheduled/document ed in this visit PT Impaired muscle performance and/or ROM Disciplines: PT 04/11/2024 Active 1 goal linked to scheduled/document ed intervention 1 goal intervention scheduled/document ed in this visit PT Impaired gait Disciplines: PT 04/11/2024 Active 1 goal linked to scheduled/document ed intervention 1 goal intervention scheduled/document ed in this visit PT Impaired balance Disciplines: PT 04/11/2024 Active 1 goal linked to scheduled/document ed intervention 1 goal intervention scheduled/document ed in this visit PT Orthopedic Condition Disciplines: PT 04/11/2024 Active 1 goal linked to scheduled/document ed intervention 3 goal interventions scheduled/document ed in this visit PT Learning Assessment Disciplines: PT 04/11/2024 Active 1 goal linked to scheduled/document ed intervention 1 goal intervention scheduled/document ed in this visit Goals Goal Associated Problem Outcome Goal Met? Visit Notes Patient/caregiver will demonstrate ability to obtain, store, identify and administer ordered medications, keep accurate medication list in home, and adhere to medication schedule Description: Patient/caregiver will demonstrate ability to obtain, store, identify and administer ordered medications, keep accurate medication list in home, and adhere to medication schedule by 05/01/24. Medication Education No Patient/caregiver will be able to identify and report symptoms of sepsis Description: Patient/caregiver will be able to identify signs/symptoms of sepsis infection and will verbalize actions to take if suspected by 05/01/24. Sepsis No Patient to maintain parameters within physician-specified ranges throughout certification period Physician Specific Parameters No Manage Risk for falls Description: Patient/caregiver will verbalize knowledge of individualized fall prevention strategies by 05/01/24. Risk for Falls No Manage Pain Description: Patient/caregiver will verbalize knowledge and understanding of appropriate techniques to control pain, including non-pharmacological techniques. Patient will verbalize or demonstrate an acceptable level of pain as evidenced by a pain score of 0-2/10 and improvement in ability to perform activities of daily living to be achieved by 05/01/24. Pain No Manage diabetic foot care Description: Patient/caregiver will demonstrate basic understanding of and compliance with diabetic self-care management as evidenced by verbalizing purpose of daily foot care and assessment by 05/01/24. Diabetic Foot Care No Manage discharge planning Description: Patient/caregiver will verbalize understanding of ongoing discharge plan provided related to disease management, arrangements for outpatient and/or community services, obtaining medications, supplies, and DME, as needed throughout certification period. Discharge No Improved Muscle Performance and/or ROM Description: LTG: Patient will demonstrate improved muscle performance to meet functional goals as evidenced by ability to tolerate 8 mins of standing activity, to be achieved by 05/01/24. LTG: Patient and/or caregiver will verbalize/demonstrate independence with home exercise program, to improve functional mobility, to be achieved by 05/01/24. PT Impaired muscle performance and/or ROM No Improved Gait Description: LTG: Patient will demonstrate improved gait ability as evidenced by ambulation 200 feet with front wheeled walker independently with AD, to return to safe household ambulation, in order to reach car in the driveway, to be achieved by 05/01/24. PT Impaired gait No Improved Balance Description: LTG: Patient will demonstrate improved standing balance to meet functional goals as evidenced by no falls during home P.T. to be achieved by 05/01/24. PT Impaired balance No Manage Orthopedic Condition Description: Improve patient and/or caregiver understanding of post surgical and/or non-surgical orthopedic intervention management as evidenced by patient and/or caregiver able to verbalize, demonstrate, and teach back instruction, to be achieved by 05/01/24. PT Orthopedic Condition No Demonstrate understanding of education Description: Patient and/or caregiver will understand educational instruction to be achieved by 05/01/24. PT Learning Assessment No Interventions Intervention Associated Problem/Goal Status Variance Visit Notes Medication Education Description: Evaluate/instruct patient/caregiver on obtaining, storing, identifying and administering ordered medications as well as keeping accurate medication list in the home and adhereing to medication schedule Problem:Medication Education Goal:Patient/caregive r will demonstrate ability to obtain, store, identify and administer ordered medications, keep accurate medication list in home, and adhere to medication schedule Completed Patient instructed on importance of keeping accurate medication list in home. Risk of Sepsis Description: Patient is at risk for sepsis. Monitor closely for s/s of sepsis. Problem:Sepsis Goal:Patient/caregive r will be able to identify and report symptoms of sepsis Completed Blood Sugar Description: Notify Dr. Maddox if blood sugar 200 for more than 1 consecutive day. Problem:Physician Specific Parameters Goal:Patient to maintain parameters within physician-specified ranges throughout certification period Completed SPO2 Description: Notify Dr. Maddox if pulse ox is <92% at rest. Problem:Physician Specific Parameters Goal:Patient to maintain parameters within physician-specified ranges throughout certification period Completed Instruct on individual fall risk factors and strategies to prevent falls and injuries caused by falls. Problem:Risk for Falls Goal:Manage Risk for falls Completed PT: Patient and Caregiver instructed on Managing Impaired Functional Mobility: Use assistive device(s): single point cane Instruct on pain and instruct on strategies to control pain Problem:Pain Goal:Manage Pain Completed patient instructed on techniques to control pain including Pharmacological measures and Non-Pharmacological measures; positioning/elevation and use of thermal modalities, apply ice to affected area for the following prescribed frequency: prn. Monitor lower extremities for skin lesions and educate on proper foot care Problem:Diabetic Foot Care Goal:Manage diabetic foot care Completed patient instructed on diabetic foot care including wearing proper footwear/avoiding going barefoot. Deliver [facility] Problem:Discharge Goal:Manage discharge planning Completed Delivered [facility] on 04/23/24 for discharge date of 04/28/24. Instruct on ongoing discharge plan Problem:Discharge Goal:Manage discharge planning Completed Ongoing Discharge plan: Discharge plan discussed with patient and caregiver including frequency and duration for home PT and plan for transition to: live independently at home without ongoing services. Physical Therapy Therapeutic Exercises Problem:PT Impaired muscle performance and/or ROM Goal:Improved Muscle Performance and/or ROM Completed patient and caregiver instructed on strengthening exercises including tala standing heel raises, hip flexion and abd, hams curls and 1.4 squats x's 10 each with verbal, visual and written cues for progressions. patient and caregiver instructed to perform home exercise program twice a day which included above ex. Physical Therapy Gait Training Problem:PT Impaired gait Goal:Improved Gait Completed Gait training and instruction to patient and caregiver on safe ambulation with single point cane for 50 and 2x'20 feet with supervision, with verbal and visual cues for corrections of gait deviations including correct use and sequencing. Physical Therapy Balance Training Problem:PT Impaired balance Goal:Improved Balance Completed Developed, implemented, and instructed patient and caregiver on standing balance exercises including tala standing exercises and cane training. Instruct on orthopedic precautions and weight bearing restrictions Description: Orthopedic precautions including right anterior hip: no hip extension past neutral and avoid hip external rotation with extension or in extreme positions. Weight bearing restrictions include: 50% PWB of involved extremity. 04/22/24- progress to [facility]AT Problem:PT Orthopedic Condition Goal:Manage Orthopedic Condition Completed patient and caregiver instructed on orthopedic precautions. Instruct on management of edema Problem:PT Orthopedic Condition Goal:Manage Orthopedic Condition Completed Instruct patient on management of edema including elevation of rle above the level of the heart and ice. Instruct on self-management of post surgical and/or non-surgical orthopedic intervention Problem:PT Orthopedic Condition Goal:Manage Orthopedic Condition Completed patient and caregiver instructed on signs and symptoms of infection, signs and symptoms of DVT/PE, instructed on when to call provider and instructed on when to call 911. Instruct and educate on knowledge deficits Problem:PT Learning Assessment Goal:Demonstrate understanding of education Completed patient and caregiver verbalize and/or demonstrate understanding of physical therapy education including home exercise program. Education methods include: verbal cues, written instructions and visual cues. Further education required to improve knowledge and compliance with home exercise program. [facility] Visit Details Visit Type -PT AGENCY DC W V ISIT Discipline -Physical Therapy Problems Problem Description Start Date Status Goals Interve ntions Medication Education Disciplines: Skilled Services 04/11/2024 Resolved on 04/28/2024 1 goal linked to scheduled/document ed intervention Sepsis Disciplines: Skilled Services 04/11/2024 Resolved on 04/28/2024 1 goal linked to scheduled/document ed intervention 1 goal intervention scheduled/document ed in this visit Physician Specific Parameters Disciplines: Skilled Services 04/11/2024 Resolved on 04/28/2024 1 goal linked to scheduled/document ed intervention 2 goal interventions scheduled/document ed in this visit Risk for Falls Disciplines: Skilled Services 04/11/2024 Resolved on 04/28/2024 1 goal linked to scheduled/document ed intervention 1 goal intervention scheduled/document ed in this visit Pain Disciplines: Skilled Services 04/11/2024 Resolved on 04/28/2024 1 goal linked to scheduled/document ed intervention Diabetic Foot Care Disciplines: Skilled Services 04/11/2024 Resolved on 04/28/2024 1 goal linked to scheduled/document ed intervention High Risk Medications Disciplines: Skilled Services 04/11/2024 Resolved on 04/28/2024 1 goal linked to scheduled/document ed intervention Discharge Disciplines: Skilled Services 04/11/2024 Resolved on 04/28/2024 1 goal linked to scheduled/document ed intervention PT Impaired muscle performance and/or ROM Disciplines: PT 04/11/2024 Resolved on 04/28/2024 1 goal linked to scheduled/document ed intervention 1 goal intervention scheduled/document ed in this visit PT Impaired mobility Disciplines: PT 04/11/2024 Resolved on 04/28/2024 2 goals linked to scheduled/document ed interventions 2 goal interventions scheduled/document ed in this visit PT Impaired gait Disciplines: PT 04/11/2024 Resolved on 04/28/2024 2 goals linked to scheduled/document ed interventions 2 goal interventions scheduled/document ed in this visit PT Impaired balance Disciplines: PT 04/11/2024 Resolved on 04/28/2024 1 goal linked to scheduled/document ed intervention 1 goal intervention scheduled/document ed in this visit PT Orthopedic Condition Disciplines: PT 04/11/2024 Resolved on 04/28/2024 1 goal linked to scheduled/document ed intervention 3 goal interventions scheduled/document ed in this visit PT Learning Assessment Disciplines: PT 04/11/2024 Resolved on 04/28/2024 1 goal linked to scheduled/document ed intervention 1 goal intervention scheduled/document ed in this visit Goals Goal Associated Problem Outcome Goal Met? Visit Notes Patient/caregiver will demonstrate ability to obtain, store, identify and administer ordered medications, keep accurate medication list in home, and adhere to medication schedule Description: Patient/caregiver will demonstrate ability to obtain, store, identify and administer ordered medications, keep accurate medication list in home, and adhere to medication schedule by 05/01/24. Medication Education Completed Yes Patient/caregiver will be able to identify and report symptoms of sepsis Description: Patient/caregiver will be able to identify signs/symptoms of sepsis infection and will verbalize actions to take if suspected by 05/01/24. Sepsis Completed Yes Patient to maintain parameters within physician-specified ranges throughout certification period Physician Specific Parameters Completed Yes Manage Risk for falls Description: Patient/caregiver will verbalize knowledge of individualized fall prevention strategies by 05/01/24. Risk for Falls Completed Yes Manage Pain Description: Patient/caregiver will verbalize knowledge and understanding of appropriate techniques to control pain, including non-pharmacological techniques. Patient will verbalize or demonstrate an acceptable level of pain as evidenced by a pain score of 0-2/10 and improvement in ability to perform activities of daily living to be achieved by 05/01/24. Pain Completed Yes Manage diabetic foot care Description: Patient/caregiver will demonstrate basic understanding of and compliance with diabetic self-care management as evidenced by verbalizing purpose of daily foot care and assessment by 05/01/24. Diabetic Foot Care Completed Yes Patient/caregiver will teach back high risk medication side effect and precaution education Description: STG Patient/caregiver will verbalize understanding of high risk medication side effects and precautions to be achieved by 04/24/24. LTG Patient/caregiver will continue to verbalize understanding of high risk medication side effects and precautions throughout certification period. High Risk Medications Completed Yes Manage discharge planning Description: Patient/caregiver will verbalize understanding of ongoing discharge plan provided related to disease management, arrangements for outpatient and/or community services, obtaining medications, supplies, and DME, as needed throughout certification period. Discharge Completed Yes Improved Muscle Performance and/or ROM Description: LTG: Patient will demonstrate improved muscle performance to meet functional goals as evidenced by ability to tolerate 8 mins of standing activity, to be achieved by 05/01/24. LTG: Patient and/or caregiver will verbalize/demonstrate independence with home exercise program, to improve functional mobility, to be achieved by 05/01/24. PT Impaired muscle performance and/or ROM Completed Yes Improved Transfers Description: LTG: Patient will demonstrate safe transfers to/from bed, chair and toilet independently with AD, to be achieved by 05/01/24. PT Impaired mobility Completed Yes Improved Bed Mobility Description: STG: Patient will demonstrate improved ability to position self independently to be achieved by 04/24/24. PT Impaired mobility Completed Yes Improved Stair Climbing Description: LTG: Patient will demonstrate improved stair negotiation as evidenced by ascend/descend 3 steps with railing independently, to safely exit home, to be achieved by 05/01/24. PT Impaired gait Completed Yes Improved Gait Description: LTG: Patient will demonstrate improved gait ability as evidenced by ambulation 200 feet with front wheeled walker independently with AD, to return to safe household ambulation, in order to reach car in the driveway, to be achieved by 05/01/24. PT Impaired gait Completed Yes Improved Balance Description: LTG: Patient will demonstrate improved standing balance to meet functional goals as evidenced by no falls during home P.T. to be achieved by 05/01/24. PT Impaired balance Completed Yes Manage Orthopedic Condition Description: Improve patient and/or caregiver understanding of post surgical and/or non-surgical orthopedic intervention management as evidenced by patient and/or caregiver able to verbalize, demonstrate, and teach back instruction, to be achieved by 05/01/24. PT Orthopedic Condition Completed Yes Demonstrate understanding of education Description: Patient and/or caregiver will understand educational instruction to be achieved by 05/01/24. PT Learning Assessment Completed Yes Interventions Intervention Associated Problem/Goal Status Variance Visit Notes Risk of Sepsis Description: Patient is at risk for sepsis. Monitor closely for s/s of sepsis. Problem:Sepsis Goal:Patient/caregiver will be able to identify and report symptoms of sepsis Completed Blood Sugar Description: Notify Dr. Maddox if blood sugar 200 for more than 1 consecutive day. Problem:Physician Specific Parameters Goal:Patient to maintain parameters within physician-specified ranges throughout certification period Completed SPO2 Description: Notify Dr. Maddox if pulse ox is <92% at rest. Problem:Physician Specific Parameters Goal:Patient to maintain parameters within physician-specified ranges throughout certification period Completed Instruct on individual fall risk factors and strategies to prevent falls and injuries caused by falls. Problem:Risk for Falls Goal:Manage Risk for falls Completed PT: Patient instructed on Eliminating Environmental Hazards: Keep pathways clear, Keep pets out of pathways, Remove unsafe rugs, Move furniture from pathways, Keep rooms and walkways well lit, Install hand rails/grab bars and Wear supportive shoes or non-skid socks Managing Impaired Functional Mobility: Use assistive device(s): front wheeled walker and single point cane Managing Pain Physical Therapy Therapeutic Exercises Problem:PT Impaired muscle performance and/or ROM Goal:Improved Muscle Performance and/or ROM Completed patient and caregiver instructed on strengthening exercises including tala standing heel raises, hip flexion and abd, hams curls and 1.4 squats x's 10 each with verbal, visual and written cues for progressions. patient and caregiver instructed to perform home exercise program twice a day which included above ex. Physical Therapy Transfer Training Problem:PT Impaired mobility Goal:Improved Transfers Completed YURI transfers with safe/proper technique Physical Therapy Bed Mobility Training Problem:PT Impaired mobility Goal:Improved Bed Mobility Completed can get in/out of bed with supervision but prefers to sleep in the recliner Physical Therapy Stair Training Problem:PT Impaired gait Goal:Improved Stair Climbing Completed up and down 2 step wtih rail + cane step together sequencing Physical Therapy Gait Training Problem:PT Impaired gait Goal:Improved Gait Completed Indep amb with WW or st cane with steady recip pattern x 100 . pt still more comfortable with WW vs cane Physical Therapy Balance Training Problem:PT Impaired balance Goal:Improved Balance Completed pt demonstrates improved dynamic standing balance as evidenced by a tug of 18 Instruct on orthopedic precautions and weight bearing restrictions Description: Orthopedic precautions including right anterior hip: no hip extension past neutral and avoid hip external rotation with extension or in extreme positions. Weight bearing restrictions include: 50% PWB of involved extremity. 04/22/24- progress to WBAT Problem:PT Orthopedic Condition Goal:Manage Orthopedic Condition Completed patient instructed on orthopedic precautions and weight bearing restrictions. Instruct on management of edema Problem:PT Orthopedic Condition Goal:Manage Orthopedic Condition Completed Instruct patient on management of edema including elevation of RLE above the level of the heart and ice. Instruct on self-management of post surgical and/or non-surgical orthopedic intervention Problem:PT Orthopedic Condition Goal:Manage Orthopedic Condition Completed patient instructed on managagement of orthopedic condition, measures to avoid skin breakdown, staying well hydrated, eating foods with high protein, signs and symptoms of infection, signs and symptoms of DVT/PE, follow provider guidance for showering and instructed on when to call provider. Instruct and educate on knowledge deficits Problem:PT Learning Assessment Goal:Demonstrate understanding of education Completed patient verbalize and/or demonstrate understanding of physical therapy education including diabetic care management, orthopedic condition management, weight bearing precautions, surgical precautions, pain management, fall prevention strategies, home safety, functional activity and home exercise program. Education methods include: verbal cues and written instructions. documented in this encounter [facility] data available for this section [facility] Reason for referral (narrative)* Diagnostic Procedure Only (Routine) - New Request Specialty Diagnoses / Procedures Referred By Contac t Referred To Contact XR IMAGING Diagnoses Bilateral hip pain Procedures XR LEG FRONTAL HIP TO ANKLE MECHANICAL AXIS BONE LENGTH STUDIES Breonna Polk PA-C [address] [place] [address] [place] [address] Referral ID Status Reason Start Date Expiration Date Visits Requested Visits Authorized [id number] New Request Auto-Generat ed Referral 4 12/30/2024 1 1 * Diagnostic Procedure Only (Routine) - New Request Specialty Diagnoses / Procedures Referred By Contac t Referred To Contact XR IMAGING Diagnoses Bilateral hip pain Procedures XR HIP BILATERAL 5V PEL/AP/LAT EACH HIP RADEX HIPS BILATERAL WITH PELVIS MINIMUM 5 VIEWS Breonna Polk PA-C [address] [place] [address] [place] [address] Referral ID Status Reason Start Date Expiration Date Visits Requested Visits Authorized [id number] New Request Auto-Generat ed Referral 4 12/30/2024 1 1 [facility] for visit Narrative* Diagnostic Procedure Only (Routine) - Closed Specialty Diagnoses / Procedures Referred By Contac t Referred To Contact XR IMAGING Diagnoses Bilateral hip pain Procedures XR HIP BILATERAL 5V PEL/AP/LAT EACH HIP RADEX HIPS BILATERAL WITH PELVIS MINIMUM 5 VIEWS Breonna Polk PA-C [address] [address] [place] [address] Referral ID Status Reason Start Date Expiration Date V isits Requested Visits Authorized [id number] Closed Auto-Generate d Referral 12/02/2023 12/30/2024 1 1 [facility]* Diagnostic Procedure Only (Routine) - Closed Specialty Diagnoses / Procedures Referred By Levi t Referred To Contact XR IMAGING Diagnoses Status post right hip replacement Procedures XR HIP GENERAL 3V PELV/AP/LAT RIGHT RADEX HIP UNILATERAL WITH PELVIS 2-3 VIEWS Nakul Maddox MD [address] [place] [address] Phone: tel: fax: [place] [address] Referral ID Status Reason Start Date Expiration Date V isits Requested Visits Authorized [id number] Closed Auto-Generate d Referral 04/19/2024 05/19/2025 1 1 [facility] Chief Complaint and Reason for Visit Chief Complaint NEED LAB ORDER Chief Complaint Bicipital tendinitis , right shoulder Chief Complaint LEFT SHOULDER Reason for Visit Internal impingement of left shoulder Left rotator cuff tear Left shoulder pain Chief Complaint left shoulder Left shoulder Arthroscopy, subacrom Left shoulder Arthroscopy, subacrom left shoulder left shoulder LEFT SHOULDER LEFT SHOULDER LEFT ROTATOR CUFF TEAR. RX HERE Reason for Visit Left rotator cuff te ar Left rotator cuff tear Left shoulder pain Left rotator cuff tear Internal impingement of left shoulder Left rotator cuff tear Left shoulder pain Internal impingement of left shoulder Left rotator cuff tear Internal impingement of left shoulder Left rotator cuff tear Advance Directives No Advanced Directives Records Found Advance Directive Response Recorded Date/ Time Living Will Yes December 30 1:30pm Power of Care Process Manager Yes December 30, 2020 1:30pm Advance Directive Response Recorded Date/ Time Living Will Yes December 30 12:30pm Power of Care Process Manager Yes December 30, 2020 12:30pm Advance Directive Response Recorded Date/ Time Name of Medical Power of Care Process Manager ANT OCAMPO October 30, 2022 1:01pm Living Will Yes October 30, 2022 1:01pm Power of Care Process Manager Yes October 1:01pm Documents on File Type Date Recorded Patient Industrial Waste Inspector Expl anation Advance Directive(s) 11/20/2023 9:10 AM Documents on File Type Date Recorded Patient Industrial Waste Inspector Expl anation Advance Directive(s) 11/20/2023 9:10 AM Date Activated Date Inactivated Comments 04/11/2024 8:30 PM Date Activated Date Inactivated Comments 04/11/2024 8:30 PM Reason for Referral Specialty Diagnoses / Procedures Referred By Contac t Referred To Contact Diagnoses Primary osteoarthritis of both hips Procedures REFER TO [facility] - PREOPERATIVE OPTIMIZATION OFFICE/OUTPATIENT [facility] 60 MINUTES Nakul Maddox MD [address] [place] [address] Referral ID Status Reason Start Date Expiration Date Visits Requested Visits Authorized [id number] Authorized PCP Requested Referral 12/28/2024 1 1 Specialty Diagnoses / Procedures Referred By Contac t Referred To Contact Diagnoses Brain fog Memory loss Procedures NEUROPSYCHOLOGICAL TESTING CONSULT NEUROBEHAVIORAL STATUS XM PHYS/QHP 1ST HOUR NEUROPSYCHOLOGICAL TST EVAL PHYS/QHP 1ST HOUR NEUROPSYCHOLOGICAL TST EVAL PHYS/QHP EA ADDL HR PSYCL/NRPSYCL TST TECH 2+ TST 1ST 30 MIN PSYCL/NRPSYCL TST TECH 2+ TST EA ADDL 30 MIN Geovanna Hoffman PA-C [address] [place] [address] Referral ID Status Reason Start Date Expiration Date Visits Requested Visits Authorized [id number] Ref Not Required PCP Requested Referral 12/24/2023 12/23/2024 1 3 Specialty Diagnoses / Procedures Referred By Contray t Referred To Contact MR IMAGING Diagnoses Diplopia Headaches Brain fog Memory loss Procedures MRI 3D POST PROCESSING 3D RENDERING W/INTERP&POSTPROC DIFF WORK STATION Geovanna Hoffman PA-C [address] [place] [address] [place] [address] Referral ID Status Reason Start Date Expiration Date Visits Requested Visits Authorized [id number] New Request Auto-Generat ed Referral 12/24/2023 01/22/2025 1 1 Specialty Diagnoses / Procedures Referred By Contac t Referred To Contact MR IMAGING Diagnoses Brain fog Memory loss Procedures MRI BRAIN WO IVCON MRI BRAIN BRAIN STEM W/O CONTRAST MATERIAL Geovanna Hoffman PA-C [address] [place] [address] [place] [address] Referral ID Status Reason Start Date Expiration Date Visits Requested Visits Authorized [id number] Waiting for Online Response Auto-Generat ed Referral 12/24/2023 01/22/2025 1 1 Specialty Diagnoses / Procedures Referred By Contac t Referred To Contact Neurology Diagnoses Diplopia Headaches Procedures CONSULT TO NEUROLOGY OFFICE/OUTPATIENT [facility] 60 MINUTES Lon Garcia, INTEGRATION MANAGER.LEISURE TRAVEL AGENT [address] [place] [address] Referral ID Status Reason Start Date Expiration Date Visits Requested Visits Authorized [id number] Authorized PCP Requested Referral 11/30/2024 1 1 Specialty Diagnoses / Procedures Referred By Contac t Referred To Contact Ent - Otolaryngology Diagnoses Hoarseness Nasal drainage Procedures CONSULT TO ENT OFFICE/OUTPATIENT [facility] 60-74 MINUTES Rashid Grimes, INTEGRATION MANAGER.ELECTRIC LOCOMOTIVE CRANE OPERATOR [address] [place] [address] Referral ID Status Reason Start Date Expiration Date Visits Requested Visits Authorized [id number] Pending Review PCP Requested Referral 05/09/2022 05/09/2023 1 1 Specialty Diagnoses / Procedures Referred By Contac t Referred To Contact CT IMAGING Diagnoses Abnormal x-ray Prostate cancer (HCC) Pulmonary nodule/lesion, solitary Procedures CT CHEST WO IVCON DIAGNOSTIC COMPUTED TOMOGRAPHY THORAX W/O CNTRST Rashid Grimes, INTEGRATION MANAGER.ELECTRIC LOCOMOTIVE CRANE OPERATOR [address] [place] [address] Ct Imaging Referral ID Status Reason Start Date Expiration Date Visits Requested Visits Authorized [id number] Authorized Auto-Generat ed Referral 11/20/2021 12/20/2022 1 1 Summary Purpose Family History No Family History Records Found Additional Source Comments Source Comments (unrecognize d section and content) In the event this informatio n is protected by the Federal Confidentiality of Alcohol and Drug Abuse Patient Records regulations: The Federal rules restrict any use of the information to criminally investigate or prosecute any alcohol or drug abuse patient.[facility] the event this information is protected by the Federal Confidentiality of Alcohol and Drug Abuse Patient Records regulations: The Federal rules restrict any use of the information to criminally investigate or prosecute any alcohol or drug abuse patient.[facility]In the event this information is protected by the Federal Confidentiality of Alcohol and Drug Abuse Patient Records regulations: The Federal rules restrict any use of the information to criminally investigate or prosecute any alcohol or drug abuse patient.[facility]In the event this information is protected by the Federal Confidentiality of Alcohol and Drug Abuse Patient Records regulations: The Federal rules restrict any use of the information to criminally investigate or prosecute any alcohol or drug abuse patient.[facility] the event this information is protected by the Federal Confidentiality of Alcohol and Drug Abuse Patient Records regulations: The Federal rules restrict any use of the information to criminally investigate or prosecute any alcohol or drug abuse patient.[facility]In the event this information is protected by the Federal Confidentiality of Alcohol and Drug Abuse Patient Records regulations: The Federal rules restrict any use of the information to criminally investigate or prosecute any alcohol or drug abuse patient.[facility]In the event this information is protected by the Federal Confidentiality of Alcohol and Drug Abuse Patient Records regulations: The Federal rules restrict any use of the information to criminally investigate or prosecute any alcohol or drug abuse patient.[facility]In the event this information is protected by the Federal Confidentiality of Alcohol and Drug Abuse Patient Records regulations: The Federal rules restrict any use of the information to criminally investigate or prosecute any alcohol or drug abuse patient.[facility]In the event this information is protected by the Federal Confidentiality of Alcohol and Drug Abuse Patient Records regulations: The Federal rules restrict any use of the information to criminally investigate or prosecute any alcohol or drug abuse patient.[facility]In the event this information is protected by the Federal Confidentiality of Alcohol and Drug Abuse Patient Records regulations: The Federal rules restrict any use of the information to criminally investigate or prosecute any alcohol or drug abuse patient.[facility] HospitalIn the event this information is protected by the Federal Confidentiality of Alcohol and Drug Abuse Patient Records regulations: The Federal rules restrict any use of the information to criminally investigate or prosecute any alcohol or drug abuse patient.[facility]In the event this information is protected by the Federal Confidentiality of Alcohol and Drug Abuse Patient Records regulations: The Federal rules restrict any use of the information to criminally investigate or prosecute any alcohol or drug abuse patient.[facility] HospitalIn the event this information is protected by the Federal Confidentiality of Alcohol and Drug Abuse Patient Records regulations: The Federal rules restrict any use of the information to criminally investigate or prosecute any alcohol or drug abuse patient.[facility]In the event this information is protected by the Federal Confidentiality of Alcohol and Drug Abuse Patient Records regulations: The Federal rules restrict any use of the information to criminally investigate or prosecute any alcohol or drug abuse patient.[facility]In the event this information is protected by the Federal Confidentiality of Alcohol and Drug Abuse Patient Records regulations: The Federal rules restrict any use of the information to criminally investigate or prosecute any alcohol or drug abuse patient.[facility] HospitalIn the event this information is protected by the Federal Confidentiality of Alcohol and Drug Abuse Patient Records regulations: The Federal rules restrict any use of the information to criminally investigate or prosecute any alcohol or drug abuse patient.[facility]In the event this information is protected by the Federal Confidentiality of Alcohol and Drug Abuse Patient Records regulations: The Federal rules restrict any use of the information to criminally investigate or prosecute any alcohol or drug abuse patient.[facility] HospitalIn the event this information is protected by the Federal Confidentiality of Alcohol and Drug Abuse Patient Records regulations: The Federal rules restrict any use of the information to criminally investigate or prosecute any alcohol or drug abuse patient.[facility] HospitalIn the event this information is protected by the Federal Confidentiality of Alcohol and Drug Abuse Patient Records regulations: The Federal rules restrict any use of the information to criminally investigate or prosecute any alcohol or drug abuse patient.[facility]In the event this information is protected by the Federal Confidentiality of Alcohol and Drug Abuse Patient Records regulations: The Federal rules restrict any use of the information to criminally investigate or prosecute any alcohol or drug abuse patient.[facility] HospitalIn the event this information is protected by the Federal Confidentiality of Alcohol and Drug Abuse Patient Records regulations: The Federal rules restrict any use of the information to criminally investigate or prosecute any alcohol or drug abuse patient.[facility] HospitalIn the event this information is protected by the Federal Confidentiality of Alcohol and Drug Abuse Patient Records regulations: The Federal rules restrict any use of the information to criminally investigate or prosecute any alcohol or drug abuse patient.[facility] HospitalIn the event this information is protected by the Federal Confidentiality of Alcohol and Drug Abuse Patient Records regulations: The Federal rules restrict any use of the information to criminally investigate or prosecute any alcohol or drug abuse patient.[facility] HospitalIn the event this information is protected by the Federal Confidentiality of Alcohol and Drug Abuse Patient Records regulations: The Federal rules restrict any use of the information to criminally investigate or prosecute any alcohol or drug abuse patient.[facility] HospitalIn the event this information is protected by the Federal Confidentiality of Alcohol and Drug Abuse Patient Records regulations: The Federal rules restrict any use of the information to criminally investigate or prosecute any alcohol or drug abuse patient.[facility] HospitalIn the event this information is protected by the Federal Confidentiality of Alcohol and Drug Abuse Patient Records regulations: The Federal rules restrict any use of the information to criminally investigate or prosecute any alcohol or drug abuse patient.[facility] [place] [facility] HospitalIn the event this information is protected by the Federal Confidentiality of Alcohol and Drug Abuse Patient Records regulations: The Federal rules restrict any use of the information to criminally investigate or prosecute any alcohol or drug abuse patient.[facility] [place] [facility] HospitalIn the event this information is protected by the Federal Confidentiality of Alcohol and Drug Abuse Patient Records regulations: The Federal rules restrict any use of the information to criminally investigate or prosecute any alcohol or drug abuse patient.[facility] [place] [facility] HospitalIn the event this information is protected by the Federal Confidentiality of Alcohol and Drug Abuse Patient Records regulations: The Federal rules restrict any use of the information to criminally investigate or prosecute any alcohol or drug abuse patient.[facility] [place] [facility] HospitalIn the event this information is protected by the Federal Confidentiality of Alcohol and Drug Abuse Patient Records regulations: The Federal rules restrict any use of the information to criminally investigate or prosecute any alcohol or drug abuse patient.[facility] [place] [facility] HospitalIn the event this information is protected by the Federal Confidentiality of Alcohol and Drug Abuse Patient Records regulations: The Federal rules restrict any use of the information to criminally investigate or prosecute any alcohol or drug abuse patient.[facility] [place] [facility] HospitalIn the event this information is protected by the Federal Confidentiality of Alcohol and Drug Abuse Patient Records regulations: The Federal rules restrict any use of the information to criminally investigate or prosecute any alcohol or drug abuse patient.[facility] [place] [facility] HospitalIn the event this information is protected by the Federal Confidentiality of Alcohol and Drug Abuse Patient Records regulations: The Federal rules restrict any use of the information to criminally investigate or prosecute any alcohol or drug abuse patient.[facility] [place] [facility] HospitalIn the event this information is protected by the Federal Confidentiality of Alcohol and Drug Abuse Patient Records regulations: The Federal rules restrict any use of the information to criminally investigate or prosecute any alcohol or drug abuse patient.[facility] [place] [facility] HospitalIn the event this information is protected by the Federal Confidentiality of Alcohol and Drug Abuse Patient Records regulations: The Federal rules restrict any use of the information to criminally investigate or prosecute any alcohol or drug abuse patient.[facility] [place] [facility] HospitalIn the event this information is protected by the Federal Confidentiality of Alcohol and Drug Abuse Patient Records regulations: The Federal rules restrict any use of the information to criminally investigate or prosecute any alcohol or drug abuse patient.[facility] [place] [facility] HospitalIn the event this information is protected by the Federal Confidentiality of Alcohol and Drug Abuse Patient Records regulations: The Federal rules restrict any use of the information to criminally investigate or prosecute any alcohol or drug abuse patient.[facility] [place] [facility] HospitalIn the event this information is protected by the Federal Confidentiality of Alcohol and Drug Abuse Patient Records regulations: The Federal rules restrict any use of the information to criminally investigate or prosecute any alcohol or drug abuse patient.[facility] [place] [facility] HospitalIn the event this information is protected by the Federal Confidentiality of Alcohol and Drug Abuse Patient Records regulations: The Federal rules restrict any use of the information to criminally investigate or prosecute any alcohol or drug abuse patient.[facility] [place] [facility] HospitalIn the event this information is protected by the Federal Confidentiality of Alcohol and Drug Abuse Patient Records regulations: The Federal rules restrict any use of the information to criminally investigate or prosecute any alcohol or drug abuse patient.[facility] [place] [facility] HospitalIn the event this information is protected by the Federal Confidentiality of Alcohol and Drug Abuse Patient Records regulations: The Federal rules restrict any use of the information to criminally investigate or prosecute any alcohol or drug abuse patient.[facility] [place] [facility] HospitalIn the event this information is protected by the Federal Confidentiality of Alcohol and Drug Abuse Patient Records regulations: The Federal rules restrict any use of the information to criminally investigate or prosecute any alcohol or drug abuse patient.[facility] [place] [facility] HospitalIn the event this information is protected by the Federal Confidentiality of Alcohol and Drug Abuse Patient Records regulations: The Federal rules restrict any use of the information to criminally investigate or prosecute any alcohol or drug abuse patient.[facility] [place] [facility] HospitalIn the event this information is protected by the Federal Confidentiality of Alcohol and Drug Abuse Patient Records regulations: The Federal rules restrict any use of the information to criminally investigate or prosecute any alcohol or drug abuse patient.[facility] [place] [facility] HospitalIn the event this information is protected by the Federal Confidentiality of Alcohol and Drug Abuse Patient Records regulations: The Federal rules restrict any use of the information to criminally investigate or prosecute any alcohol or drug abuse patient.[facility] [place] [facility] HospitalIn the event this information is protected by the Federal Confidentiality of Alcohol and Drug Abuse Patient Records regulations: The Federal rules restrict any use of the information to criminally investigate or prosecute any alcohol or drug abuse patient.[facility] [place] [facility] HospitalIn the event this information is protected by the Federal Confidentiality of Alcohol and Drug Abuse Patient Records regulations: The Federal rules restrict any use of the information to criminally investigate or prosecute any alcohol or drug abuse patient.[facility] [place] [facility] HospitalIn the event this information is protected by the Federal Confidentiality of Alcohol and Drug Abuse Patient Records regulations: The Federal rules restrict any use of the information to criminally investigate or prosecute any alcohol or drug abuse patient.[facility] [place] [facility] HospitalIn the event this information is protected by the Federal Confidentiality of Alcohol and Drug Abuse Patient Records regulations: The Federal rules restrict any use of the information to criminally investigate or prosecute any alcohol or drug abuse patient.[facility] [place] [facility] HospitalIn the event this information is protected by the Federal Confidentiality of Alcohol and Drug Abuse Patient Records regulations: The Federal rules restrict any use of the information to criminally investigate or prosecute any alcohol or drug abuse patient.[facility] HospitalIn the event this information is protected by the Federal Confidentiality of Alcohol and Drug Abuse Patient Records regulations: The Federal rules restrict any use of the information to criminally investigate or prosecute any alcohol or drug abuse patient.[facility] HospitalIn the event this information is protected by the Federal Confidentiality of Alcohol and Drug Abuse Patient Records regulations: The Federal rules restrict any use of the information to criminally investigate or prosecute any alcohol or drug abuse patient.[facility] HospitalIn the event this information is protected by the Federal Confidentiality of Alcohol and Drug Abuse Patient Records regulations: The Federal rules restrict any use of the information to criminally investigate or prosecute any alcohol or drug abuse patient.[facility] [place] [facility] HospitalIn the event this information is protected by the Federal Confidentiality of Alcohol and Drug Abuse Patient Records regulations: The Federal rules restrict any use of the information to criminally investigate or prosecute any alcohol or drug abuse patient.[facility] [place] [facility] HospitalIn the event this information is protected by the Federal Confidentiality of Alcohol and Drug Abuse Patient Records regulations: The Federal rules restrict any use of the information to criminally investigate or prosecute any alcohol or drug abuse patient.[facility] HospitalIn the event this information is protected by the Federal Confidentiality of Alcohol and Drug Abuse Patient Records regulations: The Federal rules restrict any use of the information to criminally investigate or prosecute any alcohol or drug abuse patient.[facility] HospitalIn the event this information is protected by the Federal Confidentiality of Alcohol and Drug Abuse Patient Records regulations: The Federal rules restrict any use of the information to criminally investigate or prosecute any alcohol or drug abuse patient.[facility] HospitalIn the event this information is protected by the Federal Confidentiality of Alcohol and Drug Abuse Patient Records regulations: The Federal rules restrict any use of the information to criminally investigate or prosecute any alcohol or drug abuse patient.[facility] HospitalIn the event this information is protected by the Federal Confidentiality of Alcohol and Drug Abuse Patient Records regulations: The Federal rules restrict any use of the information to criminally investigate or prosecute any alcohol or drug abuse patient.[facility] HospitalIn the event this information is protected by the Federal Confidentiality of Alcohol and Drug Abuse Patient Records regulations: The Federal rules restrict any use of the information to criminally investigate or prosecute any alcohol or drug abuse patient.[facility] HospitalIn the event this information is protected by the Federal Confidentiality of Alcohol and Drug Abuse Patient Records regulations: The Federal rules restrict any use of the information to criminally investigate or prosecute any alcohol or drug abuse patient.[facility] HospitalIn the event this information is protected by the Federal Confidentiality of Alcohol and Drug Abuse Patient Records regulations: The Federal rules restrict any use of the information to criminally investigate or prosecute any alcohol or drug abuse patient.[facility] HospitalIn the event this information is protected by the Federal Confidentiality of Alcohol and Drug Abuse Patient Records regulations: The Federal rules restrict any use of the information to criminally investigate or prosecute any alcohol or drug abuse patient.[facility] HospitalIn the event this information is protected by the Federal Confidentiality of Alcohol and Drug Abuse Patient Records regulations: The Federal rules restrict any use of the information to criminally investigate or prosecute any alcohol or drug abuse patient.[facility] HospitalIn the event this information is protected by the Federal Confidentiality of Alcohol and Drug Abuse Patient Records regulations: The Federal rules restrict any use of the information to criminally investigate or prosecute any alcohol or drug abuse patient.[facility] HospitalIn the event this information is protected by the Federal Confidentiality of Alcohol and Drug Abuse Patient Records regulations: The Federal rules restrict any use of the information to criminally investigate or prosecute any alcohol or drug abuse patient.[facility] HospitalIn the event this information is protected by the Federal Confidentiality of Alcohol and Drug Abuse Patient Records regulations: The Federal rules restrict any use of the information to criminally investigate or prosecute any alcohol or drug abuse patient.[facility] HospitalIn the event this information is protected by the Federal Confidentiality of Alcohol and Drug Abuse Patient Records regulations: The Federal rules restrict any use of the information to criminally investigate or prosecute any alcohol or drug abuse patient.[facility] HospitalIn the event this information is protected by the Federal Confidentiality of Alcohol and Drug Abuse Patient Records regulations: The Federal rules restrict any use of the information to criminally investigate or prosecute any alcohol or drug abuse patient.[facility] HospitalIn the event this information is protected by the Federal Confidentiality of Alcohol and Drug Abuse Patient Records regulations: The Federal rules restrict any use of the information to criminally investigate or prosecute any alcohol or drug abuse patient.[facility] HospitalIn the event this information is protected by the Federal Confidentiality of Alcohol and Drug Abuse Patient Records regulations: The Federal rules restrict any use of the information to criminally investigate or prosecute any alcohol or drug abuse patient.[facility] HospitalIn the event this information is protected by the Federal Confidentiality of Alcohol and Drug Abuse Patient Records regulations: The Federal rules restrict any use of the information to criminally investigate or prosecute any alcohol or drug abuse patient.[facility] HospitalIn the event this information is protected by the Federal Confidentiality of Alcohol and Drug Abuse Patient Records regulations: The Federal rules restrict any use of the information to criminally investigate or prosecute any alcohol or drug abuse patient.[facility] HospitalIn the event this information is protected by the Federal Confidentiality of Alcohol and Drug Abuse Patient Records regulations: The Federal rules restrict any use of the information to criminally investigate or prosecute any alcohol or drug abuse patient.[facility] HospitalIn the event this information is protected by the Federal Confidentiality of Alcohol and Drug Abuse Patient Records regulations: The Federal rules restrict any use of the information to criminally investigate or prosecute any alcohol or drug abuse patient.[facility] HospitalIn the event this information is protected by the Federal Confidentiality of Alcohol and Drug Abuse Patient Records regulations: The Federal rules restrict any use of the information to criminally investigate or prosecute any alcohol or drug abuse patient.[facility] HospitalIn the event this information is protected by the Federal Confidentiality of Alcohol and Drug Abuse Patient Records regulations: The Federal rules restrict any use of the information to criminally investigate or prosecute any alcohol or drug abuse patient.[facility] HospitalIn the event this information is protected by the Federal Confidentiality of Alcohol and Drug Abuse Patient Records regulations: The Federal rules restrict any use of the information to criminally investigate or prosecute any alcohol or drug abuse patient.[facility] HospitalIn the event this information is protected by the Federal Confidentiality of Alcohol and Drug Abuse Patient Records regulations: The Federal rules restrict any use of the information to criminally investigate or prosecute any alcohol or drug abuse patient.[facility] HospitalIn the event this information is protected by the Federal Confidentiality of Alcohol and Drug Abuse Patient Records regulations: The Federal rules restrict any use of the information to criminally investigate or prosecute any alcohol or drug abuse patient.[facility] Reason for Visit (unrecogniz ed section and content) Reason Onset Date Comments Refill Request 01/04/2021 Reason Onset Date Comments Refill Request 07/04/2021 Reason Comments Establish Care Reason Comments Mass on lung noted on rig ht shoulder x-ray and chest x-ray Reason Comments Radiology CT Specialty Diagnoses / Procedures Referred By Levi t Referred To Contact CT IMAGING Diagnoses Chest CT WO IVCON Procedures CT Keren Arce MD [address] [place] [address] Ct Imaging Referral ID Status Reason Start Date Expiration Date V isits Requested Visits Authorized [id number] Closed OON/Self Pay Override 11/20/2021 02/18/2022 1 1 Reason Comments Results Reason Comments Patient Question Reason Comments F/U 6 months Reason Comments Throat Problem Reason Comments Medication Question Appointment Patient Update Reason Comments Medication Follow-up Reason Comments F/U 6 months Patient is asking is able to switch to pantoprazole. Still having some break through symptoms and does use this and works better for her. Reason Onset Date Comments Refill Request 11/04/2022 Reason Comments Rash Reason Onset Date Comments Refill Request 03/26/2023 Reason Comments Sinus Problem Sinus pain and press ure, congestion x 1 week, recent tooth extraction, infected tooth Reason Comments Patient Update Reason Onset Date Comments Refill Request 04/17/2023 Reason Comments Refill Request for ketoconazole continued rash on buttocks problems sleeping Reason Comments requesting a referral Reason Comments OV notes Reason Onset Date Comments Refill Request 09/01/2023 Reason Comments F/U 6 months Chest Pain in center of chest d escribes it as palpitations Reason Comments requesting referral Reason Comments Appointment Confirmation Reason Comments Appointment Reason Comments New Patient Diplopia, headaches Specialty Diagnoses / Procedures Referred By Levi t Referred To Contact Neurology Diagnoses Diplopia Headaches Procedures CONSULT TO NEUROLOGY OFFICE/OUTPATIENT NEW HIGH MDM 60 MINUTES Lon Garcia APRN.LEISURE TRAVEL AGENT [address] [place] [address] Referral ID Status Reason Start Date Expiration Date V isits Requested Visits Authorized [id number] Closed PCP Requested Referral 12/03/2023 11/30/2024 1 1 Reason Comments Consult bilateral hip replac ement consult Reason Comments Patient Update labs Specialty Diagnoses / Procedures Referred By Levi t Referred To Contact MR IMAGING Diagnoses Brain fog Memory loss Procedures MRI BRAIN WO IVCON MRI BRAIN BRAIN STEM W/O CONTRAST MATERIAL Geovanna Hoffman PA-C [address] [place] [address] Mr Imaging [id number] Referral ID Status Reason Start Date Expiration Date V isits Requested Visits Authorized [id number] Closed Auto-Generate d Referral 12/24/2023 01/22/2025 1 1 Reason Comments Established Patient MRI results Specialty Diagnoses / Procedures Referred By Levi t Referred To Contact Neurology Diagnoses Diplopia Headaches Procedures CONSULT TO NEUROLOGY OFFICE/OUTPATIENT [facility] 60 MINUTES Lon Garcia APRN.LEISURE TRAVEL AGENT [address] [place] [address] Reason Comments Consult Reason Comments Problem with MRI order Reason Comments Pre-Op Teaching Reason Onset Date Comments Refill Request 03/29/2024 Reason Comments Home Care Confirmation Call Reason Onset Date Comments Refill Request 04/13/2024 Reason Comments Orders Walker Reason Comments Home Care Bandage removal Reason Onset Date Comments Refill Request 04/19/2024 Reason Comments Post Op Hip Replacement Reason Comments Orders Reason Comments F/U 6 Month Reason Comments Insurance Authorization Reason Comments Established Patient Pre-Op Visit Follow Up Pain Reason Onset Date Comments Refill Request 06/25/2024 Care Teams (unrecognized sec tion and content) Lead Javascript Developer Relationship Specialty Start Date End Date Ethan Montero MD [address] [place] [id number] PCP - General Internal Medicine 12/29/15 Lead Javascript Developer Relationship Specialty Start Date End Date Ethan Montero MD [address] [place] [id number] PCP - General Internal Medicine 12/29/15 Lead Javascript Developer Relationship Specialty Start Date End Date Keren Arce MD [address] [place] [id number] PCP - General Internal Medicine 08/10/21 Lead Javascript Developer Relationship Specialty Start Date End Date Keren Arce MD [address] [place] [id number] PCP - General Internal Medicine 08/10/21 Lead Javascript Developer Relationship Specialty Start Date End Date Keren Arce MD [address] [place] [id number] PCP - General Internal Medicine 08/10/21 Lead Javascript Developer Relationship Specialty Start Date End Date Keren Arce MD [address] [place] [id number] PCP - General Internal Medicine 08/10/21 Lead Javascript Developer Relationship Specialty Start Date End Date Keren Arce MD [address] [place] [address] PCP - General Internal Medicine 08/10/21 Lead Javascript Developer Relationship Specialty Start Date End Date Keren Arce MD [facility] [place] [address] PCP - General Internal Medicine 08/10/21 Team Status: Active Member Role Status Dates Dr. Ethan Montero MD Family Provider Active Dr. Keren Arce MD Primary Care Provider Active Team Status: Inactive Member Role Status Dates Dr. Keren Arce MD Primary Care Provider Active Dr. Fuentes Youssef MD Attending Provider, Referr ing Provider Active Lead Javascript Developer Relationship Specialty Start Date End Date Keren Arce MD [address] [place] [id number] PCP - General Internal Medicine 08/10/21 Lead Javascript Developer Relationship Specialty Start Date End Date Keren Arce MD [facility] [place] [address] PCP - General Internal Medicine 08/10/21 Lead Javascript Developer Relationship Specialty Start Date End Date Keren Arce MD [facility] [place] [address] PCP - General Internal Medicine 08/10/21 Lead Javascript Developer Relationship Specialty Start Date End Date Keren Arce MD [address] [place] [id number] PCP - General Internal Medicine 08/10/21 Lead Javascript Developer Relationship Specialty Start Date End Date Keren Arce MD [address] [place] [id number] PCP - General Internal Medicine 08/10/21 Lead Javascript Developer Relationship Specialty Start Date End Date Keren Arce MD [address] [place], [place] [id number] PCP - General Internal Medicine 08/10/21 Team Status: Inactive Member Role Status Dates Dr. Keren Arce MD Primary Care Provider, Referr ing Provider Active Emery Ramirez MD Attending Provider Active Lead Javascript Developer Relationship Specialty Start Date End Date Keren Arce MD [address] [place] [address] PCP - General Internal Medicine 08/10/21 Team Status: Active Member Role Status Dates Dr. Keren Arce MD Primary Care Provider Active Emery Ramirez MD Attending Provider, Referring Provider, Other Provider Active Dr. Prashanth Mullen MD Other Provider Active Team Status: Inactive Member Role Status Dates Dr. Keren Arce MD Primary Care Provider Active Emery Ramirez MD Attending Provider, Referring Prov ider Active Dr. Prashanth Mullen MD Other Provider Active Team Status: Inactive Member Role Status Dates Dr. Keren Arce MD Primary Care Provider Active Emery Ramirez MD Attending Provider Active Lead Javascript Developer Relationship Specialty Start Date End Date Keren Arce MD [address] [place] [address] PCP - General Internal Medicine 08/10/21 Lead Javascript Developer Relationship Specialty Start Date End Date Keren Arce MD [address] [place] [address] PCP - General Internal Medicine 08/10/21 Lead Javascript Developer Relationship Specialty Start Date End Date Keren Arce MD [address] [place], [place] [id number] PCP - General Internal Medicine 08/10/21 Lead Javascript Developer Relationship Specialty Start Date End Date Keren Arce MD [address] [place] [address] PCP - General Internal Medicine 08/10/21 Lead Javascript Developer Relationship Specialty Start Date End Date Keren Arce MD [address] [place] [address] PCP - General Internal Medicine 08/10/21 Lead Javascript Developer Relationship Specialty Start Date End Date Keren Arce MD [address] [place] [address] PCP - General Internal Medicine 08/10/21 Lead Javascript Developer Relationship Specialty Start Date End Date Keren Arce MD [address] [place] [address] PCP - General Internal Medicine 08/10/21 Lead Javascript Developer Relationship Specialty Start Date End Date Keren Arce MD [address] [place] [address] PCP - General Internal Medicine 08/10/21 Lead Javascript Developer Relationship Specialty Start Date End Date Keren Arce MD [address] [place] [address] PCP - General Internal Medicine 08/10/21 Lead Javascript Developer Relationship Specialty Start Date End Date Keren Arce MD [address] [place] [address] PCP - General Internal Medicine 08/10/21 Lead Javascript Developer Relationship Specialty Start Date End Date Keren Arce MD [address] [place] [address] PCP - General Internal Medicine 08/10/21 Lead Javascript Developer Relationship Specialty Start Date End Date Ethan Montero MD [address] [place] [address] PCP - General Internal Medicine 12/29/15 08/09/21 Lead Javascript Developer Relationship Specialty Start Date End Date Ethan Montero MD [address] [place] [address] PCP - General Internal Medicine 12/29/15 08/09/21 Lead Javascript Developer Relationship Specialty Start Date End Date Keren Arce MD [address] [place] [address] PCP - General Internal Medicine 08/10/21 Lead Javascript Developer Relationship Specialty Start Date End Date Keren Arce MD [address] [place] [address] PCP - General Internal Medicine 08/10/21 Lead Javascript Developer Relationship Specialty Start Date End Date Keren Arce MD [address] [place] [address] PCP - General Internal Medicine 08/10/21 Lead Javascript Developer Relationship Specialty Start Date End Date Keren Arce MD [address] [place] [address] PCP - General Internal Medicine 08/10/21 Lead Javascript Developer Relationship Specialty Start Date End Date Keren Arce MD [address] [place] [address] PCP - General Internal Medicine 08/10/21 Lead Javascript Developer Relationship Specialty Start Date End Date Keren Arce MD [address] [place] [address] PCP - General Internal Medicine 08/10/21 Lead Javascript Developer Relationship Specialty Start Date End Date Keren Arce MD [address] [place] [address] PCP - General Internal Medicine 08/10/21 Sissen, Melquiades, [facility] [address] [place] [address] Specialty Metallography Teacher Orthopedics 12/29/23 03/27/24 Lead Javascript Developer Relationship Specialty Start Date End Date Keren Arce MD [address] [place] [address] PCP - General Internal Medicine 08/10/21 Sissen, Melquiades, [facility] [address] [place] [address] Specialty Metallography Teacher Orthopedics 12/29/23 03/27/24 Lead Javascript Developer Relationship Specialty Start Date End Date Keren Arce MD [address] [place] [address] PCP - General Internal Medicine 08/10/21 Sissen, Melquiades, [facility] [address] [place] [address] Specialty Metallography Teacher Orthopedics 12/29/23 03/27/24 Lead Javascript Developer Relationship Specialty Start Date End Date Keren Arce MD [address] [place] [address] PCP - General Internal Medicine 08/10/21 Sissen, Melquiades, [facility] [address] [place] [address] Specialty Metallography Teacher Orthopedics 12/29/23 03/27/24 Lead Javascript Developer Relationship Specialty Start Date End Date Keren Arce MD [address] [place] [address] PCP - General Internal Medicine 08/10/21 Melquiades Almazan, [facility] [address] [place] [address] Specialty Metallography Teacher Orthopedics 12/29/23 03/27/24 Rashid Grimes, INTEGRATION MANAGER.ELECTRIC LOCOMOTIVE CRANE OPERATOR [address] [place] [address] Inspector [facility] Internal Medicine 01/26/24 Lon Garcia INTEGRATION MANAGER.LEISURE TRAVEL AGENT [address] [place] [address] Inspector [facility] Internal Medicine 01/26/24 Lead Javascript Developer Relationship Specialty Start Date End Date Keren Arce MD [address] [place] [address] PCP - General Internal Medicine 08/10/21 Melquiades Almazan, [facility] [address] [place] [address] Specialty Metallography Teacher Orthopedics 12/29/23 05/11/24 Rashid Grimes, INTEGRATION MANAGER.ELECTRIC LOCOMOTIVE CRANE OPERATOR [address] [place] [address] Inspector [facility]lass Internal Medicine 01/26/24 Lon Garcia INTEGRATION MANAGER.LEISURE TRAVEL AGENT [address] [place] [address] Inspector [facility]eglass Internal Medicine 01/26/24 Lead Javascript Developer Relationship Specialty Start Date End Date Keren Arce MD [address] [place] [address] PCP - General Internal Medicine 08/10/21 Melquiades Almazan, [facility] [address] [place] [address] Specialty Metallography Teacher Orthopedics 12/29/23 05/11/24 Rashid Grimes APRN.ELECTRIC LOCOMOTIVE CRANE OPERATOR [address] [place] [address] Inspector [facility] Internal Medicine 01/26/24 Lon Garcia APRN.LEISURE TRAVEL AGENT [address] [place] [address] Inspector [facility]lass Internal Medicine 01/26/24 Lead Javascript Developer Relationship Specialty Start Date End Date Keren Arce MD [address] [place] [address] PCP - General Internal Medicine 08/10/21 Melquiades Almazan, [facility] [address] [place] [address] Specialty Metallography Teacher Orthopedics 12/29/23 05/11/24 Rashid Grimes APRN.ELECTRIC LOCOMOTIVE CRANE OPERATOR [address] [place] [address] Inspector [facility]lass Internal Medicine 01/26/24 Lon Garcia APRN.LEISURE TRAVEL AGENT [address] [place] [address] [facility] Internal Medicine 01/26/24 Lead Javascript Developer Relationship Specialty Start Date End Date Keren Arce MD [address] [place] [address] PCP - General Internal Medicine 08/10/21 Melquiades Almazan, [facility] [address] [place] [address] Specialty Metallography Teacher Orthopedics 12/29/23 05/11/24 Rashid Grimes APRN.ELECTRIC LOCOMOTIVE CRANE OPERATOR [address] [place] [address] Inspector [facility] Internal Medicine 01/26/24 Lon Garcia APRN.LEISURE TRAVEL AGENT [address] [place] [address] Inspector [facility]eglass Internal Medicine 01/26/24 Lead Javascript Developer Relationship Specialty Start Date End Date Keren Arce MD [address] [place] [address] PCP - General Internal Medicine 08/10/21 Melquiades Almazan, [facility] [address] [place] [address] Specialty Metallography Teacher Orthopedics 12/29/23 05/11/24 Rashid Grimes INTEGRATION MANAGER.ELECTRIC LOCOMOTIVE CRANE OPERATOR [address] [place] [address] Inspector [facility] Internal Medicine 01/26/24 Lon Garcia INTEGRATION MANAGER.LEISURE TRAVEL AGENT [address] [place] [address] Inspector [facility] Internal Medicine 01/26/24 Lead Javascript Developer Relationship Specialty Start Date End Date Keren Arce MD [address] [place] [address] PCP - General Internal Medicine 08/10/21 Melquiades Almazan, [facility] [address] [place] [address] Specialty Metallography Teacher Orthopedics 12/29/23 05/11/24 Rashid Grimes, INTEGRATION MANAGER.ELECTRIC LOCOMOTIVE CRANE OPERATOR [address] [place] [address] Inspector [facility]lass Internal Medicine 01/26/24 Lon Garcia APRN.LEISURE TRAVEL AGENT [facility] [place] [address] Inspector Eyeglass Internal Medicine 01/26/24 Lead Javascript Developer Relationship Specialty Start Date End Date Keren Arce MD [address] [place] [address] PCP - General Internal Medicine 08/10/21 Melquiades Almazan, [facility] [address] [place] [address] Specialty Metallography Teacher Orthopedics 12/29/23 05/11/24 Rashid Grimes, INTEGRATION MANAGER.ELECTRIC LOCOMOTIVE CRANE OPERATOR [address] [place] [address] Inspector [facility] Internal Medicine 01/26/24 Lon Garcia INTEGRATION MANAGER.LEISURE TRAVEL AGENT [address] [place] [address] Inspector [facility]lass Internal Medicine 01/26/24 Lead Javascript Developer Relationship Specialty Start Date End Date Keren Arce MD [address] [place] [address] PCP - General Internal Medicine 08/10/21 Melquiades Almazan, [facility] [address] [place] [address] Specialty Metallography Teacher Orthopedics 12/29/23 05/11/24 Rashid Grimes, INTEGRATION MANAGER.ELECTRIC LOCOMOTIVE CRANE OPERATOR [address] [place] [address] Inspector [facility] Internal Medicine 01/26/24 Lon Garcia INTEGRATION MANAGER.LEISURE TRAVEL AGENT [address] [place] [address] Inspector [facility]eglass Internal Medicine 01/26/24 Lead Javascript Developer Relationship Specialty Start Date End Date Keren Arce MD [address] [place] [address] PCP - General Internal Medicine 08/10/21 Melquiades Almazan, [facility] [address] [place] [address] Specialty Metallography Teacher Orthopedics 12/29/23 05/11/24 Rashid Grimes, INTEGRATION MANAGER.ELECTRIC LOCOMOTIVE CRANE OPERATOR [address] [place] [address] Inspector [facility] Internal Medicine 01/26/24 Lon Garcia, INTEGRATION MANAGER.LEISURE TRAVEL AGENT [address] [place] [address] Inspector [facility] Internal Medicine 01/26/24 Gwen Fox, PT [address] [place] [address] Software Systems Analyst Post Acute Care 04/09/24 Lead Javascript Developer Relationship Specialty Start Date End Date Keren Arce MD [address] [place] [address] PCP - General Internal Medicine 08/10/21 Melquiades Almazan, [facility] [address] [place] [address] Specialty Metallography Teacher Orthopedics 12/29/23 05/11/24 Rashid Grimes, INTEGRATION MANAGER.ELECTRIC LOCOMOTIVE CRANE OPERATOR [address] [place] [address] [facility] Internal Medicine 01/26/24 Lon Garcia INTEGRATION MANAGER.LEISURE TRAVEL AGENT [address] [place] [address] Inspector Eyeglass Internal Medicine 01/26/24 Gwen Fox, PT [address] [place], [place] [id number] Software Systems Analyst Post Acute Care 04/09/24 Lead Javascript Developer Relationship Specialty Start Date End Date Keren Arce MD [address] [place] [address] PCP - General Internal Medicine 08/10/21 Melquiades Almazan, [facility] [address] [place] [address] Specialty Metallography Teacher Orthopedics 12/29/23 05/11/24 Rashid Grimes APRN.ELECTRIC LOCOMOTIVE CRANE OPERATOR [address] [place] [address] Inspector [facility] Internal Medicine 01/26/24 Lon Garcia INTEGRATION MANAGER.LEISURE TRAVEL AGENT [address] [place] [address] Inspector Eyeglass Internal Medicine 01/26/24 Gwen Fox, PT [address] [place] [address] Software Systems Analyst Post Acute Care 04/09/24 Lead Javascript Developer Relationship Specialty Start Date End Date Keren Arce MD [address] [place] [address] PCP - General Internal Medicine 08/10/21 Melquiades Almazan, [facility] [address] [place] [address] Specialty Metallography Teacher Orthopedics 12/29/23 05/11/24 Rashid Grimes, INTEGRATION MANAGER.ELECTRIC LOCOMOTIVE CRANE OPERATOR [address] [place] [address] [facility] Internal Medicine 01/26/24 Lon Garcia INTEGRATION MANAGER.LEISURE TRAVEL AGENT [address] [place] [address] Inspector Eyeglass Internal Medicine 01/26/24 Gwen Fox, PT [address] [place] [address] Software Systems Analyst Post Acute Care 04/09/24 Lead Javascript Developer Relationship Specialty Start Date End Date Keren Arce MD [address] [place] [address] PCP - General Internal Medicine 08/10/21 Melquiades Almazan, [facility] [address] [place] [address] Specialty Metallography Teacher Orthopedics 12/29/23 05/11/24 Rashid Grimes, INTEGRATION MANAGER.ELECTRIC LOCOMOTIVE CRANE OPERATOR [address] [place] [address] Inspector [facility] Internal Medicine 01/26/24 Lon Garcia, INTEGRATION MANAGER.LEISURE TRAVEL AGENT [address] [place] [address] Inspector [facility]eglass Internal Medicine 01/26/24 Gwen Fox, PT [address] [place] [address] Software Systems Analyst Post Acute Care 04/09/24 Lead Javascript Developer Relationship Specialty Start Date End Date Keren Arce MD [address] [place] [address] PCP - General Internal Medicine 08/10/21 Melquiades Almazan, [facility] [address] [place] [address] Specialty Metallography Teacher Orthopedics 12/29/23 05/11/24 Rashid Grimes, INTEGRATION MANAGER.ELECTRIC LOCOMOTIVE CRANE OPERATOR [address] [place] [address] Inspector [facility] Internal Medicine 01/26/24 Lon aGrcia, INTEGRATION MANAGER.LEISURE TRAVEL AGENT [address] [place] [address] Inspector Eyeglass Internal Medicine 01/26/24 Gwen Fox, PT [address] [place] [address] Software Systems Analyst Post Acute Care 04/09/24 Lead Javascript Developer Relationship Specialty Start Date End Date Keren Arce MD [address] [place] [address] PCP - General Internal Medicine 08/10/21 Melquiades Almazan, [facility] [address] [place] [address] Specialty Metallography Teacher Orthopedics 12/29/23 05/11/24 Rashid Grimes, INTEGRATION MANAGER.ELECTRIC LOCOMOTIVE CRANE OPERATOR [address] [place] [address] Inspector [employer]lass Internal Medicine 01/26/24 Lon Garcia INTEGRATION MANAGER.LEISURE TRAVEL AGENT [address] [place] [address] Inspector Eyeglass Internal Medicine 01/26/24 Gwen Fox, PT [address] [place] [address] Software Systems Analyst Post Acute Care 04/09/24 Lead Javascript Developer Relationship Specialty Start Date End Date Keren Arce MD [address] [place] [address] PCP - General Internal Medicine 08/10/21 Melquiades Almazan, [facility] [address] [place] [address] Specialty Metallography Teacher Orthopedics 12/29/23 05/11/24 Rashid Grimes, INTEGRATION MANAGER.ELECTRIC LOCOMOTIVE CRANE OPERATOR [address] [place] [address] Inspector [facility]lass Internal Medicine 01/26/24 Lon Garcia INTEGRATION MANAGER.LEISURE TRAVEL AGENT [address] [place] [address] Inspector Eyeglass Internal Medicine 01/26/24 Gwen Fox, PT [address] [place] [address] Software Systems Analyst Post Acute Care 04/09/24 Lead Javascript Developer Relationship Specialty Start Date End Date Keren Arce MD [address] [place] [address] PCP - General Internal Medicine 08/10/21 Melquiades Almazan, [facility] [address] [place] [address] Specialty Metallography Teacher Orthopedics 12/29/23 05/11/24 Rashid Grimes, INTEGRATION MANAGER.ELECTRIC LOCOMOTIVE CRANE OPERATOR [address] [place] [address] Inspector [employer] Internal Medicine 01/26/24 Lon Garcia INTEGRATION MANAGER.LEISURE TRAVEL AGENT [address] [place] [address] Inspector Eyeglass Internal Medicine 01/26/24 Gwen Fox, PT [address] [place] [address] Software Systems Analyst Post Acute Care 04/09/24 Lead Javascript Developer Relationship Specialty Start Date End Date Keren Arce MD [address] [place] [address] PCP - General Internal Medicine 08/10/21 Melquiades Almazan, [facility] [address] [place] [address] Specialty Metallography Teacher Orthopedics 12/29/23 05/11/24 Rashid Grimes, INTEGRATION MANAGER.ELECTRIC LOCOMOTIVE CRANE OPERATOR [address] [place] [address] Inspector [employer]lass Internal Medicine 01/26/24 Lon Garcia INTEGRATION MANAGER.LEISURE TRAVEL AGENT [address] [place] [address] Inspector Eyeglass Internal Medicine 01/26/24 Gwen Fox, PT [address] [place] [address] Software Systems Analyst Post Acute Care 04/09/24 Lead Javascript Developer Relationship Specialty Start Date End Date Keren Arce MD [address] [place] [address] PCP - General Internal Medicine 08/10/21 Melquiades Almazan, [facility] [address] [place] [address] Specialty Metallography Teacher Orthopedics 12/29/23 05/11/24 Rashid Grimes, INTEGRATION MANAGER.ELECTRIC LOCOMOTIVE CRANE OPERATOR [address] [place] [address] Inspector [facility] Internal Medicine 01/26/24 Lon Garcia, INTEGRATION MANAGER.LEISURE TRAVEL AGENT [address] [place] [address] Inspector [facility]lass Internal Medicine 01/26/24 Gwen Fox, PT [address] [place] [address] Software Systems Analyst Post Acute Care 04/09/24 Lead Javascript Developer Relationship Specialty Start Date End Date Keren Arce MD [address] [place] [address] PCP - General Internal Medicine 08/10/21 Melquiades Almazan, [facility] [address] [place] [address] Specialty Metallography Teacher Orthopedics 12/29/23 05/11/24 Rashid Grimes, INTEGRATION MANAGER.ELECTRIC LOCOMOTIVE CRANE OPERATOR [address] [place] [address] Inspector [facility] Internal Medicine 01/26/24 Lon Garcia, INTEGRATION MANAGER.LEISURE TRAVEL AGENT [address] [place] [address] Inspector [facility]lass Internal Medicine 01/26/24 Gwen Fox, PT [address] [place] [address] Software Systems Analyst Post Acute Care 04/09/24 Lead Javascript Developer Relationship Specialty Start Date End Date Keren Arce MD [address] [place] [address] PCP - General Internal Medicine 08/10/21 Melquiades Almazan, [facility] [address] [place] [address] Specialty Metallography Teacher Orthopedics 12/29/23 05/11/24 Rashid Grimes INTEGRATION MANAGER.ELECTRIC LOCOMOTIVE CRANE OPERATOR [address] [place] [address] Inspector [facility] Internal Medicine 01/26/24 Lon Garcia INTEGRATION MANAGER.LEISURE TRAVEL AGENT [address] [place] [address] Inspector [employer]eglass Internal Medicine 01/26/24 Lead Javascript Developer Relationship Specialty Start Date End Date Keren Arce MD [address] [place] [address] PCP - General Internal Medicine 08/10/21 Melquiades Almazan, [facility] [address] [place] [address] Specialty Metallography Teacher Orthopedics 12/29/23 05/11/24 Rashid Grimes INTEGRATION MANAGER.ELECTRIC LOCOMOTIVE CRANE OPERATOR [address] [place] [address] Inspector [facility] Internal Medicine 01/26/24 Lon Garcia APRN.LEISURE TRAVEL AGENT [address] [place] [address] Inspector [employer]lass Internal Medicine 01/26/24 Lead Javascript Developer Relationship Specialty Start Date End Date Keren Arce MD [address] [place] [address] PCP - General Internal Medicine 08/10/21 Melquiades Almazan, [facility] [address] [place] [address] Specialty Metallography Teacher Orthopedics 12/29/23 05/11/24 Rashid Grimes, INTEGRATION MANAGER.ELECTRIC LOCOMOTIVE CRANE OPERATOR [address] [place] [address] Inspector [facility] Internal Medicine 01/26/24 Lon Garcia INTEGRATION MANAGER.LEISURE TRAVEL AGENT [address] [place] [address] Inspector Eyeglass Internal Medicine 01/26/24 Lead Javascript Developer Relationship Specialty Start Date End Date Keren Arce MD [address] [place] [address] PCP - General Internal Medicine 08/10/21 Melquiades Almazan, [facility] [address] [place] [address] Specialty Metallography Teacher Orthopedics 12/29/23 05/11/24 Rashid Grimes, INTEGRATION MANAGER.ELECTRIC LOCOMOTIVE CRANE OPERATOR [address] [place] [address] Inspector [facility] Internal Medicine 01/26/24 Lon Garcia INTEGRATION MANAGER.LEISURE TRAVEL AGENT [address] [place] [address] Inspector [facility]eglass Internal Medicine 05/11/24 Lead Javascript Developer Relationship Specialty Start Date End Date Keren Arce MD [address] [place] [address] PCP - General Internal Medicine 08/10/21 Rashid Grimes, INTEGRATION MANAGER.ELECTRIC LOCOMOTIVE CRANE OPERATOR [address] [place] [address] Inspector [facility]lass Internal Medicine 01/26/24 Lon Garcia APRN.LEISURE TRAVEL AGENT [address] [place] [address] Inspector Eyeglass Internal Medicine 05/11/24 Lead Javascript Developer Relationship Specialty Start Date End Date Keren Arce MD [address] [facility] [place] [address] PCP - General Internal Medicine 08/10/21 Rashid Grimes, INTEGRATION MANAGER.ELECTRIC LOCOMOTIVE CRANE OPERATOR [address] [facility] [place] [address] Inspector [facility]eglass Internal Medicine 01/26/24 Lon Garcia INTEGRATION MANAGER.LEISURE TRAVEL AGENT [address] [facility] [place] [address] Inspector [employer]eglass Internal Medicine 05/11/24 Lead Javascript Developer Relationship Specialty Start Date End Date Keren Arce MD [address] [place] [address] PCP - General Internal Medicine 08/10/21 Rashid Grimes, INTEGRATION MANAGER.ELECTRIC LOCOMOTIVE CRANE OPERATOR [address] [facility] [place] [address] Inspector [employer]lass Internal Medicine 01/26/24 Lon Garcia INTEGRATION MANAGER.LEISURE TRAVEL AGENT [address] [facility] [place] [address] [facility] Internal Medicine 05/11/24 Lead Javascript Developer Relationship Specialty Start Date End Date Keren Arce MD [address] [facility] [place] [address] PCP - General Internal Medicine 08/10/21 Rashid Grimes, INTEGRATION MANAGER.ELECTRIC LOCOMOTIVE CRANE OPERATOR [address] [place], [place] [address] Inspector [employer]lass Internal Medicine 01/26/24 Lon Garcia INTEGRATION MANAGER.LEISURE TRAVEL AGENT [address] [place], [place] [address] [facility] Internal Medicine 05/11/24 Lead Javascript Developer Relationship Specialty Start Date End Date Keren Arce MD [address] [place], [place] [address] PCP - General Internal Medicine 08/10/21 Rashid Grimes, INTEGRATION MANAGER.ELECTRIC LOCOMOTIVE CRANE OPERATOR [address] [place] [address] [facility] Internal Medicine 01/26/24 Lon Garcia INTEGRATION MANAGER.LEISURE TRAVEL AGENT [address] [place], [place] [address] [facility] Internal Medicine 05/11/24 Goals (unrecognized section and content) Goals may be documented in a n alternate section Care Team (unrecognized sect ion and content) Care Team Personnel Name: KEREN ARCE MD Member Role: Primary Care Physician Address: Address: [address] [place] [address]- Care Team Related Persons Name: ANT OCAMPO (unrecognized sect ion and content) No Status Records FoundNo Status Records FoundNo Status Records FoundNo Status Records FoundNo Status Records Found INFORMATION SOURCE (unrecogn ized section and content) DATE CREATED AUTHOR 09/14/2023 [facility] ([place]) DATE CREATED AUTHOR AUTHOR'S ORGANIZ ATION 04/24/2024 [facility] DATE CREATED AUTHOR AUTHOR'S ORGANIZ ATION 07/01/2024 [facility] DATE CREATED AUTHOR AUTHOR'S ORGANIZ ATION 07/21/2024 [facility] DATE CREATED AUTHOR AUTHOR'S ORGANELIS ATION 07/25/2024 [facility] FOR RECORDS PERTAINING TO PATIENTS WHO ARE OR HAVE BEEN ENROLLED IN A CHEMICAL DEPENDENCY/SUBSTANCEABUSE PROGRAM, SOME INFORMATION MAY BE OMITTED. This clinical summary was aggregated from multiple sources. Caution should be exercised in using it in the provision of clinical care. This summary normalizes information from multiple sources, and as a consequence, information in this document may materially change the coding, format and clinical context of patient data. In addition, data may be omitted in some cases. CLINICAL DECISIONS SHOULD BE BASED ON THE PRIMARY CLINICAL RECORDS. [facility] [facility]. provides no warranty or guarantee of the accuracy or completeness of information in this document.
[2024-08-05] MEDS: Lactated Ringers 1,000 ML 15 ML IV (07:23)
--- NOTE | 2024-08-05 07:27 | PCM.PRE.AN2 ---
ASA Classification* ASA Classification ASA Classification: 3 (CAD, cardiomyopathy, dyspnea (chronic), HTN, GERD, DM, RAJI (untreated)) Assessment & Plan Anesthesia* Anesthesia Assessment Anesthesia Assessment: Discussed sedation and/or anesthesia options, risks, benefits, and alternatives with patient/parents/legal guardian/POA. Questions invited. The patient/parents/legal guardian/POA seems to understand and agrees to proceed with anesthesia plan. Reviewed the physical assessment, medical history, allergy history and patient home medications list prior to surgery/procedure/anesthetic and documented any changes. Performed airway and anesthesia risk assessments. Anesthesia Type Anesthesia Type: MAC History Source History Obtained from:: Patient and Chart Anesthesia Focused Assessment* Temperature: 97.1 F Pulse Rate: 78 Blood Pressure: 132/82 Respiratory Rate: 16 Pulse Ox: 98 Oxygen Delivery Method: Room Air Airway Assessment Mouth opens: >3 cm Mallampati Score: III Teeth Condition: Intact, Caps/Crowns and Missing Neck Range of motion (ROM): Full ROM Labs Anesthesia Preop lab: CBC WBC 9.4 K/mm3 (4.4-11.0) 10/31/22 09:16 10/31/22 RBC 5.22 M/mm3 (4.6-6.2) 10/31/22 09:16 10/31/22 Hgb 14.6 g/dL (13.0-16.5) 10/31/22 09:16 10/31/22 Hct 47.0 % (40-54) 10/31/22 09:16 10/31/22 Plt Count 171 K/mm3 (150-450) 10/31/22 09:16 10/31/22 CHEMISTRY Potassium 4.5 mmol/L (3.5-5.1) 10/31/22 09:16 10/31/22 Sodium 137 mmol/L (136-145) 10/31/22 09:16 10/31/22 Magnesium 1.9 mg/dL (1.6-2.6) 12/30/20 12:30 12/30/20 BUN 13 mg/dL (7-18) 10/31/22 09:16 10/31/22 Creatinine 0.77 mg/dL (0.70-1.30) 10/31/22 09:16 10/31/22 Glucose 136 mg/dL (74-106) H 09/14/23 09:16 10/31/22 POC Glucose 118 mg/dL (74-106) H 11/13/22 09:11 11/13/22 TSH 1.05 uIU/mL (0.358-3.74) 12/30/20 12:30 12/30/20 COAG PT 12.9 SECONDS (11.7-14.9) 10/31/22 09:16 10/31/22 Pre-Assessment Diagnosis/Proposed Procedure Planned Operative Procedure(s): EGD, COLONOSCOPY Anesthesia History 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 When Was Last Pacemaker Check QUESTION #4 FULL TEXT: You/Your Family Experience fever (hyperthermia) with Anesthesia Last Oral Intake Last Oral intake: Last Oral Intake NPO since 13:00 08/05/24 07:06 Meds taken in AM with sips of Yes 08/05/24 07:06 water? 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 Female No 08/04/24 09:21 HX of Motion Sickness No 08/04/24 09:21 HX of N/V After Surgery No 08/04/24 09:21 Non-Smoker Yes 08/04/24 09:21 Duration of Surgery greater No 08/04/24 09:21 than 60 minutes Number of Risk Factors 1 08/04/24 09:21 PONV Score Low Risk 08/04/24 09:21 Height & Weight Height & Weight: Anesthesia: Height & Weight Height 5 ft 6.93 in 08/05/24 07:06 Weight: 97.7 kg 08/05/24 07:06 Body Mass Index (BMI) 33.7 08/05/24 07:06 Respiratory Assessment Respiratory Assessment - 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 Has anyone observed you stop No 08/04/24 09:21 breathing during sleep? STOP Results Positive 08/04/24 09:21 QUESTION #5 FULL TEXT : Do you snore loudly (louder than talking or can be heard through closed doors)? 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 Specify any problems Hx of Preganancy in last 3 N/A 08/04/24 09:21 Months Nurse Filling Out Transfusion VLEHMAN 08/04/24 09:21 & Questions: Date: 08/04/24 08/04/24 09:21 Time: 09:33 08/04/24 09:21 Patient unable to answer at this time (ie. 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 operator Hx Now Gestational Age (in weeks): EDC: Hx Hx Para Hx Section SAB Active Medications Active Medications: Current Medications Generic Name Dose Route Start Last Admin Trade Name Freq PRN Reason Stop Dose Admin Lactated Ringer's 1,000 mls @ 15 mls/hr 08/05/24 07:00 08/05/24 07:23 IV 15 mls/hr .Q48H VLADIMIR Administration PFSH Medical History (Updated 08/04/24 @ 09:32 by Carolyn Aponte) Heartburn History of atrial fibrillation Cancer Depression Anxiety Alcohol use Diabetes Arthritis Kidney stones Fatty liver High cholesterol Excessive bleeding Back pain Injury of head and neck Loss of consciousness History of diverticulitis Gastric reflux Former smoker History of echocardiogram History of stress test Hypertension Cardiology follow-up encounter History of irregular heartbeat Left rotator cuff tear Internal impingement of left shoulder Prostate cancer Left shoulder pain Home Medications ?Medication ?Instructions ?Recorded ?Last Taken ?Type atorvastatin 40 mg tablet 40 mg PO QHS 04/29/22 Unknown History metoprolol succinate 50 mg 25 mg PO QHS 04/29/22 08/05/24 04:10 History tablet,extended release 24 hr sacubitril 49 mg-valsartan 51 mg 1 tab PO BID 04/29/22 11/13/22 History tablet (Entresto) magnesium 250 mg tablet 250 mg PO BID 10/17/22 Unknown History aspirin 81 mg capsule 81 mg PO DAILY 10/30/22 08/01/24 History cholecalciferol (vitamin D3) 25 50 mcg PO DAILY 10/30/22 Unknown History mcg (1,000 unit) capsule (Vitamin D3) famotidine 20 mg tablet (Pepcid) 20 mg PO QHS 05/24/24 Unknown History metformin 500 mg tablet 500 mg PO BID 05/24/24 Unknown History pantoprazole 40 mg tablet,delayed 40 mg PO BID #60 tabs 05/24/24 Unknown Rx release venlafaxine 37.5 mg 75 mg PO QHS 05/24/24 Unknown History capsule,extended release 24 hr Allergy/AdvReac Type Severity Reaction Status Date / Time lisinopril AdvReac cough Verified 08/04/24 09:13 Surgical History (Updated 08/04/24 @ 10:26 by Carolyn Aponte) History of right hip replacement History of shoulder surgery History of cardiac catheterization Hx of colonoscopy Hx of prostatectomy Social History (Updated 11/10/23 @ 09:27 by Bren Jimenez) Smoking Status: Former smoker alcohol intake: current alcohol intake frequency: a few times a week substance use type: does not use what type of physical activity do you participate in: none Review of Systems (Anesthesia) ROS Narrative System reviewed and no additional complaints, except as documented. Physical Exam Const alert and oriented x3 Nutritional Appearance: obese Resp normal respiratory effort, normal air movement and clear to auscultation bilaterally Cardio regular rate, regular rhythm, no murmurs and diaphoretic
--- NOTE | 2024-08-05 07:45 | EGD_PTH ---
PATIENT: DESTINEY OCAMPO LOC: EN U#:[id number] AGE/SX: 74/M ROOM: RE08/05/[address]: Dr. Rashad Jackson DO : 1950 BED: DIS: 08/05/2024 SPEC #: [id number] RECD: 08/05/24 10:48 STATUS: TAYLOR ANGELICA #: [id number] NOEL: 08/05/24 07:[address]: Rashad Jackson DEPT: SURGICAL PATHOLOGY RECD BY: Ed Castro ENTERED: 08/05/24 12:08 SP TYPE: EGD BIOPSY SHERICE DR: Dr. Sarah Winkler MD Tissues: A - Duodenum, NOS B - Duodenum, NOS C - Gastric mucous membrane D - Gastric mucous membrane E - SPLENIC FLEXURE Procedures: Immunohistochemical Stains Surgery Specimen Level IV HEADER OPERATION: Colonoscopy, EGD and polypectomy and biopsy PRE-OP DIAGNOSIS: GERD and gastritis TISSUE SUBMITTED: A- Duodenal polyp biopsy, B- Duodenal biopsy, C- Gastric body polyp biopsy, D- Gastric cardia polyp, E- Splenic flexure polyp MICROSCOPIC DIAGNOSIS A. Duodenum, polyp, biopsy: - Polypoid small intestinal mucosa with extensive gastric foveolar metaplasia/heterotopia. - Negative for dysplasia (deeper sections examined). B. Duodenum, biopsy: - No specific pathologic change. - Negative for increased intraepithelial lymphocytes. C. Gastric body, polyp, biopsy: - Oxyntic mucosa with polypoid foveolar hyperplasia. D. Gastric cardia, polyp, biopsy: - Hyperplastic polyp, ulcerated. - Pankeratin IHC is negative for architectural evidence of malignancy. E. Splenic flexure, colon, polyp, biopsy: - Hyperplastic polyp. MICROSCOPIC DESCRIPTION Slides are reviewed. All matched controls reacted appropriately. These tests were developed and their performance characteristics determined by [facility]. They may not have been cleared or approved by the U.S. Food and Drug Administration. The FDA has determined that such clearance or approval is not necessary.? The above immunohistochemical/dualISH?markers are reviewed by the Pathologist. GROSS DESCRIPTION A. Received in fixative is one container labeled with the patient's name and designated Duodenal polyp biopsy. The specimen consists of two irregular fragments of light blanco soft tissue that in aggregate measure 0.2 and 0.3 cm. The specimen is totally submitted in one cassette. B. Received in fixative is one container labeled with the patient's name and designated Duodenal biopsy. The specimen consists of three irregular fragments of light blanco soft tissue that in aggregate measure 0.1 to 0.3 cm. The specimen is totally submitted in one cassette. C. Received in fixative is one container labeled with the patient's name and designated Gastric body polyp biopsy. The specimen consists of two irregular fragments of light blanco soft tissue that in aggregate measure 0.4 and 0.7 cm. The specimen is totally submitted in one cassette. D. Received in fixative is one container labeled with the patient's name and designated Gastric cardia polyp. The specimen consists of multiple irregular fragments of light blanco soft tissue that in measure 1.4 x 0.6 x 0.1 cm in aggregate. The specimen is totally submitted in one cassette. E. Received in fixative is one container labeled with the patient's name and designated Splenic flexure polyp. The specimen consists of two irregular fragments of light blanco soft tissue that in aggregate measure <0.1 and 0.5 cm and vegetable material. The specimen is totally submitted in one cassette. [email or web address].mr 08/05/2024 CPT:31345i6,92244
--- NOTE | 2024-08-05 08:10 | HP.PCM_ITS ---
HPI - General General Date of Admission: 08/05/24 Date of Service: 08/05/24 Chief Complaint: Gastritis HPI Narrative DESTINEY OCAMPO, is a 74 M who presents for endoscopy He has been having for complaints of gastritis. Recent labs from 05.07.24: AlkPh 118, AST 13, amylase/lipase/CBC OK; c/o occasional heartburn with difficulty swallowing about once a week, takes omeprazole 20mg BID and just started taking famotidine; constipation-takes Miralax daily; HLD, DM-A1c 6.9. c/o LUQ pinch, takes Advil/Aleve frequently s/p right total hip replacement surgery 6 weeks ago. Last colonoscopy/EGD done more than 15 years ago, known gastritis. Former smoker and chronic ETOH use. Diet mostly consists of pasta, red meats and potatoes, limited dietary fiber intake. He reports excessive gas, bloating, and external hemorrhoids. He denies difficulty chewing, diarrhea, hematochezia, and melena. [facility] Medical History Heartburn History of atrial fibrillation Cancer Depression Anxiety Alcohol use Diabetes Arthritis Kidney stones Fatty liver High cholesterol Excessive bleeding Back pain Injury of head and neck Loss of consciousness History of diverticulitis Gastric reflux Former smoker History of echocardiogram History of stress test Hypertension Cardiology follow-up encounter History of irregular heartbeat Left rotator cuff tear Internal impingement of left shoulder Prostate cancer Left shoulder pain Home Medications ?Medication ?Instructions ?Recorded ?Last Taken ?Type atorvastatin 40 mg tablet 40 mg PO QHS 04/29/22 Unknow n History metoprolol succinate 50 mg 25 mg PO QHS 04/29/2208/05 04:10 History tablet,extended release 24 hr sacubitril 49 mg-valsartan 51 mg 1 tab PO BID 04/29/22 11/13/22 History tablet (Entresto) magnesium 250 mg tablet 250 mg PO BID 10/17/22 Unkno wn History aspirin 81 mg capsule 81 mg PO DAILY 10/30/2207/18 History cholecalciferol (vitamin D3) 25 50 mcg PO DAILY Unknown History mcg (1,000 unit) capsule (Vitamin D3) famotidine 20 mg tablet (Pepcid) 20 mg PO QHS 05/24/24 Unknown History metformin 500 mg tablet 500 mg PO BID 05/24/24 Unkno wn History pantoprazole 40 mg tablet,delayed 40 mg PO BID #60 tab s 05/24/24 Unknown Rx release venlafaxine 37.5 mg 75 mg PO QHS 05/24/24 Unknow n History capsule,extended release 24 hr Allergy/AdvReac Type Severity Reaction Status Date / Time lisinopril AdvReac cough Verified 08/04/24 09:13 Surgical History History of right hip replacement History of shoulder surgery History of cardiac catheterization Hx of colonoscopy Hx of prostatectomy Social History Smoking Status: Former smoker alcohol intake: current alcohol intake frequency: a few times a week substance use type: does not use what type of physical activity do you participate in: none ROS Constitutional Constitutional: Denies fatigue, fever(s), poor appetite, weight gain or weight loss Gastrointestinal Gastrointestinal: Denies belching, bloating, change in bowel habits, change in stool character, chewing difficulty, coffee ground emesis, constipation, cramping, diarrhea, dyspepsia, dysphagia, early satiety, excessive flatus, fecal incontinence, heartburn, hematemesis, hematochezia, hemorrhoids, loose stools, melena, nausea, odynophagia, rectal bleeding, tenesmus, vomiting or weight changes Vital Signs Vital Signs Vital Signs: 08/05/24 07:06 08/05/24 07:06 08/05/24 07:37 Temperature 97.1 F L 97.1 F L Temperature Source Temporal Pulse Rate 78 78 Respiratory Rate 16 16 Respiratory Pattern Normal Blood Pressure 132/82 H 132/82 H Blood Pressure Mean 98 Blood Pressure Source Monitor Blood Pressure Position Semi-Fowlers Blood Pressure Location Right Arm Pulse Ox 98 98 Oxygen Delivery Method Room Air Room Air Weight Weight: 215 lb 6.266 oz Body Mass Index (BMI) 33.7 Physical Exam Const alert, oriented x3, no apparent distress and healthy appearing General Appearance: cooperative GI normal to inspection, nondistended, normoactive bowel sounds, soft to palpation, non-tender and non-distended Percussion: normal to percussion Rectal Exam: deferred Assessment & Plan Assessment/Plan (1) Gastritis: QUALIFIERS: Gastritis type: unspecified gastritis Chronicity: chronic Gastritis bleeding: without bleeding Qualified Code(s): K29.50 - Unspecified chronic gastritis without bleeding (2) GERD (gastroesophageal reflux disease): QUALIFIERS: Esophagitis presence: esophagitis presence not specified Qualified Code(s): K21.9 - Gastro-esophageal reflux disease without esophagitis PLAN: Assessment and Plan Assessment and Plan (1) GERD (gastroesophageal reflux disease): Status: Acute Qualifiers: Esophagitis presence: esophagitis presence not specified Qualified Code(s): K21.9 - Gastro-esophageal reflux disease without esophagitis (2) Gastritis: Status: Acute Qualifiers: Gastritis type: unspecified gastritis Chronicity: chronic Gastritis bleeding: without bleeding Qualified Code(s): K29.50 - Unspecified chronic gastritis without bleeding Medications: New pantoprazole 40 mg PO BID 60 tabs 3RF Discontinued omeprazole Discontinued Reason: Order Changed 20 mg PO BID Plan DESTINEY SHANNONY, is a 74 M who presents to the office today for establishment with [facility] for complaints of gastritis. Encouraged dietary fiber intake as psyllium husk doesn't help. Discussed care plan with him and his . Questions answered. * change omeprazole to pantoprazole 40mg PO twice daily 30minutes before breakfast and dinner * continue famotidine, take at bedtime * limit NSAIDs, take with food if needed * schedule EGD to investigate gastritis * schedule screening colonoscopy * office FU after dual scopes for results Coding Level of Care Code New Pt Off vis,new,level 3 Patient Type New History Comprehensive Exam Detailed Medical Decision Making Low Complexity Diagnoses Gastroesophageal reflux disease, unspecified whether esophagitis present K21.9 Esophagitis presence: esophagitis presence not specified Chronic gastritis without bleeding, unspecified gastritis type K29.50 Gastritis type: unspecified gastritis Chronicity: chronic Gastritis bleeding: without bleeding
[2024-08-05 08:28] LABS: Bedside Glucose 130 mg/dL (74-106)
--- NOTE | 2024-08-05 09:05 | PCM.POST.ANE ---
Anesthesia: Postop Eval I Current Vital Signs Temperature: 98.3 F Pulse Rate: 67 Blood Pressure: 99/67 Respiratory Rate: 16 Pulse Ox: 100 Oxygen Delivery Method: Room Air Assessment Airway patent: Yes Spontaneous unlabored respirations: Yes Mental status: Awake and Calm nausea: No Vomiting: No Anesthesia Complication: No Fluid Hydration Crystalloid volume administer (ml): 800 Total IV fluid infused: 800 Progress Note Anesthesia document: Postop Eval 1 completed: Yes
--- NOTE | 2024-08-05 09:10 | OP.CCLET_ITS ---
08/05/2024 Sarah Winkler [address] [place] [address] Re : Upper GI endoscopy procedure for Robles Jerome Dear Dr. Winkler This procedure was performed on July. My impressions and recommendations are as follows: Impressions : - No gross lesions in the entire esophagus. - A single gastric polyp. Resected and retrieved. - A single gastric polyp. Biopsied. - A single duodenal polyp. Resected and retrieved. - Duodenitis. Biopsied. Recommendations : - Discharge patient to home. - Resume previous diet. - Continue present medications. - Await pathology results. My findings are described in the full procedure note, which is enclosed. If I can be of further assistance, please feel free to contact me at . Sincerely, Rashad Jackson, 08/05/2024 9:09:35 AM This report has been signed electronically.
--- NOTE | 2024-08-05 09:10 | OP.EGD_ITS ---
Patient Name: Robles Jerome Procedure Date: 08/05/2024 8:16 AM Date of : 1950 Age: 74 Procedure: Upper GI endoscopy Indications: Epigastric abdominal pain, Functional Dyspepsia, Dyspepsia Providers: Rashad Jackson DO Referring MD: Sarah Winkler Medicines: Monitored Anesthesia Care Patient Profile: This is a 74 year old male. Refer to note in patient chart for documentation of history and physical. Patient has symptoms of chronic abdominal cramping and chronic epigastric abdominal pain. Complications: No immediate complications. Procedure: Pre-Anesthesia Assessment: - Prior to the procedure, a History and Physical was performed, and patient medications and allergies were reviewed. The patient is competent. The risks and benefits of the procedure and the sedation options and risks were discussed with the patient. All questions were answered and informed consent was obtained. Patient identification and proposed procedure were verified by the physician in the pre-procedure area. Mental Status Examination: alert and oriented. Airway Examination: normal oropharyngeal airway and neck mobility. Respiratory Examination: clear to auscultation. CV Examination: normal. Prophylactic Antibiotics: The patient does not require prophylactic antibiotics. Prior Anticoagulants: The patient has taken no anticoagulant or antiplatelet agents. ASA Grade Assessment: II - A patient with mild systemic disease. After reviewing the risks and benefits, the patient was deemed in satisfactory condition to undergo the procedure. The anesthesia plan was to use monitored anesthesia care (MAC). Immediately prior to administration of medications, the patient was re-assessed for adequacy to receive sedatives. The heart rate, respiratory rate, oxygen saturations, blood pressure, adequacy of pulmonary ventilation, and response to care were monitored throughout the procedure. The physical status of the patient was re-assessed after the procedure. After obtaining informed consent, the endoscope was passed under direct vision. Throughout the procedure, the patient's blood pressure, pulse, and oxygen saturations were monitored continuously. The Colonoscope was introduced through the mouth, and advanced to the fourth part of the duodenum. Small bowel enteroscopy was deemed necessary. The upper GI endoscopy was accomplished without difficulty. The patient tolerated the procedure well. Scope In: 8:26:00 AM Scope Out: 8:36:03 AM Total Procedure Duration Time 0 hours 10 minutes 3 seconds Findings: No gross lesions were noted in the entire esophagus. A single 8 mm sessile polyp with bleeding and stigmata of recent bleeding was found in the cardia. The polyp was removed with a hot snare. Resection and retrieval were complete. Verification of patient identification for the specimen was done. Estimated blood loss was minimal. A single 5 mm sessile polyp with no stigmata of recent bleeding was found in the gastric antrum. Biopsies were taken with a cold forceps for histology. Verification of patient identification for the specimen was done. Estimated blood loss was minimal. A single 5 mm sessile polyp was found in the duodenal bulb. The polyp was removed with a jumbo cold forceps. Resection and retrieval were complete. Verification of patient identification for the specimen was done. Patchy mild inflammation characterized by adherent blood, erosions and erythema was found in the duodenal bulb, in the first portion of the duodenum, in the second portion of the duodenum and in the third portion of the duodenum. Biopsies were taken with a cold forceps for histology. Verification of patient identification for the specimen was done. Estimated blood loss was minimal. Impression: - No gross lesions in the entire esophagus. - A single gastric polyp. Resected and retrieved. - A single gastric polyp. Biopsied. - A single duodenal polyp. Resected and retrieved. - Duodenitis. Biopsied. Recommendation: - Discharge patient to home. - Resume previous diet. - Continue present medications. - Await pathology results. Procedure Code(s): --- Professional --- 39238, Small intestinal endoscopy, enteroscopy beyond second portion of duodenum, not including ileum; with removal of tumor(s), polyp(s), or other lesion(s) by snare technique 96959, 59,51, Small intestinal endoscopy, enteroscopy beyond second portion of duodenum, not including ileum; with biopsy, single or multiple CPT copyright 2021 [employer]. All rights reserved. The codes documented in this report are preliminary and upon professional fee coder review may be revised to meet current compliance requirements. Rsahad Jackson DO 08/05/2024 9:09:35 AM This report has been signed electronically. Number of Addenda: 0 Note Initiated On: 08/05/2024 8:16 AM
--- NOTE | 2024-08-05 09:12 | OP.COLON_ITS ---
Patient Name: Robles Jerome Procedure Date: 08/05/2024 8:36 AM Date of : 1950 Age: 74 Procedure: Colonoscopy Indications: Screening for colorectal malignant neoplasm Providers: Rashad Jackson DO Referring MD: Sarah Winkler Medicines: Monitored Anesthesia Care Patient Profile: This is a 74 year old male. Refer to note in patient chart for documentation of history and physical. Patient has symptoms of chronic abdominal cramping and chronic epigastric abdominal pain. Last Colonoscopy: several years ago. Complications: No immediate complications. Procedure: Pre-Anesthesia Assessment: - Prior to the procedure, a History and Physical was performed, and patient medications and allergies were reviewed. The patient is competent. The risks and benefits of the procedure and the sedation options and risks were discussed with the patient. All questions were answered and informed consent was obtained. Patient identification and proposed procedure were verified by the physician in the pre-procedure area. Mental Status Examination: alert and oriented. Airway Examination: normal oropharyngeal airway and neck mobility. Respiratory Examination: clear to auscultation. CV Examination: normal. Prophylactic Antibiotics: The patient does not require prophylactic antibiotics. Prior Anticoagulants: The patient has taken no anticoagulant or antiplatelet agents. ASA Grade Assessment: II - A patient with mild systemic disease. After reviewing the risks and benefits, the patient was deemed in satisfactory condition to undergo the procedure. The anesthesia plan was to use monitored anesthesia care (MAC). Immediately prior to administration of medications, the patient was re-assessed for adequacy to receive sedatives. The heart rate, respiratory rate, oxygen saturations, blood pressure, adequacy of pulmonary ventilation, and response to care were monitored throughout the procedure. The physical status of the patient was re-assessed after the procedure. After I obtained informed consent, the scope was passed under direct vision. Throughout the procedure, the patient's blood pressure, pulse, and oxygen saturations were monitored continuously. The Colonoscope was introduced through the anus and advanced to the cecum, identified by appendiceal orifice and ileocecal valve. The colonoscopy was performed without difficulty. The patient tolerated the procedure well. The quality of the bowel preparation was adequate. The ileocecal valve, appendiceal orifice, and rectum were photographed. Scope In: 8:38:35 AM Scope Withdrawal Time 0 hours 11 minutes 44 seconds Scope Out: 8:53:45 AM Total Procedure Duration Time 0 hours 15 minutes 10 seconds Findings: The perianal and digital rectal examinations were normal. A few small-mouthed diverticula were found in the recto-sigmoid colon and sigmoid colon. An 8 mm polyp was found in the splenic flexure. The polyp was sessile. The polyp was removed with a hot snare. Resection and retrieval were complete. Verification of patient identification for the specimen was done. Estimated blood loss was minimal. There was a large lipoma, [Diameter] in the ascending colon. Impression: - Diverticulosis in the recto-sigmoid colon and in the sigmoid colon. - One 8 mm polyp at the splenic flexure, removed with a hot snare. Resected and retrieved. Recommendation: - Repeat colonoscopy in 5 years for surveillance. - Continue present medications. Procedure Code(s): --- Professional --- 01837, Colonoscopy, flexible; with removal of tumor(s), polyp(s), or other lesion(s) by snare technique CPT copyright 2021 [employer]. All rights reserved. The codes documented in this report are preliminary and upon construction millwright review may be revised to meet current compliance requirements. Rashad Jackson DO 08/05/2024 9:12:20 AM This report has been signed electronically. Number of Addenda: 0 Note Initiated On: 08/05/2024 8:36 AM
--- NOTE | 2024-08-05 09:12 | OP.CCLET_ITS ---
08/05/2024 Sarah Winkler [address] [place] [address] Re : Colonoscopy procedure for Robles Jerome Dear Dr. Winkler This procedure was performed on July. My impressions and recommendations are as follows: Impressions : - Diverticulosis in the recto-sigmoid colon and in the sigmoid colon. - One 8 mm polyp at the splenic flexure, removed with a hot snare. Resected and retrieved. Recommendations : - Repeat colonoscopy in 5 years for surveillance. - Continue present medications. My findings are described in the full procedure note, which is enclosed. If I can be of further assistance, please feel free to contact me at . Sincerely, Rashad Jackson, 08/05/2024 9:12:20 AM This report has been signed electronically.
--- NOTE | 2024-08-05 11:27 | PCM.POSTANE2 ---
Anesthesia Postop Eval I Sum Postop Eval Completion status Anesthesia document: Postop Eval 1 completed: Yes Anesthesia Postop Eval I Summary Anesthesia Postop Eval I Summary: Anesthesia Postop Eval I: Assessment Summary Airway patent Yes 08/05/24 09:05 [email or web address] Spontaneous unlabored Yes 08/05/24 09:05 [email or web address] respirations Mental status Awake,Calm 08/05/24 09:05 [email or web address] nausea No 08/05/24 09:05 [email or web address] Vomiting No 08/05/24 09:05 [email or web address] Anesthesia Postop Eval I: Fluid Summary Crystalloid volume administer 800 08/05/24 09:05 [email or web address] (ml) Colloids volume administered ( ml) Blood Product volume administered (ml) Total IV fluid infused 800 08/05/24 09:05 [email or web address] Anesthesia Postop Eval I: Summary Notes Anesthesia Complication No 08/05/24 09:05 [email or web address] Anesthesia Complication Comment: Post-operative progress note Anesthesia: Postop Eval II Evaluation Mental status: Awake Pain Level: 0 nausea: No Vomiting: No Complications Anesthesia Complication: No
== END 2024-08-05 09:34 | disposition home or self-care (01) ==
LOC: EN 06:40 → AC 06:45
PROVIDERS: PCP Internal Medicine; Referring Provider Internal Medicine; Visit Provider Internal Medicine Gastroenterology
PROC: 0DJD8ZZ Inspection of Lower Intestinal Tract, Via Natural or Artificial Opening Endoscopic (ICD-10-PCS; CPT 45378; principal; 2024-08-05 07:40)
DX: Z12.11 Encounter for screening for malignant neoplasm of colon (principal); E11.9 Type 2 diabetes mellitus without complications; K21.9 Gastro-esophageal reflux disease without esophagitis; I10 Essential (primary) hypertension; E78.00 Pure hypercholesterolemia, unspecified; K63.5 Polyp of colon; Z79.82 Long term (current) use of aspirin; K29.80 Duodenitis without bleeding; K31.7 Polyp of stomach and duodenum; K57.30 Diverticulosis of large intestine without perforation or abscess without bleeding; Z87.891 Personal history of nicotine dependence; K29.50 Unspecified chronic gastritis without bleeding; Z79.899 Other long term (current) drug therapy; Z96.641 Presence of right artificial hip joint; E66.9 Obesity, unspecified; K26.9 Duodenal ulcer, unspecified as acute or chronic, without hemorrhage or perforation; K31.A19 Gastric intestinal metaplasia without dysplasia, unspecified site; Q40.2 Other specified congenital malformations of stomach
CPT/HCPCS: 44361; 45385; 82962; 88305; 88342; J2405

== ENCOUNTER → 2024-11-01 | Outpatient (CLI) | payer MEDICARE, SELFPAY ==
[2024-11-01 11:50] LABS: PSA,Total- Diagnostic 0.05 ng/mL (0.00-4.00)
== END | disposition home or self-care (01) ==
LOC: LAB 10:18
PROVIDERS: PCP Internal Medicine; Referring Provider Urology; Visit Provider Urology
DX: C61 Malignant neoplasm of prostate (principal)
CPT/HCPCS: 36415; 84153